=== PATIENT | female | born 1945 | race Caucasian/White ===

== ENCOUNTER 2016-07-08 09:57 | Outpatient (RCR) | payer MEDICARE, OTHER ==
--- OUTSIDE RECORDS SUMMARY | 2016-04-20 09:28 | XMS REPORT | Continuity of Care Document ---
Author Author [facility] Organization [facility] Address Unknown Phone Unavailable Care Team Providers Care Electronic Scanner Operator Name Role Phone Carlos Manuel Palumbo PCP [phone] Source Comments Some departments are not documenting in the electronic medical record. If you do not see the information that you expected, contact Release of Information in the Health Information Management department at [phone] for further assistance in locating additional records.[facility] Active Allergies and Adverse Reactions Allergen Noted Date Severity Reactions Comments Clindamycin 12/17/2014 Medium RASH Percolone 12/17/2014 Low NAUSEA ONLY Tetanus And Diphtheria 12/17/2014 Medium RASH Toxoids, Adsorbed, Adult Current Medications Prescription Sig. Disp. Refills Start End Date Status Date niacin (NIACIN) 100 mg Take 1,000 mg by mouth. Active tab hyoscyamine (ANASPAZ; Place 125 mcg under Active NULEV; SYMAX FASTABS; tongue every 4 hours as HYOMAX-FT; ED-SPAZ; needed for Cramps. OSCIMIN) 0.125 mg rapid dissolve tablet citalopram (CELEXA) 10 mg Take 10 mg by mouth Active tablet daily. pantoprazole DR Take 40 mg by mouth Active (PROTONIX) 40 mg tablet daily. levothyroxine (SYNTHROID) Take 175 mcg by mouth Active 175 mcg tablet daily. HYDROCODONE BIT/HOMATROP Take by mouth as Needed. Active ME-BR (HYDROCODONE Indications: 10-325 mg COMPOUND PO) aspirin 325 mg tablet Take 325 mg by mouth Active daily. zolpidem (AMBIEN) 10 mg Take 1 Tab by mouth at 30 Tab 1 12/18/19 Active tablet bedtime as needed for 15 Sleep. trametinib (MEKINIST) 2 Take 1 Tab by mouth 30 Tab 3 03/17/20 Active mg tab daily. Take at the same 15 time every day. dabrafenib 75 mg cap Take 2 Caps by mouth 120 Cap 3 03/17/20 Active twice daily. Take on an 15 empty stomach, at least 1 hour before or 2 hours after food. Active Problems Problem Noted Date Melanoma (HCC) 01/02/2015 Overview: Now recurrent, metastatic Coronary artery disease 01/02/2015 Overview: Asymptomatic at this time. Hypothyroidism 01/02/2015 Overview: Euthyroid by history on exam today. Social History Tobacco Use Types Packs/Day Years Used Date Never Smoker Last Filed Vital Signs Vital Sign Reading Time Taken Blood Pressure 163/76 12/17/2014 11:35 AM CDT Pulse 66 12/17/2014 11:35 AM CDT Temperature 36.6 C (97.9 F) 12/17/2014 11:35 AM CDT Respiratory Rate 20 12/17/2014 11:35 AM CDT Height 1.714 m (5' 7.48") 12/17/2014 11:35 AM CDT Weight 92.352 kg (203 lb 9.6 oz) 12/17/2014 11:35 AM CDT Body Mass Index 31.44 12/17/2014 11:35 AM CDT Oxygen Saturation 100% 12/17/2014 11:35 AM CDT Plan of Care Health Maintenance Due Date Last Done Comments Physical (Comprehensive) 01/18/1952 Exam Pertussis Vaccine 01/18/1956 Tetanus Vaccine 1962 Breast Cancer Screening 1985 Colorectal Cancer 1995 Screening Shingles Vaccine 2005 Osteoporosis Screening 2010 Prevnar/Pneumovax (#1) 2010 Influenza Vaccine 03/18/2016 Results from Last 3 Months Not on file
[2016-04-20 09:30] LABS: BASOPHILS # (AUTO) 0.1 10^3/uL (0.0-0.1); BASOPHILS % (AUTO) 1 % (0-10); EOSINOPHILS # (AUTO) 0.3 10^3/uL (0.0-0.3); EOSINOPHILS % (AUTO) 4 % (0-10); LYMPHOCYTES # (AUTO) 0.8 X 10^3 (1.0-4.0); LYMPHOCYTES % (AUTO) 13 % (12-44); MEAN CORPUSCULAR HEMOGLOBIN 28 PG (25-34); MEAN CORPUSCULAR HGB CONC 33 G/DL (32-36); MEAN CORPUSCULAR VOLUME 87 FL (80-99); MEAN PLATELET VOLUME 9.2 FL (7.4-10.4); MONOCYTES # (AUTO) 0.8 X 10^3 (0.0-1.0); MONOCYTES % (AUTO) 11 % (0-12); NEUTROPHILS # (AUTO) 4.7 X 10^3 (1.8-7.8); NEUTROPHILS % (AUTO) 71 % (42-75); PLATELET COUNT 346 10^3/uL (130-400); RED BLOOD COUNT 3.68 10^6/uL (4.35-5.85); WHITE BLOOD COUNT 6.6 10^3/uL (4.3-11.0)
[2016-04-20 10:14] LABS: ALBUMIN 4.2 G/DL (3.2-4.5); BILIRUBIN,TOTAL 2.3 MG/DL (0.1-1.0); CALCIUM 10.7 MG/DL (8.5-10.1); CREATININE SERUM 1.27 MG/DL (0.60-1.30); POTASSIUM 3.8 MMOL/L (3.6-5.0); TOTAL PROTEIN 6.9 G/DL (6.4-8.2)
[2016-04-23 10:41] LABS: BASOPHILS # (AUTO) 0.1 10^3/uL (0.0-0.1); BASOPHILS % (AUTO) 1 % (0-10); EOSINOPHILS # (AUTO) 0.2 10^3/uL (0.0-0.3); EOSINOPHILS % (AUTO) 4 % (0-10); LYMPHOCYTES # (AUTO) 0.8 X 10^3 (1.0-4.0); LYMPHOCYTES % (AUTO) 14 % (12-44); MEAN CORPUSCULAR HEMOGLOBIN 29 PG (25-34); MEAN CORPUSCULAR HGB CONC 32 G/DL (32-36); MEAN CORPUSCULAR VOLUME 88 FL (80-99); MONOCYTES # (AUTO) 0.5 X 10^3 (0.0-1.0); MONOCYTES % (AUTO) 8 % (0-12); NEUTROPHILS # (AUTO) 4.2 X 10^3 (1.8-7.8); NEUTROPHILS % (AUTO) 73 % (42-75); PLATELET COUNT 441 10^3/uL (130-400); RED BLOOD COUNT 4.04 10^6/uL (4.35-5.85); RED CELL DISTRIBUTION WIDTH 15.5 % (10.0-14.5); WHITE BLOOD COUNT 5.8 10^3/uL (4.3-11.0)
[2016-04-23 11:04] LABS: ALBUMIN 4.3 G/DL (3.2-4.5); BILIRUBIN,TOTAL 1.6 MG/DL (0.1-1.0); CALCIUM 10.1 MG/DL (8.5-10.1); CREATININE SERUM 1.15 MG/DL (0.60-1.30); POTASSIUM 3.5 MMOL/L (3.6-5.0); TOTAL PROTEIN 7.2 G/DL (6.4-8.2)
[2016-04-27 09:17] LABS: BASOPHILS # (AUTO) 0.1 10^3/uL (0.0-0.1); BASOPHILS % (AUTO) 2 % (0-10); EOSINOPHILS # (AUTO) 0.5 10^3/uL (0.0-0.3); EOSINOPHILS % (AUTO) 8 % (0-10); LYMPHOCYTES # (AUTO) 1.1 X 10^3 (1.0-4.0); LYMPHOCYTES % (AUTO) 21 % (12-44); MEAN CORPUSCULAR HEMOGLOBIN 29 PG (25-34); MEAN CORPUSCULAR HGB CONC 32 G/DL (32-36); MEAN CORPUSCULAR VOLUME 89 FL (80-99); MEAN PLATELET VOLUME 9.3 FL (7.4-10.4); MONOCYTES # (AUTO) 0.4 X 10^3 (0.0-1.0); MONOCYTES % (AUTO) 8 % (0-12); NEUTROPHILS # (AUTO) 3.3 X 10^3 (1.8-7.8); NEUTROPHILS % (AUTO) 61 % (42-75); PLATELET COUNT 454 10^3/uL (130-400); RED BLOOD COUNT 3.74 10^6/uL (4.35-5.85); RED CELL DISTRIBUTION WIDTH 15.8 % (10.0-14.5); WHITE BLOOD COUNT 5.3 10^3/uL (4.3-11.0)
[2016-04-27 09:59] LABS: BILIRUBIN,TOTAL 0.8 MG/DL (0.1-1.0); CALCIUM 9.7 MG/DL (8.5-10.1); CREATININE SERUM 0.97 MG/DL (0.60-1.30); POTASSIUM 4.2 MMOL/L (3.6-5.0); TOTAL PROTEIN 6.6 G/DL (6.4-8.2)
[2016-05-04 10:14] LABS: BASOPHILS # (AUTO) 0.1 10^3/uL (0.0-0.1); BASOPHILS % (AUTO) 2 % (0-10); EOSINOPHILS # (AUTO) 0.4 10^3/uL (0.0-0.3); EOSINOPHILS % (AUTO) 8 % (0-10); LYMPHOCYTES # (AUTO) 0.6 X 10^3 (1.0-4.0); LYMPHOCYTES % (AUTO) 13 % (12-44); MEAN CORPUSCULAR HEMOGLOBIN 28 PG (25-34); MEAN CORPUSCULAR HGB CONC 31 G/DL (32-36); MEAN CORPUSCULAR VOLUME 89 FL (80-99); MEAN PLATELET VOLUME 9.4 FL (7.4-10.4); MONOCYTES # (AUTO) 0.4 X 10^3 (0.0-1.0); MONOCYTES % (AUTO) 8 % (0-12); NEUTROPHILS # (AUTO) 3.1 X 10^3 (1.8-7.8); NEUTROPHILS % (AUTO) 69 % (42-75); PLATELET COUNT 345 10^3/uL (130-400); RED BLOOD COUNT 3.73 10^6/uL (4.35-5.85); RED CELL DISTRIBUTION WIDTH 15.6 % (10.0-14.5); WHITE BLOOD COUNT 4.5 10^3/uL (4.3-11.0)
[2016-05-04 11:20] LABS: ALBUMIN 4.1 G/DL (3.2-4.5); BILIRUBIN,TOTAL 0.7 MG/DL (0.1-1.0); CALCIUM 9.7 MG/DL (8.5-10.1); CREATININE SERUM 1.23 MG/DL (0.60-1.30); POTASSIUM 4.6 MMOL/L (3.6-5.0); TOTAL PROTEIN 6.8 G/DL (6.4-8.2)
[2016-05-11 09:16] LABS: BASOPHILS # (AUTO) 0.1 10^3/uL (0.0-0.1); BASOPHILS % (AUTO) 2 % (0-10); EOSINOPHILS # (AUTO) 0.5 10^3/uL (0.0-0.3); EOSINOPHILS % (AUTO) 10 % (0-10); LYMPHOCYTES # (AUTO) 0.6 X 10^3 (1.0-4.0); LYMPHOCYTES % (AUTO) 13 % (12-44); MEAN CORPUSCULAR HEMOGLOBIN 28 PG (25-34); MEAN CORPUSCULAR HGB CONC 32 G/DL (32-36); MEAN CORPUSCULAR VOLUME 88 FL (80-99); MEAN PLATELET VOLUME 9.3 FL (7.4-10.4); MONOCYTES # (AUTO) 0.4 X 10^3 (0.0-1.0); MONOCYTES % (AUTO) 8 % (0-12); NEUTROPHILS # (AUTO) 3.3 X 10^3 (1.8-7.8); NEUTROPHILS % (AUTO) 68 % (42-75); PLATELET COUNT 389 10^3/uL (130-400); RED BLOOD COUNT 3.78 10^6/uL (4.35-5.85); RED CELL DISTRIBUTION WIDTH 15.1 % (10.0-14.5); WHITE BLOOD COUNT 4.9 10^3/uL (4.3-11.0)
[2016-05-11 10:00] LABS: ALBUMIN 4.1 G/DL (3.2-4.5); BILIRUBIN,TOTAL 0.5 MG/DL (0.1-1.0); CALCIUM 9.5 MG/DL (8.5-10.1); CREATININE SERUM 1.26 MG/DL (0.60-1.30); POTASSIUM 4.8 MMOL/L (3.6-5.0); TOTAL PROTEIN 6.8 G/DL (6.4-8.2)
[2016-05-25 09:23] LABS: BASOPHILS % (AUTO) 1 % (0-10); EOSINOPHILS # (AUTO) 0.5 10^3/uL (0.0-0.3); EOSINOPHILS % (AUTO) 8 % (0-10); LYMPHOCYTES # (AUTO) 1.1 X 10^3 (1.0-4.0); LYMPHOCYTES % (AUTO) 15 % (12-44); MEAN CORPUSCULAR HEMOGLOBIN 28 PG (25-34); MEAN CORPUSCULAR HGB CONC 32 G/DL (32-36); MEAN CORPUSCULAR VOLUME 86 FL (80-99); MEAN PLATELET VOLUME 9.2 FL (7.4-10.4); MONOCYTES # (AUTO) 0.6 X 10^3 (0.0-1.0); MONOCYTES % (AUTO) 9 % (0-12); NEUTROPHILS # (AUTO) 4.7 X 10^3 (1.8-7.8); NEUTROPHILS % (AUTO) 68 % (42-75); PLATELET COUNT 339 10^3/uL (130-400); RED BLOOD COUNT 3.76 10^6/uL (4.35-5.85); RED CELL DISTRIBUTION WIDTH 14.9 % (10.0-14.5)
[2016-05-25 10:05] LABS: ALBUMIN 4.2 G/DL (3.2-4.5); BILIRUBIN,TOTAL 0.5 MG/DL (0.1-1.0); CALCIUM 9.9 MG/DL (8.5-10.1); CREATININE SERUM 1.15 MG/DL (0.60-1.30); POTASSIUM 4.6 MMOL/L (3.6-5.0); TOTAL PROTEIN 6.5 G/DL (6.4-8.2)
[2016-06-09 14:03] LABS: BASOPHILS # (AUTO) 0.1 10^3/uL (0.0-0.1); BASOPHILS % (AUTO) 1 % (0-10); EOSINOPHILS # (AUTO) 0.3 10^3/uL (0.0-0.3); EOSINOPHILS % (AUTO) 5 % (0-10); LYMPHOCYTES # (AUTO) 0.9 X 10^3 (1.0-4.0); LYMPHOCYTES % (AUTO) 16 % (12-44); MEAN CORPUSCULAR HEMOGLOBIN 27 PG (25-34); MEAN CORPUSCULAR HGB CONC 32 G/DL (32-36); MEAN CORPUSCULAR VOLUME 84 FL (80-99); MONOCYTES # (AUTO) 0.5 X 10^3 (0.0-1.0); MONOCYTES % (AUTO) 10 % (0-12); NEUTROPHILS # (AUTO) 3.7 X 10^3 (1.8-7.8); NEUTROPHILS % (AUTO) 68 % (42-75); PLATELET COUNT 320 10^3/uL (130-400); RED BLOOD COUNT 3.76 10^6/uL (4.35-5.85); RED CELL DISTRIBUTION WIDTH 15.1 % (10.0-14.5); WHITE BLOOD COUNT 5.5 10^3/uL (4.3-11.0)
[2016-06-09 14:35] LABS: ALBUMIN 4.2 G/DL (3.2-4.5); BILIRUBIN,TOTAL 0.4 MG/DL (0.1-1.0); CALCIUM 10.2 MG/DL (8.5-10.1); CREATININE SERUM 1.18 MG/DL (0.60-1.30); POTASSIUM 5.2 MMOL/L (3.6-5.0); TOTAL PROTEIN 6.6 G/DL (6.4-8.2)
[2016-06-23 10:03] LABS: BASOPHILS # (AUTO) 0.1 10^3/uL (0.0-0.1); BASOPHILS % (AUTO) 1 % (0-10); EOSINOPHILS # (AUTO) 0.3 10^3/uL (0.0-0.3); EOSINOPHILS % (AUTO) 5 % (0-10); LYMPHOCYTES # (AUTO) 0.9 X 10^3 (1.0-4.0); LYMPHOCYTES % (AUTO) 18 % (12-44); MEAN CORPUSCULAR HEMOGLOBIN 26 PG (25-34); MEAN CORPUSCULAR HGB CONC 31 G/DL (32-36); MEAN CORPUSCULAR VOLUME 83 FL (80-99); MONOCYTES # (AUTO) 0.5 X 10^3 (0.0-1.0); MONOCYTES % (AUTO) 10 % (0-12); NEUTROPHILS # (AUTO) 3.4 X 10^3 (1.8-7.8); NEUTROPHILS % (AUTO) 66 % (42-75); PLATELET COUNT 327 10^3/uL (130-400); RED BLOOD COUNT 4.26 10^6/uL (4.35-5.85); RED CELL DISTRIBUTION WIDTH 15.3 % (10.0-14.5); WHITE BLOOD COUNT 5.1 10^3/uL (4.3-11.0)
[2016-06-23 10:37] LABS: ALBUMIN 4.4 G/DL (3.2-4.5); BILIRUBIN,TOTAL 0.5 MG/DL (0.1-1.0); CALCIUM 9.9 MG/DL (8.5-10.1); CREATININE SERUM 1.28 MG/DL (0.60-1.30); POTASSIUM 4.9 MMOL/L (3.6-5.0)
[~2016-07-08 09:57] MED LIST: ACET-2267 PO; ACYC400T PO; AMT10T; ASP325T PO; ATOR80TA; BENZ200C25 PO; CALC-671 PO; CITA10TA PO; CITA10TA7 PO; CLD600T PO; CLN150C PO; DABR75CA PO; DICY10CA26 PO; ESCT10T PO; FENO135C PO; FLT05NA16 NSEACH; FLUT16SP22 NS; GABA-486 PO; HYDR-3454 PO; HYDR-3812 PO; HYDR-3820 PO; HYOS0.1216 PO; HYOS0.1217 PO; HYOS0.127 PO; LCT30U PO; LEVO75TA57 PO; LEVO75TA6 PO; LEVSIN; LUBI24CA PO; MAGNESIUM PO; METO50TA7 PO; NAPR220T76 PO; NFBIOT1000 PO; NIA500ERT PO; NIAC100045 PO; NTR.4SL SL; OMEG1CAP74 PO; ONDA4TAB10 PO; PANT40TA PO; PANT40TA3 PO; PNT40TEC PO; POLY119P PO; POLY17PO23 PO; PROVIGIL; RNT150T PO; SYNTHROID; TRAM2TAB PO; TRAM50TA2 PO; TRIA1CAP PO; TRM50T PO; VEMU240T PO; VITD PO; ZANTAC PO
[2016-07-08 10:11] LABS: BASOPHILS # (AUTO) 0.1 10^3/uL (0.0-0.1); BASOPHILS % (AUTO) 1 % (0-10); EOSINOPHILS # (AUTO) 0.3 10^3/uL (0.0-0.3); EOSINOPHILS % (AUTO) 4 % (0-10); LYMPHOCYTES # (AUTO) 0.8 X 10^3 (1.0-4.0); LYMPHOCYTES % (AUTO) 13 % (12-44); MEAN CORPUSCULAR HEMOGLOBIN 26 PG (25-34); MEAN CORPUSCULAR HGB CONC 31 G/DL (32-36); MEAN CORPUSCULAR VOLUME 84 FL (80-99); MEAN PLATELET VOLUME 10.1 FL (7.4-10.4); MONOCYTES # (AUTO) 0.5 X 10^3 (0.0-1.0); MONOCYTES % (AUTO) 9 % (0-12); NEUTROPHILS # (AUTO) 4.3 X 10^3 (1.8-7.8); NEUTROPHILS % (AUTO) 73 % (42-75); PLATELET COUNT 302 10^3/uL (130-400); RED BLOOD COUNT 4.29 10^6/uL (4.35-5.85); RED CELL DISTRIBUTION WIDTH 15.1 % (10.0-14.5); WHITE BLOOD COUNT 5.9 10^3/uL (4.3-11.0)
[2016-07-08 10:32] LABS: ALBUMIN 4.5 G/DL (3.2-4.5); BILIRUBIN,TOTAL 0.5 MG/DL (0.1-1.0); CALCIUM 10.1 MG/DL (8.5-10.1); CREATININE SERUM 1.24 MG/DL (0.60-1.30); TOTAL PROTEIN 7.2 G/DL (6.4-8.2)
== END 2016-07-19 | disposition home or self-care (01) ==
LOC: ONC 09:57
PROVIDERS: ATTEND Internal Medicine Hematology & Oncology
DX: C43.59 Malignant melanoma of other part of trunk (principal); Z85.3 Personal history of malignant neoplasm of breast; Z92.3 Personal history of irradiation; Z79.899 Other long term (current) drug therapy; Z45.2 Encounter for adjustment and management of vascular access device
CPT/HCPCS: 36415; 80053; 83615; 85025; 96523; 99213

== ENCOUNTER → 2016-08-10 | Outpatient (CLI) | payer MEDICARE, OTHER ==
--- OUTSIDE RECORDS SUMMARY | 2016-08-10 10:05 | XMS REPORT | Continuity of Care Document ---
Author Author [facility] Organization [facility] Address Unknown Phone Unavailable Care Team Providers Care Information Technology Project Manager Name Role Phone Carlos Manuel Palumbo PCP [phone] Source Comments Some departments are not documenting in the electronic medical record. If you do not see the information that you expected, contact Release of Information in the Health Information Management department at [phone] for further assistance in locating additional records.[facility] Active Allergies and Adverse Reactions Allergen [...]
--- NOTE | 2016-08-11 14:33 | Diagnostic Imaging Report ---
EXAMINATION: PET/CT subsequent. INDICATION: Melanoma. After intravenous administration of 14.95 mCi of F18-FDG, a series of overlapping emission and transmission PET images was obtained. In the coronal, transaxial and sagittal planes, the area imaged extended from the skull base through the upper thighs. The lower extremities were also included on this exam. FINDINGS: The previous PET/CT exam of 03/09/16 noted a hypermetabolic mass in the right adductor luis a muscle along the medial aspect of the right upper thigh. This lesion had a maximum SUV of 5.5. On the subsequent MRI right lower extremity exam of 03/11/16, there was a 6.6 x 3.6 x 3.8 cm enhancing mass in this area. On this study, the area of abnormal hypermetabolic activity in the adductor luis a muscle on the right has diminished considerably. The maximum SUV in this area is now only 1.04. The muscle itself also seems somewhat small and I do feel that the mass has decreased in size. In the interval since the previous study, a very small 2.7 x 3.8 cm oval area of increased activity has developed in the soft tissues along the medial aspect of the junction of the thigh and the pelvis (PET image 276 and 277 of 299). This area has a maximum SUV of 3.7. There is no discrete mass in this area on the PET/CT images, however, but there is an area of slightly altered density in the fat. This finding is questionable for malignancy. I would recommend that a repeat MRI pelvis and right upper extremity exam be performed for further evaluation. The previous exam also noted slightly increased FDG uptake anterior to the left Achilles tendon. This was felt to be a sequela of prior trauma and/or inflammation. That finding is again evident and does not seem to have changed significantly. The maximum SUV in this area is only 1.1. There is also a small focal area of slightly increased metabolic activity along the medial aspect of the proximal left tibia. This was not present on the prior exam. The maximum SUV of this lesion is only 1.1. Consequently, this is unlikely to be neoplastic in nature. Also, in the interval since the prior study, a small focus of increased activity has developed near the junction of the left maxillary sinus and left zygomatic arch. This area has a maximum SUV of 3.8. There is no sign of bony destruction in this area on the CT images. It would be unusual that this abnormal uptake is secondary to metastatic disease but that possibility cannot be entirely excluded. If further imaging is desired, then MRI would be recommended. There is also increased activity within the adenoids. The maximum SUV in this area is 4.0. This finding is unlikely to be related to metastatic disease. There is also generalized increased activity in both lobes of the thyroid. The maximum SUV is 4.2 and this too is unlikely to be secondary to neoplastic disease. There is no hypermetabolic activity within the chest or abdomen to indicate a neoplastic disease. Physiologic activity is again seen in the kidneys, bowel, bladder, brain and heart. There is also slight increased activity involving both hip and shoulder joints. This is probably degenerative in nature. IMPRESSION: 1. The hypermetabolic focus in the adductor luis a muscle on the right seen on the prior exam has diminished significantly. However, a new small focus of increased activity has developed along the medial aspect of the junction of the right thigh and the pelvis. This finding is suspicious for neoplastic disease. MRI would be recommended for additional study. 2. A new area of abnormal uptake has also developed at the zygomatic maxillary junction on the left. It would be unlikely that this is secondary to metastatic disease. Even so, that possibility should still be considered. MRI would also be recommended for further evaluation of this area. 3. There is no other hypermetabolic activity identified to indicate metastatic disease. 4. The uptake in the adenoids and thyroid gland is probably physiologic in nature although it is more pronounced than on the prior exam. 5. These results were discussed with Taisha BOYD. Dictated by: Dictated on workstation # [id number]
== END ==
LOC: RAD 10:02
PROVIDERS: ATTEND Internal Medicine Hematology & Oncology
DX: C43.59 Malignant melanoma of other part of trunk (principal)

== ENCOUNTER → 2016-10-13 | Outpatient (CLI) | payer MEDICARE, OTHER ==
[~2016-10-13] MED LIST changes: +CATHETER FLUSH 10 ML SYR IV PRN; +IOHEXOL 350 MG/ML 100 ML (OMNIPAQUE 350) VIAL IV ONE; +NS 100 ML (IVPB) BAG IV ONE
--- NOTE | 2016-10-13 12:32 | Diagnostic Imaging Report ---
PROCEDURE: CT head with and without contrast. TECHNIQUE: Multiple contiguous axial images were obtained through the brain before and after the administration of intravenous contrast. INDICATION: Fall with head injury Comparison is made to study of 02/09/2016. Ventricles and sulci are diffusely prominent. No hemorrhage is identified. There is no abnormal mass effect or shift of midline structures. There is no abnormal contrast enhancement. Calvarium is intact and the visualized paranasal sinuses are clear. Globes are also intact. IMPRESSION: No acute abnormality is detected. Dictated by: Dictated on workstation # [id number]
== END ==
LOC: RAD 11:31
PROVIDERS: ATTEND Nurse Practitioner Adult Health
DX: C43.59 Malignant melanoma of other part of trunk (principal); R26.9 Unspecified abnormalities of gait and mobility; R51 Headache; R42 Dizziness and giddiness
CPT/HCPCS: 70470

== ENCOUNTER → 2016-10-20 | Outpatient (CLI) | payer MEDICARE, OTHER ==
[~2016-10-20] MED LIST changes: -CATHETER FLUSH 10 ML SYR IV PRN; -IOHEXOL 350 MG/ML 100 ML (OMNIPAQUE 350) VIAL IV ONE; -NS 100 ML (IVPB) BAG IV ONE
--- NOTE | 2016-10-20 19:29 | Diagnostic Imaging Report ---
Digital mammogram bilateral diagnostic. INDICATION: History of right breast cancer, right breast lump. This study was compared to the prior exams of 03/19/15, 02/26/14 and 02/15/13. At this time, there is clinical concern regarding a palpable abnormality in the medial aspect of the right breast. The current study was also evaluated with a Computer Aided Detection (CAD) system. FINDINGS: On this study, there is no primary or secondary sign of malignancy involving the medial half of the right breast. Ultrasound has been scheduled for further study. The fibroglandular tissue in both breasts is heterogeneously dense. This does limit the sensitivity of this exam. As seen on the prior studies, the right breast is smaller. A few coarse calcifications have developed deep in the mid lateral aspect of the right breast. These have a generally benign appearance. There is no primary or secondary sign of malignancy involving either breast. IMPRESSION: There is no evidence of malignancy. In particular, there is no abnormality in the area of the patient's palpable area in the medial aspect of the right breast. Ultrasound has been scheduled for further study, however. ACR BI-RADS Category 0: Incomplete. (Needs additional imaging evaluation). Result letter will be mailed to the patient. Note: At least 10% of breast cancer is not imaged by mammography. Dictated by: Dictated on workstation # [id number]
--- NOTE | 2016-10-20 20:06 | Diagnostic Imaging Report ---
EXAMINATION: Ultrasound of the right breast. INDICATION: Right breast mass. FINDINGS: Reportedly, there is clinical concern regarding a palpable abnormality in the medial aspect of the right breast. The diagnostic mammogram performed earlier today failed to show any sign of malignancy in this area. On this exam, there is a well-circumscribed 0.7 x 0.7 x 0.8 cm avascular hypoechoic lesion in the 5-6 o'clock position of the breast, roughly 2 cm from the nipple. In reviewing the mammogram, there was a similar sized calcification in this area which has been present for a number of years. I do suspect that this is a benign process. There is no solid lesion to suggest malignancy. If clinical concern regarding a palpable abnormality persists, however, then biopsy should still be considered. IMPRESSION: 1. There is no evidence of malignancy. Recommendations as above. 2. These results were discussed with DEB Shine. ACR BI-RADS Category 2: Benign findings. Dictated by: Dictated on workstation # [id number]
== END ==
LOC: RAD 14:01
PROVIDERS: ATTEND Nurse Practitioner Adult Health
DX: N63 Unspecified lump in breast (principal); Z85.3 Personal history of malignant neoplasm of breast
CPT/HCPCS: 77066

== ENCOUNTER 2016-11-08 13:54 | Outpatient (RCR) | payer MEDICARE, OTHER ==
--- OUTSIDE RECORDS SUMMARY | 2016-08-16 10:22 | XMS REPORT | Continuity of Care Document ---
Author Author [facility] Organization [facility] Address Unknown Phone Unavailable Care Team Providers Care Wall Mirror Department Supervisor Name Role Phone Carlos Manuel Palumbo PCP [phone] Source Comments Some departments are not documenting in the electronic medical record. If you do not see the information that you expected, contact Release of Information in the Health Information Management department at [phone] for further assistance in locating additional records.[facility] Active Allergies and Adverse Reactions Allergen [...]
[2016-08-16 10:51] LABS: BASOPHILS % (AUTO) 1 % (0-10); EOSINOPHILS # (AUTO) 0.1 10^3/uL (0.0-0.3); EOSINOPHILS % (AUTO) 2 % (0-10); LYMPHOCYTES # (AUTO) 0.7 X 10^3 (1.0-4.0); LYMPHOCYTES % (AUTO) 12 % (12-44); MEAN CORPUSCULAR HEMOGLOBIN 26 PG (25-34); MEAN CORPUSCULAR HGB CONC 32 G/DL (32-36); MEAN CORPUSCULAR VOLUME 83 FL (80-99); MEAN PLATELET VOLUME 9.7 FL (7.4-10.4); MONOCYTES # (AUTO) 0.4 X 10^3 (0.0-1.0); MONOCYTES % (AUTO) 7 % (0-12); NEUTROPHILS # (AUTO) 4.6 X 10^3 (1.8-7.8); NEUTROPHILS % (AUTO) 78 % (42-75); PLATELET COUNT 299 10^3/uL (130-400); RED BLOOD COUNT 4.26 10^6/uL (4.35-5.85); RED CELL DISTRIBUTION WIDTH 15.7 % (10.0-14.5)
[2016-08-16 11:39] LABS: ALBUMIN 4.2 G/DL (3.2-4.5); BILIRUBIN,TOTAL 0.4 MG/DL (0.1-1.0); CALCIUM 9.9 MG/DL (8.5-10.1); CREATININE SERUM 1.31 MG/DL (0.60-1.30); POTASSIUM 4.4 MMOL/L (3.6-5.0); TOTAL PROTEIN 6.7 G/DL (6.4-8.2)
[2016-09-13 11:25] LABS: BASOPHILS % (AUTO) 1 % (0-10); EOSINOPHILS # (AUTO) 0.2 10^3/uL (0.0-0.3); EOSINOPHILS % (AUTO) 4 % (0-10); LYMPHOCYTES # (AUTO) 0.9 X 10^3 (1.0-4.0); LYMPHOCYTES % (AUTO) 15 % (12-44); MEAN CORPUSCULAR HEMOGLOBIN 26 PG (25-34); MEAN CORPUSCULAR HGB CONC 32 G/DL (32-36); MEAN CORPUSCULAR VOLUME 82 FL (80-99); MEAN PLATELET VOLUME 9.9 FL (7.4-10.4); MONOCYTES # (AUTO) 0.4 X 10^3 (0.0-1.0); MONOCYTES % (AUTO) 7 % (0-12); NEUTROPHILS # (AUTO) 4.3 X 10^3 (1.8-7.8); NEUTROPHILS % (AUTO) 74 % (42-75); PLATELET COUNT 299 10^3/uL (130-400); RED BLOOD COUNT 4.51 10^6/uL (4.35-5.85); RED CELL DISTRIBUTION WIDTH 15.3 % (10.0-14.5); WHITE BLOOD COUNT 5.8 10^3/uL (4.3-11.0)
[2016-09-13 11:57] LABS: ALBUMIN 4.1 G/DL (3.2-4.5); BILIRUBIN,TOTAL 0.5 MG/DL (0.1-1.0); CALCIUM 10.1 MG/DL (8.5-10.1); CREATININE SERUM 1.3 MG/DL (0.60-1.30); POTASSIUM 4.4 MMOL/L (3.6-5.0); TOTAL PROTEIN 6.8 G/DL (6.4-8.2)
[2016-10-11 11:45] LABS: BASOPHILS % (AUTO) 1 % (0-10); EOSINOPHILS # (AUTO) 0.1 10^3/uL (0.0-0.3); EOSINOPHILS % (AUTO) 3 % (0-10); LYMPHOCYTES # (AUTO) 0.9 X 10^3 (1.0-4.0); LYMPHOCYTES % (AUTO) 22 % (12-44); MEAN CORPUSCULAR HEMOGLOBIN 26 PG (25-34); MEAN CORPUSCULAR HGB CONC 32 G/DL (32-36); MEAN CORPUSCULAR VOLUME 82 FL (80-99); MEAN PLATELET VOLUME 9.6 FL (7.4-10.4); MONOCYTES # (AUTO) 0.5 X 10^3 (0.0-1.0); MONOCYTES % (AUTO) 12 % (0-12); NEUTROPHILS # (AUTO) 2.7 X 10^3 (1.8-7.8); NEUTROPHILS % (AUTO) 62 % (42-75); PLATELET COUNT 273 10^3/uL (130-400); RED BLOOD COUNT 4.57 10^6/uL (4.35-5.85); RED CELL DISTRIBUTION WIDTH 14.9 % (10.0-14.5); WHITE BLOOD COUNT 4.3 10^3/uL (4.3-11.0)
[2016-10-11 12:40] LABS: ALBUMIN 4.2 G/DL (3.2-4.5); BILIRUBIN,TOTAL 0.4 MG/DL (0.1-1.0); CALCIUM 10.4 MG/DL (8.5-10.1); CREATININE SERUM 1.28 MG/DL (0.60-1.30); POTASSIUM 4.7 MMOL/L (3.6-5.0)
[~2016-11-08 13:54] MED LIST changes: +NS IV 1000 ML (CANCER CTR) 1,000 ML ONE
[2016-11-08 14:24] LABS: BASOPHILS % (AUTO) 1 % (0-10); EOSINOPHILS # (AUTO) 0.1 10^3/uL (0.0-0.3); EOSINOPHILS % (AUTO) 3 % (0-10); LYMPHOCYTES # (AUTO) 0.6 X 10^3 (1.0-4.0); LYMPHOCYTES % (AUTO) 15 % (12-44); MEAN CORPUSCULAR HEMOGLOBIN 26 PG (25-34); MEAN CORPUSCULAR HGB CONC 32 G/DL (32-36); MEAN CORPUSCULAR VOLUME 82 FL (80-99); MEAN PLATELET VOLUME 9.3 FL (7.4-10.4); MONOCYTES # (AUTO) 0.3 X 10^3 (0.0-1.0); MONOCYTES % (AUTO) 8 % (0-12); NEUTROPHILS % (AUTO) 74 % (42-75); PLATELET COUNT 248 10^3/uL (130-400); RED CELL DISTRIBUTION WIDTH 14.8 % (10.0-14.5); WHITE BLOOD COUNT 4.1 10^3/uL (4.3-11.0)
[2016-11-08 14:55] LABS: ALBUMIN 4.3 G/DL (3.2-4.5); BILIRUBIN,TOTAL 0.5 MG/DL (0.1-1.0); CALCIUM 9.9 MG/DL (8.5-10.1); CREATININE SERUM 1.3 MG/DL (0.60-1.30); POTASSIUM 3.9 MMOL/L (3.6-5.0); TOTAL PROTEIN 7.3 G/DL (6.4-8.2)
== END 2016-11-14 | disposition home or self-care (01) ==
LOC: ONC 13:54
PROVIDERS: ATTEND Internal Medicine Hematology & Oncology
DX: C43.59 Malignant melanoma of other part of trunk (principal); Z85.3 Personal history of malignant neoplasm of breast; Z92.3 Personal history of irradiation; Z79.899 Other long term (current) drug therapy
CPT/HCPCS: 36591; 80053; 83615; 85025; 93005; 96360; 96361; 99213

== ENCOUNTER → 2016-11-19 | Outpatient (CLI) | payer MEDICARE, OTHER ==
[~2016-11-19] MED LIST changes: -NS IV 1000 ML (CANCER CTR) 1,000 ML ONE
--- NOTE | 2016-11-19 16:43 | Diagnostic Imaging Report ---
CLINICAL INDICATION: Patient is having dizziness, lightheadedness, off balance since 11/04/2016. Patient has history of breast cancer in 1999 and now has metastatic melanoma. Patient is currently taking chemo pills daily. EXAM: MRI of the brain performed without IV contrast. Sequences include axial DWI, ADC map, axial T2, axial FLAIR, axial T1, axial gradient echo, and sagittal T1. COMPARISON: MRI of the brain performed without IV contrast dated 05/19/2015. FINDINGS: There is no evidence of acute cerebral infarct, intracranial hemorrhage, or gross mass effect. The previously seen small area of acute cerebral infarct involving the right cerebellum has resolved, and there is not much residual high T2 signal. There is otherwise no significant change to the focal areas of high T2 signal white matter changes in both cerebral hemispheres suspected to represent chronic small vessel ischemic disease. There is normal orozco-white matter distinction. The brain parenchymal volume appears appropriate for patient's age. There is no significant midline shift or herniation. The visualized [place] vascular structures have normal flow void appearance. There is no evidence of hydrocephalus. The basal cisterns are unremarkable. The skull, extracranial soft tissue, and orbits are unremarkable. There is minimal mucosal thickening involving the ethmoid sinus. IMPRESSION: 1: There is no evidence of acute cerebral infarction, intracranial hemorrhage, hydrocephalus, or mass effect. There is no interval evidence of metastatic disease on this non-IV contrasted exam. 2: There is evolution of the previously seen acute lacunar infarct in the right cerebellum with not much residual high T2 signal in the region. 3: There is no significant change to the age-related brain parenchymal changes with chronic small vessel ischemic disease. Dictated by: Dictated on workstation # [id number]
== END ==
LOC: RAD 15:54
PROVIDERS: ATTEND Internal Medicine
DX: R42 Dizziness and giddiness (principal); Z85.3 Personal history of malignant neoplasm of breast; C43.59 Malignant melanoma of other part of trunk
CPT/HCPCS: 70551

== ENCOUNTER → 2016-12-07 | Outpatient (CLI) | payer MEDICARE, OTHER | LOC: LAB 11:03 | PROVIDERS: ATTEND Internal Medicine | DX: E03.9 Hypothyroidism, unspecified (principal) | CPT/HCPCS: 84443 ==

== ENCOUNTER 2016-12-16 05:32 | Outpatient (CLI) | payer MEDICARE, OTHER ==
[~2016-12-16] VITALS: Ht 175.3 cm; Wt 68.1 kg
[2016-12-16] MEDS ORDERED: MECL-106 PO (12:44)
[2016-12-16] MEDS ORDERED: VEMU240T PO (12:44)
== END 2016-12-16 14:17 ==
LOC: PREOP 05:32
PROVIDERS: ATTEND Surgery
DX: Z01.818 Encounter for other preprocedural examination (principal); L98.9 Disorder of the skin and subcutaneous tissue, unspecified; Z85.820 Personal history of malignant melanoma of skin

== ENCOUNTER 2016-12-22 10:59 | Day surgery (SDC) | payer MEDICARE, OTHER ==
[~2016-12-22] VITALS: Ht 175.3 cm; Wt 68.1 kg
[~2016-12-22 10:59] MED LIST changes: +MECL-106 PO
[2016-12-22 11:30] VITALS: BP 148/81
--- NOTE | 2016-12-22 11:31 | Progress Note-Pre Operative ---
Pre-Operative Progress Note H&P Reviewed The H&P was reviewed, patient examined and no changes noted. Date Seen by Provider: Dec 22, 2016 Time Seen by Provider: 11:31 Date H&P Reviewed: Dec 22, 2016 Time H&P Reviewed: 11:31 Pre-Operative Diagnosis: skin lesion RIKA WYNNE MD Dec 22, 2016 11:31 am
[2016-12-22] MEDS ORDERED: LACTATED RINGERS 1,000 ML IV PRN (11:34)
[2016-12-22] MEDS ORDERED: FAMOTIDINE 20MG/2ML IV (PEPCID) IV ONE (11:45)
[2016-12-22] MEDS ORDERED: ceFAZolin 1,000 MG (ANCEF) VIAL ONE (11:57)
[2016-12-22] MEDS ORDERED: NS (IVPB) 50 ML ONE (11:57)
[2016-12-22] MEDS ORDERED: ceFAZolin 1 GM/NS 50 ML IVPB IV ONE ×2 (12:15)
[2016-12-22] MEDS ORDERED: CATHETER FLUSH 10 ML SYR IV PRN (12:15)
[2016-12-22] MEDS ORDERED: proPOfol 200 MG/20 ML (DIPRIVAN) VIAL IV ONE (12:20)
[2016-12-22] MEDS ORDERED: ONDANSETRON 4 MG/2 ML (SDV) Z0FRAN ONE (12:20)
[2016-12-22] MEDS ORDERED: MIDAZOLAM 2 MG/2 ML (VERSED) VIAL ONE (12:20)
[2016-12-22] MEDS ORDERED: BUPIVACAINE 0.25% 30 ML (SENSORCAINE) VIAL ONE (13:04)
--- NOTE | 2016-12-22 13:47 | Progress Note-Post Operative ---
Post-Operative Progess Note Surgeon (s)/Berry Planter (s) Surgeon RIKA WYNNE MD Berry Planter: not applicable Pre-Operative Diagnosis skin lesions Post-Operative Diagnosis same Procedure & Operative Findings Date of Procedure 12/22/16 Procedure Performed/Findings excision 2 Anesthesia Type sedation with local Estimated Blood Loss Estimated blood loss (mL): minimal Specimens/Packing Specimens Removed skin lesions 2 RIKA WYNNE MD Dec 22, 2016 1:47 pm
[2016-12-22] MEDS ORDERED: TRAM50TA2 PO (13:51)
--- NOTE | 2016-12-22 13:52 | Discharge Inst-Simple/Standard ---
Discharge Inst-Standard Discharge Medications New, Converted or Re-Newed RX: RX on Chart Patient Instructions/Follow Up Plan of Care/Instructions/FU: dressings off in 48 hours. Follow-up with my nurse in 10 days for suture removal Activity as Tolerated: Yes Discharge Diet: No Restrictions RIKA WYNNE MD Dec 22, 2016 1:52 pm
[2016-12-22] MEDS ORDERED: fentaNYL INJECTION 100 MCG/2 ML AMP IVP PRN (14:00)
[2016-12-22] MEDS ORDERED: ONDANSETRON 4 MG/2 ML (SDV) Z0FRAN IVP PRN (14:00)
[2016-12-22 14:15] VITALS: BP 146/79
[2016-12-22 14:45] VITALS: BP 155/77
[2016-12-22 15:15] VITALS: BP 147/77
[2016-12-22 15:18] VITALS: BP 147/77
--- NOTE | 2016-12-22 22:47 | OPERATIVE REPORT ---
DATE OF SERVICE: 12/22/2016 PREOPERATIVE DIAGNOSES: 1. A 1 cm pigmented lesion, left supraclavicular region. 2. A 1 cm pigmented lesion, left leg. POSTOPERATIVE DIAGNOSES: 1. A 1 cm pigmented lesion, left supraclavicular region. 2. A 1 cm pigmented lesion, left leg. OPERATION: Excision of both. SURGEON: Rika Wynne MD ANESTHESIA: Sedation with local. BLOOD LOSS: Minimal. FLUIDS: 300 mL of crystalloid. TYPE OF WOUND: Type 1 (clean wound). INDICATION FOR PROCEDURE: This lady with a previous history of melanoma, presented with a 1 cm pigmented lesion over the left supraclavicular fossa and a similar lesion over the left distal leg. She was offered excision under monitored conditions. Informed consent was obtained after reviewing the procedures in detail. DESCRIPTION OF PROCEDURE: She was placed supine on the operating table, and our WORK ADJUSTMENT INSTRUCTOR administered sedation, monitoring her vital signs. A gram of Ancef was administered intravenously as prophylaxis against wound infection. Both areas were prepared and draped in the usual sterile manner. Local anesthesia was achieved using 0.25% Marcaine. By making an elliptical incision about 1.5 cm long, each of the lesions was excised. The defects were then closed using 4-0 nylon and 6-0 nylon, respectively. She tolerated the procedures well and was taken back to the nursing area in a stable condition. Job ID: [id number] DocumentID: [id number] Dictated Date: 12/22/2016 13:44:20 Manager Global Communications Date: 12/22/2016 22:47:06 Dictated By: RIKA WYNNE MD MTDD
== END 2016-12-22 15:18 | disposition home or self-care (01) ==
LOC: SDC 10:59
PROVIDERS: ATTEND Surgery
DX: L82.1 Other seborrheic keratosis (principal); D22.72 Melanocytic nevi of left lower limb, including hip; Z85.820 Personal history of malignant melanoma of skin; E03.9 Hypothyroidism, unspecified; Z95.1 Presence of aortocoronary bypass graft
CPT/HCPCS: 87081; 88305

== ENCOUNTER → 2017-02-01 | Outpatient (CLI) | payer MEDICARE, OTHER ==
[~2017-02-01] MED LIST changes: +CLOP75TA28 PO; +HYOS-20 PO; +LISI-556 PO; +METO-387 PO
--- NOTE | 2017-02-01 15:41 | Diagnostic Imaging Report ---
EXAMINATION: PET-CT TECHNIQUE: Serum glucose level at the time of the study is: 138 mg/dL. 12.8 mCi of FDG was administered intravenously followed by obtaining PET images with corresponding noncontrast CT scan images. The CT scan was performed for anatomic correlation and attenuation correction and was not performed according to the diagnostic protocol of the areas covered. The scan was performed from the whole body. INDICATION: Followup melanoma. COMPARISON: 08/10/2016 PET/CT. FINDINGS: Previous PET/CT of 08/10/2016 demonstrated a new area of increased FDG uptake in the medial aspect of the upper right thigh, and new area of activity also was in the left zygomaticomaxillary junction. There is symmetric FDG uptake in the brain. There is no definite mass seen in the left orbit on the associated localizer CT. On the superimposed PET/CT images, there is some activity that is probably from the brain projecting into the left orbit likely related to misregistration artifact. No significant FDG uptake is seen in the neck to suggest a neoplasm. The previously seen uptake in the adenoids has diminished to normal levels. In the thorax, physiologic uptake in the left ventricle is seen with mild degenerative-related activity along the shoulders seen. No suspicious hypermetabolic mass. In the abdomen and pelvis: There is expected excretion of the tracer in the urinary tract. There is focal intense area of uptake seen within the cecum. The localizer CT demonstrates no convincing associated mass. This could be physiologic or related to an inflammatory process rather than neoplasm related. In the lower extremities, there is no significant area of increased uptake seen at this time to suggest metastatic disease. Mild focus of increased activity noted along the left patellofemoral joint is likely arthritic related or posttraumatic. Previously seen areas of increased uptake along the junction of the right thigh and the perineum near the subcutaneous tissues and along the right adductor luis a muscle are not demonstrated on the current study. IMPRESSION: Focus of intense increased activity is seen in the cecum with no convincing associated mass seen on correlating CT images, likely physiologic or related to focal inflammation. No suspicious hypermetabolic mass is identified on this exam. Dictated by: Dictated on workstation # [id number]
== END ==
LOC: RAD 09:01
PROVIDERS: ATTEND Nurse Practitioner Adult Health
DX: C43.59 Malignant melanoma of other part of trunk (principal)
CPT/HCPCS: 78816

== ENCOUNTER 2017-02-03 10:28 | Outpatient (RCR) | payer MEDICARE, OTHER ==
[2016-12-07 10:59] LABS: BASOPHILS % (AUTO) 1 % (0-10); EOSINOPHILS # (AUTO) 0.1 10^3/uL (0.0-0.3); EOSINOPHILS % (AUTO) 3 % (0-10); LYMPHOCYTES # (AUTO) 0.6 X 10^3 (1.0-4.0); LYMPHOCYTES % (AUTO) 19 % (12-44); MEAN CORPUSCULAR HEMOGLOBIN 27 PG (25-34); MEAN CORPUSCULAR HGB CONC 32 G/DL (32-36); MEAN CORPUSCULAR VOLUME 84 FL (80-99); MEAN PLATELET VOLUME 9.7 FL (7.4-10.4); MONOCYTES # (AUTO) 0.4 X 10^3 (0.0-1.0); MONOCYTES % (AUTO) 12 % (0-12); NEUTROPHILS # (AUTO) 2.1 X 10^3 (1.8-7.8); NEUTROPHILS % (AUTO) 65 % (42-75); PLATELET COUNT 226 10^3/uL (130-400); RED BLOOD COUNT 4.47 10^6/uL (4.35-5.85); RED CELL DISTRIBUTION WIDTH 15.1 % (10.0-14.5); WHITE BLOOD COUNT 3.2 10^3/uL (4.3-11.0)
[2016-12-07 11:30] LABS: BILIRUBIN,TOTAL 0.4 MG/DL (0.1-1.0); CALCIUM 10.1 MG/DL (8.5-10.1); CREATININE SERUM 1.24 MG/DL (0.60-1.30); POTASSIUM 4.4 MMOL/L (3.6-5.0); TOTAL PROTEIN 7.2 G/DL (6.4-8.2)
[2017-01-05 10:23] LABS: BASOPHILS % (AUTO) 1 % (0-10); EOSINOPHILS # (AUTO) 0.2 10^3/uL (0.0-0.3); EOSINOPHILS % (AUTO) 4 % (0-10); LYMPHOCYTES % (AUTO) 18 % (12-44); MEAN CORPUSCULAR HEMOGLOBIN 27 PG (25-34); MEAN CORPUSCULAR HGB CONC 32 G/DL (32-36); MEAN CORPUSCULAR VOLUME 82 FL (80-99); MEAN PLATELET VOLUME 9.7 FL (7.4-10.4); MONOCYTES # (AUTO) 0.4 X 10^3 (0.0-1.0); MONOCYTES % (AUTO) 7 % (0-12); NEUTROPHILS # (AUTO) 3.8 X 10^3 (1.8-7.8); NEUTROPHILS % (AUTO) 70 % (42-75); PLATELET COUNT 291 10^3/uL (130-400); RED CELL DISTRIBUTION WIDTH 15.1 % (10.0-14.5); WHITE BLOOD COUNT 5.4 10^3/uL (4.3-11.0)
[2017-01-05 10:45] LABS: ALBUMIN 4.4 GM/DL (3.2-4.5); BILIRUBIN,TOTAL 0.5 MG/DL (0.1-1.0); CALCIUM 10.9 MG/DL (8.5-10.1); CREATININE SERUM 1.4 MG/DL (0.60-1.30); ICTERUS 0.5 (-100-1.9); POTASSIUM 4.6 MMOL/L (3.6-5.0); TOTAL PROTEIN 7.5 GM/DL (6.4-8.2)
[2017-01-05 11:23] LABS: MAGNESIUM 2.1 MG/DL (1.8-2.4)
[2017-01-12 11:59] LABS: CREATININE SERUM 1.46 MG/DL (0.60-1.30); ICTERUS 0.4 (-100-1.9); POTASSIUM 4.4 MMOL/L (3.6-5.0)
[2017-01-19 12:07] LABS: CALCIUM 10.6 MG/DL (8.5-10.1); CREATININE SERUM 1.31 MG/DL (0.60-1.30); POTASSIUM 5.1 MMOL/L (3.6-5.0)
[~2017-02-03 10:28] MED LIST changes: -CLOP75TA28 PO; -LISI-556 PO; -METO-387 PO
[2017-02-03 10:54] LABS: BASOPHILS % (AUTO) 1 % (0-10); EOSINOPHILS # (AUTO) 0.1 10^3/uL (0.0-0.3); EOSINOPHILS % (AUTO) 3 % (0-10); LYMPHOCYTES # (AUTO) 0.8 X 10^3 (1.0-4.0); LYMPHOCYTES % (AUTO) 17 % (12-44); MEAN CORPUSCULAR HEMOGLOBIN 27 PG (25-34); MEAN CORPUSCULAR HGB CONC 32 G/DL (32-36); MEAN CORPUSCULAR VOLUME 83 FL (80-99); MEAN PLATELET VOLUME 9.1 FL (7.4-10.4); MONOCYTES # (AUTO) 0.5 X 10^3 (0.0-1.0); MONOCYTES % (AUTO) 11 % (0-12); NEUTROPHILS # (AUTO) 3.1 X 10^3 (1.8-7.8); NEUTROPHILS % (AUTO) 69 % (42-75); PLATELET COUNT 301 10^3/uL (130-400); RED BLOOD COUNT 4.36 10^6/uL (4.35-5.85); RED CELL DISTRIBUTION WIDTH 15.3 % (10.0-14.5); WHITE BLOOD COUNT 4.5 10^3/uL (4.3-11.0)
[2017-02-03 11:22] LABS: BILIRUBIN,TOTAL 0.4 MG/DL (0.1-1.0); CALCIUM 10.1 MG/DL (8.5-10.1); CREATININE SERUM 1.26 MG/DL (0.60-1.30); POTASSIUM 4.7 MMOL/L (3.6-5.0); TOTAL PROTEIN 6.9 GM/DL (6.4-8.2)
== END 2017-03-07 | disposition home or self-care (01) ==
LOC: ONC 10:28
PROVIDERS: ATTEND Internal Medicine Hematology & Oncology
DX: C43.59 Malignant melanoma of other part of trunk (principal); C77.3 Secondary and unspecified malignant neoplasm of axilla and upper limb lymph nodes; C79.89 Secondary malignant neoplasm of other specified sites; Z85.3 Personal history of malignant neoplasm of breast; I25.10 Atherosclerotic heart disease of native coronary artery without angina pectoris; I12.9 Hypertensive chronic kidney disease with stage 1 through stage 4 chronic kidney disease, or unspecified chronic kidney disease; N18.3 Chronic kidney disease, stage 3 (moderate); E78.5 Hyperlipidemia, unspecified; R42 Dizziness and giddiness; E03.9 Hypothyroidism, unspecified; Z79.899 Other long term (current) drug therapy; Z92.21 Personal history of antineoplastic chemotherapy; Z92.3 Personal history of irradiation
CPT/HCPCS: 36415; 36591; 80048; 80053; 83615; 83735; 85025; 99213

== ENCOUNTER → 2017-03-10 | Outpatient (CLI) | payer MEDICARE, OTHER ==
[2017-03-10 11:11] LABS: THYROID STIMULATING HORMONE 1.2 UIU/ML (0.35-4.94)
== END ==
LOC: LAB 09:49
PROVIDERS: ATTEND Internal Medicine
DX: E78.5 Hyperlipidemia, unspecified (principal)
CPT/HCPCS: 80061; 84443

== ENCOUNTER 2017-04-07 09:11 | Outpatient (RCR) | payer MEDICARE, OTHER ==
[2017-03-10 10:20] LABS: BASOPHILS % (AUTO) 1 % (0-10); EOSINOPHILS # (AUTO) 0.1 10^3/uL (0.0-0.3); EOSINOPHILS % (AUTO) 4 % (0-10); LYMPHOCYTES # (AUTO) 0.7 X 10^3 (1.0-4.0); LYMPHOCYTES % (AUTO) 19 % (12-44); MEAN CORPUSCULAR HEMOGLOBIN 27 PG (25-34); MEAN CORPUSCULAR HGB CONC 32 G/DL (32-36); MEAN CORPUSCULAR VOLUME 84 FL (80-99); MONOCYTES # (AUTO) 0.4 X 10^3 (0.0-1.0); MONOCYTES % (AUTO) 12 % (0-12); NEUTROPHILS # (AUTO) 2.4 X 10^3 (1.8-7.8); NEUTROPHILS % (AUTO) 64 % (42-75); PLATELET COUNT 337 10^3/uL (130-400); RED BLOOD COUNT 4.21 10^6/uL (4.35-5.85); RED CELL DISTRIBUTION WIDTH 14.6 % (10.0-14.5); WHITE BLOOD COUNT 3.8 10^3/uL (4.3-11.0)
[2017-03-10 10:50] LABS: BILIRUBIN,TOTAL 0.5 MG/DL (0.1-1.0); CALCIUM 10.3 MG/DL (8.5-10.1); CREATININE SERUM 1.15 MG/DL (0.60-1.30); POTASSIUM 4.5 MMOL/L (3.6-5.0); TOTAL PROTEIN 6.8 GM/DL (6.4-8.2)
[2017-04-07 09:28] LABS: BASOPHILS % (AUTO) 1 % (0-10); EOSINOPHILS # (AUTO) 0.1 10^3/uL (0.0-0.3); EOSINOPHILS % (AUTO) 3 % (0-10); LYMPHOCYTES # (AUTO) 0.9 X 10^3 (1.0-4.0); LYMPHOCYTES % (AUTO) 20 % (12-44); MEAN CORPUSCULAR HEMOGLOBIN 27 PG (25-34); MEAN CORPUSCULAR HGB CONC 32 G/DL (32-36); MEAN CORPUSCULAR VOLUME 85 FL (80-99); MEAN PLATELET VOLUME 9.5 FL (7.4-10.4); MONOCYTES # (AUTO) 0.5 X 10^3 (0.0-1.0); MONOCYTES % (AUTO) 11 % (0-12); NEUTROPHILS # (AUTO) 2.7 X 10^3 (1.8-7.8); NEUTROPHILS % (AUTO) 64 % (42-75); PLATELET COUNT 312 10^3/uL (130-400); RED BLOOD COUNT 4.23 10^6/uL (4.35-5.85); RED CELL DISTRIBUTION WIDTH 14.1 % (10.0-14.5); WHITE BLOOD COUNT 4.2 10^3/uL (4.3-11.0)
[2017-04-07 10:10] LABS: ALBUMIN 4.2 GM/DL (3.2-4.5); BILIRUBIN,TOTAL 0.4 MG/DL (0.1-1.0); CALCIUM 10.1 MG/DL (8.5-10.1); CREATININE SERUM 1.21 MG/DL (0.60-1.30); MAGNESIUM 2.1 MG/DL (1.8-2.4); POTASSIUM 4.6 MMOL/L (3.6-5.0); TOTAL PROTEIN 7.3 GM/DL (6.4-8.2)
== END 2017-04-16 | disposition home or self-care (01) ==
LOC: ONC 09:11
PROVIDERS: ATTEND Internal Medicine Hematology & Oncology
DX: C77.3 Secondary and unspecified malignant neoplasm of axilla and upper limb lymph nodes; Z92.21 Personal history of antineoplastic chemotherapy; N18.3 Chronic kidney disease, stage 3 (moderate); I12.9 Hypertensive chronic kidney disease with stage 1 through stage 4 chronic kidney disease, or unspecified chronic kidney disease; C79.89 Secondary malignant neoplasm of other specified sites; Z85.3 Personal history of malignant neoplasm of breast; E78.5 Hyperlipidemia, unspecified; Z92.3 Personal history of irradiation; R42 Dizziness and giddiness; I25.10 Atherosclerotic heart disease of native coronary artery without angina pectoris; Z79.899 Other long term (current) drug therapy; C43.59 Malignant melanoma of other part of trunk; E03.9 Hypothyroidism, unspecified
CPT/HCPCS: 36591; 80053; 83615; 83735; 85025; 93005; 99213

== ENCOUNTER → 2017-06-07 | Outpatient (CLI) | payer MEDICARE, OTHER ==
[~2017-06-07] MED LIST changes: +CLOP75TA28 PO; +LISI-556 PO; +METO-387 PO
== END ==
LOC: CARD 11:51
PROVIDERS: ATTEND Internal Medicine Cardiovascular Disease
DX: I10 Essential (primary) hypertension (principal); I25.10 Atherosclerotic heart disease of native coronary artery without angina pectoris; I65.23 Occlusion and stenosis of bilateral carotid arteries; E78.4 Other hyperlipidemia; R53.1 Weakness; R06.09 Other forms of dyspnea
CPT/HCPCS: 93306

== ENCOUNTER 2017-06-08 11:21 | Outpatient (RCR) | payer MEDICARE, OTHER ==
[2017-05-12 11:11] LABS: BASOPHILS % (AUTO) 1 % (0-10); EOSINOPHILS # (AUTO) 0.2 10^3/uL (0.0-0.3); EOSINOPHILS % (AUTO) 4 % (0-10); LYMPHOCYTES # (AUTO) 0.8 X 10^3 (1.0-4.0); LYMPHOCYTES % (AUTO) 19 % (12-44); MEAN CORPUSCULAR HEMOGLOBIN 28 PG (25-34); MEAN CORPUSCULAR HGB CONC 33 G/DL (32-36); MEAN CORPUSCULAR VOLUME 85 FL (80-99); MEAN PLATELET VOLUME 9.2 FL (7.4-10.4); MONOCYTES # (AUTO) 0.5 X 10^3 (0.0-1.0); MONOCYTES % (AUTO) 11 % (0-12); NEUTROPHILS # (AUTO) 2.8 X 10^3 (1.8-7.8); NEUTROPHILS % (AUTO) 66 % (42-75); PLATELET COUNT 275 10^3/uL (130-400); RED CELL DISTRIBUTION WIDTH 13.4 % (10.0-14.5); WHITE BLOOD COUNT 4.2 10^3/uL (4.3-11.0)
[2017-05-12 11:27] LABS: ALBUMIN 4.1 GM/DL (3.2-4.5); BILIRUBIN,TOTAL 0.5 MG/DL (0.1-1.0); CALCIUM 10.4 MG/DL (8.5-10.1); CREATININE SERUM 1.34 MG/DL (0.60-1.30); POTASSIUM 4.3 MMOL/L (3.6-5.0); TOTAL PROTEIN 7.2 GM/DL (6.4-8.2)
[2017-06-08 11:46] LABS: BASOPHILS % (AUTO) 1 % (0-10); EOSINOPHILS # (AUTO) 0.3 10^3/uL (0.0-0.3); EOSINOPHILS % (AUTO) 6 % (0-10); LYMPHOCYTES # (AUTO) 0.8 X 10^3 (1.0-4.0); LYMPHOCYTES % (AUTO) 16 % (12-44); MEAN CORPUSCULAR HEMOGLOBIN 28 PG (25-34); MEAN CORPUSCULAR HGB CONC 32 G/DL (32-36); MEAN CORPUSCULAR VOLUME 86 FL (80-99); MEAN PLATELET VOLUME 9.5 FL (7.4-10.4); MONOCYTES # (AUTO) 0.6 X 10^3 (0.0-1.0); MONOCYTES % (AUTO) 11 % (0-12); NEUTROPHILS # (AUTO) 3.2 X 10^3 (1.8-7.8); NEUTROPHILS % (AUTO) 66 % (42-75); PLATELET COUNT 289 10^3/uL (130-400); RED BLOOD COUNT 4.16 10^6/uL (4.35-5.85); RED CELL DISTRIBUTION WIDTH 13.8 % (10.0-14.5); WHITE BLOOD COUNT 4.9 10^3/uL (4.3-11.0)
[2017-06-08 12:07] LABS: ALBUMIN 4.1 GM/DL (3.2-4.5); BILIRUBIN,TOTAL 0.6 MG/DL (0.1-1.0); CALCIUM 10.5 MG/DL (8.5-10.1); CREATININE SERUM 1.54 MG/DL (0.60-1.30); POTASSIUM 5.5 MMOL/L (3.6-5.0); TOTAL PROTEIN 7.1 GM/DL (6.4-8.2)
== END 2017-07-01 15:19 | disposition home or self-care (01) ==
LOC: ONC 11:21
PROVIDERS: ATTEND Internal Medicine Hematology & Oncology
DX: C43.59 Malignant melanoma of other part of trunk (principal); C77.3 Secondary and unspecified malignant neoplasm of axilla and upper limb lymph nodes; C79.89 Secondary malignant neoplasm of other specified sites; Z85.3 Personal history of malignant neoplasm of breast; I25.10 Atherosclerotic heart disease of native coronary artery without angina pectoris; I12.9 Hypertensive chronic kidney disease with stage 1 through stage 4 chronic kidney disease, or unspecified chronic kidney disease; N18.3 Chronic kidney disease, stage 3 (moderate); E78.5 Hyperlipidemia, unspecified; R42 Dizziness and giddiness; E03.9 Hypothyroidism, unspecified; Z79.899 Other long term (current) drug therapy; Z92.21 Personal history of antineoplastic chemotherapy; Z92.3 Personal history of irradiation
CPT/HCPCS: 36415; 36591; 80053; 83615; 85025; 99213

== ENCOUNTER → 2017-07-07 | Outpatient (CLI) | payer MEDICARE, OTHER ==
--- NOTE | 2017-07-07 17:55 | Diagnostic Imaging Report ---
PROCEDURE: MR imaging of the brain without contrast. TECHNIQUE: Multiplanar, multisequence MR imaging of the brain was performed without contrast. INDICATION: History of metastatic melanoma, now with decreased balance. COMPARISON: Exam compared to 11/19/2016. FINDINGS: There are no findings of acute or subacute hemorrhage, and no mass effect identified. No signal abnormalities to suggest a melanotic lesion. Old lacunar infarcts and chronic white matter small vessel sequelae are stable. Mild senescent atrophy is stable. There are no foci of abnormal diffusion restriction. There are no findings of an acute or subacute ischemic infarct. There is no evidence for focal nor generalized cerebral edema. There is no cerebellopontine angle mass or mass effect. The semicircular canals are unremarkable. Seventh and eighth cranial nerve complex appeared unremarkable. There are no abnormal extra-axial fluid collections. There is no hemorrhage. IMPRESSION: Old ischemic foci and chronic white matter disease stable. No cerebellopontine angle mass or mass effect. No acute ischemic insult and no mass, hemorrhage, or edema. Dictated by: Dictated on workstation # [id number]
== END ==
LOC: RAD 16:05
PROVIDERS: ATTEND Nurse Practitioner Adult Health
DX: G93.89 Other specified disorders of brain (principal); R42 Dizziness and giddiness; C43.59 Malignant melanoma of other part of trunk
CPT/HCPCS: 70551

== ENCOUNTER → 2017-07-12 | Outpatient (CLI) | payer MEDICARE, OTHER ==
--- NOTE | 2017-07-12 12:28 | Diagnostic Imaging Report ---
EXAMINATION: PET-CT TECHNIQUE: Serum glucose level at the time of the study is: 120 mg/dL. 13 mCi of FDG was administered intravenously followed by obtaining PET images with corresponding noncontrast CT scan images. The CT scan was performed for anatomic correlation and attenuation correction and was not performed according to the diagnostic protocol of the areas covered. The scan was performed from the head to mid thighs. INDICATION: Melanoma. COMPARISON: 02/01/17. FINDINGS: There is symmetric FDG uptake in the brain. There is no significant hypermetabolism seen in the neck. No significant hypermetabolism is seen in the chest. In the abdomen and pelvis, there is urinary tract excretion of the tracer with no suspicious hypermetabolic mass identified. The previously seen hypermetabolism in the cecum area is not present at this time. In the lower extremities, there is a mild focus of hypermetabolism with maximum SUV of 2.3, only minimally higher than baseline FDG uptake levels projecting at the level of the left knee in the patellofemoral joint region. This is perhaps related to mild inflammatory arthritis component with no definite underlying mass seen. No significant hypermetabolism is seen otherwise in the legs. IMPRESSION: No suspicious hypermetabolic mass is seen. Dictated by: Dictated on workstation # [id number]
== END ==
LOC: RAD 08:57
PROVIDERS: ATTEND Nurse Practitioner Adult Health
DX: C43.9 Malignant melanoma of skin, unspecified (principal)

== ENCOUNTER 2017-09-15 09:09 | Outpatient (RCR) | payer MEDICARE, OTHER ==
[2017-07-05 13:51] LABS: BASOPHILS # (AUTO) 0.1 10^3/uL (0.0-0.1); BASOPHILS % (AUTO) 2 % (0-10); EOSINOPHILS # (AUTO) 0.2 10^3/uL (0.0-0.3); EOSINOPHILS % (AUTO) 4 % (0-10); HEMATOCRIT 39 % (35-52); HEMOGLOBIN 12.7 G/DL (11.5-16.0); LYMPHOCYTES # (AUTO) 0.7 X 10^3 (1.0-4.0); LYMPHOCYTES % (AUTO) 14 % (12-44); MEAN CORPUSCULAR HEMOGLOBIN 27 PG (25-34); MEAN CORPUSCULAR HGB CONC 32 G/DL (32-36); MEAN CORPUSCULAR VOLUME 83 FL (80-99); MEAN PLATELET VOLUME 9.6 FL (7.4-10.4); MONOCYTES # (AUTO) 0.6 X 10^3 (0.0-1.0); MONOCYTES % (AUTO) 12 % (0-12); NEUTROPHILS # (AUTO) 3.3 X 10^3 (1.8-7.8); NEUTROPHILS % (AUTO) 69 % (42-75); PLATELET COUNT 412 10^3/uL (130-400); RED BLOOD COUNT 4.72 10^6/uL (4.35-5.85); WHITE BLOOD COUNT 4.8 10^3/uL (4.3-11.0)
[2017-07-05 14:10] LABS: ALBUMIN 4.5 GM/DL (3.2-4.5); BILIRUBIN,TOTAL 0.5 MG/DL (0.1-1.0); CALCIUM 11.9 MG/DL (8.5-10.1); CREATININE SERUM 1.73 MG/DL (0.60-1.30); MAGNESIUM 2.3 MG/DL (1.8-2.4); TOTAL PROTEIN 7.9 GM/DL (6.4-8.2)
[2017-07-07 11:50] LABS: CALCIUM 10.5 MG/DL (8.5-10.1); CREATININE SERUM 1.63 MG/DL (0.60-1.30); POTASSIUM 4.3 MMOL/L (3.6-5.0)
[2017-07-21 09:17] LABS: BASOPHILS # (AUTO) 0.1 10^3/uL (0.0-0.1); BASOPHILS % (AUTO) 2 % (0-10); EOSINOPHILS # (AUTO) 0.2 10^3/uL (0.0-0.3); EOSINOPHILS % (AUTO) 5 % (0-10); HEMATOCRIT 34 % (35-52); HEMOGLOBIN 12.1 G/DL (11.5-16.0); LYMPHOCYTES # (AUTO) 0.8 X 10^3 (1.0-4.0); LYMPHOCYTES % (AUTO) 18 % (12-44); MEAN CORPUSCULAR HEMOGLOBIN 27 PG (25-34); MEAN CORPUSCULAR HGB CONC 35 G/DL (32-36); MEAN CORPUSCULAR VOLUME 76 FL (80-99); MEAN PLATELET VOLUME 9.3 FL (7.4-10.4); MONOCYTES # (AUTO) 0.5 X 10^3 (0.0-1.0); MONOCYTES % (AUTO) 13 % (0-12); NEUTROPHILS # (AUTO) 2.7 X 10^3 (1.8-7.8); NEUTROPHILS % (AUTO) 63 % (42-75); PLATELET COUNT 321 10^3/uL (130-400); RED BLOOD COUNT 4.52 10^6/uL (4.35-5.85); RED CELL DISTRIBUTION WIDTH 14.3 % (10.0-14.5); WHITE BLOOD COUNT 4.2 10^3/uL (4.3-11.0)
[2017-07-21 09:42] LABS: ALBUMIN 4.3 GM/DL (3.2-4.5); BILIRUBIN,TOTAL 0.5 MG/DL (0.1-1.0); CALCIUM 10.9 MG/DL (8.5-10.1); CREATININE SERUM 1.58 MG/DL (0.60-1.30); POTASSIUM 4.8 MMOL/L (3.6-5.0); TOTAL PROTEIN 7.7 GM/DL (6.4-8.2)
[2017-08-04 12:00] LABS: ALBUMIN 3.9 GM/DL (3.2-4.5); BILIRUBIN,TOTAL 0.5 MG/DL (0.1-1.0); CALCIUM 10.3 MG/DL (8.5-10.1); CREATININE SERUM 1.36 MG/DL (0.60-1.30); POTASSIUM 4.2 MMOL/L (3.6-5.0); TOTAL PROTEIN 6.8 GM/DL (6.4-8.2)
[2017-08-17 09:41] LABS: BASOPHILS # (AUTO) 0.1 10^3/uL (0.0-0.1); BASOPHILS % (AUTO) 2 % (0-10); EOSINOPHILS # (AUTO) 0.2 10^3/uL (0.0-0.3); EOSINOPHILS % (AUTO) 4 % (0-10); HEMATOCRIT 37 % (35-52); HEMOGLOBIN 11.9 G/DL (11.5-16.0); LYMPHOCYTES # (AUTO) 0.6 X 10^3 (1.0-4.0); LYMPHOCYTES % (AUTO) 15 % (12-44); MEAN CORPUSCULAR HEMOGLOBIN 27 PG (25-34); MEAN CORPUSCULAR HGB CONC 33 G/DL (32-36); MEAN CORPUSCULAR VOLUME 82 FL (80-99); MEAN PLATELET VOLUME 9.4 FL (7.4-10.4); MONOCYTES # (AUTO) 0.5 X 10^3 (0.0-1.0); MONOCYTES % (AUTO) 12 % (0-12); NEUTROPHILS # (AUTO) 2.6 X 10^3 (1.8-7.8); NEUTROPHILS % (AUTO) 67 % (42-75); PLATELET COUNT 331 10^3/uL (130-400); RED BLOOD COUNT 4.45 10^6/uL (4.35-5.85); RED CELL DISTRIBUTION WIDTH 14.1 % (10.0-14.5); WHITE BLOOD COUNT 3.9 10^3/uL (4.3-11.0)
[2017-08-17 10:00] LABS: ALBUMIN 4.2 GM/DL (3.2-4.5); BILIRUBIN,TOTAL 0.7 MG/DL (0.1-1.0); CALCIUM 10.6 MG/DL (8.5-10.1); CREATININE SERUM 1.62 MG/DL (0.60-1.30); POTASSIUM 4.6 MMOL/L (3.6-5.0); TOTAL PROTEIN 7.7 GM/DL (6.4-8.2)
[~2017-09-15 09:09] MED LIST changes: +ACHD5005 PO; -HYDR-3812 PO; +NS IV 1000 ML (CANCER CTR) 1,000 ML ONE; -VEMU240T PO; +[UNRECOGNIZED DRUG - CODE] PO
[2017-09-15 09:27] LABS: BASOPHILS % (AUTO) 1 % (0-10); EOSINOPHILS # (AUTO) 0.1 10^3/uL (0.0-0.3); EOSINOPHILS % (AUTO) 4 % (0-10); HEMATOCRIT 35 % (35-52); HEMOGLOBIN 11.3 G/DL (11.5-16.0); LYMPHOCYTES # (AUTO) 0.6 X 10^3 (1.0-4.0); LYMPHOCYTES % (AUTO) 16 % (12-44); MEAN CORPUSCULAR HEMOGLOBIN 27 PG (25-34); MEAN CORPUSCULAR HGB CONC 33 G/DL (32-36); MEAN CORPUSCULAR VOLUME 82 FL (80-99); MEAN PLATELET VOLUME 9.3 FL (7.4-10.4); MONOCYTES # (AUTO) 0.4 X 10^3 (0.0-1.0); MONOCYTES % (AUTO) 11 % (0-12); NEUTROPHILS # (AUTO) 2.6 X 10^3 (1.8-7.8); NEUTROPHILS % (AUTO) 68 % (42-75); PLATELET COUNT 320 10^3/uL (130-400); RED BLOOD COUNT 4.26 10^6/uL (4.35-5.85); RED CELL DISTRIBUTION WIDTH 14.3 % (10.0-14.5); WHITE BLOOD COUNT 3.8 10^3/uL (4.3-11.0)
[2017-09-15 09:49] LABS: ALBUMIN 4.1 GM/DL (3.2-4.5); BILIRUBIN,TOTAL 0.5 MG/DL (0.1-1.0); CALCIUM 10.8 MG/DL (8.5-10.1); CREATININE SERUM 1.46 MG/DL (0.60-1.30); POTASSIUM 5.1 MMOL/L (3.6-5.0); TOTAL PROTEIN 7.2 GM/DL (6.4-8.2)
== END 2017-10-03 | disposition home or self-care (01) ==
LOC: ONC 09:09
PROVIDERS: ATTEND Internal Medicine Hematology & Oncology
DX: C43.59 Malignant melanoma of other part of trunk (principal); C77.3 Secondary and unspecified malignant neoplasm of axilla and upper limb lymph nodes; C79.89 Secondary malignant neoplasm of other specified sites; Z85.3 Personal history of malignant neoplasm of breast; I25.10 Atherosclerotic heart disease of native coronary artery without angina pectoris; I12.9 Hypertensive chronic kidney disease with stage 1 through stage 4 chronic kidney disease, or unspecified chronic kidney disease; N18.3 Chronic kidney disease, stage 3 (moderate); E78.5 Hyperlipidemia, unspecified; R42 Dizziness and giddiness; E03.9 Hypothyroidism, unspecified; Z79.899 Other long term (current) drug therapy; Z92.21 Personal history of antineoplastic chemotherapy; Z92.3 Personal history of irradiation
CPT/HCPCS: 36415; 36591; 80048; 80053; 83615; 83735; 85025; 93005; 96360; 96361; 99213

== ENCOUNTER → 2017-09-23 | Outpatient (CLI) | payer MEDICARE, OTHER ==
[~2017-09-23] MED LIST changes: -NS IV 1000 ML (CANCER CTR) 1,000 ML ONE
--- NOTE | 2017-09-23 14:12 | Diagnostic Imaging Report ---
PROCEDURE: CT chest, abdomen, and pelvis without contrast. TECHNIQUE: Multiple contiguous axial images were obtained through the chest, abdomen, and pelvis without the use of intravenous contrast. INDICATION: History of melanoma. Surveillance imaging. COMPARISON: CT abdomen of 04/16/[address] chest, abdomen, and pelvis of 06/27/2015. CT CHEST FINDINGS: No supraclavicular or axillary lymphadenopathy. Left axillary lymph node dissection is again seen. Since CT chest of 2014, the left axillary fluid collection has resolved. No mediastinal, hilar or juxtaphrenic lymphadenopathy. Heart is mildly enlarged and without pericardial effusion. Status post CABG. Normal caliber thoracic aorta with scattered atherosclerotic plaques. No pleural effusion or pneumothorax. No endoluminal nodule in the trachea. No pulmonary mass consolidation. There is a 5 mm left upper lobe pulmonary nodule that is new since prior CT of 2014. No additional pulmonary nodules. IMPRESSION: 1. A left upper lobe 5 mm pulmonary nodule is new since chest CT of 07/07/2015. This could be infectious/inflammatory etiology, though neoplasm could also have this appearance. Short-term followup imaging with CT chest in three months is advised. 2. No intrathoracic lymphadenopathy. CT ABDOMEN AND PELVIS FINDINGS: No free intraperitoneal air or fluid. Assessment of the solid abdominal viscera is limited without IV contrast. Allowing for this, the unenhanced liver and spleen are normal. Status post cholecystectomy. No biliary duct dilatation. Unenhanced pancreas is grossly normal. No adrenal mass. No renal or ureteral calculi. No obstructive uropathy. Urinary bladder is unremarkable. Uterus is normal in appearance for patient's age. No adnexal mass. There is no bowel obstruction. The stomach is normally seen with air and food debris. Normal appendix. No enlarged abdominal or pelvic lymph nodes by size criteria. There are a few subcentimeter celiac axis lymph nodes that are stable compared to CT abdomen and pelvis of 04/16/2016. No concerning focal osseous lesions. IMPRESSION: 1. No change to indicate intra-abdominal metastases when compared to CT abdomen and pelvis from 04/16/2016. 2. On today's examination, there is no splenomegaly. Dictated by: Dictated on workstation # [id number]
--- NOTE | 2017-09-23 16:19 | Diagnostic Imaging Report ---
INDICATION: Palpable lump in the left axilla. Patient has history of metastatic melanoma in 2015. TECHNIQUE: The patient was administered 26.1 mCi of technetium 99m MDP intravenously and whole-body imaging was performed after a three-hour delay. COMPARISON: Comparison is made with prior bone scan from 07/07/2015. FINDINGS: There is normal uptake of activity by the axial and appendicular skeleton. There is uptake of activity by the kidneys with excretion into the urinary bladder. There is a focus of mild uptake in the right foot, likely on a degenerative basis. No other abnormal foci of tracer accumulation is seen. IMPRESSION: Stable whole-body bone scan. There are no scintigraphic findings to suggest osseous metastatic disease. Dictated on workstation # [id number]
== END ==
LOC: RAD 11:40
PROVIDERS: ATTEND Nurse Practitioner Adult Health
DX: R91.1 Solitary pulmonary nodule (principal); Z85.820 Personal history of malignant melanoma of skin
CPT/HCPCS: 71250; 74176; 78306

== ENCOUNTER → 2017-11-17 | Outpatient (CLI) | payer MEDICARE, OTHER ==
[~2017-11-17] MED LIST changes: +ACET-2650 PO; +ASPI-808 PO; +CLON0.5T3 PO; +CLOP75TA69 PO; +POLY17PO6 PO; +PRED5DRO17 OU
== END ==
LOC: LAB 09:25
PROVIDERS: ATTEND Internal Medicine
DX: E03.9 Hypothyroidism, unspecified (principal); Z79.899 Other long term (current) drug therapy
CPT/HCPCS: 36415; 84443

== ENCOUNTER → 2017-12-21 | Outpatient (CLI) | payer MEDICARE, OTHER ==
--- NOTE | 2017-12-21 12:38 | Diagnostic Imaging Report ---
PROCEDURE: CT head without contrast. TECHNIQUE: Multiple contiguous axial images were obtained through the brain without the use of intravenous contrast. INDICATION: Dizziness, history of melanoma. FINDINGS: There is no mass, shift of the midline, or hemorrhage to suggest an acute intracranial abnormality. The ventricles are somewhat prominent but no different in size when compared to the prior exam of 02/09/2016. The senescent changes seen on the prior exam including cortical atrophy and periventricular encephalomalacia are again evident and no different. Both middle cerebral arteries do appear somewhat dense. The bone windows show no sign of a fracture or of a destructive lesion. The orbits are symmetrical and within normal limits. The sinuses are generally clear. IMPRESSION: 1. There is no evidence for an acute intracranial abnormality. 2. If clinical concern regarding an underlying abnormality persists, then MRI would be recommended for further study. Dictated by: Dictated on workstation # [id number]
== END ==
LOC: RAD 12:07
PROVIDERS: ATTEND Nurse Practitioner Adult Health
DX: C77.3 Secondary and unspecified malignant neoplasm of axilla and upper limb lymph nodes (principal); Z85.820 Personal history of malignant melanoma of skin
CPT/HCPCS: 70450

== ENCOUNTER 2018-01-11 14:50 | Outpatient (RCR) | payer MEDICARE, OTHER ==
[2017-10-20 13:47] LABS: BASOPHILS % (AUTO) 1 % (0-10); EOSINOPHILS # (AUTO) 0.2 10^3/uL (0.0-0.3); EOSINOPHILS % (AUTO) 5 % (0-10); HEMATOCRIT 35 % (35-52); HEMOGLOBIN 11.2 G/DL (11.5-16.0); LYMPHOCYTES # (AUTO) 0.8 X 10^3 (1.0-4.0); LYMPHOCYTES % (AUTO) 16 % (12-44); MEAN CORPUSCULAR HEMOGLOBIN 26 PG (25-34); MEAN CORPUSCULAR HGB CONC 32 G/DL (32-36); MEAN CORPUSCULAR VOLUME 81 FL (80-99); MEAN PLATELET VOLUME 9.6 FL (7.4-10.4); MONOCYTES # (AUTO) 0.6 X 10^3 (0.0-1.0); MONOCYTES % (AUTO) 12 % (0-12); NEUTROPHILS # (AUTO) 3.3 X 10^3 (1.8-7.8); NEUTROPHILS % (AUTO) 66 % (42-75); PLATELET COUNT 305 10^3/uL (130-400); RED BLOOD COUNT 4.32 10^6/uL (4.35-5.85); RED CELL DISTRIBUTION WIDTH 14.2 % (10.0-14.5)
[2017-10-20 14:06] LABS: ALBUMIN 4.2 GM/DL (3.2-4.5); BILIRUBIN,TOTAL 0.5 MG/DL (0.1-1.0); CALCIUM 10.1 MG/DL (8.5-10.1); CREATININE SERUM 1.58 MG/DL (0.60-1.30); POTASSIUM 4.5 MMOL/L (3.6-5.0); TOTAL PROTEIN 7.2 GM/DL (6.4-8.2)
[2017-11-17 09:44] LABS: BASOPHILS % (AUTO) 1 % (0-10); EOSINOPHILS # (AUTO) 0.3 10^3/uL (0.0-0.3); EOSINOPHILS % (AUTO) 6 % (0-10); HEMATOCRIT 37 % (35-52); HEMOGLOBIN 11.6 G/DL (11.5-16.0); LYMPHOCYTES # (AUTO) 0.7 X 10^3 (1.0-4.0); LYMPHOCYTES % (AUTO) 13 % (12-44); MEAN CORPUSCULAR HEMOGLOBIN 25 PG (25-34); MEAN CORPUSCULAR HGB CONC 32 G/DL (32-36); MEAN CORPUSCULAR VOLUME 79 FL (80-99); MEAN PLATELET VOLUME 9.6 FL (7.4-10.4); MONOCYTES # (AUTO) 0.4 X 10^3 (0.0-1.0); MONOCYTES % (AUTO) 9 % (0-12); NEUTROPHILS # (AUTO) 3.6 X 10^3 (1.8-7.8); NEUTROPHILS % (AUTO) 72 % (42-75); PLATELET COUNT 337 10^3/uL (130-400); RED BLOOD COUNT 4.64 10^6/uL (4.35-5.85); RED CELL DISTRIBUTION WIDTH 14.4 % (10.0-14.5)
[2017-11-17 10:02] LABS: ALBUMIN 4.4 GM/DL (3.2-4.5); BILIRUBIN,TOTAL 0.5 MG/DL (0.1-1.0); CALCIUM 10.5 MG/DL (8.5-10.1); CREATININE SERUM 1.4 MG/DL (0.60-1.30); POTASSIUM 4.2 MMOL/L (3.6-5.0); TOTAL PROTEIN 7.5 GM/DL (6.4-8.2)
[2017-12-15 11:07] LABS: BASOPHILS % (AUTO) 1 % (0-10); EOSINOPHILS # (AUTO) 0.2 10^3/uL (0.0-0.3); EOSINOPHILS % (AUTO) 4 % (0-10); HEMATOCRIT 35 % (35-52); HEMOGLOBIN 11.3 G/DL (11.5-16.0); LYMPHOCYTES # (AUTO) 0.6 X 10^3 (1.0-4.0); LYMPHOCYTES % (AUTO) 12 % (12-44); MEAN CORPUSCULAR HEMOGLOBIN 26 PG (25-34); MEAN CORPUSCULAR HGB CONC 33 G/DL (32-36); MEAN CORPUSCULAR VOLUME 78 FL (80-99); MEAN PLATELET VOLUME 9.4 FL (7.4-10.4); MONOCYTES # (AUTO) 0.3 X 10^3 (0.0-1.0); MONOCYTES % (AUTO) 5 % (0-12); NEUTROPHILS % (AUTO) 79 % (42-75); PLATELET COUNT 341 10^3/uL (130-400); RED BLOOD COUNT 4.43 10^6/uL (4.35-5.85); WHITE BLOOD COUNT 5.1 10^3/uL (4.3-11.0)
[2017-12-15 11:25] LABS: ALBUMIN 4.2 GM/DL (3.2-4.5); BILIRUBIN,TOTAL 0.3 MG/DL (0.1-1.0); CALCIUM 10.7 MG/DL (8.5-10.1); CREATININE SERUM 1.38 MG/DL (0.60-1.30); POTASSIUM 4.8 MMOL/L (3.6-5.0); TOTAL PROTEIN 7.3 GM/DL (6.4-8.2)
[~2018-01-11 14:50] MED LIST changes: +CLON0.5T13 PO; -CLON0.5T3 PO
[2018-01-11 15:06] LABS: BASOPHILS % (AUTO) 1 % (0-10); EOSINOPHILS # (AUTO) 0.1 10^3/uL (0.0-0.3); EOSINOPHILS % (AUTO) 2 % (0-10); HEMATOCRIT 35 % (35-52); HEMOGLOBIN 11.6 G/DL (11.5-16.0); LYMPHOCYTES # (AUTO) 0.9 X 10^3 (1.0-4.0); LYMPHOCYTES % (AUTO) 15 % (12-44); MEAN CORPUSCULAR HEMOGLOBIN 25 PG (25-34); MEAN CORPUSCULAR HGB CONC 33 G/DL (32-36); MEAN CORPUSCULAR VOLUME 77 FL (80-99); MEAN PLATELET VOLUME 9.2 FL (7.4-10.4); MONOCYTES # (AUTO) 0.6 X 10^3 (0.0-1.0); MONOCYTES % (AUTO) 10 % (0-12); NEUTROPHILS # (AUTO) 4.1 X 10^3 (1.8-7.8); NEUTROPHILS % (AUTO) 72 % (42-75); PLATELET COUNT 336 10^3/uL (130-400); RED BLOOD COUNT 4.59 10^6/uL (4.35-5.85); RED CELL DISTRIBUTION WIDTH 15.4 % (10.0-14.5); WHITE BLOOD COUNT 5.8 10^3/uL (4.3-11.0)
[2018-01-11 15:28] LABS: ALBUMIN 4.5 GM/DL (3.2-4.5); BILIRUBIN,TOTAL 0.4 MG/DL (0.1-1.0); CALCIUM 10.3 MG/DL (8.5-10.1); CREATININE SERUM 1.32 MG/DL (0.60-1.30); POTASSIUM 5.2 MMOL/L (3.6-5.0); TOTAL PROTEIN 7.4 GM/DL (6.4-8.2)
== END 2018-01-18 | disposition home or self-care (01) ==
LOC: ONC 14:50
PROVIDERS: ATTEND Internal Medicine Hematology & Oncology
DX: C43.59 Malignant melanoma of other part of trunk (principal); C77.3 Secondary and unspecified malignant neoplasm of axilla and upper limb lymph nodes; C79.89 Secondary malignant neoplasm of other specified sites; Z85.3 Personal history of malignant neoplasm of breast; I25.10 Atherosclerotic heart disease of native coronary artery without angina pectoris; I12.9 Hypertensive chronic kidney disease with stage 1 through stage 4 chronic kidney disease, or unspecified chronic kidney disease; N18.3 Chronic kidney disease, stage 3 (moderate); E78.5 Hyperlipidemia, unspecified; R42 Dizziness and giddiness; E03.9 Hypothyroidism, unspecified; Z79.899 Other long term (current) drug therapy; Z92.21 Personal history of antineoplastic chemotherapy; Z92.3 Personal history of irradiation
CPT/HCPCS: 36415; 36591; 80053; 83615; 84443; 85025; 99213

== ENCOUNTER → 2018-02-09 | Outpatient (CLI) | payer MEDICARE, OTHER ==
[2018-02-09 09:15] LABS: HEMOGLOBIN 12.4 G/DL (11.5-16.0); MEAN PLATELET VOLUME 9.5 FL (7.4-10.4); RED BLOOD COUNT 4.78 10^6/uL (4.35-5.85); RED CELL DISTRIBUTION WIDTH 16.2 % (10.0-14.5); WHITE BLOOD COUNT 5.3 10^3/uL (4.3-11.0)
[2018-02-09 09:27] LABS: ALBUMIN 4.6 GM/DL (3.2-4.5); BILIRUBIN,TOTAL 0.5 MG/DL (0.1-1.0); CALCIUM 10.7 MG/DL (8.5-10.1); CREATININE SERUM 1.44 MG/DL (0.60-1.30); POTASSIUM 4.6 MMOL/L (3.6-5.0); TOTAL PROTEIN 7.7 GM/DL (6.4-8.2)
== END ==
LOC: LAB 08:49
PROVIDERS: ATTEND Internal Medicine
DX: I10 Essential (primary) hypertension (principal); E78.4 Other hyperlipidemia; E05.90 Thyrotoxicosis, unspecified without thyrotoxic crisis or storm
CPT/HCPCS: 36415; 80053; 80061; 84443; 85027

== ENCOUNTER 2018-04-05 13:58 | Outpatient (RCR) | payer MEDICARE, OTHER ==
[2018-04-05 14:15] LABS: BASOPHILS % (AUTO) 1 % (0-10); EOSINOPHILS # (AUTO) 0.1 10^3/uL (0.0-0.3); EOSINOPHILS % (AUTO) 2 % (0-10); HEMATOCRIT 34 % (35-52); HEMOGLOBIN 11.1 G/DL (11.5-16.0); LYMPHOCYTES # (AUTO) 0.9 X 10^3 (1.0-4.0); LYMPHOCYTES % (AUTO) 19 % (12-44); MEAN CORPUSCULAR HEMOGLOBIN 26 PG (25-34); MEAN CORPUSCULAR HGB CONC 32 G/DL (32-36); MEAN CORPUSCULAR VOLUME 79 FL (80-99); MEAN PLATELET VOLUME 9.2 FL (7.4-10.4); MONOCYTES # (AUTO) 0.6 X 10^3 (0.0-1.0); MONOCYTES % (AUTO) 13 % (0-12); NEUTROPHILS % (AUTO) 65 % (42-75); PLATELET COUNT 329 10^3/uL (130-400); RED BLOOD COUNT 4.34 10^6/uL (4.35-5.85); RED CELL DISTRIBUTION WIDTH 15.4 % (10.0-14.5); WHITE BLOOD COUNT 4.6 10^3/uL (4.3-11.0)
[2018-04-05 14:33] LABS: ALBUMIN 4.2 GM/DL (3.2-4.5); BILIRUBIN,TOTAL 0.4 MG/DL (0.1-1.0); CALCIUM 10.4 MG/DL (8.5-10.1); CREATININE SERUM 1.38 MG/DL (0.60-1.30); POTASSIUM 4.2 MMOL/L (3.6-5.0); TOTAL PROTEIN 7.1 GM/DL (6.4-8.2)
== END 2018-04-16 | disposition home or self-care (01) ==
LOC: ONC 13:58
PROVIDERS: ATTEND Internal Medicine Hematology & Oncology
DX: C43.59 Malignant melanoma of other part of trunk (principal); C77.3 Secondary and unspecified malignant neoplasm of axilla and upper limb lymph nodes; C79.89 Secondary malignant neoplasm of other specified sites; Z85.3 Personal history of malignant neoplasm of breast; I25.10 Atherosclerotic heart disease of native coronary artery without angina pectoris; I12.9 Hypertensive chronic kidney disease with stage 1 through stage 4 chronic kidney disease, or unspecified chronic kidney disease; N18.3 Chronic kidney disease, stage 3 (moderate); E78.5 Hyperlipidemia, unspecified; R42 Dizziness and giddiness; E03.9 Hypothyroidism, unspecified; Z79.899 Other long term (current) drug therapy; Z92.21 Personal history of antineoplastic chemotherapy; Z92.3 Personal history of irradiation
CPT/HCPCS: 36591; 80053; 83615; 85025

== ENCOUNTER → 2018-04-21 | Outpatient (CLI) | payer MEDICARE, OTHER ==
[~2018-04-21] MED LIST changes: +GADOBUTROL 7.5 MMOL/7.5 ML (GADAVIST) VIAL IV ONE
[2018-04-21 10:35] LABS: CREATININE SERUM 1.41 MG/DL (0.60-1.30)
--- NOTE | 2018-04-21 14:03 | Diagnostic Imaging Report ---
EXAM: MRI BRAIN IAC W/WO CONTRAST INDICATION: Vestibular nerve disorder. History of breast cancer and metastatic melanoma. Dizziness. COMPARISON: MRI brain without contrast 07/07/2017. FINDINGS: Dedicated sequences to the level of the temporal bones demonstrates normal morphology with no abnormal signal, mass or enhancement. The mastoids are clear. No restricted water diffusion or hemosiderin deposition. 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 Mild scattered nonspecific T2 hyperintensities in the supratentorial white matter. No abnormal intracranial enhancement. No restricted water diffusion or hemosiderin deposition. Normal morphology including the major midline structures, sella, posterior fossa and cerebellar pontine angle. The orbits are unremarkable on this nondedicated exam. No hydrocephalus or extra-axial fluid collections. Normal intracranial flow voids. The mastoids are clear. Normal bone marrow signal. IMPRESSION: 1. Stable tiny chronic infarct in the periventricular right frontal lobe. No acute intracranial MRI findings. 2. MRI of the brain is otherwise age-appropriate with no suspicious mass or enhancement including dedicated sequences through the level of the temporal bones. Dictated by: Dictated on workstation # [id number]
== END ==
LOC: RAD 10:01
PROVIDERS: ATTEND Psychiatry & Neurology Neurology
DX: Z01.812 Encounter for preprocedural laboratory examination (principal); I63.89 Other cerebral infarction; H93.3X9 Disorders of unspecified acoustic nerve; Z85.3 Personal history of malignant neoplasm of breast; Z85.820 Personal history of malignant melanoma of skin
CPT/HCPCS: 36415; 70553; 82565; 84520

== ENCOUNTER → 2018-05-01 | Outpatient (CLI) | payer MEDICARE, OTHER ==
[~2018-05-01] MED LIST changes: -GADOBUTROL 7.5 MMOL/7.5 ML (GADAVIST) VIAL IV ONE
--- NOTE | 2018-05-01 13:27 | Diagnostic Imaging Report ---
PROCEDURE: CT chest, abdomen, and pelvis without contrast. TECHNIQUE: Multiple contiguous axial images were obtained through the chest, abdomen, and pelvis without the use of intravenous contrast. INDICATION: Breast carcinoma and metastatic melanoma. Patient complains of right lower quadrant and right-sided pelvic pain. Comparison is made with prior CT from 09/23/2017. CT chest: FINDINGS: A right chest wall port has tip at the SVC right atrial junction. No definite axillary lymphadenopathy is seen. There appeared to be multiple surgical clips in the left axilla. Mediastinal and hilar evaluation is limited without intravenous contrast but overall appearance appears similar to prior CT from September. There are coronary arterial calcifications present. No pericardial or pleural fluid is identified. Evaluation of the pulmonary parenchyma again demonstrates a small nodule in the left upper lobe approximately 4 mm in size, stable when compared with prior CT. No new pulmonary nodules are identified. IMPRESSION: Stable left upper lobe pulmonary nodule when compared with examination from 09/23/2017. CT abdomen and pelvis: FINDINGS: No discrete liver mass is identified. The gallbladder is surgically absent. Pancreas and spleen are unremarkable. No adrenal mass is identified. The kidneys are unremarkable. Aorta is nonaneurysmal. Small and large bowel loops appear nondilated and nonobstructed. There is moderate stool in the colon. There is no ascites. Small lymph nodes in the central retroperitoneum appear similar to prior CT. No mesenteric lymphadenopathy is identified. No iliac or inguinal lymphadenopathy is seen. The bladder is unremarkable. IMPRESSION: Stable noncontrast CT of the abdomen and pelvis when compared with prior study from 09/23/2017. No definite findings to suggest metastatic disease are identified. Dictated by: Dictated on workstation # [id number]
== END ==
LOC: RAD 11:46
PROVIDERS: ATTEND Internal Medicine Hematology & Oncology
DX: C50.919 Malignant neoplasm of unspecified site of unspecified female breast (principal); C43.59 Malignant melanoma of other part of trunk; R10.31 Right lower quadrant pain; R91.1 Solitary pulmonary nodule
CPT/HCPCS: 71250; 74176

== ENCOUNTER 2018-07-27 12:53 | Outpatient (RCR) | payer MEDICARE, OTHER ==
[2018-05-04 13:25] LABS: BASOPHILS % (AUTO) 1 % (0-10); EOSINOPHILS # (AUTO) 0.2 10^3/uL (0.0-0.3); EOSINOPHILS % (AUTO) 4 % (0-10); HEMATOCRIT 34 % (35-52); LYMPHOCYTES # (AUTO) 0.7 X 10^3 (1.0-4.0); LYMPHOCYTES % (AUTO) 16 % (12-44); MEAN CORPUSCULAR HEMOGLOBIN 26 PG (25-34); MEAN CORPUSCULAR HGB CONC 32 G/DL (32-36); MEAN CORPUSCULAR VOLUME 81 FL (80-99); MEAN PLATELET VOLUME 9.8 FL (7.4-10.4); MONOCYTES # (AUTO) 0.3 X 10^3 (0.0-1.0); MONOCYTES % (AUTO) 6 % (0-12); NEUTROPHILS # (AUTO) 3.1 X 10^3 (1.8-7.8); NEUTROPHILS % (AUTO) 73 % (42-75); PLATELET COUNT 251 10^3/uL (130-400); RED BLOOD COUNT 4.26 10^6/uL (4.35-5.85); RED CELL DISTRIBUTION WIDTH 15.4 % (10.0-14.5); WHITE BLOOD COUNT 4.2 10^3/uL (4.3-11.0)
[2018-05-04 13:54] LABS: ALBUMIN 4.3 GM/DL (3.2-4.5); BILIRUBIN,TOTAL 0.4 MG/DL (0.1-1.0); CALCIUM 10.2 MG/DL (8.5-10.1); CREATININE SERUM 1.53 MG/DL (0.60-1.30); POTASSIUM 4.3 MMOL/L (3.6-5.0); TOTAL PROTEIN 7.2 GM/DL (6.4-8.2)
[2018-05-31 13:19] LABS: BASOPHILS % (AUTO) 1 % (0-10); EOSINOPHILS # (AUTO) 0.2 10^3/uL (0.0-0.3); EOSINOPHILS % (AUTO) 4 % (0-10); HEMATOCRIT 37 % (35-52); HEMOGLOBIN 11.9 G/DL (11.5-16.0); LYMPHOCYTES # (AUTO) 0.9 X 10^3 (1.0-4.0); LYMPHOCYTES % (AUTO) 19 % (12-44); MEAN CORPUSCULAR HEMOGLOBIN 27 PG (25-34); MEAN CORPUSCULAR HGB CONC 32 G/DL (32-36); MEAN CORPUSCULAR VOLUME 83 FL (80-99); MEAN PLATELET VOLUME 9.5 FL (7.4-10.4); MONOCYTES # (AUTO) 0.3 X 10^3 (0.0-1.0); MONOCYTES % (AUTO) 7 % (0-12); NEUTROPHILS # (AUTO) 3.3 X 10^3 (1.8-7.8); NEUTROPHILS % (AUTO) 70 % (42-75); PLATELET COUNT 297 10^3/uL (130-400); RED BLOOD COUNT 4.49 10^6/uL (4.35-5.85); RED CELL DISTRIBUTION WIDTH 16.1 % (10.0-14.5); WHITE BLOOD COUNT 4.7 10^3/uL (4.3-11.0)
[2018-05-31 13:42] LABS: ALBUMIN 4.3 GM/DL (3.2-4.5); BILIRUBIN,TOTAL 0.5 MG/DL (0.1-1.0); CALCIUM 10.1 MG/DL (8.5-10.1); CREATININE SERUM 1.41 MG/DL (0.60-1.30); POTASSIUM 4.1 MMOL/L (3.6-5.0); TOTAL PROTEIN 7.3 GM/DL (6.4-8.2)
[2018-06-28 11:38] LABS: BASOPHILS % (AUTO) 1 % (0-10); EOSINOPHILS # (AUTO) 0.2 10^3/uL (0.0-0.3); EOSINOPHILS % (AUTO) 6 % (0-10); HEMATOCRIT 37 % (35-52); HEMOGLOBIN 11.7 G/DL (11.5-16.0); LYMPHOCYTES # (AUTO) 0.7 X 10^3 (1.0-4.0); LYMPHOCYTES % (AUTO) 18 % (12-44); MEAN CORPUSCULAR HEMOGLOBIN 27 PG (25-34); MEAN CORPUSCULAR HGB CONC 32 G/DL (32-36); MEAN CORPUSCULAR VOLUME 85 FL (80-99); MEAN PLATELET VOLUME 10.2 FL (7.4-10.4); MONOCYTES # (AUTO) 0.5 X 10^3 (0.0-1.0); MONOCYTES % (AUTO) 12 % (0-12); NEUTROPHILS # (AUTO) 2.5 X 10^3 (1.8-7.8); NEUTROPHILS % (AUTO) 64 % (42-75); PLATELET COUNT 260 10^3/uL (130-400); RED BLOOD COUNT 4.29 10^6/uL (4.35-5.85); RED CELL DISTRIBUTION WIDTH 16.5 % (10.0-14.5)
[2018-06-28 11:52] LABS: ALBUMIN 4.2 GM/DL (3.2-4.5); BILIRUBIN,TOTAL 0.4 MG/DL (0.1-1.0); CALCIUM 10.4 MG/DL (8.5-10.1); CREATININE SERUM 1.47 MG/DL (0.60-1.30)
[2018-07-27 13:16] LABS: BASOPHILS % (AUTO) 1 % (0-10); EOSINOPHILS # (AUTO) 0.1 10^3/uL (0.0-0.3); EOSINOPHILS % (AUTO) 4 % (0-10); HEMATOCRIT 39 % (35-52); LYMPHOCYTES # (AUTO) 0.6 X 10^3 (1.0-4.0); LYMPHOCYTES % (AUTO) 18 % (12-44); MEAN CORPUSCULAR HEMOGLOBIN 28 PG (25-34); MEAN CORPUSCULAR HGB CONC 33 G/DL (32-36); MEAN CORPUSCULAR VOLUME 85 FL (80-99); MEAN PLATELET VOLUME 9.9 FL (7.4-10.4); MONOCYTES # (AUTO) 0.4 X 10^3 (0.0-1.0); MONOCYTES % (AUTO) 12 % (0-12); NEUTROPHILS # (AUTO) 2.3 X 10^3 (1.8-7.8); NEUTROPHILS % (AUTO) 65 % (42-75); PLATELET COUNT 212 10^3/uL (130-400); RED BLOOD COUNT 4.59 10^6/uL (4.35-5.85); RED CELL DISTRIBUTION WIDTH 15.2 % (10.0-14.5); WHITE BLOOD COUNT 3.5 10^3/uL (4.3-11.0)
[2018-07-27 13:44] LABS: ALBUMIN 4.3 GM/DL (3.2-4.5); BILIRUBIN,TOTAL 0.5 MG/DL (0.1-1.0); CALCIUM 9.9 MG/DL (8.5-10.1); CREATININE SERUM 1.5 MG/DL (0.60-1.30); POTASSIUM 4.9 MMOL/L (3.6-5.0); TOTAL PROTEIN 7.1 GM/DL (6.4-8.2)
== END 2018-08-02 | disposition home or self-care (01) ==
LOC: ONC 12:53
PROVIDERS: ATTEND Internal Medicine Hematology & Oncology
DX: C43.59 Malignant melanoma of other part of trunk (principal); C77.3 Secondary and unspecified malignant neoplasm of axilla and upper limb lymph nodes; C79.89 Secondary malignant neoplasm of other specified sites; Z85.3 Personal history of malignant neoplasm of breast; I25.10 Atherosclerotic heart disease of native coronary artery without angina pectoris; I12.9 Hypertensive chronic kidney disease with stage 1 through stage 4 chronic kidney disease, or unspecified chronic kidney disease; N18.3 Chronic kidney disease, stage 3 (moderate); E78.5 Hyperlipidemia, unspecified; E03.9 Hypothyroidism, unspecified; Z79.899 Other long term (current) drug therapy; Z92.21 Personal history of antineoplastic chemotherapy; Z92.3 Personal history of irradiation
CPT/HCPCS: 36415; 36591; 80053; 82728; 83540; 83615; 85025

== ENCOUNTER → 2018-10-10 | Outpatient (CLI) | payer MEDICARE, OTHER ==
[~2018-10-10] MED LIST changes: -HYDR-3454 PO; +HYDR-3455 PO
--- NOTE | 2018-10-10 14:03 | Diagnostic Imaging Report ---
PROCEDURE: CT chest, abdomen, and pelvis without contrast. TECHNIQUE: Multiple contiguous axial images were obtained through the chest, abdomen, and pelvis without the use of intravenous contrast. Auto Exposure Controls were utilized during the CT exam to meet ALARA standards for radiation dose reduction. INDICATION: Melanoma. COMPARISON: Exam compared to 05/01/2018. FINDINGS: CHEST: A barely perceptible 3-4 mm ground-glass nodule in the left upper lobe is stable if not decreased from prior. No new dominant or suspicious lung mass. There is no evidence for adenopathy at this nonenhanced exam. No pneumonia or failure pattern. No effusion or pneumothorax. No acute soft tissue or osseous chest wall abnormality. ABDOMEN AND PELVIS: Colonic constipation redemonstrated without small bowel dilatation. No mesenteric or retroperitoneal adenopathy. Gallbladder is absent. No pathological biliary dilatation. Spleen, adrenals, and pancreas are unremarkable. The unobstructed kidneys appear normal. The osseous structures are nonacute. There is no ascites. IMPRESSION: CHEST: Subcentimeter ground-glass left upper lobe nodule, stable or smaller than on prior. No convincing evidence of metastatic disease and no acute finding. ABDOMEN AND PELVIS: Redemonstration of constipation without obstruction or perforation. No evidence for metastatic disease or acute abnormalities. Dictated by: Dictated on workstation # [id number]
--- NOTE | 2018-10-10 17:39 | Diagnostic Imaging Report ---
INDICATION: Malignant melanoma. TECHNIQUE: The patient was administered 26.6 mCi technetium 99m MDP intravenously and whole-body imaging was performed after 3 hours. COMPARISON: Correlation is made with prior bone scan from 09/23/2017. FINDINGS: Normal uptake of activity by the axial and appendicular skeleton is noted. There is uptake by the kidneys with excretion into the urinary bladder. Mild uptake in the right foot is again seen. There is some mild uptake at the left acromioclavicular joint. These are likely degenerative. No abnormal foci of tracer accumulation is seen to suggest osseous metastatic disease. IMPRESSION: Stable whole body bone scan. There are no scintigraphic findings of osseous metastatic disease. Dictated by: Dictated on workstation # [id number]
== END ==
LOC: CARD 11:02
PROVIDERS: ATTEND Nurse Practitioner Adult Health
DX: Z01.89 Encounter for other specified special examinations (principal); C43.59 Malignant melanoma of other part of trunk; C77.3 Secondary and unspecified malignant neoplasm of axilla and upper limb lymph nodes; L98.9 Disorder of the skin and subcutaneous tissue, unspecified; R91.8 Other nonspecific abnormal finding of lung field
CPT/HCPCS: 71250; 74176; 78306

== ENCOUNTER 2018-10-17 12:10 | Outpatient (CLI) | payer MEDICARE, OTHER ==
[~2018-10-17] VITALS: Ht 175.3 cm; Wt 72.2 kg
== END 2018-10-17 12:17 | disposition home or self-care (01) ==
LOC: PREOP 12:10
PROVIDERS: ATTEND Surgery
DX: Z01.818 Encounter for other preprocedural examination (principal)

== ENCOUNTER 2018-10-20 05:49 | Day surgery (SDC) | payer MEDICARE, OTHER ==
[~2018-10-20] VITALS: Ht 175.3 cm; Wt 72.2 kg
[2018-10-20] MEDS ORDERED: LACTATED RINGERS 1,000 ML IV PRN (06:09)
[2018-10-20 06:15] VITALS: BP 122/69
[2018-10-20] MEDS ORDERED: ceFAZolin INJECTION 1,000 MG in WATER (STERILE) FOR INJECTION 10 ML IV ONE (06:15)
[2018-10-20] MEDS ORDERED: PROPOFOL INJECTION 50 ML IV ONE (07:21)
[2018-10-20] MEDS ORDERED: BUPIVACAINE 0.5% 30 ML (SENSORCAINE) VIAL ONE (07:21)
[2018-10-20] MEDS ORDERED: LIDOCAINE/EPI 1%-1:100,000 (XYLOCAINE) 20ML ONE (07:21)
[2018-10-20] MEDS ORDERED: PROTAMINE 50 MG/5 ML VIAL ONE (07:21)
--- NOTE | 2018-10-20 07:45 | Progress Note-Pre Operative ---
Pre-Operative Progress Note H&P Reviewed The H&P was reviewed, patient examined and no changes noted. Date Seen by Provider: Oct 20, 2018 Time Seen by Provider: 07:30 Date H&P Reviewed: Oct 20, 2018 Time H&P Reviewed: 07:30 Pre-Operative Diagnosis: hx melanoma, scalp lesion ROB REYES DO Oct 20, 2018 07:45
[2018-10-20] MEDS ORDERED: MUPIROCIN 2% OINT 22 GM (BACTROBAN) TUBE ONE (08:25)
--- NOTE | 2018-10-20 08:42 | Progress Note-Post Operative ---
Post-Operative Progess Note Surgeon (s)/Formation Testing Operator (s) Surgeon ROB REYES DO Formation Testing Operator: na Pre-Operative Diagnosis hx melanoma, scalp lesion Post-Operative Diagnosis scalp lesion Procedure & Operative Findings Date of Procedure 10/20/18 Procedure Performed/Findings excision skin lesion 1.4x 2cm scalp Anesthesia Type mac c local Estimated Blood Loss Estimated blood loss (mL): min Specimens/Packing Specimens Removed scalp lesion ROB REYES DO Oct 20, 2018 08:42
--- NOTE | 2018-10-20 08:50 | Discharge Inst-Simple/Standard ---
Discharge Inst-Standard Patient Instructions/Follow Up Plan of Care/Instructions/FU: 1-2 weeks Bob Activity as Tolerated: Yes Discharge Diet: Regular Diet Other Inst to Patient Follow up Appt: Make appointment for 1-2 week. Instructions: May shower in 24 hours, no tub bath or soaking. Keep area clean and dry. Use incentive spirometer at home as directed. No Smoking Skin/Wound Care: You have antibiotic cream over incision. Repeat once in 24 hours and then just keep clean and dry. Symptoms to Report: Appetite Changes, Extremity Discoloration, Numbness/Tingling, Swelling Increased , Bleeding Excessive, Eyesight Changes, Pain Increased, Urine Color Change, Constipation(Persistent), Fever over 101 degree F, Pain/Pressure in chest, Urinating Difficulty, Cough Up/Vomit Blood, Heart Beat Irreg/Pounding, Pain/ Pressure in jaw, Vaginal Bleeding Increase, Cramps in feet or legs, Lightheadedness, Pain/Pressure in shoulder, Diarrhea(Persistent), Memory Changes Suddenly, Questions/Concerns, Weight gain consecutive days, Dizziness/ Fainting, Nausea/Vomiting, Shortness of Breath, Weight gain over 2 pounds If questions or concerns contact your physician Or seek help at emergency department. ROB REYES DO Oct 20, 2018 08:50
[2018-10-20 09:05] VITALS: BP 142/75
[2018-10-20 09:10] VITALS: BP 142/75
[2018-10-20 09:35] VITALS: BP 148/77
--- NOTE | 2018-10-20 13:40 | OPERATIVE REPORT ---
DATE OF SERVICE: 10/20/2018 PREOPERATIVE DIAGNOSIS: Skin lesion and history of melanoma POSTOPERATIVE DIAGNOSIS: Skin lesion and history of melanoma skin lesion, scalp. PROCEDURE: Excision of scalp lesion 1.4 x 2 cm. SURGEON: Rob Rojas DO ANESTHESIA: MAC with local. ESTIMATED BLOOD LOSS: Minimal. COMPLICATIONS: None. INDICATIONS: The patient is a 73-year-old female with skin lesion with history of melanoma. She understands risks and benefits of procedure and wished to proceed with procedure. Consent was signed in the chart. DESCRIPTION OF PROCEDURE: The patient was taken to the operating suite. She was prepped and draped in sterile fashion. Surgical pause was performed. Local anesthetic was used to infiltrate around the area. Once anesthetic effect took place, a 15 blade scalpel was used to make an incision in elliptical fashion around the lesion. Skin and subcutaneous tissue were removed. Overall, dimensions were 1.4 x 2 cm. The hemostasis was achieved. Wound was irrigated. Skin was then closed using 3-0 Prolene in a running simple fashion. The area was then washed and dried. A Band-Aid was then placed over the incision. The patient tolerated the procedure well without any complications. She was taken to recovery room in stable condition. Specimen was labeled with a short superior, long lateral. Job ID: [id number] DocumentID: [id number] Dictated Date: 10/20/2018 08:53:50 Union Organizer Date: 10/20/2018 13:39:47 Dictated By: ROB ROJAS DO
--- NOTE | 2018-10-20 14:24 | Anesthesia-General Post-Op ---
MAC Patient Condition Mental Status/LOC: Same as Preop Cardiovascular: Satisfactory Nausea/Vomiting: Absent Respiratory: Satisfactory Pain: Controlled Complications: Absent Post Op Complications Complications None Follow Up Care/Instructions Patient Instructions None needed. Anesthesiology Discharge Order Discharge Order Patient is doing well, no complaints, stable vital signs, no apparent adverse anesthesia problems. No complications reported per nursing. MANE HARLEY CRNA Oct 20, 2018 14:24
== END 2018-10-20 09:59 | disposition home or self-care (01) ==
LOC: SDC 05:49
PROVIDERS: ATTEND Surgery
DX: C44.41 Basal cell carcinoma of skin of scalp and neck (principal); Z85.820 Personal history of malignant melanoma of skin; I25.10 Atherosclerotic heart disease of native coronary artery without angina pectoris; I12.9 Hypertensive chronic kidney disease with stage 1 through stage 4 chronic kidney disease, or unspecified chronic kidney disease; N18.3 Chronic kidney disease, stage 3 (moderate); K21.9 Gastro-esophageal reflux disease without esophagitis; G62.9 Polyneuropathy, unspecified; E78.5 Hyperlipidemia, unspecified; E03.9 Hypothyroidism, unspecified; I73.9 Peripheral vascular disease, unspecified; Z85.3 Personal history of malignant neoplasm of breast; Z79.01 Long term (current) use of anticoagulants; Z79.82 Long term (current) use of aspirin; Z79.899 Other long term (current) drug therapy; Z95.1 Presence of aortocoronary bypass graft
CPT/HCPCS: 87081; 88305

== ENCOUNTER 2018-11-30 09:51 | Outpatient (RCR) | payer MEDICARE, OTHER ==
[2018-09-07 11:25] LABS: BASOPHILS % (AUTO) 1 % (0-10); EOSINOPHILS # (AUTO) 0.1 10^3/uL (0.0-0.3); EOSINOPHILS % (AUTO) 3 % (0-10); HEMATOCRIT 39 % (35-52); HEMOGLOBIN 13.4 G/DL (11.5-16.0); LYMPHOCYTES # (AUTO) 0.5 X 10^3 (1.0-4.0); LYMPHOCYTES % (AUTO) 16 % (12-44); MEAN CORPUSCULAR HEMOGLOBIN 30 PG (25-34); MEAN CORPUSCULAR HGB CONC 34 G/DL (32-36); MEAN CORPUSCULAR VOLUME 87 FL (80-99); MEAN PLATELET VOLUME 9.5 FL (7.4-10.4); MONOCYTES # (AUTO) 0.3 X 10^3 (0.0-1.0); MONOCYTES % (AUTO) 10 % (0-12); NEUTROPHILS # (AUTO) 2.3 X 10^3 (1.8-7.8); NEUTROPHILS % (AUTO) 70 % (42-75); PLATELET COUNT 239 10^3/uL (130-400); RED CELL DISTRIBUTION WIDTH 14.2 % (10.0-14.5); WHITE BLOOD COUNT 3.3 10^3/uL (4.3-11.0)
[2018-09-07 11:51] LABS: ALBUMIN 4.3 GM/DL (3.2-4.5); BILIRUBIN,TOTAL 0.5 MG/DL (0.1-1.0); CALCIUM 10.6 MG/DL (8.5-10.1); CREATININE SERUM 1.63 MG/DL (0.60-1.30); POTASSIUM 4.7 MMOL/L (3.6-5.0); TOTAL PROTEIN 7.1 GM/DL (6.4-8.2)
[2018-10-05 13:43] LABS: BASOPHILS # (AUTO) 0.1 10^3/uL (0.0-0.1); BASOPHILS % (AUTO) 1 % (0-10); EOSINOPHILS # (AUTO) 0.2 10^3/uL (0.0-0.3); EOSINOPHILS % (AUTO) 5 % (0-10); HEMATOCRIT 40 % (35-52); HEMOGLOBIN 12.9 G/DL (11.5-16.0); LYMPHOCYTES # (AUTO) 0.8 X 10^3 (1.0-4.0); LYMPHOCYTES % (AUTO) 17 % (12-44); MEAN CORPUSCULAR HEMOGLOBIN 30 PG (25-34); MEAN CORPUSCULAR HGB CONC 33 G/DL (32-36); MEAN CORPUSCULAR VOLUME 91 FL (80-99); MEAN PLATELET VOLUME 9.8 FL (7.4-10.4); MONOCYTES # (AUTO) 0.6 X 10^3 (0.0-1.0); MONOCYTES % (AUTO) 14 % (0-12); NEUTROPHILS # (AUTO) 2.8 X 10^3 (1.8-7.8); NEUTROPHILS % (AUTO) 63 % (42-75); PLATELET COUNT 235 10^3/uL (130-400); RED CELL DISTRIBUTION WIDTH 14.5 % (10.0-14.5); WHITE BLOOD COUNT 4.4 10^3/uL (4.3-11.0)
[2018-10-05 14:11] LABS: ALBUMIN 4.3 GM/DL (3.2-4.5); BILIRUBIN,TOTAL 0.4 MG/DL (0.1-1.0); CALCIUM 10.2 MG/DL (8.5-10.1); CREATININE SERUM 1.52 MG/DL (0.60-1.30); POTASSIUM 4.8 MMOL/L (3.6-5.0); TOTAL PROTEIN 7.2 GM/DL (6.4-8.2)
[2018-11-30 10:17] LABS: BASOPHILS % (AUTO) 1 % (0-10); EOSINOPHILS # (AUTO) 0.2 10^3/uL (0.0-0.3); EOSINOPHILS % (AUTO) 5 % (0-10); HEMATOCRIT 38 % (35-52); HEMOGLOBIN 12.6 G/DL (11.5-16.0); LYMPHOCYTES # (AUTO) 0.5 X 10^3 (1.0-4.0); LYMPHOCYTES % (AUTO) 15 % (12-44); MEAN CORPUSCULAR HEMOGLOBIN 31 PG (25-34); MEAN CORPUSCULAR HGB CONC 33 G/DL (32-36); MEAN CORPUSCULAR VOLUME 94 FL (80-99); MEAN PLATELET VOLUME 9.2 FL (7.4-10.4); MONOCYTES # (AUTO) 0.4 X 10^3 (0.0-1.0); MONOCYTES % (AUTO) 10 % (0-12); NEUTROPHILS # (AUTO) 2.5 X 10^3 (1.8-7.8); NEUTROPHILS % (AUTO) 69 % (42-75); PLATELET COUNT 210 10^3/uL (130-400); RED CELL DISTRIBUTION WIDTH 14.3 % (10.0-14.5); WHITE BLOOD COUNT 3.6 10^3/uL (4.3-11.0)
[2018-11-30 10:46] LABS: ALBUMIN 4.1 GM/DL (3.2-4.5); BILIRUBIN,TOTAL 0.6 MG/DL (0.1-1.0); CREATININE SERUM 1.53 MG/DL (0.60-1.30); POTASSIUM 4.4 MMOL/L (3.6-5.0); TOTAL PROTEIN 6.9 GM/DL (6.4-8.2)
== END 2018-12-06 | disposition home or self-care (01) ==
LOC: ONC 09:51
PROVIDERS: ATTEND Internal Medicine Hematology & Oncology
DX: C43.59 Malignant melanoma of other part of trunk (principal); C77.3 Secondary and unspecified malignant neoplasm of axilla and upper limb lymph nodes; C79.89 Secondary malignant neoplasm of other specified sites; Z85.3 Personal history of malignant neoplasm of breast; I25.10 Atherosclerotic heart disease of native coronary artery without angina pectoris; I12.9 Hypertensive chronic kidney disease with stage 1 through stage 4 chronic kidney disease, or unspecified chronic kidney disease; N18.3 Chronic kidney disease, stage 3 (moderate); E78.5 Hyperlipidemia, unspecified; E03.9 Hypothyroidism, unspecified; Z79.899 Other long term (current) drug therapy; Z92.21 Personal history of antineoplastic chemotherapy; Z92.3 Personal history of irradiation
CPT/HCPCS: 36591; 80053; 82728; 83615; 85025; 93005; 99213

== ENCOUNTER → 2019-02-21 | Outpatient (CLI) | payer MEDICARE, OTHER ==
[2019-02-21 11:30] LABS: ALANINE AMINOTRANSFERASE 15 U/L (0-55); ALBUMIN 4.6 GM/DL (3.2-4.5); ALKALINE PHOSPHATASE 108 U/L (40-136); BILIRUBIN,TOTAL 0.6 MG/DL (0.1-1.0); BUN/CREATININE RATIO 16; CALCIUM 10.5 MG/DL (8.5-10.1); CARBON DIOXIDE 26 MMOL/L (21-32); CHLORIDE 102 MMOL/L (98-107); CHOLESTEROL 340 MG/DL (< 200); CREATININE SERUM 1.39 MG/DL (0.60-1.30); GFR ESTIMATED 37; GLUCOSE 99 MG/DL (70-105); HDL CHOLESTEROL 56 MG/DL (40-60); POTASSIUM 4.8 MMOL/L (3.6-5.0); SODIUM 138 MMOL/L (135-145); TOTAL PROTEIN 7.4 GM/DL (6.4-8.2); TRIGLYCERIDES 183 MG/DL (<150); VLDL CHOLESTEROL 37 MG/DL (5-40)
== END ==
LOC: LAB 10:48
PROVIDERS: ATTEND Internal Medicine
DX: Z01.89 Encounter for other specified special examinations (principal)
CPT/HCPCS: 36415; 80053; 80061; 84443

== ENCOUNTER 2019-03-27 05:49 | Outpatient (CLI) | payer MEDICARE, OTHER ==
[~2019-03-27] VITALS: Ht 175.3 cm; Wt 76.7 kg
[2019-03-27] MEDS ORDERED: FERR325T5 PO (15:24)
[2019-03-27] MEDS ORDERED: VENL150C PO (15:24)
[2019-03-30] MEDS ORDERED: SUCR1TAB36 PO (15:09)
== END 2019-03-27 15:25 | disposition home or self-care (01) ==
LOC: PREOP 05:49
PROVIDERS: ATTEND Surgery
DX: Z01.818 Encounter for other preprocedural examination (principal)

== ENCOUNTER → 2019-03-30 | Day surgery (SDC) | payer MEDICARE, OTHER ==
[~2019-03-30] VITALS: Ht 175.3 cm; Wt 76.7 kg
[~2019-03-30] MED LIST changes: +FERR325T5 PO; +HURRICAINE EXT TUBE (BENZOCAINE) ONE; +HURRICAINE EXT TUBE (BENZOCAINE) XX PRN; +LACTATED RINGERS 1,000 ML IV ONE; +LACTATED RINGERS 1,000 ML IV STA; +SUCR1TAB36 PO; +VENL150C PO; +proPOfol 200 MG/20 ML (DIPRIVAN) VIAL IV ONE
--- NOTE | 2019-03-30 13:11 | Progress Note-Pre Operative ---
Pre-Operative Progress Note H&P Reviewed The H&P was reviewed, patient examined and no changes noted. Date Seen by Provider: Mar 30, 2019 Time Seen by Provider: 13:11 Date H&P Reviewed: Mar 30, 2019 Time H&P Reviewed: 13:11 Pre-Operative Diagnosis: gerd/dysphagia ROB REYES DO Mar 30, 2019 13:11
[2019-03-30 13:30] VITALS: BP 161/78
[2019-03-30 15:00] VITALS: BP 165/79
--- NOTE | 2019-03-30 15:08 | Progress Note-Post Operative ---
Post-Operative Progess Note Surgeon (s)/Freight Representative (s) Surgeon ROB REYES DO Freight Representative: na Pre-Operative Diagnosis gerd/dysphagia Post-Operative Diagnosis previous wrap Procedure & Operative Findings Date of Procedure 03/30/19 Procedure Performed/Findings egd Anesthesia Type per digital media producer Estimated Blood Loss Estimated blood loss (mL): none Specimens/Packing Specimens Removed na ROB REYES DO Mar 30, 2019 15:07
--- NOTE | 2019-03-30 15:12 | Discharge Inst-Simple/Standard ---
Discharge Inst-Standard Discharge Medications New, Converted or Re-Newed RX: Transmitted to Pharmacy Patient Instructions/Follow Up Plan of Care/Instructions/FU: 2 weeks Bob Activity as Tolerated: Yes Discharge Diet: Regular Diet ROB REYES DO Mar 30, 2019 15:12
--- NOTE | 2019-03-30 15:18 | Anesthesia-General Post-Op ---
MAC Patient Condition Mental Status/LOC: Same as Preop Cardiovascular: Satisfactory Nausea/Vomiting: Absent Respiratory: Satisfactory Pain: Controlled Complications: Absent Post Op Complications Complications None Follow Up Care/Instructions Patient Instructions None needed. Anesthesiology Discharge Order Discharge Order Patient is doing well, no complaints, stable vital signs, no apparent adverse anesthesia problems. No complications reported per nursing. DENNISE MUKHERJEE CRNA Mar 30, 2019 15:18
[2019-03-30 15:35] VITALS: BP 160/76
[2019-03-30 15:48] VITALS: BP 160/76
--- NOTE | 2019-03-31 02:11 | OPERATIVE REPORT ---
DATE OF SERVICE: 03/30/2019 PREOPERATIVE DIAGNOSES: Gastroesophageal reflux disease, dysphagia. POSTOPERATIVE DIAGNOSES: Gastroesophageal reflux disease, dysphagia, evidence of previous wrap. PROCEDURE: EGD. SURGEON: Rob Rojas DO ANESTHESIA: Per MANAGER FIELD INVESTIGATIONS. ESTIMATED BLOOD LOSS: None. COMPLICATIONS: None. INDICATIONS: The patient is a 74-year-old female who has been having reflux symptoms and some dysphagia. She understands risks and benefits of procedure and wished to proceed with procedure. Consent was signed in the chart. DESCRIPTION OF PROCEDURE: The patient was taken to the endoscopy suite, placed in left lateral recumbent position. Timeout was performed. Scope was inserted in the mouth, down the esophagus, stomach and into the duodenum without difficulty. There were no polyps, masses or ulcerations within the duodenum. Scope was slowly retracted back into the stomach where it was further insufflated. A couple of benign appearing small polyps present within the stomach. No masses or ulcerations, no erythematous changes. Scope was retroflexed noting evidence of previous wrap. No other pathology noted. Scope was returned to its normal position, slowly withdrawn to the distal esophagus. No polyps, masses or ulcerations. Very minimal erythematous changes. Scope was slowly retracted back until completely removed. The patient tolerated procedure well without any complications. She was taken to recovery room in stable condition. RECOMMENDATIONS: The patient will be started on Carafate 1 gram four times a day to see if any improvement of her symptoms. She will continue all other current medications. The patient will follow up in 2 weeks and any issues before that, will be seen at that time. We would also consider doing barium swallow if symptoms persist. Job ID: [id number] DocumentID: [id number] Dictated Date: 03/30/2019 15:21:11 Box Car Washer Date: 03/31/2019 02:10:41 Dictated By: ROB ROJAS DO
== END ==
LOC: ENDO 12:38
PROVIDERS: ATTEND Surgery
DX: K21.9 Gastro-esophageal reflux disease without esophagitis (principal); K31.7 Polyp of stomach and duodenum; K31.89 Other diseases of stomach and duodenum; R13.10 Dysphagia, unspecified; I10 Essential (primary) hypertension; I73.9 Peripheral vascular disease, unspecified; I77.9 Disorder of arteries and arterioles, unspecified; I25.10 Atherosclerotic heart disease of native coronary artery without angina pectoris; I87.2 Venous insufficiency (chronic) (peripheral); E78.5 Hyperlipidemia, unspecified; G62.9 Polyneuropathy, unspecified; R26.9 Unspecified abnormalities of gait and mobility; R22.43 Localized swelling, mass and lump, lower limb, bilateral; F32.9 Major depressive disorder, single episode, unspecified; Z88.1 Allergy status to other antibiotic agents; Z95.1 Presence of aortocoronary bypass graft; Z88.5 Allergy status to narcotic agent; Z88.7 Allergy status to serum and vaccine; Z88.8 Allergy status to other drugs, medicaments and biological substances; Z79.82 Long term (current) use of aspirin; Z79.899 Other long term (current) drug therapy; Z82.3 Family history of stroke; Z82.49 Family history of ischemic heart disease and other diseases of the circulatory system; Z80.9 Family history of malignant neoplasm, unspecified

== ENCOUNTER 2019-04-03 11:04 | Outpatient (RCR) | payer MEDICARE, OTHER ==
[2019-01-11 09:11] LABS: BASOPHILS % (AUTO) 1 % (0-10); EOSINOPHILS # (AUTO) 0.3 10^3/uL (0.0-0.3); EOSINOPHILS % (AUTO) 6 % (0-10); HEMATOCRIT 39 % (35-52); HEMOGLOBIN 13.2 G/DL (11.5-16.0); LYMPHOCYTES # (AUTO) 0.9 X 10^3 (1.0-4.0); LYMPHOCYTES % (AUTO) 20 % (12-44); MEAN CORPUSCULAR HEMOGLOBIN 32 PG (25-34); MEAN CORPUSCULAR HGB CONC 34 G/DL (32-36); MEAN CORPUSCULAR VOLUME 96 FL (80-99); MEAN PLATELET VOLUME 9.5 FL (7.4-10.4); MONOCYTES # (AUTO) 0.4 X 10^3 (0.0-1.0); MONOCYTES % (AUTO) 8 % (0-12); NEUTROPHILS % (AUTO) 65 % (42-75); PLATELET COUNT 190 10^3/uL (130-400); WHITE BLOOD COUNT 4.7 10^3/uL (4.3-11.0)
[2019-01-11 09:34] LABS: ALBUMIN 4.2 GM/DL (3.2-4.5); BILIRUBIN,TOTAL 0.4 MG/DL (0.1-1.0); CALCIUM 10.1 MG/DL (8.5-10.1); CREATININE SERUM 1.51 MG/DL (0.60-1.30); POTASSIUM 4.5 MMOL/L (3.6-5.0); TOTAL PROTEIN 6.9 GM/DL (6.4-8.2)
[2019-02-21 11:18] LABS: BASOPHILS # (AUTO) 0.1 10^3/uL (0.0-0.1); BASOPHILS % (AUTO) 1 % (0-10); EOSINOPHILS # (AUTO) 0.3 10^3/uL (0.0-0.3); EOSINOPHILS % (AUTO) 5 % (0-10); HEMATOCRIT 44 % (35-52); HEMOGLOBIN 14.6 G/DL (11.5-16.0); LYMPHOCYTES % (AUTO) 18 % (12-44); MEAN CORPUSCULAR HEMOGLOBIN 32 PG (25-34); MEAN CORPUSCULAR HGB CONC 33 G/DL (32-36); MEAN CORPUSCULAR VOLUME 96 FL (80-99); MEAN PLATELET VOLUME 9.6 FL (7.4-10.4); MONOCYTES # (AUTO) 0.5 X 10^3 (0.0-1.0); MONOCYTES % (AUTO) 9 % (0-12); NEUTROPHILS # (AUTO) 3.6 X 10^3 (1.8-7.8); NEUTROPHILS % (AUTO) 67 % (42-75); PLATELET COUNT 243 10^3/uL (130-400); WHITE BLOOD COUNT 5.3 10^3/uL (4.3-11.0)
[2019-02-21 11:32] LABS: ALANINE AMINOTRANSFERASE 15 U/L (0-55); ALBUMIN 4.6 GM/DL (3.2-4.5); ALKALINE PHOSPHATASE 109 U/L (40-136); BILIRUBIN,TOTAL 0.6 MG/DL (0.1-1.0); BUN/CREATININE RATIO 16; CALCIUM 10.4 MG/DL (8.5-10.1); CARBON DIOXIDE 25 MMOL/L (21-32); CHLORIDE 103 MMOL/L (98-107); GFR ESTIMATED 37; GLUCOSE 100 MG/DL (70-105); POTASSIUM 4.8 MMOL/L (3.6-5.0); SODIUM 138 MMOL/L (135-145); TOTAL PROTEIN 7.5 GM/DL (6.4-8.2)
[~2019-04-03 11:04] MED LIST changes: -HURRICAINE EXT TUBE (BENZOCAINE) ONE; -HURRICAINE EXT TUBE (BENZOCAINE) XX PRN; -LACTATED RINGERS 1,000 ML IV ONE; -LACTATED RINGERS 1,000 ML IV STA; -proPOfol 200 MG/20 ML (DIPRIVAN) VIAL IV ONE
[2019-04-03 11:29] LABS: BASOPHILS % (AUTO) 1 % (0-10); EOSINOPHILS # (AUTO) 0.2 10^3/uL (0.0-0.3); EOSINOPHILS % (AUTO) 4 % (0-10); HEMATOCRIT 38 % (35-52); HEMOGLOBIN 12.9 G/DL (11.5-16.0); LYMPHOCYTES % (AUTO) 21 % (12-44); MEAN CORPUSCULAR HEMOGLOBIN 33 PG (25-34); MEAN CORPUSCULAR HGB CONC 34 G/DL (32-36); MEAN CORPUSCULAR VOLUME 96 FL (80-99); MEAN PLATELET VOLUME 9.2 FL (7.4-10.4); MONOCYTES # (AUTO) 0.5 X 10^3 (0.0-1.0); MONOCYTES % (AUTO) 12 % (0-12); NEUTROPHILS # (AUTO) 2.9 X 10^3 (1.8-7.8); NEUTROPHILS % (AUTO) 63 % (42-75); PLATELET COUNT 213 10^3/uL (130-400); RED CELL DISTRIBUTION WIDTH 12.5 % (10.0-14.5); WHITE BLOOD COUNT 4.6 10^3/uL (4.3-11.0)
[2019-04-03 11:51] LABS: ALBUMIN 4.2 GM/DL (3.2-4.5); BILIRUBIN,TOTAL 0.5 MG/DL (0.1-1.0); CALCIUM 9.4 MG/DL (8.5-10.1); CREATININE SERUM 1.08 MG/DL (0.60-1.30); POTASSIUM 4.7 MMOL/L (3.6-5.0); TOTAL PROTEIN 6.8 GM/DL (6.4-8.2)
== END 2019-04-11 | disposition home or self-care (01) ==
LOC: ONC 11:04
PROVIDERS: ATTEND Internal Medicine Hematology & Oncology
DX: C43.59 Malignant melanoma of other part of trunk (principal); C77.3 Secondary and unspecified malignant neoplasm of axilla and upper limb lymph nodes; C79.89 Secondary malignant neoplasm of other specified sites; Z85.3 Personal history of malignant neoplasm of breast; I25.10 Atherosclerotic heart disease of native coronary artery without angina pectoris; I12.9 Hypertensive chronic kidney disease with stage 1 through stage 4 chronic kidney disease, or unspecified chronic kidney disease; N18.3 Chronic kidney disease, stage 3 (moderate); E78.5 Hyperlipidemia, unspecified; E03.9 Hypothyroidism, unspecified; Z79.899 Other long term (current) drug therapy; Z92.21 Personal history of antineoplastic chemotherapy; Z92.3 Personal history of irradiation
CPT/HCPCS: 36591; 80053; 82728; 83615; 85025; 93005

== ENCOUNTER 2019-04-07 00:14 | Observation (INO) | payer MEDICARE, OTHER ==
[~2019-04-07] VITALS: Ht 175.3 cm; Wt 79.9 kg
[2019-04-07] VITALS (11 sets, daily range): BP systolic 126–166; BP diastolic 72–81
[2019-04-07] MEDS ORDERED: ASPIRIN 81 MG CHEW (CHILDREN'S ASA) PO ONE (00:30)
[2019-04-07] MEDS ORDERED: NITROGLYCERIN 0.4 MG SL TABS BTL 25'S SL PRN ×2 (00:30→04:00)
--- NOTE | 2019-04-07 00:30 | NUR ---
FRIENDS BROUGHT BACK TO BE WITH PATIENT.
--- NOTE | 2019-04-07 00:35 | ED Chest Pain ---
General Stated Complaint: CP Source: patient History of Present Illness Date Seen by Provider: Apr 07, 2019 Time Seen by Provider: 00:10 Initial Comments PT ARRIVES VIA POV, WITH WHEELCHAIR ASSISTANCE OUT OF VEHICLE C/O CHEST PAIN SINCE 2300 TONIGHT--BEGAN WHEN SHE WAS TRYING TO GOT TO SLEEP STATES PAIN WAS 7/10 TOOK NTG X 1 AND PAIN DOWN TO 3/10, STATES SHE JUST FEELS A LITTLE HEAVINESS ON HER CHEST NOW NO SHORTNESS OF BREATH OR PAIN WITH BREATHING NO SWEATS NO NAUSEA/VOMITING NO DIZZINESS NO PALPITATIONS HAS HAD RIGHT LEG SWELLING FOR THE LAST 3 WEEKS, SINCE HAD BEEN IN HOSPITAL IN [place] FOR 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 HAS HAD SLIGHT COUGH SINCE EGD 03/30/19--HAS HISTORY OF CHRONIC COUGH NO FEVER PT HAS HISTORY OF AK IN 2002 OR 2003, WITH 2 VESSEL CABG IN 2002 OR 2003 AND LATER LATER ANGIOPLASTY PT IS ON PLAVIX PT CANNOT TOLERATE STATINS LAST CARDIAC CATH 10/13/17--DIFFUSE DISEASE, NO INTERVENTION AT THAT TIME PT HAD RIGHT BREAST CANCER IN 1997--S/P LUMPECTOMY, CHEMO AND RADIATION PT HAS METASTATIC MELANOMA--DX IN 2013--HAD REMOVAL OF LESION TO LEFT FLANK, WAS DX WITH METS TO SPINE AND ARM IN 2014--PT IS ON "MAINTENANCE CHEMO" PCP: DR. TRAVIS AFTER SCHOOL TEACHER: DR. JUNIOR ONCOLOGIST: DR. ROLON Allergies and Home Medications Allergies Coded Allergies: Tetanus Vaccines and Toxoid (Verified Allergy, Unknown, 04/07/19) choline fenofibrate (Verified Allergy, Unknown, 04/07/19) clindamycin (Verified Allergy, Unknown, RASH, 04/07/19) codeine (Verified Allergy, Unknown, 04/07/19) lisinopril (Verified Allergy, Unknown, RASH, 04/07/19) morphine (Verified Allergy, Unknown, 04/07/19) oxycodone (Verified Allergy, Unknown, 04/07/19) propoxyphene (Verified Allergy, Unknown, 04/07/19) Vamfqrl-Ctn-Kal Reductase Inhibitor (Unverified Adverse Reaction, Unknown, 04/07/19) SEVERE MUSCLE PAIN Home Medications Acetaminophen 650 Mg Tablet.er, 650 MG PO Q8H PRN for PAIN-MILD, (Reported) Acyclovir 400 Mg Tablet, 400 MG PO BID, (Reported) Aspirin 325 Mg Tablet, 325 MG PO DAILY, (Reported) Clonazepam 0.5 Mg Tablet, 0.5 MG PO DAILY PRN for ANXIETY, (Reported) Clopidogrel Bisulfate 75 Mg Tablet, 75 MG PO DAILY, (Reported) Ferrous Sulfate 325 Mg Tablet.dr, 325 MG PO DAILY, (Reported) Hyoscyamine Sulfate 0.125 Mg Tablet, 0.125 MG PO DAILY, (Reported) Levothyroxine Sodium 75 Mcg Tablet, 75 MCG PO DAILY, (Reported) Pantoprazole Sodium 40 Mg Tablet.dr, 40 MG PO DAILY, (Reported) Polyethylene Glycol 3350 17 Gm Powd.pack, 17 GM PO DAILY, (Reported) Prednisolone Acetate 5 Ml Drops.susp, 1 DROP OU Q48H, (Reported) Sucralfate 1 Gm Tablet, 1 GM PO QID Prescribed by: ROB REYES on 03/30/19 1509 Vemurafenib 240 Mg Tablet, 240 MG PO BID, (Reported) Venlafaxine HCl 150 Mg Cap.er.24h, 150 MG PO DAILY, (Reported) Patient Home Medication List Home Medication List Reviewed: Yes Review of Systems Review of Systems Constitutional: no symptoms reported; No diaphoresis, No dizziness Respiratory: See HPI, Cough; Denies Shortness of Air, Denies Wheezing Cardiovascular: See HPI, Chest Pain, Edema; Denies Irregular Heart Rate, Denies Lightheadedness, Denies Palpitations, Denies Syncope Gastrointestinal: No Symptoms Reported; Denies Nausea, Denies Vomiting Genitourinary: No Symptoms Reported Musculoskeletal: see HPI Skin: no symptoms reported Psychiatric/Neurological: No Symptoms Reported Endocrine: No Symptoms Reported Hematologic/Lymphatic: See HPI Past Cnwptjo-Xfjyje-Avcpul Hx Patient Social History Alcohol Use: Denies Use Recreational Drug Use: No Smoking Status: Never a Smoker 2nd Hand Smoke Exposure: No Recent Foreign Travel: No Contact w/Someone Who Travel: No Recent Hopitalizations: No Immunizations Up To Date Tetanus Booster (TDap): More than 5yrs PED Vaccines UTD: No Date of Pneumonia Vaccine: Jul 18, 2015 Date of Influenza Vaccine: Apr 24, 2018 Seasonal Allergies Seasonal Allergies: Yes Past Medical History Surgeries: Yes (CARDIAC CATHS--2 VESSEL CABG 2002 OR 2003, WITH ANGIOPLASTY 2016; RIGHT BREAST LUMPECTOMY WITH LYMPH NODE DISSECTION; LEFT PORT PLACED/REMOVED, NOW HAS RIGHT PORT IN PLACE; TOE SURGERY; REPAIR OF "PERFORATED ESOPHAGUS"/JOSELIN FUNDOPLICATION; REMOVAL OF BASAL CELL CANCER ON SCALP 10/2018) Abdominal, Angioplasty, Breast, Cardiac, CABG, Gallbladder, Orthopedic Respiratory: No Cardiac: Yes (2-VESSEL CABG 2002 OR 2003; CARDIAC ANGIOPLASTY 05/2017; MILD CAROTID DISEASE AND PERIPHERAL VASCULAR DISEASE) Chronic Edema/Swelling, Coronary Artery Disease, Heart Attack, High Cholesterol, Hypertension, Peripheral Vascular Neurological: Yes Vertigo Reproductive Disorders: No Female Reproductive Disorders: Denies Sexually Transmitted Disease: No HIV/AIDS: No Genitourinary: Yes Renal Failure Gastrointestinal: Yes (COLON PROBLEMS DUE TO ADHESIONS; PERFORATED ESOPHAGUS WITH REPAIR) Gastroesophageal Reflux, Chronic Constipation, Polyps Musculoskeletal: Yes (BALANCE ISSUES) Arthritis, Fibromyalgia, Chronic Back Pain Endocrine: Yes Hypothyroidsim HEENT: Yes (GLASSES) Loss of Vision: Bilateral Hearing Impairment: Denies Cancer: Yes (BREAST CA 1997--RIGHT LUMPECTOMY, CHEMO AND RADIATION; METASTATIC MELANOMA--DX 2013--S/P SURGICAL REMOVAL OF LESION FROM LEFT FLANK. DX WTIH METS TO BACK/SPINE AND ARM IN 2014, NO ON "MAINTENANCE CHEMO" (CURRENT); REMOVAL OF BASAL CELL CANCER OF SCALP 10/2018) Skin, Breast, Melanoma Did You Recieve Any Treatments: Yes What Type of Treatment Did You: Chemotherapy, Radiation, Surgical Intervention Psychosocial: Yes Anxiety, Depression Integumentary: Yes (MELANOMA REMOVED FROM LEFT FLANK 08/29/13) Blood Disorders: Yes (ANEMIA) Adverse Reaction/Blood Tranf: No (N/A) Family Medical History Cancer 09 BROTHER, Onset:Unknown (lung ca) Dementia maternal grandmother, Onset:Unknown Family history: Breast disease paternal grandmother, Onset:Unknown (ca) Family history: Diabetes mellitus 03 MOTHER, Onset:Unknown Heart disease 03 MOTHER, Onset:Unknown Myocardial infarction 03 FATHER, Onset:50's - 60 CAD Over 55 Years Old Physical Exam Vital Signs Vital Signs - First Documented 04/07/19 00:14 Temp 36.4 Pulse 72 Resp 21 B/P (MAP) 164/84 (110) Pulse Ox 100 O2 Delivery Room Air Capillary Refill : Height, Weight, BMI Height: 5'9.00" Weight: 169lbs. 0.0oz. [id number]; 25.0 BMI Method:Stated General Appearance: No Apparent Distress, WD/WN Neck: Full Range of Motion, Normal Inspection, Non Tender, Supple; No Carotid Bruit, No JVD Respiratory: Chest Non Tender, Normal Breath Sounds, No Accessory Muscle Use, No Respiratory Distress Cardiovascular: Regular Rate, Rhythm, No JVD, Normal Peripheral Pulses, Systolic Murmur (?FAINT?) Gastrointestinal: Non Tender, Soft Extremity: Normal Range of Motion, Non Tender, No Calf Tenderness, Pedal Edema (1+ EDEMA RIGHT LOWER LEG/ANKLE; LOWER LEG VENOUS STASIS CHANGES AND SUPERFICIAL VARICOSITIES) Neurologic/Psychiatric: Alert, Oriented x3, No Motor/Sensory Deficits, Normal Mood/Affect, mattress stripper II-XII Norm as Tested Skin: Normal Color, Warm/Dry Progress/Results/Core Measures Results/Orders Lab Results Laboratory Tests Test 04/07/19 00:25 Range/Units White Blood Count 7.3 4.3-11.0 10^3/uL Red Blood Count 3.65 L 4.35-5.85 10^6/uL Hemoglobin 11.8 11.5-16.0 G/DL Hematocrit 35 35-52 % Mean Corpuscular Volume 96 80-99 FL Mean Corpuscular Hemoglobin 32 25-34 PG Mean Corpuscular Hemoglobin Concent 34 32-36 G/DL Red Cell Distribution Width 12.7 10.0-14.5 % Platelet Count 199 130-400 10^3/uL Mean Platelet Volume 9.5 7.4-10.4 FL Neutrophils (%) (Auto) 68 42-75 % Lymphocytes (%) (Auto) 18 12-44 % Monocytes (%) (Auto) 10 0-12 % Eosinophils (%) (Auto) 3 0-10 % Basophils (%) (Auto) 1 0-10 % Neutrophils # (Auto) 4.9 1.8-7.8 X 10^3 Lymphocytes # (Auto) 1.3 1.0-4.0 X 10^3 Monocytes # (Auto) 0.7 0.0-1.0 X 10^3 Eosinophils # (Auto) 0.3 0.0-0.3 10^3/uL Basophils # (Auto) 0.0 0.0-0.1 10^3/uL Prothrombin Time 13.0 12.2-14.7 SEC INR Comment 1.0 0.8-1.4 Activated Partial Thromboplast Time 41 H 24-35 SEC Sodium Level 134 L 135-145 MMOL/L Potassium Level 3.8 3.6-5.0 MMOL/L Chloride Level 101 98-107 MMOL/L Carbon Dioxide Level 21 21-32 MMOL/L Anion Gap 12 5-14 MMOL/L Blood Urea Nitrogen 35 H 7-18 MG/DL Creatinine 1.39 H 0.60-1.30 MG/DL Estimat Glomerular Filtration Rate 37 BUN/Creatinine Ratio 25 Glucose Level 142 H 70-105 MG/DL Calcium Level 9.3 8.5-10.1 MG/DL Corrected Calcium 9.3 8.5-10.1 MG/DL Magnesium Level 2.2 1.6-2.4 MG/DL Total Bilirubin 0.3 0.1-1.0 MG/DL Aspartate Amino Transf (AST/SGOT) 20 5-34 U/L Alanine Aminotransferase (ALT/SGPT) 18 0-55 U/L Alkaline Phosphatase 110 40-136 U/L Total Creatine Kinase 45 29-168 U/L Creatine Kinase MB 3.7 <6.6 NG/ML Myoglobin 65.2 10.0-92.0 NG/ML Troponin I < 0.028 <0.028 NG/ML B-Type Natriuretic Peptide 469.3 H <100.0 PG/ML Total Protein 6.4 6.4-8.2 GM/DL Albumin 4.0 3.2-4.5 GM/DL Amylase Level 68 25-125 U/L Lipase 94 H 8-78 U/L My Orders Orders - EILEEN GUNTER DO Cbc With Automated Diff (04/07/19:) Magnesium (04/07/19) Chest 1 View, Ap/Pa Only (04/07/19) Ekg Tracing (04/07/19) Cardiac Profile 1 (04/07/19) Comprehensive Metabolic Panel (04/07/19) Myoglobin Serum (04/07/19) Protime With Inr (04/07/19) Partial Thromboplastin Time (04/07/19:) O2 (04/07/19:) Monitor-Rhythm Ecg Trace Only (04/07/19) Lipid Panel (04/08/19 06:00) Ed Iv/Invasive Line Start (04/07/19 00:26) Creatine Kinase (04/07/19 00:26) Creatine Kinase Mb (04/07/19 00:26) Lipase (04/07/19 00:26) Amylase (04/07/19 00:26) BNP (04/07/19 00:26) Nitroglycerin 0.4 Mg Btl 25's (Nitrostat (04/07/19 00:30) Aspirin Chewable Tablet (Baby Aspirin Ch (04/07/19 00:30) Pantoprazole Injection (Protonix Injecti (04/07/19 01:30) Lidocaine 2% Viscous 15 Ml (Xylocaine Vi (04/07/19 01:30) Antacid Suspension (Mylanta Suspension (04/07/19 01:30) Furosemide Injection (Lasix Injection) (04/07/19 01:30) Catheter(Urinary) Insert & Ass 03,15 (04/07/19 01:24) Enoxaparin Injection (Lovenox Injection) (04/07/19 01:30) Medications Given in ED Current Medications Medications Dose Ordered Sig/[place] Route Start Time Stop Time Status Last Admin Dose Admin Al Hydrox/Mg Hydrox/Simethicone 30 ml ONCE ONCE PO 04/07/19 01:30 04/07/19 01:31 DC 04/07/19 01:26 30 ML Aspirin 324 mg ONCE ONCE PO 04/07/19 00:30 04/07/19 00:31 DC 04/07/19 00:33 324 MG Furosemide 40 mg ONCE ONCE IVP 04/07/19 01:30 04/07/19 01:31 DC 04/07/19 01:31 40 MG Lidocaine HCl 15 ml ONCE ONCE PO 04/07/19 01:30 04/07/19 01:31 DC 04/07/19 01:26 15 ML Pantoprazole 40 mg ONCE ONCE IV 04/07/19 01:30 04/07/19 01:31 DC 04/07/19 01:26 40 MG Vital Signs/I&O 04/07/19 04/07/19 00:14 00:14 Temp 36.4 Pulse 72 Resp 21 B/P (MAP) 164/84 (110) Pulse Ox 100 O2 Delivery Room Air Room Air Progress Progress Note : Progress Note DECLINES ANY MORE NTG, STATES HER CHEST DOES NOT FEEL HEAVY ANYMORE, NOW JUST HAS EPIGASTRIC "INDIGESTION" Initial ECG Impression Date: Apr 07, 2019 Initial ECG Impression Time: 00:17 Initial ECG Rate: 76 Initial ECG Rhythm: Normal Sinus Diagnostic Imaging Comments CXR--MILD VASCULAR CONGESTION, PENDING RADIOLOGIST REVIEW Reviewed: Reviewed by Me Departure Communication (Admissions) [id number]--SPOKE WITH DR. RIVERA, HOSPITALIST, ACCEPTS PT FOR ADMIT. Impression Primary Impression: Chest pain Additional Impressions: CHF (congestive heart failure) Right leg swelling CAD WITH HX OF AK AND CABG AND ANGIOPLASTY GERD (gastroesophageal reflux disease) Chronic renal disease, stage 3, moderately decreased glomerular filtration rate (GFR) between 30-59 mL/min/1.73 square meter RECENT LOSS OF Metastatic melanoma Disposition: ADMITTED INPATIENT Condition: Improved Admissions Decision to Admit Reason: Admit from ER (General) Decision to Admit/Date: Apr 07, 2019 Time/Decision to Admit Time: 01:30 Departure-Patient Inst. Referrals: KARLA TRAVIS MD (PCP/Family) Primary Care Physician EILEEN GUNTER DO Apr 07, 2019 00:35
[2019-04-07 00:45] LABS: BASOPHILS % (AUTO) 1 % (0-10); EOSINOPHILS # (AUTO) 0.3 10^3/uL (0.0-0.3); EOSINOPHILS % (AUTO) 3 % (0-10); HEMATOCRIT 35 % (35-52); HEMOGLOBIN 11.8 G/DL (11.5-16.0); LYMPHOCYTES # (AUTO) 1.3 X 10^3 (1.0-4.0); LYMPHOCYTES % (AUTO) 18 % (12-44); MEAN CORPUSCULAR HEMOGLOBIN 32 PG (25-34); MEAN CORPUSCULAR HGB CONC 34 G/DL (32-36); MEAN CORPUSCULAR VOLUME 96 FL (80-99); MEAN PLATELET VOLUME 9.5 FL (7.4-10.4); MONOCYTES # (AUTO) 0.7 X 10^3 (0.0-1.0); MONOCYTES % (AUTO) 10 % (0-12); NEUTROPHILS # (AUTO) 4.9 X 10^3 (1.8-7.8); NEUTROPHILS % (AUTO) 68 % (42-75); PLATELET COUNT 199 10^3/uL (130-400); RED CELL DISTRIBUTION WIDTH 12.7 % (10.0-14.5); WHITE BLOOD COUNT 7.3 10^3/uL (4.3-11.0)
--- NOTE | 2019-04-07 00:50 | NUR ---
RADIOLOGY TO ROOM TO DO CXR
[2019-04-07 01:03] LABS: ALANINE AMINOTRANSFERASE 18 U/L (0-55); ALKALINE PHOSPHATASE 110 U/L (40-136); AMYLASE 68 U/L (25-125); BILIRUBIN,TOTAL 0.3 MG/DL (0.1-1.0); BUN/CREATININE RATIO 25; CALCIUM 9.3 MG/DL (8.5-10.1); CARBON DIOXIDE 21 MMOL/L (21-32); CHLORIDE 101 MMOL/L (98-107); CREATINE KINASE 45 U/L (29-168); CREATININE SERUM 1.39 MG/DL (0.60-1.30); GFR ESTIMATED 37; GLUCOSE 142 MG/DL (70-105); LIPASE 94 U/L (8-78); MAGNESIUM 2.2 MG/DL (1.6-2.4); POTASSIUM 3.8 MMOL/L (3.6-5.0); SODIUM 134 MMOL/L (135-145); TOTAL PROTEIN 6.4 GM/DL (6.4-8.2)
[2019-04-07 01:10] LABS: CREATINE KINASE MB 3.7 NG/ML (<6.6)
--- NOTE | 2019-04-07 01:18 | NUR ---
TO ROOM TO CHECK PATIENT, DENIES NEEDS AT THIS TIME, CALL LIGHT IN REACH WILL CONTINUE TO MONITOR.
[2019-04-07] MEDS ORDERED: ANTACID SUSP 30 ML UDC (MYLANTA) PO ONE (01:30)
[2019-04-07] MEDS ORDERED: FUROSEMIDE 40 MG/4 ML INJ (LASIX) IVP ONE (01:30)
[2019-04-07] MEDS ORDERED: ENOXAPARIN 80 MG/0.8 ML (LOVENOX) SYR SC ONE (01:30)
[2019-04-07] MEDS ORDERED: LIDOCAINE 2% VISCOUS 15 ML UDC PO ONE (01:30)
[2019-04-07] MEDS ORDERED: PANTOPRAZOLE 40 MG (PROTONIX) VIAL IV ONE (01:30)
[2019-04-07] MEDS ORDERED: morphine INJ 4 MG/ML 1 ML (VIAL/SYRINGE) IV PRN (04:00)
[2019-04-07] MEDS ORDERED: FUROSEMIDE 40 MG/4 ML INJ (LASIX) IV SCH (07:00)
--- NOTE | 2019-04-07 07:41 | Diagnostic Imaging Report ---
INDICATION: Chest pain. COMPARISON: 10/14/2017. TECHNIQUE: Single radiograph of the chest dated 04/07/2019. FINDINGS: Right-sided Port-A-Cath is again identified and stable. Postsurgical changes of a CABG. Surgical clips are again noted overlying the left axilla. The cardiac silhouette is within normal limits in size. No significant pulmonary vascular congestion. Low lung volumes, though the lungs appear clear. No significant pleural effusion. No pneumothorax. No acute osseous abnormality. IMPRESSION: Stable appearing examination demonstrating postsurgical changes. Low lung volumes. Dictated by: Dictated on workstation # [id number]
--- NOTE | 2019-04-07 07:50 | NUR ---
Dr Le notified of consult on pt,
[2019-04-07 08:19] LABS: BASOPHILS % (AUTO) 1 % (0-10); EOSINOPHILS # (AUTO) 0.2 10^3/uL (0.0-0.3); EOSINOPHILS % (AUTO) 4 % (0-10); HEMATOCRIT 38 % (35-52); HEMOGLOBIN 13.1 G/DL (11.5-16.0); LYMPHOCYTES # (AUTO) 1.3 X 10^3 (1.0-4.0); LYMPHOCYTES % (AUTO) 19 % (12-44); MEAN CORPUSCULAR HEMOGLOBIN 32 PG (25-34); MEAN CORPUSCULAR HGB CONC 34 G/DL (32-36); MEAN CORPUSCULAR VOLUME 95 FL (80-99); MEAN PLATELET VOLUME 9.2 FL (7.4-10.4); MONOCYTES # (AUTO) 0.7 X 10^3 (0.0-1.0); MONOCYTES % (AUTO) 10 % (0-12); NEUTROPHILS # (AUTO) 4.4 X 10^3 (1.8-7.8); NEUTROPHILS % (AUTO) 67 % (42-75); PLATELET COUNT 209 10^3/uL (130-400); RED CELL DISTRIBUTION WIDTH 12.5 % (10.0-14.5); WHITE BLOOD COUNT 6.7 10^3/uL (4.3-11.0)
--- NOTE | 2019-04-07 08:39 | Consultation-Cardiology ---
HPI-Cardiology Cardiology Consultation Date of Consultation 04/07/19 Date of Admission Time Seen by Provider: 08:36 Indication: Chest pain HPI 74-year-old lady with history of coronary artery disease, hypertension and hyperlipidemia. Reporting Chest pain, described as dull achiness all over her chest, took some nitroglycerin and reported some improvement, currently she is chest pain-free, EKG and cardiac enzymes did not show any acute abnormality. Reported history of occasional chest pain, has been under recent stress. No shortness of breath. No cough or sputum. No fever or chills. Had mild edema in the right lower extremity which is worse than usual, has history of chronic venous insufficiency Home Medications & Allergies Allergies: Coded Allergies: Tetanus Vaccines and Toxoid (Verified Allergy, Unknown, 04/07/19) choline fenofibrate (Verified Allergy, Unknown, 04/07/19) clindamycin (Verified Allergy, Unknown, RASH, 04/07/19) codeine (Verified Allergy, Unknown, 04/07/19) lisinopril (Verified Allergy, Unknown, RASH, 04/07/19) morphine (Verified Allergy, Unknown, 04/07/19) oxycodone (Verified Allergy, Unknown, 04/07/19) propoxyphene (Verified Allergy, Unknown, 04/07/19) Bnvjxwd-Rab-Lir Reductase Inhibitor (Unverified Adverse Reaction, Unknown, 04/07/19) SEVERE MUSCLE PAIN Home Medication List Reviewed: Yes AKH-Qmebye-Xbmkoo Hx Patient Social History Marital Status: Alcohol Use: Denies Use Recreational Drug Use: No Smoking Status: Never a Smoker 2nd Hand Smoke Exposure: No Recent Foreign Travel: No Recent Infectious Disease Expo: No Recent Hopitalizations: No Immunizations Up To Date Tetanus Booster (TDap): More than 5yrs Date of Pneumonia Vaccine: Jul 18, 2015 Date of Influenza Vaccine: Apr 24, 2018 Past Medical History Discussed below Family Medical History Significant Family History: CAD Over 55 Years Old Family History: Cancer 09 BROTHER, Onset:Unknown (lung ca) Dementia maternal grandmother, Onset:Unknown Family history: Breast disease paternal grandmother, Onset:Unknown (ca) Family history: Diabetes mellitus 03 MOTHER, Onset:Unknown Heart disease 03 MOTHER, Onset:Unknown Myocardial infarction 03 FATHER, Onset:50's - 60 Review of Systems-General Review of Systems Constitutional: no symptoms reported; No diaphoresis, No dizziness; malaise, weakness Respiratory: see HPI; No cough, No dyspnea on exertion, No hemoptysis, No orthopnea, No phlegm, No short of breath, No stridor, No wheezing, No other Cardiovascular: see HPI, chest pain, edema; No Hx of Intervention, No palpitations, No syncope, No vascular heart diseas, No other Gastrointestinal: see HPI Genitourinary: see HPI Musculoskeletal: see HPI Skin: no symptoms reported, see HPI Psychiatric/Neurological: No Symptoms Reported, See HPI Reviewed Test Results Reviewed Test Results Lab Laboratory Tests Test 04/07/19 00:25 04/07/19 08:02 Range/Units White Blood Count 7.3 6.7 4.3-11.0 10^3/uL Red Blood Count 3.65 L 4.04 L 4.35-5.85 10^6/uL Hemoglobin 11.8 13.1 11.5-16.0 G/DL Hematocrit 35 38 35-52 % Mean Corpuscular Volume 96 95 80-99 FL Mean Corpuscular Hemoglobin 32 32 25-34 PG Mean Corpuscular Hemoglobin Concent 34 34 32-36 G/DL Red Cell Distribution Width 12.7 12.5 10.0-14.5 % Platelet Count 199 209 130-400 10^3/uL Mean Platelet Volume 9.5 9.2 7.4-10.4 FL Neutrophils (%) (Auto) 68 67 42-75 % Lymphocytes (%) (Auto) 18 19 12-44 % Monocytes (%) (Auto) 10 10 0-12 % Eosinophils (%) (Auto) 3 4 0-10 % Basophils (%) (Auto) 1 1 0-10 % Neutrophils # (Auto) 4.9 4.4 1.8-7.8 X 10^3 Lymphocytes # (Auto) 1.3 1.3 1.0-4.0 X 10^3 Monocytes # (Auto) 0.7 0.7 0.0-1.0 X 10^3 Eosinophils # (Auto) 0.3 0.2 0.0-0.3 10^3/uL Basophils # (Auto) 0.0 0.0 0.0-0.1 10^3/uL Prothrombin Time 13.0 12.2-14.7 SEC INR Comment 1.0 0.8-1.4 Activated Partial Thromboplast Time 41 H 24-35 SEC Sodium Level 134 L 135-145 MMOL/L Potassium Level 3.8 3.6-5.0 MMOL/L Chloride Level 101 98-107 MMOL/L Carbon Dioxide Level 21 21-32 MMOL/L Anion Gap 12 5-14 MMOL/L Blood Urea Nitrogen 35 H 7-18 MG/DL Creatinine 1.39 H 0.60-1.30 MG/DL Estimat Glomerular Filtration Rate 37 BUN/Creatinine Ratio 25 Glucose Level 142 H 70-105 MG/DL Calcium Level 9.3 8.5-10.1 MG/DL Corrected Calcium 9.3 8.5-10.1 MG/DL Magnesium Level 2.2 1.6-2.4 MG/DL Total Bilirubin 0.3 0.1-1.0 MG/DL Aspartate Amino Transf (AST/SGOT) 20 5-34 U/L Alanine Aminotransferase (ALT/SGPT) 18 0-55 U/L Alkaline Phosphatase 110 40-136 U/L Total Creatine Kinase 45 29-168 U/L Creatine Kinase MB 3.7 <6.6 NG/ML Myoglobin 65.2 10.0-92.0 NG/ML Troponin I < 0.028 <0.028 NG/ML B-Type Natriuretic Peptide 469.3 H <100.0 PG/ML Total Protein 6.4 6.4-8.2 GM/DL Albumin 4.0 3.2-4.5 GM/DL Amylase Level 68 25-125 U/L Lipase 94 H 8-78 U/L Physical Exam Physical Exam Vital Signs Vital Signs - First Documented 04/07/19 00:14 Temp 36.4 Pulse 72 Resp 21 B/P (MAP) 164/84 (110) Pulse Ox 100 O2 Delivery Room Air Capillary Refill : Less Than 3 Seconds Height, Weight, BMI Height: 5'9.00" Weight: 176lbs. 3.5oz. 79.420263hc; 26.06 BMI Method:Stated General Appearance: No Apparent Distress, WD/WN Neck: Full Range of Motion, Normal Inspection, Non Tender, Supple; No Carotid B ruit, No JVD Respiratory: Chest Non Tender, Normal Breath Sounds, No Accessory Muscle Use, No Respiratory Distress Cardiovascular: Regular Rate, Rhythm, No JVD, Normal Peripheral Pulses, Systolic Murmur (?FAINT?) Gastrointestinal: Non Tender, Soft Extremity: Normal Range of Motion, Non Tender, No Calf Tenderness, Pedal Edema (1+ EDEMA RIGHT LOWER LEG/ANKLE; LOWER LEG VENOUS STASIS CHANGES AND SUPERFICIAL VARICOSITIES), Other (Posterior tibial artery is palpable bilaterally with diminished pulse, +1-2. 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 Had known history of coronary artery disease as described below. Conservative management is recommended no intervention is needed. Vertigo for which she is following with neurology and physical therapy - improving . 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 CAD with a h/o CABG in 2003 (FORDE not used (clipped) at the time of surgery. Last card cath of October 14, 2017 showed 99% to 100% mid-vessel stenosis of the left anterior descending artery to which successful balloon angioplasty was carried out in May 2017, the LAD is still patent with mod to mod severe vessel dz; 70% to 80% ostial and proximal stenosis of the second obtuse marginal branch of the left circumflex artery, total occlusion of the proximal right coronary artery. There was an occluded saphenous vein graft to left anterior descending artery and a patent saphenous vein graft to the distal right coronary artery. Left ventricular end-diastolic pressure was at the top limit of normal and LVEF was 50-55%. There was no significant mitral regurgitation and there was anterolateral hypokinesis History of chronic left ventricular diastolic dysfunction, chronic compensated, hypertensive heart disease. No change from baseline. No signs of decompensation at this time. Right lower extremity edema, mild, warm to touch, dorsalis pedis pulse is not palpable bilaterally, had diminished posterior tibial pulse but it is palpable bilaterally. Recommend FLORECITA with PVR as an outpatient History of chronic fatigue and vertigo. No change from baseline. CKD stage 3, monitor renal function Considerable wgt loss and mild to mod hyponatremia post treatment of melanoma Status-post fundoplication for hiatal hernia. Hypertension, continue home medication monitor Hyperlipidemia, intolerant to statin, we had a long discussion about other treatment, I recommended Claude as an outpatient, she will discuss it with Dr. Hill Intolerance to statin therapy. History of non-obstructive peripheral arterial disease. Mild carotid artery disease per ultrasonography of 09/26/18 Chronic bilateral leg swelling, likely related to venous insuff Relative intolerance to beta-blockers, but currently able to tolerate a low dose Echocardiogram from 06/07/17 showed LVEF 65-70%. Mild mitral annular calcification without evidenc of valvular stenosis. PASP 30 mmHg Clinical Quality Measures AMI/AHF: ASA po Prior to arrival: No DVT/VTE Risk/Contraindication: Risk Factor Score Per Nursin RFS Level Per Nursing on Admit: 4+=Very High CORBIN OLIVIER MD Apr 07, 2019 08:38
[2019-04-07 08:42] LABS: CHOLESTEROL 295 MG/DL (< 200); HDL CHOLESTEROL 74 MG/DL (40-60); TRIGLYCERIDES 105 MG/DL (<150); VLDL CHOLESTEROL 21 MG/DL (5-40)
[2019-04-07 08:44] LABS: ALBUMIN 4.4 GM/DL (3.2-4.5); BILIRUBIN,TOTAL 0.5 MG/DL (0.1-1.0); CALCIUM 10.1 MG/DL (8.5-10.1); CREATININE SERUM 1.31 MG/DL (0.60-1.30); POTASSIUM 3.3 MMOL/L (3.6-5.0)
[2019-04-07 08:49] LABS: BILIRUBIN,URINE NEGATIVE (NEGATIVE); CLARITY,URINE SLIGHTLY CLOUDY; GLUCOSE, URINE (UA) NEGATIVE (NEGATIVE); KETONES,URINE NEGATIVE (NEGATIVE); LEUKOCYTE ESTERASE ,URINE 2+ (NEGATIVE); NITRITE,URINE NEGATIVE (NEGATIVE); PH,URINE 7 (5-9); PROTEIN,URINE NEGATIVE (NEGATIVE); UROBILINOGEN,URINE NORMAL (NORMAL)
[2019-04-07 08:59] LABS: BACTERIA,URINE NEGATIVE /HPF; COLOR,URINE YELLOW; RBC,URINE TNTC /HPF
[2019-04-07] MEDS ORDERED: ASPIRIN E.C. 81 MG (ECOTRIN) TAB PO SCH (09:00)
[2019-04-07] MEDS ORDERED: CLOPIDOGREL 75 MG (PLAVIX) TABLET PO SCH (09:00)
[2019-04-07] MEDS ORDERED: ENOXAPARIN 40 MG/0.4 ML (LOVENOX) SYR SQ SCH (09:00)
[2019-04-07 09:05] LABS: PROTHROMBIN TIME PATIENT 13.9 SEC (12.2-14.7)
--- NOTE | 2019-04-07 10:18 | Discharge Instructions ---
Discharge Instructions Reconcile Patient Problems Problems Reviewed?: Yes Patient Instructions Patient Instructions Take medications as prescribed. Continue nitroglycerin for anginal symptoms. Follow up with Dr. Hill in about two weeks. Return to [facility] For: chest pain, dyspnea, or if you feel like you are getting worse. Activity & Diet Discharge Diet: Low Sodium Diet Activity as Tolerated: Yes PORSHA RIVERA MD Apr 07, 2019 10:18
--- NOTE | 2019-04-07 11:13 | Short Stay Summary-Hospitalist ---
History of Present Illness HPI/Chief Complaint Marlene Garcia is a 74-year-old female with past medical history of coronary artery disease and who presented with chest pain. She reported that she had substernal chest pressure which had no radiation and resolved with sublingual nitroglycerin. She did not have any associated nausea, vomiting, diaphoresis, or shortness of breath. Her EKG remained unchanged from her baseline and her troponin was negative. She was evaluated by cardiology and recommended to continue medical management. She will follow-up with Dr. Hill as an outpatient. It was recommended that she begin Repatha as an outpatient and Dr. Hill will begin this process. Source: patient Exam Limitations: no limitations Date Seen 04/07/19 Time Seen by a Provider: 09:00 Attending Physician Porsha Rivera MD PCP Ezra Palumbo MD Referring Physician Date of Admission Apr 07, 2019 at 01:30 Home Medications & Allergies Home Medications Reviewed patient Home Medication Reconciliation performed by pharmacy medication reconciliations commercial hvac service technician and/or nursing. Patients Allergies have been reviewed. Allergies Allergies Coded Allergies Tetanus Vaccines and Toxoid (Verified Allergy, Unknown, 04/07/19) choline fenofibrate (Verified Allergy, Unknown, 04/07/19) clindamycin (Verified Allergy, Unknown, RASH, 04/07/19) codeine (Verified Allergy, Unknown, 04/07/19) lisinopril (Verified Allergy, Unknown, RASH, 04/07/19) morphine (Verified Allergy, Unknown, 04/07/19) oxycodone (Verified Allergy, Unknown, 04/07/19) propoxyphene (Verified Allergy, Unknown, 04/07/19) Nrixftq-Ahx-Kca Reductase Inhibitor (Unverified Adverse Reaction, Unknown, 04/07/19) SEVERE MUSCLE PAIN Past Lixulhd-Zrmpqb-Fswsab Hx Past Med/Social Hx: Reviewed Nursing Past Med/Soc Hx Patient Social History Marrital Status: Alcohol Use: Denies Use Recreational Drug Use: No Smoking Status: Never a Smoker 2nd Hand Smoke Exposure: No Recent Foreign Travel: No Contact w/other who traveled: No Recent Hopitalizations: No Recent Infectious Disease Expo: No Immunizations Up To Date Tetanus Booster (TDap): More than 5yrs Pediatric: No Date of Pneumonia Vaccine: Jul 18, 2015 Date of Influenza Vaccine: Apr 24, 2018 Seasonal Allergies Seasonal Allergies: Yes Past Medical History Surgeries: Abdominal, Angioplasty, Breast, Cardiac, CABG, Gallbladder, Orthopedic Cardiac: Chronic Edema/Swelling, Coronary Artery Disease, Heart Attack, High Cholesterol, Hypertension, Peripheral Vascular Neurological: Vertigo : No Reproductive: No Sexually Transmitted Disease: No HIV/AIDS: No Female Reproductive Disorders: Denies Menopausal Genitourinary: Renal Failure Gastrointestinal: Gastroesophageal Reflux, Chronic Constipation, Polyps Musculoskeletal: Arthritis, Fibromyalgia, Chronic Back Pain Endocrine: Hypothyroidsim Loss of Vision: Bilateral Hearing Impairment: Denies Cancer: Skin, Breast, Melanoma Did You Recieve Any Treatments: Yes What Type of Treatment Did You: Chemotherapy, Radiation, Surgical Intervention Psychosocial: Anxiety, Depression History of Blood Disorders: Yes (ANEMIA) Adverse Reaction to Blood Bar: No (N/A) Family History Cancer 09 BROTHER, Onset:Unknown (lung ca) Dementia maternal grandmother, Onset:Unknown Family history: Breast disease paternal grandmother, Onset:Unknown (ca) Family history: Diabetes mellitus 03 MOTHER, Onset:Unknown Heart disease 03 MOTHER, Onset:Unknown Myocardial infarction 03 FATHER, Onset:50's - 60 CAD Over 55 Years Old Review of Systems Constitutional: no symptoms reported EENTM: no symptoms reported Respiratory: no symptoms reported Cardiovascular: chest pain Gastrointestinal: no symptoms reported Genitourinary: no symptoms reported Musculoskeletal: no symptoms reported Skin: no symptoms reported Psychiatric/Neurological: No Symptoms Reported Physical Exam Physical Exam Vital Signs Vital Signs - First Documented 04/07/19 00:14 Temp 36.4 Pulse 72 Resp 21 B/P (MAP) 164/84 (110) Pulse Ox 100 O2 Delivery Room Air Capillary Refill : Less Than 3 Seconds Height, Weight, BMI Height: 5'9.00" Weight: 176lbs. 3.5oz. 79.191891gn; 26.06 BMI Method:Stated General Appearance: No Apparent Distress, WD/WN HEENT: PERRL/EOMI, Pharynx Normal Neck: Normal Inspection, Supple Respiratory: Chest Non Tender, Normal Breath Sounds, No Accessory Muscle Use, No Respiratory Distress Cardiovascular: Regular Rate, Rhythm, No Edema, Systolic Murmur Gastrointestinal: Normal Bowel Sounds, Non Tender, Soft Extremity: Normal Inspection, Non Tender, Pedal Edema, Other (Posterior tibial artery is palpable bilaterally with diminished pulse, +1-2. Unable to palpate dorsalis pedis) Neurologic/Psychiatric: Alert, Oriented x3, No Motor/Sensory Deficits, Normal Mood/Affect Skin: Normal Color, Warm/Dry Results Results/Procedures Labs Laboratory Tests 04/07/19 00:25 04/07/19 08:02 Patient resulted labs reviewed. Short Stay Diagnosis Discharge Diagnosis-Short Stay Admission Diagnosis Chest pain Final Discharge Diagnosis Stable angina Conclusion Plan Coronary artery disease with stable angina Continue current medications including nitroglycerin for angina Follow-up with Dr. Hill as an outpatient Consider beginning Repatha for hypercholesterolemia Diagnosis/Problems Diagnosis/Problems (1) CAD (coronary artery disease) Status: Chronic Qualifiers: Qualified Codes: I25.118 - Atherosclerotic heart disease of [place] coronary artery with other forms of angina pectoris Clinical Quality Measures AMI/AHF: ASA po Prior to arrival: No DVT/VTE Risk/Contraindication: Risk Factor Score Per Nursin RFS Level Per Nursing on Admit: 4+=Very High PORSHA RIVERA MD Apr 07, 2019 11:13
--- NOTE | 2019-04-07 12:25 | NUR ---
KENNY KEYES demonstrates understanding of discharge instructions and accurately returns instructions upon questioning. Copy of Post-Discharge Instructions and Medication Discharge Instructions given to PT. KENNY KEYES is able to manage continuing needs after discharge. Patients belongings returned to PT. Skin dry and intact; no breakdown noted. Patient discharged from [facility] on 04/07/19 at 1225. KENNY KEYES left floor via , accompanied by STAFF.
[2019-04-07] MEDS ORDERED: ENOXAPARIN 80 MG/0.8 ML (LOVENOX) SYR SC SCH (13:00)
== END 2019-04-07 12:25 | disposition home or self-care (01) ==
LOC: EDUNIT# 00:14 → ER 00:16 → INTOOBSV 01:30 → 4TH 01:30
PROVIDERS: ADMIT Internal Medicine; ATTEND Internal Medicine
DX: I25.118 Atherosclerotic heart disease of native coronary artery with other forms of angina pectoris (principal); I25.2 Old myocardial infarction; E78.00 Pure hypercholesterolemia, unspecified; I73.9 Peripheral vascular disease, unspecified; I50.9 Heart failure, unspecified; I13.0 Hypertensive heart and chronic kidney disease with heart failure and stage 1 through stage 4 chronic kidney disease, or unspecified chronic kidney disease; N18.3 Chronic kidney disease, stage 3 (moderate); K21.9 Gastro-esophageal reflux disease without esophagitis; M19.90 Unspecified osteoarthritis, unspecified site; M79.7 Fibromyalgia; M54.9 Dorsalgia, unspecified; G89.29 Other chronic pain; E03.9 Hypothyroidism, unspecified; J30.9 Allergic rhinitis, unspecified; F41.8 Other specified anxiety disorders; Z88.5 Allergy status to narcotic agent; Z88.7 Allergy status to serum and vaccine; Z79.02 Long term (current) use of antithrombotics/antiplatelets; Z79.82 Long term (current) use of aspirin; Z95.1 Presence of aortocoronary bypass graft; Z92.3 Personal history of irradiation; Z22.1 Carrier of other intestinal infectious diseases; Z80.9 Family history of malignant neoplasm, unspecified; Z83.3 Family history of diabetes mellitus; Z82.49 Family history of ischemic heart disease and other diseases of the circulatory system
CPT/HCPCS: 36415; 51702; 71045; 80053; 80061; 81000; 82150; 82550; 82553; 83690; 83735; 83874; 83880; 84484; 85025; 85610; 85730; 93005; 93041; 96374

== ENCOUNTER 2019-07-17 10:48 | Outpatient (RCR) | payer MEDICARE, OTHER ==
[2019-05-29 10:32] LABS: BASOPHILS % (AUTO) 1 % (0-10); EOSINOPHILS # (AUTO) 0.4 10^3/uL (0.0-0.3); EOSINOPHILS % (AUTO) 7 % (0-10); HEMATOCRIT 39 % (35-52); HEMOGLOBIN 12.5 G/DL (11.5-16.0); LYMPHOCYTES # (AUTO) 0.9 X 10^3 (1.0-4.0); LYMPHOCYTES % (AUTO) 16 % (12-44); MEAN CORPUSCULAR HEMOGLOBIN 31 PG (25-34); MEAN CORPUSCULAR HGB CONC 32 G/DL (32-36); MEAN CORPUSCULAR VOLUME 97 FL (80-99); MEAN PLATELET VOLUME 9.3 FL (7.4-10.4); MONOCYTES # (AUTO) 0.6 X 10^3 (0.0-1.0); MONOCYTES % (AUTO) 11 % (0-12); NEUTROPHILS # (AUTO) 3.7 X 10^3 (1.8-7.8); NEUTROPHILS % (AUTO) 66 % (42-75); PLATELET COUNT 222 10^3/uL (130-400); RED CELL DISTRIBUTION WIDTH 12.6 % (10.0-14.5); WHITE BLOOD COUNT 5.7 10^3/uL (4.3-11.0)
[2019-05-29 10:55] LABS: ALBUMIN 4.2 GM/DL (3.2-4.5); BILIRUBIN,TOTAL 0.4 MG/DL (0.1-1.0); CALCIUM 9.5 MG/DL (8.5-10.1); CREATININE SERUM 1.17 MG/DL (0.60-1.30); POTASSIUM 4.3 MMOL/L (3.6-5.0); TOTAL PROTEIN 6.9 GM/DL (6.4-8.2)
[~2019-07-17 10:48] MED LIST changes: -CLON0.5T13 PO; +CLON0.5T4 PO; -METO-387 PO; +MTP25TSR PO; -TRAM50TA2 PO; +fentaNYL 15 MCG/3 ML NS SYRINGE (PACU) ONE
[2019-07-17 11:33] LABS: BASOPHILS % (AUTO) 0 % (0-10); EOSINOPHILS # (AUTO) 0.4 10^3/uL (0.0-0.3); EOSINOPHILS % (AUTO) 6 % (0-10); HEMATOCRIT 40 % (35-52); HEMOGLOBIN 13.1 G/DL (11.5-16.0); LYMPHOCYTES # (AUTO) 1.2 X 10^3 (1.0-4.0); LYMPHOCYTES % (AUTO) 18 % (12-44); MEAN CORPUSCULAR HEMOGLOBIN 32 PG (25-34); MEAN CORPUSCULAR HGB CONC 33 G/DL (32-36); MEAN CORPUSCULAR VOLUME 97 FL (80-99); MEAN PLATELET VOLUME 9.2 FL (7.4-10.4); MONOCYTES # (AUTO) 0.6 X 10^3 (0.0-1.0); MONOCYTES % (AUTO) 9 % (0-12); NEUTROPHILS # (AUTO) 4.6 X 10^3 (1.8-7.8); NEUTROPHILS % (AUTO) 67 % (42-75); PLATELET COUNT 240 10^3/uL (130-400); RED CELL DISTRIBUTION WIDTH 12.6 % (10.0-14.5); WHITE BLOOD COUNT 6.8 10^3/uL (4.3-11.0)
[2019-07-17 11:50] LABS: ALBUMIN 4.5 GM/DL (3.2-4.5); BILIRUBIN,TOTAL 0.3 MG/DL (0.1-1.0); CALCIUM 9.7 MG/DL (8.5-10.1); CREATININE SERUM 1.18 MG/DL (0.60-1.30); POTASSIUM 4.9 MMOL/L (3.6-5.0); TOTAL PROTEIN 6.8 GM/DL (6.4-8.2)
== END 2019-07-30 | disposition home or self-care (01) ==
LOC: ONC 10:48
PROVIDERS: ATTEND Internal Medicine Hematology & Oncology
DX: C43.59 Malignant melanoma of other part of trunk (principal); C77.3 Secondary and unspecified malignant neoplasm of axilla and upper limb lymph nodes; C79.89 Secondary malignant neoplasm of other specified sites; Z85.3 Personal history of malignant neoplasm of breast; I25.10 Atherosclerotic heart disease of native coronary artery without angina pectoris; I12.9 Hypertensive chronic kidney disease with stage 1 through stage 4 chronic kidney disease, or unspecified chronic kidney disease; N18.3 Chronic kidney disease, stage 3 (moderate); E78.5 Hyperlipidemia, unspecified; E03.9 Hypothyroidism, unspecified; Z79.899 Other long term (current) drug therapy; Z92.21 Personal history of antineoplastic chemotherapy; Z92.3 Personal history of irradiation; Z45.2 Encounter for adjustment and management of vascular access device
CPT/HCPCS: 36591; 80053; 83615; 85025; 96523

== ENCOUNTER 2019-07-19 09:30 | Outpatient (RCR) | payer MEDICARE, OTHER ==
[~2019-07-19 09:30] MED LIST changes: -fentaNYL 15 MCG/3 ML NS SYRINGE (PACU) ONE
== END 2019-08-10 13:33 | disposition home or self-care (01) ==
PROVIDERS: ATTEND Internal Medicine
DX: R39.15 Urgency of urination (principal); R32 Unspecified urinary incontinence; H40.9 Unspecified glaucoma; K21.9 Gastro-esophageal reflux disease without esophagitis; I51.9 Heart disease, unspecified; C43.9 Malignant melanoma of skin, unspecified; Z98.890 Other specified postprocedural states; Z85.3 Personal history of malignant neoplasm of breast

== ENCOUNTER 2019-11-19 13:02 | Outpatient (RCR) | payer MEDICARE, OTHER ==
[2019-08-28 11:05] LABS: BASOPHILS % (AUTO) 1 % (0-10); EOSINOPHILS # (AUTO) 0.5 10^3/uL (0.0-0.3); EOSINOPHILS % (AUTO) 9 % (0-10); HEMATOCRIT 41 % (35-52); HEMOGLOBIN 13.5 G/DL (11.5-16.0); LYMPHOCYTES # (AUTO) 1.1 X 10^3 (1.0-4.0); LYMPHOCYTES % (AUTO) 20 % (12-44); MEAN CORPUSCULAR HEMOGLOBIN 32 PG (25-34); MEAN CORPUSCULAR HGB CONC 33 G/DL (32-36); MEAN CORPUSCULAR VOLUME 97 FL (80-99); MEAN PLATELET VOLUME 9.2 FL (7.4-10.4); MONOCYTES # (AUTO) 0.5 X 10^3 (0.0-1.0); MONOCYTES % (AUTO) 9 % (0-12); NEUTROPHILS # (AUTO) 3.4 X 10^3 (1.8-7.8); NEUTROPHILS % (AUTO) 61 % (42-75); PLATELET COUNT 229 10^3/uL (130-400); RED CELL DISTRIBUTION WIDTH 13.1 % (10.0-14.5); WHITE BLOOD COUNT 5.5 10^3/uL (4.3-11.0)
[2019-08-28 11:30] LABS: ALBUMIN 4.4 GM/DL (3.2-4.5); BILIRUBIN,TOTAL 0.4 MG/DL (0.1-1.0); CALCIUM 9.7 MG/DL (8.5-10.1); CREATININE SERUM 1.07 MG/DL (0.60-1.30); TOTAL PROTEIN 7.1 GM/DL (6.4-8.2)
[2019-10-09 14:35] LABS: BASOPHILS # (AUTO) 0.1 10^3/uL (0.0-0.1); BASOPHILS % (AUTO) 1 % (0-10); EOSINOPHILS # (AUTO) 0.4 10^3/uL (0.0-0.3); EOSINOPHILS % (AUTO) 7 % (0-10); HEMATOCRIT 40 % (35-52); HEMOGLOBIN 13.2 G/DL (11.5-16.0); LYMPHOCYTES # (AUTO) 1.5 X 10^3 (1.0-4.0); LYMPHOCYTES % (AUTO) 26 % (12-44); MEAN CORPUSCULAR HEMOGLOBIN 32 PG (25-34); MEAN CORPUSCULAR HGB CONC 33 G/DL (32-36); MEAN CORPUSCULAR VOLUME 97 FL (80-99); MEAN PLATELET VOLUME 9.4 FL (7.4-10.4); MONOCYTES # (AUTO) 0.5 X 10^3 (0.0-1.0); MONOCYTES % (AUTO) 8 % (0-12); NEUTROPHILS # (AUTO) 3.3 X 10^3 (1.8-7.8); NEUTROPHILS % (AUTO) 58 % (42-75); PLATELET COUNT 228 10^3/uL (130-400); WHITE BLOOD COUNT 5.7 10^3/uL (4.3-11.0)
[2019-10-09 14:51] LABS: ALBUMIN 4.5 GM/DL (3.2-4.5); BILIRUBIN,TOTAL 0.3 MG/DL (0.1-1.0); CALCIUM 9.4 MG/DL (8.5-10.1); CREATININE SERUM 1.14 MG/DL (0.60-1.30); POTASSIUM 4.3 MMOL/L (3.6-5.0); TOTAL PROTEIN 7.2 GM/DL (6.4-8.2)
[2019-10-09 15:11] LABS: BILIRUBIN,URINE NEGATIVE (NEGATIVE); CLARITY,URINE CLEAR; COLOR,URINE YELLOW; GLUCOSE, URINE (UA) NEGATIVE (NEGATIVE); KETONES,URINE NEGATIVE (NEGATIVE); LEUKOCYTE ESTERASE ,URINE NEGATIVE (NEGATIVE); NITRITE,URINE NEGATIVE (NEGATIVE); PH,URINE 6.5 (5-9); PROTEIN,URINE NEGATIVE (NEGATIVE)
[2019-10-09 15:26] LABS: BACTERIA,URINE TRACE /HPF; RBC,URINE 0-2 /HPF; WBC,URINE 0-2 /HPF
[2019-10-09 15:27] LABS: AMORPHOUS SEDIMENT,UR MOD AMOR URATES /LPF; SQUAMOUS EPITHELIAL CELL,UR 0-2 /HPF
[~2019-11-19 13:02] MED LIST changes: +ACHYD1T PO; -HYDR-3820 PO; -MECL-106 PO; +MECL-149 PO; +ONDA-105 PO; -ONDA4TAB10 PO
[2019-11-19 13:25] LABS: BASOPHILS # (AUTO) 0.1 10^3/uL (0.0-0.1); BASOPHILS % (AUTO) 1 % (0-10); EOSINOPHILS # (AUTO) 0.6 10^3/uL (0.0-0.3); EOSINOPHILS % (AUTO) 9 % (0-10); HEMATOCRIT 39 % (35-52); HEMOGLOBIN 12.9 G/DL (11.5-16.0); LYMPHOCYTES # (AUTO) 1.3 X 10^3 (1.0-4.0); LYMPHOCYTES % (AUTO) 21 % (12-44); MEAN CORPUSCULAR HEMOGLOBIN 33 PG (25-34); MEAN CORPUSCULAR HGB CONC 33 G/DL (32-36); MEAN CORPUSCULAR VOLUME 98 FL (80-99); MEAN PLATELET VOLUME 9.3 FL (7.4-10.4); MONOCYTES # (AUTO) 0.5 X 10^3 (0.0-1.0); MONOCYTES % (AUTO) 8 % (0-12); NEUTROPHILS # (AUTO) 3.7 X 10^3 (1.8-7.8); NEUTROPHILS % (AUTO) 61 % (42-75); PLATELET COUNT 227 10^3/uL (130-400); WHITE BLOOD COUNT 6.2 10^3/uL (4.3-11.0)
[2019-11-19 13:41] LABS: ALBUMIN 4.3 GM/DL (3.2-4.5); BILIRUBIN,TOTAL 0.3 MG/DL (0.1-1.0); CREATININE SERUM 1.21 MG/DL (0.60-1.30); POTASSIUM 4.5 MMOL/L (3.6-5.0)
[2019-11-27] MEDS ORDERED: AMLO5TAB9 PO (15:42)
[2019-11-27] MEDS ORDERED: TR1C15 TP (15:42)
[2019-11-27] MEDS ORDERED: FAMO20TA3 PO (15:42)
[2019-11-27] MEDS ORDERED: FEXO-45 PO (15:42)
== END 2019-11-26 | disposition home or self-care (01) ==
LOC: ONC 13:02
PROVIDERS: ATTEND Internal Medicine Hematology & Oncology
DX: C43.59 Malignant melanoma of other part of trunk (principal); C77.3 Secondary and unspecified malignant neoplasm of axilla and upper limb lymph nodes; C79.89 Secondary malignant neoplasm of other specified sites; I25.10 Atherosclerotic heart disease of native coronary artery without angina pectoris; I12.9 Hypertensive chronic kidney disease with stage 1 through stage 4 chronic kidney disease, or unspecified chronic kidney disease; N18.3 Chronic kidney disease, stage 3 (moderate); E78.5 Hyperlipidemia, unspecified; E03.9 Hypothyroidism, unspecified; Z79.899 Other long term (current) drug therapy; Z92.21 Personal history of antineoplastic chemotherapy; Z92.3 Personal history of irradiation; Z85.3 Personal history of malignant neoplasm of breast
CPT/HCPCS: 36591; 80053; 81000; 83615; 85025

== ENCOUNTER 2019-11-27 13:05 | Day surgery (SDC) | payer MEDICARE, OTHER ==
[~2019-11-27] VITALS: Ht 175 cm; Wt 88.0 kg
[2019-11-27] VITALS (8 sets, daily range): BP systolic 138–172; BP diastolic 71–89
[2019-11-27] MEDS ORDERED: LIDOCAINE 1% INJ 20 ML 20 ML VIAL ONE (14:56)
[2019-11-27] MEDS ORDERED: HEParin (CATH LAB) 2,000 ML IV ONE (14:56)
[2019-11-27] MEDS ORDERED: NS IV 1000 ML 1,000 ML ONE (14:56)
[2019-11-27] MEDS ORDERED: NS IV 1000 ML 1,000 ML IV SCH ×2 (15:15→19:08)
[2019-11-27 15:41] LABS: HEMOGLOBIN 13.9 G/DL (11.5-16.0); MEAN PLATELET VOLUME 9.3 FL (7.4-10.4); RED CELL DISTRIBUTION WIDTH 13.2 % (10.0-14.5); WHITE BLOOD COUNT 7.1 10^3/uL (4.3-11.0)
[2019-11-27] MEDS ORDERED: FEXO-45 PO (15:42)
[2019-11-27] MEDS ORDERED: FAMO20TA3 PO (15:42)
[2019-11-27] MEDS ORDERED: TR1C15 TP (15:42)
[2019-11-27] MEDS ORDERED: AMLO5TAB9 PO (15:42)
[2019-11-27 15:55] LABS: PROTHROMBIN TIME PATIENT 13.1 SEC (12.2-14.7)
[2019-11-27 16:00] LABS: ALBUMIN 4.5 GM/DL (3.2-4.5); BILIRUBIN,TOTAL 0.3 MG/DL (0.1-1.0); CALCIUM 9.8 MG/DL (8.5-10.1); CREATININE SERUM 1.18 MG/DL (0.60-1.30); POTASSIUM 4.4 MMOL/L (3.6-5.0); TOTAL PROTEIN 7.4 GM/DL (6.4-8.2)
--- OUTSIDE RECORDS SUMMARY | 2019-11-27 16:03 | XMS REPORT | Encounter Summary ---
Author Author [facility] Organization [facility] Address Unknown Phone Unavailable Care Team Providers Care Ball Mill Operator Name Role Phone Ezra Palumbo MD PCP Carlene Gloria RN Unavailable Unavailable Toni Acosta MD Unavailable Reason for Visit * Reason Comments Follow Up 2 month 04/09/2019 follow up for epiretinal membrane right eye. Medication Update No eye medications in use. Vision Change She notes that while merissa ilene she sees better through the center of her trifocal the upper part is slightly ottoniel rred. She rarlely drives at night. Eye Pain She notes ocassional discom fort in the left eye sometimes in both eyes. No Complaint She reports no other concer ns or complaints about her eyes or her vision. FYI 03/17/2019. aramis rtly before her last appointment . Encounter Details Care Team Description Date Type Department Paul Iglesias MD [address] [facility] [address] [place] [address] Retinal edema (Primary Dx); Iridocyclitis, viral; Epiretinal membrane (ERM) of right eye 07/05/2019 Office Visit [facility] [address] [place] [address] Social History Date Tobacco Use Types Packs/Day Years Used Never Smoker Smokeless Tobacco: Never Used Drinks/Week oz/Week Comments Alcohol Use Rare Yes Sex Assigned at Date Recorded Not on file Industry Job Start Date Occupation Not on file Not on file Not on file Travel End Travel History Travel Start No recent travel history available. documented as of this encounter Last Filed Vital Signs Reading Time Taken Comments Vital Sign - - Blood Pressure - - Pulse - - Temperature - - Respiratory Rate - - Oxygen Saturation - - Inhaled Oxygen Concentration 78.9 kg (174 lb) 07/05/2019 10:22 AM [facility]ILD [facility] Weight 175.3 cm (5' 9") 07/05/2019 10:22 AM [facility] Height 25.7 07/05/2019 10:22 AM [facility] Body Mass Index documented in this encounter Progress Notes * Paul Iglesias MD - 07/05/2019 10:00 AM [facility] Marlene is a 74 y.o. female that had concerns including Follow Up (2 month follow up for epiretinal membrane right eye.); Medication Update (No eye medic ations in use.); Vision Change (She notes that while driving she sees better thr ough the center of her trifocal the upper part is slightly blurred. She rarlely drives at night.); Eye Pain (She notes ocassional discomfort in the left eye clare etimes in both eyes.); No Complaint (She reports no other concerns or complaints about her eyes or her vision.); and FYI ( 03/17/2019. shortly before her last appointment .). HPI, Assessment and Plan: There were no encounter diagnoses. Doing well, no disc omfort, floaters better, va stable fluid on lungs better. Has stopped prednisol one but continues acyclovir bid, ERM stable SD-OCT stable cont acyclovir reckm 4 mo D [facility] documented in this encounter Plan of Treatment Order Schedule Name Type Priority Associated Diag noses Ordered: 07/09/2019 SCAN COMP OPHTHAL DIAG Ophthalmology Routine Retinal edema IMG, POS SEG, RETINA Iridocyclitis, viral Epiretinal membrane (ERM) of right eye documented as of this encounter Visit Diagnoses Diagnosis Retinal edema Iridocyclitis, viral Unspecified iridocyclitis Epiretinal membrane (ERM) of right eye documented in this encounter
--- OUTSIDE RECORDS SUMMARY | 2019-11-27 16:03 | XMS REPORT | Clinical Summary ---
Author Author [facility] Organization [facility] Address Unknown Phone Unavailable Care Team Providers Care Sales Route Driver Helper Name Role Phone Ezra Palumbo MD PCP Carlene Gloria RN Unavailable Unavailable Toni Acosta MD Unavailable Source Comments Some departments are not documenting in the electronic medical record. If you d o not see the information that you expected, contact Release of Information in [facility] Information Management department at [phone] for further assistan ce in locating additional records.[facility] Allergies Comments Active Allergy Reactions Severity Noted Date Clindamycin RASH Medium 12/17/2014 Codeine NAUSEA ONLY Low Gabapentin DIZZINESS Low 03/14/2018 Lisinopril DIZZINESS Low Morphine NAUSEA ONLY Low Oxycodone NAUSEA ONLY Low 12/17/2014 Propoxyphene SEE COMMENTS Low Ayqzqoe-Tmk-Ikn Reductase MUSCLE PAIN Medium Inhibitors Tetanus And Diphtheria RASH Medium 015 Toxoids, Adsorbed, Adult Medications End Date Status Medication Sig Dispensed Refills Start Date Active hyoscyamine (ANASPAZ; Place 125 mcg 0 NULEV; SYMAX FASTABS; under tongue HYOMAX-FT; ED-SPAZ; every 4 hours OSCIMIN) 0.125 mg rapid as needed for dissolve tablet Cramps. Active pantoprazole DR Take 40 mg by 0 (PROTONIX) 40 mg tablet mouth daily. Active acyclovir (ZOVIRAX) 400 TK 1 T PO BID 1 mg tablet 8 Active clopiDOGrel (PLAVIX) 75 TK 1 T PO 3 mg tablet ONCE D 8 Active hyoscyamine sulfate TK 1 T PO 0 (LEVSIN) 0.125 mg tablet ONCE D 8 Active levothyroxine (SYNTHROID) TK 1 T PO D 3 09/15 75 mcg tablet 8 Active vemurafenib (ZELBORAF) Take 240 mg 0 240 mg tablet by mouth twice daily. Take with a large glass of water. Active prednisolone acetate Use one drop 5 mL 1 01/16 (PRED FORTE) 1 % in the right 8 ophthalmic suspension eye daily ora as directed Active ferrous sulfate (FEOSOL, Take 325 mg 0 FEROSUL) 325 mg (65 mg by mouth iron) tablet daily. Take on an empty stomach at least 1 hour before or 2 hours after food. Active venlafaxine XR (EFFEXOR 0 XR) 37.5 mg capsule 9 Active diazePAM (VALIUM) 2 mg 0 tablet 9 Active FLUAD 0924-1431 (65 YR ADM 0.5ML IM 0 01 UP)(PF) 45 mcg (15 mcg x UTD 9 3)/0.5 mL syrg Active gabapentin (NEURONTIN) Bedtime 0 100 mg capsule 6 Active HYDROcodone/acetaminophen Every 4HRS as 0 01/16 (NORCO) 5/325 mg tablet needed for 6 Pain Active meclizine (ANTIVERT) 25 Three Times A 0 mg tablet Day as needed for Dizziness Active metoprolol XL (TOPROL XL) Daily 0 09/17 25 mg extended release 8 tablet Active aspirin (THAO ASPIRIN) Daily 0 325 mg tablet Active clonazePAM (KLONOPIN) 0.5 Daily as 0 mg tablet needed for Anxiety Active atorvastatin (LIPITOR) 20 Take 20 mg by 0 mg tablet mouth every 48 hours. Active sucralfate (CARAFATE) 1 TK 1 T PO QID 0 gram tablet 9 Active Problems Problem Noted Date Epiretinal membrane (ERM) of right eye 02/08/2018 Vitritis of right eye 12/30/2017 Decreased visual acuity 12/30/2017 Retinal edema 10/11/2017 Iridocyclitis, viral 10/10/2017 Melanoma 01/02/2015 Overview: Now recurrent, metastatic Coronary artery disease 01/02/2015 Overview: Asymptomatic at this time. Hypothyroidism 01/02/2015 Overview: Euthyroid by history on exam today. Family History Medical History Relation Name Comments Cancer Brother Cancer-Lung Brother Cancer Brother Leukemia Hypertension Brother Diabetes Mother Hypertension Mother Stroke Mother Hypertension Sister Amblyopia Neg Hx Blindness Neg Hx Cataract Neg Hx Glaucoma Neg Hx Macular Degen Neg Hx Retinal Detachment Neg Hx Strabismus Neg Hx Thyroid Disease Neg Hx Relation Name Status Comments Brother Brother Mother Sister Social History Date Tobacco Use Types Packs/Day Years Used Never Smoker Smokeless Tobacco: Never Used Drinks/Week oz/Week Comments Alcohol Use Rare Yes Sex Assigned at Date Recorded Not on file Industry Job Start Date Occupation Not on file Not on file Not on file Travel End Travel History Travel Start No recent travel history available. Last Filed Vital Signs Reading Time Taken Comments Vital Sign 125/68 11/07/2018 2:18 PM CDT Blood Pressure 81 11/07/2018 2:18 PM CDT Pulse 36.6 C (97.9 F) 12/17/2014 11:35 AM CDT Temperature 20 12/17/2014 11:35 AM CDT Respiratory Rate 100% 12/17/2014 11:35 AM CDT Oxygen Saturation - - Inhaled Oxygen Concentration 78.9 kg (174 lb) 07/05/2019 10:22 AM DISH CARRIER Weight 175.3 cm (5' 9") 07/05/2019 10:22 AM DISH CARRIER Height 25.7 07/05/2019 10:22 AM DISH CARRIER Body Mass Index Plan of Treatment Health Maintenance Due Date Last Done Comments MEDICARE ANNUAL WELLNESS 1945 VISIT DTAP/TDAP VACCINES (1 - 1963 Tdap) HEPATITIS C SCREENING 1963 PHYSICAL (COMPREHENSIVE) 1963 EXAM BREAST CANCER SCREENING 1985 COLORECTAL CANCER 1995 SCREENING SHINGLES RECOMBINANT 1995 VACCINE (1 of 2) OSTEOPOROSIS 2010 SCREENING/MONITORING PNEUMONIA (PPSV23) 2010 VACCINE (1 of 1 - PPSV23) INFLUENZA VACCINE 04/17/2020 Results Not on filefrom Last 3 Months Insurance Type Payer Benefit Subscriber ID Effective Phone Address Plan / Dates Group Medicare MEDICARE MEDICARE xxxxxxxxxxx 2010-P PART A AND resent B Indemnity GENERIC COMMERCIAL GENERIC xxxxxxxx 2010-P COMMERCIAL resent -[phone] Advance Directives Patient Conduit Reamer Operator Explanation Type Date Recorded Advance Directive/DPOA
--- OUTSIDE RECORDS SUMMARY | 2019-11-27 16:09 | XMS REPORT | Continuity of Care Document ---
Author Organization Unknown Address Unknown Phone Unavailable Allergies Active Description Code Type Severity Reaction Onset Reported/Identified Relationship to Patient Clinical Status Yes Tetanus Vaccines Toxoid [id number] Drug Allergy Unknown N/A 02/09/2016 Yes choline fenofibrate [id number] Drug Allergy Unknown N/A 04/07/2019 Yes clindamycin [id number] Drug Aller gy Unknown RASH 04/07/2019 Yes codeine [id number] Drug Allergy Unknown N/A 04/07/2019 Yes lisinopril [id number] Drug Allerg y Unknown RASH 04/07/2019 Yes morphine [id number] Drug Allergy Unknown N/A 04/07/2019 Yes oxycodone [id number] Drug Allergy Unknown N/A 04/07/2019 Yes propoxyphene [id number] Drug Allergy Unknown N/A 04/07/2019 Yes Momwnff-Yur-Usg Reductase Inhibitor [id number] Drug Allergy Unknown N/A 04/07/2019 Yes Tetanus Vaccines and Toxoid [id number] Drug Allergy Unknown N/A 04/07/2019 Medications There is no data. Problems Date Dx Coded Attending Type Code Diagnosis Diagnosed By 06/16/1332 KARLA TRAVIS MD, Ot 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, UNSPECIFIED 06/16/1332 KARLA TRAVIS MD, Ot H40.9 UNSPECIFIED GLAUCOMA 06/16/1332 KARLA TRAVIS MD, Ot I51.9 HEART DISEASE, UNSPECIFIED 06/16/1332 KARLA TRAVIS MD, Ot K21.9 GASTRO-ESOPHAGEAL REFLUX DISEASE WITHOUT 06/16/1332 KARLA TRAVIS MD, Ot R32 UNSPECIFIED URINARY INCONTINENCE 06/16/1332 KARLA TRAVIS MD, Ot R39.1 5 URGENCY OF URINATION 06/16/1332 KARLA TRAVIS MD, Ot Z85.3 PERSONAL HISTORY OF MALIGNANT NEOPLASM O 06/16/1332 KARLA TRAVIS MD Ot Z98.8 90 OTHER SPECIFIED POSTPROCEDURAL STATES 06/16/1456 FRANCISCO ROLON Ot 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 06/16/1456 ОЛЬГАFRANCISCO Ot C77.3 SEC AND UNSP MALIG NEOPLASM OF [place] AN 06/16/1456 FRANCISCO ROLON Ot C79.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 06/16/1456 FRANCISCO ROLON Ot E03.9 HYPOTHYROIDISM, UNSPECIFIED 06/16/1456 FRANCISCO ROLON Ot E78.5 HYPERLIPIDEMIA, UNSPECIFIED 06/16/1456 FRANCISCO ROLON Ot I12.9 HYPERTENSIVE CHRONIC KIDNEY DISEASE W ST 06/16/1456 FRANCISCO ROLON Ot I25.10 ATHSCL HEART DISEASE OF [place] CORONARY 06/16/1456 FRANCISCO ROLON Ot N18.3 CHRONIC KIDNEY DISEASE, STAGE 3 (MODERAT 06/16/1456 FRANCISCO ROLON Ot R42 DIZZINESS AND GIDDINESS 06/16/1456 FRANCISCO ROLON Ot Z45.2 ENCOUNTER FOR ADJUSTMENT AND MANAGEMENT 06/16/1456 FRANCISCO ROLON Ot 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 06/16/1456 FRANCISCO ROLON Ot Z85.3 PERSONAL HISTORY OF MALIGNANT NEOPLASM O 06/16/1456 FRANCISCO ROLON Ot Z92.21 PERSONAL HISTORY OF ANTINEOPLASTIC CHEMO 06/16/1456 FRANCISCO ROLON Ot Z92.3 PERSONAL HISTORY OF IRRADIATION 06/16/1608 DARRYL POPE MD Ot 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, UNSPECIFIED 06/16/1608 DARRYL POPE MD Ot H81.90 UNSPECIFIED DISORDER OF VESTIBULAR FUNCT 06/16/1608 DARRYL POPE MD Ot Z85.3 PERSONAL HISTORY OF MALIGNANT NEOPLASM O 06/16/1608 DARRYL POPE MD Ot Z95.1 PRESENCE OF AORTOCORONARY BYPASS GRAFT 06/16/1638 FRANCISCO ROLON Ot 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 06/16/1638 FRANCISCO ROLON Ot Z79.899 OTHER [facility] (CURRENT) DRUG THERAPY 06/16/1638 FRANCISCO ROLON Ot Z85.3 PERSONAL HISTORY OF MALIGNANT NEOPLASM O 06/16/1638 FRANCISCO ROLON Ot Z92.3 PERSONAL HISTORY OF IRRADIATION 04/21/2010 Ot 272.4 04/21/2010 Ot 401.9 04/21/2010 Ot 414.01 04/21/2010 Ot 447.9 04/21/2010 Ot 729.81 04/21/2010 Ot V45.81 04/21/2010 Ot V45.89 04/21/2010 Ot V58.69 04/27/2010 Ot 386.11 04/27/2010 Ot 401.9 04/27/2010 Ot 723.1 04/27/2010 Ot V57.1 08/11/2010 Ot 401.9 08/11/2010 Ot 414.00 08/11/2010 Ot 530.81 08/11/2010 Ot 536.8 08/11/2010 Ot 564.01 08/11/2010 Ot V45.81 08/11/2010 Ot V58.66 08/11/2010 Ot V58.69 02/26/2012 Ot 873.42 OPE N WOUND OF FOREHEAD 02/26/2012 Ot E000.8 OTH ER EXTERNAL CAUSE STATUS 02/26/2012 Ot E849.0 ACC IDENT IN HOME 02/26/2012 Ot E888.9 FAL L NOS 08/29/2013 SHERRELL HOFFMAN, RIKA Bledsoe Ot 172.5 MALIG MELANOMA TRUNK 08/29/2013 SHERRELL HOFFMAN, RIKA Bledsoe Ot 196.3 MAL ELPIDIO LYMPH-AXILLA/ARM 08/29/2013 RIKA WYNNE MD Ot 216.5 BENIGN ELPIDIO SKIN TRUNK 08/29/2013 RIKA WYNNE MD Ot 702.19 OTHER SEBORRHEIC KERATOSIS 09/05/2013 RIAK WYNNE MD Ot 244.9 HYPOTHYROIDISM NOS 09/05/2013 RIKA WYNNE MD Ot 272.4 HYPERLIPIDEMIA NEC/NOS 09/05/2013 RIKA WYNNE MD Ot 401.9 HYPERTENSION NOS 09/05/2013 SHERRELL HOFFMAN, RIKA Bledsoe Ot 414.00 CORON ATHEROSCLER NOS TYPE VESSEL, NATIV 09/05/2013 RIKA WYNNE MD Ot 530.81 ESOPHAGEAL REFLUX 09/05/2013 RIKA WYNNE MD Ot 564.1 IRRITABLE BOWEL SYNDROME 09/05/2013 RIKA WYNNE MD Ot 715.90 OSTEOARTHROS NOS-UNSPEC 09/05/2013 RIKA WYNNE MD M Ot 724.5 BACKACHE NOS 09/05/2013 SHERRELL HOFFMAN, RIKA Bledsoe Ot 729.1 MYALGIA AND MYOSITIS NOS 09/05/2013 RIKA WYNNE MD Ot 780.60 FEVER, UNSPECIFIED 09/05/2013 RIKA WYNNE MD Ot 780.79 OTH MALAISE FATIGUE 09/05/2013 RIKA WYNNE MD Ot 787.01 NAUSEA WITH VOMITING 09/05/2013 RIKA WYNNE MD Ot 789.00 ABDOMINAL PAIN, UNSPECIFIED SITE 09/05/2013 RIKA WYNNE MD Ot 789.2 SPLENOMEGALY 09/05/2013 RIKA WYNNE MD Ot 998.13 SEROMA COMPLICAT A PROC 09/05/2013 RIKA WYNNE MD Ot V45.81 AORTOCORONARY BYPASS 09/05/2013 RIKA WYNNE MD Ot V45.82 PERCUTANEOUS TRANSLUM CORON ANGIOPLASTY 09/05/2013 RIKA WYNNE MD Ot V45.89 POSTSURGICAL STATES NEC 09/05/2013 RIKA WYNNE MD Ot V58.66 LONG-TERM (CURRENT) USE OF ASPIRIN 09/05/2013 RIKA WYNNE MD Ot V58.69 OTH MED,LT,CURRENT USE 12/23/2013 FRANCISCO ROLON Ot 172.5 MALIG MELANOMA TRUNK 12/23/2013 FRANCISCO ROLON Ot V10.3 HX OF BREAST MALIGNANCY 12/23/2013 FRANCISCO ROLON Ot V15.3 HX OF IRRADIATION 12/23/2013 FRANCISCO ROLON Ot V58.69 OTH MED,LT,CURRENT USE 12/23/2013 FRANCISCO ROLON Ot V87.41 PERSONAL HISTORY OF ANTINEOPLASTIC CHEMO 02/05/2014 LICHA CHAVARRIA WORK TICKET DISTRIBUTOR Ot 244 .9 HYPOTHYROIDISM NOS 02/05/2014 LICHA CHAVARRIA WORK TICKET DISTRIBUTOR Ot 412 OLD MYOCARDIAL INFARCT 02/05/2014 LICHA CHAVARRIA WORK TICKET DISTRIBUTOR Ot 729 .1 MYALGIA AND MYOSITIS NOS 02/05/2014 LICHA CHAVARRIA WORK TICKET DISTRIBUTOR Ot 787.02 NAUSEA ALONE 02/05/2014 LICHA CHAVARRIA APRN Ot 789.00 ABDOMINAL PAIN, UNSPECIFIED SITE 02/05/2014 CHAVARRIA, PETER J WORK TICKET DISTRIBUTOR Ot 789.01 ABDOMINAL PAIN, RIGHT UPPER QUADRANT 02/05/2014 LICHA CHAVARRIA WORK TICKET DISTRIBUTOR Ot 789.02 ABDOMINAL PAIN, LEFT UPPER QUADRANT 02/05/2014 LICHA CHAVARRIA WORK TICKET DISTRIBUTOR Ot 789.05 ABDOMINAL PAIN, PERIUMBILIC 02/05/2014 LICHA CHAVARRIA WORK TICKET DISTRIBUTOR Ot 789.06 ABDOMINAL PAIN, EPIGASTRIC 02/05/2014 LICHA CHAVARRIA WORK TICKET DISTRIBUTOR Ot V58.66 LONG-TERM (CURRENT) USE OF ASPIRIN 07/07/2014 ОЛЬГА, BOBAN N Ot 172.5 MALIG MELANOMA TRUNK 07/07/2014 ОЛЬГАDIANA MAEAN N Ot V10.3 HX OF BREAST MALIGNANCY 07/07/2014 ОЛЬГА, BOBAN N Ot V15.3 HX OF IRRADIATION 07/07/2014 ОЛЬГАDIANA MAEAN N Ot V58.69 OTH MED,LT,CURRENT USE 07/07/2014 ОЛЬГА BOBAN N Ot V87.41 PERSONAL HISTORY OF ANTINEOPLASTIC CHEMO 07/15/2014 ОЛЬГА BOBAN N Ot 172.5 07/15/2014 ОЛЬГА, BOBAN N Ot V10.3 07/15/2014 ОЛЬГА, BOBAN N Ot V15.3 07/15/2014 ОЛЬГА, BOBAN N Ot V58.69 07/15/2014 ОЛЬГА, BOBAN N Ot V87.41 07/22/2014 ОЛЬГА, BOBAN N Ot 172.5 07/22/2014 ОЛЬГА, BOBAN N Ot V10.3 07/22/2014 ОЛЬГА, BOBAN N Ot V15.3 07/22/2014 ОЛЬГА, BOBAN N Ot V58.69 07/22/2014 ОЛЬГА, BOBAN N Ot V87.41 07/23/2014 ОЛЬГА, BOBAN N Ot 172.5 07/23/2014 ОЛЬГА, BOBAN N Ot V10.3 07/23/2014 ОЛЬГА, BOBAN N Ot V15.3 07/23/2014 ОЛЬГА, BOBAN N Ot V58.69 07/23/2014 ОЛЬГА, BOBAN N Ot V87.41 08/17/2014 ОЛЬГА, BOBAN N Ot 172.9 08/17/2014 ОЛЬГА, BOBAN N Ot V10.3 09/11/2014 ОЛЬГА, BOBAN N Ot 172.5 09/11/2014 ОЛЬГА, BOBAN N Ot V10.3 09/11/2014 ОЛЬГА BOBAN N Ot V15.3 09/11/2014 ОЛЬГА, BOBAN N Ot V58.69 09/11/2014 ОЛЬГА, BOBAN N Ot V87.41 10/20/2014 ОЛЬГА, BOBAN N Ot 172.5 MALIG MELANOMA TRUNK 10/20/2014 FRANCISCO ROLON N Ot V10.3 HX OF BREAST MALIGNANCY 10/20/2014 FRANCISCO ROLON N Ot V15.3 HX OF IRRADIATION 10/20/2014 FRANCISCO ROLON N Ot V58.69 OT MED,LT,CURRENT USE 10/20/2014 FRANCISCO ROLON N Ot V87.41 PERSONAL HISTORY OF ANTINEOPLASTIC CHEMO 10/30/2014 EUGENIA YI S LATENT PRINT EXAMINER Ot 172.9 10/30/2014 KASSIDY HILAH S LATENT PRINT EXAMINER Ot 174.9 10/30/2014 EUGENIA YI S LATENT PRINT EXAMINER Ot 724.5 10/30/2014 YI, HILAH S LATENT PRINT EXAMINER Ot 172.9 10/30/2014 YI, HILAH S LATENT PRINT EXAMINER Ot 174.9 10/30/2014 KASSIDY HILAH S LATENT PRINT EXAMINER Ot 724.5 10/31/2014 ОЛЬГА, BOBAN N Ot 172.5 10/31/2014 ОЛЬГА, BOBAN N Ot V10.3 10/31/2014 ОЛЬГА, BOBAN N Ot V15.3 10/31/2014 ОЛЬГА, BOBAN N Ot V58.69 10/31/2014 ОЛЬГА, BOBAN N Ot V87.41 10/31/2014 ОЛЬГА, BOBAN N Ot 172.5 10/31/2014 ОЛЬГА, BOBAN N Ot V10.3 10/31/2014 ОЛЬГА, BOBAN N Ot V15.3 10/31/2014 ОЛЬГА, BOBAN N Ot V58.69 10/31/2014 ОЛЬГА, BOBAN N Ot V87.41 10/31/2014 YIEUGENIA S LATENT PRINT EXAMINER Ot 172.9 10/31/2014 YI HILAH S LATENT PRINT EXAMINER Ot 174.9 10/31/2014 YI HILAH S LATENT PRINT EXAMINER Ot 724.5 10/31/2014 ОЛЬГА, BOBAN N Ot 172.5 10/31/2014 ОЛЬГА, BOBAN N Ot V10.3 10/31/2014 ОЛЬГА, BOBAN N Ot V15.3 10/31/2014 ОЛЬГА, BOBAN N Ot V58.69 10/31/2014 ОЛЬГА, BOBAN N Ot V87.41 11/01/2014 ОЛЬГА, BOBAN N Ot 172.5 11/01/2014 ОЛЬГА, BOBAN N Ot V10.3 11/01/2014 ОЛЬГА, BOBAN N Ot V15.3 11/01/2014 ОЛЬГА, BOBAN N Ot V58.69 11/01/2014 ОЛЬГА, BOBAN N Ot V87.41 11/05/2014 ОЛЬГА, BOBAN N Ot 172.9 11/05/2014 ОЛЬГА, BOBAN N Ot 786.6 11/06/2014 ОЛЬГА, BOBAN N Ot 172.9 11/06/2014 ОЛЬГА, BOBAN N Ot 786.6 11/19/2014 YI, HILAH S LATENT PRINT EXAMINER Ot 172.5 11/19/2014 YI, HILAH S LATENT PRINT EXAMINER Ot V10.3 11/19/2014 YI, HILAH S LATENT PRINT EXAMINER Ot V15.3 11/19/2014 YI, HILAH S LATENT PRINT EXAMINER Ot V58.69 11/19/2014 YI, HILAH S LATENT PRINT EXAMINER Ot V87.41 11/19/2014 YI, HILAH S LATENT PRINT EXAMINER Ot 172.9 11/19/2014 YI, HILAH S LATENT PRINT EXAMINER Ot 174.9 11/19/2014 YI, HILAH S LATENT PRINT EXAMINER Ot 724.5 11/20/2014 ОЛЬГА, BOBAN N Ot 172.9 11/20/2014 ОЛЬГА, BOBAN N Ot 786.6 12/03/2014 ОЛЬГА, BOBAN N Ot 172.9 12/03/2014 ОЛЬГА, BOBAN N Ot 786.6 12/15/2014 ОЛЬГА, BOBAN N Ot 172.9 12/15/2014 ОЛЬГА, BOBAN N Ot 786.6 12/15/2014 YI, HILAH S LATENT PRINT EXAMINER Ot 172.9 12/15/2014 YI, HILAH S LATENT PRINT EXAMINER Ot 174.9 12/15/2014 YI, HILAH S LATENT PRINT EXAMINER Ot 724.5 12/18/2014 ОЛЬГА, BOBAN N Ot 172.9 12/18/2014 ОЛЬГА, BOBAN N Ot 786.6 12/18/2014 FRANCISCO ROLON N Ot 172.9 12/18/2014 FRANCISCO ROLON N Ot 786.6 01/08/2015 EUGENIA YI LATENT PRINT EXAMINER Ot 172.9 01/08/2015 EUGENIA YI LATENT PRINT EXAMINER Ot V58.69 01/08/2015 EUGENIA YI LATENT PRINT EXAMINER Ot V58.83 01/13/2015 KARLA TRAVIS MD Ot 172.5 MALIG MELANOMA TRUNK 01/13/2015 KARLA TRAVIS MD Ot 199.1 MALIGNANT NEOPLASM NOS 01/13/2015 KARLA TRAVIS MD Ot 244.9 HYPOTHYROIDISM NOS 01/13/2015 KARLA TRAVIS MD Ot 272.4 HYPERLIPIDEMIA NEC/NOS 01/13/2015 KARLA TRAVIS MD Ot 401.9 HYPERTENSION NOS 01/13/2015 KARLA TRAVIS MD Ot 414.0 0 CORON ATHEROSCLER NOS TYPE VESSEL, NATIV 01/13/2015 KARLA TRAVIS MD Ot 490 BRONCHITIS NOS 01/13/2015 KARLA TRAVIS MD Ot 530.8 1 ESOPHAGEAL REFLUX 01/13/2015 KARLA TRAVIS MD Ot 564.0 0 UNSPEC CONSTIPATION 01/13/2015 KARLA TRAVIS MD Ot 729.1 MYALGIA AND MYOSITIS NOS 01/13/2015 KARLA TRAVIS MD Ot 786.5 9 CHEST PAIN NEC 01/13/2015 KARLA TRAVIS MD Ot V45.8 1 AORTOCORONARY BYPASS 01/13/2015 KARLA TRAVIS MD Ot V58.6 6 LONG-TERM (CURRENT) USE OF ASPIRIN 01/13/2015 KARLA TRAVIS MD Ot V58.6 9 OTH MED,LT,CURRENT USE 01/13/2015 EUGENIA YI LATENT PRINT EXAMINER Ot 172.5 01/13/2015 EUGENIA YI LATENT PRINT EXAMINER Ot V10.3 01/13/2015 EUGENIA YI LATENT PRINT EXAMINER Ot V15.3 01/13/2015 EUGENIA YI LATENT PRINT EXAMINER Ot V58.69 01/13/2015 EUGENIA YI LATENT PRINT EXAMINER Ot V87.41 01/24/2015 EUGENIA YI LATENT PRINT EXAMINER Ot 172.5 01/24/2015 EUGENIA YI LATENT PRINT EXAMINER Ot 199.1 01/24/2015 EUGENIA YI LATENT PRINT EXAMINER Ot 786.2 01/24/2015 JUANITO YIAH S LATENT PRINT EXAMINER Ot V10.3 01/24/2015 YI EUGENIA S LATENT PRINT EXAMINER Ot V15.3 01/24/2015 YIEUGENIA Veras S LATENT PRINT EXAMINER Ot V58.69 01/24/2015 YIEUGENIA Veras S LATENT PRINT EXAMINER Ot V87.41 01/29/2015 FRANCISCO ROLON N Ot 172.5 MALIG MELANOMA TRUNK 01/29/2015 ОЛЬГА, FRANCISCO N Ot V10.3 HX OF BREAST MALIGNANCY 01/29/2015 ОЛЬГА, FRANCISCO N Ot V15.3 HX OF IRRADIATION 01/29/2015 FRANCISCO ROLON N Ot V58.69 OTH MED,LT,CURRENT USE 01/29/2015 DIANA ROLONAN N Ot V87.41 PERSONAL HISTORY OF ANTINEOPLASTIC CHEMO 01/30/2015 KASSIDY EUGENIA S LATENT PRINT EXAMINER Ot 172.9 01/30/2015 KASSIDY EUGENIA S LATENT PRINT EXAMINER Ot V58.69 01/30/2015 KASSIDY EUGENIA S LATENT PRINT EXAMINER Ot V58.83 02/05/2015 ОЛЬГА, BOBAN N Ot 172.5 02/05/2015 ОЛЬГА, BOBAN N Ot V10.3 02/05/2015 ОЛЬГА, BOBAN N Ot V15.3 02/05/2015 ОЛЬГА, BOBAN N Ot V58.69 02/05/2015 ОЛЬГАDIANA MAEAN N Ot V87.41 02/06/2015 YI EUGENIA S LATENT PRINT EXAMINER Ot 172.5 02/06/2015 KASSIDY EUGENIA S LATENT PRINT EXAMINER Ot V10.3 02/06/2015 KASSIDY EUGENIA S LATENT PRINT EXAMINER Ot V15.3 02/06/2015 YI EUGENIA S LATENT PRINT EXAMINER Ot V58.69 02/06/2015 KASSIDY EUGENIA S LATENT PRINT EXAMINER Ot V87.41 02/07/2015 ОЛЬГА BOBAN N Ot 172.5 02/07/2015 ОЛЬГА, BOBAN N Ot V10.3 02/07/2015 ОЛЬГА, BOBAN N Ot V15.3 02/07/2015 ОЛЬГА, BOBAN N Ot V58.69 02/07/2015 ОЛЬГА, BOBAN N Ot V87.41 02/07/2015 ANGY HOFFMAN, KARLA Horowitz Ot 272.4 02/07/2015 ANGY HOFFMAN, KARLA Horowitz Ot 401.9 02/07/2015 ANGY HOFFMAN, KARLA Horowitz Ot V58.6 9 02/10/2015 ОЛЬГА, BOBAN N Ot 172.5 02/10/2015 ОЛЬГА, BOBAN N Ot V10.3 02/10/2015 ОЛЬГА, BOBAN N Ot V15.3 02/10/2015 ОЛЬГА, BOBAN N Ot V58.69 02/10/2015 ОЛЬГА, BOBAN N Ot V87.41 02/10/2015 ANGY HOFFMAN, KARLA Horowitz Ot 272.4 02/10/2015 ANGY HOFFMAN, KARLA Horowitz Ot 401.9 02/10/2015 ANGY HOFFMAN, KARLA Horowitz Ot V58.6 9 02/13/2015 EUGENIA YI LATENT PRINT EXAMINER Ot 414.00 02/13/2015 EUGENIA YI S LATENT PRINT EXAMINER Ot V58.69 02/13/2015 EUGENIA YI S LATENT PRINT EXAMINER Ot V58.83 02/13/2015 ОЛЬГА, BOBAN N Ot 172.5 02/13/2015 ОЛЬГА, BOBAN N Ot V10.3 02/13/2015 ОЛЬГА, BOBAN N Ot V15.3 02/13/2015 ОЛЬГА, BOBAN N Ot V58.69 02/13/2015 ОЛЬГА, BOBAN N Ot V87.41 02/13/2015 ОЛЬГА, BOBAN N Ot 172.5 02/13/2015 ОЛЬГА, BOBAN N Ot V10.3 02/13/2015 ОЛЬГА, BOBAN N Ot V15.3 02/13/2015 ОЛЬГА, BOBAN N Ot V58.69 02/13/2015 ОЛЬГА, BOBAN N Ot V87.41 02/13/2015 ОЛЬГА, BOBAN N Ot 172.5 02/13/2015 ОЛЬГА, BOBAN N Ot V10.3 02/13/2015 ОЛЬГА, BOBAN N Ot V15.3 02/13/2015 ОЛЬГА, BOBAN N Ot V58.69 02/13/2015 ОЛЬГА, BOBAN N Ot V87.41 02/14/2015 EUGENIA YI S LATENT PRINT EXAMINER Ot 172.5 02/14/2015 EUGENIA YI LATENT PRINT EXAMINER Ot 199.1 02/14/2015 EUGENIA YI LATENT PRINT EXAMINER Ot 786.2 02/14/2015 EUGENIA YI S LATENT PRINT EXAMINER Ot V10.3 02/14/2015 YIEUGENIA Veras LATENT PRINT EXAMINER Ot V15.3 02/14/2015 YIEUGENIA Veras S LATENT PRINT EXAMINER Ot V58.69 02/14/2015 YIEUGENIA Veras S LATENT PRINT EXAMINER Ot V87.41 02/19/2015 YIEUGENIA Veras S LATENT PRINT EXAMINER Ot 172.5 02/19/2015 YIEUGENIA Veras S LATENT PRINT EXAMINER Ot 199.1 02/19/2015 YIEUGENIA Veras S LATENT PRINT EXAMINER Ot 511.9 02/19/2015 YIEUGENIA S LATENT PRINT EXAMINER Ot V10.3 02/19/2015 YIEUGENIA S LATENT PRINT EXAMINER Ot V15.3 02/19/2015 YIJUANITO S LATENT PRINT EXAMINER Ot V58.69 02/19/2015 YIEUGENIA Veras S LATENT PRINT EXAMINER Ot V87.41 02/24/2015 YIEUGENIA Veras S LATENT PRINT EXAMINER Ot 172.5 02/24/2015 YIEUGENIA Veras S LATENT PRINT EXAMINER Ot 199.1 02/24/2015 YIEUGENIA Veras S LATENT PRINT EXAMINER Ot V10.3 02/24/2015 YIEUGENIA Veras S LATENT PRINT EXAMINER Ot V15.3 02/24/2015 YIEUGENIA Veras S LATENT PRINT EXAMINER Ot V58.69 02/24/2015 YIEUGENIA Veras S LATENT PRINT EXAMINER Ot V87.41 03/03/2015 YIEUGENIA Veras S LATENT PRINT EXAMINER Ot 414.00 03/03/2015 YIEUGENIA Veras S LATENT PRINT EXAMINER Ot V58.69 03/03/2015 YI, HIL S LATENT PRINT EXAMINER Ot V58.83 03/05/2015 YIEUGENIA Veras S LATENT PRINT EXAMINER Ot 172.5 03/05/2015 YIEUGENIA Veras S LATENT PRINT EXAMINER Ot 199.1 03/05/2015 YIEUGENIA Veras S LATENT PRINT EXAMINER Ot 511.9 03/05/2015 YI, HIL S LATENT PRINT EXAMINER Ot V10.3 03/05/2015 YIEUGENIA S LATENT PRINT EXAMINER Ot V15.3 03/05/2015 YIEUGENIA S LATENT PRINT EXAMINER Ot V58.69 03/05/2015 YIEUGENIA S LATENT PRINT EXAMINER Ot V87.41 03/06/2015 YIEUGENIA S LATENT PRINT EXAMINER Ot 172.5 03/06/2015 YIJUANITO S LATENT PRINT EXAMINER Ot 199.1 03/06/2015 EUGENIA YI LATENT PRINT EXAMINER Ot 511.9 03/06/2015 EUGENIA YI LATENT PRINT EXAMINER Ot V10.3 03/06/2015 EUGENIA YI LATENT PRINT EXAMINER Ot V15.3 03/06/2015 EUGENIA YI LATENT PRINT EXAMINER Ot V58.69 03/06/2015 EUGENIA YI LATENT PRINT EXAMINER Ot V87.41 03/21/2015 EUGENIA YI LATENT PRINT EXAMINER Ot 172.5 03/21/2015 EUGENIA YI LATENT PRINT EXAMINER Ot 199.1 03/21/2015 EUGENIA YI LATENT PRINT EXAMINER Ot 511.9 03/21/2015 EUGENIA YI LATENT PRINT EXAMINER Ot V10.3 03/21/2015 EUGENIA YI LATENT PRINT EXAMINER Ot V15.3 03/21/2015 EUGENIA YI LATENT PRINT EXAMINER Ot V58.69 03/21/2015 EUGENIA YI LATENT PRINT EXAMINER Ot V87.41 03/24/2015 Ot 172.9 03/24/2015 Ot V76.12 04/08/2015 FRANCISCO ROLON N Ot 172.5 04/08/2015 ОЛЬГАFRANCISCO MAE N Ot V10.3 04/08/2015 ОЛЬГАFRANCISCO MAE N Ot V15.3 04/08/2015 ОЛЬГАFRANCISCO MAE N Ot V58.69 04/08/2015 FRANCISCO ROLON N Ot V87.41 04/08/2015 Ot 172.9 04/08/2015 Ot V76.12 04/16/2015 ОЛЬГА, BOBPAPA N Ot 172.5 MALIG MELANOMA TRUNK 04/16/2015 ОЛЬГАFRANCISCO N Ot V10.3 HX OF BREAST MALIGNANCY 04/16/2015 ОЛЬГА BOBAN N Ot V15.3 HX OF IRRADIATION 04/16/2015 ОЛЬГАFRANCISCO MAE N Ot V58.69 OTH MED,LT,CURRENT USE 04/16/2015 ОЛЬГАFRANCISCO MAE N Ot V87.41 PERSONAL HISTORY OF ANTINEOPLASTIC CHEMO 05/14/2015 KARLA TRAVIS MD Ot C77.3 05/14/2015 KARLA TRAVIS MD Ot E87.1 05/14/2015 KARLA TRAVIS MD Ot G44.4 0 05/14/2015 KARLA TRAVIS MD Ot I10 05/14/2015 KARLA TRAVIS MD Ot I25.1 0 05/14/2015 ANGY HOFFMAN, KARLA Horowitz Ot K52.1 05/14/2015 ANGY HOFFMAN, KARLA Horowitz Ot M79.1 05/14/2015 ANGY HOFFMAN, KARLA Horowitz Ot R11.2 05/14/2015 ANGY HOFFMAN, KARLA Horowitz Ot R42 05/14/2015 KARLA TRAVIS MD Ot R50.2 05/14/2015 KARLA TRAVIS MD Ot T45.1X5A 05/14/2015 KARLA TRAVIS MD Ot Z85.3 05/14/2015 KARLA TRAVIS MD Ot Z85.8 20 05/14/2015 KARLA TRAVIS MD Ot Z92.3 05/14/2015 KARLA TRAVIS MD Ot Z95.1 05/14/2015 KARLA TRAVIS MD Ot Z95.5 05/14/2015 KARLA TRAVIS MD Ot C77.3 05/14/2015 KARLA TRAVIS MD Ot E87.1 05/14/2015 KARLA TRAVIS MD Ot G44.4 0 05/14/2015 KARLA TRAVIS MD Ot I10 05/14/2015 KARLA TRAVIS MD Ot I25.1 0 05/14/2015 KARLA TRAVIS MD Ot K52.1 05/14/2015 KARLA TRAVIS MD Ot M79.1 05/14/2015 KARLA TRAVIS MD Ot R11.2 05/14/2015 KARLA TRAVIS MD Ot R42 05/14/2015 KARLA TRAVIS MD Ot R50.2 05/14/2015 KARLA TRAVIS MD Ot T45.1X5A 05/14/2015 KARLA TRAVIS MD Ot Z85.3 05/14/2015 KARLA TRAVIS MD Ot Z85.8 20 05/14/2015 KARLA TRAVIS MD Ot Z92.3 05/14/2015 KARLA TRAVIS MD Ot Z95.1 05/14/2015 KARLA TRAVIS MD Ot Z95.5 05/15/2015 KARLA TRAVIS MD Ot C77.3 05/15/2015 KARLA TRAVIS MD Ot E87.1 05/15/2015 KARLA TRAVIS MD Ot G44.4 0 05/15/2015 KARLA TRAVIS MD Ot I10 05/15/2015 KARLA TRAVIS MD Ot I25.1 0 05/15/2015 KARLA TRAVIS MD Ot K52.1 05/15/2015 KARLA TRAVIS MD, Ot M79.1 05/15/2015 KARLA TRAVIS MD, Ot R11.2 05/15/2015 KARLA TRAVIS MD, Ot R42 05/15/2015 KARLA TRAVIS MD, Ot R50.2 05/15/2015 KARLA TRAVIS MD, Ot T45.1X5A 05/15/2015 KARLA TRAVIS MD, Ot Z85.3 05/15/2015 KARLA TRAVIS MD, Ot Z85.8 20 05/15/2015 KARLA TRAVIS MD, Ot Z92.3 05/15/2015 KARLA TRAVIS MD, Ot Z95.1 05/15/2015 KARLA TRAVIS MD, Ot Z95.5 05/20/2015 EUGENIA YI LATENT PRINT EXAMINER Ot C43.9 05/22/2015 KARLA TRAVIS MD, Ot B00.4 HERPESVIRAL ENCEPHALITIS 05/22/2015 KARLA TRAVIS MD, Ot C77.3 SEC AND UNSP MALIG NEOPLASM OF [place] 05/22/2015 KARLA TRAVIS MD, Ot D64.9 ANEMIA, UNSPECIFIED 05/22/2015 KARLA TRAVIS MD, Ot E87.1 HYPO-OSMOLALITY AND HYPONATREMIA 05/22/2015 KARLA TRAVIS MD, Ot E88.0 9 OTH DISORDERS OF PLASMA-PROTEIN METABOLI 05/22/2015 KARLA TRAVIS MD, Ot G44.4 0 DRUG-INDUCED HEADACHE, NEC, NOT INTRACTA 05/22/2015 KARLA TRAVIS MD Ot I10 ESSENTIAL (PRIMARY) HYPERTENSION 05/22/2015 KARLA TRAVIS MD, Ot I25.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 05/22/2015 KARLA TRAVIS MD, Ot K52.1 TOXIC GASTROENTERITIS AND COLITIS 05/22/2015 KARLA TRAVIS MD, Ot K59.0 0 CONSTIPATION, UNSPECIFIED 05/22/2015 KARLA TRAVIS MD, Ot M79.1 MYALGIA 05/22/2015 KARLA TRAVIS MD, Ot N17.0 ACUTE KIDNEY FAILURE WITH TUBULAR NECROS 05/22/2015 KARLA TRAVIS MD, Ot R11.2 NAUSEA WITH VOMITING, UNSPECIFIED 05/22/2015 KARLA TRAVIS MD, Ot R42 DIZZINESS AND GIDDINESS 05/22/2015 KARLA TRAVIS MD, Ot R50.2 DRUG INDUCED FEVER 05/22/2015 KARLA TRAVIS MD, Ot T45.1X5A ADVERSE EFFECT OF ANTINEOPLASTIC AND IMM 05/22/2015 KARLA TRAVIS MD Ot Z85.3 PERSONAL HISTORY OF MALIGNANT NEOPLASM O 05/22/2015 KARLA TRAVIS MD Ot Z85.8 20 PERSONAL HISTORY OF MALIGNANT MELANOMA O 05/22/2015 KARLA TRAVIS MD Ot Z92.3 PERSONAL HISTORY OF IRRADIATION 05/22/2015 KARLA TRAVIS MD Ot Z95.1 PRESENCE OF AORTOCORONARY BYPASS GRAFT 05/22/2015 KARLA TRAVIS MD Ot Z95.5 PRESENCE OF CORONARY ANGIOPLASTY IMPLANT 05/23/2015 KARLA TRAVIS MD Ot B00.4 05/23/2015 KARLA TRAVIS MD Ot C77.3 05/23/2015 KARLA TRAVIS MD Ot D64.9 05/23/2015 KARLA TRAVIS MD Ot E46 05/23/2015 KARLA TRAVIS MD Ot E87.1 05/23/2015 KARLA TRAVIS MD Ot E88.0 9 05/23/2015 KARLA TRAVIS MD Ot G44.4 0 05/23/2015 KARLA TRAVIS MD Ot I10 05/23/2015 KARLA TRAVIS MD Ot I25.1 0 05/23/2015 KARLA TRAVIS MD Ot K52.1 05/23/2015 KARLA TRAVIS MD Ot K59.0 0 05/23/2015 KARLA TRAVIS MD Ot M79.1 05/23/2015 KARLA TRAVIS MD Ot N17.0 05/23/2015 KARLA TRAVIS MD Ot R09.8 9 05/23/2015 KARLA TRAVIS MD Ot R11.2 05/23/2015 KARLA TRAVIS MD Ot R42 05/23/2015 KARLA TRAVIS MD Ot R50.2 05/23/2015 KARLA TRAVIS MD Ot R53.8 1 05/23/2015 KARLA TRAVIS MD Ot T45.1X5A 05/23/2015 KARLA TRAVIS MD Ot Z85.3 05/23/2015 KARLA TRAVIS MD Ot Z85.8 20 05/23/2015 KARLA TRAVIS MD Ot Z92.3 05/23/2015 KARLA TRAVIS MD Ot Z95.1 05/23/2015 KARLA TRAVIS MD Ot Z95.5 05/26/2015 EUGENIA YI LATENT PRINT EXAMINER Ot 172.5 05/26/2015 EUGENIA YI LATENT PRINT EXAMINER Ot 199.1 05/26/2015 EUGENIA YI LATENT PRINT EXAMINER Ot V10.3 05/26/2015 YIEUGENIA Veras LATENT PRINT EXAMINER Ot V15.3 05/26/2015 YIEUGENIA Veras LATENT PRINT EXAMINER Ot V58.69 05/26/2015 EUGENIA YI LATENT PRINT EXAMINER Ot V87.41 05/28/2015 Ot C43.9 06/02/2015 KARLA TRAVIS MD, Ot B00.4 HERPESVIRAL ENCEPHALITIS 06/02/2015 KARLA TRAVIS MD Ot C77.3 SEC AND UNSP MALIG NEOPLASM OF [place] 06/02/2015 KARLA TRAVIS MD, Ot D64.9 ANEMIA, UNSPECIFIED 06/02/2015 KARLA TRAVIS MD, Ot E46 UNSPECIFIED PROTEIN-CALORIE MALNUTRITION 06/02/2015 KARLA TRAVIS MD, Ot E87.1 HYPO-OSMOLALITY AND HYPONATREMIA 06/02/2015 KARLA TRAVIS MD, Ot E87.7 0 FLUID OVERLOAD, UNSPECIFIED 06/02/2015 KARLA TRAVIS MD, Ot E88.0 9 06/02/2015 KARLA TRAVIS MD, Ot G44.4 0 06/02/2015 KARLA TRAVIS MD, Ot I10 ESSENTIAL (PRIMARY) HYPERTENSION 06/02/2015 KARLA TRAVIS MD, Ot I25.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 06/02/2015 KARLA TRAVIS MD Ot K52.1 06/02/2015 KARLA TRAVIS MD, Ot K59.0 0 CONSTIPATION, UNSPECIFIED 06/02/2015 KARLA TRAVIS MD Ot K92.2 GASTROINTESTINAL HEMORRHAGE, UNSPECIFIED 06/02/2015 KARLA TRAVIS MD Ot M79.1 06/02/2015 KARLA TRAVIS MD, Ot N17.0 06/02/2015 KARLA TRAVIS MD, Ot R09.8 9 06/02/2015 KARLA TRAVIS MD, Ot R11.2 06/02/2015 KARLA TRAVIS MD, Ot R42 06/02/2015 KARLA TRAVIS MD, Ot R50.2 06/02/2015 KARLA TRAVIS MD, Ot R53.8 1 OTHER MALAISE 06/02/2015 KARLA TRAVIS MD, Ot T45.1X5A 06/02/2015 KARLA TRAVIS MD Ot Z85.3 PERSONAL HISTORY OF MALIGNANT NEOPLASM O 06/02/2015 KARLA TRAVIS MD, Ot Z85.8 20 06/02/2015 KARLA TRAVIS MD Ot Z92.3 PERSONAL HISTORY OF IRRADIATION 06/02/2015 KARLA TRAVIS MD Ot Z95.1 PRESENCE OF AORTOCORONARY BYPASS GRAFT 06/02/2015 KARLA TRAVIS MD Ot Z95.5 PRESENCE OF CORONARY ANGIOPLASTY IMPLANT 06/05/2015 EUGENIA YI Ot C43.9 06/16/2015 Ot C43.9 06/16/2015 FRANCISCO ROLON Ot 172.5 06/16/2015 FRANCISCO ROLON Ot V10.3 06/16/2015 FRANCISCO ORLON Ot V15.3 06/16/2015 FRANCISCO ROLON Ot V58.69 06/16/2015 FRANCISCO ROLON Ot V87.41 07/07/2015 Ot 241.0 07/07/2015 Ot V10.3 07/07/2015 Ot V58.69 07/07/2015 Ot V67.1 07/07/2015 Ot V67.2 07/07/2015 Ot 174.9 07/07/2015 Ot V76.11 07/07/2015 Ot 564.00 07/07/2015 Ot 789.00 07/07/2015 Ot V10.3 07/07/2015 Ot V58.66 07/07/2015 Ot V58.69 07/07/2015 Ot V67.1 07/07/2015 Ot V67.2 07/07/2015 Ot 530.3 07/07/2015 Ot 786.2 07/07/2015 Ot V76.12 07/07/2015 Ot 702.0 07/07/2015 Ot 702.19 07/07/2015 Ot 789.00 07/07/2015 Ot V10.3 07/07/2015 Ot V58.66 07/07/2015 Ot V58.69 07/07/2015 Ot V67.1 07/07/2015 Ot V67.2 07/07/2015 Ot 174.9 07/07/2015 Ot V76.11 07/07/2015 Ot 375.15 07/07/2015 Ot 527.7 07/07/2015 Ot V10.3 07/07/2015 Ot V58.69 07/07/2015 Ot V67.1 07/07/2015 Ot V67.2 07/07/2015 Ot 719.46 07/07/2015 Ot 473.9 07/07/2015 Ot 780.4 07/07/2015 Ot V10.3 07/07/2015 LEEGILBERT APRN Ot V76.12 07/07/2015 SUNDEEPALEXSANDER ESCUDERO Cheng LATENT PRINT EXAMINER Ot 414.00 07/07/2015 SUNDEEPALEXSANDER ESCUDERO Cheng LATENT PRINT EXAMINER Ot 786.09 07/07/2015 CHERYL ALEXSANDER L LATENT PRINT EXAMINER Ot V45.81 07/07/2015 FRANCISCO ROLON N Ot 174.9 07/07/2015 SHERRELL HOFFMAN, RIKA M Ot 172.5 07/07/2015 SHERRELL HOFFMAN, RIKA M Ot 709.9 07/07/2015 SHERRELL HOFFMAN, RIKA M Ot V72.63 07/07/2015 SHERRELL HOFFMAN, RIKA M Ot V74.8 07/07/2015 FRANCISCO ROLON N Ot 172.5 07/07/2015 EUGENIA YI S LATENT PRINT EXAMINER Ot 172.5 07/07/2015 EUGENIA YI S LATENT PRINT EXAMINER Ot 724.2 07/07/2015 JUANITO YIAH S LATENT PRINT EXAMINER Ot 781.2 07/07/2015 KASSIDY JUANITOAH S LATENT PRINT EXAMINER Ot 784.0 07/07/2015 EUGENIA YI S LATENT PRINT EXAMINER Ot V10.3 07/07/2015 JUANITO YIAH S LATENT PRINT EXAMINER Ot V15.3 07/07/2015 YI, HILAH S LATENT PRINT EXAMINER Ot V58.69 07/07/2015 YI, JUANITOAH S LATENT PRINT EXAMINER Ot V87.41 07/07/2015 YI, HILAH S LATENT PRINT EXAMINER Ot 172.9 07/07/2015 JUANITO YIAH S LATENT PRINT EXAMINER Ot 781.2 07/07/2015 KASSIDY HILAH S LATENT PRINT EXAMINER Ot 784.0 07/07/2015 YI, HILAH S LATENT PRINT EXAMINER Ot 794.9 07/07/2015 YIEUGENIA Veras S LATENT PRINT EXAMINER Ot V76.12 07/07/2015 Ot 172.9 07/07/2015 Ot V76.12 07/07/2015 FRANCISCO ROLON N Ot 172.9 07/07/2015 FRANCISCO ROLON Ot V10.3 07/07/2015 ANGY HOFFMAN, KARLA Horowitz Ot 719.4 7 07/07/2015 EUGENIA YI S LATENT PRINT EXAMINER Ot 172.5 07/07/2015 YIEUGENIA Veras S LATENT PRINT EXAMINER Ot V10.3 07/07/2015 YIEUGENIA S LATENT PRINT EXAMINER Ot V15.3 07/07/2015 YIEUGENIA Veras S LATENT PRINT EXAMINER Ot V58.69 07/07/2015 YIEUGENIA Veras S LATENT PRINT EXAMINER Ot V87.41 07/07/2015 YIEUGENIA S LATENT PRINT EXAMINER Ot 172.9 07/07/2015 YIEUGENIA S LATENT PRINT EXAMINER Ot 174.9 07/07/2015 YIEUGENIA S LATENT PRINT EXAMINER Ot 724.5 07/07/2015 YIEUGENIA S LATENT PRINT EXAMINER Ot 172.9 07/07/2015 YIEUGENIA S LATENT PRINT EXAMINER Ot 174.9 07/07/2015 YIEUGENIA Veras S LATENT PRINT EXAMINER Ot 724.5 07/07/2015 FRANCISCO ROLON N Ot 172.9 07/07/2015 FRANCISCO ROLON N Ot 786.6 07/07/2015 YIEUGENIA Veras S LATENT PRINT EXAMINER Ot 172.9 07/07/2015 YIEUGENIA Veras S LATENT PRINT EXAMINER Ot V58.69 07/07/2015 YIEUGENIA S LATENT PRINT EXAMINER Ot V58.83 07/07/2015 YIEUGENIA Veras S LATENT PRINT EXAMINER Ot 172.5 07/07/2015 YIEUGENIA Veras S LATENT PRINT EXAMINER Ot V10.3 07/07/2015 KASSIDYEUGENIA S LATENT PRINT EXAMINER Ot V15.3 07/07/2015 YIEUGENIA S LATENT PRINT EXAMINER Ot V58.69 07/07/2015 KASSIDYEUGENIA S LATENT PRINT EXAMINER Ot V87.41 07/07/2015 YIEUGENIA S LATENT PRINT EXAMINER Ot 172.5 07/07/2015 YIEUGENIA S LATENT PRINT EXAMINER Ot 199.1 07/07/2015 YIEUGENIA S LATENT PRINT EXAMINER Ot 786.2 07/07/2015 KASSIDY EUGENIA S LATENT PRINT EXAMINER Ot V10.3 07/07/2015 YIEUGENIA S LATENT PRINT EXAMINER Ot V15.3 07/07/2015 KASSIDY EUGENIA S LATENT PRINT EXAMINER Ot V58.69 07/07/2015 KASSIDY EUGENIA S LATENT PRINT EXAMINER Ot V87.41 07/07/2015 KASSIDY EUGENIA S LATENT PRINT EXAMINER Ot 172.5 07/07/2015 EUGENIA YI S LATENT PRINT EXAMINER Ot 199.1 07/07/2015 YIEUGENIA Veras S LATENT PRINT EXAMINER Ot 511.9 07/07/2015 EUGENIA YI S LATENT PRINT EXAMINER Ot V10.3 07/07/2015 EUGENIA YI S LATENT PRINT EXAMINER Ot V15.3 07/07/2015 YIEUGENIA Veras S LATENT PRINT EXAMINER Ot V58.69 07/07/2015 YIEUGENIA Veras S LATENT PRINT EXAMINER Ot V87.41 07/07/2015 YIEUGENIA Veras S LATENT PRINT EXAMINER Ot 780.60 07/07/2015 EUGENIA YI S LATENT PRINT EXAMINER Ot 786.2 07/07/2015 YIEUGENIA Veras S LATENT PRINT EXAMINER Ot 172.5 07/07/2015 YIEUGENIA Veras S LATENT PRINT EXAMINER Ot 199.1 07/07/2015 YIEUGENIA Veras S LATENT PRINT EXAMINER Ot V10.3 07/07/2015 YIEUGENIA Veras S LATENT PRINT EXAMINER Ot V15.3 07/07/2015 YIEUGENIA S LATENT PRINT EXAMINER Ot V58.69 07/07/2015 YIEUGENIA Veras S LATENT PRINT EXAMINER Ot V87.41 07/07/2015 YIEUGENIA Veras S LATENT PRINT EXAMINER Ot 414.00 07/07/2015 YIEUGENIA Veras S LATENT PRINT EXAMINER Ot V58.69 07/07/2015 YIEUGENIA Veras S LATENT PRINT EXAMINER Ot V58.83 07/07/2015 ANGY HOFFMAN, KARLA Horowitz Ot 272.4 07/07/2015 ANGY HOFFMAN, KARLA Horowitz Ot 401.9 07/07/2015 ANGY HOFFMAN, KARLA Horowitz Ot V58.6 9 07/07/2015 YIEUGENIA Veras S LATENT PRINT EXAMINER Ot 172.5 07/07/2015 YIEUGENIA Veras S LATENT PRINT EXAMINER Ot 199.1 07/07/2015 YIEUGENIA Veras S LATENT PRINT EXAMINER Ot 511.9 07/07/2015 YIEUGENIA Veras S LATENT PRINT EXAMINER Ot V10.3 07/07/2015 YIEUGENIA S LATENT PRINT EXAMINER Ot V15.3 07/07/2015 YIEUGENIA Veras S LATENT PRINT EXAMINER Ot V58.69 07/07/2015 YIEUGENIA Veras S LATENT PRINT EXAMINER Ot V87.41 07/07/2015 FRANCISCO ROLON Ot C43.59 07/07/2015 FRANCISCO ROLON Ot Z79.899 07/07/2015 FRANCISCO ROLON N Ot Z85.3 07/07/2015 ОЛЬГАFRANCISCO MAE N Ot Z92.21 07/07/2015 FRANCISCO ROLON N Ot Z92.3 07/07/2015 EUGENIA YI LATENT PRINT EXAMINER Ot C43.9 07/07/2015 Ot C43.9 07/07/2015 EUGENIA YI S LATENT PRINT EXAMINER Ot C43.9 07/17/2015 EUGENIA YI S LATENT PRINT EXAMINER Ot C43.9 07/27/2015 FRANCISCO ROLON N Ot 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 07/27/2015 FRANCISCO ROLON N Ot 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 07/27/2015 FRANCISCO ROLON N Ot Z85.3 PERSONAL HISTORY OF MALIGNANT NEOPLASM O 07/27/2015 FRANCISCO ROLON N Ot Z92.21 PERSONAL HISTORY OF ANTINEOPLASTIC CHEMO 07/27/2015 FRANCISCO ROLON N Ot Z92.3 PERSONAL HISTORY OF IRRADIATION 07/28/2015 FRANCISCO ROLON N Ot C43.59 07/28/2015 ОЛЬГА BOBAN N Ot Z79.899 07/28/2015 ОЛЬГА, BOBAN N Ot Z85.3 07/28/2015 ОЛЬГА, BOBAN N Ot Z92.21 07/28/2015 ОЛЬГА, BOBAN N Ot Z92.3 07/29/2015 ОЛЬГА, BOBAN N Ot C43.59 07/29/2015 ОЛЬГА, BOBAN N Ot Z79.899 07/29/2015 ОЛЬГА, BOBAN N Ot Z85.3 07/29/2015 ОЛЬГА, BOBAN N Ot Z92.21 07/29/2015 ОЛЬГА, BOBAN N Ot Z92.3 07/29/2015 EUGENIA YI S LATENT PRINT EXAMINER Ot C43.59 08/05/2015 EUGENIA YI S LATENT PRINT EXAMINER Ot C43.9 08/07/2015 EUGENIA YI S LATENT PRINT EXAMINER Ot C43.59 08/07/2015 EUGENIA YI S LATENT PRINT EXAMINER Ot Z79.899 08/07/2015 EUGENIA YI S LATENT PRINT EXAMINER Ot Z85.3 08/07/2015 EUGENIA YI S LATENT PRINT EXAMINER Ot Z92.21 08/07/2015 EUGENIA YI S LATENT PRINT EXAMINER Ot Z92.3 08/18/2015 YI, HILAH S LATENT PRINT EXAMINER Ot C43.59 08/18/2015 YI, HILAH S LATENT PRINT EXAMINER Ot Z79.899 08/18/2015 YI, HILAH S LATENT PRINT EXAMINER Ot Z85.3 08/18/2015 YI, HILAH S LATENT PRINT EXAMINER Ot Z92.21 08/18/2015 YI, HILAH S LATENT PRINT EXAMINER Ot Z92.3 08/20/2015 YI, HILAH S LATENT PRINT EXAMINER Ot C43.59 08/20/2015 YI, HILAH S LATENT PRINT EXAMINER Ot Z79.899 08/20/2015 YI, HILAH S LATENT PRINT EXAMINER Ot Z85.3 08/20/2015 YI, HILAH S LATENT PRINT EXAMINER Ot Z92.21 08/20/2015 YI, HILAH S LATENT PRINT EXAMINER Ot Z92.3 08/25/2015 ANGY HOFFMAN, KARLA Horowitz Ot 719.4 7 08/25/2015 ОЛЬГА, BOBAN N Ot C43.59 08/25/2015 ОЛЬГА, BOBAN N Ot Z51.11 08/25/2015 ОЛЬГА, BOBAN N Ot Z79.899 08/25/2015 ОЛЬГА, BOBAN N Ot Z85.3 08/25/2015 ОЛЬГА, BOBAN N Ot Z92.3 08/26/2015 ОЛЬГА, BOBAN N Ot C43.59 08/26/2015 ОЛЬГА, BOBAN N Ot Z51.11 08/26/2015 ОЛЬГА, BOBAN N Ot Z79.899 08/26/2015 ОЛЬГА, BOBAN N Ot Z85.3 08/26/2015 ОЛЬГА, BOBAN N Ot Z92.3 08/29/2015 SHERRELL HOFFMAN, RIKA Bledsoe Ot L81.9 08/29/2015 SHERRELL HOFFMAN, RIKA Bledsoe Ot L82.1 OTHER SEBORRHEIC KERATOSIS 08/29/2015 SHERRELL HOFFMAN, RIKA Bledsoe Ot Z85.820 PERSONAL HISTORY OF MALIGNANT MELANOMA O 09/01/2015 YI, EUGENIA S LATENT PRINT EXAMINER Ot C43.59 09/01/2015 YI, HILAH S LATENT PRINT EXAMINER Ot Z79.899 09/01/2015 YI, HILAH S LATENT PRINT EXAMINER Ot Z85.3 09/01/2015 YI, JUANITOAH S LATENT PRINT EXAMINER Ot Z92.21 09/01/2015 YI, EUGENIA S LATENT PRINT EXAMINER Ot Z92.3 09/03/2015 KASSIDY EUGENIA S LATENT PRINT EXAMINER Ot C43.59 09/03/2015 KASSIDY EUGENIA S LATENT PRINT EXAMINER Ot Z79.899 09/03/2015 KASSIDY EUGENIA S LATENT PRINT EXAMINER Ot Z85.3 09/03/2015 KASSIDY EUGENIA S LATENT PRINT EXAMINER Ot Z92.3 09/05/2015 ОЛЬГА, BOBAN N Ot 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 09/05/2015 ОЛЬГА, BOBAN N Ot E86.0 DEHYDRATION 09/05/2015 ОЛЬГА, BOBAN N Ot K52.9 NONINFECTIVE GASTROENTERITIS AND COLITIS 09/22/2015 KASSIDY EUGENIA S LATENT PRINT EXAMINER Ot C43.59 09/22/2015 KASSIDY EUGENIA S LATENT PRINT EXAMINER Ot Z79.899 09/22/2015 KASSIDY EUGENIA S LATENT PRINT EXAMINER Ot Z85.3 09/22/2015 KASSIDY EUGENIA S LATENT PRINT EXAMINER Ot Z92.3 09/22/2015 ОЛЬГА, BOBAN N Ot C43.59 09/22/2015 ОЛЬГА, BOBAN N Ot Z51.11 09/22/2015 ОЛЬГА, BOBAN N Ot Z79.899 09/22/2015 ОЛЬГА, BOBAN N Ot Z85.3 09/22/2015 ОЛЬГА, BOBAN N Ot Z92.3 09/23/2015 SHERRELL HOFFMAN, RIKA M Ot 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 09/23/2015 SHERRELL HOFFMAN, RIKA M Ot Z01.818 ENCOUNTER FOR OTHER PREPROCEDURAL EXAMIN 09/26/2015 SHERRELL HOFFMAN, RIKA M Ot 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 10/02/2015 EUGENIA YI S LATENT PRINT EXAMINER Ot C43.59 10/07/2015 ОЛЬГА, BOBAN N Ot C43.59 10/07/2015 ОЛЬГА, BOBAN N Ot Z51.11 10/07/2015 ОЛЬГА, BOBAN N Ot Z79.899 10/07/2015 ОЛЬГА, BOBAN N Ot Z85.3 10/07/2015 ОЛЬГА, BOBAN N Ot Z92.3 10/08/2015 EUGENIA YI S LATENT PRINT EXAMINER Ot C43.59 10/08/2015 KASSIDY EUGENIA S LATENT PRINT EXAMINER Ot C77.3 10/08/2015 KASSIDY EUGENIA S LATENT PRINT EXAMINER Ot Z79.899 10/08/2015 YI, EUGENIA S LATENT PRINT EXAMINER Ot Z85.3 10/08/2015 JUANITO YITOD S LATENT PRINT EXAMINER Ot Z92.21 10/08/2015 JUANITO YITOD S LATENT PRINT EXAMINER Ot Z92.3 10/21/2015 FRANCISCO ROLON N Ot C43.59 10/21/2015 ОЛЬГАDIANAPAPA N Ot Z51.11 10/21/2015 ОЛЬГА DIANAPAPA N Ot Z79.899 10/21/2015 ОЛЬГАFRANCISCO N Ot Z85.3 10/21/2015 ОЛЬГА FRANCISCO N Ot Z92.3 10/21/2015 JUANITO YITOD S LATENT PRINT EXAMINER Ot C43.59 10/23/2015 JUANITO YITOD S LATENT PRINT EXAMINER Ot C43.59 10/23/2015 KASSIDY EUGENIA S LATENT PRINT EXAMINER Ot C77.3 10/23/2015 KASSIDY EUGENIA S LATENT PRINT EXAMINER Ot Z79.899 10/23/2015 KASSIDY EUGENIA S LATENT PRINT EXAMINER Ot Z85.3 10/23/2015 KASSIDY EUGENIA S LATENT PRINT EXAMINER Ot Z92.21 10/23/2015 KASSIDY EUGENIA S LATENT PRINT EXAMINER Ot Z92.3 10/26/2015 FRANCISCO ROLON N Ot 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 10/26/2015 FRANCISCO ROLON Ot Z51.11 ENCOUNTER FOR ANTINEOPLASTIC CHEMOTHERAP 10/26/2015 ОЛЬГАFRANCISCO N Ot 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 10/26/2015 ОЛЬГАFRANCISCO N Ot Z85.3 PERSONAL HISTORY OF MALIGNANT NEOPLASM O 10/26/2015 FRANCISCO ROLON N Ot Z92.3 PERSONAL HISTORY OF IRRADIATION 10/28/2015 EUGENIA YI S LATENT PRINT EXAMINER Ot C43.59 10/28/2015 EUGENIA YI S LATENT PRINT EXAMINER Ot C77.3 10/28/2015 EUGENIA YI S LATENT PRINT EXAMINER Ot Z79.899 10/28/2015 EUGENIA IY S LATENT PRINT EXAMINER Ot Z85.3 10/28/2015 EUGENIA YI LATENT PRINT EXAMINER Ot Z92.21 10/28/2015 EUGENIA YI LATENT PRINT EXAMINER Ot Z92.3 10/29/2015 EUGENIA YI LATENT PRINT EXAMINER Ot C43.59 10/30/2015 FRANCISCO ROLON N Ot C43.59 10/30/2015 FRANCISCO ROLON N Ot Z51.11 10/30/2015 FRANCISCO ROLON N Ot Z79.899 10/30/2015 FRANCISCO ROLON N Ot Z85.3 10/30/2015 FRANCISCO ROLON N Ot Z92.3 11/01/2015 FRANCISCO ROLON N Ot 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 11/01/2015 FRANCISCO ROLON N Ot Z51.11 ENCOUNTER FOR ANTINEOPLASTIC CHEMOTHERAP 11/01/2015 FRANCISCO ROLON N Ot Z79.899 OTHER FCI (CURRENT) DRUG THERAPY 11/01/2015 FRANCISCO ROLON N Ot Z85.3 PERSONAL HISTORY OF MALIGNANT NEOPLASM O 11/01/2015 FRANCISCO ROLON N Ot Z92.3 PERSONAL HISTORY OF IRRADIATION 11/04/2015 EUGENIA YI LATENT PRINT EXAMINER Ot 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 11/04/2015 EUGENIA YI LATENT PRINT EXAMINER Ot C77.3 SEC AND UNSP MALIG NEOPLASM OF [place] AN 11/04/2015 EUGENIA YI LATENT PRINT EXAMINER Ot 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 11/04/2015 EUGENIA YI LATENT PRINT EXAMINER Ot Z85.3 PERSONAL HISTORY OF MALIGNANT NEOPLASM O 11/04/2015 EUGENIA YI LATENT PRINT EXAMINER Ot Z92.21 PERSONAL HISTORY OF ANTINEOPLASTIC CHEMO 11/04/2015 EUGENIA YI LATENT PRINT EXAMINER Ot Z92.3 PERSONAL HISTORY OF IRRADIATION 11/11/2015 EUGENIA YI LATENT PRINT EXAMINER Ot 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 11/11/2015 EUGENIA YI LATENT PRINT EXAMINER Ot C77.3 SEC AND UNSP MALIG NEOPLASM OF [place] AN 11/11/2015 EUGENIA YI LATENT PRINT EXAMINER Ot Z79.899 OTHER [facility] (CURRENT) DRUG THERAPY 11/11/2015 EUGENIA YI S LATENT PRINT EXAMINER Ot Z85.3 PERSONAL HISTORY OF MALIGNANT NEOPLASM O 11/11/2015 YI EUGENIA S LATENT PRINT EXAMINER Ot Z92.21 PERSONAL HISTORY OF ANTINEOPLASTIC CHEMO 11/11/2015 YI EUGENIA S LATENT PRINT EXAMINER Ot Z92.3 PERSONAL HISTORY OF IRRADIATION 11/12/2015 KASSIDY EUGENIA Veras LATENT PRINT EXAMINER Ot 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 11/12/2015 JUANITO YITOD S LATENT PRINT EXAMINER Ot C77.3 SEC AND UNSP MALIG NEOPLASM OF [place] AN 11/12/2015 JUANITO YITOD S LATENT PRINT EXAMINER Ot Z79.899 OTHER [facility]CI (CURRENT) DRUG THERAPY 11/12/2015 KASSIDY EUGENIA S LATENT PRINT EXAMINER Ot Z85.3 PERSONAL HISTORY OF MALIGNANT NEOPLASM O 11/12/2015 JUANITO YITOD S LATENT PRINT EXAMINER Ot Z92.21 PERSONAL HISTORY OF ANTINEOPLASTIC CHEMO 11/12/2015 JUANITO YITOD S LATENT PRINT EXAMINER Ot Z92.3 PERSONAL HISTORY OF IRRADIATION 11/20/2015 EUGENIA YI S LATENT PRINT EXAMINER Ot 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 11/20/2015 JUANITO IYTOD S LATENT PRINT EXAMINER Ot 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 11/20/2015 JUANITO YITOD S LATENT PRINT EXAMINER Ot C77.3 SEC AND UNSP MALIG NEOPLASM OF [place] AN 11/20/2015 EUGENIA YI S LATENT PRINT EXAMINER Ot Z79.899 OTHER [facility]CI (CURRENT) DRUG THERAPY 11/20/2015 EUGENIA YI S LATENT PRINT EXAMINER Ot Z85.3 PERSONAL HISTORY OF MALIGNANT NEOPLASM O 11/20/2015 EUGENIA YI S LATENT PRINT EXAMINER Ot Z92.21 PERSONAL HISTORY OF ANTINEOPLASTIC CHEMO 11/20/2015 JUANITO YITOD S LATENT PRINT EXAMINER Ot Z92.3 PERSONAL HISTORY OF IRRADIATION 11/23/2015 JUANITO YITOD S LATENT PRINT EXAMINER Ot 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 11/23/2015 EUGENIA YI S LATENT PRINT EXAMINER Ot C77.3 SEC AND UNSP MALIG NEOPLASM OF [place] AN 11/23/2015 EUGENIA YI S LATENT PRINT EXAMINER Ot 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 11/23/2015 EUGENIA YI S LATENT PRINT EXAMINER Ot Z85.3 PERSONAL HISTORY OF MALIGNANT NEOPLASM O 11/23/2015 EUGENIA YI S LATENT PRINT EXAMINER Ot Z92.21 PERSONAL HISTORY OF ANTINEOPLASTIC CHEMO 11/23/2015 YIEUGENIA Veras LATENT PRINT EXAMINER Ot Z92.3 PERSONAL HISTORY OF IRRADIATION 11/25/2015 EUGENIA YI LATENT PRINT EXAMINER Ot 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 11/25/2015 EUGENIA YI LATENT PRINT EXAMINER Ot C77.3 SEC AND UNSP MALIG NEOPLASM OF [place] AN 11/25/2015 EUGENIA YI LATENT PRINT EXAMINER Ot 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 11/25/2015 EUGENIA YI LATENT PRINT EXAMINER Ot Z85.3 PERSONAL HISTORY OF MALIGNANT NEOPLASM O 11/25/2015 EUGENIA YI LATENT PRINT EXAMINER Ot Z92.21 PERSONAL HISTORY OF ANTINEOPLASTIC CHEMO 11/25/2015 YIEUGENIA Veras LATENT PRINT EXAMINER Ot Z92.3 PERSONAL HISTORY OF IRRADIATION 11/27/2015 FRANCISCO ROLON Ot B37.0 CANDIDAL STOMATITIS 11/27/2015 FRANCISCO ROLON Ot 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 11/27/2015 FRANCISCO ROLON N Ot E86.0 DEHYDRATION 11/27/2015 FRANCISCO ROLON N Ot E87.6 HYPOKALEMIA 11/27/2015 FRANCISCO ROLON Ot I25.10 ATHSCL HEART DISEASE OF [place] CORONARY 11/27/2015 FRANCISCO ROLON Ot J98.11 ATELECTASIS 11/27/2015 FRANCISCO ROLON N Ot K12.30 ORAL MUCOSITIS (ULCERATIVE), UNSPECIFIED 11/27/2015 FRANCISCO ROLON Ot K58.9 IRRITABLE BOWEL SYNDROME WITHOUT DIARRHE 11/27/2015 FRANCISCO ROLON N Ot N18.3 CHRONIC KIDNEY DISEASE, STAGE 3 (MODERAT 11/27/2015 FRANCISCO ROLON N Ot R21 RASH AND OTHER NONSPECIFIC SKIN ERUPTION 11/27/2015 FRANCISCO ROLON N Ot R50.9 FEVER, UNSPECIFIED 11/27/2015 FRANCISCO ROLON N Ot R53.1 WEAKNESS 11/27/2015 FRANCISCO ROLON N Ot R91.8 OTHER NONSPECIFIC ABNORMAL FINDING OF JEAN 11/27/2015 FRANCISCO ROLON N Ot Z92.21 PERSONAL HISTORY OF ANTINEOPLASTIC CHEMO 11/27/2015 FRANCISCO ROLON N Ot Z92.3 PERSONAL HISTORY OF IRRADIATION 11/27/2015 FRANCISCO ROLON N Ot Z95.1 PRESENCE OF AORTOCORONARY BYPASS GRAFT 12/01/2015 FRANCISCO ROLON N Ot B37.0 CANDIDAL STOMATITIS 12/01/2015 FRANCISCO ROLON N Ot 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 12/01/2015 FRANCISCO ROLON N Ot E86.0 DEHYDRATION 12/01/2015 FRANCISCO ROLON N Ot E87.6 HYPOKALEMIA 12/01/2015 FRANCISCO ROLON N Ot I25.10 ATHSCL HEART DISEASE OF [place] CORONARY 12/01/2015 FRANCISCO ROLON N Ot J98.11 ATELECTASIS 12/01/2015 FRANCISCO ROLON N Ot K12.30 ORAL MUCOSITIS (ULCERATIVE), UNSPECIFIED 12/01/2015 FRANCISCO ROLON N Ot K58.9 IRRITABLE BOWEL SYNDROME WITHOUT DIARRHE 12/01/2015 FRANCISCO ROLON N Ot N18.3 CHRONIC KIDNEY DISEASE, STAGE 3 (MODERAT 12/01/2015 FRANCISCO ROLON N Ot R21 RASH AND OTHER NONSPECIFIC SKIN ERUPTION 12/01/2015 FRANCISCO ROLON N Ot R50.9 FEVER, UNSPECIFIED 12/01/2015 FRANCISCO ROLON N Ot R91.8 OTHER NONSPECIFIC ABNORMAL FINDING OF JEAN 12/01/2015 FRANCISCO ROLON N Ot Z92.21 PERSONAL HISTORY OF ANTINEOPLASTIC CHEMO 12/01/2015 FRANCISCO ROLON N Ot Z92.3 PERSONAL HISTORY OF IRRADIATION 12/01/2015 FRANCISCO ROLON N Ot Z95.1 PRESENCE OF AORTOCORONARY BYPASS GRAFT 12/01/2015 FRANCISCO ROLON N Ot B37.0 CANDIDAL STOMATITIS 12/01/2015 FRANCISCO ROLON N Ot 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 12/01/2015 FRANCISCO ROLON N Ot E86.0 DEHYDRATION 12/01/2015 FRANCISCO ROLON N Ot E87.6 HYPOKALEMIA 12/01/2015 FRANCISCO ROLON N Ot I25.10 ATHSCL HEART DISEASE OF [place] CORONARY 12/01/2015 ОЛЬГА DIANAPAPA N Ot J98.11 ATELECTASIS 12/01/2015 ОЛЬГА FRANCISCO N Ot K12.30 ORAL MUCOSITIS (ULCERATIVE), UNSPECIFIED 12/01/2015 ОЛЬГА FRANCISCO N Ot K58.9 IRRITABLE BOWEL SYNDROME WITHOUT DIARRHE 12/01/2015 ОЛЬГА FRANCISCO N Ot N18.3 CHRONIC KIDNEY DISEASE, STAGE 3 (MODERAT 12/01/2015 ОЛЬГА DIANAAN N Ot R21 RASH AND OTHER NONSPECIFIC SKIN ERUPTION 12/01/2015 ОЛЬГА FRANCISCO N Ot R50.9 FEVER, UNSPECIFIED 12/01/2015 ОЛЬГА, FRANCISCO N Ot R91.8 OTHER NONSPECIFIC ABNORMAL FINDING OF JEAN 12/01/2015 ОЛЬГА FRANCISCO N Ot Z92.21 PERSONAL HISTORY OF ANTINEOPLASTIC CHEMO 12/01/2015 FRANCISCO ROLON N Ot Z92.3 PERSONAL HISTORY OF IRRADIATION 12/01/2015 FRANCISCO ROLON N Ot Z95.1 PRESENCE OF AORTOCORONARY BYPASS GRAFT 12/01/2015 FRANCISCO ROLON N Ot B37.0 CANDIDAL STOMATITIS 12/01/2015 FRANCISCO ROLON N Ot 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 12/01/2015 ОЛЬГАFRANCISCO N Ot E86.0 DEHYDRATION 12/01/2015 ОЛЬГАFRANCISCO N Ot E87.6 HYPOKALEMIA 12/01/2015 ОЛЬГАFRANCISCO N Ot I25.10 ATHSCL HEART DISEASE OF [place] CORONARY 12/01/2015 ОЛЬГАFRANCISCO N Ot J98.11 ATELECTASIS 12/01/2015 ОЛЬГАFRANCISCO N Ot K12.30 ORAL MUCOSITIS (ULCERATIVE), UNSPECIFIED 12/01/2015 FRANCISCO ROLON N Ot K58.9 IRRITABLE BOWEL SYNDROME WITHOUT DIARRHE 12/01/2015 FRANCISCO ROLON N Ot N18.3 CHRONIC KIDNEY DISEASE, STAGE 3 (MODERAT 12/01/2015 ОЛЬГАFRANCISCO N Ot R21 RASH AND OTHER NONSPECIFIC SKIN ERUPTION 12/01/2015 ОЛЬГАFRANCISCO N Ot R50.9 FEVER, UNSPECIFIED 12/01/2015 FRANCISCO ROLON N Ot R91.8 OTHER NONSPECIFIC ABNORMAL FINDING OF JEAN 12/01/2015 FRANCISCO ROLON N Ot Z92.21 PERSONAL HISTORY OF ANTINEOPLASTIC CHEMO 12/01/2015 FRANCISCO ROLON N Ot Z92.3 PERSONAL HISTORY OF IRRADIATION 12/01/2015 FRANCISCO ROLON N Ot Z95.1 PRESENCE OF AORTOCORONARY BYPASS GRAFT 12/03/2015 ОЛЬГА DIANAPAPA Tarah Ot 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 12/03/2015 ОЛЬГА, FRANCISCO Rascon Ot Z51.11 ENCOUNTER FOR ANTINEOPLASTIC CHEMOTHERAP 12/03/2015 ОЛЬГА FRANCISCO Rascon Ot Z79.899 OTHER [facility] (CURRENT) DRUG THERAPY 12/03/2015 ОЛЬГА FRANCISCO Rascon Ot Z85.3 PERSONAL HISTORY OF MALIGNANT NEOPLASM O 12/03/2015 ОЛЬГАFRANCISCO Ot Z92.3 PERSONAL HISTORY OF IRRADIATION 12/04/2015 ОЛЬГА FRANCISCO Rascon Ot B37.0 CANDIDAL STOMATITIS 12/04/2015 ОЛЬГА, FRANCISCO Rascon Ot 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 12/04/2015 ОЛЬГАFRANCISCO Ot E86.0 DEHYDRATION 12/04/2015 ОЛЬГАFRANCISCO Ot E87.6 HYPOKALEMIA 12/04/2015 FRANCISCO ROLON Ot G57.91 UNSPECIFIED MONONEUROPATHY OF RIGHT LOWE 12/04/2015 FRANCISCO ROLON Ot G57.92 UNSPECIFIED MONONEUROPATHY OF LEFT LOWER 12/04/2015 ОЛЬГАFRANCISCO Ot I25.10 ATHSCL HEART DISEASE OF [place] CORONARY 12/04/2015 ОЛЬГАFRANCISCO Ot J98.11 ATELECTASIS 12/04/2015 ОЛЬГАFRANCISCO Ot K12.30 ORAL MUCOSITIS (ULCERATIVE), UNSPECIFIED 12/04/2015 ОЛЬГАFRANCISCO Ot K58.9 IRRITABLE BOWEL SYNDROME WITHOUT DIARRHE 12/04/2015 FRANCISCO ROLON Ot N18.3 CHRONIC KIDNEY DISEASE, STAGE 3 (MODERAT 12/04/2015 ОЛЬГАFRANCISCO Ot R21 RASH AND OTHER NONSPECIFIC SKIN ERUPTION 12/04/2015 FRANCISCO ROLON Ot R50.9 FEVER, UNSPECIFIED 12/04/2015 FRANCISCO ROLON Ot R91.8 OTHER NONSPECIFIC ABNORMAL FINDING OF JEAN 12/04/2015 FRANCISCO ROLON Ot Z92.21 PERSONAL HISTORY OF ANTINEOPLASTIC CHEMO 12/04/2015 ОЛЬГАFRANCISCO Ot Z92.3 PERSONAL HISTORY OF IRRADIATION 12/04/2015 FRANCISCO ROLON Ot Z95.1 PRESENCE OF AORTOCORONARY BYPASS GRAFT 12/04/2015 EUGENIA YI LATENT PRINT EXAMINER Ot 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 12/04/2015 EUGENIA YIP Ot C77.3 SEC AND UNSP MALIG NEOPLASM OF AXILLA AN 12/04/2015 EUGENIA YI LATENT PRINT EXAMINER Ot Z79.899 OTHER [facility] (CURRENT) DRUG THERAPY 12/04/2015 EUGENIA YI LATENT PRINT EXAMINER Ot Z85.3 PERSONAL HISTORY OF MALIGNANT NEOPLASM O 12/04/2015 EUGENIA YI LATENT PRINT EXAMINER Ot Z92.21 PERSONAL HISTORY OF ANTINEOPLASTIC CHEMO 12/04/2015 EUGENIA YI LATENT PRINT EXAMINER Ot Z92.3 PERSONAL HISTORY OF IRRADIATION 12/04/2015 EUGENIA YI LATENT PRINT EXAMINER Ot 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 12/04/2015 EUGENIA YI LATENT PRINT EXAMINER Ot 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 12/04/2015 EUGENIA YIP Ot C77.3 SEC AND UNSP MALIG NEOPLASM OF [place] AN 12/04/2015 EUGENIA YI LATENT PRINT EXAMINER Ot Z79.899 OTHER [facility] (CURRENT) DRUG THERAPY 12/04/2015 EUGENIA YI LATENT PRINT EXAMINER Ot Z85.3 PERSONAL HISTORY OF MALIGNANT NEOPLASM O 12/04/2015 EUGENIA YI LATENT PRINT EXAMINER Ot Z92.21 PERSONAL HISTORY OF ANTINEOPLASTIC CHEMO 12/04/2015 EUGENIA YI LATENT PRINT EXAMINER Ot Z92.3 PERSONAL HISTORY OF IRRADIATION 12/05/2015 EUGENIA YI LATENT PRINT EXAMINER Ot 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 12/05/2015 EUGENIA YI LATENT PRINT EXAMINER Ot C77.3 SEC AND UNSP MALIG NEOPLASM OF [place] AN 12/05/2015 EUGENIA YI LATENT PRINT EXAMINER Ot Z79.899 OTHER [facility] (CURRENT) DRUG THERAPY 12/05/2015 EUGENIA YI LATENT PRINT EXAMINER Ot Z85.3 PERSONAL HISTORY OF MALIGNANT NEOPLASM O 12/05/2015 EUGENIA YI LATENT PRINT EXAMINER Ot Z92.21 PERSONAL HISTORY OF ANTINEOPLASTIC CHEMO 12/05/2015 EUGENIA YI LATENT PRINT EXAMINER Ot Z92.3 PERSONAL HISTORY OF IRRADIATION 12/11/2015 EUGENIA YI LATENT PRINT EXAMINER Ot 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 12/11/2015 EUGENIA YI Rito LATENT PRINT EXAMINER Ot C77.3 SEC AND UNSP MALIG NEOPLASM OF [place] AN 12/11/2015 EUGENIA YI LATENT PRINT EXAMINER Ot 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 12/11/2015 EUGENIA YI LATENT PRINT EXAMINER Ot Z85.3 PERSONAL HISTORY OF MALIGNANT NEOPLASM O 12/11/2015 EUGENIA YI S LATENT PRINT EXAMINER Ot Z92.21 PERSONAL HISTORY OF ANTINEOPLASTIC CHEMO 12/11/2015 EUGENIA YI S LATENT PRINT EXAMINER Ot Z92.3 PERSONAL HISTORY OF IRRADIATION 12/26/2015 EUGENIA YI S LATENT PRINT EXAMINER Ot 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 12/26/2015 EUGENIA YI LATENT PRINT EXAMINER Ot C77.3 SEC AND UNSP MALIG NEOPLASM OF [place] AN 12/26/2015 EUGENIA YI LATENT PRINT EXAMINER Ot Z79.899 OTHER [facility] (CURRENT) DRUG THERAPY 12/26/2015 EUGENIA YI LATENT PRINT EXAMINER Ot Z85.3 PERSONAL HISTORY OF MALIGNANT NEOPLASM O 12/26/2015 EUGENIA YI LATENT PRINT EXAMINER Ot Z92.21 PERSONAL HISTORY OF ANTINEOPLASTIC CHEMO 12/26/2015 EUGENIA YI S LATENT PRINT EXAMINER Ot Z92.3 PERSONAL HISTORY OF IRRADIATION 12/30/2015 EUGENIA YI LATENT PRINT EXAMINER Ot 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 12/30/2015 EUGENIA YI LATENT PRINT EXAMINER Ot C77.3 SEC AND UNSP MALIG NEOPLASM OF AXILLA AN 12/30/2015 EUGENIA YI LATENT PRINT EXAMINER Ot 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 12/30/2015 EUGENIA YI S LATENT PRINT EXAMINER Ot Z85.3 PERSONAL HISTORY OF MALIGNANT NEOPLASM O 12/30/2015 EUGENIA YI S LATENT PRINT EXAMINER Ot Z92.21 PERSONAL HISTORY OF ANTINEOPLASTIC CHEMO 12/30/2015 EUGENIA YI S LATENT PRINT EXAMINER Ot Z92.3 PERSONAL HISTORY OF IRRADIATION 01/07/2016 EUGENIA YI LATENT PRINT EXAMINER Ot 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 01/07/2016 EUGENIA YI LATENT PRINT EXAMINER Ot C77.3 SEC AND UNSP MALIG NEOPLASM OF AXILLA AN 01/07/2016 YIEUGENIA Veras LATENT PRINT EXAMINER Ot Z79.899 OTHER [facility] (CURRENT) DRUG THERAPY 01/07/2016 YI EUGENIA Veras LATENT PRINT EXAMINER Ot Z85.3 PERSONAL HISTORY OF MALIGNANT NEOPLASM O 01/07/2016 YI EUGENIA Veras LATENT PRINT EXAMINER Ot Z92.21 PERSONAL HISTORY OF ANTINEOPLASTIC CHEMO 01/07/2016 YI EUGENIA Veras LATENT PRINT EXAMINER Ot Z92.3 PERSONAL HISTORY OF IRRADIATION 02/03/2016 JUANITO YITOD S LATENT PRINT EXAMINER Ot 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 02/03/2016 YI EUGENIA Veras LATENT PRINT EXAMINER Ot C77.3 SEC AND UNSP MALIG NEOPLASM OF AXILLA AN 02/03/2016 JUANITO YITOD Veras LATENT PRINT EXAMINER Ot Z79.899 OTHER FCI (CURRENT) DRUG THERAPY 02/03/2016 KASSIDY EUGENIA S LATENT PRINT EXAMINER Ot Z85.3 PERSONAL HISTORY OF MALIGNANT NEOPLASM O 02/03/2016 YIJUANITOTOD Veras LATENT PRINT EXAMINER Ot Z92.21 PERSONAL HISTORY OF ANTINEOPLASTIC CHEMO 02/03/2016 JUANITO YITOD Veras LATENT PRINT EXAMINER Ot Z92.3 PERSONAL HISTORY OF IRRADIATION 02/03/2016 YIJUANITOTOD Veras LATENT PRINT EXAMINER Ot M79.89 OTHER SPECIFIED SOFT TISSUE DISORDERS 02/03/2016 JUANITO YITOD Veras LATENT PRINT EXAMINER Ot 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 02/03/2016 YIJUANITOTOD Veras LATENT PRINT EXAMINER Ot C77.3 SEC AND UNSP MALIG NEOPLASM OF AXILLA AN 02/03/2016 YI EUGENIA Veras LATENT PRINT EXAMINER Ot 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 02/03/2016 JUANITO YITOD S LATENT PRINT EXAMINER Ot Z85.3 PERSONAL HISTORY OF MALIGNANT NEOPLASM O 02/03/2016 KASSIDY EUGENIA Veras LATENT PRINT EXAMINER Ot Z92.21 PERSONAL HISTORY OF ANTINEOPLASTIC CHEMO 02/03/2016 JUANITO YITOD S LATENT PRINT EXAMINER Ot Z92.3 PERSONAL HISTORY OF IRRADIATION 02/04/2016 FRANCISCO ROLON Ot 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 02/04/2016 FRANCISCO ROLON Ot Z51.11 ENCOUNTER FOR ANTINEOPLASTIC CHEMOTHERAP 02/04/2016 FRANCISCO ROLON Ot Z79.899 OTHER [facility]CI (CURRENT) DRUG THERAPY 02/04/2016 FRANCISCO ROLON Tarah Ot Z85.3 PERSONAL HISTORY OF MALIGNANT NEOPLASM O 02/04/2016 FRANCISCO ROLON Tarah Ot Z92.3 PERSONAL HISTORY OF IRRADIATION 02/05/2016 FRANCISCO ROLON Ot 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 02/05/2016 FRANCISCO ROLON Tarah Ot 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 02/05/2016 FRANCISCO ROLON Tarah Ot Z85.3 PERSONAL HISTORY OF MALIGNANT NEOPLASM O 02/05/2016 FRANCISCO ROLON Tarah Ot Z92.3 PERSONAL HISTORY OF IRRADIATION 02/09/2016 FRANCISCO ROLON Tarah Ot 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 02/09/2016 FRANCISCO ROLON Tarah Ot Z51.11 ENCOUNTER FOR ANTINEOPLASTIC CHEMOTHERAP 02/09/2016 FRANCISCO ROLON Tarah Ot Z79.899 OTHER FCI (CURRENT) DRUG THERAPY 02/09/2016 FRANCISCO ROOLN Tarah Ot Z85.3 PERSONAL HISTORY OF MALIGNANT NEOPLASM O 02/09/2016 FRANCISCO ROLON Tarah Ot Z92.3 PERSONAL HISTORY OF IRRADIATION 02/09/2016 EILEEN GUNTER DO, Ot M47.812 SPONDYLOSIS W/O MYELOPATHY OR RADICULOPA 02/09/2016 EILEEN GUNTER DO, Ot S01.111 A LACERATION W/O FB OF RIGHT EYELID AND PE 02/09/2016 EILEEN GUNTER DO Ot S16.1XX A STRAIN OF MUSCLE, FASCIA AND TENDON AT N 02/09/2016 EILEEN GUNTER DO, Ot W01.0XX A FALL SAME LEV FROM SLIP/TRIP W/O STRIKE 02/09/2016 EILEEN GUNTER DO Ot Y92.[address] [facility] [address] IN [facility] NON-[facility] (PRIVATE 02/09/2016 EILEEN GUNTER DO Ot Y99.8 OTHER EXTERNAL CAUSE STATUS 02/09/2016 EILEEN GUNTER DO, Ot Z23 ENCOUNTER FOR IMMUNIZATION 02/10/2016 EILEEN GUNTER DO, Ot M47.812 SPONDYLOSIS W/O MYELOPATHY OR RADICULOPA 02/10/2016 EILEEN GUNTER DO, Ot S01.111 A LACERATION W/O FB OF RIGHT EYELID AND PE 02/10/2016 EILEEN GUNTER DO Ot S16.1XX A STRAIN OF MUSCLE, FASCIA AND TENDON AT N 02/10/2016 EILEEN GUNTER DO Ot W01.0XX A FALL SAME LEV FROM SLIP/TRIP W/O STRIKE 02/10/2016 EILEEN GUNTER DO Ot Y92.[address] [facility] [address] IN [facility] NON-[facility] (PRIVATE 02/10/2016 EILEEN GUNTER DO Ot Y99.8 OTHER EXTERNAL CAUSE STATUS 02/10/2016 EILEEN GUNTER DO Ot Z23 ENCOUNTER FOR IMMUNIZATION 02/10/2016 EUGENIA YIP Ot 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 02/10/2016 EUGENIA YIP Ot C77.3 SEC AND [facility] MALIG NEOPLASM OF AXILLA AN 02/10/2016 EUGENIA YIP Ot Z79.899 OTHER [facility]CI (CURRENT) DRUG THERAPY 02/10/2016 EUGENIA YI LATENT PRINT EXAMINER Ot Z85.3 PERSONAL HISTORY OF MALIGNANT NEOPLASM O 02/10/2016 EUGENIA YIP Ot Z92.21 PERSONAL HISTORY OF ANTINEOPLASTIC CHEMO 02/10/2016 EUGENIA YIP Ot Z92.3 PERSONAL HISTORY OF IRRADIATION 02/10/2016 EUGENIA YI LATENT PRINT EXAMINER Ot M79.89 OTHER SPECIFIED SOFT TISSUE DISORDERS 02/10/2016 KARLA TRAVIS MD Ot 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, UNSPECIFIED 02/10/2016 KARLA TRAVIS MD Ot E78.4 OTHER HYPERLIPIDEMIA 02/10/2016 KARLA TRAVIS MD Ot I10 ESSENTIAL (PRIMARY) HYPERTENSION 02/10/2016 KARLA TRAVIS MD Ot Z79.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 02/10/2016 KARLA TRAVIS MD, Ot 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, UNSPECIFIED 02/10/2016 KARLA TRAVIS MD Ot E78.4 OTHER HYPERLIPIDEMIA 02/10/2016 KARLA TRAVIS MD Ot I10 ESSENTIAL (PRIMARY) HYPERTENSION 02/10/2016 KARLA TRAVIS MD Ot Z79.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 02/10/2016 KARLA TRAVIS MD, Ot 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, UNSPECIFIED 02/10/2016 KARLA TRAVIS MD Ot E78.4 OTHER HYPERLIPIDEMIA 02/10/2016 KARLA TRAVIS MD Ot I10 ESSENTIAL (PRIMARY) HYPERTENSION 02/10/2016 KARLA TRAVIS MD Ot Z79.8 99 OTHER [facility] (CURRENT) DRUG THERAPY 02/18/2016 KARLA TRAVIS MD Ot 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, UNSPECIFIED 02/18/2016 KARLA TRAVIS MD Ot E78.4 OTHER HYPERLIPIDEMIA 02/18/2016 KARLA TRAVIS MD Ot I10 ESSENTIAL (PRIMARY) HYPERTENSION 02/18/2016 KARLA TRAVIS MD Ot Z79.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 02/27/2016 FRANCISCO ROLON Tarah Ot 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 02/27/2016 FRANCISCO ROLON Tarah Ot 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 02/27/2016 FRANCISCO ROLON N Ot Z85.3 PERSONAL HISTORY OF MALIGNANT NEOPLASM O 02/27/2016 ОЛЬГА, FRANCISCO N Ot Z92.3 PERSONAL HISTORY OF IRRADIATION 03/03/2016 EUGENIA YI LATENT PRINT EXAMINER Ot 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 03/03/2016 EUGENIA YI LATENT PRINT EXAMINER Ot C77.3 SEC AND UNSP MALIG NEOPLASM OF AXILLA AN 03/03/2016 EUGENIA YI LATENT PRINT EXAMINER Ot 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 03/03/2016 EUGENIA YI LATENT PRINT EXAMINER Ot Z85.3 PERSONAL HISTORY OF MALIGNANT NEOPLASM O 03/03/2016 EUGENIA YI LATENT PRINT EXAMINER Ot Z92.21 PERSONAL HISTORY OF ANTINEOPLASTIC CHEMO 03/03/2016 EUGENIA YI LATENT PRINT EXAMINER Ot Z92.3 PERSONAL HISTORY OF IRRADIATION 03/03/2016 EUGENIA YI LATENT PRINT EXAMINER Ot 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 03/03/2016 EUGENIA YI LATENT PRINT EXAMINER Ot C77.3 SEC AND UNSP MALIG NEOPLASM OF AXILLA AN 03/03/2016 EUGENIA YI LATENT PRINT EXAMINER Ot 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 03/03/2016 EUGENIA YI LATENT PRINT EXAMINER Ot Z85.3 PERSONAL HISTORY OF MALIGNANT NEOPLASM O 03/03/2016 EUGENIA YI LATENT PRINT EXAMINER Ot Z92.21 PERSONAL HISTORY OF ANTINEOPLASTIC CHEMO 03/03/2016 EUGENIA YI LATENT PRINT EXAMINER Ot Z92.3 PERSONAL HISTORY OF IRRADIATION 03/03/2016 VERNON HOFFMAN FACC, [facility] Ot 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 03/03/2016 VERNON HOFFMAN FACC, [facility] Ot E78.4 OTHER HYPERLIPIDEMIA 03/03/2016 VERNON HOFFMAN FACC, [facility] CCD[facility] Ot I25.10 ATHSCL HEART DISEASE OF [place] CORONARY 03/03/2016 VERNON FARNSWORTH, [facility] Ot I65.23 OCCLUSION AND STENOSIS OF [place]AL [place] 03/03/2016 VERNON HOFFMAN FACC, [facility] CCD[facility] Ot N18.3 CHRONIC KIDNEY DISEASE, STAGE 3 (MODERAT 03/08/2016 EUGENIA YI LATENT PRINT EXAMINER Ot 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 03/08/2016 EUGENIA YI LATENT PRINT EXAMINER Ot C77.3 SEC AND UNSP MALIG NEOPLASM OF AXILLA AN 03/08/2016 EUGENIA YI LATENT PRINT EXAMINER Ot Z79.899 OTHER [facility]CI (CURRENT) DRUG THERAPY 03/08/2016 EUGENIA YI LATENT PRINT EXAMINER Ot Z85.3 PERSONAL HISTORY OF MALIGNANT NEOPLASM O 03/08/2016 EUGENIA YI LATENT PRINT EXAMINER Ot Z92.21 PERSONAL HISTORY OF ANTINEOPLASTIC CHEMO 03/08/2016 EUGENIA YI LATENT PRINT EXAMINER Ot Z92.3 PERSONAL HISTORY OF IRRADIATION 03/08/2016 EUGENIA YI LATENT PRINT EXAMINER Ot 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 03/08/2016 EUGENIA YIP Ot C77.3 SEC AND UNSP MALIG NEOPLASM OF AXILLA AN 03/08/2016 EUGENIA YI LATENT PRINT EXAMINER Ot Z79.899 OTHER FCI (CURRENT) DRUG THERAPY 03/08/2016 EUGENIA YI LATENT PRINT EXAMINER Ot Z85.3 PERSONAL HISTORY OF MALIGNANT NEOPLASM O 03/08/2016 EUGENIA YI LATENT PRINT EXAMINER Ot Z92.21 PERSONAL HISTORY OF ANTINEOPLASTIC CHEMO 03/08/2016 EUGENIA YI LATENT PRINT EXAMINER Ot Z92.3 PERSONAL HISTORY OF IRRADIATION 03/09/2016 EUGENIA YI LATENT PRINT EXAMINER Ot 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1XX A STRAIN OF MUSCLE, FASCIA AND TENDON AT N 03/10/2016 EILEEN GUNTER DO Ot W01.0XX A FALL SAME LEV FROM SLIP/TRIP W/O STRIKE 03/10/2016 EILEEN GUNTER DO Ot Y92.[address] [facility] [address] IN [facility] NON-INST[facility] (PRIVATE 03/10/2016 EILEEN GUNTRE DO Ot Y99.8 OTHER EXTERNAL CAUSE STATUS 03/10/2016 EILEEN GUNTER DO Ot Z23 ENCOUNTER FOR IMMUNIZATION 03/10/2016 EUGENIA YI Ot 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 03/10/2016 EUGENIA YI Ot 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 03/10/2016 EUGENIA YI Ot C77.3 SEC AND UNSP MALIG NEOPLASM OF AXILLA AN 03/15/2016 FRANCISCO ROLON Ot C77.3 SEC AND UNSP MALIG NEOPLASM OF AXILLA AN 03/15/2016 FRANCISCO ROLON Ot M62.9 DISORDER OF MUSCLE, UNSPECIFIED 03/15/2016 FRANCISCO ROLON Ot R94.8 ABNORMAL RESULTS OF FUNCTION STUDIES OF 03/17/2016 Ot V76.12 OTH SCREEN MAMMO- MALIGN NEOPLASM OF JOSE 03/17/2016 Ot 702.0 ACTI MIRI KERATOSIS 03/17/2016 Ot 702.19 OTH ER SEBORRHEIC KERATOSIS 03/17/2016 Ot 789.00 ABD OMINAL PAIN, UNSPECIFIED SITE 03/17/2016 Ot V10.3 HX O F BREAST MALIGNANCY 03/17/2016 Ot V58.66 VINCE G-TERM (CURRENT) USE OF ASPIRIN 03/17/2016 Ot V58.69 OTH MED,LT,CURRENT USE 03/17/2016 Ot V67.1 RADI OTHERAPY FOLLOW-UP 03/17/2016 Ot V67.2 CHEM OTHERAPY FOLLOW-UP 03/17/2016 Ot 174.9 DAVID GN NEOPL BREAST NOS 03/17/2016 Ot V76.11 SCR N MAMMO-HIGH RISK PT, MALIGNANT NEOPL 03/17/2016 Ot 375.15 TEA R FILM INSUFFIC NOS 03/17/2016 Ot 527.7 SALI VARY SECRETION DIS 03/17/2016 Ot V10.3 HX O F BREAST MALIGNANCY 03/17/2016 Ot V58.69 OTH MED,LT,CURRENT USE 03/17/2016 Ot V67.1 RADI OTHERAPY FOLLOW-UP 03/17/2016 Ot V67.2 CHEM OTHERAPY FOLLOW-UP 03/17/2016 Ot 719.46 RACHEL NT PAIN-L/LEG 03/17/2016 Ot 473.9 ENGINEERING SURVEYOR MIRI SINUSITIS NOS 03/17/2016 Ot 780.4 DIZZ INESS AND GIDDINESS 03/17/2016 Ot V10.3 HX O F BREAST MALIGNANCY 03/17/2016 GILBERT HOWARD APRN Ot V76.12 OTH SCREEN MAMMO-MALIGN NEOPLASM OF JOSE 03/17/2016 ALEXSANDER LUNA LATENT PRINT EXAMINER Ot 414.00 CORON ATHEROSCLER NOS TYPE VESSEL, NATIV 03/17/2016 ALEXSANDER LUNA LATENT PRINT EXAMINER Ot 786.09 RESPIRATORY ABNORM NEC 03/17/2016 ALEXSANDER LUNA LATENT PRINT EXAMINER Ot V45.81 AORTOCORONARY BYPASS 03/17/2016 FRANCISCO ROLON Ot 174.9 MALIGN NEOPL BREAST NOS 03/17/2016 SHERRELL HOFFMAN, RIKA Bledsoe Ot 172.5 MALIG MELANOMA TRUNK 03/17/2016 SHERRELL HOFFMAN, RIKA Bledsoe Ot 709.9 SKIN DISORDER NOS 03/17/2016 SHERRELL HOFFMAN, RIKA Bledsoe Ot V72.63 PRE-PROCEDURAL LABORATORY EXAMINATION 03/17/2016 SHERRELL HOFFMAN, RIKA Bledsoe Ot V74.8 SCREEN-BACTERIAL DIS NEC 03/17/2016 FRANCISCO ROLON Ot 172.5 MALIG MELANOMA TRUNK 03/17/2016 EUGENIA YI LATENT PRINT EXAMINER Ot 172.5 MALIG MELANOMA TRUNK 03/17/2016 EUGENIA YI LATENT PRINT EXAMINER Ot 724.2 LUMBAGO 03/17/2016 EUGENIA YI LATENT PRINT EXAMINER Ot 781.2 ABNORMALITY OF GAIT 03/17/2016 EUGENIA YI LATENT PRINT EXAMINER Ot 784.0 HEADACHE 03/17/2016 EUGENIA YI LATENT PRINT EXAMINER Ot V10.3 HX OF BREAST MALIGNANCY 03/17/2016 EUGENIA YI LATENT PRINT EXAMINER Ot V15.3 HX OF IRRADIATION 03/17/2016 EUGENIA YI LATENT PRINT EXAMINER Ot V58.69 OTH MED,LT,CURRENT USE 03/17/2016 EUGENIA YI LATENT PRINT EXAMINER Ot V87.41 PERSONAL HISTORY OF ANTINEOPLASTIC CHEMO 03/17/2016 EUGENIA YI LATENT PRINT EXAMINER Ot 172.9 MALIG MELANOMA SKIN NOS 03/17/2016 EUGENIA YI LATENT PRINT EXAMINER Ot 781.2 ABNORMALITY OF GAIT 03/17/2016 EUGENIA YI LATENT PRINT EXAMINER Ot 784.0 HEADACHE 03/17/2016 EUGENIA YI LATENT PRINT EXAMINER Ot 794.9 ABN FUNCTION STUDY NEC 03/17/2016 EUGENIA YI LATENT PRINT EXAMINER Ot V76.12 OTH SCREEN MAMMO-MALIGN NEOPLASM OF JOSE 03/17/2016 Ot 172.9 DAVID G MELANOMA SKIN NOS 03/17/2016 Ot V76.12 OTH SCREEN MAMMO- MALIGN NEOPLASM OF JOSE 03/17/2016 FRANCISCO ROLON Ot 172.9 MALIG MELANOMA SKIN NOS 03/17/2016 FRANCISCO ROLON Ot V10.3 HX OF BREAST MALIGNANCY 03/17/2016 ANGY HOFFMAN, KARLA Horowitz Ot 719.4 7 JOINT PAIN-ANKLE 03/17/2016 EUGENIA YI LATENT PRINT EXAMINER Ot 172.5 MALIG MELANOMA TRUNK 03/17/2016 EUGENIA YI LATENT PRINT EXAMINER Ot V10.3 HX OF BREAST MALIGNANCY 03/17/2016 EUGENIA YI LATENT PRINT EXAMINER Ot V15.3 HX OF IRRADIATION 03/17/2016 EUGENIA YI LATENT PRINT EXAMINER Ot V58.69 OTH MED,LT,CURRENT USE 03/17/2016 EUGENIA YI LATENT PRINT EXAMINER Ot V87.41 PERSONAL HISTORY OF ANTINEOPLASTIC CHEMO 03/17/2016 EUGENIA YI LATENT PRINT EXAMINER Ot 172.9 MALIG MELANOMA SKIN NOS 03/17/2016 EUGENIA YI LATENT PRINT EXAMINER Ot 174.9 MALIGN NEOPL BREAST NOS 03/17/2016 EUGENIA YI LATENT PRINT EXAMINER Ot 724.5 BACKACHE NOS 03/17/2016 EUGENIA YI LATENT PRINT EXAMINER Ot 172.9 MALIG MELANOMA SKIN NOS 03/17/2016 EUGENIA YI LATENT PRINT EXAMINER Ot 174.9 MALIGN NEOPL BREAST NOS 03/17/2016 KASSIDY EUGENIA Veras LATENT PRINT EXAMINER Ot 724.5 BACKACHE NOS 03/17/2016 DIANA ROLONPAPA N Ot 172.9 MALIG MELANOMA SKIN NOS 03/17/2016 DIANA ROLONPAPA N Ot 786.6 CHEST SWELLING/MASS/LUMP 03/17/2016 EUGENIA YI LATENT PRINT EXAMINER Ot 172.9 MALIG MELANOMA SKIN NOS 03/17/2016 EUGENIA YI LATENT PRINT EXAMINER Ot V58.69 OTH MED,LT,CURRENT USE 03/17/2016 EUGENIA YI LATENT PRINT EXAMINER Ot V58.83 ENCOUNTER FOR THERAPEUTIC DRUG MONITORIN 03/17/2016 EUGENIA YI LATENT PRINT EXAMINER Ot 172.5 MALIG MELANOMA TRUNK 03/17/2016 EUGENIA YI LATENT PRINT EXAMINER Ot V10.3 HX OF BREAST MALIGNANCY 03/17/2016 EUGENIA YI LATENT PRINT EXAMINER Ot V15.3 HX OF IRRADIATION 03/17/2016 EUGENIA YI LATENT PRINT EXAMINER Ot V58.69 OTH MED,LT,CURRENT USE 03/17/2016 EUGENIA YI LATENT PRINT EXAMINER Ot V87.41 PERSONAL HISTORY OF ANTINEOPLASTIC CHEMO 03/17/2016 EUGENIA YI LATENT PRINT EXAMINER Ot 172.5 MALIG MELANOMA TRUNK 03/17/2016 EUGENIA YI LATENT PRINT EXAMINER Ot 199.1 MALIGNANT NEOPLASM NOS 03/17/2016 EUGENIA YI LATENT PRINT EXAMINER Ot 786.2 COUGH 03/17/2016 EUGENIA YI LATENT PRINT EXAMINER Ot V10.3 HX OF BREAST MALIGNANCY 03/17/2016 EUGENIA YI LATENT PRINT EXAMINER Ot V15.3 HX OF IRRADIATION 03/17/2016 EUGENIA YI LATENT PRINT EXAMINER Ot V58.69 OTH MED,LT,CURRENT USE 03/17/2016 EUGENIA YI LATENT PRINT EXAMINER Ot V87.41 PERSONAL HISTORY OF ANTINEOPLASTIC CHEMO 03/17/2016 EUGENIA YI LATENT PRINT EXAMINER Ot 172.5 MALIG MELANOMA TRUNK 03/17/2016 EUGENIA YI LATENT PRINT EXAMINER Ot 199.1 MALIGNANT NEOPLASM NOS 03/17/2016 EUGENIA YI LATENT PRINT EXAMINER Ot 511.9 PLEURAL EFFUSION NOS 03/17/2016 EUGENIA YI LATENT PRINT EXAMINER Ot V10.3 HX OF BREAST MALIGNANCY 03/17/2016 EUGENIA YI LATENT PRINT EXAMINER Ot V15.3 HX OF IRRADIATION 03/17/2016 EUGENIA YI LATENT PRINT EXAMINER Ot V58.69 OTH MED,LT,CURRENT USE 03/17/2016 EUGENIA YI LATENT PRINT EXAMINER Ot V87.41 PERSONAL HISTORY OF ANTINEOPLASTIC CHEMO 03/17/2016 EUGENIA YI LATENT PRINT EXAMINER Ot 780.60 FEVER, UNSPECIFIED 03/17/2016 EUGENIA YI LATENT PRINT EXAMINER Ot 786.2 COUGH 03/17/2016 EUGENIA YI LATENT PRINT EXAMINER Ot 172.5 MALIG MELANOMA TRUNK 03/17/2016 EUGENIA YI LATENT PRINT EXAMINER Ot 199.1 MALIGNANT NEOPLASM NOS 03/17/2016 EUGENIA YI LATENT PRINT EXAMINER Ot V10.3 HX OF BREAST MALIGNANCY 03/17/2016 EUGENIA YI LATENT PRINT EXAMINER Ot V15.3 HX OF IRRADIATION 03/17/2016 EUGENIA YI LATENT PRINT EXAMINER Ot V58.69 OTH MED,LT,CURRENT USE 03/17/2016 EUGENIA YI LATENT PRINT EXAMINER Ot V87.41 PERSONAL HISTORY OF ANTINEOPLASTIC CHEMO 03/17/2016 EUGENIA YI LATENT PRINT EXAMINER Ot 414.00 CORON ATHEROSCLER NOS TYPE VESSEL, NATIV 03/17/2016 UEGENIA YI LATENT PRINT EXAMINER Ot V58.69 OTH MED,LT,CURRENT USE 03/17/2016 EUGENIA YI LATENT PRINT EXAMINER Ot V58.83 ENCOUNTER FOR THERAPEUTIC DRUG MONITORIN 03/17/2016 KARLA TRAVIS MD Ot 272.4 HYPERLIPIDEMIA NEC/NOS 03/17/2016 KARLA TRAVIS MD Ot 401.9 HYPERTENSION NOS 03/17/2016 KARLA TRAVIS MD Ot V58.6 9 OTH MED,LT,CURRENT USE 03/17/2016 EUGENIA YI LATENT PRINT EXAMINER Ot 172.5 MALIG MELANOMA TRUNK 03/17/2016 JUANITO YITOD Rito LATENT PRINT EXAMINER Ot 199.1 MALIGNANT NEOPLASM NOS 03/17/2016 EUGENIA YI LATENT PRINT EXAMINER Ot 511.9 PLEURAL EFFUSION NOS 03/17/2016 EUGENIA YI LATENT PRINT EXAMINER Ot V10.3 HX OF BREAST MALIGNANCY 03/17/2016 EUGENIA YI LATENT PRINT EXAMINER Ot V15.3 HX OF IRRADIATION 03/17/2016 EUGENIA YI LATENT PRINT EXAMINER Ot V58.69 OTH MED,LT,CURRENT USE 03/17/2016 KASSIDY EUGENIA Veras LATENT PRINT EXAMINER Ot V87.41 PERSONAL HISTORY OF ANTINEOPLASTIC CHEMO 03/17/2016 EUGENIA YI LATENT PRINT EXAMINER Ot 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, UNSPECIFIED 03/17/2016 Ot C43.9 DAVID GNANT MELANOMA OF SKIN, UNSPECIFIED 03/17/2016 EUGENIA YI LATENT PRINT EXAMINER Ot 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, UNSPECIFIED 03/17/2016 EUGENIA YI LATENT PRINT EXAMINER Ot 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 03/17/2016 EUGENIA YI LATENT PRINT EXAMINER Ot 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 03/17/2016 EUGENIA YI LATENT PRINT EXAMINER Ot 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 03/17/2016 EUGENIA YI LATENT PRINT EXAMINER Ot Z85.3 PERSONAL HISTORY OF MALIGNANT NEOPLASM O 03/17/2016 EUGENIA YI LATENT PRINT EXAMINER Ot Z92.21 PERSONAL HISTORY OF ANTINEOPLASTIC CHEMO 03/17/2016 EUGENIA YI LATENT PRINT EXAMINER Ot Z92.3 PERSONAL HISTORY OF IRRADIATION 03/17/2016 EUGENIA YI LATENT PRINT EXAMINER Ot 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 03/17/2016 EUGENIA YI LATENT PRINT EXAMINER Ot 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 03/17/2016 EUGENIA YI LATENT PRINT EXAMINER Ot Z85.3 PERSONAL HISTORY OF MALIGNANT NEOPLASM O 03/17/2016 EUGENIA YI LATENT PRINT EXAMINER Ot Z92.21 PERSONAL HISTORY OF ANTINEOPLASTIC CHEMO 03/17/2016 EUGENIA YI LATENT PRINT EXAMINER Ot Z92.3 PERSONAL HISTORY OF IRRADIATION 03/17/2016 EUGENIA YI LATENT PRINT EXAMINER Ot 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 03/17/2016 EUGENIA YI LATENT PRINT EXAMINER Ot 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 03/17/2016 EUGENIA YI LATENT PRINT EXAMINER Ot Z85.3 PERSONAL HISTORY OF MALIGNANT NEOPLASM O 03/17/2016 EUGENIA YI LATENT PRINT EXAMINER Ot Z92.3 PERSONAL HISTORY OF IRRADIATION 03/17/2016 SHERRELL HOFFMAN, RIKA M Ot L98.9 DISORDER OF THE SKIN AND SUBCUTANEOUS TI 03/17/2016 SHERRELL HOFFMAN, RIKA Bledsoe Ot Z01.818 ENCOUNTER FOR OTHER PREPROCEDURAL EXAMIN 03/17/2016 EUGENIA YI LATENT PRINT EXAMINER Ot 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 03/17/2016 EUGENIA YI LATENT PRINT EXAMINER Ot 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 03/17/2016 EUGENIA YI LATENT PRINT EXAMINER Ot C77.3 SEC AND UNSP MALIG NEOPLASM OF AXILLA AN 03/17/2016 EUGENIA YI LATENT PRINT EXAMINER Ot Z79.899 OTHER [facility]CI (CURRENT) DRUG THERAPY 03/17/2016 EUGENIA YI LATENT PRINT EXAMINER Ot Z85.3 PERSONAL HISTORY OF MALIGNANT NEOPLASM O 03/17/2016 EUGENIA YI LATENT PRINT EXAMINER Ot Z92.21 PERSONAL HISTORY OF ANTINEOPLASTIC CHEMO 03/17/2016 EUGENIA YI S LATENT PRINT EXAMINER Ot Z92.3 PERSONAL HISTORY OF IRRADIATION 03/17/2016 EUGENIA YI LATENT PRINT EXAMINER Ot 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 03/17/2016 EUGENIA YI LATENT PRINT EXAMINER Ot C77.3 SEC AND UNSP MALIG NEOPLASM OF AXILLA AN 03/17/2016 EUGENIA YI LATENT PRINT EXAMINER Ot Z79.899 OTHER [facility] (CURRENT) DRUG THERAPY 03/17/2016 EUGENIA YI LATENT PRINT EXAMINER Ot Z85.3 PERSONAL HISTORY OF MALIGNANT NEOPLASM O 03/17/2016 EUGENIA YI S LATENT PRINT EXAMINER Ot Z92.21 PERSONAL HISTORY OF ANTINEOPLASTIC CHEMO 03/17/2016 EUGENIA YI S LATENT PRINT EXAMINER Ot Z92.3 PERSONAL HISTORY OF IRRADIATION 03/17/2016 EUGENIA YI LATENT PRINT EXAMINER Ot 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 03/17/2016 EUGENIA YI LATENT PRINT EXAMINER Ot 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 03/17/2016 JUANITO YITOD Veras LATENT PRINT EXAMINER Ot C77.3 SEC AND UNSP MALIG NEOPLASM OF AXILLA AN 03/17/2016 JUANITO YITOD Veras LATENT PRINT EXAMINER Ot 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 03/17/2016 EUGENIA YI S LATENT PRINT EXAMINER Ot Z85.3 PERSONAL HISTORY OF MALIGNANT NEOPLASM O 03/17/2016 JUANITO YITOD S LATENT PRINT EXAMINER Ot Z92.21 PERSONAL HISTORY OF ANTINEOPLASTIC CHEMO 03/17/2016 JUANITO YITOD S LATENT PRINT EXAMINER Ot Z92.3 PERSONAL HISTORY OF IRRADIATION 03/17/2016 EUGENIA YI LATENT PRINT EXAMINER Ot 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 03/17/2016 EUGENIA YI LATENT PRINT EXAMINER Ot C77.3 SEC AND UNSP MALIG NEOPLASM OF AXILLA AN 03/17/2016 EUGENIA YI LATENT PRINT EXAMINER Ot Z79.899 OTHER [facility] (CURRENT) DRUG THERAPY 03/17/2016 EUGENIA YI LATENT PRINT EXAMINER Ot Z85.3 PERSONAL HISTORY OF MALIGNANT NEOPLASM O 03/17/2016 EUGENIA YI LATENT PRINT EXAMINER Ot Z92.21 PERSONAL HISTORY OF ANTINEOPLASTIC CHEMO 03/17/2016 EUGENIA YI S LATENT PRINT EXAMINER Ot Z92.3 PERSONAL HISTORY OF IRRADIATION 03/17/2016 EUGENIA YI LATENT PRINT EXAMINER Ot 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 03/17/2016 EUGENIA YI LATENT PRINT EXAMINER Ot C77.3 SEC AND UNSP MALIG NEOPLASM OF AXILLA AN 03/17/2016 EUGENIA YI LATENT PRINT EXAMINER Ot 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 03/17/2016 EUGENIA YI S LATENT PRINT EXAMINER Ot Z85.3 PERSONAL HISTORY OF MALIGNANT NEOPLASM O 03/17/2016 EUGENIA YI S LATENT PRINT EXAMINER Ot Z92.21 PERSONAL HISTORY OF ANTINEOPLASTIC CHEMO 03/17/2016 EUGENIA YI S LATENT PRINT EXAMINER Ot Z92.3 PERSONAL HISTORY OF IRRADIATION 03/17/2016 EUGENIA YI LATENT PRINT EXAMINER Ot 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 03/17/2016 EUGENIA YI LATENT PRINT EXAMINER Ot C77.3 SEC AND UNSP MALIG NEOPLASM OF AXILLA AN 03/17/2016 EUGENIA YI LATENT PRINT EXAMINER Ot Z79.899 OTHER [facility] (CURRENT) DRUG THERAPY 03/17/2016 YIEUGENIA Veras LATENT PRINT EXAMINER Ot Z85.3 PERSONAL HISTORY OF MALIGNANT NEOPLASM O 03/17/2016 EUGENIA YI LATENT PRINT EXAMINER Ot Z92.21 PERSONAL HISTORY OF ANTINEOPLASTIC CHEMO 03/17/2016 YIEUGENIA Veras LATENT PRINT EXAMINER Ot Z92.3 PERSONAL HISTORY OF IRRADIATION 03/17/2016 YIEUGENIA Veras LATENT PRINT EXAMINER Ot M79.89 OTHER SPECIFIED SOFT TISSUE DISORDERS 03/17/2016 YI EUGENIA Veras LATENT PRINT EXAMINER Ot 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 03/17/2016 YIEUGENIA Veras LATENT PRINT EXAMINER Ot C77.3 SEC AND UNSP MALIG NEOPLASM OF [place] AN 03/17/2016 EUGENIA YI LATENT PRINT EXAMINER Ot Z79.899 OTHER [facility] (CURRENT) DRUG THERAPY 03/17/2016 YI EUGENIA Vears LATENT PRINT EXAMINER Ot Z85.3 PERSONAL HISTORY OF MALIGNANT NEOPLASM O 03/17/2016 YIEUGENIA Veras LATENT PRINT EXAMINER Ot Z92.21 PERSONAL HISTORY OF ANTINEOPLASTIC CHEMO 03/17/2016 YIEUGENIA Veras LATENT PRINT EXAMINER Ot Z92.3 PERSONAL HISTORY OF IRRADIATION 03/17/2016 KARLA TRAVIS MD Ot 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, UNSPECIFIED 03/17/2016 KARLA TRAVIS MD Ot E78.4 OTHER HYPERLIPIDEMIA 03/17/2016 KARLA TRAVIS MD Ot I10 ESSENTIAL (PRIMARY) HYPERTENSION 03/17/2016 KARLA TRAVIS MD Ot Z79.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 03/17/2016 FRANCISCO ROLON Ot 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 03/17/2016 FRANCISCO ROLON Ot Z79.899 OTHER [facility] (CURRENT) DRUG THERAPY 03/17/2016 FRANCISCO ROLON Ot Z85.3 PERSONAL HISTORY OF MALIGNANT NEOPLASM O 03/17/2016 FRANCISCO ROLON Ot Z92.3 PERSONAL HISTORY OF IRRADIATION 03/17/2016 VERNON HOFFMAN FAC, ALI FACP CCDS Ot 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 03/17/2016 VERNON HOFFMAN FAC, ALI FACP CCDS Ot E78.4 OTHER HYPERLIPIDEMIA 03/17/2016 VERNON HOFFMAN FACC, SHAQ FARNSWORTHP CCDS Ot I25.10 ATHSCL HEART DISEASE OF [place] CORONARY 03/17/2016 VERNON HOFFMAN FACC, SHAQ FACP CCDS Ot I65.23 OCCLUSION AND STENOSIS OF BILATERAL [place] 03/17/2016 VERNON HOFFMAN FACC, SHAQ FACP CCDS Ot N18.3 CHRONIC KIDNEY DISEASE, STAGE 3 (MODERAT 03/17/2016 EUGENIA YI LATENT PRINT EXAMINER Ot 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 03/17/2016 EUGENIA YI LATENT PRINT EXAMINER Ot C77.3 SEC AND UNSP MALIG NEOPLASM OF [place] AN 03/17/2016 EUGENIA YI LATENT PRINT EXAMINER Ot 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 03/17/2016 EUGENIA YI LATENT PRINT EXAMINER Ot Z85.3 PERSONAL HISTORY OF MALIGNANT NEOPLASM O 03/17/2016 EUGENIA YI LATENT PRINT EXAMINER Ot Z92.21 PERSONAL HISTORY OF ANTINEOPLASTIC CHEMO 03/17/2016 EUGENIA YI LATENT PRINT EXAMINER Ot Z92.3 PERSONAL HISTORY OF IRRADIATION 03/17/2016 EUGENIA YI LATENT PRINT EXAMINER Ot 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 03/17/2016 EUGENIA YIP Ot C77.3 SEC AND UNSP MALIG NEOPLASM OF [place] 03/17/2016 FRANCISCO ROLON Ot C77.3 SEC AND UNSP MALIG NEOPLASM OF [place] AN 03/17/2016 FRANCISCO ROLON Ot M62.9 DISORDER OF MUSCLE, UNSPECIFIED 03/17/2016 FRANCISCO ROLON Ot R94.8 ABNORMAL RESULTS OF FUNCTION STUDIES OF 03/18/2016 FRANCISCO ROLON Ot 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 03/18/2016 FRANCISCO ROLON Ot Z79.899 OTHER [facility] (CURRENT) DRUG THERAPY 03/18/2016 FRANCISCO ROLON Ot Z85.3 PERSONAL HISTORY OF MALIGNANT NEOPLASM O 03/18/2016 FRANCISCO ROLON Ot Z92.3 PERSONAL HISTORY OF IRRADIATION 03/26/2016 VERNON HOFFMAN FACC, SHAQ FARNSWORTHP CCDS Ot 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 03/26/2016 VERNON HOFFMAN FACC, ALI FACP CCDS Ot E78.4 OTHER HYPERLIPIDEMIA 03/26/2016 [facility]ERNON HOFFMAN [facility]ACC, [facility] Ot I25.10 ATHSCL HEART DISEASE OF [place] CORONARY 03/26/2016 VERNON HOFFMAN FACC, SHAQ [facility] CCDS Ot I65.23 OCCLUSION AND STENOSIS OF BILATERAL [place] 03/26/2016 VERNON HOFFMAN FACC, SHAQ [facility] CCDS Ot N18.3 CHRONIC KIDNEY DISEASE, STAGE 3 (MODERAT 03/26/2016 EUGENIA YI LATENT PRINT EXAMINER Ot 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 03/26/2016 EUGENIA YI LATENT PRINT EXAMINER Ot C77.3 SEC AND UNSP MALIG NEOPLASM OF [place] AN 03/26/2016 EUGENIA YI S LATENT PRINT EXAMINER Ot 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 03/26/2016 EUGENIA YI S LATENT PRINT EXAMINER Ot Z85.3 PERSONAL HISTORY OF MALIGNANT NEOPLASM O 03/26/2016 EUGENIA YI S LATENT PRINT EXAMINER Ot Z92.21 PERSONAL HISTORY OF ANTINEOPLASTIC CHEMO 03/26/2016 EUGENIA YI S LATENT PRINT EXAMINER Ot Z92.3 PERSONAL HISTORY OF IRRADIATION 04/06/2016 EUGENIA YI S LATENT PRINT EXAMINER Ot 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 04/06/2016 EUGENIA YI LATENT PRINT EXAMINER Ot C77.3 SEC AND UNSP MALIG NEOPLASM OF [place] AN 04/06/2016 EUGENIA YI S LATENT PRINT EXAMINER Ot 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 04/06/2016 EUGENIA IY S LATENT PRINT EXAMINER Ot Z85.3 PERSONAL HISTORY OF MALIGNANT NEOPLASM O 04/06/2016 EUGENIA YI S LATENT PRINT EXAMINER Ot Z92.21 PERSONAL HISTORY OF ANTINEOPLASTIC CHEMO 04/06/2016 EUGENIA YI S LATENT PRINT EXAMINER Ot Z92.3 PERSONAL HISTORY OF IRRADIATION 04/06/2016 FRANCISCO ROLON Ot C77.3 SEC AND UNSP MALIG NEOPLASM OF [place] 04/06/2016 FRANCISCO ROLON Ot M62.9 DISORDER OF MUSCLE, UNSPECIFIED 04/06/2016 FRANCISCO ROLON Ot R94.8 ABNORMAL RESULTS OF FUNCTION STUDIES OF 04/06/2016 VERNON HOFFMAN FACC, SHAQ FARNSWORTHP CCDS Ot 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 04/06/2016 VERNON HOFFMAN [facility] Ot E78.4 OTHER HYPERLIPIDEMIA 04/06/2016 VERNON FARNSWORTH, [facility] CCDS Ot I25.10 ATHSCL HEART DISEASE OF [place] CORONARY 04/06/2016 VERNON FARNSWORTH, ALI FACP CCDS Ot I65.23 OCCLUSION AND STENOSIS OF BILATERAL [place] 04/06/2016 VERNON FARNSWORTH, [facility] CCDS Ot N18.3 CHRONIC KIDNEY DISEASE, STAGE 3 (MODERAT 04/06/2016 EUGENIA YI LATENT PRINT EXAMINER Ot 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 04/06/2016 EUGENIA YIP Ot C77.3 SEC AND UNSP MALIG NEOPLASM OF [place] 04/06/2016 EUGENIA YI LATENT PRINT EXAMINER Ot 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 04/06/2016 EUGENIA YI LATENT PRINT EXAMINER Ot Z85.3 PERSONAL HISTORY OF MALIGNANT NEOPLASM O 04/06/2016 EUGENIA YI LATENT PRINT EXAMINER Ot Z92.21 PERSONAL HISTORY OF ANTINEOPLASTIC CHEMO 04/06/2016 EUGENIA YI LATENT PRINT EXAMINER Ot Z92.3 PERSONAL HISTORY OF IRRADIATION 04/07/2016 KARLA TRAVIS MD Ot R53.8 3 OTHER FATIGUE 04/14/2016 KARLA TRAVIS MD Ot R53.8 3 OTHER FATIGUE 04/14/2016 KARLA TRAVIS MD Ot R53.8 3 OTHER FATIGUE 04/14/2016 KARLA TRAVIS MD Ot R53.8 3 OTHER FATIGUE 04/14/2016 FRANCISCO ROLON Ot C77.3 SEC AND UNSP MALIG NEOPLASM OF [place] 04/14/2016 FRANCISCO ROLON Ot M62.9 DISORDER OF MUSCLE, UNSPECIFIED 04/14/2016 FRANCISCO ROLON Ot R94.8 ABNORMAL RESULTS OF FUNCTION STUDIES OF 04/15/2016 EUGENIA YI LATENT PRINT EXAMINER Ot 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 04/15/2016 EUGENIA YIP Ot C77.3 SEC AND UNSP MALIG NEOPLASM OF [place] 04/19/2016 EUGENIA YI LATENT PRINT EXAMINER Ot E80.6 OTHER DISORDERS OF BILIRUBIN METABOLISM 04/19/2016 EUGENIA YI LATENT PRINT EXAMINER Ot 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 04/19/2016 EUGENIA YI LATENT PRINT EXAMINER Ot E80.6 OTHER DISORDERS OF BILIRUBIN METABOLISM 04/19/2016 FRANCISCO ROLON Ot 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 04/19/2016 FRANCISCO ROLON Ot Z79.899 OTHER [facility] (CURRENT) DRUG THERAPY 04/19/2016 FRANCISCO ROLON Ot Z85.3 PERSONAL HISTORY OF MALIGNANT NEOPLASM O 04/19/2016 FRANCISCO ROLON Ot Z92.3 PERSONAL HISTORY OF IRRADIATION 04/21/2016 FRANCISCO ROLON Ot 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 04/21/2016 FRANCISCO ROLON Ot Z79.899 OTHER [facility] (CURRENT) DRUG THERAPY 04/21/2016 FRANCISCO ROLON Ot Z85.3 PERSONAL HISTORY OF MALIGNANT NEOPLASM O 04/21/2016 FRANCISCO ROLON Ot Z92.3 PERSONAL HISTORY OF IRRADIATION 04/28/2016 ANGY HOFFMAN, KARLA Horowitz Ot R53.8 3 OTHER FATIGUE 04/29/2016 EUGENIA YI S LATENT PRINT EXAMINER Ot E80.6 OTHER DISORDERS OF BILIRUBIN METABOLISM 04/29/2016 EUGENAI YI S LATENT PRINT EXAMINER Ot 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 04/29/2016 EUGENIA YI S LATENT PRINT EXAMINER Ot E80.6 OTHER DISORDERS OF BILIRUBIN METABOLISM 04/29/2016 EUGENIA YI S LATENT PRINT EXAMINER Ot E80.6 OTHER DISORDERS OF BILIRUBIN METABOLISM 04/29/2016 EUGENIA YI LATENT PRINT EXAMINER Ot 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 04/29/2016 EUGENIA YI S LATENT PRINT EXAMINER Ot E80.6 OTHER DISORDERS OF BILIRUBIN METABOLISM 04/30/2016 EUGENIA YI S LATENT PRINT EXAMINER Ot 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 04/30/2016 EUGENIA YI S LATENT PRINT EXAMINER Ot E80.6 OTHER DISORDERS OF BILIRUBIN METABOLISM 05/03/2016 EUGENIA YI S LATENT PRINT EXAMINER Ot 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 05/03/2016 EUGENIA YI S LATENT PRINT EXAMINER Ot C77.3 SEC AND UNSP MALIG NEOPLASM OF [place] 05/10/2016 EUGENIA YI S LATENT PRINT EXAMINER Ot E80.6 OTHER DISORDERS OF BILIRUBIN METABOLISM 05/10/2016 YIEUGENIA Veras LATENT PRINT EXAMINER Ot 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 05/10/2016 EUGENIA YI LATENT PRINT EXAMINER Ot E80.6 OTHER DISORDERS OF BILIRUBIN METABOLISM 05/11/2016 YIEUGENIA Veras LATENT PRINT EXAMINER Ot E80.6 OTHER DISORDERS OF BILIRUBIN METABOLISM 05/20/2016 YIEUGENIA Veras LATENT PRINT EXAMINER Ot E80.6 OTHER DISORDERS OF BILIRUBIN METABOLISM 05/20/2016 EUGENIA YI LATENT PRINT EXAMINER Ot 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 05/20/2016 EUGENIA YI LATENT PRINT EXAMINER Ot E80.6 OTHER DISORDERS OF BILIRUBIN METABOLISM 06/16/2016 FRANCISCO ROLON N Ot 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 06/16/2016 FRANCISCO ROLON N Ot Z79.899 OTHER [facility] (CURRENT) DRUG THERAPY 06/16/2016 FRANCISCO ROLON N Ot Z85.3 PERSONAL HISTORY OF MALIGNANT NEOPLASM O 06/16/2016 FRANCISCO ROLON N Ot Z92.3 PERSONAL HISTORY OF IRRADIATION 06/28/2016 FRANCISCO ROLON N Ot 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 06/28/2016 FRANCISCO ROLON N Ot 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 06/28/2016 FRANCISCO ROLON N Ot Z85.3 PERSONAL HISTORY OF MALIGNANT NEOPLASM O 06/28/2016 FRANCISCO ROLON N Ot Z92.3 PERSONAL HISTORY OF IRRADIATION 07/19/2016 FRANCISCO ROLON N Ot 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 07/19/2016 FRANCISCO ROLON N Ot Z45.2 ENCOUNTER FOR ADJUSTMENT AND MANAGEMENT 07/19/2016 FRANCISCO ROLON N Ot 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 08/13/2016 ОЛЬГА DIANAPAPA N Ot 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 08/13/2016 FRANCISCO ROLON N Ot Z79.899 OTHER [facility] (CURRENT) DRUG THERAPY 08/13/2016 FRANCISCO ROLON N Ot Z85.3 PERSONAL HISTORY OF MALIGNANT NEOPLASM O 08/13/2016 ОЛЬГА DIANAPAPA N Ot Z92.3 PERSONAL HISTORY OF IRRADIATION 08/17/2016 FRANCISCO ROLON N Ot 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 08/17/2016 ОЛЬГА DIANAPAPA N Ot Z79.899 OTHER [facility] (CURRENT) DRUG THERAPY 08/17/2016 FRANCISCO ROLON N Ot Z85.3 PERSONAL HISTORY OF MALIGNANT NEOPLASM O 08/17/2016 FRANCISCO ROLON N Ot Z92.3 PERSONAL HISTORY OF IRRADIATION 09/09/2016 FRNACISCO ROLON N Ot 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 09/13/2016 ОЛЬГА DIANAPAPA N Ot 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 09/13/2016 FRANCISCO ROLON N Ot 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 09/13/2016 ОЛЬГА DIANAPAPA N Ot Z85.3 PERSONAL HISTORY OF MALIGNANT NEOPLASM O 09/13/2016 FRANCISCO ROLON N Ot Z92.3 PERSONAL HISTORY OF IRRADIATION 09/27/2016 FRANCISCO ROLON N Ot 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 09/28/2016 ОЛЬГА FRANCISCO N Ot 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3 PERSONAL HISTORY OF MALIGNANT NEOPLASM O 10/20/2016 YIEUGENIA Veras LATENT PRINT EXAMINER Ot Z85.3 PERSONAL HISTORY OF MALIGNANT NEOPLASM O 10/20/2016 YIEUGENIA Veras LATENT PRINT EXAMINER Ot Z85.3 PERSONAL HISTORY OF MALIGNANT NEOPLASM O 10/21/2016 EUGENIA YI LATENT PRINT EXAMINER Ot N 63 UNSPECIFIED LUMP IN BREAST 10/21/2016 EUGENIA YI LATENT PRINT EXAMINER Ot Z85.3 PERSONAL HISTORY OF MALIGNANT NEOPLASM O 11/05/2016 YI EUGENIA Veras LATENT PRINT EXAMINER Ot 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 11/05/2016 EUGENIA YI LATENT PRINT EXAMINER Ot R26.9 UNSPECIFIED ABNORMALITIES OF GAIT AND MO 11/05/2016 EUGENIA YI LATENT PRINT EXAMINER Ot R 42 DIZZINESS AND GIDDINESS 11/05/2016 EUGENIA YI LATENT PRINT EXAMINER Ot R 51 HEADACHE 11/14/2016 FRANCISCO ROLON Tarah Ot 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 11/14/2016 FRANCISCO ROLON Ot Z79.899 OTHER [facility] (CURRENT) DRUG THERAPY 11/14/2016 FRANCISCO ROLON Ot Z85.3 PERSONAL HISTORY OF MALIGNANT NEOPLASM O 11/14/2016 FRANCISCO ROLON Ot Z92.3 PERSONAL HISTORY OF IRRADIATION 11/19/2016 Ot 174.9 DAVID GN NEOPL BREAST NOS 11/19/2016 Ot V76.11 SCR N MAMMO-HIGH RISK PT, MALIGNANT NEOPL 11/19/2016 Ot 375.15 TEA R FILM INSUFFIC NOS 11/19/2016 Ot 527.7 SALI VARY SECRETION DIS 11/19/2016 Ot V10.3 HX O F BREAST MALIGNANCY 11/19/2016 Ot V58.69 OTH MED,LT,CURRENT USE 11/19/2016 Ot V67.1 RADI OTHERAPY FOLLOW-UP 11/19/2016 Ot V67.2 CHEM OTHERAPY FOLLOW-UP 11/19/2016 Ot 719.46 RACHEL NT PAIN-L/LEG 11/19/2016 Ot 473.9 ENGINEERING SURVEYOR MIRI SINUSITIS NOS 11/19/2016 Ot 780.4 DIZZ INESS AND GIDDINESS 11/19/2016 Ot V10.3 HX O F BREAST MALIGNANCY 11/19/2016 GILBERT HOWARD APRN Ot V76.12 OTH SCREEN MAMMO-MALIGN NEOPLASM OF JOSE 11/19/2016 ALEXSANDER LUNA LATENT PRINT EXAMINER Ot 414.00 CORON ATHEROSCLER NOS TYPE VESSEL, NATIV 11/19/2016 ALEXSANDER LUNA LATENT PRINT EXAMINER Ot 786.09 RESPIRATORY ABNORM NEC 11/19/2016 ALEXSANDER LUNA LATENT PRINT EXAMINER Ot V45.81 AORTOCORONARY BYPASS 11/19/2016 FRANCISCO ROLON Ot 174.9 MALIGN NEOPL BREAST NOS 11/19/2016 SHERRELL HOFFMAN, RIKA Bledsoe Ot 172.5 MALIG MELANOMA TRUNK 11/19/2016 SHERRELL HOFFMAN, RIKA Bledsoe Ot 709.9 SKIN DISORDER NOS 11/19/2016 SHERRELL HOFFMAN, RIKA Bledsoe Ot V72.63 PRE-PROCEDURAL LABORATORY EXAMINATION 11/19/2016 SHERRELL HOFFMAN, RIKA Bledsoe Ot V74.8 SCREEN-BACTERIAL DIS NEC 11/19/2016 FRANCISCO ROLON Ot 172.5 MALIG MELANOMA TRUNK 11/19/2016 EUGENIA YI LATENT PRINT EXAMINER Ot 172.5 MALIG MELANOMA TRUNK 11/19/2016 EUGENIA YI LATENT PRINT EXAMINER Ot 724.2 LUMBAGO 11/19/2016 EUGENIA YI LATENT PRINT EXAMINER Ot 781.2 ABNORMALITY OF GAIT 11/19/2016 EUGENIA YI LATENT PRINT EXAMINER Ot 784.0 HEADACHE 11/19/2016 EUGENIA YI LATENT PRINT EXAMINER Ot V10.3 HX OF BREAST MALIGNANCY 11/19/2016 EUGENIA YI LATENT PRINT EXAMINER Ot V15.3 HX OF IRRADIATION 11/19/2016 EUGENIA YI LATENT PRINT EXAMINER Ot V58.69 OTH MED,LT,CURRENT USE 11/19/2016 EUGENIA YI S LATENT PRINT EXAMINER Ot V87.41 PERSONAL HISTORY OF ANTINEOPLASTIC CHEMO 11/19/2016 EUGENIA YI LATENT PRINT EXAMINER Ot 172.9 MALIG MELANOMA SKIN NOS 11/19/2016 EUGENIA YI LATENT PRINT EXAMINER Ot 781.2 ABNORMALITY OF GAIT 11/19/2016 EUGENIA YI LATENT PRINT EXAMINER Ot 784.0 HEADACHE 11/19/2016 EUGENIA YI S LATENT PRINT EXAMINER Ot 794.9 ABN FUNCTION STUDY NEC 11/19/2016 EUGENIA YI LATENT PRINT EXAMINER Ot V76.12 OTH SCREEN MAMMO-MALIGN NEOPLASM OF [place] 11/19/2016 Ot 172.9 DAVID G MELANOMA SKIN NOS 11/19/2016 Ot V76.12 OTH SCREEN MAMMO- MALIGN NEOPLASM OF JOSE 11/19/2016 FRANCISCO ROLON Ot 172.9 MALIG MELANOMA SKIN NOS 11/19/2016 FRANCISCO ROLON Ot V10.3 HX OF BREAST MALIGNANCY 11/19/2016 ANGY HOFFMAN, KARLA Horowitz Ot 719.4 7 JOINT PAIN-ANKLE 11/19/2016 EUGENIA YI S LATENT PRINT EXAMINER Ot 172.5 MALIG MELANOMA TRUNK 11/19/2016 EUGENIA YI S LATENT PRINT EXAMINER Ot V10.3 HX OF BREAST MALIGNANCY 11/19/2016 EUGENIA YI S LATENT PRINT EXAMINER Ot V15.3 HX OF IRRADIATION 11/19/2016 EUGENIA YI S LATENT PRINT EXAMINER Ot V58.69 OTH MED,LT,CURRENT USE 11/19/2016 EUGENIA YI S LATENT PRINT EXAMINER Ot V87.41 PERSONAL HISTORY OF ANTINEOPLASTIC CHEMO 11/19/2016 EUGENIA YI S LATENT PRINT EXAMINER Ot 172.9 MALIG MELANOMA SKIN NOS 11/19/2016 EUGENIA YI S LATENT PRINT EXAMINER Ot 174.9 MALIGN NEOPL BREAST NOS 11/19/2016 EUGENIA YI S LATENT PRINT EXAMINER Ot 724.5 BACKACHE NOS 11/19/2016 EUGENIA YI S LATENT PRINT EXAMINER Ot 172.9 MALIG MELANOMA SKIN NOS 11/19/2016 JUANITO YIAH S LATENT PRINT EXAMINER Ot 174.9 MALIGN NEOPL BREAST NOS 11/19/2016 EUGENIA YI S LATENT PRINT EXAMINER Ot 724.5 BACKACHE NOS 11/19/2016 FRANCISCO ROLON N Ot 172.9 MALIG MELANOMA SKIN NOS 11/19/2016 FRANCISCO ROLON Ot 786.6 CHEST SWELLING/MASS/LUMP 11/19/2016 EUGENIA YI S LATENT PRINT EXAMINER Ot 172.9 MALIG MELANOMA SKIN NOS 11/19/2016 EUGENIA YI S LATENT PRINT EXAMINER Ot V58.69 OTH MED,LT,CURRENT USE 11/19/2016 EUGENIA YI LATENT PRINT EXAMINER Ot V58.83 ENCOUNTER FOR THERAPEUTIC DRUG MONITORIN 11/19/2016 EUGENIA YI LATENT PRINT EXAMINER Ot 172.5 MALIG MELANOMA TRUNK 11/19/2016 EUGENIA YI LATENT PRINT EXAMINER Ot V10.3 HX OF BREAST MALIGNANCY 11/19/2016 EUGENIA YI LATENT PRINT EXAMINER Ot V15.3 HX OF IRRADIATION 11/19/2016 EUGENIA YI LATENT PRINT EXAMINER Ot V58.69 OTH MED,LT,CURRENT USE 11/19/2016 YIEUGENIA Veras LATENT PRINT EXAMINER Ot V87.41 PERSONAL HISTORY OF ANTINEOPLASTIC CHEMO 11/19/2016 YI EUGENIA Veras LATENT PRINT EXAMINER Ot 172.5 MALIG MELANOMA TRUNK 11/19/2016 YIEUGENIA Veras S LATENT PRINT EXAMINER Ot 199.1 MALIGNANT NEOPLASM NOS 11/19/2016 KASSIDY EUGENIA S LATENT PRINT EXAMINER Ot 786.2 COUGH 11/19/2016 YI EUGENIA S LATENT PRINT EXAMINER Ot V10.3 HX OF BREAST MALIGNANCY 11/19/2016 YIEUGENIA Veras LATENT PRINT EXAMINER Ot V15.3 HX OF IRRADIATION 11/19/2016 YIEUGENIA Veras LATENT PRINT EXAMINER Ot V58.69 OTH MED,LT,CURRENT USE 11/19/2016 YI EUGENIA Veras LATENT PRINT EXAMINER Ot V87.41 PERSONAL HISTORY OF ANTINEOPLASTIC CHEMO 11/19/2016 YI EUGENIA Veras LATENT PRINT EXAMINER Ot 172.5 MALIG MELANOMA TRUNK 11/19/2016 YI EUGENIA Veras LATENT PRINT EXAMINER Ot 199.1 MALIGNANT NEOPLASM NOS 11/19/2016 YI EUGENIA S LATENT PRINT EXAMINER Ot 511.9 PLEURAL EFFUSION NOS 11/19/2016 YIEUGENIA Veras S LATENT PRINT EXAMINER Ot V10.3 HX OF BREAST MALIGNANCY 11/19/2016 YIEUGENIA Veras S LATENT PRINT EXAMINER Ot V15.3 HX OF IRRADIATION 11/19/2016 KASSIDY EUGENIA Veras LATENT PRINT EXAMINER Ot V58.69 OTH MED,LT,CURRENT USE 11/19/2016 YIEUGENIA S LATENT PRINT EXAMINER Ot V87.41 PERSONAL HISTORY OF ANTINEOPLASTIC CHEMO 11/19/2016 KASSIDY EUGENIA S LATENT PRINT EXAMINER Ot 780.60 FEVER, UNSPECIFIED 11/19/2016 KASSIDY EUGENIA S LATENT PRINT EXAMINER Ot 786.2 COUGH 11/19/2016 KASSIDY EUGENIA Veras LATENT PRINT EXAMINER Ot 172.5 MALIG MELANOMA TRUNK 11/19/2016 KASSIDY EUGENIA Veras LATENT PRINT EXAMINER Ot 199.1 MALIGNANT NEOPLASM NOS 11/19/2016 KASSIDY EUGENIA Veras LATENT PRINT EXAMINER Ot V10.3 HX OF BREAST MALIGNANCY 11/19/2016 KASSIDY EUGENIA Veras LATENT PRINT EXAMINER Ot V15.3 HX OF IRRADIATION 11/19/2016 KASSIDY EUGENIA Veras LATENT PRINT EXAMINER Ot V58.69 OTH MED,LT,CURRENT USE 11/19/2016 KASSIDY EUGENIA Veras LATENT PRINT EXAMINER Ot V87.41 PERSONAL HISTORY OF ANTINEOPLASTIC CHEMO 11/19/2016 JUANITO YITOD Veras LATENT PRINT EXAMINER Ot 414.00 CORON ATHEROSCLER NOS TYPE VESSEL, NATIV 11/19/2016 KASSIDY EUGENIA Veras LATENT PRINT EXAMINER Ot V58.69 OTH MED,LT,CURRENT USE 11/19/2016 KASSIDY EUGENIA Veras LATENT PRINT EXAMINER Ot V58.83 ENCOUNTER FOR THERAPEUTIC DRUG MONITORIN 11/19/2016 KARLA TRAVIS MD Ot 272.4 HYPERLIPIDEMIA NEC/NOS 11/19/2016 KARLA TRAVIS MD Ot 401.9 HYPERTENSION NOS 11/19/2016 KARLA TRAVIS MD Ot V58.6 9 OTH MED,LT,CURRENT USE 11/19/2016 EUGENIA YI LATENT PRINT EXAMINER Ot 172.5 MALIG MELANOMA TRUNK 11/19/2016 KASSIDY EUGENIA Rito LATENT PRINT EXAMINER Ot 199.1 MALIGNANT NEOPLASM NOS 11/19/2016 KASSIDY EUGENIA Rito LATENT PRINT EXAMINER Ot 511.9 PLEURAL EFFUSION NOS 11/19/2016 EUGENIA YI LATENT PRINT EXAMINER Ot V10.3 HX OF BREAST MALIGNANCY 11/19/2016 JUANITO YITOD Rito LATENT PRINT EXAMINER Ot V15.3 HX OF IRRADIATION 11/19/2016 KASSIDY JUANITOTOD Rito LATENT PRINT EXAMINER Ot V58.69 OTH MED,LT,CURRENT USE 11/19/2016 KASSIDY EUGENIA Veras LATENT PRINT EXAMINER Ot V87.41 PERSONAL HISTORY OF ANTINEOPLASTIC CHEMO 11/19/2016 EUGENIA YI LATENT PRINT EXAMINER Ot 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, UNSPECIFIED 11/19/2016 Ot C43.9 DAVID GNANT MELANOMA OF SKIN, UNSPECIFIED 11/19/2016 EUGENIA YI LATENT PRINT EXAMINER Ot 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, UNSPECIFIED 11/19/2016 KASSIDY EUGENIA Veras LATENT PRINT EXAMINER Ot 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 11/19/2016 KASSIDY EUGENIA Veras LATENT PRINT EXAMINER Ot 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 11/19/2016 KASSIDY EUGENIA Veras LATENT PRINT EXAMINER Ot Z79.899 OTHER [facility] (CURRENT) DRUG THERAPY 11/19/2016 EUGENIA YI LATENT PRINT EXAMINER Ot Z85.3 PERSONAL HISTORY OF MALIGNANT NEOPLASM O 11/19/2016 YI EUGENIA Veras LATENT PRINT EXAMINER Ot Z92.21 PERSONAL HISTORY OF ANTINEOPLASTIC CHEMO 11/19/2016 YI EUGENIA Veras LATENT PRINT EXAMINER Ot Z92.3 PERSONAL HISTORY OF IRRADIATION 11/19/2016 KASSIDY EUGENIA Veras LATENT PRINT EXAMINER Ot 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 11/19/2016 YIJUANITOTOD Veras LATENT PRINT EXAMINER Ot Z79.899 OTHER [facility] (CURRENT) DRUG THERAPY 11/19/2016 KASSIDY EUGENIA Veras LATENT PRINT EXAMINER Ot Z85.3 PERSONAL HISTORY OF MALIGNANT NEOPLASM O 11/19/2016 KASSIDY EUGENIA Veras LATENT PRINT EXAMINER Ot Z92.21 PERSONAL HISTORY OF ANTINEOPLASTIC CHEMO 11/19/2016 YI EUGENIA Veras LATENT PRINT EXAMINER Ot Z92.3 PERSONAL HISTORY OF IRRADIATION 11/19/2016 EUGENIA YI LATENT PRINT EXAMINER Ot 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 11/19/2016 EUGENIA YI LATENT PRINT EXAMINER Ot 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 11/19/2016 KASSIDY EUGENIA Veras LATENT PRINT EXAMINER Ot Z85.3 PERSONAL HISTORY OF MALIGNANT NEOPLASM O 11/19/2016 JUANITO YITOD Veras LATENT PRINT EXAMINER Ot Z92.3 PERSONAL HISTORY OF IRRADIATION 11/19/2016 RIKA WYNNE MD Ot L98.9 DISORDER OF THE SKIN AND SUBCUTANEOUS TI 11/19/2016 RIKA WYNNE MD Ot Z01.818 ENCOUNTER FOR OTHER PREPROCEDURAL EXAMIN 11/19/2016 EUGENIA YI LATENT PRINT EXAMINER Ot 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 11/19/2016 EUGENIA YI LATENT PRINT EXAMINER Ot 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 11/19/2016 EUGENIA YIP Ot C77.3 SEC AND UNSP MALIG NEOPLASM OF AXILLA AN 11/19/2016 JUANITO YIAH S LATENT PRINT EXAMINER Ot Z79.899 OTHER [facility] (CURRENT) DRUG THERAPY 11/19/2016 YIEUGENIA Veras LATENT PRINT EXAMINER Ot Z85.3 PERSONAL HISTORY OF MALIGNANT NEOPLASM O 11/19/2016 EUGENIA YI LATENT PRINT EXAMINER Ot Z92.21 PERSONAL HISTORY OF ANTINEOPLASTIC CHEMO 11/19/2016 YIEUGENIA Veras LATENT PRINT EXAMINER Ot Z92.3 PERSONAL HISTORY OF IRRADIATION 11/19/2016 YIEUGENIA Veras LATENT PRINT EXAMINER Ot 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 11/19/2016 EUGENIA YI LATENT PRINT EXAMINER Ot C77.3 SEC AND UNSP MALIG NEOPLASM OF AXILLA AN 11/19/2016 YIEUGENIA Veras LATENT PRINT EXAMINER Ot Z79.899 OTHER [facility] (CURRENT) DRUG THERAPY 11/19/2016 YIEUGENIA Veras S LATENT PRINT EXAMINER Ot Z85.3 PERSONAL HISTORY OF MALIGNANT NEOPLASM O 11/19/2016 YI EUGENIA S LATENT PRINT EXAMINER Ot Z92.21 PERSONAL HISTORY OF ANTINEOPLASTIC CHEMO 11/19/2016 YIEUGENIA Veras S LATENT PRINT EXAMINER Ot Z92.3 PERSONAL HISTORY OF IRRADIATION 11/19/2016 YIEUGENIA Veras LATENT PRINT EXAMINER Ot 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 11/19/2016 YIEUGENIA Veras LATENT PRINT EXAMINER Ot 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 11/19/2016 EUGENIA YI LATENT PRINT EXAMINER Ot C77.3 SEC AND UNSP MALIG NEOPLASM OF [place] 11/19/2016 YIEUGENIA Veras LATENT PRINT EXAMINER Ot 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 11/19/2016 YIEUGENIA Veras S LATENT PRINT EXAMINER Ot Z85.3 PERSONAL HISTORY OF MALIGNANT NEOPLASM O 11/19/2016 YIEUGENIA Veras LATENT PRINT EXAMINER Ot Z92.21 PERSONAL HISTORY OF ANTINEOPLASTIC CHEMO 11/19/2016 YIEUGENIA Veras S LATENT PRINT EXAMINER Ot Z92.3 PERSONAL HISTORY OF IRRADIATION 11/19/2016 YIEUGENIA Veras LATENT PRINT EXAMINER Ot 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 11/19/2016 YIEUGENIA Veras LATENT PRINT EXAMINER Ot C77.3 SEC AND UNSP MALIG NEOPLASM OF [place] 11/19/2016 KASSIDY EUGENIA S LATENT PRINT EXAMINER Ot Z79.899 OTHER [facility] (CURRENT) DRUG THERAPY 11/19/2016 EUGENIA YI LATENT PRINT EXAMINER Ot Z85.3 PERSONAL HISTORY OF MALIGNANT NEOPLASM O 11/19/2016 EUGENIA YI LATENT PRINT EXAMINER Ot Z92.21 PERSONAL HISTORY OF ANTINEOPLASTIC CHEMO 11/19/2016 EUGENIA YI LATENT PRINT EXAMINER Ot Z92.3 PERSONAL HISTORY OF IRRADIATION 11/19/2016 EUGENIA IY LATENT PRINT EXAMINER Ot 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 11/19/2016 EUGENIA YI LATENT PRINT EXAMINER Ot C77.3 SEC AND UNSP MALIG NEOPLASM OF [place] 11/19/2016 EUGENIA YI LATENT PRINT EXAMINER Ot 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 11/19/2016 YIEUGENIA Veras LATENT PRINT EXAMINER Ot Z85.3 PERSONAL HISTORY OF MALIGNANT NEOPLASM O 11/19/2016 YIEUGENIA Veras LATENT PRINT EXAMINER Ot Z92.21 PERSONAL HISTORY OF ANTINEOPLASTIC CHEMO 11/19/2016 YIEUGENIA Veras S LATENT PRINT EXAMINER Ot Z92.3 PERSONAL HISTORY OF IRRADIATION 11/19/2016 YIEUGENIA Veras LATENT PRINT EXAMINER Ot 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 11/19/2016 EUGENIA YI LATENT PRINT EXAMINER Ot C77.3 SEC AND UNSP MALIG NEOPLASM OF [place] 11/19/2016 YIEUGENIA Veras LATENT PRINT EXAMINER Ot Z79.899 OTHER [facility] (CURRENT) DRUG THERAPY 11/19/2016 YIEUGENIA Veras LATENT PRINT EXAMINER Ot Z85.3 PERSONAL HISTORY OF MALIGNANT NEOPLASM O 11/19/2016 YIEUGENIA Veras LATENT PRINT EXAMINER Ot Z92.21 PERSONAL HISTORY OF ANTINEOPLASTIC CHEMO 11/19/2016 YIEUGENIA Veras S LATENT PRINT EXAMINER Ot Z92.3 PERSONAL HISTORY OF IRRADIATION 11/19/2016 YIEUGENIA Veras S LATENT PRINT EXAMINER Ot M79.89 OTHER SPECIFIED SOFT TISSUE DISORDERS 11/19/2016 YIEUGENIA Veras S LATENT PRINT EXAMINER Ot 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 11/19/2016 YIEUGENIA Veras S LATENT PRINT EXAMINER Ot C77.3 SEC AND UNSP MALIG NEOPLASM OF [place] 11/19/2016 KASSIDY EUGENIA S LATENT PRINT EXAMINER Ot Z79.899 OTHER [facility] (CURRENT) DRUG THERAPY 11/19/2016 EUGENIA YI LATENT PRINT EXAMINER Ot Z85.3 PERSONAL HISTORY OF MALIGNANT NEOPLASM O 11/19/2016 EUGENIA YI LATENT PRINT EXAMINER Ot Z92.21 PERSONAL HISTORY OF ANTINEOPLASTIC CHEMO 11/19/2016 EUGENIA YI LATENT PRINT EXAMINER Ot Z92.3 PERSONAL HISTORY OF IRRADIATION 11/19/2016 KARLA TRAVIS MD Ot 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, UNSPECIFIED 11/19/2016 KARLA TRAVIS MD Ot E78.4 OTHER HYPERLIPIDEMIA 11/19/2016 KARLA TRAVIS MD Ot I10 ESSENTIAL (PRIMARY) HYPERTENSION 11/19/2016 KARLA TRAVIS MD Ot Z79.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 11/19/2016 VERNON FARNSWORTH, ALI FACP CCDS Ot 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 11/19/2016 VERNON FARNSWORTH, ALI FACP CCDS Ot E78.4 OTHER HYPERLIPIDEMIA 11/19/2016 VERNON FARNSWORTH, ALI FACP CCDS Ot I25.10 ATHSCL HEART DISEASE OF [place] CORONARY 11/19/2016 VERNON FARNSWORTH, ALI FACP CCDS Ot I65.23 OCCLUSION AND STENOSIS OF BILATERAL [place] 11/19/2016 VERNON FARNSWORTH, ALI FACP CCDS Ot N18.3 CHRONIC KIDNEY DISEASE, STAGE 3 (MODERAT 11/19/2016 EUGENIA YI LATENT PRINT EXAMINER Ot 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 11/19/2016 EUGENIA YI LATENT PRINT EXAMINER Ot C77.3 SEC AND UNSP MALIG NEOPLASM OF [place] 11/19/2016 EUGENIA YI LATENT PRINT EXAMINER Ot Z79.899 OTHER [facility] (CURRENT) DRUG THERAPY 11/19/2016 EUGENIA YI LATENT PRINT EXAMINER Ot Z85.3 PERSONAL HISTORY OF MALIGNANT NEOPLASM O 11/19/2016 EUGENIA YI LATENT PRINT EXAMINER Ot Z92.21 PERSONAL HISTORY OF ANTINEOPLASTIC CHEMO 11/19/2016 EUGENIA YI LATENT PRINT EXAMINER Ot Z92.3 PERSONAL HISTORY OF IRRADIATION 11/19/2016 EUGENIA YI LATENT PRINT EXAMINER Ot 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 11/19/2016 EUGENIA YI LATENT PRINT EXAMINER Ot C77.3 SEC AND UNSP MALIG NEOPLASM OF [place] 11/19/2016 FRANCISCO ROLON Ot C77.3 SEC AND UNSP MALIG NEOPLASM OF [place] 11/19/2016 ОЛЬГАFRANCISCO Ot M62.9 DISORDER OF MUSCLE, UNSPECIFIED 11/19/2016 FRANCISCO ROLON Ot R94.8 ABNORMAL RESULTS OF FUNCTION STUDIES OF 11/19/2016 KARLA TRAVIS MD Ot R53.8 3 OTHER FATIGUE 11/19/2016 EUGENIA YI S LATENT PRINT EXAMINER Ot E80.6 OTHER DISORDERS OF BILIRUBIN METABOLISM 11/19/2016 EUGENIA YI S LATENT PRINT EXAMINER Ot 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 11/19/2016 EUGENIA YI S LATENT PRINT EXAMINER Ot E80.6 OTHER DISORDERS OF BILIRUBIN METABOLISM 11/19/2016 FRANCISCO ROLON Ot 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 11/19/2016 EUGENIA YI S LATENT PRINT EXAMINER Ot N 63 UNSPECIFIED LUMP IN BREAST 11/19/2016 EUGENIA YI S LATENT PRINT EXAMINER Ot Z85.3 PERSONAL HISTORY OF MALIGNANT NEOPLASM O 11/19/2016 EUGENIA YI S LATENT PRINT EXAMINER Ot 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 11/19/2016 EUGENIA YI S LATENT PRINT EXAMINER Ot R26.9 UNSPECIFIED ABNORMALITIES OF GAIT AND MO 11/19/2016 EUGENIA YI S LATENT PRINT EXAMINER Ot R 42 DIZZINESS AND GIDDINESS 11/19/2016 EUGENIA YI S LATENT PRINT EXAMINER Ot R 51 HEADACHE 11/22/2016 KARLA TRAVIS MD Ot C43.5 9 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 11/22/2016 KARLA TRAVIS MD Ot R42 DIZZINESS AND GIDDINESS 11/22/2016 KARLA TRAVIS MD Ot Z85.3 PERSONAL HISTORY OF MALIGNANT NEOPLASM O 11/25/2016 KARLA TRAVIS MD Ot C43.5 9 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 11/25/2016 KARLA TRAVIS MD Ot R42 DIZZINESS AND GIDDINESS 11/25/2016 KARLA TRAVIS MD Ot Z85.3 PERSONAL HISTORY OF MALIGNANT NEOPLASM O 11/29/2016 EUGENIA YI S LATENT PRINT EXAMINER Ot N 63 UNSPECIFIED LUMP IN BREAST 11/29/2016 YIEUGENIA Veras S LATENT PRINT EXAMINER Ot Z85.3 PERSONAL HISTORY OF MALIGNANT NEOPLASM O 12/02/2016 EUGENIA YI S LATENT PRINT EXAMINER Ot 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 12/02/2016 YIEUGENIA Veras LATENT PRINT EXAMINER Ot R26.9 UNSPECIFIED ABNORMALITIES OF GAIT AND MO 12/02/2016 EUGENIA YI LATENT PRINT EXAMINER Ot R 42 DIZZINESS AND GIDDINESS 12/02/2016 YIEUGENIA Veras LATENT PRINT EXAMINER Ot R 51 HEADACHE 12/07/2016 ANGY HOFFMAN, KARLA Horowitz Ot E03.9 HYPOTHYROIDISM, UNSPECIFIED 12/08/2016 ANGY HOFFMAN, KARLA Horowitz Ot E03.9 HYPOTHYROIDISM, UNSPECIFIED 12/08/2016 ANGY HOFFMAN, KARLA Horowitz Ot E03.9 HYPOTHYROIDISM, UNSPECIFIED 12/08/2016 KARLA TRAVIS MD Ot E03.9 HYPOTHYROIDISM, UNSPECIFIED 12/08/2016 KARLA TRAVIS MD Ot E03.9 HYPOTHYROIDISM, UNSPECIFIED 12/08/2016 KARLA TRAVIS MD Ot E03.9 HYPOTHYROIDISM, UNSPECIFIED 12/08/2016 FRANCISCO ROLON Ot 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 12/08/2016 FRANCISCO ROLON Ot C77.3 SEC AND UNSP MALIG NEOPLASM OF [place] 12/08/2016 FRANCISCO ROLON N Ot C79.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 12/08/2016 FRANCISCO ROLON Ot E03.9 HYPOTHYROIDISM, UNSPECIFIED 12/08/2016 FRANCISCO ROLON Ot E78.5 HYPERLIPIDEMIA, UNSPECIFIED 12/08/2016 FRANCISCO ROLON N Ot I12.9 HYPERTENSIVE CHRONIC KIDNEY DISEASE W ST 12/08/2016 FRANCISCO ROLON Ot I25.10 ATHSCL HEART DISEASE OF [place] CORONARY 12/08/2016 FRANCISCO ROLON Ot N18.3 CHRONIC KIDNEY DISEASE, STAGE 3 (MODERAT 12/08/2016 FRANCISCO ROLON N Ot R42 DIZZINESS AND GIDDINESS 12/08/2016 FRANCISCO ROLON N Ot 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 12/08/2016 FRANCISCO ROLON Ot Z85.3 PERSONAL HISTORY OF MALIGNANT NEOPLASM O 12/08/2016 FRANCISCO ROLON Ot Z92.21 PERSONAL HISTORY OF ANTINEOPLASTIC CHEMO 12/08/2016 FRANCISCO ROLON Ot Z92.3 PERSONAL HISTORY OF IRRADIATION 12/09/2016 FRANCISCO ROLON Ot 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 12/09/2016 FRANCISCO ROLON Ot C77.3 SEC AND UNSP MALIG NEOPLASM OF [place] 12/09/2016 FRANCISCO ROLON Ot C79.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 12/09/2016 FRANCISCO ROLON Ot E03.9 HYPOTHYROIDISM, UNSPECIFIED 12/09/2016 FRANCISCO ROLON Ot E78.5 HYPERLIPIDEMIA, UNSPECIFIED 12/09/2016 FRANCISCO ROLON Ot I12.9 HYPERTENSIVE CHRONIC KIDNEY DISEASE W ST 12/09/2016 FRANCISCO ROLON Ot I25.10 ATHSCL HEART DISEASE OF [place] CORONARY 12/09/2016 FRANCISCO ROOLN Ot N18.3 CHRONIC KIDNEY DISEASE, STAGE 3 (MODERAT 12/09/2016 FRANCISCO ROLON Tarah Ot R42 DIZZINESS AND GIDDINESS 12/09/2016 FRANCISCO ROLON Ot Z79.899 OTHER [facility] (CURRENT) DRUG THERAPY 12/09/2016 FRANCISCO ROLON Ot Z85.3 PERSONAL HISTORY OF MALIGNANT NEOPLASM O 12/09/2016 FRANCISCO ROLON Ot Z92.21 PERSONAL HISTORY OF ANTINEOPLASTIC CHEMO 12/09/2016 FRANCISCO ROLON Tarah Ot Z92.3 PERSONAL HISTORY OF IRRADIATION 12/10/2016 ANGY HOFFMAN, KARLA Horowitz Ot C43.5 9 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 12/10/2016 ANGY HOFFMAN, KARLA Horowitz Ot R42 DIZZINESS AND GIDDINESS 12/10/2016 KARLA TRAVIS MD Ot Z85.3 PERSONAL HISTORY OF MALIGNANT NEOPLASM O 12/16/2016 RIKA WYNNE MD, Ot L98.9 DISORDER OF THE SKIN AND SUBCUTANEOUS TI 12/16/2016 RIKA WYNNE MD Ot Z01.818 ENCOUNTER FOR OTHER PREPROCEDURAL EXAMIN 12/16/2016 RIKA WYNNE MD, Ot Z85.820 PERSONAL HISTORY OF MALIGNANT MELANOMA O 12/22/2016 RIKA WYNNE MD, Ot D22.72 MELANOCYTIC NEVI OF LEFT LOWER LIMB, INC 12/22/2016 RIKA WYNNE MD, Ot D23.72 OTH BENIGN NEOPLASM SKIN/ LEFT LOWER AGUIRRE 12/22/2016 RIKA WYNNE MD Ot E03.9 HYPOTHYROIDISM, UNSPECIFIED 12/22/2016 RIKA WYNNE MD Ot I1 0 ESSENTIAL (PRIMARY) HYPERTENSION 12/22/2016 RIKA WYNNE MD Ot I25.10 ATHSCL HEART DISEASE OF [place] CORONARY 12/22/2016 RIKA WYNNE MD Ot K21.9 GASTRO-ESOPHAGEAL REFLUX DISEASE WITHOUT 12/22/2016 RIKA WYNNE MD Ot L82.1 OTHER SEBORRHEIC KERATOSIS 12/22/2016 RIKA WYNNE MD Ot M79.7 FIBROMYALGIA 12/22/2016 RIKA WYNNE MD Ot Z85.820 PERSONAL HISTORY OF MALIGNANT MELANOMA O 12/22/2016 RIKA WYNNE MD Ot Z95.1 PRESENCE OF AORTOCORONARY BYPASS GRAFT 12/30/2016 RIKA WYNNE MD Ot D22.72 MELANOCYTIC NEVI OF LEFT LOWER LIMB, INC 12/30/2016 RIKA WYNNE MD Ot E03.9 HYPOTHYROIDISM, UNSPECIFIED 12/30/2016 RIKA WYNNE MD Ot L82.1 OTHER SEBORRHEIC KERATOSIS 12/30/2016 RIKA WYNNE MD Ot Z85.820 PERSONAL HISTORY OF MALIGNANT MELANOMA O 12/30/2016 RIKA WYNNE MD Ot Z95.1 PRESENCE OF AORTOCORONARY BYPASS GRAFT 12/30/2016 KARLA TRAVIS MD Ot E03.9 HYPOTHYROIDISM, UNSPECIFIED 01/03/2017 KARLA TRAVIS MD Ot C43.5 9 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 01/03/2017 KARLA TRAVIS MD Ot R42 DIZZINESS AND GIDDINESS 01/03/2017 KARLA TRAVIS MD Ot Z85.3 PERSONAL HISTORY OF MALIGNANT NEOPLASM O 01/21/2017 RIKA WYNNE MD Ot D22.72 MELANOCYTIC NEVI OF LEFT LOWER LIMB, INC 01/21/2017 RIKA WYNNE MD Ot E03.9 HYPOTHYROIDISM, UNSPECIFIED 01/21/2017 RIKA WYNNE MD Ot L82.1 OTHER SEBORRHEIC KERATOSIS 01/21/2017 RIKA WYNNE MD Ot Z85.820 PERSONAL HISTORY OF MALIGNANT MELANOMA O 01/21/2017 RIKA WYNNE MD Ot Z95.1 PRESENCE OF AORTOCORONARY BYPASS GRAFT 02/02/2017 EUGENIA YI Ot 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 02/07/2017 ОЛЬГА, BOBAN N Ot 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 02/07/2017 FRANCISCO ROLON Ot C77.3 SEC AND UNSP MALIG NEOPLASM OF [place] 02/07/2017 FRANCISCO ROLON Ot C79.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 02/07/2017 FRANCISCO ROLON Ot E03.9 HYPOTHYROIDISM, UNSPECIFIED 02/07/2017 FRANCISCO ROLON Ot E78.5 HYPERLIPIDEMIA, UNSPECIFIED 02/07/2017 FRANCISCO ROLON N Ot I12.9 HYPERTENSIVE CHRONIC KIDNEY DISEASE W ST 02/07/2017 FRANCISCO ROLON Ot I25.10 ATHSCL HEART DISEASE OF [place] CORONARY 02/07/2017 FRANCISCO ROLON Ot N18.3 CHRONIC KIDNEY DISEASE, STAGE 3 (MODERAT 02/07/2017 FRANCISCO ROLON Ot R42 DIZZINESS AND GIDDINESS 02/07/2017 FRANCISCO ROLON N Ot Z79.899 OTHER [facility] (CURRENT) DRUG THERAPY 02/07/2017 FRANCISCO ROLON Ot Z85.3 PERSONAL HISTORY OF MALIGNANT NEOPLASM O 02/07/2017 FRANCISCO ROLON Ot Z92.21 PERSONAL HISTORY OF ANTINEOPLASTIC CHEMO 02/07/2017 FRANCISCO ROLON N Ot Z92.3 PERSONAL HISTORY OF IRRADIATION 02/07/2017 EUGENIA YI LATENT PRINT EXAMINER Ot 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 02/07/2017 EUGENIA YI LATENT PRINT EXAMINER Ot 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 02/09/2017 EUGENIA YI LATENT PRINT EXAMINER Ot 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 02/15/2017 SHERRELL HOFFMAN, RIKA Bledsoe Ot D23.72 OTH BENIGN NEOPLASM SKIN/ LEFT LOWER AGUIRRE 02/15/2017 SHERRELL HOFFMAN, RIKA Bledsoe Ot E03.9 HYPOTHYROIDISM, UNSPECIFIED 02/15/2017 SHERRELL HOFFMAN, RIKA Bledsoe Ot I1 0 ESSENTIAL (PRIMARY) HYPERTENSION 02/15/2017 SHERRELL HOFFMAN, RIKA Bledsoe Ot I25.10 ATHSCL HEART DISEASE OF [place] CORONARY 02/15/2017 SHERRELL HOFFMAN, RIKA Bledsoe Ot K21.9 GASTRO-ESOPHAGEAL REFLUX DISEASE WITHOUT 02/15/2017 SHERRELL HOFFMAN, RIKA Bledsoe Ot L82.1 OTHER SEBORRHEIC KERATOSIS 02/15/2017 SHERRELL HOFFMAN, RIKA Bledsoe Ot M19.90 UNSPECIFIED OSTEOARTHRITIS, UNSPECIFIED 02/15/2017 SHERRELL HOFFMAN, RIKA Bledsoe Ot M79.7 FIBROMYALGIA 02/15/2017 RIKA WYNNE MD Ot Z85.820 PERSONAL HISTORY OF MALIGNANT MELANOMA O 02/15/2017 SHERRELL HOFFMAN, RIKA Bledsoe Ot Z95.1 PRESENCE OF AORTOCORONARY BYPASS GRAFT 02/15/2017 SHERRELL HOFFMAN, RIKA Bledsoe Ot D23.72 OTH BENIGN NEOPLASM SKIN/ LEFT LOWER AGUIRRE 02/15/2017 RIKA WYNNE MD Ot E03.9 HYPOTHYROIDISM, UNSPECIFIED 02/15/2017 RIKA WYNNE MD Ot I1 0 ESSENTIAL (PRIMARY) HYPERTENSION 02/15/2017 RIKA WYNNE MD Ot I25.10 ATHSCL HEART DISEASE OF [place] CORONARY 02/15/2017 RIKA WYNNE MD Ot K21.9 GASTRO-ESOPHAGEAL REFLUX DISEASE WITHOUT 02/15/2017 RIKA WYNNE MD Ot L82.1 OTHER SEBORRHEIC KERATOSIS 02/15/2017 SHERRELL HOFFMAN, RIKA Bledsoe Ot M19.90 UNSPECIFIED OSTEOARTHRITIS, UNSPECIFIED 02/15/2017 RIKA WYNNE MD Ot M79.7 FIBROMYALGIA 02/15/2017 RIKA WYNNE MD Ot Z85.820 PERSONAL HISTORY OF MALIGNANT MELANOMA O 02/15/2017 RIKA WYNNE MD Ot Z95.1 PRESENCE OF AORTOCORONARY BYPASS GRAFT 02/23/2017 FRANCISCO ROLON Ot 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 02/23/2017 FRANCISCO ROLON Ot C77.3 SEC AND UNSP MALIG NEOPLASM OF [place] 02/23/2017 FRANCISCO ROLON Ot C79.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 02/23/2017 FRANCISCO ROLON Ot E03.9 HYPOTHYROIDISM, UNSPECIFIED 02/23/2017 FRANCISCO ROLON Ot E78.5 HYPERLIPIDEMIA, UNSPECIFIED 02/23/2017 FRANCISCO ROLON Ot I12.9 HYPERTENSIVE CHRONIC KIDNEY DISEASE W ST 02/23/2017 FRANCISCO ROLON Ot I25.10 ATHSCL HEART DISEASE OF [place] CORONARY 02/23/2017 FRANCISCO ROLON Ot N18.3 CHRONIC KIDNEY DISEASE, STAGE 3 (MODERAT 02/23/2017 ОЛЬГАFRANCISCO N Ot R42 DIZZINESS AND GIDDINESS 02/23/2017 ОЛЬГАDIANAAN N Ot 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 02/23/2017 ОЛЬГА, DIANAPAPA N Ot Z85.3 PERSONAL HISTORY OF MALIGNANT NEOPLASM O 02/23/2017 ОЛЬГАFRANCISCO MAE N Ot Z92.21 PERSONAL HISTORY OF ANTINEOPLASTIC CHEMO 02/23/2017 ОЛЬГА, FRANCISCO N Ot Z92.3 PERSONAL HISTORY OF IRRADIATION 03/07/2017 ОЛЬГА FRANCISCO N Ot 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 03/07/2017 ОЛЬГА BOBAN N Ot C77.3 SEC AND UNSP MALIG NEOPLASM OF [place] 03/07/2017 ОЛЬГА BOBPAPA N Ot C79.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 03/07/2017 ОЛЬГА DIANAPAPA N Ot E03.9 HYPOTHYROIDISM, UNSPECIFIED 03/07/2017 ОЛЬГА, FRANCISCO N Ot E78.5 HYPERLIPIDEMIA, UNSPECIFIED 03/07/2017 ОЛЬГА FRANCISCO N Ot I12.9 HYPERTENSIVE CHRONIC KIDNEY DISEASE W ST 03/07/2017 ОЛЬГА, DIANAAN N Ot I25.10 ATHSCL HEART DISEASE OF [place] CORONARY 03/07/2017 ОЛЬГА, FRANCISCO N Ot N18.3 CHRONIC KIDNEY DISEASE, STAGE 3 (MODERAT 03/07/2017 ОЛЬГА DIANAPAPA N Ot R42 DIZZINESS AND GIDDINESS 03/07/2017 ОЛЬГА, DIANAPAPA N Ot Z79.899 OTHER [facility] (CURRENT) DRUG THERAPY 03/07/2017 ОЛЬГА FRANCISCO N Ot Z85.3 PERSONAL HISTORY OF MALIGNANT NEOPLASM O 03/07/2017 ОЛЬГАFRANCISCO N Ot Z92.21 PERSONAL HISTORY OF ANTINEOPLASTIC CHEMO 03/07/2017 ОЛЬГА FRANCISCO N Ot Z92.3 PERSONAL HISTORY OF IRRADIATION 03/11/2017 ОЛЬГА FRANCISCO N Ot 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 03/11/2017 ОЛЬГА FRANCISCO N Ot C77.3 SEC AND UNSP MALIG NEOPLASM OF [place] 03/11/2017 ОЛЬГА DIANAAN N Ot C79.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 03/11/2017 ОЛЬГА DIANAAN N Ot E03.9 HYPOTHYROIDISM, UNSPECIFIED 03/11/2017 ОЛЬГАFRANCISCO MAE N Ot E78.5 HYPERLIPIDEMIA, UNSPECIFIED 03/11/2017 ОЛЬГА DIANAPAPA N Ot I12.9 HYPERTENSIVE CHRONIC KIDNEY DISEASE W ST 03/11/2017 ОЛЬГА, DIANAAN N Ot I25.10 ATHSCL HEART DISEASE OF [place] CORONARY 03/11/2017 ОЛЬГА, DIANAPAPA N Ot N18.3 CHRONIC KIDNEY DISEASE, STAGE 3 (MODERAT 03/11/2017 ОЛЬГА, FRANCISCO N Ot R42 DIZZINESS AND GIDDINESS 03/11/2017 ОЛЬГА BOBAN N Ot Z79.899 OTHER [facility] (CURRENT) DRUG THERAPY 03/11/2017 ОЛЬГА BOBAN N Ot Z85.3 PERSONAL HISTORY OF MALIGNANT NEOPLASM O 03/11/2017 ОЛЬГАFRANCISCO N Ot Z92.21 PERSONAL HISTORY OF ANTINEOPLASTIC CHEMO 03/11/2017 ОЛЬГАFRANCISCO N Ot Z92.3 PERSONAL HISTORY OF IRRADIATION 03/24/2017 EUGENIA YI LATENT PRINT EXAMINER Ot 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 03/25/2017 ОЛЬГА FRANCISCO N Ot 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 03/25/2017 ОЛЬГА, FRANCISCO N Ot C77.3 SEC AND UNSP MALIG NEOPLASM OF [place] 03/25/2017 ОЛЬГА BOBPAPA N Ot C79.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 03/25/2017 FRANCISCO ROLON N Ot E03.9 HYPOTHYROIDISM, UNSPECIFIED 03/25/2017 ОЛЬГАFRANCISCO MAE N Ot E78.5 HYPERLIPIDEMIA, UNSPECIFIED 03/25/2017 ОЛЬГА FRANCISCO N Ot I12.9 HYPERTENSIVE CHRONIC KIDNEY DISEASE W ST 03/25/2017 ОЛЬГА DIANAPAPA N Ot I25.10 ATHSCL HEART DISEASE OF [place] CORONARY 03/25/2017 ОЛЬГА, DIANAPAPA N Ot N18.3 CHRONIC KIDNEY DISEASE, STAGE 3 (MODERAT 03/25/2017 ОЛЬГАFRANCISCO N Ot R42 DIZZINESS AND GIDDINESS 03/25/2017 ОЛЬГА, BOBAN N Ot Z79.899 OTHER [facility] (CURRENT) DRUG THERAPY 03/25/2017 ОЛЬГАDIANAAN N Ot Z85.3 PERSONAL HISTORY OF MALIGNANT NEOPLASM O 03/25/2017 ОЛЬГАFRANCISCO N Ot Z92.21 PERSONAL HISTORY OF ANTINEOPLASTIC CHEMO 03/25/2017 ОЛЬГА DIANAPAPA N Ot Z92.3 PERSONAL HISTORY OF IRRADIATION 04/01/2017 KARLA TRAVIS MD Ot E78.5 HYPERLIPIDEMIA, UNSPECIFIED 04/08/2017 ОЛЬГА, FRANCISCO N Ot 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 04/08/2017 ОЛЬГА FRANCISCO N Ot C77.3 SEC AND UNSP MALIG NEOPLASM OF [place] 04/08/2017 ОЛЬГА FRANCISCO Rascon Ot C79.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 04/08/2017 ОЛЬГА FRANCISCO N Ot E03.9 HYPOTHYROIDISM, UNSPECIFIED 04/08/2017 ОЛЬГА, FRANCISCO N Ot E78.5 HYPERLIPIDEMIA, UNSPECIFIED 04/08/2017 ОЛЬГАFRANCISCO N Ot I12.9 HYPERTENSIVE CHRONIC KIDNEY DISEASE W ST 04/08/2017 ОЛЬГАFRANCISCO N Ot I25.10 ATHSCL HEART DISEASE OF [place] CORONARY 04/08/2017 ОЛЬГАFRANCISCO N Ot N18.3 CHRONIC KIDNEY DISEASE, STAGE 3 (MODERAT 04/08/2017 ОЛЬГАFRANCISCO Ot R42 DIZZINESS AND GIDDINESS 04/08/2017 ОЛЬГАFRANCISCO N Ot 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 04/08/2017 ОЛЬГАFRANCISCO N Ot Z85.3 PERSONAL HISTORY OF MALIGNANT NEOPLASM O 04/08/2017 ОЛЬГАFRANCISCO Ot Z92.21 PERSONAL HISTORY OF ANTINEOPLASTIC CHEMO 04/08/2017 ОЛЬГА FRANCISCO N Ot Z92.3 PERSONAL HISTORY OF IRRADIATION 04/11/2017 EUGENIA YI Ot 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 04/16/2017 ОЛЬГАFRANCISCO Ot 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 04/16/2017 ОЛЬГАFRANCISCO N Ot C77.3 SEC AND UNSP MALIG NEOPLASM OF [place] 04/16/2017 ОЛЬГАFRANCISCO N Ot C79.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 04/16/2017 ОЛЬГА FRANCISCO N Ot E03.9 HYPOTHYROIDISM, UNSPECIFIED 04/16/2017 ОЛЬГА, FRANCISCO N Ot E78.5 HYPERLIPIDEMIA, UNSPECIFIED 04/16/2017 ОЛЬГАFRANCISCO N Ot I12.9 HYPERTENSIVE CHRONIC KIDNEY DISEASE W ST 04/16/2017 ОЛЬГА, BOBAN N Ot I25.10 ATHSCL HEART DISEASE OF [place] CORONARY 04/16/2017 ОЛЬГА, BOBAN N Ot N18.3 CHRONIC KIDNEY DISEASE, STAGE 3 (MODERAT 04/16/2017 ОЛЬГА BOBAN N Ot R42 DIZZINESS AND GIDDINESS 04/16/2017 ОЛЬГА, BOBAN N Ot Z79.899 OTHER [facility] (CURRENT) DRUG THERAPY 04/16/2017 ОЛЬГА BOBAN N Ot Z85.3 PERSONAL HISTORY OF MALIGNANT NEOPLASM O 04/16/2017 ОЛЬГА, BOBAN N Ot Z92.21 PERSONAL HISTORY OF ANTINEOPLASTIC CHEMO 04/16/2017 ОЛЬГА, BOBAN N Ot Z92.3 PERSONAL HISTORY OF IRRADIATION 04/21/2017 ОЛЬГА, BOBAN N Ot 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 04/21/2017 ОЛЬГА, BOBAN N Ot C77.3 SEC AND UNSP MALIG NEOPLASM OF [place] 04/21/2017 ОЛЬГА DIANAAN N Ot C79.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 04/21/2017 ОЛЬГАFRANCISCO MAE N Ot E03.9 HYPOTHYROIDISM, UNSPECIFIED 04/21/2017 ОЛЬГА BOBAN N Ot E78.5 HYPERLIPIDEMIA, UNSPECIFIED 04/21/2017 ОЛЬГА, BOBAN N Ot I12.9 HYPERTENSIVE CHRONIC KIDNEY DISEASE W ST 04/21/2017 ОЛЬГА BOBAN N Ot I25.10 ATHSCL HEART DISEASE OF [place] CORONARY 04/21/2017 ОЛЬГАFRANCISCO N Ot N18.3 CHRONIC KIDNEY DISEASE, STAGE 3 (MODERAT 04/21/2017 ОЛЬГА BOBAN N Ot R42 DIZZINESS AND GIDDINESS 04/21/2017 ОЛЬГА BOBAN N Ot Z79.899 OTHER [facility] (CURRENT) DRUG THERAPY 04/21/2017 ОЛЬГА BOBAN N Ot Z85.3 PERSONAL HISTORY OF MALIGNANT NEOPLASM O 04/21/2017 ОЛЬГА BOBAN N Ot Z92.21 PERSONAL HISTORY OF ANTINEOPLASTIC CHEMO 04/21/2017 ОЛЬГА, BOBAN N Ot Z92.3 PERSONAL HISTORY OF IRRADIATION 04/22/2017 ОЛЬГА BOBAN N Ot 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 04/22/2017 ОЛЬГА, DIANAAN N Ot C77.3 SEC AND UNSP MALIG NEOPLASM OF [place] 04/22/2017 ОЛЬГА, BOBAN N Ot C79.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 04/22/2017 FRANCISCO ROLON N Ot E03.9 HYPOTHYROIDISM, UNSPECIFIED 04/22/2017 FRANCISCO ROLON N Ot E78.5 HYPERLIPIDEMIA, UNSPECIFIED 04/22/2017 FRANCISCO ROLON N Ot I12.9 HYPERTENSIVE CHRONIC KIDNEY DISEASE W ST 04/22/2017 FRANCISCO ROLON N Ot I25.10 ATHSCL HEART DISEASE OF [place] CORONARY 04/22/2017 FRANCISCO ROLON N Ot N18.3 CHRONIC KIDNEY DISEASE, STAGE 3 (MODERAT 04/22/2017 FRANCISCO ROLON N Ot R42 DIZZINESS AND GIDDINESS 04/22/2017 FRANCISCO ROLON N Ot 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 04/22/2017 FRANCISCO ROLON N Ot Z85.3 PERSONAL HISTORY OF MALIGNANT NEOPLASM O 04/22/2017 FRANCISCO ROLON N Ot Z92.21 PERSONAL HISTORY OF ANTINEOPLASTIC CHEMO 04/22/2017 ОЛЬГАDIANA MAEPAPA N Ot Z92.3 PERSONAL HISTORY OF IRRADIATION 05/13/2017 GORDON WEATHERS MD Ot 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 05/13/2017 GORDON WEATHERS MD, Ot C77.3 SEC AND UNSP MALIG NEOPLASM OF [place] 05/13/2017 GORDON WEATHERS MD, Ot C79.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 05/13/2017 GORDON WEATHERS MD Ot E03.9 HYPOTHYROIDISM, UNSPECIFIED 05/13/2017 GORDON WEATHERS MD Ot E78.5 HYPERLIPIDEMIA, UNSPECIFIED 05/13/2017 GORDON WEATHERS MD Ot I12.9 HYPERTENSIVE CHRONIC KIDNEY DISEASE W ST 05/13/2017 GORDON WEATHERS MD Ot I25.10 ATHSCL HEART DISEASE OF [place] CORONARY 05/13/2017 GORDON WEATHERS MD Ot N18.3 CHRONIC KIDNEY DISEASE, STAGE 3 (MODERAT 05/13/2017 GORDON WEATHERS MD Ot R42 DIZZINESS AND GIDDINESS 05/13/2017 GORDON WEATHERS MD Ot Z79.899 OTHER [facility] (CURRENT) DRUG THERAPY 05/13/2017 GORDON WEATHERS MD Ot Z85.3 PERSONAL HISTORY OF MALIGNANT NEOPLASM O 05/13/2017 GORDON WEATHERS MD Ot Z92.21 PERSONAL HISTORY OF ANTINEOPLASTIC CHEMO 05/13/2017 GORDON WEATHERS MD Ot Z92.3 PERSONAL HISTORY OF IRRADIATION 05/17/2017 EUGENIA YI LATENT PRINT EXAMINER Ot 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 05/18/2017 VERNON HOFFMAN FACC, SHAQ FACP CCDS Ot E78.4 OTHER HYPERLIPIDEMIA 05/18/2017 VERNON HOFFMAN FACC, ALI FACP CCDS Ot I10 ESSENTIAL (PRIMARY) HYPERTENSION 05/18/2017 VERNON HOFFMAN FACC, ALI FACP CCDS Ot I25.10 ATHSCL HEART DISEASE OF [place] CORONARY 05/18/2017 VERNON HOFFMAN FACC, ALI FACP CCDS Ot I65.23 OCCLUSION AND STENOSIS OF BILATERAL [place] 05/18/2017 VERNON HOFFMAN FACC, ALI FACP CCDS Ot R06.09 OTHER FORMS OF DYSPNEA 05/18/2017 VERNON HOFFMAN FACC, ALI FACP CCDS Ot R53.1 WEAKNESS 06/01/2017 VERNON HOFFMAN FACC, ALI FACP CCDS Ot E03.9 HYPOTHYROIDISM, UNSPECIFIED 06/01/2017 VERNON HOFFMAN FACC, ALI FACP CCDS Ot E78.5 HYPERLIPIDEMIA, UNSPECIFIED 06/01/2017 VERNON HOFFMAN FACC, ALI FACP CCDS Ot E87.1 HYPO-OSMOLALITY AND HYPONATREMIA 06/01/2017 VERNON HOFFMAN FACC, ALI FACP CCDS Ot I12.9 HYPERTENSIVE CHRONIC KIDNEY DISEASE W ST 06/01/2017 VERNON HOFFMAN FACC, ALI FACP CCDS Ot I25.10 ATHSCL HEART DISEASE OF [place] CORONARY 06/01/2017 VERNON HOFFMAN FACC, ALI FACP CCDS Ot I73.9 PERIPHERAL VASCULAR DISEASE, UNSPECIFIED 06/01/2017 VERNON HOFFMAN FACC, ALI FACP CCDS Ot M79.89 OTHER SPECIFIED SOFT TISSUE DISORDERS 06/01/2017 VERNON HOFFMAN FACC, ALI FACP CCDS Ot N18.3 CHRONIC KIDNEY DISEASE, STAGE 3 (MODERAT 06/01/2017 VERNON HOFFMAN FACC, ALI FACP CCDS Ot R63.4 ABNORMAL WEIGHT LOSS 06/01/2017 VERNON HOFFMAN FACC, ALI FACP CCDS Ot 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 06/01/2017 VERNON HOFFMAN FACC, ALI FACP CCDS Ot Z85.3 PERSONAL HISTORY OF MALIGNANT NEOPLASM O 06/01/2017 VERNON HOFFMAN FACC, ALI FACP CCDS Ot Z85.820 PERSONAL HISTORY OF MALIGNANT MELANOMA O 06/01/2017 VERNON FARNSWORTH, [facility] CCDS Ot Z88.1 ALLERGY STATUS TO OTHER ANTIBIOTIC AGENT 06/01/2017 VERNON HOFFMAN FACC, [facility] CCDS Ot Z88.5 ALLERGY STATUS TO NARCOTIC AGENT STATUS 06/01/2017 [facility]WORTH, [facility] CCD[facility] Ot Z88.7 ALLERGY STATUS TO SERUM AND VACCINE STAT 06/01/2017 VERNON FARNSWORTH, [facility] CCDS Ot Z92.21 PERSONAL HISTORY OF ANTINEOPLASTIC CHEMO 06/01/2017 VERNON FARNSWORTH, [facility] CCDS Ot Z95.1 PRESENCE OF AORTOCORONARY BYPASS GRAFT 06/03/2017 Ot 174.9 DAVID GN NEOPL BREAST NOS 06/03/2017 Ot V76.11 SCR N MAMMO-HIGH RISK PT, MALIGNANT NEOPL 06/03/2017 Ot 375.15 TEA R FILM INSUFFIC NOS 06/03/2017 Ot 527.7 SALI VARY SECRETION DIS 06/03/2017 Ot V10.3 HX O F BREAST MALIGNANCY 06/03/2017 Ot V58.69 OT MED,LT,CURRENT USE 06/03/2017 Ot V67.1 RADI OTHERAPY FOLLOW-UP 06/03/2017 Ot V67.2 CHEM OTHERAPY FOLLOW-UP 06/03/2017 Ot 719.46 RACHEL NT PAIN-L/LEG 06/03/2017 Ot 473.9 ENGINEERING SURVEYOR MIRI SINUSITIS NOS 06/03/2017 Ot 780.4 DIZZ INESS AND GIDDINESS 06/03/2017 Ot V10.3 HX O F BREAST MALIGNANCY 06/03/2017 GILBERT HOWARD APRN Ot V76.12 OTH SCREEN MAMMO-MALIGN NEOPLASM OF JOSE 06/03/2017 ALEXSANDER LUNA LATENT PRINT EXAMINER Ot 414.00 CORON ATHEROSCLER NOS TYPE VESSEL, NATIV 06/03/2017 ALEXSANDER LUNA LATENT PRINT EXAMINER Ot 786.09 RESPIRATORY ABNORM NEC 06/03/2017 ALEXSANDER LUNA LATENT PRINT EXAMINER Ot V45.81 AORTOCORONARY BYPASS 06/03/2017 FRANCISCO ROLON Ot 174.9 MALIGN NEOPL BREAST NOS 06/03/2017 SHERRELL HOFFMAN, RIKA Bledsoe Ot 172.5 MALIG MELANOMA TRUNK 06/03/2017 SHERRELL HOFFMAN, RIKA Bledsoe Ot 709.9 SKIN DISORDER NOS 06/03/2017 SHERRELL HOFFMAN, RIKA Bledsoe Ot V72.63 PRE-PROCEDURAL LABORATORY EXAMINATION 06/03/2017 SHERRELL HOFFMAN, RIKA Bledsoe Ot V74.8 SCREEN-BACTERIAL DIS NEC 06/03/2017 FRANCISCO ROLON Ot 172.5 MALIG MELANOMA TRUNK 06/03/2017 EUGENIA YI LATENT PRINT EXAMINER Ot 172.5 MALIG MELANOMA TRUNK 06/03/2017 EUGENIA YI S LATENT PRINT EXAMINER Ot 724.2 LUMBAGO 06/03/2017 EUGENIA YI S LATENT PRINT EXAMINER Ot 781.2 ABNORMALITY OF GAIT 06/03/2017 EUGENIA YI S LATENT PRINT EXAMINER Ot 784.0 HEADACHE 06/03/2017 EUGENIA YI S LATENT PRINT EXAMINER Ot V10.3 HX OF BREAST MALIGNANCY 06/03/2017 EUGENIA YI S LATENT PRINT EXAMINER Ot V15.3 HX OF IRRADIATION 06/03/2017 EUGENIA YI LATENT PRINT EXAMINER Ot V58.69 OTH MED,LT,CURRENT USE 06/03/2017 EUGENIA YI S LATENT PRINT EXAMINER Ot V87.41 PERSONAL HISTORY OF ANTINEOPLASTIC CHEMO 06/03/2017 EUGENIA YI S LATENT PRINT EXAMINER Ot 172.9 MALIG MELANOMA SKIN NOS 06/03/2017 EUGENIA YI S LATENT PRINT EXAMINER Ot 781.2 ABNORMALITY OF GAIT 06/03/2017 EUGENIA YI S LATENT PRINT EXAMINER Ot 784.0 HEADACHE 06/03/2017 EUGENIA YI S LATENT PRINT EXAMINER Ot 794.9 ABN FUNCTION STUDY NEC 06/03/2017 EUGENIA YI LATENT PRINT EXAMINER Ot V76.12 OTH SCREEN MAMMO-MALIGN NEOPLASM OF JOSE 06/03/2017 Ot 172.9 DAVID G MELANOMA SKIN NOS 06/03/2017 Ot V76.12 OTH SCREEN MAMMO- MALIGN NEOPLASM OF JOSE 06/03/2017 FRANCISCO ORLON Ot 172.9 MALIG MELANOMA SKIN NOS 06/03/2017 FRANCISCO ROLON Ot V10.3 HX OF BREAST MALIGNANCY 06/03/2017 ANGY HOFFMAN, KARLA Horowitz Ot 719.4 7 JOINT PAIN-ANKLE 06/03/2017 EUGENIA YI S LATENT PRINT EXAMINER Ot 172.5 MALIG MELANOMA TRUNK 06/03/2017 EUGENIA YI S LATENT PRINT EXAMINER Ot V10.3 HX OF BREAST MALIGNANCY 06/03/2017 EUGENIA YI LATENT PRINT EXAMINER Ot V15.3 HX OF IRRADIATION 06/03/2017 EUGENIA YI LATENT PRINT EXAMINER Ot V58.69 OTH MED,LT,CURRENT USE 06/03/2017 EUGENIA YI LATENT PRINT EXAMINER Ot V87.41 PERSONAL HISTORY OF ANTINEOPLASTIC CHEMO 06/03/2017 EUGENIA YI LATENT PRINT EXAMINER Ot 172.9 MALIG MELANOMA SKIN NOS 06/03/2017 EUGENIA YI LATENT PRINT EXAMINER Ot 174.9 MALIGN NEOPL BREAST NOS 06/03/2017 EUGENIA YI LATENT PRINT EXAMINER Ot 724.5 BACKACHE NOS 06/03/2017 EUGENIA YI LATENT PRINT EXAMINER Ot 172.9 MALIG MELANOMA SKIN NOS 06/03/2017 EUGENIA YI LATENT PRINT EXAMINER Ot 174.9 MALIGN NEOPL BREAST NOS 06/03/2017 EUGENIA YI LATENT PRINT EXAMINER Ot 724.5 BACKACHE NOS 06/03/2017 FRANCISCO ROLON N Ot 172.9 MALIG MELANOMA SKIN NOS 06/03/2017 FRANCISCO ROLON N Ot 786.6 CHEST SWELLING/MASS/LUMP 06/03/2017 EUGENIA YI LATENT PRINT EXAMINER Ot 172.9 MALIG MELANOMA SKIN NOS 06/03/2017 EUGENIA YI LATENT PRINT EXAMINER Ot V58.69 OTH MED,LT,CURRENT USE 06/03/2017 EUGENIA YI LATENT PRINT EXAMINER Ot V58.83 ENCOUNTER FOR THERAPEUTIC DRUG MONITORIN 06/03/2017 EUGENIA YI LATENT PRINT EXAMINER Ot 172.5 MALIG MELANOMA TRUNK 06/03/2017 EUGENIA YI LATENT PRINT EXAMINER Ot V10.3 HX OF BREAST MALIGNANCY 06/03/2017 EUGENIA YI LATENT PRINT EXAMINER Ot V15.3 HX OF IRRADIATION 06/03/2017 EUGENIA YI LATENT PRINT EXAMINER Ot V58.69 OTH MED,LT,CURRENT USE 06/03/2017 EUGENIA YI LATENT PRINT EXAMINER Ot V87.41 PERSONAL HISTORY OF ANTINEOPLASTIC CHEMO 06/03/2017 EUGENIA YI LATENT PRINT EXAMINER Ot 172.5 MALIG MELANOMA TRUNK 06/03/2017 EUGENIA YI LATENT PRINT EXAMINER Ot 199.1 MALIGNANT NEOPLASM NOS 06/03/2017 EUGENIA YI LATENT PRINT EXAMINER Ot 786.2 COUGH 06/03/2017 YI, HILAH S LATENT PRINT EXAMINER Ot V10.3 HX OF BREAST MALIGNANCY 06/03/2017 YIEUGENIA Veras LATENT PRINT EXAMINER Ot V15.3 HX OF IRRADIATION 06/03/2017 YIEUGENIA Veras LATENT PRINT EXAMINER Ot V58.69 OTH MED,LT,CURRENT USE 06/03/2017 YIEUGENIA Veras LATENT PRINT EXAMINER Ot V87.41 PERSONAL HISTORY OF ANTINEOPLASTIC CHEMO 06/03/2017 KASSIDY EUGENIA Rito LATENT PRINT EXAMINER Ot 172.5 MALIG MELANOMA TRUNK 06/03/2017 KASSIDY EUGENIA S LATENT PRINT EXAMINER Ot 199.1 MALIGNANT NEOPLASM NOS 06/03/2017 KASSIDY EUGENIA Veras LATENT PRINT EXAMINER Ot 511.9 PLEURAL EFFUSION NOS 06/03/2017 KASSIDY EUGENIA Veras LATENT PRINT EXAMINER Ot V10.3 HX OF BREAST MALIGNANCY 06/03/2017 KASSIDY EUGENIA Rito LATENT PRINT EXAMINER Ot V15.3 HX OF IRRADIATION 06/03/2017 KASSIDY EUGENIA Veras LATENT PRINT EXAMINER Ot V58.69 OTH MED,LT,CURRENT USE 06/03/2017 JUANITO YITOD Rito LATENT PRINT EXAMINER Ot V87.41 PERSONAL HISTORY OF ANTINEOPLASTIC CHEMO 06/03/2017 JUANITO YITOD Rito LATENT PRINT EXAMINER Ot 780.60 FEVER, UNSPECIFIED 06/03/2017 KASSIDY EUGENIA Veras LATENT PRINT EXAMINER Ot 786.2 COUGH 06/03/2017 KASSIDY EUGENIA Rito LATENT PRINT EXAMINER Ot 172.5 MALIG MELANOMA TRUNK 06/03/2017 YI EUGENAI Veras LATENT PRINT EXAMINER Ot 199.1 MALIGNANT NEOPLASM NOS 06/03/2017 EUGENIA YI LATENT PRINT EXAMINER Ot V10.3 HX OF BREAST MALIGNANCY 06/03/2017 JUANITO YITOD Rito LATENT PRINT EXAMINER Ot V15.3 HX OF IRRADIATION 06/03/2017 EUGENIA YI LATENT PRINT EXAMINER Ot V58.69 OTH MED,LT,CURRENT USE 06/03/2017 KASSIDY EUGENIA Veras LATENT PRINT EXAMINER Ot V87.41 PERSONAL HISTORY OF ANTINEOPLASTIC CHEMO 06/03/2017 EUGENIA YI LATENT PRINT EXAMINER Ot 414.00 CORON ATHEROSCLER NOS TYPE VESSEL, NATIV 06/03/2017 EUGENIA YI LATENT PRINT EXAMINER Ot V58.69 OTH MED,LT,CURRENT USE 06/03/2017 EUGENIA YI LATENT PRINT EXAMINER Ot V58.83 ENCOUNTER FOR THERAPEUTIC DRUG MONITORIN 06/03/2017 KARLA TRAVIS MD Ot 272.4 HYPERLIPIDEMIA NEC/NOS 06/03/2017 KARLA TRAVIS MD Ot 401.9 HYPERTENSION NOS 06/03/2017 KARLA TRAVIS MD Ot V58.6 9 OTH MED,LT,CURRENT USE 06/03/2017 EUGENIA YI LATENT PRINT EXAMINER Ot 172.5 MALIG MELANOMA TRUNK 06/03/2017 EUGENIA YI LATENT PRINT EXAMINER Ot 199.1 MALIGNANT NEOPLASM NOS 06/03/2017 EUGENIA YI LATENT PRINT EXAMINER Ot 511.9 PLEURAL EFFUSION NOS 06/03/2017 EUGENIA YI LATENT PRINT EXAMINER Ot V10.3 HX OF BREAST MALIGNANCY 06/03/2017 EUGENIA YI LATENT PRINT EXAMINER Ot V15.3 HX OF IRRADIATION 06/03/2017 EUGENIA YI LATENT PRINT EXAMINER Ot V58.69 OTH MED,LT,CURRENT USE 06/03/2017 EUGENIA YI LATENT PRINT EXAMINER Ot V87.41 PERSONAL HISTORY OF ANTINEOPLASTIC CHEMO 06/03/2017 EUGENIA YI LATENT PRINT EXAMINER Ot 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, UNSPECIFIED 06/03/2017 Ot C43.9 DAVID GNANT MELANOMA OF SKIN, UNSPECIFIED 06/03/2017 EUGENIA YI LATENT PRINT EXAMINER Ot 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, UNSPECIFIED 06/03/2017 EUGENIA YI LATENT PRINT EXAMINER Ot 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 06/03/2017 EUGENIA YI LATENT PRINT EXAMINER Ot 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 06/03/2017 EUGENIA YI LATENT PRINT EXAMINER Ot 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 06/03/2017 EUGENIA YI LATENT PRINT EXAMINER Ot Z85.3 PERSONAL HISTORY OF MALIGNANT NEOPLASM O 06/03/2017 EUGENIA YI LATENT PRINT EXAMINER Ot Z92.21 PERSONAL HISTORY OF ANTINEOPLASTIC CHEMO 06/03/2017 EUGENIA YI LATENT PRINT EXAMINER Ot Z92.3 PERSONAL HISTORY OF IRRADIATION 06/03/2017 EUGENIA YI LATENT PRINT EXAMINER Ot 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 06/03/2017 EUGENIA YI LATENT PRINT EXAMINER Ot Z79.899 OTHER FCI (CURRENT) DRUG THERAPY 06/03/2017 EUGENIA YI LATENT PRINT EXAMINER Ot Z85.3 PERSONAL HISTORY OF MALIGNANT NEOPLASM O 06/03/2017 EUGENIA YI LATENT PRINT EXAMINER Ot Z92.21 PERSONAL HISTORY OF ANTINEOPLASTIC CHEMO 06/03/2017 EUGENIA YI LATENT PRINT EXAMINER Ot Z92.3 PERSONAL HISTORY OF IRRADIATION 06/03/2017 EUGENIA YI LATENT PRINT EXAMINER Ot 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 06/03/2017 EUGENIA YI LATENT PRINT EXAMINER Ot Z79.899 OTHER FCI (CURRENT) DRUG THERAPY 06/03/2017 EUGENIA YI LATENT PRINT EXAMINER Ot Z85.3 PERSONAL HISTORY OF MALIGNANT NEOPLASM O 06/03/2017 EUGENIA YI LATENT PRINT EXAMINER Ot Z92.3 PERSONAL HISTORY OF IRRADIATION 06/03/2017 SHERRELL HOFFMAN, RIKA M Ot L98.9 DISORDER OF THE SKIN AND SUBCUTANEOUS TI 06/03/2017 SHERRELL HOFFMAN, RIKA M Ot Z01.818 ENCOUNTER FOR OTHER PREPROCEDURAL EXAMIN 06/03/2017 EUGENIA YI LATENT PRINT EXAMINER Ot 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 06/03/2017 EUGENIA YI LATENT PRINT EXAMINER Ot 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 06/03/2017 EUGENIA YI LATENT PRINT EXAMINER Ot C77.3 SEC AND UNSP MALIG NEOPLASM OF [place]ILL[place] AN 06/03/2017 EUGENIA YI LATENT PRINT EXAMINER Ot Z79.899 OTHER [facility]CI (CURRENT) DRUG THERAPY 06/03/2017 EUGENIA YI LATENT PRINT EXAMINER Ot Z85.3 PERSONAL HISTORY OF MALIGNANT NEOPLASM O 06/03/2017 EUGENIA YI LATENT PRINT EXAMINER Ot Z92.21 PERSONAL HISTORY OF ANTINEOPLASTIC CHEMO 06/03/2017 EUGENIA YI LATENT PRINT EXAMINER Ot Z92.3 PERSONAL HISTORY OF IRRADIATION 06/03/2017 EUGENIA YI LATENT PRINT EXAMINER Ot 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 06/03/2017 EUGENIA YI LATENT PRINT EXAMINER Ot C77.3 SEC AND UNSP MALIG NEOPLASM OF [place] AN 06/03/2017 EUGENIA YI LATENT PRINT EXAMINER Ot 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 06/03/2017 EUGENIA YI LATENT PRINT EXAMINER Ot Z85.3 PERSONAL HISTORY OF MALIGNANT NEOPLASM O 06/03/2017 EUGENIA YI LATENT PRINT EXAMINER Ot Z92.21 PERSONAL HISTORY OF ANTINEOPLASTIC CHEMO 06/03/2017 EUGENIA YI LATENT PRINT EXAMINER Ot Z92.3 PERSONAL HISTORY OF IRRADIATION 06/03/2017 JUANITO YITOD Veras LATENT PRINT EXAMINER Ot 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 06/03/2017 JUANITO YITOD Rito LATENT PRINT EXAMINER Ot 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 06/03/2017 JUANITO YITOD Veras LATENT PRINT EXAMINER Ot C77.3 SEC AND UNSP MALIG NEOPLASM OF [place] AN 06/03/2017 EUGENIA YI LATENT PRINT EXAMINER Ot Z79.899 OTHER [facility]CI (CURRENT) DRUG THERAPY 06/03/2017 JUANITO YITOD Rito LATENT PRINT EXAMINER Ot Z85.3 PERSONAL HISTORY OF MALIGNANT NEOPLASM O 06/03/2017 EUGENIA YI LATENT PRINT EXAMINER Ot Z92.21 PERSONAL HISTORY OF ANTINEOPLASTIC CHEMO 06/03/2017 EUGENIA YI LATENT PRINT EXAMINER Ot Z92.3 PERSONAL HISTORY OF IRRADIATION 06/03/2017 EUGENIA YI LATENT PRINT EXAMINER Ot 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 06/03/2017 EUGENIA YI LATENT PRINT EXAMINER Ot C77.3 SEC AND UNSP MALIG NEOPLASM OF [place]ILL[place] AN 06/03/2017 EUGENIA YI LATENT PRINT EXAMINER Ot 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 06/03/2017 EUGENIA YI LATENT PRINT EXAMINER Ot Z85.3 PERSONAL HISTORY OF MALIGNANT NEOPLASM O 06/03/2017 EUGENIA YI LATENT PRINT EXAMINER Ot Z92.21 PERSONAL HISTORY OF ANTINEOPLASTIC CHEMO 06/03/2017 EUGENIA YI LATENT PRINT EXAMINER Ot Z92.3 PERSONAL HISTORY OF IRRADIATION 06/03/2017 EUGENIA YI LATENT PRINT EXAMINER Ot 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 06/03/2017 EUGENIA YI LATENT PRINT EXAMINER Ot C77.3 SEC AND UNSP MALIG NEOPLASM OF [place] AN 06/03/2017 EUGENIA YI LATENT PRINT EXAMINER Ot Z79.899 OTHER [facility] (CURRENT) DRUG THERAPY 06/03/2017 EUGENIA YI S LATENT PRINT EXAMINER Ot Z85.3 PERSONAL HISTORY OF MALIGNANT NEOPLASM O 06/03/2017 EUGENIA YI LATENT PRINT EXAMINER Ot Z92.21 PERSONAL HISTORY OF ANTINEOPLASTIC CHEMO 06/03/2017 EUGENIA YI LATENT PRINT EXAMINER Ot Z92.3 PERSONAL HISTORY OF IRRADIATION 06/03/2017 EUGENIA YI LATENT PRINT EXAMINER Ot 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 06/03/2017 EUGENIA YI LATENT PRINT EXAMINER Ot C77.3 SEC AND UNSP MALIG NEOPLASM OF [place] AN 06/03/2017 EUGENIA YI LATENT PRINT EXAMINER Ot Z79.899 OTHER [facility] (CURRENT) DRUG THERAPY 06/03/2017 EUGENIA YI LATENT PRINT EXAMINER Ot Z85.3 PERSONAL HISTORY OF MALIGNANT NEOPLASM O 06/03/2017 EUGENIA YI LATENT PRINT EXAMINER Ot Z92.21 PERSONAL HISTORY OF ANTINEOPLASTIC CHEMO 06/03/2017 YIEUGENIA Veras LATENT PRINT EXAMINER Ot Z92.3 PERSONAL HISTORY OF IRRADIATION 06/03/2017 EUGENIA YI LATENT PRINT EXAMINER Ot M79.89 OTHER SPECIFIED SOFT TISSUE DISORDERS 06/03/2017 EUGENIA YI LATENT PRINT EXAMINER Ot 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 06/03/2017 EUGENIA YI LATENT PRINT EXAMINER Ot C77.3 SEC AND UNSP MALIG NEOPLASM OF [place]ILL[place] AN 06/03/2017 EUGENIA YI LATENT PRINT EXAMINER Ot Z79.899 OTHER [facility] (CURRENT) DRUG THERAPY 06/03/2017 EUGENIA YI LATENT PRINT EXAMINER Ot Z85.3 PERSONAL HISTORY OF MALIGNANT NEOPLASM O 06/03/2017 EUGENIA YI LATENT PRINT EXAMINER Ot Z92.21 PERSONAL HISTORY OF ANTINEOPLASTIC CHEMO 06/03/2017 YI EUGENIA Veras LATENT PRINT EXAMINER Ot Z92.3 PERSONAL HISTORY OF IRRADIATION 06/03/2017 KARLA TRAVIS MD Ot 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, UNSPECIFIED 06/03/2017 KARLA TRAVIS MD Ot E78.4 OTHER HYPERLIPIDEMIA 06/03/2017 KARLA TRAVIS MD Ot I10 ESSENTIAL (PRIMARY) HYPERTENSION 06/03/2017 KARLA TRAVIS MD Ot Z79.8 99 OTHER [facility] (CURRENT) DRUG THERAPY 06/03/2017 VERNON HOFFMAN FACKam, ALI FACP CCDS Ot 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 06/03/2017 VERNON HOFFMAN FACC, ALI FACP CCDS Ot E78.4 OTHER HYPERLIPIDEMIA 06/03/2017 VERNON HOFFMAN FACC, ALI FACP CCDS Ot I25.10 ATHSCL HEART DISEASE OF [place] CORONARY 06/03/2017 VERNON HOFFMAN [facility], ALI FACP CCDS Ot I65.23 OCCLUSION AND STENOSIS OF BILATERAL [place] 06/03/2017 VERNON HOFFMAN [facility] Ot N18.3 CHRONIC KIDNEY DISEASE, STAGE 3 (MODERAT 06/03/2017 EUGENIA YI LATENT PRINT EXAMINER Ot 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 06/03/2017 EUGENIA YI LATENT PRINT EXAMINER Ot C77.3 SEC AND UNSP MALIG NEOPLASM OF [place] AN 06/03/2017 EUGENIA YI LATENT PRINT EXAMINER Ot 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9 DISORDER OF MUSCLE, UNSPECIFIED 06/03/2017 FRANCISCO ROLON Ot R94.8 ABNORMAL RESULTS OF FUNCTION STUDIES OF 06/03/2017 ANGY HOFFMAN, KARLA Horowitz Ot R53.8 3 OTHER FATIGUE 06/03/2017 EUGENIA YI LATENT PRINT EXAMINER Ot E80.6 OTHER DISORDERS OF BILIRUBIN METABOLISM 06/03/2017 EUGENIA YI LATENT PRINT EXAMINER Ot 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 06/03/2017 EUGENIA YI LATENT PRINT EXAMINER Ot E80.6 OTHER DISORDERS OF BILIRUBIN METABOLISM 06/03/2017 FRANCISCO ROLON Ot 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 06/03/2017 EUGENIA YI LATENT PRINT EXAMINER Ot N 63 UNSPECIFIED LUMP IN BREAST 06/03/2017 EUGENIA YI LATENT PRINT EXAMINER Ot Z85.3 PERSONAL HISTORY OF MALIGNANT NEOPLASM O 06/03/2017 EUGENIA YI LATENT PRINT EXAMINER Ot 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 06/03/2017 EUGENIA YI LATENT PRINT EXAMINER Ot R26.9 UNSPECIFIED ABNORMALITIES OF GAIT AND MO 06/03/2017 EUGENIA YI LATENT PRINT EXAMINER Ot R 42 DIZZINESS AND GIDDINESS 06/03/2017 EUGENIA YI LATENT PRINT EXAMINER Ot R 51 HEADACHE 06/03/2017 KARLA TRAVIS MD Ot C43.5 9 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 06/03/2017 KARLA TRAVIS MD Ot R42 DIZZINESS AND GIDDINESS 06/03/2017 KARLA TRAVIS MD Ot Z85.3 PERSONAL HISTORY OF MALIGNANT NEOPLASM O 06/03/2017 KARLA TRAVIS MD Ot E03.9 HYPOTHYROIDISM, UNSPECIFIED 06/03/2017 EUGENIA YI LATENT PRINT EXAMINER Ot 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 06/03/2017 KARLA TRAVIS MD Ot E78.5 HYPERLIPIDEMIA, UNSPECIFIED 06/03/2017 GORDON WEATHERS MD Ot 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 06/03/2017 GORDON WEATHERS MD Ot C77.3 SEC AND UNSP MALIG NEOPLASM OF [place] 06/03/2017 GORDON WEATHERS MD Ot C79.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 06/03/2017 GORDON WEATHERS MD Ot E03.9 HYPOTHYROIDISM, UNSPECIFIED 06/03/2017 GORDON WEATHERS MD Ot E78.5 HYPERLIPIDEMIA, UNSPECIFIED 06/03/2017 GORDON WEATHERS MD Ot I12.9 HYPERTENSIVE CHRONIC KIDNEY DISEASE W ST 06/03/2017 GORDON WEATHERS MD Ot I25.10 ATHSCL HEART DISEASE OF [place] CORONARY 06/03/2017 GORDON WEATHERS MD Ot N18.3 CHRONIC KIDNEY DISEASE, STAGE 3 (MODERAT 06/03/2017 GORDON WEATHERS MD Ot R42 DIZZINESS AND GIDDINESS 06/03/2017 GORDON WEATHERS MD Ot Z79.899 OTHER [facility] (CURRENT) DRUG THERAPY 06/03/2017 GORDON WEATHERS MD Ot Z85.3 PERSONAL HISTORY OF MALIGNANT NEOPLASM O 06/03/2017 GORDON WEATHERS MD Ot Z92.21 PERSONAL HISTORY OF ANTINEOPLASTIC CHEMO 06/03/2017 GORDON WEATHERS MD Ot Z92.3 PERSONAL HISTORY OF IRRADIATION 06/03/2017 VERNON HOFFMAN FACC, ALI FACP CCDS Ot E78.4 OTHER HYPERLIPIDEMIA 06/03/2017 VERNON HOFFMAN FACC, ALI FACP CCDS Ot I10 ESSENTIAL (PRIMARY) HYPERTENSION 06/03/2017 VERNON HOFFMAN FACC, ALI FACP CCDS Ot I25.10 ATHSCL HEART DISEASE OF [place] CORONARY 06/03/2017 VERNON HOFFMAN FACC, ALI FACP CCDS Ot I65.23 OCCLUSION AND STENOSIS OF BILATERAL [place] 06/03/2017 VERNON HOFFMAN FACC, ALI FACP CCDS Ot R06.09 OTHER FORMS OF DYSPNEA 06/03/2017 VERNON HOFFMAN FACC, ALI FACP CCDS Ot R53.1 WEAKNESS 06/08/2017 VERNON HOFFMAN FACC, ALI FACP CCDS Ot E78.4 OTHER HYPERLIPIDEMIA 06/08/2017 VERNON HOFFMAN FACC, ALI FACP CCDS Ot I10 ESSENTIAL (PRIMARY) HYPERTENSION 06/08/2017 VERNON HOFFMAN FACC, ALI FACP CCDS Ot I25.10 ATHSCL HEART DISEASE OF [place] CORONARY 06/08/2017 VERNON HOFFMAN FAC, ALI FACP CCDS Ot I65.23 OCCLUSION AND STENOSIS OF BILATERAL [place] 06/08/2017 VERNON HOFFMAN FACC, ALI FACP CCDS Ot R06.09 OTHER FORMS OF DYSPNEA 06/08/2017 VERNON HOFFMAN FAC, ALI FACP CCDS Ot R53.1 WEAKNESS 06/10/2017 GORDON WEATHERS MD, Ot 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 06/10/2017 GORDON WEATHERS MD, Ot C77.3 SEC AND UNSP MALIG NEOPLASM OF [place] 06/10/2017 GORDON WEATHERS MD, Ot C79.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 06/10/2017 GORDON WEATHERS MD, Ot E03.9 HYPOTHYROIDISM, UNSPECIFIED 06/10/2017 GORDON WEATHERS MD, Ot E78.5 HYPERLIPIDEMIA, UNSPECIFIED 06/10/2017 GORDON WEATHERS MD Ot I12.9 HYPERTENSIVE CHRONIC KIDNEY DISEASE W ST 06/10/2017 GORDON WEATHERS MD, Ot I25.10 ATHSCL HEART DISEASE OF [place] CORONARY 06/10/2017 GORDON WEATHERS MD, Ot N18.3 CHRONIC KIDNEY DISEASE, STAGE 3 (MODERAT 06/10/2017 GORDON WEATHERS MD Ot R42 DIZZINESS AND GIDDINESS 06/10/2017 GORDON WEATHERS MD, Ot 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 06/10/2017 GORDON WEATHERS MD, Ot Z85.3 PERSONAL HISTORY OF MALIGNANT NEOPLASM O 06/10/2017 GORDON WEATHERS MD, Ot Z92.21 PERSONAL HISTORY OF ANTINEOPLASTIC CHEMO 06/10/2017 GORDON WEATHERS MD, Ot Z92.3 PERSONAL HISTORY OF IRRADIATION 06/10/2017 VERNON HOFFMAN FACC, ALI FACP CCDS Ot E78.4 OTHER HYPERLIPIDEMIA 06/10/2017 VERNON HOFFMAN FACC, ALI FACP CCDS Ot I10 ESSENTIAL (PRIMARY) HYPERTENSION 06/10/2017 VERNON HOFFMAN FACC, ALI FACP CCDS Ot I25.10 ATHSCL HEART DISEASE OF [place] CORONARY 06/10/2017 VERNON HOFFMAN FACC, ALI FACP CCDS Ot I65.23 OCCLUSION AND STENOSIS OF [place]AL [place] 06/10/2017 VERNON HOFFMAN FACC, ALI FACP CCDS Ot R06.09 OTHER FORMS OF DYSPNEA 06/10/2017 VERNON HOFFMAN FACC, ALI FACP CCDS Ot R53.1 WEAKNESS 06/30/2017 VERNON FARNSWORTHC, ALI FACP CCDS Ot E78.4 OTHER HYPERLIPIDEMIA 06/30/2017 VERNON HOFFMAN FACC, ALI FACP CCDS Ot I10 ESSENTIAL (PRIMARY) HYPERTENSION 06/30/2017 VERNON OHFFMAN FACC, ALI FACP CCDS Ot I25.10 ATHSCL HEART DISEASE OF [place] CORONARY 06/30/2017 VERNON HOFFMAN FACC, ALI FACP CCDS Ot I65.23 OCCLUSION AND STENOSIS OF [place]AL [place] 06/30/2017 VERNON HOFFMAN FACC, ALI FACP CCDS Ot R06.09 OTHER FORMS OF DYSPNEA 06/30/2017 VERNON HOFFMAN FACC, ALI FACP CCDS Ot R53.1 WEAKNESS 06/30/2017 GORDON WEATHERS MD, Ot 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 06/30/2017 GORDON WEATHERS MD, Ot C77.3 SEC AND UNSP MALIG NEOPLASM OF [place] 06/30/2017 GORDON WEATHERS MD, Ot C79.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 06/30/2017 GORDON WEATHERS MD, Ot E03.9 HYPOTHYROIDISM, UNSPECIFIED 06/30/2017 GORDON WEATHERS MD, Ot E78.5 HYPERLIPIDEMIA, UNSPECIFIED 06/30/2017 GORDON WEATHERS MD Ot I12.9 HYPERTENSIVE CHRONIC KIDNEY DISEASE W ST 06/30/2017 GORDON WEATHERS MD Ot I25.10 ATHSCL HEART DISEASE OF [place] CORONARY 06/30/2017 GORDON WEATHERS MD Ot N18.3 CHRONIC KIDNEY DISEASE, STAGE 3 (MODERAT 06/30/2017 GORDON WEATHERS MD Ot R42 DIZZINESS AND GIDDINESS 06/30/2017 GORDON WEATHERS MD Ot 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 06/30/2017 GORDON WEATHERS MD Ot Z85.3 PERSONAL HISTORY OF MALIGNANT NEOPLASM O 06/30/2017 GORDON WEATHERS MD Ot Z92.21 PERSONAL HISTORY OF ANTINEOPLASTIC CHEMO 06/30/2017 GORDON WEATHERS MD, Ot Z92.3 PERSONAL HISTORY OF IRRADIATION 06/30/2017 VERNON HOFFMAN FACC, ALI FACP CCDS Ot E78.4 OTHER HYPERLIPIDEMIA 06/30/2017 VERNON HOFFMAN FACC, ALI FACP CCDS Ot I10 ESSENTIAL (PRIMARY) HYPERTENSION 06/30/2017 VERNON HOFFMAN FACC, ALI FACP CCDS Ot I25.10 ATHSCL HEART DISEASE OF [place] CORONARY 06/30/2017 VERNON HOFFMAN FACC, ALI FACP CCDS Ot I65.23 OCCLUSION AND STENOSIS OF [place]AL [place] 06/30/2017 VERNON HOFFMAN FACC, ALI FACP CCDS Ot R06.09 OTHER FORMS OF DYSPNEA 06/30/2017 VERNON HOFFMAN FACC, ALI FACP CCDS Ot R53.1 WEAKNESS 07/01/2017 GORDON WEATHERS MD Ot 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 07/01/2017 GORDON WEATHERS MD Ot C77.3 SEC AND UNSP MALIG NEOPLASM OF [place] 07/01/2017 GORDON WEATHERS MD Ot C79.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 07/01/2017 GORDON WEATHERS MD Ot E03.9 HYPOTHYROIDISM, UNSPECIFIED 07/01/2017 GORDON WEATHERS MD Ot E78.5 HYPERLIPIDEMIA, UNSPECIFIED 07/01/2017 GORDON WEATHERS MD Ot I12.9 HYPERTENSIVE CHRONIC KIDNEY DISEASE W ST 07/01/2017 GORDON WEATHERS MD Ot I25.10 ATHSCL HEART DISEASE OF [place] CORONARY 07/01/2017 GORDON WEATHERS MD Ot N18.3 CHRONIC KIDNEY DISEASE, STAGE 3 (MODERAT 07/01/2017 GORDON WEATHERS MD Ot R42 DIZZINESS AND GIDDINESS 07/01/2017 GORDON WEATHERS MD, Ot Z79.899 OTHER [facility] (CURRENT) DRUG THERAPY 07/01/2017 GORDON WEATHERS MD Ot Z85.3 PERSONAL HISTORY OF MALIGNANT NEOPLASM O 07/01/2017 GORDON WEATHERS MD Ot Z92.21 PERSONAL HISTORY OF ANTINEOPLASTIC CHEMO 07/01/2017 GORDON WEATHERS MD, Ot Z92.3 PERSONAL HISTORY OF IRRADIATION 07/07/2017 ОЛЬГА FRANCISCO Rascon Ot 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 07/07/2017 ОЛЬГАFRANCISCO Ot C77.3 SEC AND UNSP MALIG NEOPLASM OF [place] AN 07/07/2017 ОЛЬГАFRANCISCO N Ot C79.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 07/07/2017 ОЛЬГА FRANCISCO Rascon Ot E03.9 HYPOTHYROIDISM, UNSPECIFIED 07/07/2017 ОЛЬГАFRANCISCO Ot E78.5 HYPERLIPIDEMIA, UNSPECIFIED 07/07/2017 ОЛЬГАFRANCISCO N Ot I12.9 HYPERTENSIVE CHRONIC KIDNEY DISEASE W ST 07/07/2017 ОЛЬГАFRANCISCO N Ot I25.10 ATHSCL HEART DISEASE OF [place] CORONARY 07/07/2017 ОЛЬГА FRANCISCO N Ot N18.3 CHRONIC KIDNEY DISEASE, STAGE 3 (MODERAT 07/07/2017 ОЛЬГАFRANCISCO N Ot R42 DIZZINESS AND GIDDINESS 07/07/2017 ОЛЬГАFRANCISCO N Ot Z79.899 OTHER [facility] (CURRENT) DRUG THERAPY 07/07/2017 ОЛЬГАFRANCISCO N Ot Z85.3 PERSONAL HISTORY OF MALIGNANT NEOPLASM O 07/07/2017 ОЛЬГА FRANCISCO N Ot Z92.21 PERSONAL HISTORY OF ANTINEOPLASTIC CHEMO 07/07/2017 ОЛЬГАFRANCISCO N Ot Z92.3 PERSONAL HISTORY OF IRRADIATION 07/12/2017 EUGENIA YI Ot 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, UNSPECIFIED 07/22/2017 VERNON HOFFMAN FACC, SHAQ FACP CCDS Ot E78.4 OTHER HYPERLIPIDEMIA 07/22/2017 VERNON HOFFMAN FACC, ALI FACP CCDS Ot I10 ESSENTIAL (PRIMARY) HYPERTENSION 07/22/2017 VERNON HOFFMAN FACC, ALI FACP CCDS Ot I25.10 ATHSCL HEART DISEASE OF [place] CORONARY 07/22/2017 VERNON HOFFMAN FACC, ALI FACP CCDS Ot I65.23 OCCLUSION AND STENOSIS OF BILATERAL [place] 07/22/2017 VERNON HOFFMAN [facility], [facility] CCDS Ot R06.09 OTHER FORMS OF DYSPNEA 07/22/2017 VERNON HOFFMAN [facility], [facility] CCDS Ot R53.1 WEAKNESS 07/28/2017 EUGENIA YI LATENT PRINT EXAMINER Ot 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 07/28/2017 EUGENIA YI LATENT PRINT EXAMINER Ot G93.89 OTHER SPECIFIED DISORDERS OF BRAIN 07/28/2017 EUGENIA YI LATENT PRINT EXAMINER Ot R 42 DIZZINESS AND GIDDINESS 08/04/2017 EUGENIA YI LATENT PRINT EXAMINER Ot 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, UNSPECIFIED 08/16/2017 FRANCISCO ROLON N Ot 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 08/16/2017 FRANCISCO ROLON Ot C77.3 SEC AND UNSP MALIG NEOPLASM OF [place] 08/16/2017 FRNACISCO ROLON N Ot C79.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 08/16/2017 FRANCISCO ROLON Ot E03.9 HYPOTHYROIDISM, UNSPECIFIED 08/16/2017 FRANCISCO ROLON N Ot E78.5 HYPERLIPIDEMIA, UNSPECIFIED 08/16/2017 ОЛЬГАFRANCISCO N Ot I12.9 HYPERTENSIVE CHRONIC KIDNEY DISEASE W ST 08/16/2017 FRANCISCO ROLON N Ot I25.10 ATHSCL HEART DISEASE OF [place] CORONARY 08/16/2017 FRANCISCO ROLON N Ot N18.3 CHRONIC KIDNEY DISEASE, STAGE 3 (MODERAT 08/16/2017 FRANCISCO ROLON N Ot R42 DIZZINESS AND GIDDINESS 08/16/2017 FRANCISCO ROLON N Ot Z79.899 OTHER [facility] (CURRENT) DRUG THERAPY 08/16/2017 FRANCISCO ROLON N Ot Z85.3 PERSONAL HISTORY OF MALIGNANT NEOPLASM O 08/16/2017 FRANCISCO ROLON N Ot Z92.21 PERSONAL HISTORY OF ANTINEOPLASTIC CHEMO 08/16/2017 FRANCISCO ROLON N Ot Z92.3 PERSONAL HISTORY OF IRRADIATION 08/17/2017 EUGENIA YI LATENT PRINT EXAMINER Ot 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 08/17/2017 EUGENIA YI LATENT PRINT EXAMINER Ot G93.89 OTHER SPECIFIED DISORDERS OF BRAIN 08/17/2017 EUGENIA YI LATENT PRINT EXAMINER Ot R 42 DIZZINESS AND GIDDINESS 08/31/2017 FRANCISCO ROLON N Ot 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 08/31/2017 FRANCISCO ROLON N Ot C77.3 SEC AND UNSP MALIG NEOPLASM OF [place] 08/31/2017 FRANCISCO ROLON N Ot C79.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 08/31/2017 FRANCISCO ROLON N Ot E03.9 HYPOTHYROIDISM, UNSPECIFIED 08/31/2017 ОЛЬГА, DIANAPAPA N Ot E78.5 HYPERLIPIDEMIA, UNSPECIFIED 08/31/2017 ОЛЬГА BOBPAPA N Ot I12.9 HYPERTENSIVE CHRONIC KIDNEY DISEASE W ST 08/31/2017 DIANA ROLONAN N Ot I25.10 ATHSCL HEART DISEASE OF [place] CORONARY 08/31/2017 ОЛЬГА DIANAPAPA N Ot N18.3 CHRONIC KIDNEY DISEASE, STAGE 3 (MODERAT 08/31/2017 ОЛЬГА DIANAPAPA N Ot R42 DIZZINESS AND GIDDINESS 08/31/2017 ОЛЬГА DIANAPAPA N Ot 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 08/31/2017 FRANCISCO ORLON N Ot Z85.3 PERSONAL HISTORY OF MALIGNANT NEOPLASM O 08/31/2017 FRANCISCO ROLON N Ot Z92.21 PERSONAL HISTORY OF ANTINEOPLASTIC CHEMO 08/31/2017 FRANCISCO ROLON N Ot Z92.3 PERSONAL HISTORY OF IRRADIATION 09/26/2017 EUGENIA YI LATENT PRINT EXAMINER Ot R91.1 SOLITARY PULMONARY NODULE 09/26/2017 EUGENIA YI LATENT PRINT EXAMINER Ot Z85.820 PERSONAL HISTORY OF MALIGNANT MELANOMA O 10/03/2017 FRANCISCO ROLON N Ot 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 10/03/2017 FRANCISCO ROLON N Ot C77.3 SEC AND UNSP MALIG NEOPLASM OF [place] 10/03/2017 FRANCISCO ROLON N Ot C79.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 10/03/2017 FRANCISCO ROLON N Ot E03.9 HYPOTHYROIDISM, UNSPECIFIED 10/03/2017 ОЛЬГА DIANAPAPA N Ot E78.5 HYPERLIPIDEMIA, UNSPECIFIED 10/03/2017 ОЛЬГАFRANCISCO MAE N Ot I12.9 HYPERTENSIVE CHRONIC KIDNEY DISEASE W ST 10/03/2017 ОЛЬГА DIANAPAPA N Ot I25.10 ATHSCL HEART DISEASE OF [place] CORONARY 10/03/2017 ОЛЬГАFRANCISCO N Ot N18.3 CHRONIC KIDNEY DISEASE, STAGE 3 (MODERAT 10/03/2017 ОЛЬГАDIANAAN N Ot R42 DIZZINESS AND GIDDINESS 10/03/2017 ОЛЬГА DIANAAN N Ot Z79.899 OTHER [facility] (CURRENT) DRUG THERAPY 10/03/2017 ОЛЬГА, DIANAAN N Ot Z85.3 PERSONAL HISTORY OF MALIGNANT NEOPLASM O 10/03/2017 ОЛЬГА DIANAPAPA N Ot Z92.21 PERSONAL HISTORY OF ANTINEOPLASTIC CHEMO 10/03/2017 ОЛЬГА DIANAAN N Ot Z92.3 PERSONAL HISTORY OF IRRADIATION 10/04/2017 ОЛЬГА DIANAAN N Ot 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 10/04/2017 ОЛЬГА, BOBAN N Ot C77.3 SEC AND UNSP MALIG NEOPLASM OF [place] 10/04/2017 ОЛЬГА DIANAAN N Ot C79.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 10/04/2017 ОЛЬАГ DIANAPAPA N Ot E03.9 HYPOTHYROIDISM, UNSPECIFIED 10/04/2017 ОЛЬГА DIANAPAPA N Ot E78.5 HYPERLIPIDEMIA, UNSPECIFIED 10/04/2017 ОЛЬГА DIANAAN N Ot I12.9 HYPERTENSIVE CHRONIC KIDNEY DISEASE W ST 10/04/2017 ОЛЬГА DIANAAN N Ot I25.10 ATHSCL HEART DISEASE OF [place] CORONARY 10/04/2017 ОЛЬГАFRANCISCO MAE N Ot N18.3 CHRONIC KIDNEY DISEASE, STAGE 3 (MODERAT 10/04/2017 ОЛЬГА DIANAPAPA N Ot R42 DIZZINESS AND GIDDINESS 10/04/2017 ОЛЬГА, DIANAPAPA N Ot 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 10/04/2017 ОЛЬГА DIANAAN N Ot Z85.3 PERSONAL HISTORY OF MALIGNANT NEOPLASM O 10/04/2017 ОЛЬГАDIANAAN N Ot Z92.21 PERSONAL HISTORY OF ANTINEOPLASTIC CHEMO 10/04/2017 ОЛЬГА DIANAAN N Ot Z92.3 PERSONAL HISTORY OF IRRADIATION 10/13/2017 ОЛЬГА DIANAAN N Ot 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 10/13/2017 ОЛЬГА DIANAAN N Ot C77.3 SEC AND UNSP MALIG NEOPLASM OF [place] 10/13/2017 ОЛЬГА, BOBAN N Ot C79.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 10/13/2017 FRANCISCO ROLON Ot E03.9 HYPOTHYROIDISM, UNSPECIFIED 10/13/2017 FRANCISCO ROLON Tarah Ot E78.5 HYPERLIPIDEMIA, UNSPECIFIED 10/13/2017 FRANCISCO ROLON Ot I12.9 HYPERTENSIVE CHRONIC KIDNEY DISEASE W ST 10/13/2017 FRANCISCO ROLON Ot I25.10 ATHSCL HEART DISEASE OF [place] CORONARY 10/13/2017 FRANCISCO ROLON Ot N18.3 CHRONIC KIDNEY DISEASE, STAGE 3 (MODERAT 10/13/2017 FRANCISCO ROLON Ot R42 DIZZINESS AND GIDDINESS 10/13/2017 FRANCISCO ROLON Ot 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 10/13/2017 FRANCISCO ROLON Tarah Ot Z85.3 PERSONAL HISTORY OF MALIGNANT NEOPLASM O 10/13/2017 FRANCISCO ROLON Tarah Ot Z92.21 PERSONAL HISTORY OF ANTINEOPLASTIC CHEMO 10/13/2017 FRANCISCO ROLON Tarah Ot Z92.3 PERSONAL HISTORY OF IRRADIATION 10/14/2017 EUGENIA YI LATENT PRINT EXAMINER Ot R91.1 SOLITARY PULMONARY NODULE 10/14/2017 EUGENIA YI LATENT PRINT EXAMINER Ot Z85.820 PERSONAL HISTORY OF MALIGNANT MELANOMA O 10/14/2017 GAYLE DO WILMAR Ot 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, UNSPECIFIED 10/14/2017 GAYLE MATOS WILMAR Ot C79.9 SECONDARY MALIGNANT NEOPLASM OF UNSPECIF 10/14/2017 GAYLE MATOS WILMAR Ot D64.9 ANEMIA, UNSPECIFIED 10/14/2017 GAYLE MATOS WILMAR Ot E03.9 HYPOTHYROIDISM, UNSPECIFIED 10/14/2017 GAYLE MATOS WILMAR Ot E78.5 HYPERLIPIDEMIA, UNSPECIFIED 10/14/2017 GAYLE MATOS WILMAR Ot E87.1 HYPO-OSMOLALITY AND HYPONATREMIA 10/14/2017 GAYLE MATOS WILMAR Ot H57.9 UNSPECIFIED DISORDER OF EYE AND ADNEXA 10/14/2017 GAYLE MATOS WILMAR Ot I10 ESSENTIAL (PRIMARY) HYPERTENSION 10/14/2017 GAYLE MATOS WILMAR Ot I25.10 ATHSCL HEART DISEASE OF [place] CORONARY 10/14/2017 GAYLE MATOS WILMAR Ot I65.23 OCCLUSION AND STENOSIS OF BILATERAL [place] 10/14/2017 GAYLE MATOS WILMAR Ot K21.9 GASTRO-ESOPHAGEAL REFLUX DISEASE WITHOUT 10/14/2017 WILMAR ARAUJO DO Ot K59.09 OTHER CONSTIPATION 10/14/2017 WILMAR ARAUJO DO Ot M79.7 FIBROMYALGIA 10/14/2017 WILMAR ARAUJO DO Ot R07.89 OTHER CHEST PAIN 10/14/2017 ERLIN ARAUJO DOI Ot R42 DIZZINESS AND GIDDINESS 10/14/2017 WILMAR ARAUJO DO Ot R60.0 LOCALIZED EDEMA 10/14/2017 WILMAR ARAUJO DO Ot R63.4 ABNORMAL WEIGHT LOSS 10/14/2017 WILMAR ARAUJO DO Ot Z79.89 9 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 10/14/2017 WILMAR ARAUJO DO Ot Z88.5 ALLERGY STATUS TO NARCOTIC AGENT STATUS 10/14/2017 WILMAR ARAUJO DO Ot Z88.7 ALLERGY STATUS TO SERUM AND VACCINE STAT 10/14/2017 WILMAR ARAUJO DO Ot Z88.8 ALLERGY STATUS TO OTH DRUG/MEDS/BIOL SUB 10/14/2017 WILMAR ARAUJO DO Ot Z95.1 PRESENCE OF AORTOCORONARY BYPASS GRAFT 10/18/2017 ERLIN ARAUJO DOI Ot 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, UNSPECIFIED 10/18/2017 ERLIN ARAUJO DOI Ot C79.9 SECONDARY MALIGNANT NEOPLASM OF UNSPECIF 10/18/2017 WILMAR ARAUJO DO Ot D64.9 ANEMIA, UNSPECIFIED 10/18/2017 ERLIN ARAUJO DOI Ot E03.9 HYPOTHYROIDISM, UNSPECIFIED 10/18/2017 ERLIN ARAUJO DOI Ot E78.5 HYPERLIPIDEMIA, UNSPECIFIED 10/18/2017 ERLIN ARAUJO DOI Ot E87.1 HYPO-OSMOLALITY AND HYPONATREMIA 10/18/2017 ERLIN ARAUJO DOI Ot H57.9 UNSPECIFIED DISORDER OF EYE AND ADNEXA 10/18/2017 ERLIN ARAUJO DOI Ot I10 ESSENTIAL (PRIMARY) HYPERTENSION 10/18/2017 WILMAR ARAUJO DO Ot I25.10 ATHSCL HEART DISEASE OF [place] CORONARY 10/18/2017 ERLIN ARAUJO DOI Ot I65.23 OCCLUSION AND STENOSIS OF BILATERAL [place] 10/18/2017 ERLIN RAAUJO DOI Ot K21.9 GASTRO-ESOPHAGEAL REFLUX DISEASE WITHOUT 10/18/2017 ERLIN ARAUJO DOI Ot K59.09 OTHER CONSTIPATION 10/18/2017 WILMAR ARAUJO DO Ot M79.7 FIBROMYALGIA 10/18/2017 ERLIN ARAUJO DOI Ot R07.89 OTHER CHEST PAIN 10/18/2017 WILMAR ARAUJO DO Ot R42 DIZZINESS AND GIDDINESS 10/18/2017 WILMAR ARAUJO DO Ot R60.0 LOCALIZED EDEMA 10/18/2017 ERLIN ARAUJO DOI Ot R63.4 ABNORMAL WEIGHT LOSS 10/18/2017 WILMAR ARAUJO DO Ot Z79.89 9 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 10/18/2017 WILMAR ARAUJO DO Ot Z88.5 ALLERGY STATUS TO NARCOTIC AGENT STATUS 10/18/2017 WILMAR ARAUJO DO Ot Z88.7 ALLERGY STATUS TO SERUM AND VACCINE STAT 10/18/2017 WILMAR ARAUJO DO Ot Z88.8 ALLERGY STATUS TO OTH DRUG/MEDS/BIOL SUB 10/18/2017 WILMAR ARAUJO DO Ot Z95.1 PRESENCE OF AORTOCORONARY BYPASS GRAFT 10/19/2017 WILMAR ARAUJO DO Ot 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, UNSPECIFIED 10/19/2017 ERLIN ARAUJO DOI Ot C79.9 SECONDARY MALIGNANT NEOPLASM OF UNSPECIF 10/19/2017 ERLIN ARAUJO DOI Ot D64.9 ANEMIA, UNSPECIFIED 10/19/2017 WILAMR ARAUJO DO Ot E03.9 HYPOTHYROIDISM, UNSPECIFIED 10/19/2017 ERLIN ARAUJO DOI Ot E78.5 HYPERLIPIDEMIA, UNSPECIFIED 10/19/2017 ERLIN ARAUJO DOI Ot E87.1 HYPO-OSMOLALITY AND HYPONATREMIA 10/19/2017 WILMAR ARAUJO DO Ot H57.9 UNSPECIFIED DISORDER OF EYE AND ADNEXA 10/19/2017 ERLIN ARAUJO DOI Ot I10 ESSENTIAL (PRIMARY) HYPERTENSION 10/19/2017 ERLIN ARAUJO DOI Ot I25.10 ATHSCL HEART DISEASE OF [place] CORONARY 10/19/2017 WILMAR ARAUJO DO Ot I65.23 OCCLUSION AND STENOSIS OF BILATERAL [place] 10/19/2017 ERLIN ARAUJO DOI Ot K21.9 GASTRO-ESOPHAGEAL REFLUX DISEASE WITHOUT 10/19/2017 ERLIN ARAUJO DOI Ot K59.09 OTHER CONSTIPATION 10/19/2017 WILMAR ARAUJO DO Ot M79.7 FIBROMYALGIA 10/19/2017 ERLIN ARAUJO DOI Ot R07.89 OTHER CHEST PAIN 10/19/2017 ERLIN ARAUJO DOI Ot R42 DIZZINESS AND GIDDINESS 10/19/2017 WILMAR ARAUJO DO Ot R60.0 LOCALIZED EDEMA 10/19/2017 ERLIN ARAUJO DOI Ot R63.4 ABNORMAL WEIGHT LOSS 10/19/2017 ERLIN ARAUJO DOI Ot Z79.89 9 OTHER [facility] (CURRENT) DRUG THERAPY 10/19/2017 WILMAR ARAUJO DO Ot Z88.5 ALLERGY STATUS TO NARCOTIC AGENT STATUS 10/19/2017 ERLIN ARAUJO DOI Ot Z88.7 ALLERGY STATUS TO SERUM AND VACCINE STAT 10/19/2017 ERLIN ARAUJO DOI Ot Z88.8 ALLERGY STATUS TO OTH DRUG/MEDS/BIOL SUB 10/19/2017 WILMAR ARAUJO DO Ot Z95.1 PRESENCE OF AORTOCORONARY BYPASS GRAFT 10/20/2017 GAYLE MATOS WILMAR Ot 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, UNSPECIFIED 10/20/2017 ERLIN ARAUJO DOI Ot C79.9 SECONDARY MALIGNANT NEOPLASM OF UNSPECIF 10/20/2017 ERLIN ARAUJO DOI Ot D64.9 ANEMIA, UNSPECIFIED 10/20/2017 GAYLE MATOS WILMAR Ot E03.9 HYPOTHYROIDISM, UNSPECIFIED 10/20/2017 ERLIN ARAUJO DOI Ot E78.5 HYPERLIPIDEMIA, UNSPECIFIED 10/20/2017 GAYLE MATOS WILMAR Ot E87.1 HYPO-OSMOLALITY AND HYPONATREMIA 10/20/2017 GAYLE MATOS WILMAR Ot H57.9 UNSPECIFIED DISORDER OF EYE AND ADNEXA 10/20/2017 GAYLE MATOS WILMAR Ot I10 ESSENTIAL (PRIMARY) HYPERTENSION 10/20/2017 ERLIN ARAUJO DOI Ot I25.10 ATHSCL HEART DISEASE OF [place] CORONARY 10/20/2017 GAYLE MATOS WILMAR Ot I65.23 OCCLUSION AND STENOSIS OF BILATERAL [place] 10/20/2017 ERLIN ARAUJO DOI Ot K21.9 GASTRO-ESOPHAGEAL REFLUX DISEASE WITHOUT 10/20/2017 ERLIN ARAUJO DOI Ot K59.09 OTHER CONSTIPATION 10/20/2017 GAYLE MATOS WILMAR Ot M79.7 FIBROMYALGIA 10/20/2017 GAYLE MATOS WILMAR Ot R07.89 OTHER CHEST PAIN 10/20/2017 ERLIN ARAUJO DOI Ot R42 DIZZINESS AND GIDDINESS 10/20/2017 WILMAR ARAUJO DO Ot R60.0 LOCALIZED EDEMA 10/20/2017 WILMAR ARAUJO DO Ot R63.4 ABNORMAL WEIGHT LOSS 10/20/2017 WILMAR ARAUJO DO Ot Z79.89 9 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 10/20/2017 WILMAR ARAUJO DO Ot Z88.5 ALLERGY STATUS TO NARCOTIC AGENT STATUS 10/20/2017 WILMAR ARAUJO DO Ot Z88.7 ALLERGY STATUS TO SERUM AND VACCINE STAT 10/20/2017 WILMAR ARAUJO DO Ot Z88.8 ALLERGY STATUS TO OTH DRUG/MEDS/BIOL SUB 10/20/2017 WILMAR ARAUJO DO Ot Z95.1 PRESENCE OF AORTOCORONARY BYPASS GRAFT 12/06/2017 FRANCISCO ROLON Ot 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 12/06/2017 FRANCISCO ROLON Ot C77.3 SEC AND UNSP MALIG NEOPLASM OF [place] 12/06/2017 FRANCISCO ROLON Ot C79.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 12/06/2017 FRANCISCO ROLON Ot E03.9 HYPOTHYROIDISM, UNSPECIFIED 12/06/2017 FRANCISCO ROLON Ot E78.5 HYPERLIPIDEMIA, UNSPECIFIED 12/06/2017 FRANCISCO ROLON Ot I12.9 HYPERTENSIVE CHRONIC KIDNEY DISEASE W ST 12/06/2017 FRANCISCO ROLON Ot I25.10 ATHSCL HEART DISEASE OF [place] CORONARY 12/06/2017 FRANCISCO ROLON Ot N18.3 CHRONIC KIDNEY DISEASE, STAGE 3 (MODERAT 12/06/2017 FRANCISCO ROLON Ot R42 DIZZINESS AND GIDDINESS 12/06/2017 FRANCISCO ROLON Ot 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 12/06/2017 FRANCISCO ROLON Ot Z85.3 PERSONAL HISTORY OF MALIGNANT NEOPLASM O 12/06/2017 FRANCISCO ROLON Ot Z92.21 PERSONAL HISTORY OF ANTINEOPLASTIC CHEMO 12/06/2017 FRANCISCO ROLON Ot Z92.3 PERSONAL HISTORY OF IRRADIATION 12/07/2017 KARLA TRAVIS MD Ot E03.9 HYPOTHYROIDISM, UNSPECIFIED 12/07/2017 KARLA TRAVIS MD Ot Z79.8 99 OTHER [facility] (CURRENT) DRUG THERAPY 12/22/2017 EUGENIA YI LATENT PRINT EXAMINER Ot C77.3 SEC AND UNSP MALIG NEOPLASM OF [place] AN 12/22/2017 EUGENIA YI LATENT PRINT EXAMINER Ot Z85.820 PERSONAL HISTORY OF MALIGNANT MELANOMA O 12/30/2017 ОЛЬГАFRANCISCO MAE N Ot 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 12/30/2017 ОЛЬГАFRANCISCO MAE N Ot C77.3 SEC AND UNSP MALIG NEOPLASM OF [place] AN 12/30/2017 ОЛЬГА, BOBAN N Ot C79.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 12/30/2017 ОЛЬГА BOBAN N Ot E03.9 HYPOTHYROIDISM, UNSPECIFIED 12/30/2017 ОЛЬГА BOBAN N Ot E78.5 HYPERLIPIDEMIA, UNSPECIFIED 12/30/2017 ОЛЬГА, BOBAN N Ot I12.9 HYPERTENSIVE CHRONIC KIDNEY DISEASE W ST 12/30/2017 ОЛЬГА BOBAN N Ot I25.10 ATHSCL HEART DISEASE OF [place] CORONARY 12/30/2017 ОЛЬГА, DIANAPAPA N Ot N18.3 CHRONIC KIDNEY DISEASE, STAGE 3 (MODERAT 12/30/2017 ОЛЬГАDIANA MAEAN N Ot R42 DIZZINESS AND GIDDINESS 12/30/2017 ОЛЬГА, BOBAN N Ot 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 12/30/2017 ОЛЬГА BOBAN N Ot Z85.3 PERSONAL HISTORY OF MALIGNANT NEOPLASM O 12/30/2017 FRANCISCO ROLON N Ot Z92.21 PERSONAL HISTORY OF ANTINEOPLASTIC CHEMO 12/30/2017 DIANA ROLONAN N Ot Z92.3 PERSONAL HISTORY OF IRRADIATION 01/11/2018 EUGENIA YI LATENT PRINT EXAMINER Ot C77.3 SEC AND UNSP MALIG NEOPLASM OF [place] AN 01/11/2018 EUGENIA YI LATENT PRINT EXAMINER Ot Z85.820 PERSONAL HISTORY OF MALIGNANT MELANOMA O 01/18/2018 FRANCISCO ROLON N Ot 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 01/18/2018 ОЛЬГАFRANCISCO N Ot C77.3 SEC AND UNSP MALIG NEOPLASM OF [place] AN 01/18/2018 ОЛЬГАDIANA MAEAN N Ot C79.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 01/18/2018 ОЛЬГАFRANCISCO N Ot E03.9 HYPOTHYROIDISM, UNSPECIFIED 01/18/2018 ОЛЬГА BOBAN N Ot E78.5 HYPERLIPIDEMIA, UNSPECIFIED 01/18/2018 ОЛЬГА, BOBAN N Ot I12.9 HYPERTENSIVE CHRONIC KIDNEY DISEASE W ST 01/18/2018 ОЛЬГАDIANAAN N Ot I25.10 ATHSCL HEART DISEASE OF [place] CORONARY 01/18/2018 ОЛЬГА, BOBAN N Ot N18.3 CHRONIC KIDNEY DISEASE, STAGE 3 (MODERAT 01/18/2018 ОЛЬГА, BOBAN N Ot R42 DIZZINESS AND GIDDINESS 01/18/2018 ОЛЬГА, BOBAN N Ot 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 01/18/2018 ОЛЬГА, BOBAN N Ot Z85.3 PERSONAL HISTORY OF MALIGNANT NEOPLASM O 01/18/2018 ОЛЬГА, BOBAN N Ot Z92.21 PERSONAL HISTORY OF ANTINEOPLASTIC CHEMO 01/18/2018 ОЛЬГА, BOBAN N Ot Z92.3 PERSONAL HISTORY OF IRRADIATION 01/19/2018 ОЛЬГА, BOBAN N Ot 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 01/19/2018 ОЛЬГАDIANAAN N Ot C77.3 SEC AND UNSP MALIG NEOPLASM OF [place]ILL[place] AN 01/19/2018 ОЛЬГА, BOBAN N Ot C79.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 01/19/2018 FRANCISCO ROLON N Ot E03.9 HYPOTHYROIDISM, UNSPECIFIED 01/19/2018 ОЛЬГА, BOBPAPA N Ot E78.5 HYPERLIPIDEMIA, UNSPECIFIED 01/19/2018 ОЛЬГА, BOBAN N Ot I12.9 HYPERTENSIVE CHRONIC KIDNEY DISEASE W ST 01/19/2018 ОЛЬГАFRANCISCO MAE N Ot I25.10 ATHSCL HEART DISEASE OF [place] CORONARY 01/19/2018 ОЛЬГА, BOBPAPA N Ot N18.3 CHRONIC KIDNEY DISEASE, STAGE 3 (MODERAT 01/19/2018 ОЛЬГА, BOBAN N Ot R42 DIZZINESS AND GIDDINESS 01/19/2018 ОЛЬГА, BOBAN N Ot 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 01/19/2018 ОЛЬГА, BOBAN N Ot Z85.3 PERSONAL HISTORY OF MALIGNANT NEOPLASM O 01/19/2018 ОЛЬГА, BOBAN N Ot Z92.21 PERSONAL HISTORY OF ANTINEOPLASTIC CHEMO 01/19/2018 ОЛЬГА, BOBAN N Ot Z92.3 PERSONAL HISTORY OF IRRADIATION 01/21/2018 ОЛЬГА, BOBAN N Ot 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 01/21/2018 ОЛЬГА BOBAN N Ot Z85.3 PERSONAL HISTORY OF MALIGNANT NEOPLASM O 01/21/2018 ОЛЬГА BOBAN N Ot Z92.21 PERSONAL HISTORY OF ANTINEOPLASTIC CHEMO 01/21/2018 DIANA ROLONAN N Ot Z92.3 PERSONAL HISTORY OF IRRADIATION 01/24/2018 DIANA ROLONAN N Ot 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 01/24/2018 ОЛЬГА, BOBPAPA N Ot C77.3 SEC AND UNSP MALIG NEOPLASM OF [place] AN 01/24/2018 ОЛЬГА, BOBAN N Ot C79.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 01/24/2018 ОЛЬГА, BOBAN N Ot E03.9 HYPOTHYROIDISM, UNSPECIFIED 01/24/2018 ОЛЬГА, BOBAN N Ot E78.5 HYPERLIPIDEMIA, UNSPECIFIED 01/24/2018 ОЛЬГА, BOBAN N Ot I12.9 HYPERTENSIVE CHRONIC KIDNEY DISEASE W ST 01/24/2018 ОЛЬГА, BOBAN N Ot I25.10 ATHSCL HEART DISEASE OF [place] CORONARY 01/24/2018 ОЛЬГА, BOBAN N Ot N18.3 CHRONIC KIDNEY DISEASE, STAGE 3 (MODERAT 01/24/2018 ОЛЬГА, BOBAN N Ot R42 DIZZINESS AND GIDDINESS 01/24/2018 ОЛЬГА, BOBAN N Ot 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 01/24/2018 FRANCISCO ROLON Tarah Ot Z85.3 PERSONAL HISTORY OF MALIGNANT NEOPLASM O 01/24/2018 FRANCISCO ROLON Tarah Ot Z92.21 PERSONAL HISTORY OF ANTINEOPLASTIC CHEMO 01/24/2018 FRANCISCO ROLON Tarah Ot Z92.3 PERSONAL HISTORY OF IRRADIATION 02/07/2018 EUGENIA YI LATENT PRINT EXAMINER Ot C77.3 SEC AND UNSP MALIG NEOPLASM OF [place] 02/07/2018 EUGENIA YI LATENT PRINT EXAMINER Ot Z85.820 PERSONAL HISTORY OF MALIGNANT MELANOMA O 02/09/2018 Ot 473.9 ENGINEERING SURVEYOR MIRI SINUSITIS NOS 02/09/2018 Ot 780.4 DIZZ INESS AND GIDDINESS 02/09/2018 Ot V10.3 HX O F BREAST MALIGNANCY 02/09/2018 GILBERT HOWARD APRN Ot V76.12 OTH SCREEN MAMMO-MALIGN NEOPLASM OF [place] 02/09/2018 ALEXSANDER LUNA LATENT PRINT EXAMINER Ot 414.00 CORON ATHEROSCLER NOS TYPE VESSEL, NATIV 02/09/2018 ALEXSANDER LUNA LATENT PRINT EXAMINER Ot 786.09 RESPIRATORY ABNORM NEC 02/09/2018 ALEXSANDER LUNA LATENT PRINT EXAMINER Ot V45.81 AORTOCORONARY BYPASS 02/09/2018 FRANCISCO ROLON Tarah Ot 174.9 MALIGN NEOPL BREAST NOS 02/09/2018 SHERRELL HOFFMAN, RIKA Bledsoe Ot 172.5 MALIG MELANOMA TRUNK 02/09/2018 SHERRELL HOFFMAN, RIKA Bledsoe Ot 709.9 SKIN DISORDER NOS 02/09/2018 SHERRELL HOFFMAN, RIKA Bledsoe Ot V72.63 PRE-PROCEDURAL LABORATORY EXAMINATION 02/09/2018 SHERRELL HOFFMAN, RIKA Bledsoe Ot V74.8 SCREEN-BACTERIAL DIS NEC 02/09/2018 ОЛЬГАFRANCISCO Ot 172.5 MALIG MELANOMA TRUNK 02/09/2018 EUGENIA YI LATENT PRINT EXAMINER Ot 172.5 MALIG MELANOMA TRUNK 02/09/2018 EUGENIA YI LATENT PRINT EXAMINER Ot 724.2 LUMBAGO 02/09/2018 EUGENIA YI LATENT PRINT EXAMINER Ot 781.2 ABNORMALITY OF GAIT 02/09/2018 EUGENIA YI LATENT PRINT EXAMINER Ot 784.0 HEADACHE 02/09/2018 EUGENIA YI LATENT PRINT EXAMINER Ot V10.3 HX OF BREAST MALIGNANCY 02/09/2018 EUGENIA YI LATENT PRINT EXAMINER Ot V15.3 HX OF IRRADIATION 02/09/2018 EUGENIA YI LATENT PRINT EXAMINER Ot V58.69 OTH MED,LT,CURRENT USE 02/09/2018 EUGENIA YI LATENT PRINT EXAMINER Ot V87.41 PERSONAL HISTORY OF ANTINEOPLASTIC CHEMO 02/09/2018 EUGENIA YI LATENT PRINT EXAMINER Ot 172.9 MALIG MELANOMA SKIN NOS 02/09/2018 EUGENIA YI LATENT PRINT EXAMINER Ot 781.2 ABNORMALITY OF GAIT 02/09/2018 EUGENIA YI LATENT PRINT EXAMINER Ot 784.0 HEADACHE 02/09/2018 EUGENIA YI LATENT PRINT EXAMINER Ot 794.9 ABN FUNCTION STUDY NEC 02/09/2018 EUGENIA YIP Ot V76.12 OTH SCREEN MAMMO-MALIGN NEOPLASM OF [place] 02/09/2018 Ot 172.9 DAVID G MELANOMA SKIN NOS 02/09/2018 Ot V76.12 OTH SCREEN MAMMO- MALIGN NEOPLASM OF [place] 02/09/2018 FRANCISCO ROLON Ot 172.9 MALIG MELANOMA SKIN NOS 02/09/2018 FRANCISCO ROLON Ot V10.3 HX OF BREAST MALIGNANCY 02/09/2018 ANGY HOFFMAN, KARLA Horowitz Ot 719.4 7 JOINT PAIN-ANKLE 02/09/2018 EUGENIA YI LATENT PRINT EXAMINER Ot 172.5 MALIG MELANOMA TRUNK 02/09/2018 EUGENIA YI LATENT PRINT EXAMINER Ot V10.3 HX OF BREAST MALIGNANCY 02/09/2018 EUGENIA YI LATENT PRINT EXAMINER Ot V15.3 HX OF IRRADIATION 02/09/2018 EUGENIA YI LATENT PRINT EXAMINER Ot V58.69 OTH MED,LT,CURRENT USE 02/09/2018 EUGENIA YI LATENT PRINT EXAMINER Ot V87.41 PERSONAL HISTORY OF ANTINEOPLASTIC CHEMO 02/09/2018 EUGENIA YI LATENT PRINT EXAMINER Ot 172.9 MALIG MELANOMA SKIN NOS 02/09/2018 EUGENIA YI LATENT PRINT EXAMINER Ot 174.9 MALIGN NEOPL BREAST NOS 02/09/2018 EUGENIA YI LATENT PRINT EXAMINER Ot 724.5 BACKACHE NOS 02/09/2018 EUGENIA YI LATENT PRINT EXAMINER Ot 172.9 MALIG MELANOMA SKIN NOS 02/09/2018 EUGENIA YI LATENT PRINT EXAMINER Ot 174.9 MALIGN NEOPL BREAST NOS 02/09/2018 EUGENIA YI LATENT PRINT EXAMINER Ot 724.5 BACKACHE NOS 02/09/2018 FRANCISCO ROLON N Ot 172.9 MALIG MELANOMA SKIN NOS 02/09/2018 FRANCISCO ROLON N Ot 786.6 CHEST SWELLING/MASS/LUMP 02/09/2018 YIEUGENIA Veras LATENT PRINT EXAMINER Ot 172.9 MALIG MELANOMA SKIN NOS 02/09/2018 KASSIDY EUGENIA Veras LATENT PRINT EXAMINER Ot V58.69 OTH MED,LT,CURRENT USE 02/09/2018 KASSIDY EUGENIA Veras LATENT PRINT EXAMINER Ot V58.83 ENCOUNTER FOR THERAPEUTIC DRUG MONITORIN 02/09/2018 KASSIDY EUGENIA Veras LATENT PRINT EXAMINER Ot 172.5 MALIG MELANOMA TRUNK 02/09/2018 EUGENIA YI S LATENT PRINT EXAMINER Ot V10.3 HX OF BREAST MALIGNANCY 02/09/2018 EUGENIA YI S LATENT PRINT EXAMINER Ot V15.3 HX OF IRRADIATION 02/09/2018 EUGENIA YI LATENT PRINT EXAMINER Ot V58.69 OTH MED,LT,CURRENT USE 02/09/2018 KASSIDY EUGENIA S LATENT PRINT EXAMINER Ot V87.41 PERSONAL HISTORY OF ANTINEOPLASTIC CHEMO 02/09/2018 JUANITO YITOD S LATENT PRINT EXAMINER Ot 172.5 MALIG MELANOMA TRUNK 02/09/2018 EUGENIA YI S LATENT PRINT EXAMINER Ot 199.1 MALIGNANT NEOPLASM NOS 02/09/2018 EUGENIA YI S LATENT PRINT EXAMINER Ot 786.2 COUGH 02/09/2018 EUGENIA YI S LATENT PRINT EXAMINER Ot V10.3 HX OF BREAST MALIGNANCY 02/09/2018 EUGENIA YI S LATENT PRINT EXAMINER Ot V15.3 HX OF IRRADIATION 02/09/2018 EUGENIA YI S LATENT PRINT EXAMINER Ot V58.69 OTH MED,LT,CURRENT USE 02/09/2018 KASSIDY EUGENIA S LATENT PRINT EXAMINER Ot V87.41 PERSONAL HISTORY OF ANTINEOPLASTIC CHEMO 02/09/2018 EUGENIA YI S LATENT PRINT EXAMINER Ot 172.5 MALIG MELANOMA TRUNK 02/09/2018 EUGENIA YI S LATENT PRINT EXAMINER Ot 199.1 MALIGNANT NEOPLASM NOS 02/09/2018 JUANITO YITOD S LATENT PRINT EXAMINER Ot 511.9 PLEURAL EFFUSION NOS 02/09/2018 EUGENIA YI S LATENT PRINT EXAMINER Ot V10.3 HX OF BREAST MALIGNANCY 02/09/2018 EUGENIA YI S LATENT PRINT EXAMINER Ot V15.3 HX OF IRRADIATION 02/09/2018 EUGENIA YI LATENT PRINT EXAMINER Ot V58.69 OTH MED,LT,CURRENT USE 02/09/2018 EUGENIA YI LATENT PRINT EXAMINER Ot V87.41 PERSONAL HISTORY OF ANTINEOPLASTIC CHEMO 02/09/2018 EUGENIA YI LATENT PRINT EXAMINER Ot 780.60 FEVER, UNSPECIFIED 02/09/2018 EUGENIA YI LATENT PRINT EXAMINER Ot 786.2 COUGH 02/09/2018 EUGENIA YI LATENT PRINT EXAMINER Ot 172.5 MALIG MELANOMA TRUNK 02/09/2018 EUGENIA YI LATENT PRINT EXAMINER Ot 199.1 MALIGNANT NEOPLASM NOS 02/09/2018 EUGENIA YI LATENT PRINT EXAMINER Ot V10.3 HX OF BREAST MALIGNANCY 02/09/2018 EUGENIA YI LATENT PRINT EXAMINER Ot V15.3 HX OF IRRADIATION 02/09/2018 EUGENIA YI LATENT PRINT EXAMINER Ot V58.69 OTH MED,LT,CURRENT USE 02/09/2018 EUGENIA YI LATENT PRINT EXAMINER Ot V87.41 PERSONAL HISTORY OF ANTINEOPLASTIC CHEMO 02/09/2018 EUGENIA YI LATENT PRINT EXAMINER Ot 414.00 CORON ATHEROSCLER NOS TYPE VESSEL, NATIV 02/09/2018 EUGENIA YI LATENT PRINT EXAMINER Ot V58.69 OTH MED,LT,CURRENT USE 02/09/2018 EUGENIA YI LATENT PRINT EXAMINER Ot V58.83 ENCOUNTER FOR THERAPEUTIC DRUG MONITORIN 02/09/2018 KARLA TRAVIS MD Ot 272.4 HYPERLIPIDEMIA NEC/NOS 02/09/2018 KARLA TRAVIS MD Ot 401.9 HYPERTENSION NOS 02/09/2018 KARLA TRAVIS MD Ot V58.6 9 OTH MED,LT,CURRENT USE 02/09/2018 EGUENIA YI LATENT PRINT EXAMINER Ot 172.5 MALIG MELANOMA TRUNK 02/09/2018 EUGENIA YI LATENT PRINT EXAMINER Ot 199.1 MALIGNANT NEOPLASM NOS 02/09/2018 UEGENIA YI LATENT PRINT EXAMINER Ot 511.9 PLEURAL EFFUSION NOS 02/09/2018 EUGENIA YI LATENT PRINT EXAMINER Ot V10.3 HX OF BREAST MALIGNANCY 02/09/2018 EUGENIA YI S LATENT PRINT EXAMINER Ot V15.3 HX OF IRRADIATION 02/09/2018 EUGENIA YI LATENT PRINT EXAMINER Ot V58.69 OTH MED,LT,CURRENT USE 02/09/2018 EUGENIA YI LATENT PRINT EXAMINER Ot V87.41 PERSONAL HISTORY OF ANTINEOPLASTIC CHEMO 02/09/2018 YIEUGENIA Veras LATENT PRINT EXAMINER Ot 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, UNSPECIFIED 02/09/2018 Ot C43.9 DAVID GNANT MELANOMA OF SKIN, UNSPECIFIED 02/09/2018 EUGENIA YI LATENT PRINT EXAMINER Ot 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, UNSPECIFIED 02/09/2018 YI EUGENIA Veras LATENT PRINT EXAMINER Ot 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 02/09/2018 YI EUGENIA Veras LATENT PRINT EXAMINER Ot 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 02/09/2018 EUGENIA YI LATENT PRINT EXAMINER Ot 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 02/09/2018 KASSIDY EUGENIA Veras LATENT PRINT EXAMINER Ot Z85.3 PERSONAL HISTORY OF MALIGNANT NEOPLASM O 02/09/2018 KASSIDY EUGENIA Veras LATENT PRINT EXAMINER Ot Z92.21 PERSONAL HISTORY OF ANTINEOPLASTIC CHEMO 02/09/2018 JUANITO YITOD Veras LATENT PRINT EXAMINER Ot Z92.3 PERSONAL HISTORY OF IRRADIATION 02/09/2018 YI EUGENIA Veras LATENT PRINT EXAMINER Ot 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 02/09/2018 YI EUGENIA Veras LATENT PRINT EXAMINER Ot Z79.899 OTHER [facility] (CURRENT) DRUG THERAPY 02/09/2018 KASSIDY EUGENIA Veras LATENT PRINT EXAMINER Ot Z85.3 PERSONAL HISTORY OF MALIGNANT NEOPLASM O 02/09/2018 KASSIDY EUGENIA Veras LATENT PRINT EXAMINER Ot Z92.21 PERSONAL HISTORY OF ANTINEOPLASTIC CHEMO 02/09/2018 KASSIDY EUGENIA Veras LATENT PRINT EXAMINER Ot Z92.3 PERSONAL HISTORY OF IRRADIATION 02/09/2018 JUANITO YITOD Veras LATENT PRINT EXAMINER Ot 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 02/09/2018 YI EUGENIA Veras LATENT PRINT EXAMINER Ot 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 02/09/2018 KASSIDY EUGENIA Veras LATENT PRINT EXAMINER Ot Z85.3 PERSONAL HISTORY OF MALIGNANT NEOPLASM O 02/09/2018 JUANITO YITOD S LATENT PRINT EXAMINER Ot Z92.3 PERSONAL HISTORY OF IRRADIATION 02/09/2018 SHERRELL HOFFMAN, RIKA Bledsoe Ot L98.9 DISORDER OF THE SKIN AND SUBCUTANEOUS TI 02/09/2018 SHERRELL HOFFMAN, RIKA Bledsoe Ot Z01.818 ENCOUNTER FOR OTHER PREPROCEDURAL EXAMIN 02/09/2018 JUANITO YITOD Veras LATENT PRINT EXAMINER Ot 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 02/09/2018 EUGENIA YI LATENT PRINT EXAMINER Ot 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 02/09/2018 EUGENIA YI LATENT PRINT EXAMINER Ot C77.3 SEC AND UNSP MALIG NEOPLASM OF [place] 02/09/2018 EUGENIA YI LATENT PRINT EXAMINER Ot Z79.899 OTHER [facility] (CURRENT) DRUG THERAPY 02/09/2018 EUGENIA YI S LATENT PRINT EXAMINER Ot Z85.3 PERSONAL HISTORY OF MALIGNANT NEOPLASM O 02/09/2018 EUGENIA YI S LATENT PRINT EXAMINER Ot Z92.21 PERSONAL HISTORY OF ANTINEOPLASTIC CHEMO 02/09/2018 EUGENIA YI LATENT PRINT EXAMINER Ot Z92.3 PERSONAL HISTORY OF IRRADIATION 02/09/2018 EUGENIA YI LATENT PRINT EXAMINER Ot 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 02/09/2018 EUGENIA YI LATENT PRINT EXAMINER Ot C77.3 SEC AND UNSP MALIG NEOPLASM OF [place] 02/09/2018 EUGENIA YI LATENT PRINT EXAMINER Ot Z79.899 OTHER [facility] (CURRENT) DRUG THERAPY 02/09/2018 EUGENIA YI LATENT PRINT EXAMINER Ot Z85.3 PERSONAL HISTORY OF MALIGNANT NEOPLASM O 02/09/2018 EUGENIA YI LATENT PRINT EXAMINER Ot Z92.21 PERSONAL HISTORY OF ANTINEOPLASTIC CHEMO 02/09/2018 EUGENIA YI LATENT PRINT EXAMINER Ot Z92.3 PERSONAL HISTORY OF IRRADIATION 02/09/2018 EUGENIA YI LATENT PRINT EXAMINER Ot 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 02/09/2018 EUGENIA YI S LATENT PRINT EXAMINER Ot 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 02/09/2018 EUGENIA YI LATENT PRINT EXAMINER Ot C77.3 SEC AND UNSP MALIG NEOPLASM OF [place] 02/09/2018 EUGENIA YI S LATENT PRINT EXAMINER Ot Z79.899 OTHER [facility] (CURRENT) DRUG THERAPY 02/09/2018 EUGENIA YI S LATENT PRINT EXAMINER Ot Z85.3 PERSONAL HISTORY OF MALIGNANT NEOPLASM O 02/09/2018 EUGENIA YI S LATENT PRINT EXAMINER Ot Z92.21 PERSONAL HISTORY OF ANTINEOPLASTIC CHEMO 02/09/2018 EUGENIA YI S LATENT PRINT EXAMINER Ot Z92.3 PERSONAL HISTORY OF IRRADIATION 02/09/2018 EUGENIA YI S LATENT PRINT EXAMINER Ot 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 02/09/2018 EUGENIA YI LATENT PRINT EXAMINER Ot C77.3 SEC AND UNSP MALIG NEOPLASM OF [place] 02/09/2018 EUGENIA YI LATENT PRINT EXAMINER Ot 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 02/09/2018 EUGENIA YI LATENT PRINT EXAMINER Ot Z85.3 PERSONAL HISTORY OF MALIGNANT NEOPLASM O 02/09/2018 EUGENIA YI S LATENT PRINT EXAMINER Ot Z92.21 PERSONAL HISTORY OF ANTINEOPLASTIC CHEMO 02/09/2018 EUGENIA YI S LATENT PRINT EXAMINER Ot Z92.3 PERSONAL HISTORY OF IRRADIATION 02/09/2018 EUGENIA YI LATENT PRINT EXAMINER Ot 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 02/09/2018 EUGENIA YI LATENT PRINT EXAMINER Ot C77.3 SEC AND UNSP MALIG NEOPLASM OF [place] 02/09/2018 EUGENIA YI LATENT PRINT EXAMINER Ot Z79.899 OTHER [facility] (CURRENT) DRUG THERAPY 02/09/2018 EUGENIA YI LATENT PRINT EXAMINER Ot Z85.3 PERSONAL HISTORY OF MALIGNANT NEOPLASM O 02/09/2018 EUGENIA YI S LATENT PRINT EXAMINER Ot Z92.21 PERSONAL HISTORY OF ANTINEOPLASTIC CHEMO 02/09/2018 EUGENIA YI S LATENT PRINT EXAMINER Ot Z92.3 PERSONAL HISTORY OF IRRADIATION 02/09/2018 EUGENIA YI LATENT PRINT EXAMINER Ot 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 02/09/2018 EUGENIA YI LATENT PRINT EXAMINER Ot C77.3 SEC AND UNSP MALIG NEOPLASM OF [place] 02/09/2018 EUGENIA YI LATENT PRINT EXAMINER Ot Z79.899 OTHER [facility] (CURRENT) DRUG THERAPY 02/09/2018 EUGENIA YI S LATENT PRINT EXAMINER Ot Z85.3 PERSONAL HISTORY OF MALIGNANT NEOPLASM O 02/09/2018 EUGENIA YI S LATENT PRINT EXAMINER Ot Z92.21 PERSONAL HISTORY OF ANTINEOPLASTIC CHEMO 02/09/2018 EUGENIA YI S LATENT PRINT EXAMINER Ot Z92.3 PERSONAL HISTORY OF IRRADIATION 02/09/2018 EUGENIA YI LATENT PRINT EXAMINER Ot M79.89 OTHER SPECIFIED SOFT TISSUE DISORDERS 02/09/2018 EUGENIA YI LATENT PRINT EXAMINER Ot 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 02/09/2018 EUGENIA YIP Ot C77.3 SEC AND UNSP MALIG NEOPLASM OF [place] 02/09/2018 EUGENIA YI LATENT PRINT EXAMINER Ot 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 02/09/2018 EUGENIA YI LATENT PRINT EXAMINER Ot Z85.3 PERSONAL HISTORY OF MALIGNANT NEOPLASM O 02/09/2018 EUGENIA YI LATENT PRINT EXAMINER Ot Z92.21 PERSONAL HISTORY OF ANTINEOPLASTIC CHEMO 02/09/2018 EUGENIA YI LATENT PRINT EXAMINER Ot Z92.3 PERSONAL HISTORY OF IRRADIATION 02/09/2018 KARLA TRAVIS MD Ot 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, UNSPECIFIED 02/09/2018 KARLA TRAVIS MD Ot E78.4 OTHER HYPERLIPIDEMIA 02/09/2018 KARLA TRAVIS MD Ot I10 ESSENTIAL (PRIMARY) HYPERTENSION 02/09/2018 KARLA TRAVIS MD Ot Z79.8 99 OTHER [facility] (CURRENT) DRUG THERAPY 02/09/2018 VERNON HOFFMAN FACC, ALI FACP CCDS Ot 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 02/09/2018 VERONN FARNSWORTHC, ALI FACP CCDS Ot E78.4 OTHER HYPERLIPIDEMIA 02/09/2018 VERNON HOFFMAN FACC, ALI FACP CCDS Ot I25.10 ATHSCL HEART DISEASE OF [place] CORONARY 02/09/2018 VERNON HOFFMAN FACC, ALI FACP CCDS Ot I65.23 OCCLUSION AND STENOSIS OF BILATERAL [place] 02/09/2018 VERNON HOFFMAN FACC, ALI FACP CCDS Ot N18.3 CHRONIC KIDNEY DISEASE, STAGE 3 (MODERAT 02/09/2018 EUGENIA YI LATENT PRINT EXAMINER Ot 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 02/09/2018 EUGENIA YI LATENT PRINT EXAMINER Ot C77.3 SEC AND UNSP MALIG NEOPLASM OF [place] 02/09/2018 EUGENIA YI LATENT PRINT EXAMINER Ot 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 02/09/2018 EUGENIA YI LATENT PRINT EXAMINER Ot Z85.3 PERSONAL HISTORY OF MALIGNANT NEOPLASM O 02/09/2018 EUGENIA YI LATENT PRINT EXAMINER Ot Z92.21 PERSONAL HISTORY OF ANTINEOPLASTIC CHEMO 02/09/2018 EUGENIA YI LATENT PRINT EXAMINER Ot Z92.3 PERSONAL HISTORY OF IRRADIATION 02/09/2018 EUGENIA YI Rito LATENT PRINT EXAMINER Ot 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 02/09/2018 EUGENIA YI Rito LATENT PRINT EXAMINER Ot C77.3 SEC AND UNSP MALIG NEOPLASM OF [place] 02/09/2018 FRANCISCO ROLON N Ot C77.3 SEC AND UNSP MALIG NEOPLASM OF [place] 02/09/2018 FRANCISCO ROLON N Ot M62.9 DISORDER OF MUSCLE, UNSPECIFIED 02/09/2018 ОЛЬГАFRANCISCO MAE N Ot R94.8 ABNORMAL RESULTS OF FUNCTION STUDIES OF 02/09/2018 KARLA TRAVIS MD Ot R53.8 3 OTHER FATIGUE 02/09/2018 EUGENIA YI S LATENT PRINT EXAMINER Ot E80.6 OTHER DISORDERS OF BILIRUBIN METABOLISM 02/09/2018 EUGENIA YI S LATENT PRINT EXAMINER Ot 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 02/09/2018 EUGENIA YI LATENT PRINT EXAMINER Ot E80.6 OTHER DISORDERS OF BILIRUBIN METABOLISM 02/09/2018 ОЛЬГАFRANCISCO MAE N Ot 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 02/09/2018 EUGENIA YI LATENT PRINT EXAMINER Ot N 63 UNSPECIFIED LUMP IN BREAST 02/09/2018 EUGENIA YI S LATENT PRINT EXAMINER Ot Z85.3 PERSONAL HISTORY OF MALIGNANT NEOPLASM O 02/09/2018 EUGENIA YI S LATENT PRINT EXAMINER Ot 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 02/09/2018 EUGENIA YI LATENT PRINT EXAMINER Ot R26.9 UNSPECIFIED ABNORMALITIES OF GAIT AND MO 02/09/2018 EUGENIA YI S LATENT PRINT EXAMINER Ot R 42 DIZZINESS AND GIDDINESS 02/09/2018 EUGENIA YI S LATENT PRINT EXAMINER Ot R 51 HEADACHE 02/09/2018 KARLA TRAVIS MD Ot C43.5 9 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 02/09/2018 KARLA TRAVIS MD Ot R42 DIZZINESS AND GIDDINESS 02/09/2018 KARLA TRAVIS MD Ot Z85.3 PERSONAL HISTORY OF MALIGNANT NEOPLASM O 02/09/2018 KARLA TRAVIS MD Ot E03.9 HYPOTHYROIDISM, UNSPECIFIED 02/09/2018 EUGENIA YI S LATENT PRINT EXAMINER Ot 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 02/09/2018 KARLA TRAVIS MD Ot E78.5 HYPERLIPIDEMIA, UNSPECIFIED 02/09/2018 VERNON HOFFMAN FAC, ALI FACP CCDS Ot E78.4 OTHER HYPERLIPIDEMIA 02/09/2018 VERNON HOFFMAN FAC, ALI FACP CCDS Ot I10 ESSENTIAL (PRIMARY) HYPERTENSION 02/09/2018 VERNON HOFFMAN FACC, ALI FACP CCDS Ot I25.10 ATHSCL HEART DISEASE OF [place] CORONARY 02/09/2018 VERNON HOFFMAN FACC, ALI FACP CCDS Ot I65.23 OCCLUSION AND STENOSIS OF [place]ILATERAL [place] 02/09/2018 VERNON HOFFMAN [facility], ALI FACP CCDS Ot R06.09 OTHER FORMS OF DYSPNEA 02/09/2018 VERNON HOFFMAN [facility], ALI FACP CCDS Ot R53.1 WEAKNESS 02/09/2018 VERNON HOFFMAN FAC, ALI FACP CCDS Ot E78.4 OTHER HYPERLIPIDEMIA 02/09/2018 VERNON HOFFMAN FAC, ALI FACP CCDS Ot I10 ESSENTIAL (PRIMARY) HYPERTENSION 02/09/2018 VERNON HOFFMAN [facility], ALI FACP CCDS Ot I25.10 ATHSCL HEART DISEASE OF [place] CORONARY 02/09/2018 VERNON HOFFMAN [facility], ALI FACP CCDS Ot I65.23 OCCLUSION AND STENOSIS OF [place]AL [place] 02/09/2018 VERNON HOFFMAN [facility], ALI FACP CCDS Ot R06.09 OTHER FORMS OF DYSPNEA 02/09/2018 VERNON HOFFMAN [facility], ALI FACP CCDS Ot R53.1 WEAKNESS 02/09/2018 EUGENIA YI LATENT PRINT EXAMINER Ot 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 02/09/2018 EUGENIA YI LATENT PRINT EXAMINER Ot G93.89 OTHER SPECIFIED DISORDERS OF BRAIN 02/09/2018 EUGENIA YI LATENT PRINT EXAMINER Ot R 42 DIZZINESS AND GIDDINESS 02/09/2018 EUGENIA YI LATENT PRINT EXAMINER Ot 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, UNSPECIFIED 02/09/2018 EUGENIA YI LATENT PRINT EXAMINER Ot R91.1 SOLITARY PULMONARY NODULE 02/09/2018 EUGENIA YI LATENT PRINT EXAMINER Ot Z85.820 PERSONAL HISTORY OF MALIGNANT MELANOMA O 02/09/2018 KARLA TRAVIS MD Ot E03.9 HYPOTHYROIDISM, UNSPECIFIED 02/09/2018 KARLA TRAVIS MD Ot Z79.8 99 OTHER [facility] (CURRENT) DRUG THERAPY 02/09/2018 YIEUGENIA Veras LATENT PRINT EXAMINER Ot C77.3 SEC AND UNSP MALIG NEOPLASM OF [place] 02/09/2018 YIJUANITOTOD Veras LATENT PRINT EXAMINER Ot Z85.820 PERSONAL HISTORY OF MALIGNANT MELANOMA O 02/09/2018 ОЛЬГА, DIANAAN N Ot 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 02/09/2018 ОЛЬГА DIANAAN N Ot C77.3 SEC AND UNSP MALIG NEOPLASM OF [place] 02/09/2018 ОЛЬГА, BOBAN N Ot C79.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 02/09/2018 ОЛЬГА BOBAN N Ot E03.9 HYPOTHYROIDISM, UNSPECIFIED 02/09/2018 ОЛЬГА, BOBAN N Ot E78.5 HYPERLIPIDEMIA, UNSPECIFIED 02/09/2018 ОЛЬГА, BOBAN N Ot I12.9 HYPERTENSIVE CHRONIC KIDNEY DISEASE W ST 02/09/2018 ОЛЬГА, BOBAN N Ot I25.10 ATHSCL HEART DISEASE OF [place] CORONARY 02/09/2018 ОЛЬГА BOBAN N Ot N18.3 CHRONIC KIDNEY DISEASE, STAGE 3 (MODERAT 02/09/2018 ОЛЬГА BOBAN N Ot R42 DIZZINESS AND GIDDINESS 02/09/2018 ОЛЬГА BOBAN N Ot Z79.899 OTHER [facility] (CURRENT) DRUG THERAPY 02/09/2018 ОЛЬГА DIANAAN N Ot Z85.3 PERSONAL HISTORY OF MALIGNANT NEOPLASM O 02/09/2018 ОЛЬГА, BOBAN N Ot Z92.21 PERSONAL HISTORY OF ANTINEOPLASTIC CHEMO 02/09/2018 ОЛЬГА, DIANAAN N Ot Z92.3 PERSONAL HISTORY OF IRRADIATION 02/10/2018 ОЛЬГА DIANAAN N Ot 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 02/10/2018 ОЛЬГА BOBAN N Ot C77.3 SEC AND UNSP MALIG NEOPLASM OF [place] 02/10/2018 ОЛЬГА, BOBAN N Ot C79.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 02/10/2018 ОЛЬГА BOBAN N Ot E03.9 HYPOTHYROIDISM, UNSPECIFIED 02/10/2018 ОЛЬГА, BOBAN N Ot E78.5 HYPERLIPIDEMIA, UNSPECIFIED 02/10/2018 ОЛЬГА, BOBAN N Ot I12.9 HYPERTENSIVE CHRONIC KIDNEY DISEASE W ST 02/10/2018 ОЛЬГА, BOBAN N Ot I25.10 ATHSCL HEART DISEASE OF [place] CORONARY 02/10/2018 ОЛЬГА FRANCISCO N Ot N18.3 CHRONIC KIDNEY DISEASE, STAGE 3 (MODERAT 02/10/2018 ОЛЬГАFRANCISCO N Ot R42 DIZZINESS AND GIDDINESS 02/10/2018 ОЛЬГАFRANCISCO N Ot 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 02/10/2018 ОЛЬГА FRANCISCO N Ot Z85.3 PERSONAL HISTORY OF MALIGNANT NEOPLASM O 02/10/2018 ОЛЬГАFRANCISCO N Ot Z92.21 PERSONAL HISTORY OF ANTINEOPLASTIC CHEMO 02/10/2018 ОЛЬГА FRANCISCO N Ot Z92.3 PERSONAL HISTORY OF IRRADIATION 02/13/2018 KARLA TRAVIS MD Ot 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, UNSP WITHOUT THYROTOXIC 02/13/2018 KARLA TRAVIS MD Ot E78.4 OTHER HYPERLIPIDEMIA 02/13/2018 KARLA TRAVIS MD Ot I10 ESSENTIAL (PRIMARY) HYPERTENSION 03/03/2018 KARLA TRAVIS MD Ot 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, UNSP WITHOUT THYROTOXIC 03/03/2018 KARLA TRAVIS MD Ot E78.4 OTHER HYPERLIPIDEMIA 03/03/2018 KARLA TRAVIS MD Ot I10 ESSENTIAL (PRIMARY) HYPERTENSION 03/07/2018 FRANCISCO ROLON N Ot 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 03/07/2018 FRANCISCO ROLON Ot C77.3 SEC AND UNSP MALIG NEOPLASM OF [place] 03/07/2018 FRANCISCO ROLON N Ot C79.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 03/07/2018 FRANCISCO ROLON N Ot E03.9 HYPOTHYROIDISM, UNSPECIFIED 03/07/2018 FRANCISCO ROLON N Ot E78.5 HYPERLIPIDEMIA, UNSPECIFIED 03/07/2018 ОЛЬГАFRANCISCO N Ot I12.9 HYPERTENSIVE CHRONIC KIDNEY DISEASE W ST 03/07/2018 FRANCISCO ROLON N Ot I25.10 ATHSCL HEART DISEASE OF [place] CORONARY 03/07/2018 ОЛЬГА, FRANCISCO N Ot N18.3 CHRONIC KIDNEY DISEASE, STAGE 3 (MODERAT 03/07/2018 ОЛЬГАFRANCISCO N Ot R42 DIZZINESS AND GIDDINESS 03/07/2018 ОЛЬГАFRANCISCO N Ot Z79.899 OTHER [facility] (CURRENT) DRUG THERAPY 03/07/2018 FRANCISCO ROLON N Ot Z85.3 PERSONAL HISTORY OF MALIGNANT NEOPLASM O 03/07/2018 FRANCISCO ROLON N Ot Z92.21 PERSONAL HISTORY OF ANTINEOPLASTIC CHEMO 03/07/2018 FRANCISCO ROLON N Ot Z92.3 PERSONAL HISTORY OF IRRADIATION 03/15/2018 FRANCISCO ROLON N Ot 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 03/15/2018 FRANCISCO ROLON N Ot C77.3 SEC AND UNSP MALIG NEOPLASM OF [place] 03/15/2018 FRANCISCO ROLON N Ot C79.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 03/15/2018 FRANCISCO ROLON N Ot E03.9 HYPOTHYROIDISM, UNSPECIFIED 03/15/2018 FRANCISCO ROLON N Ot E78.5 HYPERLIPIDEMIA, UNSPECIFIED 03/15/2018 FRANCISCO ROLON N Ot I12.9 HYPERTENSIVE CHRONIC KIDNEY DISEASE W ST 03/15/2018 FRANCISCO ROLON N Ot I25.10 ATHSCL HEART DISEASE OF [place] CORONARY 03/15/2018 FRANCISCO ROLON N Ot N18.3 CHRONIC KIDNEY DISEASE, STAGE 3 (MODERAT 03/15/2018 FRANCISCO ROLON N Ot R42 DIZZINESS AND GIDDINESS 03/15/2018 FRANCISCO ROLON N Ot Z45.2 ENCOUNTER FOR ADJUSTMENT AND MANAGEMENT 03/15/2018 FRANCISCO ROLON N Ot 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 03/15/2018 FRANCISCO ROLON N Ot Z85.3 PERSONAL HISTORY OF MALIGNANT NEOPLASM O 03/15/2018 FRANCISCO ROLON N Ot Z92.21 PERSONAL HISTORY OF ANTINEOPLASTIC CHEMO 03/15/2018 FRANCISCO ROLON N Ot Z92.3 PERSONAL HISTORY OF IRRADIATION 03/15/2018 GORDON WEATHERS MD Ot 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 03/15/2018 GORDON WEATHERS MD, Ot C77.3 SEC AND UNSP MALIG NEOPLASM OF [place] 03/15/2018 GORDON WEATHERS MD Ot C79.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 03/15/2018 GORDON WEATHERS MD Ot E03.9 HYPOTHYROIDISM, UNSPECIFIED 03/15/2018 GORDON WEATHERS MD Ot E78.5 HYPERLIPIDEMIA, UNSPECIFIED 03/15/2018 GORDON WEATHERS MD Ot I12.9 HYPERTENSIVE CHRONIC KIDNEY DISEASE W ST 03/15/2018 GORDON WEATHERS MD Ot I25.10 ATHSCL HEART DISEASE OF [place] CORONARY 03/15/2018 GORDON WEATHERS MD Ot N18.3 CHRONIC KIDNEY DISEASE, STAGE 3 (MODERAT 03/15/2018 GORDON WEATHERS MD Ot R42 DIZZINESS AND GIDDINESS 03/15/2018 GORDON WEATHERS MD Ot 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 03/15/2018 GORDON WEATHERS MD Ot Z85.3 PERSONAL HISTORY OF MALIGNANT NEOPLASM O 03/15/2018 GORDON WEATHERS MD Ot Z92.21 PERSONAL HISTORY OF ANTINEOPLASTIC CHEMO 03/15/2018 GORDON WEATHERS MD Ot Z92.3 PERSONAL HISTORY OF IRRADIATION 04/07/2018 GORDON WEATHERS MD Ot 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 04/07/2018 GORDON WEATHERS MD Ot C77.3 SEC AND UNSP MALIG NEOPLASM OF [place] 04/07/2018 GORDON WEATHERS MD Ot C79.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 04/07/2018 GORDON WEATHERS MD Ot E03.9 HYPOTHYROIDISM, UNSPECIFIED 04/07/2018 GORDON WEATHERS MD Ot E78.5 HYPERLIPIDEMIA, UNSPECIFIED 04/07/2018 GORDON WEATHERS MD Ot I12.9 HYPERTENSIVE CHRONIC KIDNEY DISEASE W ST 04/07/2018 GORDON WEATHERS MD Ot I25.10 ATHSCL HEART DISEASE OF [place] CORONARY 04/07/2018 GORDON WEATHERS MD Ot N18.3 CHRONIC KIDNEY DISEASE, STAGE 3 (MODERAT 04/07/2018 GORDON WEATHERS MD Ot R42 DIZZINESS AND GIDDINESS 04/07/2018 GORDON WEATHERS MD Ot 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 04/07/2018 GORDON WEATHERS MD Ot Z85.3 PERSONAL HISTORY OF MALIGNANT NEOPLASM O 04/07/2018 GORDON WEATHERS MD Ot Z92.21 PERSONAL HISTORY OF ANTINEOPLASTIC CHEMO 04/07/2018 GORDON WEATHERS MD Ot Z92.3 PERSONAL HISTORY OF IRRADIATION 04/16/2018 GORDON WEATHERS MD Ot 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 04/16/2018 GORDON WEATHERS MD Ot C77.3 SEC AND UNSP MALIG NEOPLASM OF [place] 04/16/2018 MILVIA WEATHERS MDNER Ot C79.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 04/16/2018 GORDON WEATHERS MD Ot E03.9 HYPOTHYROIDISM, UNSPECIFIED 04/16/2018 GORDON WEATHERS MD Ot E78.5 HYPERLIPIDEMIA, UNSPECIFIED 04/16/2018 GORDON WEATHERS MD Ot I12.9 HYPERTENSIVE CHRONIC KIDNEY DISEASE W ST 04/16/2018 GORDON WEATHERS MD Ot I25.10 ATHSCL HEART DISEASE OF [place] CORONARY 04/16/2018 GORDON WEATHERS MD Ot N18.3 CHRONIC KIDNEY DISEASE, STAGE 3 (MODERAT 04/16/2018 GORDON WEATHERS MD Ot R42 DIZZINESS AND GIDDINESS 04/16/2018 GORDON WEATHERS MD Ot Z79.899 OTHER [facility] (CURRENT) DRUG THERAPY 04/16/2018 GORDON WEATHERS MD Ot Z85.3 PERSONAL HISTORY OF MALIGNANT NEOPLASM O 04/16/2018 GORDON WEATHERS MD Ot Z92.21 PERSONAL HISTORY OF ANTINEOPLASTIC CHEMO 04/16/2018 GORDON WEATHERS MD Ot Z92.3 PERSONAL HISTORY OF IRRADIATION 04/19/2018 GORDON WEATHERS MD Ot 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 04/19/2018 GORDON WEATHERS MD Ot C77.3 SEC AND UNSP MALIG NEOPLASM OF [place] 04/19/2018 GORDON WEATHERS MD Ot C79.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 04/19/2018 GORDON WEATHERS MD Ot E03.9 HYPOTHYROIDISM, UNSPECIFIED 04/19/2018 GORDON WEATHERS MD Ot E78.5 HYPERLIPIDEMIA, UNSPECIFIED 04/19/2018 GORDON WEATHERS MD Ot I12.9 HYPERTENSIVE CHRONIC KIDNEY DISEASE W ST 04/19/2018 GORDON WEATHERS MD Ot I25.10 ATHSCL HEART DISEASE OF [place] CORONARY 04/19/2018 GORDON WEATHERS MD Ot N18.3 CHRONIC KIDNEY DISEASE, STAGE 3 (MODERAT 04/19/2018 GORDON WEATHERS MD Ot R42 DIZZINESS AND GIDDINESS 04/19/2018 GORDON WEATHERS MD Ot 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 04/19/2018 GORDON WEATHERS MD Ot Z85.3 PERSONAL HISTORY OF MALIGNANT NEOPLASM O 04/19/2018 GORDON WEATHERS MD Ot Z92.21 PERSONAL HISTORY OF ANTINEOPLASTIC CHEMO 04/19/2018 GORDON WEATHERS MD Ot Z92.3 PERSONAL HISTORY OF IRRADIATION 04/24/2018 DARRYL POPE MD M Ot H93.3X9 DISORDERS OF UNSPECIFIED ACOUSTIC NERVE 04/24/2018 DARRYL POPE MD M Ot I63.89 OTHER CEREBRAL INFARCTION 04/24/2018 DARRYL POPE MD M Ot Z01.812 ENCOUNTER FOR PREPROCEDURAL LABORATORY E 04/24/2018 DARRYL POPE MD M Ot Z85.3 PERSONAL HISTORY OF MALIGNANT NEOPLASM O 04/24/2018 DARRYL POPE MD M Ot Z85.820 PERSONAL HISTORY OF MALIGNANT MELANOMA O 05/02/2018 GORDON WEATHERS MD Ot 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 05/02/2018 GORDON WEATHERS MD Ot C50.919 MALIGNANT NEOPLASM OF UNSP SITE OF UNSPE 05/02/2018 GORDON WEATHERS MD Ot R10.31 RIGHT LOWER QUADRANT PAIN 05/02/2018 GORDON WEATHERS MD Ot R91.1 SOLITARY PULMONARY NODULE 05/16/2018 DARRYL POPE MD Ot H93.3X9 DISORDERS OF UNSPECIFIED ACOUSTIC NERVE 05/16/2018 DARRYL POPE MD M Ot I63.89 OTHER CEREBRAL INFARCTION 05/16/2018 DARRYL POPE MD M Ot Z01.812 ENCOUNTER FOR PREPROCEDURAL LABORATORY E 05/16/2018 DARRYL POPE MD Ot Z85.3 PERSONAL HISTORY OF MALIGNANT NEOPLASM O 05/16/2018 DARRYL POPE MD M Ot Z85.820 PERSONAL HISTORY OF MALIGNANT MELANOMA O 05/26/2018 GORDON WEATHERS MD Ot 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 05/26/2018 GORDON WEATHERS MD Ot C50.919 MALIGNANT NEOPLASM OF UNSP SITE OF UNSPE 05/26/2018 GORDON WEATHERS MD Ot R10.31 RIGHT LOWER QUADRANT PAIN 05/26/2018 GORDON WEATHERS MD Ot R91.1 SOLITARY PULMONARY NODULE 06/06/2018 DARRYL POPE MD M Ot H93.3X9 DISORDERS OF UNSPECIFIED ACOUSTIC NERVE 06/06/2018 DARRYL POPE MD M Ot I63.89 OTHER CEREBRAL INFARCTION 06/06/2018 DARRYL POPE MD M Ot Z01.812 ENCOUNTER FOR PREPROCEDURAL LABORATORY E 06/06/2018 DARRYL POPE MD M Ot Z85.3 PERSONAL HISTORY OF MALIGNANT NEOPLASM O 06/06/2018 NIKO HOFFMAN, DARRYL Bledsoe Ot Z85.820 PERSONAL HISTORY OF MALIGNANT MELANOMA O 06/12/2018 ОЛЬГАFRANCISCO MAE N Ot 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 06/12/2018 ОЛЬГА, BOBAN N Ot C77.3 SEC AND UNSP MALIG NEOPLASM OF [place] 06/12/2018 ОЛЬГА, BOBAN N Ot C79.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 06/12/2018 ОЛЬГА, BOBAN N Ot E03.9 HYPOTHYROIDISM, UNSPECIFIED 06/12/2018 ОЛЬГА, BOBAN N Ot E78.5 HYPERLIPIDEMIA, UNSPECIFIED 06/12/2018 ОЛЬГА, BOBAN N Ot I12.9 HYPERTENSIVE CHRONIC KIDNEY DISEASE W ST 06/12/2018 ОЛЬГА, BOBAN N Ot I25.10 ATHSCL HEART DISEASE OF [place] CORONARY 06/12/2018 ОЛЬГА, BOBAN N Ot N18.3 CHRONIC KIDNEY DISEASE, STAGE 3 (MODERAT 06/12/2018 ОЛЬГА, BOBAN N Ot 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 06/12/2018 ОЛЬГА BOBAN N Ot Z85.3 PERSONAL HISTORY OF MALIGNANT NEOPLASM O 06/12/2018 ОЛЬГА BOBAN N Ot Z92.21 PERSONAL HISTORY OF ANTINEOPLASTIC CHEMO 06/12/2018 ОЛЬГА, BOBAN N Ot Z92.3 PERSONAL HISTORY OF IRRADIATION 08/02/2018 ОЛЬГА BOBPAPA N Ot 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 08/02/2018 ОЛЬГА, BOBPAPA N Ot C77.3 SEC AND UNSP MALIG NEOPLASM OF [place] 08/02/2018 ОЛЬГА, BOBAN N Ot C79.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 08/02/2018 ОЛЬГА, BOBAN N Ot E03.9 HYPOTHYROIDISM, UNSPECIFIED 08/02/2018 ОЛЬГА, BOBAN N Ot E78.5 HYPERLIPIDEMIA, UNSPECIFIED 08/02/2018 ОЛЬГА, BOBAN N Ot I12.9 HYPERTENSIVE CHRONIC KIDNEY DISEASE W ST 08/02/2018 ОЛЬГА, BOBAN N Ot I25.10 ATHSCL HEART DISEASE OF [place] CORONARY 08/02/2018 ОЛЬГА, BOBAN N Ot N18.3 CHRONIC KIDNEY DISEASE, STAGE 3 (MODERAT 08/02/2018 ОЛЬГА, BOBAN N Ot Z79.899 OTHER [facility] (CURRENT) DRUG THERAPY 08/02/2018 ОЛЬГАDIANA MAEAN N Ot Z85.3 PERSONAL HISTORY OF MALIGNANT NEOPLASM O 08/02/2018 ОЛЬГАFRANCISCO MAE N Ot Z92.21 PERSONAL HISTORY OF ANTINEOPLASTIC CHEMO 08/02/2018 FRANCISCO ROLON N Ot Z92.3 PERSONAL HISTORY OF IRRADIATION 08/03/2018 ОЛЬГА DIANAAN N Ot 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 08/03/2018 ОЛЬГА DIANAAN N Ot C77.3 SEC AND UNSP MALIG NEOPLASM OF [place] 08/03/2018 ОЛЬГА BOBAN N Ot C79.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 08/03/2018 ОЛЬГА DIANAAN N Ot E03.9 HYPOTHYROIDISM, UNSPECIFIED 08/03/2018 ОЛЬГА, BOBAN N Ot E78.5 HYPERLIPIDEMIA, UNSPECIFIED 08/03/2018 ОЛЬГА, BOBAN N Ot I12.9 HYPERTENSIVE CHRONIC KIDNEY DISEASE W ST 08/03/2018 ОЛЬГАDIANAAN N Ot I25.10 ATHSCL HEART DISEASE OF [place] CORONARY 08/03/2018 ОЛЬГА FRANCISCO N Ot N18.3 CHRONIC KIDNEY DISEASE, STAGE 3 (MODERAT 08/03/2018 ОЛЬГАDIANA MAEAN N Ot 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 08/03/2018 FRANCISCO ROLON N Ot Z85.3 PERSONAL HISTORY OF MALIGNANT NEOPLASM O 08/03/2018 FRANCISCO ROLON N Ot Z92.21 PERSONAL HISTORY OF ANTINEOPLASTIC CHEMO 08/03/2018 ОЛЬГА DIANAPAPA N Ot Z92.3 PERSONAL HISTORY OF IRRADIATION 08/03/2018 ОЛЬГА FRANCISCO N Ot 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 08/03/2018 ОЛЬГА FRANCISCO N Ot C77.3 SEC AND UNSP MALIG NEOPLASM OF [place] 08/03/2018 ОЛЬГА DIANAAN N Ot C79.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 08/03/2018 ОЛЬГА DIANAAN N Ot E03.9 HYPOTHYROIDISM, UNSPECIFIED 08/03/2018 ОЛЬГА BOBAN N Ot E78.5 HYPERLIPIDEMIA, UNSPECIFIED 08/03/2018 ОЛЬГАDIANAAN N Ot I12.9 HYPERTENSIVE CHRONIC KIDNEY DISEASE W ST 08/03/2018 ОЛЬГА, BOBAN N Ot I25.10 ATHSCL HEART DISEASE OF [place] CORONARY 08/03/2018 ОЛЬГАFRANCISCO N Ot N18.3 CHRONIC KIDNEY DISEASE, STAGE 3 (MODERAT 08/03/2018 ОЛЬГА, DIANAPAPA N Ot 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 08/03/2018 ОЛЬГА DIANAPAPA N Ot Z85.3 PERSONAL HISTORY OF MALIGNANT NEOPLASM O 08/03/2018 ОЛЬГА, DIANAPAPA N Ot Z92.21 PERSONAL HISTORY OF ANTINEOPLASTIC CHEMO 08/03/2018 ОЛЬГА, FRANCISCO N Ot Z92.3 PERSONAL HISTORY OF IRRADIATION 09/20/2018 ОЛЬГА, DIANAAN N Ot 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 09/20/2018 ОЛЬГА FRANCISCO N Ot C77.3 SEC AND UNSP MALIG NEOPLASM OF [place] 09/20/2018 ОЛЬГА FRANCISCO N Ot C79.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 09/20/2018 ОЛЬГА FRANCISCO N Ot E03.9 HYPOTHYROIDISM, UNSPECIFIED 09/20/2018 ОЛЬГА DIANAPAPA N Ot E78.5 HYPERLIPIDEMIA, UNSPECIFIED 09/20/2018 ОЛЬГА DIANAPAPA N Ot I12.9 HYPERTENSIVE CHRONIC KIDNEY DISEASE W ST 09/20/2018 ОЛЬГА DIANAPAPA N Ot I25.10 ATHSCL HEART DISEASE OF [place] CORONARY 09/20/2018 FRANCISCO ROLON N Ot N18.3 CHRONIC KIDNEY DISEASE, STAGE 3 (MODERAT 09/20/2018 FRANCISCO ROLON N Ot Z79.899 OTHER [facility] (CURRENT) DRUG THERAPY 09/20/2018 ОЛЬГА DIANAPAPA N Ot Z85.3 PERSONAL HISTORY OF MALIGNANT NEOPLASM O 09/20/2018 ОЛЬГА DIANAPAPA N Ot Z92.21 PERSONAL HISTORY OF ANTINEOPLASTIC CHEMO 09/20/2018 ОЛЬГА, DIANAPAPA N Ot Z92.3 PERSONAL HISTORY OF IRRADIATION 10/06/2018 ОЛЬГА FRANCISCO N Ot 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 10/06/2018 ОЛЬГА FRANCISCO N Ot C77.3 SEC AND UNSP MALIG NEOPLASM OF [place] 10/06/2018 ОЛЬГА FRANCISCO N Ot C79.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 10/06/2018 ОЛЬГА FRANCISCO N Ot E03.9 HYPOTHYROIDISM, UNSPECIFIED 10/06/2018 FRANCISCO ROLON Tarah Ot E78.5 HYPERLIPIDEMIA, UNSPECIFIED 10/06/2018 ОЛЬГА FRANCISCO Rascon Ot I12.9 HYPERTENSIVE CHRONIC KIDNEY DISEASE W ST 10/06/2018 DIANA ROLONPAPA Rascon Ot I25.10 ATHSCL HEART DISEASE OF [place] CORONARY 10/06/2018 ОЛЬГА DIANAPAPA Tarah Ot N18.3 CHRONIC KIDNEY DISEASE, STAGE 3 (MODERAT 10/06/2018 ОЛЬГА FRANCISCO Rascon Ot Z79.899 OTHER [facility] (CURRENT) DRUG THERAPY 10/06/2018 ОЛЬГА FRANCISCO Rascon Ot Z85.3 PERSONAL HISTORY OF MALIGNANT NEOPLASM O 10/06/2018 ОЛЬГА FRANCISCO Rascon Ot Z92.21 PERSONAL HISTORY OF ANTINEOPLASTIC CHEMO 10/06/2018 DIANA ROLONPAPA Rascon Ot Z92.3 PERSONAL HISTORY OF IRRADIATION 10/11/2018 ROB REYES DO Ot Z01.818 ENCOUNTER FOR OTHER PREPROCEDURAL EXAMIN 10/17/2018 ROB REYES DO Ot Z01.818 ENCOUNTER FOR OTHER PREPROCEDURAL EXAMIN 10/17/2018 ROB REYES DO Ot Z01.818 ENCOUNTER FOR OTHER PREPROCEDURAL EXAMIN 10/20/2018 ROB REYES DO Ot C44. 41 BASAL CELL CARCINOMA OF SKIN OF [place] 10/20/2018 ROB REYSE DO Ot E03. 9 HYPOTHYROIDISM, UNSPECIFIED 10/20/2018 ROB REYES DO Ot E78. 5 HYPERLIPIDEMIA, UNSPECIFIED 10/20/2018 ROB REYES DO Ot G62. 9 POLYNEUROPATHY, UNSPECIFIED 10/20/2018 ROB REYES DO Ot I12. 9 HYPERTENSIVE CHRONIC KIDNEY DISEASE W ST 10/20/2018 ROB REYES DO Ot I25. 10 ATHSCL HEART DISEASE OF [place] CORONARY 10/20/2018 ROB REYES DO Ot I73. 9 PERIPHERAL VASCULAR DISEASE, UNSPECIFIED 10/20/2018 ROB REYES DO Ot K21. 9 GASTRO-ESOPHAGEAL REFLUX DISEASE WITHOUT 10/20/2018 ROB REYES DO Ot L98. 9 DISORDER OF THE SKIN AND SUBCUTANEOUS TI 10/20/2018 ROB REYES DO Ot N18. 3 CHRONIC KIDNEY DISEASE, STAGE 3 (MODERAT 10/20/2018 ROB REYES DO Ot Z79. 01 [facility] (CURRENT) USE OF ANTICOAGULANT 10/20/2018 ROB REYES DO Ot Z79. 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 3 PERSONAL HISTORY OF MALIGNANT NEOPLASM O 10/20/2018 ROB REYES DO Ot Z85.820 PERSONAL HISTORY OF MALIGNANT MELANOMA O 10/20/2018 ROB REYES DO Ot Z95. 1 PRESENCE OF AORTOCORONARY BYPASS GRAFT 10/25/2018 ROB REYES DO Ot C44. 41 BASAL CELL CARCINOMA OF SKIN OF [place] 10/25/2018 ROB REYES DO Ot E03. 9 HYPOTHYROIDISM, UNSPECIFIED 10/25/2018 ROB REYES DO Ot E78. 5 HYPERLIPIDEMIA, UNSPECIFIED 10/25/2018 ROB REYES DO Ot G62. 9 POLYNEUROPATHY, UNSPECIFIED 10/25/2018 ROB REYSE DO Ot I12. 9 HYPERTENSIVE CHRONIC KIDNEY DISEASE W ST 10/25/2018 ROB REYES DO Ot I25. 10 ATHSCL HEART DISEASE OF [place] CORONARY 10/25/2018 ROB REYES DO Ot I73. 9 PERIPHERAL VASCULAR DISEASE, UNSPECIFIED 10/25/2018 ROB REYES DO Ot K21. 9 GASTRO-ESOPHAGEAL REFLUX DISEASE WITHOUT 10/25/2018 ROB REYES DO Ot N18. 3 CHRONIC KIDNEY DISEASE, STAGE 3 (MODERAT 10/25/2018 ROB REYES DO Ot Z79. 01 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) USE OF ANTICOAGULANT 10/25/2018 ROB REYES DO Ot Z79. 82 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) USE OF ASPIRIN 10/25/2018 ROB REYES DO Ot Z79.899 OTHER [facility] (CURRENT) DRUG THERAPY 10/25/2018 ROB REYES DO Ot Z85. 3 PERSONAL HISTORY OF MALIGNANT NEOPLASM O 10/25/2018 ROB REYES DO Ot Z85.820 PERSONAL HISTORY OF MALIGNANT MELANOMA O 10/25/2018 ROB REYES DO Ot Z95. 1 PRESENCE OF AORTOCORONARY BYPASS GRAFT 10/27/2018 ROB REYES DO D Ot C44. 41 BASAL CELL CARCINOMA OF SKIN OF [place] 10/27/2018 ROB REYES DO Ot E03. 9 HYPOTHYROIDISM, UNSPECIFIED 10/27/2018 ROB REYES DO D Ot E78. 5 HYPERLIPIDEMIA, UNSPECIFIED 10/27/2018 REYESROB BERNABE DO D Ot G62. 9 POLYNEUROPATHY, UNSPECIFIED 10/27/2018 ROB REYES DO D Ot I12. 9 HYPERTENSIVE CHRONIC KIDNEY DISEASE W ST 10/27/2018 ROB REYES DO D Ot I25. 10 ATHSCL HEART DISEASE OF [place] CORONARY 10/27/2018 ROB REYES DO D Ot I73. 9 PERIPHERAL VASCULAR DISEASE, UNSPECIFIED 10/27/2018 ROB REYES DO D Ot K21. 9 GASTRO-ESOPHAGEAL REFLUX DISEASE WITHOUT 10/27/2018 ROB REYES DO D Ot N18. 3 CHRONIC KIDNEY DISEASE, STAGE 3 (MODERAT 10/27/2018 ROB REYES DO Ot Z79. 01 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) USE OF ANTICOAGULANT 10/27/2018 ROB REYES DO Ot Z79. 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 3 PERSONAL HISTORY OF MALIGNANT NEOPLASM O 10/27/2018 ROB REYES DO Ot Z85.820 PERSONAL HISTORY OF MALIGNANT MELANOMA O 10/27/2018 ROB REYES DO Ot Z95. 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 12/06/2018 ОЛЬГАFRANCISCO N Ot C77.3 SEC AND UNSP MALIG NEOPLASM OF [place] 12/06/2018 ОЛЬГА BOBAN N Ot C79.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 12/06/2018 ОЛЬГАDIANAAN N Ot E03.9 HYPOTHYROIDISM, UNSPECIFIED 12/06/2018 ОЛЬГА BOBAN N Ot E78.5 HYPERLIPIDEMIA, UNSPECIFIED 12/06/2018 ОЛЬГА, BOBAN N Ot I12.9 HYPERTENSIVE CHRONIC KIDNEY DISEASE W ST 12/06/2018 ОЛЬГА, BOBAN N Ot I25.10 ATHSCL HEART DISEASE OF [place] CORONARY 12/06/2018 ОЛЬГА, BOBAN N Ot N18.3 CHRONIC KIDNEY DISEASE, STAGE 3 (MODERAT 12/06/2018 ОЛЬГА, BOBAN N Ot 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 12/06/2018 ОЛЬГА, BOBAN N Ot Z85.3 PERSONAL HISTORY OF MALIGNANT NEOPLASM O 12/06/2018 ОЛЬГА BOBAN N Ot Z92.21 PERSONAL HISTORY OF ANTINEOPLASTIC CHEMO 12/06/2018 ОЛЬГА, BOBAN N Ot Z92.3 PERSONAL HISTORY OF IRRADIATION 12/07/2018 FRANCISCO ROLON N Ot 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 12/07/2018 FRANCISCO ROLON N Ot C77.3 SEC AND UNSP MALIG NEOPLASM OF [place] 12/07/2018 ОЛЬГАDIANA MAEAN N Ot C79.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 12/07/2018 FRANCISCO ROLON N Ot E03.9 HYPOTHYROIDISM, UNSPECIFIED 12/07/2018 ОЛЬГА BOBAN N Ot E78.5 HYPERLIPIDEMIA, UNSPECIFIED 12/07/2018 ОЛЬГА, BOBAN N Ot I12.9 HYPERTENSIVE CHRONIC KIDNEY DISEASE W ST 12/07/2018 ОЛЬГА BOBAN N Ot I25.10 ATHSCL HEART DISEASE OF [place] CORONARY 12/07/2018 ОЛЬГА BOBAN N Ot N18.3 CHRONIC KIDNEY DISEASE, STAGE 3 (MODERAT 12/07/2018 ОЛЬГА, BOBAN N Ot 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 12/07/2018 ОЛЬГА, BOBAN N Ot Z85.3 PERSONAL HISTORY OF MALIGNANT NEOPLASM O 12/07/2018 ОЛЬГА BOBAN N Ot Z92.21 PERSONAL HISTORY OF ANTINEOPLASTIC CHEMO 12/07/2018 DIANA ROLONAN N Ot Z92.3 PERSONAL HISTORY OF IRRADIATION 12/12/2018 FRANCISCO ROLON N Ot 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 12/12/2018 FRANCISCO ROLON N Ot C77.3 SEC AND UNSP MALIG NEOPLASM OF [place] 12/12/2018 ОЛЬГА DIANAAN N Ot C79.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 12/12/2018 ОЛЬГАFRANCISCO N Ot E03.9 HYPOTHYROIDISM, UNSPECIFIED 12/12/2018 ОЛЬГА, BOBAN N Ot E78.5 HYPERLIPIDEMIA, UNSPECIFIED 12/12/2018 ОЛЬГА, BOBAN N Ot I12.9 HYPERTENSIVE CHRONIC KIDNEY DISEASE W ST 12/12/2018 ОЛЬГА BOBAN N Ot I25.10 ATHSCL HEART DISEASE OF [place] CORONARY 12/12/2018 ОЛЬГА BOBAN N Ot N18.3 CHRONIC KIDNEY DISEASE, STAGE 3 (MODERAT 12/12/2018 ОЛЬГА BOBAN N Ot Z79.899 OTHER [facility] (CURRENT) DRUG THERAPY 12/12/2018 DIANA ROLONAN N Ot Z85.3 PERSONAL HISTORY OF MALIGNANT NEOPLASM O 12/12/2018 ОЛЬГАFRANCISCO MAE N Ot Z92.21 PERSONAL HISTORY OF ANTINEOPLASTIC CHEMO 12/12/2018 FRANCISCO ROLON N Ot Z92.3 PERSONAL HISTORY OF IRRADIATION 01/25/2019 FRANCISCO ROLON N Ot 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 01/25/2019 FRANCISCO ROLON N Ot C77.3 SEC AND UNSP MALIG NEOPLASM OF [place] 01/25/2019 ОЛЬГАFRANCISCO N Ot C79.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 01/25/2019 ОЛЬГА BOBAN N Ot E03.9 HYPOTHYROIDISM, UNSPECIFIED 01/25/2019 ОЛЬГА, BOBAN N Ot E78.5 HYPERLIPIDEMIA, UNSPECIFIED 01/25/2019 ОЛЬГА, BOBAN N Ot I12.9 HYPERTENSIVE CHRONIC KIDNEY DISEASE W ST 01/25/2019 ОЛЬГА BOBAN N Ot I25.10 ATHSCL HEART DISEASE OF [place] CORONARY 01/25/2019 ОЛЬГА BOBAN N Ot N18.3 CHRONIC KIDNEY DISEASE, STAGE 3 (MODERAT 01/25/2019 ОЛЬГА, BOBAN N Ot Z79.899 OTHER [facility] (CURRENT) DRUG THERAPY 01/25/2019 FRANCISCO ROLON N Ot Z85.3 PERSONAL HISTORY OF MALIGNANT NEOPLASM O 01/25/2019 FRANCISCO ROLON N Ot Z92.21 PERSONAL HISTORY OF ANTINEOPLASTIC CHEMO 01/25/2019 FRANCISCO ROLON N Ot Z92.3 PERSONAL HISTORY OF IRRADIATION 02/13/2019 FRANCISCO ROLON Tarah Ot 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 02/13/2019 ОЛЬГА DIANAPAPA Tarah Ot C77.3 SEC AND UNSP MALIG NEOPLASM OF [place] 02/13/2019 FRANCISCO ROLON Tarah Ot C79.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 02/13/2019 FRANCISCO ROLON Tarah Ot E03.9 HYPOTHYROIDISM, UNSPECIFIED 02/13/2019 FRANCISCO ROLON Tarah Ot E78.5 HYPERLIPIDEMIA, UNSPECIFIED 02/13/2019 FRANCISCO ROLON Tarah Ot I12.9 HYPERTENSIVE CHRONIC KIDNEY DISEASE W ST 02/13/2019 FRANCISCO ROLON Tarah Ot I25.10 ATHSCL HEART DISEASE OF [place] CORONARY 02/13/2019 FRANCISCO ROLON Tarah Ot N18.3 CHRONIC KIDNEY DISEASE, STAGE 3 (MODERAT 02/13/2019 FRANCISCO ROLON Tarah Ot Z79.899 OTHER [facility] (CURRENT) DRUG THERAPY 02/13/2019 FRANCISCO ROLON Tarah Ot Z85.3 PERSONAL HISTORY OF MALIGNANT NEOPLASM O 02/13/2019 FRANCISCO ROLON Tarah Ot Z92.21 PERSONAL HISTORY OF ANTINEOPLASTIC CHEMO 02/13/2019 FRANCISCO ROLON Tarah Ot Z92.3 PERSONAL HISTORY OF IRRADIATION 02/21/2019 ОЛЬГА FRANCISCO Rascon Ot 172.5 MALIG MELANOMA TRUNK 02/21/2019 EUGENIA YI LATENT PRINT EXAMINER Ot 172.5 MALIG MELANOMA TRUNK 02/21/2019 EUGENIA YI LATENT PRINT EXAMINER Ot 724.2 LUMBAGO 02/21/2019 EUGENIA YI LATENT PRINT EXAMINER Ot 781.2 ABNORMALITY OF GAIT 02/21/2019 EUGENIA YI LATENT PRINT EXAMINER Ot 784.0 HEADACHE 02/21/2019 EUGENIA YI LATENT PRINT EXAMINER Ot V10.3 HX OF BREAST MALIGNANCY 02/21/2019 EUGENIA YI LATENT PRINT EXAMINER Ot V15.3 HX OF IRRADIATION 02/21/2019 EUGENIA YI LATENT PRINT EXAMINER Ot V58.69 OTH MED,LT,CURRENT USE 02/21/2019 EUGENIA YI LATENT PRINT EXAMINER Ot V87.41 PERSONAL HISTORY OF ANTINEOPLASTIC CHEMO 02/21/2019 EUGENIA YI LATENT PRINT EXAMINER Ot 172.9 MALIG MELANOMA SKIN NOS 02/21/2019 EUGENIA YI LATENT PRINT EXAMINER Ot 781.2 ABNORMALITY OF GAIT 02/21/2019 EUGENIA YI LATENT PRINT EXAMINER Ot 784.0 HEADACHE 02/21/2019 EUGENIA YI LATENT PRINT EXAMINER Ot 794.9 ABN FUNCTION STUDY NEC 02/21/2019 EUGENIA YI LATENT PRINT EXAMINER Ot V76.12 OTH SCREEN MAMMO-MALIGN NEOPLASM OF JOSE 02/21/2019 Ot 172.9 DAVID G MELANOMA SKIN NOS 02/21/2019 Ot V76.12 OTH SCREEN MAMMO- MALIGN NEOPLASM OF JOSE 02/21/2019 FRANCISCO ROLON Ot 172.9 MALIG MELANOMA SKIN NOS 02/21/2019 FRANCISCO ROLON Ot V10.3 HX OF BREAST MALIGNANCY 02/21/2019 ANGY HOFFMAN, KARLA Horowitz Ot 719.4 7 JOINT PAIN-ANKLE 02/21/2019 EUGENIA YI LATENT PRINT EXAMINER Ot 172.5 MALIG MELANOMA TRUNK 02/21/2019 EUGENIA YI LATENT PRINT EXAMINER Ot V10.3 HX OF BREAST MALIGNANCY 02/21/2019 EUGENIA YI LATENT PRINT EXAMINER Ot V15.3 HX OF IRRADIATION 02/21/2019 EUGENIA YI LATENT PRINT EXAMINER Ot V58.69 OTH MED,LT,CURRENT USE 02/21/2019 EUGENIA YI LATENT PRINT EXAMINER Ot V87.41 PERSONAL HISTORY OF ANTINEOPLASTIC CHEMO 02/21/2019 EUGENIA YI LATENT PRINT EXAMINER Ot 172.9 MALIG MELANOMA SKIN NOS 02/21/2019 EUGENIA YI LATENT PRINT EXAMINER Ot 174.9 MALIGN NEOPL BREAST NOS 02/21/2019 EUGENIA YI LATENT PRINT EXAMINER Ot 724.5 BACKACHE NOS 02/21/2019 EUGENIA YI S LATENT PRINT EXAMINER Ot 172.9 MALIG MELANOMA SKIN NOS 02/21/2019 EUGENIA YI S LATENT PRINT EXAMINER Ot 174.9 MALIGN NEOPL BREAST NOS 02/21/2019 EUGENIA YI LATENT PRINT EXAMINER Ot 724.5 BACKACHE NOS 02/21/2019 FRANCISCO ROLON N Ot 172.9 MALIG MELANOMA SKIN NOS 02/21/2019 FRANCISCO ROLON N Ot 786.6 CHEST SWELLING/MASS/LUMP 02/21/2019 KASSIDY EUGENIA Rito LATENT PRINT EXAMINER Ot 172.9 MALIG MELANOMA SKIN NOS 02/21/2019 JUANITO YITOD Veras LATENT PRINT EXAMINER Ot V58.69 OTH MED,LT,CURRENT USE 02/21/2019 EUGENIA YI LATENT PRINT EXAMINER Ot V58.83 ENCOUNTER FOR THERAPEUTIC DRUG MONITORIN 02/21/2019 JUANITO YITOD Rito LATENT PRINT EXAMINER Ot 172.5 MALIG MELANOMA TRUNK 02/21/2019 JUANITO YITOD Rito LATENT PRINT EXAMINER Ot V10.3 HX OF BREAST MALIGNANCY 02/21/2019 EUGENIA YI LATENT PRINT EXAMINER Ot V15.3 HX OF IRRADIATION 02/21/2019 EUGENIA YI LATENT PRINT EXAMINER Ot V58.69 OTH MED,LT,CURRENT USE 02/21/2019 EUGENIA YI LATENT PRINT EXAMINER Ot V87.41 PERSONAL HISTORY OF ANTINEOPLASTIC CHEMO 02/21/2019 EUGENIA YI LATENT PRINT EXAMINER Ot 172.5 MALIG MELANOMA TRUNK 02/21/2019 EUGENIA YI LATENT PRINT EXAMINER Ot 199.1 MALIGNANT NEOPLASM NOS 02/21/2019 EUGENIA YI LATENT PRINT EXAMINER Ot 786.2 COUGH 02/21/2019 EUGENIA YI LATENT PRINT EXAMINER Ot V10.3 HX OF BREAST MALIGNANCY 02/21/2019 EUGENIA YI LATENT PRINT EXAMINER Ot V15.3 HX OF IRRADIATION 02/21/2019 EUEGNIA YI LATENT PRINT EXAMINER Ot V58.69 OTH MED,LT,CURRENT USE 02/21/2019 EUGENIA YI LATENT PRINT EXAMINER Ot V87.41 PERSONAL HISTORY OF ANTINEOPLASTIC CHEMO 02/21/2019 EUGENIA YI LATENT PRINT EXAMINER Ot 172.5 MALIG MELANOMA TRUNK 02/21/2019 EUGENIA YI LATENT PRINT EXAMINER Ot 199.1 MALIGNANT NEOPLASM NOS 02/21/2019 EUGENIA YI LATENT PRINT EXAMINER Ot 511.9 PLEURAL EFFUSION NOS 02/21/2019 EUGENIA YI S LATENT PRINT EXAMINER Ot V10.3 HX OF BREAST MALIGNANCY 02/21/2019 EUGENIA YI S LATENT PRINT EXAMINER Ot V15.3 HX OF IRRADIATION 02/21/2019 EUGENIA YI S LATENT PRINT EXAMINER Ot V58.69 OTH MED,LT,CURRENT USE 02/21/2019 JUANITO YITOD Rito LATENT PRINT EXAMINER Ot V87.41 PERSONAL HISTORY OF ANTINEOPLASTIC CHEMO 02/21/2019 EUGENIA YI LATENT PRINT EXAMINER Ot 780.60 FEVER, UNSPECIFIED 02/21/2019 EUGENIA YI S LATENT PRINT EXAMINER Ot 786.2 COUGH 02/21/2019 EUGENIA YI LATENT PRINT EXAMINER Ot 172.5 MALIG MELANOMA TRUNK 02/21/2019 JUANTIO YITOD Rito LATENT PRINT EXAMINER Ot 199.1 MALIGNANT NEOPLASM NOS 02/21/2019 JUANITO YITOD S LATENT PRINT EXAMINER Ot V10.3 HX OF BREAST MALIGNANCY 02/21/2019 JUANITO YITOD Rito LATENT PRINT EXAMINER Ot V15.3 HX OF IRRADIATION 02/21/2019 EUGENIA YI LATENT PRINT EXAMINER Ot V58.69 OTH MED,LT,CURRENT USE 02/21/2019 EUGENIA YI LATENT PRINT EXAMINER Ot V87.41 PERSONAL HISTORY OF ANTINEOPLASTIC CHEMO 02/21/2019 EUGENIA YI LATENT PRINT EXAMINER Ot 414.00 CORON ATHEROSCLER NOS TYPE VESSEL, NATIV 02/21/2019 EUGENIA YI LATENT PRINT EXAMINER Ot V58.69 OTH MED,LT,CURRENT USE 02/21/2019 EUGENIA YI LATENT PRINT EXAMINER Ot V58.83 ENCOUNTER FOR THERAPEUTIC DRUG MONITORIN 02/21/2019 KARLA TRAVIS MD Ot 272.4 HYPERLIPIDEMIA NEC/NOS 02/21/2019 KARLA TRAVIS MD Ot 401.9 HYPERTENSION NOS 02/21/2019 KARLA TRAVIS MD Ot V58.6 9 OTH MED,LT,CURRENT USE 02/21/2019 EUGENIA YI LATENT PRINT EXAMINER Ot 172.5 MALIG MELANOMA TRUNK 02/21/2019 EUGENIA YI LATENT PRINT EXAMINER Ot 199.1 MALIGNANT NEOPLASM NOS 02/21/2019 EUGENIA YI LATENT PRINT EXAMINER Ot 511.9 PLEURAL EFFUSION NOS 02/21/2019 EUGENIA YI LATENT PRINT EXAMINER Ot V10.3 HX OF BREAST MALIGNANCY 02/21/2019 EUGENIA YI LATENT PRINT EXAMINER Ot V15.3 HX OF IRRADIATION 02/21/2019 EUGENIA YI LATENT PRINT EXAMINER Ot V58.69 OTH MED,LT,CURRENT USE 02/21/2019 EUGENIA YI LATENT PRINT EXAMINER Ot V87.41 PERSONAL HISTORY OF ANTINEOPLASTIC CHEMO 02/21/2019 EUGENIA YI S LATENT PRINT EXAMINER Ot 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, UNSPECIFIED 02/21/2019 Ot C43.9 DAVID GNANT MELANOMA OF SKIN, UNSPECIFIED 02/21/2019 JUANITO YITOD Veras LATENT PRINT EXAMINER Ot 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, UNSPECIFIED 02/21/2019 JUANITO YITOD Veras LATENT PRINT EXAMINER Ot 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 02/21/2019 EUGENIA YI LATENT PRINT EXAMINER Ot C43.59 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 02/21/2019 YI EUGENIA Veras LATENT PRINT EXAMINER Ot Z79.899 OTHER [facility] (CURRENT) DRUG THERAPY 02/21/2019 KASSIDY EUGENIA Veras LATENT PRINT EXAMINER Ot Z85.3 PERSONAL HISTORY OF MALIGNANT NEOPLASM O 02/21/2019 EUGENIA YI LATENT PRINT EXAMINER Ot Z92.21 PERSONAL HISTORY OF ANTINEOPLASTIC CHEMO 02/21/2019 JUANITO YITOD Rito LATENT PRINT EXAMINER Ot Z92.3 PERSONAL HISTORY OF IRRADIATION 02/21/2019 EUGENIA YI LATENT PRINT EXAMINER Ot C43.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 02/21/2019 KASSIDY EUGENIA Veras LATENT PRINT EXAMINER Ot Z79.899 OTHER [facility] (CURRENT) DRUG THERAPY 02/21/2019 JUANITO YITOD Veras LATENT PRINT EXAMINER Ot Z85.3 PERSONAL HISTORY OF MALIGNANT NEOPLASM O 02/21/2019 EUGENIA YI LATENT PRINT EXAMINER Ot Z92.21 PERSONAL HISTORY OF ANTINEOPLASTIC CHEMO 02/21/2019 JUANITO YITOD Rito LATENT PRINT EXAMINER Ot Z92.3 PERSONAL HISTORY OF IRRADIATION 02/21/2019 EUGENIA YI LATENT PRINT EXAMINER Ot 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 02/21/2019 EUGENIA YI Rito LATENT PRINT EXAMINER Ot Z79.899 OTHER [facility] (CURRENT) DRUG THERAPY 02/21/2019 JUANITO YITOD Veras LATENT PRINT EXAMINER Ot Z85.3 PERSONAL HISTORY OF MALIGNANT NEOPLASM O 02/21/2019 JUANITO YITOD S LATENT PRINT EXAMINER Ot Z92.3 PERSONAL HISTORY OF IRRADIATION 02/21/2019 RIKA WYNNE MD Ot L98.9 DISORDER OF THE SKIN AND SUBCUTANEOUS TI 02/21/2019 RIKA WYNNE MD Ot Z01.818 ENCOUNTER FOR OTHER PREPROCEDURAL EXAMIN 02/21/2019 EUGENIA YI LATENT PRINT EXAMINER Ot C43.59 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 02/21/2019 YI EUGENIA Veras LATENT PRINT EXAMINER Ot C43.59 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 02/21/2019 EUGENIA YI LATENT PRINT EXAMINER Ot C77.3 SEC AND UNSP MALIG NEOPLASM OF AXILLA AN 02/21/2019 EUGENIA YI LATENT PRINT EXAMINER Ot 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 02/21/2019 EUGENIA YI LATENT PRINT EXAMINER Ot Z85.3 PERSONAL HISTORY OF MALIGNANT NEOPLASM O 02/21/2019 JUANITO YITOD S LATENT PRINT EXAMINER Ot Z92.21 PERSONAL HISTORY OF ANTINEOPLASTIC CHEMO 02/21/2019 EUGENIA YI S LATENT PRINT EXAMINER Ot Z92.3 PERSONAL HISTORY OF IRRADIATION 02/21/2019 EUGENIA YI LATENT PRINT EXAMINER Ot C43.59 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 02/21/2019 EUGENIA YI LATENT PRINT EXAMINER Ot C77.3 SEC AND UNSP MALIG NEOPLASM OF AXILLA AN 02/21/2019 EUGENIA YI LATENT PRINT EXAMINER Ot Z79.899 OTHER [facility] (CURRENT) DRUG THERAPY 02/21/2019 EUGENIA YI LATENT PRINT EXAMINER Ot Z85.3 PERSONAL HISTORY OF MALIGNANT NEOPLASM O 02/21/2019 EUGENIA YI S LATENT PRINT EXAMINER Ot Z92.21 PERSONAL HISTORY OF ANTINEOPLASTIC CHEMO 02/21/2019 EUGENIA YI S LATENT PRINT EXAMINER Ot Z92.3 PERSONAL HISTORY OF IRRADIATION 02/21/2019 EUGENIA YI LATENT PRINT EXAMINER Ot C43.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 02/21/2019 EUGENIA YI LATENT PRINT EXAMINER Ot C43.59 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 02/21/2019 EUGENIA YI LATENT PRINT EXAMINER Ot C77.3 SEC AND UNSP MALIG NEOPLASM OF AXILLA AN 02/21/2019 EUGENIA YI S LATENT PRINT EXAMINER Ot 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 02/21/2019 EUGENIA YI S LATENT PRINT EXAMINER Ot Z85.3 PERSONAL HISTORY OF MALIGNANT NEOPLASM O 02/21/2019 EUGENIA YI S LATENT PRINT EXAMINER Ot Z92.21 PERSONAL HISTORY OF ANTINEOPLASTIC CHEMO 02/21/2019 EUGENIA YI S LATENT PRINT EXAMINER Ot Z92.3 PERSONAL HISTORY OF IRRADIATION 02/21/2019 EUGENIA YI S LATENT PRINT EXAMINER Ot C43.59 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 02/21/2019 JUANITO YITOD Veras LATENT PRINT EXAMINER Ot C77.3 SEC AND UNSP MALIG NEOPLASM OF AXILLA AN 02/21/2019 YIJUANITOTOD Veras LATENT PRINT EXAMINER Ot Z79.899 OTHER [facility] (CURRENT) DRUG THERAPY 02/21/2019 JUANITO YITOD Rito LATENT PRINT EXAMINER Ot Z85.3 PERSONAL HISTORY OF MALIGNANT NEOPLASM O 02/21/2019 JUANITO YITOD Rito LATENT PRINT EXAMINER Ot Z92.21 PERSONAL HISTORY OF ANTINEOPLASTIC CHEMO 02/21/2019 JUANITO YITOD Rito LATENT PRINT EXAMINER Ot Z92.3 PERSONAL HISTORY OF IRRADIATION 02/21/2019 EUGENIA YI LATENT PRINT EXAMINER Ot 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 02/21/2019 EUGENIA YI LATENT PRINT EXAMINER Ot C77.3 SEC AND UNSP MALIG NEOPLASM OF AXILLA AN 02/21/2019 EUGENIA YI LATENT PRINT EXAMINER Ot 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 02/21/2019 EUGENIA YI LATENT PRINT EXAMINER Ot Z85.3 PERSONAL HISTORY OF MALIGNANT NEOPLASM O 02/21/2019 JUANITO YITOD S LATENT PRINT EXAMINER Ot Z92.21 PERSONAL HISTORY OF ANTINEOPLASTIC CHEMO 02/21/2019 EUGENIA YI S LATENT PRINT EXAMINER Ot Z92.3 PERSONAL HISTORY OF IRRADIATION 02/21/2019 EUGENIA YI LATENT PRINT EXAMINER Ot 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 02/21/2019 EUGENIA YIP Ot C77.3 SEC AND UNSP MALIG NEOPLASM OF AXILL[place] AN 02/21/2019 EUGENIA YI LATENT PRINT EXAMINER Ot Z79.899 OTHER [facility] (CURRENT) DRUG THERAPY 02/21/2019 JUANITO YITOD S LATENT PRINT EXAMINER Ot Z85.3 PERSONAL HISTORY OF MALIGNANT NEOPLASM O 02/21/2019 EUGENIA YI S LATENT PRINT EXAMINER Ot Z92.21 PERSONAL HISTORY OF ANTINEOPLASTIC CHEMO 02/21/2019 EUGENIA YI S LATENT PRINT EXAMINER Ot Z92.3 PERSONAL HISTORY OF IRRADIATION 02/21/2019 EUGENIA YI LATENT PRINT EXAMINER Ot M79.89 OTHER SPECIFIED SOFT TISSUE DISORDERS 02/21/2019 EUGENIA YI LATENT PRINT EXAMINER Ot 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 02/21/2019 EUGENIA YI LATENT PRINT EXAMINER Ot C77.3 SEC AND UNSP MALIG NEOPLASM OF AXILLA AN 02/21/2019 EUGENIA YI LATENT PRINT EXAMINER Ot 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 02/21/2019 EUGENIA YI LATENT PRINT EXAMINER Ot Z85.3 PERSONAL HISTORY OF MALIGNANT NEOPLASM O 02/21/2019 EUGENIA YI LATENT PRINT EXAMINER Ot Z92.21 PERSONAL HISTORY OF ANTINEOPLASTIC CHEMO 02/21/2019 EUGENIA YI LATENT PRINT EXAMINER Ot Z92.3 PERSONAL HISTORY OF IRRADIATION 02/21/2019 KARLA TRAVIS MD Ot 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, UNSPECIFIED 02/21/2019 KARLA TRAVIS MD Ot E78.4 OTHER HYPERLIPIDEMIA 02/21/2019 KARLA TRAVIS MD Ot I10 ESSENTIAL (PRIMARY) HYPERTENSION 02/21/2019 KARLA TRAVIS MD Ot Z79.8 99 OTHER [facility] (CURRENT) DRUG THERAPY 02/21/2019 VERNON HOFFMAN [facility], ALI FACP CCDS Ot 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 02/21/2019 VERNON HOFFMAN [facility], ALI FACP CCDS Ot E78.4 OTHER HYPERLIPIDEMIA 02/21/2019 VERNON HOFFMAN [facility], ALI FACP CCDS Ot I25.10 ATHSCL HEART DISEASE OF [place] CORONARY 02/21/2019 VERNON HOFFMAN [facility], ALI FACP CCDS Ot I65.23 OCCLUSION AND STENOSIS OF BILATERAL [place] 02/21/2019 VERNON HOFFMAN [facility], ALI FACP CCDS Ot N18.3 CHRONIC KIDNEY DISEASE, STAGE 3 (MODERAT 02/21/2019 EUGENIA YI LATENT PRINT EXAMINER Ot 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 02/21/2019 EUGENIA YIP Ot C77.3 SEC AND UNSP MALIG NEOPLASM OF AXILL[place] AN 02/21/2019 EUGENIA YI LATENT PRINT EXAMINER Ot Z79.899 OTHER [facility] (CURRENT) DRUG THERAPY 02/21/2019 EUGENIA YI LATENT PRINT EXAMINER Ot Z85.3 PERSONAL HISTORY OF MALIGNANT NEOPLASM O 02/21/2019 EUGENIA YI LATENT PRINT EXAMINER Ot Z92.21 PERSONAL HISTORY OF ANTINEOPLASTIC CHEMO 02/21/2019 EUGENIA YI LATENT PRINT EXAMINER Ot Z92.3 PERSONAL HISTORY OF IRRADIATION 02/21/2019 EUGENIA YI LATENT PRINT EXAMINER Ot 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 02/21/2019 YIEUGENIA Rito LATENT PRINT EXAMINER Ot C77.3 SEC AND UNSP MALIG NEOPLASM OF AXILLA AN 02/21/2019 FRANCISCO ROLON N Ot C77.3 SEC AND UNSP MALIG NEOPLASM OF AXILLA AN 02/21/2019 ОЛЬГАFRANCISCO Ot M62.9 DISORDER OF MUSCLE, UNSPECIFIED 02/21/2019 ОЛЬГАFRANCISCO Ot R94.8 ABNORMAL RESULTS OF FUNCTION STUDIES OF 02/21/2019 KARLA TRAVIS MD Ot R53.8 3 OTHER FATIGUE 02/21/2019 EUGENIA YI S LATENT PRINT EXAMINER Ot E80.6 OTHER DISORDERS OF BILIRUBIN METABOLISM 02/21/2019 EUGENIA YI S LATENT PRINT EXAMINER Ot 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 02/21/2019 EUGENIA YI S LATENT PRINT EXAMINER Ot E80.6 OTHER DISORDERS OF BILIRUBIN METABOLISM 02/21/2019 ОЛЬГАFRANCISCO N Ot 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 02/21/2019 EUGENIA YI LATENT PRINT EXAMINER Ot N 63 UNSPECIFIED LUMP IN BREAST 02/21/2019 EUGENIA YI S LATENT PRINT EXAMINER Ot Z85.3 PERSONAL HISTORY OF MALIGNANT NEOPLASM O 02/21/2019 EUGENIA YI S LATENT PRINT EXAMINER Ot 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 02/21/2019 EUGENIA YI S LATENT PRINT EXAMINER Ot R26.9 UNSPECIFIED ABNORMALITIES OF GAIT AND MO 02/21/2019 EUGENIA YI S LATENT PRINT EXAMINER Ot R 42 DIZZINESS AND GIDDINESS 02/21/2019 EUGENIA YI S LATENT PRINT EXAMINER Ot R 51 HEADACHE 02/21/2019 KARLA TRAVIS MD Ot C43.5 9 MALIGNANT MELANOMA OF OTHER PART OF TRUN 02/21/2019 KARLA TRAVIS MD Ot R42 DIZZINESS AND GIDDINESS 02/21/2019 KARLA TRAVIS MD Ot Z85.3 PERSONAL HISTORY OF MALIGNANT NEOPLASM O 02/21/2019 KARLA TRAVIS MD Ot E03.9 HYPOTHYROIDISM, UNSPECIFIED 02/21/2019 EUGENIA YI S LATENT PRINT EXAMINER Ot 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 02/21/2019 KARLA TRAVIS MD Ot E78.5 HYPERLIPIDEMIA, UNSPECIFIED 02/21/2019 VERNON HOFFMAN [facility], ALI FACP CCDS Ot E78.4 OTHER HYPERLIPIDEMIA 02/21/2019 VERNON HOFFMAN [facility], ALI FACP CCDS Ot I10 ESSENTIAL (PRIMARY) HYPERTENSION 02/21/2019 VERNON [facility], ALI FACP CCDS Ot I25.10 ATHSCL HEART DISEASE OF [place] CORONARY 02/21/2019 VERNON [facility], ALI FACP CCDS Ot I65.23 OCCLUSION AND STENOSIS OF BILATERAL [place] 02/21/2019 VERNON [facility], ALI FACP CCDS Ot R06.09 OTHER FORMS OF DYSPNEA 02/21/2019 [facility], ALI FACP CCDS Ot R53.1 WEAKNESS 02/21/2019 VERNON MD [facility], ALI FACP CCDS Ot E78.4 OTHER HYPERLIPIDEMIA 02/21/2019 VERNON [facility], ALI FACP CCDS Ot I10 ESSENTIAL (PRIMARY) HYPERTENSION 02/21/2019 [facility], ALI FACP CCDS Ot I25.10 ATHSCL HEART DISEASE OF [place] CORONARY 02/21/2019 VERNON MD [facility], ALI FACP CCDS Ot I65.23 OCCLUSION AND STENOSIS OF BIL[place]AL [place] 02/21/2019 VERNON [facility], ALI FACP CCDS Ot R06.09 OTHER FORMS OF DYSPNEA 02/21/2019 VERNON HOFFMAN [facility], ALI FACP CCDS Ot R53.1 WEAKNESS 02/21/2019 EUGENIA YI LATENT PRINT EXAMINER Ot 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3 SEC AND UNSP MALIG NEOPLASM OF AX[place] AN 02/21/2019 EUGENIA YI Ot Z85.820 PERSONAL HISTORY OF MALIGNANT MELANOMA O 02/21/2019 ANGY HOFFMAN, KARLA Horowitz Ot 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, UNSP WITHOUT THYROTOXIC 02/21/2019 KARLA TRAVIS MD Ot E78.4 OTHER HYPERLIPIDEMIA 02/21/2019 KARLA TRAVIS MD Ot I10 ESSENTIAL (PRIMARY) HYPERTENSION 02/21/2019 GORDON WEATHERS MD Ot 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 02/21/2019 GORDON WEATHERS MD Ot C50.919 MALIGNANT NEOPLASM OF UNSP SITE OF UNSPE 02/21/2019 GORDON WEATHERS MD Ot R10.31 RIGHT LOWER QUADRANT PAIN 02/21/2019 GORDON WEATHERS MD Ot R91.1 SOLITARY PULMONARY NODULE 02/21/2019 DARRYL POPE MD Ot H93.3X9 DISORDERS OF UNSPECIFIED ACOUSTIC NERVE 02/21/2019 DARRYL POPE MD Ot I63.89 OTHER CEREBRAL INFARCTION 02/21/2019 DARRYL POPE MD Ot Z01.812 ENCOUNTER FOR PREPROCEDURAL LABORATORY E 02/21/2019 DARRYL POPE MD Ot Z85.3 PERSONAL HISTORY OF MALIGNANT NEOPLASM O 02/21/2019 DARRYL POPE MD Ot Z85.820 PERSONAL HISTORY OF MALIGNANT MELANOMA O 02/21/2019 EUGENIA YI Ot 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 02/21/2019 EUGENIA YI Ot C77.3 SEC AND UNSP MALIG NEOPLASM OF [place] AN 02/21/2019 EUGENAI YI Ot L98.9 DISORDER OF THE SKIN AND SUBCUTANEOUS TI 02/21/2019 EUGENIA YI Ot R91.8 OTHER NONSPECIFIC ABNORMAL FINDING OF JEAN 02/21/2019 EUGENIA YI Ot Z01.89 ENCOUNTER FOR OTHER SPECIFIED SPECIAL EX 02/21/2019 FRANCISCO ROLON Ot 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 02/21/2019 FRANCISCO ROLON Ot C77.3 SEC AND UNSP MALIG NEOPLASM OF [place] 02/21/2019 FRANCISCO ROLON Ot C79.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 02/21/2019 FRANCISCO ROLON Ot E03.9 HYPOTHYROIDISM, UNSPECIFIED 02/21/2019 FRANCISCO ROLON Ot E78.5 HYPERLIPIDEMIA, UNSPECIFIED 02/21/2019 FRANCISCO ROLON Ot I12.9 HYPERTENSIVE CHRONIC KIDNEY DISEASE W ST 02/21/2019 FRANCISCO ROLON Ot I25.10 ATHSCL HEART DISEASE OF [place] CORONARY 02/21/2019 FRANCISCO ROLON Ot N18.3 CHRONIC KIDNEY DISEASE, STAGE 3 (MODERAT 02/21/2019 FRANCISCO ROLON Ot 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 02/21/2019 FRANCISCO ROLON Ot Z85.3 PERSONAL HISTORY OF MALIGNANT NEOPLASM O 02/21/2019 FRANCISCO ROLON Ot Z92.21 PERSONAL HISTORY OF ANTINEOPLASTIC CHEMO 02/21/2019 FRANCISCO ROLON Ot Z92.3 PERSONAL HISTORY OF IRRADIATION 02/23/2019 ANGY HOFFMAN, KARLA Horowitz Ot Z01.8 9 ENCOUNTER FOR OTHER SPECIFIED SPECIAL EX 03/27/2019 ROB REYES DO Ot Z01.818 ENCOUNTER FOR OTHER PREPROCEDURAL EXAMIN 03/29/2019 ROB REYES DO Ot Z01.818 ENCOUNTER FOR OTHER PREPROCEDURAL EXAMIN 03/29/2019 EUGENIA YIP Ot 172.5 MALIG MELANOMA TRUNK 03/29/2019 EUGENIA YIP Ot 724.2 LUMBAGO 03/29/2019 EUGENIA YIP Ot 781.2 ABNORMALITY OF GAIT 03/29/2019 EUGENIA YI LATENT PRINT EXAMINER Ot 784.0 HEADACHE 03/29/2019 EUGENIA YI LATENT PRINT EXAMINER Ot V10.3 HX OF BREAST MALIGNANCY 03/29/2019 EUGENIA YI LATENT PRINT EXAMINER Ot V15.3 HX OF IRRADIATION 03/29/2019 EUGENIA YIP Ot V58.69 OT MED,LT,CURRENT USE 03/29/2019 EUGENIA YI LATENT PRINT EXAMINER Ot V87.41 PERSONAL HISTORY OF ANTINEOPLASTIC CHEMO 03/29/2019 EUGENIA YI LATENT PRINT EXAMINER Ot 172.9 MALIG MELANOMA SKIN NOS 03/29/2019 EUGENIA YI LATENT PRINT EXAMINER Ot 781.2 ABNORMALITY OF GAIT 03/29/2019 EUGENIA YI LATENT PRINT EXAMINER Ot 784.0 HEADACHE 03/29/2019 EUGENIA YI LATENT PRINT EXAMINER Ot 794.9 ABN FUNCTION STUDY NEC 03/29/2019 EUGENIA YI LATENT PRINT EXAMINER Ot V76.12 OTH SCREEN MAMMO-MALIGN NEOPLASM OF JOSE 03/29/2019 Ot 172.9 DAVID G MELANOMA SKIN NOS 03/29/2019 Ot V76.12 OTH SCREEN MAMMO- MALIGN NEOPLASM OF JOSE 03/29/2019 FRANCISCO ROLON N Ot 172.9 MALIG MELANOMA SKIN NOS 03/29/2019 FRANCISCO ROLON N Ot V10.3 HX OF BREAST MALIGNANCY 03/29/2019 ANGY HOFFMAN, KARLA Horowitz Ot 719.4 7 JOINT PAIN-ANKLE 03/29/2019 EUGENIA YI LATENT PRINT EXAMINER Ot 172.5 MALIG MELANOMA TRUNK 03/29/2019 EUGENIA YI LATENT PRINT EXAMINER Ot V10.3 HX OF BREAST MALIGNANCY 03/29/2019 EUGENIA YI LATENT PRINT EXAMINER Ot V15.3 HX OF IRRADIATION 03/29/2019 EUGENIA YI LATENT PRINT EXAMINER Ot V58.69 OTH MED,LT,CURRENT USE 03/29/2019 EUGENIA YI LATENT PRINT EXAMINER Ot V87.41 PERSONAL HISTORY OF ANTINEOPLASTIC CHEMO 03/29/2019 EUGENIA YI LATENT PRINT EXAMINER Ot 172.9 MALIG MELANOMA SKIN NOS 03/29/2019 EUGENIA YI LATENT PRINT EXAMINER Ot 174.9 MALIGN NEOPL BREAST NOS 03/29/2019 EUGENIA YI LATENT PRINT EXAMINER Ot 724.5 BACKACHE NOS 03/29/2019 EUGENIA YI LATENT PRINT EXAMINER Ot 172.9 MALIG MELANOMA SKIN NOS 03/29/2019 EUGENIA YI S LATENT PRINT EXAMINER Ot 174.9 MALIGN NEOPL BREAST NOS 03/29/2019 EUGENIA YI LATENT PRINT EXAMINER Ot 724.5 BACKACHE NOS 03/29/2019 FRANCISCO ROLON N Ot 172.9 MALIG MELANOMA SKIN NOS 03/29/2019 FRANCISCO ROLON N Ot 786.6 CHEST SWELLING/MASS/LUMP 03/29/2019 EUGENIA YI LATENT PRINT EXAMINER Ot 172.9 MALIG MELANOMA SKIN NOS 03/29/2019 EUGENIA YI LATENT PRINT EXAMINER Ot V58.69 OTH MED,LT,CURRENT USE 03/29/2019 YIEUGENIA Veras LATENT PRINT EXAMINER Ot V58.83 ENCOUNTER FOR THERAPEUTIC DRUG MONITORIN 03/29/2019 JUANITO YITOD Rito LATENT PRINT EXAMINER Ot 172.5 MALIG MELANOMA TRUNK 03/29/2019 YIEUGENIA Veras LATENT PRINT EXAMINER Ot V10.3 HX OF BREAST MALIGNANCY 03/29/2019 JUANITO YITOD Rito LATENT PRINT EXAMINER Ot V15.3 HX OF IRRADIATION 03/29/2019 JUANITO YITOD Rito LATENT PRINT EXAMINER Ot V58.69 OTH MED,LT,CURRENT USE 03/29/2019 KASSIDY JUANITOTOD Veras LATENT PRINT EXAMINER Ot V87.41 PERSONAL HISTORY OF ANTINEOPLASTIC CHEMO 03/29/2019 EUGENIA YI LATENT PRINT EXAMINER Ot 172.5 MALIG MELANOMA TRUNK 03/29/2019 EUGENIA YI LATENT PRINT EXAMINER Ot 199.1 MALIGNANT NEOPLASM NOS 03/29/2019 EUGENIA YI LATENT PRINT EXAMINER Ot 786.2 COUGH 03/29/2019 EUGENIA YI LATENT PRINT EXAMINER Ot V10.3 HX OF BREAST MALIGNANCY 03/29/2019 EUGENIA YI LATENT PRINT EXAMINER Ot V15.3 HX OF IRRADIATION 03/29/2019 EUGENIA IY LATENT PRINT EXAMINER Ot V58.69 OTH MED,LT,CURRENT USE 03/29/2019 EUGENIA YI LATENT PRINT EXAMINER Ot V87.41 PERSONAL HISTORY OF ANTINEOPLASTIC CHEMO 03/29/2019 EUGENIA YI LATENT PRINT EXAMINER Ot 172.5 MALIG MELANOMA TRUNK 03/29/2019 EUGENIA YI LATENT PRINT EXAMINER Ot 199.1 MALIGNANT NEOPLASM NOS 03/29/2019 EUGENIA YI LATENT PRINT EXAMINER Ot 511.9 PLEURAL EFFUSION NOS 03/29/2019 EUGENIA YI LATENT PRINT EXAMINER Ot V10.3 HX OF BREAST MALIGNANCY 03/29/2019 EUGENIA YI LATENT PRINT EXAMINER Ot V15.3 HX OF IRRADIATION 03/29/2019 EUGENIA YI LATENT PRINT EXAMINER Ot V58.69 OTH MED,LT,CURRENT USE 03/29/2019 EUGENIA YI LATENT PRINT EXAMINER Ot V87.41 PERSONAL HISTORY OF ANTINEOPLASTIC CHEMO 03/29/2019 EUGENIA YI LATENT PRINT EXAMINER Ot 780.60 FEVER, UNSPECIFIED 03/29/2019 EUGENIA YI LATENT PRINT EXAMINER Ot 786.2 COUGH 03/29/2019 EUGENIA YI LATENT PRINT EXAMINER Ot 172.5 MALIG MELANOMA TRUNK 03/29/2019 KASSIDY EUGENIA S LATENT PRINT EXAMINER Ot 199.1 MALIGNANT NEOPLASM NOS 03/29/2019 EUGENIA YI LATENT PRINT EXAMINER Ot V10.3 HX OF BREAST MALIGNANCY 03/29/2019 KASSIDY EUGENIA Veras LATENT PRINT EXAMINER Ot V15.3 HX OF IRRADIATION 03/29/2019 EUGENIA YI Rito LATENT PRINT EXAMINER Ot V58.69 OTH MED,LT,CURRENT USE 03/29/2019 EUGENIA YI LATENT PRINT EXAMINER Ot V87.41 PERSONAL HISTORY OF ANTINEOPLASTIC CHEMO 03/29/2019 EUGENIA YI LATENT PRINT EXAMINER Ot 414.00 CORON ATHEROSCLER NOS TYPE VESSEL, NATIV 03/29/2019 EUGENIA YI LATENT PRINT EXAMINER Ot V58.69 OTH MED,LT,CURRENT USE 03/29/2019 EUGENIA YI LATENT PRINT EXAMINER Ot V58.83 ENCOUNTER FOR THERAPEUTIC DRUG MONITORIN 03/29/2019 KARLA TRAVIS MD Ot 272.4 HYPERLIPIDEMIA NEC/NOS 03/29/2019 KARLA TRAVIS MD Ot 401.9 HYPERTENSION NOS 03/29/2019 KARLA TRAVIS MD Ot V58.6 9 OTH MED,LT,CURRENT USE 03/29/2019 EUGENIA YI LATENT PRINT EXAMINER Ot 172.5 MALIG MELANOMA TRUNK 03/29/2019 EUGENIA YI LATENT PRINT EXAMINER Ot 199.1 MALIGNANT NEOPLASM NOS 03/29/2019 EUGENIA YI LATENT PRINT EXAMINER Ot 511.9 PLEURAL EFFUSION NOS 03/29/2019 EUGENIA YI LATENT PRINT EXAMINER Ot V10.3 HX OF BREAST MALIGNANCY 03/29/2019 EUGENIA YI LATENT PRINT EXAMINER Ot V15.3 HX OF IRRADIATION 03/29/2019 EUGENIA YI LATENT PRINT EXAMINER Ot V58.69 OTH MED,LT,CURRENT USE 03/29/2019 KASSIDY JUANITOTOD Veras LATENT PRINT EXAMINER Ot V87.41 PERSONAL HISTORY OF ANTINEOPLASTIC CHEMO 03/29/2019 EUGENIA YI LATENT PRINT EXAMINER Ot 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, UNSPECIFIED 03/29/2019 Ot C43.9 DAVID GNANT MELANOMA OF SKIN, UNSPECIFIED 03/29/2019 EUGENIA YI LATENT PRINT EXAMINER Ot 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, UNSPECIFIED 03/29/2019 EUGENIA YI LATENT PRINT EXAMINER Ot C43.59 MALIGNANT MELANOMA OF OTHER PART OF TRUN 03/29/2019 KASSIDY EUGENIA Veras LATENT PRINT EXAMINER Ot C43.59 MALIGNANT MELANOMA OF OTHER PART OF TRUN 03/29/2019 EUGENIA YI LATENT PRINT EXAMINER Ot 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 03/29/2019 EUGENIA YI LATENT PRINT EXAMINER Ot Z85.3 PERSONAL HISTORY OF MALIGNANT NEOPLASM O 03/29/2019 EUGENIA YI LATENT PRINT EXAMINER Ot Z92.21 PERSONAL HISTORY OF ANTINEOPLASTIC CHEMO 03/29/2019 EUGENIA YI LATENT PRINT EXAMINER Ot Z92.3 PERSONAL HISTORY OF IRRADIATION 03/29/2019 EUGENIA YI LATENT PRINT EXAMINER Ot C43.59 MALIGNANT MELANOMA OF OTHER PART OF TRUN 03/29/2019 EUGENIA YI LATENT PRINT EXAMINER Ot 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 03/29/2019 EUGENIA YI LATENT PRINT EXAMINER Ot Z85.3 PERSONAL HISTORY OF MALIGNANT NEOPLASM O 03/29/2019 EUGENIA YI LATENT PRINT EXAMINER Ot Z92.21 PERSONAL HISTORY OF ANTINEOPLASTIC CHEMO 03/29/2019 EUGENIA YI LATENT PRINT EXAMINER Ot Z92.3 PERSONAL HISTORY OF IRRADIATION 03/29/2019 EUGENIA YI LATENT PRINT EXAMINER Ot C43.59 MALIGNANT MELANOMA OF OTHER PART OF TRUN 03/29/2019 EUGENIA YIP Ot Z79.899 OTHER [facility] (CURRENT) DRUG THERAPY 03/29/2019 EUGENIA YI LATENT PRINT EXAMINER Ot Z85.3 PERSONAL HISTORY OF MALIGNANT NEOPLASM O 03/29/2019 EUGENIA YI LATENT PRINT EXAMINER Ot Z92.3 PERSONAL HISTORY OF IRRADIATION 03/29/2019 RIKA WYNNE MD Ot L98.9 DISORDER OF THE SKIN AND SUBCUTANEOUS TI 03/29/2019 SHERRELL HOFFMAN, RIKA Bledsoe Ot Z01.818 ENCOUNTER FOR OTHER PREPROCEDURAL EXAMIN 03/29/2019 EUGENIA YI LATENT PRINT EXAMINER Ot C43.59 MALIGNANT MELANOMA OF OTHER PART OF TRUN 03/29/2019 EUGENIA YI LATENT PRINT EXAMINER Ot C43.59 MALIGNANT MELANOMA OF OTHER PART OF TRUN 03/29/2019 EUGENIA YIP Ot C77.3 SEC AND UNSP MALIG NEOPLASM OF AXILLA AN 03/29/2019 EUGENIA YI LATENT PRINT EXAMINER Ot Z79.899 OTHER [facility] (CURRENT) DRUG THERAPY 03/29/2019 EUGENIA YI LATENT PRINT EXAMINER Ot Z85.3 PERSONAL HISTORY OF MALIGNANT NEOPLASM O 03/29/2019 EUGENIA YI LATENT PRINT EXAMINER Ot Z92.21 PERSONAL HISTORY OF ANTINEOPLASTIC CHEMO 03/29/2019 EUGENIA YI LATENT PRINT EXAMINER Ot Z92.3 PERSONAL HISTORY OF IRRADIATION 03/29/2019 EUGENIA YI LATENT PRINT EXAMINER Ot C43.59 MALIGNANT MELANOMA OF OTHER PART OF TRUN 03/29/2019 EUGENIA YI LATENT PRINT EXAMINER Ot C77.3 SEC AND UNSP MALIG NEOPLASM OF [place] AN 03/29/2019 EUGENIA YI LATENT PRINT EXAMINER Ot Z79.899 OTHER [facility] (CURRENT) DRUG THERAPY 03/29/2019 EUGENIA YI LATENT PRINT EXAMINER Ot Z85.3 PERSONAL HISTORY OF MALIGNANT NEOPLASM O 03/29/2019 EUGENIA YI LATENT PRINT EXAMINER Ot Z92.21 PERSONAL HISTORY OF ANTINEOPLASTIC CHEMO 03/29/2019 EUGENIA YI LATENT PRINT EXAMINER Ot Z92.3 PERSONAL HISTORY OF IRRADIATION 03/29/2019 EUGENIA YI LATENT PRINT EXAMINER Ot C43.59 MALIGNANT MELANOMA OF OTHER PART OF TRUN 03/29/2019 EUGENIA YI LATENT PRINT EXAMINER Ot C43.59 MALIGNANT MELANOMA OF OTHER PART OF TRUN 03/29/2019 EUGENIA YI LATENT PRINT EXAMINER Ot C77.3 SEC AND UNSP MALIG NEOPLASM OF AXILL[place] AN 03/29/2019 EUGENIA YI LATENT PRINT EXAMINER Ot 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 03/29/2019 EUGENIA YI LATENT PRINT EXAMINER Ot Z85.3 PERSONAL HISTORY OF MALIGNANT NEOPLASM O 03/29/2019 EUGENIA YI LATENT PRINT EXAMINER Ot Z92.21 PERSONAL HISTORY OF ANTINEOPLASTIC CHEMO 03/29/2019 EUGENIA YI S LATENT PRINT EXAMINER Ot Z92.3 PERSONAL HISTORY OF IRRADIATION 03/29/2019 EUGENIA YI LATENT PRINT EXAMINER Ot C43.59 MALIGNANT MELANOMA OF OTHER PART OF TRUN 03/29/2019 EUGENIA YI LATENT PRINT EXAMINER Ot C77.3 SEC AND UNSP MALIG NEOPLASM OF AXILLA AN 03/29/2019 EUGENIA YI LATENT PRINT EXAMINER Ot Z79.899 OTHER [facility] (CURRENT) DRUG THERAPY 03/29/2019 YIJUANITOTOD Veras LATENT PRINT EXAMINER Ot Z85.3 PERSONAL HISTORY OF MALIGNANT NEOPLASM O 03/29/2019 JUANITO YITOD Rito LATENT PRINT EXAMINER Ot Z92.21 PERSONAL HISTORY OF ANTINEOPLASTIC CHEMO 03/29/2019 JUANITO YITOD Veras LATENT PRINT EXAMINER Ot Z92.3 PERSONAL HISTORY OF IRRADIATION 03/29/2019 JUANITO YITOD Veras LATENT PRINT EXAMINER Ot C43.59 MALIGNANT MELANOMA OF OTHER PART OF TRUN 03/29/2019 JUANITO YITOD Rito LATENT PRINT EXAMINER Ot C77.3 SEC AND UNSP MALIG NEOPLASM OF AXILLA AN 03/29/2019 JUANITO YITOD Rito LATENT PRINT EXAMINER Ot Z79.899 OTHER [facility] (CURRENT) DRUG THERAPY 03/29/2019 EUGENIA YI LATENT PRINT EXAMINER Ot Z85.3 PERSONAL HISTORY OF MALIGNANT NEOPLASM O 03/29/2019 JUANITO YITOD Rito LATENT PRINT EXAMINER Ot Z92.21 PERSONAL HISTORY OF ANTINEOPLASTIC CHEMO 03/29/2019 EUGENIA YI LATENT PRINT EXAMINER Ot Z92.3 PERSONAL HISTORY OF IRRADIATION 03/29/2019 EUGENIA YI LATENT PRINT EXAMINER Ot 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 03/29/2019 EUGENIA YI LATENT PRINT EXAMINER Ot C77.3 SEC AND UNSP MALIG NEOPLASM OF AXILLA AN 03/29/2019 EUGENIA YI LATENT PRINT EXAMINER Ot 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 03/29/2019 EUGENIA YI LATENT PRINT EXAMINER Ot Z85.3 PERSONAL HISTORY OF MALIGNANT NEOPLASM O 03/29/2019 EUGENIA YI LATENT PRINT EXAMINER Ot Z92.21 PERSONAL HISTORY OF ANTINEOPLASTIC CHEMO 03/29/2019 EUGENIA YI LATENT PRINT EXAMINER Ot Z92.3 PERSONAL HISTORY OF IRRADIATION 03/29/2019 EUGENIA YI LATENT PRINT EXAMINER Ot M79.89 OTHER SPECIFIED SOFT TISSUE DISORDERS 03/29/2019 EUGENIA YI LATENT PRINT EXAMINER Ot 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 03/29/2019 EUGENIA YI LATENT PRINT EXAMINER Ot C77.3 SEC AND UNSP MALIG NEOPLASM OF AXILLA AN 03/29/2019 EUGENIA YI LATENT PRINT EXAMINER Ot Z79.899 OTHER [facility] (CURRENT) DRUG THERAPY 03/29/2019 EUGENIA YI LATENT PRINT EXAMINER Ot Z85.3 PERSONAL HISTORY OF MALIGNANT NEOPLASM O 03/29/2019 EUGENIA YI LATENT PRINT EXAMINER Ot Z92.21 PERSONAL HISTORY OF ANTINEOPLASTIC CHEMO 03/29/2019 EUGENIA YI LATENT PRINT EXAMINER Ot Z92.3 PERSONAL HISTORY OF IRRADIATION 03/29/2019 KARLA TRAVIS MD Ot 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, UNSPECIFIED 03/29/2019 KARLA TRAVIS MD Ot E78.4 OTHER HYPERLIPIDEMIA 03/29/2019 KARLA TRAVIS MD Ot I10 ESSENTIAL (PRIMARY) HYPERTENSION 03/29/2019 KARLA TRAVIS MD Ot Z79.8 99 OTHER [facility] (CURRENT) DRUG THERAPY 03/29/2019 VERNON HOFFMAN FAC, ALI FACP CCDS Ot 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 03/29/2019 VERNON HOFFMAN FAC, ALI FACP CCDS Ot E78.4 OTHER HYPERLIPIDEMIA 03/29/2019 VERNON HOFFMAN FAC, ALI FACP CCDS Ot I25.10 ATHSCL HEART DISEASE OF [place] CORONARY 03/29/2019 VERNON HOFFMAN FAC, ALI FACP CCDS Ot I65.23 OCCLUSION AND STENOSIS OF BILATERAL [place] 03/29/2019 VERNON HOFFMAN FAC, ALI FACP CCDS Ot N18.3 CHRONIC KIDNEY DISEASE, STAGE 3 (MODERAT 03/29/2019 EUGENIA YI LATENT PRINT EXAMINER Ot 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 03/29/2019 EUGENIA YI LATENT PRINT EXAMINER Ot C77.3 SEC AND UNSP MALIG NEOPLASM OF AXILLA AN 03/29/2019 EUGENIA YI LATENT PRINT EXAMINER Ot Z79.899 OTHER [facility] (CURRENT) DRUG THERAPY 03/29/2019 EUGENIA YI LATENT PRINT EXAMINER Ot Z85.3 PERSONAL HISTORY OF MALIGNANT NEOPLASM O 03/29/2019 EUGENIA YI LATENT PRINT EXAMINER Ot Z92.21 PERSONAL HISTORY OF ANTINEOPLASTIC CHEMO 03/29/2019 EUGENIA YI LATENT PRINT EXAMINER Ot Z92.3 PERSONAL HISTORY OF IRRADIATION 03/29/2019 EUGENIA YI LATENT PRINT EXAMINER Ot 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 03/29/2019 EUGENIA YIP Ot C77.3 SEC AND UNSP MALIG NEOPLASM OF AXILLA AN 03/29/2019 FRANCISCO ROLON Ot C77.3 SEC AND UNSP MALIG NEOPLASM OF AXILLA AN 03/29/2019 FRANCISCO ROLON Ot M62.9 DISORDER OF MUSCLE, UNSPECIFIED 03/29/2019 FRANCISCO ROLON Ot R94.8 ABNORMAL RESULTS OF FUNCTION STUDIES OF 03/29/2019 KARLA TRAVIS MD Ot R53.8 3 OTHER FATIGUE 03/29/2019 EUGENIA YI S LATENT PRINT EXAMINER Ot E80.6 OTHER DISORDERS OF BILIRUBIN METABOLISM 03/29/2019 EUGENIA YI S LATENT PRINT EXAMINER Ot 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 03/29/2019 EUGENIA YI S LATENT PRINT EXAMINER Ot E80.6 OTHER DISORDERS OF BILIRUBIN METABOLISM 03/29/2019 FRANCISCO ROLON Ot 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 03/29/2019 EUGENIA YI LATENT PRINT EXAMINER Ot N 63 UNSPECIFIED LUMP IN BREAST 03/29/2019 EUGENIA YI S LATENT PRINT EXAMINER Ot Z85.3 PERSONAL HISTORY OF MALIGNANT NEOPLASM O 03/29/2019 EUGENIA YI S LATENT PRINT EXAMINER Ot 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 03/29/2019 EUGENIA YI S LATENT PRINT EXAMINER Ot R26.9 UNSPECIFIED ABNORMALITIES OF GAIT AND MO 03/29/2019 EUGENIA YI S LATENT PRINT EXAMINER Ot R 42 DIZZINESS AND GIDDINESS 03/29/2019 EUGENIA YI S LATENT PRINT EXAMINER Ot R 51 HEADACHE 03/29/2019 KARLA TRAVIS MD Ot C43.5 9 MALIGNANT MELANOMA OF OTHER PART OF TRUN 03/29/2019 KARLA TRAVIS MD Ot R42 DIZZINESS AND GIDDINESS 03/29/2019 KARLA TRAVIS MD Ot Z85.3 PERSONAL HISTORY OF MALIGNANT NEOPLASM O 03/29/2019 KARLA TRAVIS MD Ot E03.9 HYPOTHYROIDISM, UNSPECIFIED 03/29/2019 EUGENIA YI S LATENT PRINT EXAMINER Ot C43.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 03/29/2019 KARLA TRAVIS MD Ot E78.5 HYPERLIPIDEMIA, UNSPECIFIED 03/29/2019 VERNON HOFFMAN FAC, ALI FACP CCDS Ot E78.4 OTHER HYPERLIPIDEMIA 03/29/2019 VERNON HOFFMAN FAC, ALI FACP CCDS Ot I10 ESSENTIAL (PRIMARY) HYPERTENSION 03/29/2019 VERNON HOFFMAN FAC, ALI FACP CCDS Ot I25.10 ATHSCL HEART DISEASE OF [place] CORONARY 03/29/2019 VERNON HOFFMAN [facility], ALI FACP CCDS Ot I65.23 OCCLUSION AND STENOSIS OF BILATERAL [place] 03/29/2019 VERNON HOFFMAN [facility], ALI FACP CCDS Ot R06.09 OTHER FORMS OF DYSPNEA 03/29/2019 VERNON HOFFMAN [facility], ALI FACP CCDS Ot R53.1 WEAKNESS 03/29/2019 VERNON HOFFMAN [facility], ALI FACP CCDS Ot E78.4 OTHER HYPERLIPIDEMIA 03/29/2019 VERNON HOFFMAN [facility], ALI FACP CCDS Ot I10 ESSENTIAL (PRIMARY) HYPERTENSION 03/29/2019 VERNON HOFFMAN [facility], ALI FACP CCDS Ot I25.10 ATHSCL HEART DISEASE OF [place] CORONARY 03/29/2019 VERNON HOFFMAN [facility], ALI FACP CCDS Ot I65.23 OCCLUSION AND STENOSIS OF BILATERAL [place] 03/29/2019 VERNON HOFFMAN [facility], ALI FACP CCDS Ot R06.09 OTHER FORMS OF DYSPNEA 03/29/2019 VERNON HOFFMAN [facility], ALI FACP CCDS Ot R53.1 WEAKNESS 03/29/2019 EUGENIA YI LATENT PRINT EXAMINER Ot C43.59 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3 SEC AND UNSP MALIG NEOPLASM OF [place] 03/29/2019 EUGENIA YI LATENT PRINT EXAMINER Ot Z85.820 PERSONAL HISTORY OF MALIGNANT MELANOMA O 03/29/2019 KARLA TARVIS MD Ot 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, UNSP WITHOUT THYROTOXIC 03/29/2019 KARLA TRAVIS MD Ot E78.4 OTHER HYPERLIPIDEMIA 03/29/2019 KARLA TRAVIS MD Ot I10 ESSENTIAL (PRIMARY) HYPERTENSION 03/29/2019 GORDON WEATHERS MD Ot C43.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 03/29/2019 GORDON WEATHERS MD Ot C50.919 MALIGNANT NEOPLASM OF UNSP SITE OF UNSPE 03/29/2019 GORDON WEATHERS MD Ot R10.31 RIGHT LOWER QUADRANT PAIN 03/29/2019 GORDON WEATHERS MD Ot R91.1 SOLITARY PULMONARY NODULE 03/29/2019 DARRYL POPE MD Ot H93.3X9 DISORDERS OF UNSPECIFIED ACOUSTIC NERVE 03/29/2019 DARRYL POPE MD Ot I63.89 OTHER CEREBRAL INFARCTION 03/29/2019 DARRYL POPE MD Ot Z01.812 ENCOUNTER FOR PREPROCEDURAL LABORATORY E 03/29/2019 DARRYL POPE MD Ot Z85.3 PERSONAL HISTORY OF MALIGNANT NEOPLASM O 03/29/2019 DARRYL POPE MD Ot Z85.820 PERSONAL HISTORY OF MALIGNANT MELANOMA O 03/29/2019 EUGENIA YI Ot C43.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 03/29/2019 EUGENIA YI Ot C77.3 SEC AND UNSP MALIG NEOPLASM OF [place] 03/29/2019 EUGENIA YI Ot L98.9 DISORDER OF THE SKIN AND SUBCUTANEOUS TI 03/29/2019 EUGENIA YI Ot R91.8 OTHER NONSPECIFIC ABNORMAL FINDING OF JEAN 03/29/2019 EUGENIA YIP Ot Z01.89 ENCOUNTER FOR OTHER SPECIFIED SPECIAL EX 03/29/2019 FRANCISCO ROLON Ot C43.59 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 03/29/2019 FRANCISCO ROLON Ot C77.3 SEC AND UNSP MALIG NEOPLASM OF [place] 03/29/2019 FRANCISCO ROLON Ot C79.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 03/29/2019 FRANCISCO ROLON Ot E03.9 HYPOTHYROIDISM, UNSPECIFIED 03/29/2019 FRANCISCO ROLON Ot E78.5 HYPERLIPIDEMIA, UNSPECIFIED 03/29/2019 FRANCISCO ROLON Ot I12.9 HYPERTENSIVE CHRONIC KIDNEY DISEASE W ST 03/29/2019 FRANCISCO ROLON Ot I25.10 ATHSCL HEART DISEASE OF [place] CORONARY 03/29/2019 FRANCISCO ROLON Ot N18.3 CHRONIC KIDNEY DISEASE, STAGE 3 (MODERAT 03/29/2019 FRANCISCO ROLON Ot 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 03/29/2019 FRANCISCO ROLON Ot Z85.3 PERSONAL HISTORY OF MALIGNANT NEOPLASM O 03/29/2019 FRANCISCO ROLON Ot Z92.21 PERSONAL HISTORY OF ANTINEOPLASTIC CHEMO 03/29/2019 FRANCISCO ROLON Tarah Ot Z92.3 PERSONAL HISTORY OF IRRADIATION 03/29/2019 NIKO HOFFMAN, DARRYL Bledsoe Ot 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, UNSPECIFIED 03/29/2019 DARRYL POPE MD Ot H81.90 UNSPECIFIED DISORDER OF VESTIBULAR FUNCT 03/29/2019 DARRYL POPE MD Ot Z85.3 PERSONAL HISTORY OF MALIGNANT NEOPLASM O 03/29/2019 DARRYL POPE MD Ot Z95.1 PRESENCE OF AORTOCORONARY BYPASS GRAFT 03/29/2019 ANGY HOFFMAN, KARLA Horowitz Ot Z01.8 9 ENCOUNTER FOR OTHER SPECIFIED SPECIAL EX 03/30/2019 EUGENIA YI LATENT PRINT EXAMINER Ot 172.5 MALIG MELANOMA TRUNK 03/30/2019 EUGENIA YI LATENT PRINT EXAMINER Ot 724.2 LUMBAGO 03/30/2019 EUGENIA YI LATENT PRINT EXAMINER Ot 781.2 ABNORMALITY OF GAIT 03/30/2019 EUGENIA YI LATENT PRINT EXAMINER Ot 784.0 HEADACHE 03/30/2019 EUGENIA YI LATENT PRINT EXAMINER Ot V10.3 HX OF BREAST MALIGNANCY 03/30/2019 EUGENIA YI LATENT PRINT EXAMINER Ot V15.3 HX OF IRRADIATION 03/30/2019 EUGENIA YI LATENT PRINT EXAMINER Ot V58.69 OT MED,LT,CURRENT USE 03/30/2019 EUGENIA YI LATENT PRINT EXAMINER Ot V87.41 PERSONAL HISTORY OF ANTINEOPLASTIC CHEMO 03/30/2019 EUGENIA YI LATENT PRINT EXAMINER Ot 172.9 MALIG MELANOMA SKIN NOS 03/30/2019 EUGENIA YI LATENT PRINT EXAMINER Ot 781.2 ABNORMALITY OF GAIT 03/30/2019 EUGENIA YI LATENT PRINT EXAMINER Ot 784.0 HEADACHE 03/30/2019 EUGENIA YI LATENT PRINT EXAMINER Ot 794.9 ABN FUNCTION STUDY NEC 03/30/2019 EUGENIA YIP Ot V76.12 OTH SCREEN MAMMO-MALIGN NEOPLASM OF [place] 03/30/2019 Ot 172.9 DAVID G MELANOMA SKIN NOS 03/30/2019 Ot V76.12 OTH SCREEN MAMMO- MALIGN NEOPLASM OF [place] 03/30/2019 FRANCISCO ROLON Ot 172.9 MALIG MELANOMA SKIN NOS 03/30/2019 FRANCISCO ROLON Ot V10.3 HX OF BREAST MALIGNANCY 03/30/2019 KARLA TRAVIS MD Ot 719.4 7 JOINT PAIN-ANKLE 03/30/2019 EUGENIA YI LATENT PRINT EXAMINER Ot 172.5 MALIG MELANOMA TRUNK 03/30/2019 EUGENIA YI LATENT PRINT EXAMINER Ot V10.3 HX OF BREAST MALIGNANCY 03/30/2019 EUGENIA YI LATENT PRINT EXAMINER Ot V15.3 HX OF IRRADIATION 03/30/2019 EUGENIA YI LATENT PRINT EXAMINER Ot V58.69 OTH MED,LT,CURRENT USE 03/30/2019 EUGENIA YI LATENT PRINT EXAMINER Ot V87.41 PERSONAL HISTORY OF ANTINEOPLASTIC CHEMO 03/30/2019 EUGENIA YI LATENT PRINT EXAMINER Ot 172.9 MALIG MELANOMA SKIN NOS 03/30/2019 EUGENIA YI LATENT PRINT EXAMINER Ot 174.9 MALIGN NEOPL BREAST NOS 03/30/2019 EUGENIA YI S LATENT PRINT EXAMINER Ot 724.5 BACKACHE NOS 03/30/2019 EUGENIA YI LATENT PRINT EXAMINER Ot 172.9 MALIG MELANOMA SKIN NOS 03/30/2019 EUGENIA YI LATENT PRINT EXAMINER Ot 174.9 MALIGN NEOPL BREAST NOS 03/30/2019 EUGENIA YI S LATENT PRINT EXAMINER Ot 724.5 BACKACHE NOS 03/30/2019 FRANCISCO ROLON Ot 172.9 MALIG MELANOMA SKIN NOS 03/30/2019 FRANCISCO ROLON Ot 786.6 CHEST SWELLING/MASS/LUMP 03/30/2019 EUGENIA YI S LATENT PRINT EXAMINER Ot 172.9 MALIG MELANOMA SKIN NOS 03/30/2019 EUGENIA YI LATENT PRINT EXAMINER Ot V58.69 OTH MED,LT,CURRENT USE 03/30/2019 EUGENIA YI S LATENT PRINT EXAMINER Ot V58.83 ENCOUNTER FOR THERAPEUTIC DRUG MONITORIN 03/30/2019 EUGENIA YI LATENT PRINT EXAMINER Ot 172.5 MALIG MELANOMA TRUNK 03/30/2019 EUGENIA YI LATENT PRINT EXAMINER Ot V10.3 HX OF BREAST MALIGNANCY 03/30/2019 YIEUGENIA Veras LATENT PRINT EXAMINER Ot V15.3 HX OF IRRADIATION 03/30/2019 EUGENIA YIP Ot V58.69 OTH MED,LT,CURRENT USE 03/30/2019 EUGENIA YI LATENT PRINT EXAMINER Ot V87.41 PERSONAL HISTORY OF ANTINEOPLASTIC CHEMO 03/30/2019 EUGENIA YI LATENT PRINT EXAMINER Ot 172.5 MALIG MELANOMA TRUNK 03/30/2019 EUGENIA YI LATENT PRINT EXAMINER Ot 199.1 MALIGNANT NEOPLASM NOS 03/30/2019 EUGENIA YI LATENT PRINT EXAMINER Ot 786.2 COUGH 03/30/2019 EUGENIA YI LATENT PRINT EXAMINER Ot V10.3 HX OF BREAST MALIGNANCY 03/30/2019 EUGENIA YI LATENT PRINT EXAMINER Ot V15.3 HX OF IRRADIATION 03/30/2019 EUGENIA YI LATENT PRINT EXAMINER Ot V58.69 OTH MED,LT,CURRENT USE 03/30/2019 EUGENIA YI LATENT PRINT EXAMINER Ot V87.41 PERSONAL HISTORY OF ANTINEOPLASTIC CHEMO 03/30/2019 EUGENIA YI LATENT PRINT EXAMINER Ot 172.5 MALIG MELANOMA TRUNK 03/30/2019 EUGENIA YI LATENT PRINT EXAMINER Ot 199.1 MALIGNANT NEOPLASM NOS 03/30/2019 EUGENIA YI LATENT PRINT EXAMINER Ot 511.9 PLEURAL EFFUSION NOS 03/30/2019 EUGENIA YI LATENT PRINT EXAMINER Ot V10.3 HX OF BREAST MALIGNANCY 03/30/2019 EUGENIA YI LATENT PRINT EXAMINER Ot V15.3 HX OF IRRADIATION 03/30/2019 EUGENIA YI LATENT PRINT EXAMINER Ot V58.69 OTH MED,LT,CURRENT USE 03/30/2019 EUGENIA YI LATENT PRINT EXAMINER Ot V87.41 PERSONAL HISTORY OF ANTINEOPLASTIC CHEMO 03/30/2019 EUGENIA YI LATENT PRINT EXAMINER Ot 780.60 FEVER, UNSPECIFIED 03/30/2019 EUGENIA YI LATENT PRINT EXAMINER Ot 786.2 COUGH 03/30/2019 EUGENIA YI LATENT PRINT EXAMINER Ot 172.5 MALIG MELANOMA TRUNK 03/30/2019 EUGENIA YI LATENT PRINT EXAMINER Ot 199.1 MALIGNANT NEOPLASM NOS 03/30/2019 EUGENIA YI LATENT PRINT EXAMINER Ot V10.3 HX OF BREAST MALIGNANCY 03/30/2019 EUGENIA YI LATENT PRINT EXAMINER Ot V15.3 HX OF IRRADIATION 03/30/2019 EUGENIA YI Ot V58.69 OTH MED,LT,CURRENT USE 03/30/2019 EUGENIA YI LATENT PRINT EXAMINER Ot V87.41 PERSONAL HISTORY OF ANTINEOPLASTIC CHEMO 03/30/2019 EUGENIA YI LATENT PRINT EXAMINER Ot 414.00 CORON ATHEROSCLER NOS TYPE VESSEL, NATIV 03/30/2019 EUGENIA YI LATENT PRINT EXAMINER Ot V58.69 OTH MED,LT,CURRENT USE 03/30/2019 EUGENIA YIP Ot V58.83 ENCOUNTER FOR THERAPEUTIC DRUG MONITORIN 03/30/2019 KARLA TRAVIS MD Ot 272.4 HYPERLIPIDEMIA NEC/NOS 03/30/2019 KARLA TRAVIS MD Ot 401.9 HYPERTENSION NOS 03/30/2019 KARLA TRAVIS MD Ot V58.6 9 OTH MED,LT,CURRENT USE 03/30/2019 EUGENIA YI LATENT PRINT EXAMINER Ot 172.5 MALIG MELANOMA TRUNK 03/30/2019 EUGENIA YI LATENT PRINT EXAMINER Ot 199.1 MALIGNANT NEOPLASM NOS 03/30/2019 EUGENIA YI LATENT PRINT EXAMINER Ot 511.9 PLEURAL EFFUSION NOS 03/30/2019 EUGENIA YI LATENT PRINT EXAMINER Ot V10.3 HX OF BREAST MALIGNANCY 03/30/2019 EUGENIA YI LATENT PRINT EXAMINER Ot V15.3 HX OF IRRADIATION 03/30/2019 EUGENIA YIP Ot V58.69 OTH MED,LT,CURRENT USE 03/30/2019 EUGENIA YI LATENT PRINT EXAMINER Ot V87.41 PERSONAL HISTORY OF ANTINEOPLASTIC CHEMO 03/30/2019 EUGENIA YI LATENT PRINT EXAMINER Ot 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, UNSPECIFIED 03/30/2019 Ot C43.9 DAVID GNANT MELANOMA OF SKIN, UNSPECIFIED 03/30/2019 EUGENIA YI LATENT PRINT EXAMINER Ot 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, UNSPECIFIED 03/30/2019 EUGENIA YI LATENT PRINT EXAMINER Ot 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 03/30/2019 EUGENIA IY LATENT PRINT EXAMINER Ot C43.59 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 03/30/2019 JUANITO YITOD Veras LATENT PRINT EXAMINER Ot 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 03/30/2019 JUANITO YITOD Veras LATENT PRINT EXAMINER Ot Z85.3 PERSONAL HISTORY OF MALIGNANT NEOPLASM O 03/30/2019 YIJUANITOTOD Veras LATENT PRINT EXAMINER Ot Z92.21 PERSONAL HISTORY OF ANTINEOPLASTIC CHEMO 03/30/2019 JUANITO YITOD Veras LATENT PRINT EXAMINER Ot Z92.3 PERSONAL HISTORY OF IRRADIATION 03/30/2019 EUGENIA YI LATENT PRINT EXAMINER Ot C43.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 03/30/2019 JUANITO YITOD Rito LATENT PRINT EXAMINER Ot 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 03/30/2019 JUANITO YITOD Rito LATENT PRINT EXAMINER Ot Z85.3 PERSONAL HISTORY OF MALIGNANT NEOPLASM O 03/30/2019 JUANITO YITOD Rito LATENT PRINT EXAMINER Ot Z92.21 PERSONAL HISTORY OF ANTINEOPLASTIC CHEMO 03/30/2019 EUGENIA YI LATENT PRINT EXAMINER Ot Z92.3 PERSONAL HISTORY OF IRRADIATION 03/30/2019 EUGENIA YI LATENT PRINT EXAMINER Ot C43.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 03/30/2019 EUGENIA YI LATENT PRINT EXAMINER Ot Z79.899 OTHER [facility] (CURRENT) DRUG THERAPY 03/30/2019 EUGENIA YI LATENT PRINT EXAMINER Ot Z85.3 PERSONAL HISTORY OF MALIGNANT NEOPLASM O 03/30/2019 EUGENIA YI Rito LATENT PRINT EXAMINER Ot Z92.3 PERSONAL HISTORY OF IRRADIATION 03/30/2019 RIKA WYNNE MD Ot L98.9 DISORDER OF THE SKIN AND SUBCUTANEOUS TI 03/30/2019 RIKA WYNNE MD Ot Z01.818 ENCOUNTER FOR OTHER PREPROCEDURAL EXAMIN 03/30/2019 EUGENIA YI LATENT PRINT EXAMINER Ot C43.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 03/30/2019 EUGENIA YI LATENT PRINT EXAMINER Ot 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 03/30/2019 EUGENIA YIP Ot C77.3 SEC AND UNSP MALIG NEOPLASM OF [place] 03/30/2019 EUGENIA YI LATENT PRINT EXAMINER Ot 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 03/30/2019 EUGENIA YI LATENT PRINT EXAMINER Ot Z85.3 PERSONAL HISTORY OF MALIGNANT NEOPLASM O 03/30/2019 YI EUGENIA Veras LATENT PRINT EXAMINER Ot Z92.21 PERSONAL HISTORY OF ANTINEOPLASTIC CHEMO 03/30/2019 YIJUANITOTOD Rito LATENT PRINT EXAMINER Ot Z92.3 PERSONAL HISTORY OF IRRADIATION 03/30/2019 KASSIDY EUGENIA Veras LATENT PRINT EXAMINER Ot C43.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 03/30/2019 JUANITO YITOD Rito LATENT PRINT EXAMINER Ot C77.3 SEC AND UNSP MALIG NEOPLASM OF [place] 03/30/2019 JUANITO YITOD Rito LATENT PRINT EXAMINER Ot Z79.899 OTHER [facility] (CURRENT) DRUG THERAPY 03/30/2019 JUANITO YITOD S LATENT PRINT EXAMINER Ot Z85.3 PERSONAL HISTORY OF MALIGNANT NEOPLASM O 03/30/2019 JUANITO YITOD Rito LATENT PRINT EXAMINER Ot Z92.21 PERSONAL HISTORY OF ANTINEOPLASTIC CHEMO 03/30/2019 JUANITO YITOD Rito LATENT PRINT EXAMINER Ot Z92.3 PERSONAL HISTORY OF IRRADIATION 03/30/2019 EUGENIA YI LATENT PRINT EXAMINER Ot C43.59 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 03/30/2019 JUANITO YITOD S LATENT PRINT EXAMINER Ot C43.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 03/30/2019 JUANITO YITOD Rito LATENT PRINT EXAMINER Ot C77.3 SEC AND UNSP MALIG NEOPLASM OF [place] 03/30/2019 EUGENIA YI LATENT PRINT EXAMINER Ot 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 03/30/2019 EUGENIA YI LATENT PRINT EXAMINER Ot Z85.3 PERSONAL HISTORY OF MALIGNANT NEOPLASM O 03/30/2019 EUGENIA YI LATENT PRINT EXAMINER Ot Z92.21 PERSONAL HISTORY OF ANTINEOPLASTIC CHEMO 03/30/2019 JUANITO YITOD S LATENT PRINT EXAMINER Ot Z92.3 PERSONAL HISTORY OF IRRADIATION 03/30/2019 JUANITO YITOD S LATENT PRINT EXAMINER Ot C43.59 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 03/30/2019 EUGENIA YI LATENT PRINT EXAMINER Ot C77.3 SEC AND UNSP MALIG NEOPLASM OF [place] 03/30/2019 EUGENIA YI LATENT PRINT EXAMINER Ot 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 03/30/2019 EUGENIA YI S LATENT PRINT EXAMINER Ot Z85.3 PERSONAL HISTORY OF MALIGNANT NEOPLASM O 03/30/2019 EUGENIA YI S LATENT PRINT EXAMINER Ot Z92.21 PERSONAL HISTORY OF ANTINEOPLASTIC CHEMO 03/30/2019 JUANITO YITOD Veras LATENT PRINT EXAMINER Ot Z92.3 PERSONAL HISTORY OF IRRADIATION 03/30/2019 JUANITO YITOD Rito LATENT PRINT EXAMINER Ot C43.59 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 03/30/2019 JUANITO YITOD Veras LATENT PRINT EXAMINER Ot C77.3 SEC AND UNSP MALIG NEOPLASM OF [place] 03/30/2019 EUGENIA YI LATENT PRINT EXAMINER Ot Z79.899 OTHER [facility] (CURRENT) DRUG THERAPY 03/30/2019 JUANITO YITOD Rito LATENT PRINT EXAMINER Ot Z85.3 PERSONAL HISTORY OF MALIGNANT NEOPLASM O 03/30/2019 JUANITO YITOD Rito LATENT PRINT EXAMINER Ot Z92.21 PERSONAL HISTORY OF ANTINEOPLASTIC CHEMO 03/30/2019 EUGENIA YI LATENT PRINT EXAMINER Ot Z92.3 PERSONAL HISTORY OF IRRADIATION 03/30/2019 EUGENIA YI LATENT PRINT EXAMINER Ot C43.59 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 03/30/2019 EUGENIA YI LATENT PRINT EXAMINER Ot C77.3 SEC AND UNSP MALIG NEOPLASM OF [place] AN 03/30/2019 EUGENIA YI LATENT PRINT EXAMINER Ot 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 03/30/2019 EUGENIA YI LATENT PRINT EXAMINER Ot Z85.3 PERSONAL HISTORY OF MALIGNANT NEOPLASM O 03/30/2019 EUGENIA YI LATENT PRINT EXAMINER Ot Z92.21 PERSONAL HISTORY OF ANTINEOPLASTIC CHEMO 03/30/2019 EUGENIA YI LATENT PRINT EXAMINER Ot Z92.3 PERSONAL HISTORY OF IRRADIATION 03/30/2019 EUGENIA YI LATENT PRINT EXAMINER Ot M79.89 OTHER SPECIFIED SOFT TISSUE DISORDERS 03/30/2019 EUGENIA YI LATENT PRINT EXAMINER Ot C43.59 MALIGNANT MELANOMA OF OTHER PART OF TRUN 03/30/2019 EUGENIA YI LATENT PRINT EXAMINER Ot C77.3 SEC AND UNSP MALIG NEOPLASM OF [place] AN 03/30/2019 EUGENIA YI LATENT PRINT EXAMINER Ot Z79.899 OTHER [facility] (CURRENT) DRUG THERAPY 03/30/2019 EUGENIA YI LATENT PRINT EXAMINER Ot Z85.3 PERSONAL HISTORY OF MALIGNANT NEOPLASM O 03/30/2019 EUGENIA YI LATENT PRINT EXAMINER Ot Z92.21 PERSONAL HISTORY OF ANTINEOPLASTIC CHEMO 03/30/2019 EUGENIA YI LATENT PRINT EXAMINER Ot Z92.3 PERSONAL HISTORY OF IRRADIATION 03/30/2019 KARLA TRAVIS MD Ot 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, UNSPECIFIED 03/30/2019 KARLA TRAVIS MD Ot E78.4 OTHER HYPERLIPIDEMIA 03/30/2019 KARLA TRAVIS MD Ot I10 ESSENTIAL (PRIMARY) HYPERTENSION 03/30/2019 KARLA TRAVIS MD Ot Z79.8 99 OTHER [facility] (CURRENT) DRUG THERAPY 03/30/2019 VERNON HOFFMAN [facility], ALI FACP CCDS Ot C43.59 MALIGNANT MELANOMA OF OTHER PART OF TRUN 03/30/2019 VERNON HOFFMAN [facility], ALI FACP CCDS Ot E78.4 OTHER HYPERLIPIDEMIA 03/30/2019 VRENON HOFFMAN [facility], ALI FACP CCDS Ot I25.10 ATHSCL HEART DISEASE OF [place] CORONARY 03/30/2019 VERNON HOFFMAN [facility], ALI FACP CCDS Ot I65.23 OCCLUSION AND STENOSIS OF BILATERAL [place] 03/30/2019 VERNON HOFFMAN [facility], ALI FACP CCDS Ot N18.3 CHRONIC KIDNEY DISEASE, STAGE 3 (MODERAT 03/30/2019 EUGENIA YI LATENT PRINT EXAMINER Ot C43.59 MALIGNANT MELANOMA OF OTHER PART OF TRUN 03/30/2019 EUGENIA YIP Ot C77.3 SEC AND UNSP MALIG NEOPLASM OF [place] AN 03/30/2019 EUGENIA YI LATENT PRINT EXAMINER Ot Z79.899 OTHER [facility] (CURRENT) DRUG THERAPY 03/30/2019 EUGENIA YI LATENT PRINT EXAMINER Ot Z85.3 PERSONAL HISTORY OF MALIGNANT NEOPLASM O 03/30/2019 EUGENIA YI LATENT PRINT EXAMINER Ot Z92.21 PERSONAL HISTORY OF ANTINEOPLASTIC CHEMO 03/30/2019 EUGENIA YI LATENT PRINT EXAMINER Ot Z92.3 PERSONAL HISTORY OF IRRADIATION 03/30/2019 EUGENIA YI LATENT PRINT EXAMINER Ot C43.59 MALIGNANT MELANOMA OF OTHER PART OF TRUN 03/30/2019 EUGENIA YIP Ot C77.3 SEC AND UNSP MALIG NEOPLASM OF [place] 03/30/2019 FRANCISCO ROLON Ot C77.3 SEC AND UNSP MALIG NEOPLASM OF [place] AN 03/30/2019 FRANCISCO ROLON Ot M62.9 DISORDER OF MUSCLE, UNSPECIFIED 03/30/2019 FRANCISCO ROLON Ot R94.8 ABNORMAL RESULTS OF FUNCTION STUDIES OF 03/30/2019 KARLA TRAVIS MD Ot R53.8 3 OTHER FATIGUE 03/30/2019 EUGENIA YI S LATENT PRINT EXAMINER Ot E80.6 OTHER DISORDERS OF BILIRUBIN METABOLISM 03/30/2019 YIEUGENIA Veras S LATENT PRINT EXAMINER Ot C43.59 MALIGNANT MELANOMA OF OTHER PART OF TRUN 03/30/2019 EUGENIA YI S LATENT PRINT EXAMINER Ot E80.6 OTHER DISORDERS OF BILIRUBIN METABOLISM 03/30/2019 FRANCISCO ROLON Ot C43.59 MALIGNANT MELANOMA OF OTHER PART OF TRUN 03/30/2019 EUGENIA YI S LATENT PRINT EXAMINER Ot N 63 UNSPECIFIED LUMP IN BREAST 03/30/2019 EUGENIA YI S LATENT PRINT EXAMINER Ot Z85.3 PERSONAL HISTORY OF MALIGNANT NEOPLASM O 03/30/2019 EUGENIA YI S LATENT PRINT EXAMINER Ot C43.59 MALIGNANT MELANOMA OF OTHER PART OF TRUN 03/30/2019 EUGENIA YI LATENT PRINT EXAMINER Ot R26.9 UNSPECIFIED ABNORMALITIES OF GAIT AND MO 03/30/2019 EUGENIA YI S LATENT PRINT EXAMINER Ot R 42 DIZZINESS AND GIDDINESS 03/30/2019 EUGENIA YI S LATENT PRINT EXAMINER Ot R 51 HEADACHE 03/30/2019 KARLA TRAVIS MD Ot C43.5 9 MALIGNANT MELANOMA OF OTHER PART OF TRUN 03/30/2019 KARLA TRAVIS MD Ot R42 DIZZINESS AND GIDDINESS 03/30/2019 KARLA TRAVIS MD Ot Z85.3 PERSONAL HISTORY OF MALIGNANT NEOPLASM O 03/30/2019 KARLA TRAVIS MD Ot E03.9 HYPOTHYROIDISM, UNSPECIFIED 03/30/2019 EUGENIA YI S LATENT PRINT EXAMINER Ot C43.59 MALIGNANT MELANOMA OF OTHER PART OF TRUN 03/30/2019 KARLA TRAVIS MD Ot E78.5 HYPERLIPIDEMIA, UNSPECIFIED 03/30/2019 VERNON HOFFMAN FACKam, ALI FACP CCDS Ot E78.4 OTHER HYPERLIPIDEMIA 03/30/2019 VERNON HOFFMAN FACKam, ALI FACP CCDS Ot I10 ESSENTIAL (PRIMARY) HYPERTENSION 03/30/2019 VERNON HOFFMAN FACC, ALI FACP CCDS Ot I25.10 ATHSCL HEART DISEASE OF [place] CORONARY 03/30/2019 VERNON HOFFMAN FACKam, ALI FACP CCDS Ot I65.23 OCCLUSION AND STENOSIS OF BILATERAL [place] 03/30/2019 VERNON HOFFMAN [facility] CCD[facility] Ot R06.09 OTHER FORMS OF DYSPNEA 03/30/2019 VERNON HOFFMAN [facility], [facility] FACP CCDS Ot R53.1 WEAKNESS 03/30/2019 VERNON HOFFMAN [facility] CCD[facility] Ot E78.4 OTHER HYPERLIPIDEMIA 03/30/2019 VERNON HOFFMAN [facility], ALI FACP CCDS Ot I10 ESSENTIAL (PRIMARY) HYPERTENSION 03/30/2019 VERNON HOFFMAN [facility], [facility] CCD[facility] Ot I25.10 ATHSCL HEART DISEASE OF [place] CORONARY 03/30/2019 VERNON HOFFMAN [facility], ALI FACP CCDS Ot I65.23 OCCLUSION AND STENOSIS OF BILATERAL [place] 03/30/2019 VERNON HOFFMAN [facility] CCDS Ot R06.09 OTHER FORMS OF DYSPNEA 03/30/2019 VERNON HOFFMAN [facility] CCD[facility] Ot R53.1 WEAKNESS 03/30/2019 EUGENIA YI LATENT PRINT EXAMINER Ot C43.59 MALIGNANT MELANOMA OF OTHER PART OF TRUN 03/30/2019 EUGENIA YI LATENT PRINT EXAMINER Ot G93.89 OTHER SPECIFIED DISORDERS OF BRAIN 03/30/2019 EUGENIA YI LATENT PRINT EXAMINER Ot R 42 DIZZINESS AND GIDDINESS 03/30/2019 EUGENIA YI LATENT PRINT EXAMINER Ot 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, UNSPECIFIED 03/30/2019 EUGENIA YI LATENT PRINT EXAMINER Ot R91.1 SOLITARY PULMONARY NODULE 03/30/2019 EUGENIA YI LATENT PRINT EXAMINER Ot Z85.820 PERSONAL HISTORY OF MALIGNANT MELANOMA O 03/30/2019 KARLA TRAVIS MD Ot E03.9 HYPOTHYROIDISM, UNSPECIFIED 03/30/2019 KARLA TRAVIS MD Ot Z79.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 03/30/2019 EUGENIA YI LATENT PRINT EXAMINER Ot C77.3 SEC AND UNSP MALIG NEOPLASM OF [place]ILL[place] AN 03/30/2019 EUGENIA YI LATENT PRINT EXAMINER Ot Z85.820 PERSONAL HISTORY OF MALIGNANT MELANOMA O 03/30/2019 KARLA TRAVIS MD Ot 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, UNSP WITHOUT THYROTOXIC 03/30/2019 KARLA TRAVIS MD Ot E78.4 OTHER HYPERLIPIDEMIA 03/30/2019 KARLA TRAVIS MD Ot I10 ESSENTIAL (PRIMARY) HYPERTENSION 03/30/2019 GORDON WEATHERS MD, Ot C43.59 MALIGNANT MELANOMA OF OTHER PART OF TRUN 03/30/2019 GORDON WEATHERS MD Ot C50.919 MALIGNANT NEOPLASM OF UNSP SITE OF UNSPE 03/30/2019 GORDON WEATHERS MD Ot R10.31 RIGHT LOWER QUADRANT PAIN 03/30/2019 GORDON WEATHERS MD Ot R91.1 SOLITARY PULMONARY NODULE 03/30/2019 DARRYL POPE MD Ot H93.3X9 DISORDERS OF UNSPECIFIED ACOUSTIC NERVE 03/30/2019 DARRYL POPE MD Ot I63.89 OTHER CEREBRAL INFARCTION 03/30/2019 DARRYL POPE MD, Ot Z01.812 ENCOUNTER FOR PREPROCEDURAL LABORATORY E 03/30/2019 DARRYL POPE MD Ot Z85.3 PERSONAL HISTORY OF MALIGNANT NEOPLASM O 03/30/2019 DARRYL POPE MD Ot Z85.820 PERSONAL HISTORY OF MALIGNANT MELANOMA O 03/30/2019 EUGENIA YI Ot C43.59 MALIGNANT MELANOMA OF OTHER PART OF TRUN 03/30/2019 EUGENIA YI Ot C77.3 SEC AND UNSP MALIG NEOPLASM OF [place] 03/30/2019 EUGENIA YIP Ot L98.9 DISORDER OF THE SKIN AND SUBCUTANEOUS TI 03/30/2019 EUGENIA YIP Ot R91.8 OTHER NONSPECIFIC ABNORMAL FINDING OF JEAN 03/30/2019 EUGENIA YIP Ot Z01.89 ENCOUNTER FOR OTHER SPECIFIED SPECIAL EX 03/30/2019 FRANCISCO ROLON Ot C43.59 MALIGNANT MELANOMA OF OTHER PART OF TRUN 03/30/2019 FRANCISCO ROLON Ot C77.3 SEC AND UNSP MALIG NEOPLASM OF [place] 03/30/2019 FRANCISCO ROLON Ot C79.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 03/30/2019 FRANCISCO ROLON Ot E03.9 HYPOTHYROIDISM, UNSPECIFIED 03/30/2019 FRANCISCO ROLON Ot E78.5 HYPERLIPIDEMIA, UNSPECIFIED 03/30/2019 FRANCISCO ROLON Ot I12.9 HYPERTENSIVE CHRONIC KIDNEY DISEASE W ST 03/30/2019 FRANCISCO ROLON Ot I25.10 ATHSCL HEART DISEASE OF [place] CORONARY 03/30/2019 FRANCISCO ROLON Ot N18.3 CHRONIC KIDNEY DISEASE, STAGE 3 (MODERAT 03/30/2019 FRANCISCO ROLON Ot 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 03/30/2019 FRANCISCO ROLON Tarah Ot Z85.3 PERSONAL HISTORY OF MALIGNANT NEOPLASM O 03/30/2019 FRANCISCO ROLON Tarah Ot Z92.21 PERSONAL HISTORY OF ANTINEOPLASTIC CHEMO 03/30/2019 FRANCISCO ROLON Tarah Ot Z92.3 PERSONAL HISTORY OF IRRADIATION 03/30/2019 DARRYL POPE MD Ot 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, UNSPECIFIED 03/30/2019 DARRYL POPE MD Ot H81.90 UNSPECIFIED DISORDER OF VESTIBULAR FUNCT 03/30/2019 DARRYL POPE MD, Ot Z85.3 PERSONAL HISTORY OF MALIGNANT NEOPLASM O 03/30/2019 DARRYL POPE MD Ot Z95.1 PRESENCE OF AORTOCORONARY BYPASS GRAFT 03/30/2019 KARLA TRAVIS MD Ot Z01.8 9 ENCOUNTER FOR OTHER SPECIFIED SPECIAL EX 04/04/2019 ROB REYES DO Ot E78. 5 HYPERLIPIDEMIA, UNSPECIFIED 04/04/2019 ROB REYES DO Ot F32. 9 MAJOR DEPRESSIVE DISORDER, SINGLE EPISOD 04/04/2019 ROB REYES DO Ot G62. 9 POLYNEUROPATHY, UNSPECIFIED 04/04/2019 ROB REYES DO Ot I10 ESSENTIAL (PRIMARY) HYPERTENSION 04/04/2019 ROB REYES DO Ot I25. 10 ATHSCL HEART DISEASE OF [place] CORONARY 04/04/2019 ROB REYES DO Ot I73. 9 PERIPHERAL VASCULAR DISEASE, UNSPECIFIED 04/04/2019 ROB REYES DO Ot I77. 9 DISORDER OF ARTERIES AND ARTERIOLES, UNS 04/04/2019 ROB REYES DO Ot I87. 2 VENOUS INSUFFICIENCY (CHRONIC) (PERIPHER 04/04/2019 ROB REYES DO Ot K21. 9 GASTRO-ESOPHAGEAL REFLUX DISEASE WITHOUT 04/04/2019 ROB REYES DO Ot K31. 7 POLYP OF STOMACH AND DUODENUM 04/04/2019 ROB REYES DO Ot K31. 89 OTHER DISEASES OF STOMACH AND DUODENUM 04/04/2019 ROB REYES DO Ot R13. 10 DYSPHAGIA, UNSPECIFIED 04/04/2019 ROB REYES DO Ot R22. 43 LOCALIZED SWELLING, MASS AND LUMP, LOWER 04/04/2019 ROB REYES DO Ot R26. 9 UNSPECIFIED ABNORMALITIES OF GAIT AND MO 04/04/2019 ROB REYES DO Ot Z79. 82 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) USE OF ASPIRIN 04/04/2019 ROB REYES DO Ot Z79.899 OTHER [facility] (CURRENT) DRUG THERAPY 04/04/2019 ROB REYES DO Ot Z80. 9 FAMILY HISTORY OF MALIGNANT NEOPLASM, UN 04/04/2019 ROB REYES DO Ot Z82. 3 FAMILY HISTORY OF STROKE 04/04/2019 ROB REYES DO Ot Z82. 49 FAMILY HX OF ISCHEM HEART DIS AND OTH DI 04/04/2019 ROB REYES DO Ot Z88. 1 ALLERGY STATUS TO OTHER ANTIBIOTIC AGENT 04/04/2019 ROB REYES DO Ot Z88. 5 ALLERGY STATUS TO NARCOTIC AGENT STATUS 04/04/2019 ROB REYES DO Ot Z88. 7 ALLERGY STATUS TO SERUM AND VACCINE STAT 04/04/2019 ROB REYES DO Ot Z88. 8 ALLERGY STATUS TO OTH DRUG/MEDS/BIOL SUB 04/04/2019 ROB REYES DO Ot Z95. 1 PRESENCE OF AORTOCORONARY BYPASS GRAFT 04/04/2019 ROB REYES DO Ot E78. 5 HYPERLIPIDEMIA, UNSPECIFIED 04/04/2019 ROB REYES DO Ot F32. 9 MAJOR DEPRESSIVE DISORDER, SINGLE EPISOD 04/04/2019 ROB REYES DO Ot G62. 9 POLYNEUROPATHY, UNSPECIFIED 04/04/2019 ROB REYES DO Ot I10 ESSENTIAL (PRIMARY) HYPERTENSION 04/04/2019 ROB REYES DO Ot I25. 10 ATHSCL HEART DISEASE OF [place] CORONARY 04/04/2019 ROB REYES DO Ot I73. 9 PERIPHERAL VASCULAR DISEASE, UNSPECIFIED 04/04/2019 ROB REYES DO Ot I77. 9 DISORDER OF ARTERIES AND ARTERIOLES, UNS 04/04/2019 ROB REYES DO Ot I87. 2 VENOUS INSUFFICIENCY (CHRONIC) (PERIPHER 04/04/2019 ROB REYES DO Ot K21. 9 GASTRO-ESOPHAGEAL REFLUX DISEASE WITHOUT 04/04/2019 ROB REYES DO Ot K31. 7 POLYP OF STOMACH AND DUODENUM 04/04/2019 ROB REYES DO Ot K31. 89 OTHER DISEASES OF STOMACH AND DUODENUM 04/04/2019 ROB REYES DO Ot R13. 10 DYSPHAGIA, UNSPECIFIED 04/04/2019 ROB REYES DO Ot R22. 43 LOCALIZED SWELLING, MASS AND LUMP, LOWER 04/04/2019 ROB REYES DO Ot R26. 9 UNSPECIFIED ABNORMALITIES OF GAIT AND MO 04/04/2019 ROB REYES DO Ot Z79. 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 9 FAMILY HISTORY OF MALIGNANT NEOPLASM, UN 04/04/2019 ROB REYES DO Ot Z82. 3 FAMILY HISTORY OF STROKE 04/04/2019 ROB REYES DO Ot Z82. 49 FAMILY HX OF ISCHEM HEART DIS AND OTH DI 04/04/2019 ROB REYES DO Ot Z88. 1 ALLERGY STATUS TO OTHER ANTIBIOTIC AGENT 04/04/2019 ROB REYES DO Ot Z88. 5 ALLERGY STATUS TO NARCOTIC AGENT STATUS 04/04/2019 ROB REYES DO Ot Z88. 7 ALLERGY STATUS TO SERUM AND VACCINE STAT 04/04/2019 ROB REYES DO Ot Z88. 8 ALLERGY STATUS TO OT DRUG/MEDS/BIOL SUB 04/04/2019 ROB REYES DO Ot Z95. 1 PRESENCE OF AORTOCORONARY BYPASS GRAFT 04/06/2019 ROB REYES DO Ot E78. 5 HYPERLIPIDEMIA, UNSPECIFIED 04/06/2019 ROB REYES DO Ot F32. 9 MAJOR DEPRESSIVE DISORDER, SINGLE EPISOD 04/06/2019 ROB REYES DO Ot G62. 9 POLYNEUROPATHY, UNSPECIFIED 04/06/2019 ROB REYES DO Ot I10 ESSENTIAL (PRIMARY) HYPERTENSION 04/06/2019 ROB REYES DO Ot I25. 10 ATHSCL HEART DISEASE OF [place] CORONARY 04/06/2019 ROB REYES DO Ot I73. 9 PERIPHERAL VASCULAR DISEASE, UNSPECIFIED 04/06/2019 ROB REYES DO Ot I77. 9 DISORDER OF ARTERIES AND ARTERIOLES, UNS 04/06/2019 ROB REYES DO Ot I87. 2 VENOUS INSUFFICIENCY (CHRONIC) (PERIPHER 04/06/2019 ROB REYES DO Ot K21. 9 GASTRO-ESOPHAGEAL REFLUX DISEASE WITHOUT 04/06/2019 ROB ERYES DO Ot K31. 7 POLYP OF STOMACH AND DUODENUM 04/06/2019 ROB REYES DO Ot K31. 89 OTHER DISEASES OF STOMACH AND DUODENUM 04/06/2019 ROB REYES DO Ot R13. 10 DYSPHAGIA, UNSPECIFIED 04/06/2019 ROB REYES DO Ot R22. 43 LOCALIZED SWELLING, MASS AND LUMP, LOWER 04/06/2019 ROB REYES DO Ot R26. 9 UNSPECIFIED ABNORMALITIES OF GAIT AND MO 04/06/2019 ROB REYES DO Ot Z79. 82 [facility] (CURRENT) USE OF ASPIRIN 04/06/2019 ROB REYES DO Ot Z79.899 OTHER [facility] (CURRENT) DRUG THERAPY 04/06/2019 ROB REYES DO Ot Z80. 9 FAMILY HISTORY OF MALIGNANT NEOPLASM, UN 04/06/2019 ROB REYES DO Ot Z82. 3 FAMILY HISTORY OF STROKE 04/06/2019 ROB REYES DO Ot Z82. 49 FAMILY HX OF ISCHEM HEART DIS AND OTH DI 04/06/2019 ROB REYES DO Ot Z88. 1 ALLERGY STATUS TO OTHER ANTIBIOTIC AGENT 04/06/2019 ROB REYES DO Ot Z88. 5 ALLERGY STATUS TO NARCOTIC AGENT STATUS 04/06/2019 ROB REYES DO Ot Z88. 7 ALLERGY STATUS TO SERUM AND VACCINE STAT 04/06/2019 ROB REYES DO Ot Z88. 8 ALLERGY STATUS TO OTH DRUG/MEDS/BIOL SUB 04/06/2019 ROB REYES DO Ot Z95. 1 PRESENCE OF AORTOCORONARY BYPASS GRAFT 04/06/2019 DARRYL POPE MD, Ot 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, UNSPECIFIED 04/06/2019 DARRYL POPE MD Ot H81.90 UNSPECIFIED DISORDER OF VESTIBULAR FUNCT 04/06/2019 NIKO MD, DARRYL M Ot Z85.3 PERSONAL HISTORY OF MALIGNANT NEOPLASM O 04/06/2019 NIKO HOFFMAN, DARRYL Bledsoe Ot Z95.1 PRESENCE OF AORTOCORONARY BYPASS GRAFT 04/07/2019 EUGENIA YI LATENT PRINT EXAMINER Ot 172.5 MALIG MELANOMA TRUNK 04/07/2019 EUGENIA YI LATENT PRINT EXAMINER Ot 724.2 LUMBAGO 04/07/2019 EUGENIA YI LATENT PRINT EXAMINER Ot 781.2 ABNORMALITY OF GAIT 04/07/2019 EUGENIA YI LATENT PRINT EXAMINER Ot 784.0 HEADACHE 04/07/2019 EUGENIA YI LATENT PRINT EXAMINER Ot V10.3 HX OF BREAST MALIGNANCY 04/07/2019 EUGENIA YI LATENT PRINT EXAMINER Ot V15.3 HX OF IRRADIATION 04/07/2019 EUGENIA YI LATENT PRINT EXAMINER Ot V58.69 OT MED,LT,CURRENT USE 04/07/2019 EUGENIA YI LATENT PRINT EXAMINER Ot V87.41 PERSONAL HISTORY OF ANTINEOPLASTIC CHEMO 04/07/2019 EUGENIA YI LATENT PRINT EXAMINER Ot 172.9 MALIG MELANOMA SKIN NOS 04/07/2019 EUGENIA YI LATENT PRINT EXAMINER Ot 781.2 ABNORMALITY OF GAIT 04/07/2019 EUGENIA YI LATENT PRINT EXAMINER Ot 784.0 HEADACHE 04/07/2019 EUGENIA YI LATENT PRINT EXAMINER Ot 794.9 ABN FUNCTION STUDY NEC 04/07/2019 EUGENIA YI S LATENT PRINT EXAMINER Ot V76.12 OTH SCREEN MAMMO-MALIGN NEOPLASM OF [place] 04/07/2019 Ot 172.9 DAVID G MELANOMA SKIN NOS 04/07/2019 Ot V76.12 OTH SCREEN MAMMO- MALIGN NEOPLASM OF [place] 04/07/2019 FRANCISCO ROLON N Ot 172.9 MALIG MELANOMA SKIN NOS 04/07/2019 FRANCISCO ROLON N Ot V10.3 HX OF BREAST MALIGNANCY 04/07/2019 ANGY HOFFMAN, KARLA Horowitz Ot 719.4 7 JOINT PAIN-ANKLE 04/07/2019 EUGENIA YI LATENT PRINT EXAMINER Ot 172.5 MALIG MELANOMA TRUNK 04/07/2019 EUGENIA YI LATENT PRINT EXAMINER Ot V10.3 HX OF BREAST MALIGNANCY 04/07/2019 EUGENIA YI LATENT PRINT EXAMINER Ot V15.3 HX OF IRRADIATION 04/07/2019 EUGENIA YI LATENT PRINT EXAMINER Ot V58.69 OTH MED,LT,CURRENT USE 04/07/2019 EUGENIA YI LATENT PRINT EXAMINER Ot V87.41 PERSONAL HISTORY OF ANTINEOPLASTIC CHEMO 04/07/2019 EUGENIA YI LATENT PRINT EXAMINER Ot 172.9 MALIG MELANOMA SKIN NOS 04/07/2019 EUGENIA YI LATENT PRINT EXAMINER Ot 174.9 MALIGN NEOPL BREAST NOS 04/07/2019 EUGENIA YI LATENT PRINT EXAMINER Ot 724.5 BACKACHE NOS 04/07/2019 EUGENIA YI LATENT PRINT EXAMINER Ot 172.9 MALIG MELANOMA SKIN NOS 04/07/2019 EUGENIA YI LATENT PRINT EXAMINER Ot 174.9 MALIGN NEOPL BREAST NOS 04/07/2019 EUGENIA YI LATENT PRINT EXAMINER Ot 724.5 BACKACHE NOS 04/07/2019 FRANCISCO ROLON N Ot 172.9 MALIG MELANOMA SKIN NOS 04/07/2019 FRANCISCO ROLON N Ot 786.6 CHEST SWELLING/MASS/LUMP 04/07/2019 EUGENIA YI LATENT PRINT EXAMINER Ot 172.9 MALIG MELANOMA SKIN NOS 04/07/2019 EUGENIA YI LATENT PRINT EXAMINER Ot V58.69 OTH MED,LT,CURRENT USE 04/07/2019 EUGENIA YI LATENT PRINT EXAMINER Ot V58.83 ENCOUNTER FOR THERAPEUTIC DRUG MONITORIN 04/07/2019 EUGENIA YI LATENT PRINT EXAMINER Ot 172.5 MALIG MELANOMA TRUNK 04/07/2019 EUGENIA YI LATENT PRINT EXAMINER Ot V10.3 HX OF BREAST MALIGNANCY 04/07/2019 EUGENIA YI LATENT PRINT EXAMINER Ot V15.3 HX OF IRRADIATION 04/07/2019 EUGENIA YI LATENT PRINT EXAMINER Ot V58.69 OTH MED,LT,CURRENT USE 04/07/2019 EUGENIA YI LATENT PRINT EXAMINER Ot V87.41 PERSONAL HISTORY OF ANTINEOPLASTIC CHEMO 04/07/2019 EUGENIA YI LATENT PRINT EXAMINER Ot 172.5 MALIG MELANOMA TRUNK 04/07/2019 EUGENIA YI LATENT PRINT EXAMINER Ot 199.1 MALIGNANT NEOPLASM NOS 04/07/2019 EUGENIA YI LATENT PRINT EXAMINER Ot 786.2 COUGH 04/07/2019 EUGENIA YI LATENT PRINT EXAMINER Ot V10.3 HX OF BREAST MALIGNANCY 04/07/2019 EUGENIA YI LATENT PRINT EXAMINER Ot V15.3 HX OF IRRADIATION 04/07/2019 EUGENIA YI LATENT PRINT EXAMINER Ot V58.69 OTH MED,LT,CURRENT USE 04/07/2019 EUGENIA YI LATENT PRINT EXAMINER Ot V87.41 PERSONAL HISTORY OF ANTINEOPLASTIC CHEMO 04/07/2019 EUGENIA YI S LATENT PRINT EXAMINER Ot 172.5 MALIG MELANOMA TRUNK 04/07/2019 EUGENIA YI S LATENT PRINT EXAMINER Ot 199.1 MALIGNANT NEOPLASM NOS 04/07/2019 EUGENIA YI LATENT PRINT EXAMINER Ot 511.9 PLEURAL EFFUSION NOS 04/07/2019 EUGENIA YI LATENT PRINT EXAMINER Ot V10.3 HX OF BREAST MALIGNANCY 04/07/2019 EUGENIA YI S LATENT PRINT EXAMINER Ot V15.3 HX OF IRRADIATION 04/07/2019 EUGENIA YI LATENT PRINT EXAMINER Ot V58.69 OTH MED,LT,CURRENT USE 04/07/2019 EUGENIA YI LATENT PRINT EXAMINER Ot V87.41 PERSONAL HISTORY OF ANTINEOPLASTIC CHEMO 04/07/2019 EUGENIA YI LATENT PRINT EXAMINER Ot 780.60 FEVER, UNSPECIFIED 04/07/2019 EUGENIA YI LATENT PRINT EXAMINER Ot 786.2 COUGH 04/07/2019 EUGENIA YI LATENT PRINT EXAMINER Ot 172.5 MALIG MELANOMA TRUNK 04/07/2019 EUGENIA YI LATENT PRINT EXAMINER Ot 199.1 MALIGNANT NEOPLASM NOS 04/07/2019 EUGENIA YI LATENT PRINT EXAMINER Ot V10.3 HX OF BREAST MALIGNANCY 04/07/2019 EUGENIA YI LATENT PRINT EXAMINER Ot V15.3 HX OF IRRADIATION 04/07/2019 EUGENIA YI LATENT PRINT EXAMINER Ot V58.69 OTH MED,LT,CURRENT USE 04/07/2019 EUGENIA YI LATENT PRINT EXAMINER Ot V87.41 PERSONAL HISTORY OF ANTINEOPLASTIC CHEMO 04/07/2019 EUGENIA YI LATENT PRINT EXAMINER Ot 414.00 CORON ATHEROSCLER NOS TYPE VESSEL, NATIV 04/07/2019 EUGENIA YI LATENT PRINT EXAMINER Ot V58.69 OTH MED,LT,CURRENT USE 04/07/2019 EUGENIA YI LATENT PRINT EXAMINER Ot V58.83 ENCOUNTER FOR THERAPEUTIC DRUG MONITORIN 04/07/2019 KARLA TRAVIS MD Ot 272.4 HYPERLIPIDEMIA NEC/NOS 04/07/2019 KARLA TRAVIS MD Ot 401.9 HYPERTENSION NOS 04/07/2019 KARLA TRAVIS MD Ot V58.6 9 OTH MED,LT,CURRENT USE 04/07/2019 JUANITO YITOD Rito LATENT PRINT EXAMINER Ot 172.5 MALIG MELANOMA TRUNK 04/07/2019 EUGENIA YI LATENT PRINT EXAMINER Ot 199.1 MALIGNANT NEOPLASM NOS 04/07/2019 JUANITO YITOD Rito LATENT PRINT EXAMINER Ot 511.9 PLEURAL EFFUSION NOS 04/07/2019 EUGENIA YI LATENT PRINT EXAMINER Ot V10.3 HX OF BREAST MALIGNANCY 04/07/2019 EUGENIA YIP Ot V15.3 HX OF IRRADIATION 04/07/2019 JUANITO YITOD Rito LATENT PRINT EXAMINER Ot V58.69 OTH MED,LT,CURRENT USE 04/07/2019 JUANITO YITOD Rito LATENT PRINT EXAMINER Ot V87.41 PERSONAL HISTORY OF ANTINEOPLASTIC CHEMO 04/07/2019 EUGENIA YIP Ot 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, UNSPECIFIED 04/07/2019 Ot C43.9 DAVID GNANT MELANOMA OF SKIN, UNSPECIFIED 04/07/2019 EUGENIA YI LATENT PRINT EXAMINER Ot 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, UNSPECIFIED 04/07/2019 EUGENIA YI LATENT PRINT EXAMINER Ot C43.59 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 04/07/2019 EUGENIA IY LATENT PRINT EXAMINER Ot C43.59 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 04/07/2019 EUGENIA YI LATENT PRINT EXAMINER Ot Z79.899 OTHER [facility] (CURRENT) DRUG THERAPY 04/07/2019 EUGENIA YI LATENT PRINT EXAMINER Ot Z85.3 PERSONAL HISTORY OF MALIGNANT NEOPLASM O 04/07/2019 EUGENIA YI LATENT PRINT EXAMINER Ot Z92.21 PERSONAL HISTORY OF ANTINEOPLASTIC CHEMO 04/07/2019 EUGENIA YI LATENT PRINT EXAMINER Ot Z92.3 PERSONAL HISTORY OF IRRADIATION 04/07/2019 EUGENIA YI LATENT PRINT EXAMINER Ot C43.59 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 04/07/2019 EUGENIA YI LATENT PRINT EXAMINER Ot Z79.899 OTHER [facility] (CURRENT) DRUG THERAPY 04/07/2019 EUGENIA YI LATENT PRINT EXAMINER Ot Z85.3 PERSONAL HISTORY OF MALIGNANT NEOPLASM O 04/07/2019 EUGENIA YI LATENT PRINT EXAMINER Ot Z92.21 PERSONAL HISTORY OF ANTINEOPLASTIC CHEMO 04/07/2019 EUGENIA YI LATENT PRINT EXAMINER Ot Z92.3 PERSONAL HISTORY OF IRRADIATION 04/07/2019 EUGENIA YI LATENT PRINT EXAMINER Ot C43.59 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59 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 04/07/2019 EUGENIA YIP Ot C77.3 SEC AND UNSP MALIG NEOPLASM OF [place] 04/07/2019 EUGENIA YI LATENT PRINT EXAMINER Ot 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 04/07/2019 EUGENIA YI LATENT PRINT EXAMINER Ot Z85.3 PERSONAL HISTORY OF MALIGNANT NEOPLASM O 04/07/2019 EUGENIA YI LATENT PRINT EXAMINER Ot Z92.21 PERSONAL HISTORY OF ANTINEOPLASTIC CHEMO 04/07/2019 EUGENIA YI LATENT PRINT EXAMINER Ot Z92.3 PERSONAL HISTORY OF IRRADIATION 04/07/2019 EUGENIA YI LATENT PRINT EXAMINER Ot C43.59 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 04/07/2019 EUGENIA YI LATENT PRINT EXAMINER Ot C77.3 SEC AND UNSP MALIG NEOPLASM OF [place] 04/07/2019 EUGENIA YI LATENT PRINT EXAMINER Ot 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 04/07/2019 EUGENIA YI LATENT PRINT EXAMINER Ot Z85.3 PERSONAL HISTORY OF MALIGNANT NEOPLASM O 04/07/2019 EUGENIA YI LATENT PRINT EXAMINER Ot Z92.21 PERSONAL HISTORY OF ANTINEOPLASTIC CHEMO 04/07/2019 EUGENIA YI LATENT PRINT EXAMINER Ot Z92.3 PERSONAL HISTORY OF IRRADIATION 04/07/2019 EUGENIA YI LATENT PRINT EXAMINER Ot C43.59 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 04/07/2019 JUANITO YITOD Veras LATENT PRINT EXAMINER Ot C43.59 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 04/07/2019 EUGENIA YIP Ot C77.3 SEC AND UNSP MALIG NEOPLASM OF [place] 04/07/2019 EGUENIA YI LATENT PRINT EXAMINER Ot 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 04/07/2019 EUGENIA YI LATENT PRINT EXAMINER Ot Z85.3 PERSONAL HISTORY OF MALIGNANT NEOPLASM O 04/07/2019 EUGENIA YI LATENT PRINT EXAMINER Ot Z92.21 PERSONAL HISTORY OF ANTINEOPLASTIC CHEMO 04/07/2019 EUGENIA YI LATENT PRINT EXAMINER Ot Z92.3 PERSONAL HISTORY OF IRRADIATION 04/07/2019 EUGENIA YI LATENT PRINT EXAMINER Ot C43.59 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 04/07/2019 EUGENIA YI LATENT PRINT EXAMINER Ot C77.3 SEC AND UNSP MALIG NEOPLASM OF [place] 04/07/2019 EUGENIA YI LATENT PRINT EXAMINER Ot Z79.899 OTHER [facility] (CURRENT) DRUG THERAPY 04/07/2019 EUGENIA YI LATENT PRINT EXAMINER Ot Z85.3 PERSONAL HISTORY OF MALIGNANT NEOPLASM O 04/07/2019 EUGENIA YI LATENT PRINT EXAMINER Ot Z92.21 PERSONAL HISTORY OF ANTINEOPLASTIC CHEMO 04/07/2019 EUGENIA YI S LATENT PRINT EXAMINER Ot Z92.3 PERSONAL HISTORY OF IRRADIATION 04/07/2019 EUGENIA YI LATENT PRINT EXAMINER Ot C43.59 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 04/07/2019 EUGENIA YI LATENT PRINT EXAMINER Ot C77.3 SEC AND UNSP MALIG NEOPLASM OF [place] 04/07/2019 EUGENIA YI LATENT PRINT EXAMINER Ot 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 04/07/2019 EUGENIA YI LATENT PRINT EXAMINER Ot Z85.3 PERSONAL HISTORY OF MALIGNANT NEOPLASM O 04/07/2019 EUGENIA YI S LATENT PRINT EXAMINER Ot Z92.21 PERSONAL HISTORY OF ANTINEOPLASTIC CHEMO 04/07/2019 EUGENIA YI LATENT PRINT EXAMINER Ot Z92.3 PERSONAL HISTORY OF IRRADIATION 04/07/2019 EUGENIA YI LATENT PRINT EXAMINER Ot C43.59 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 04/07/2019 EUGENIA YI LATENT PRINT EXAMINER Ot C77.3 SEC AND UNSP MALIG NEOPLASM OF [place] 04/07/2019 EUGENIA YI LATENT PRINT EXAMINER Ot Z79.899 OTHER [facility] (CURRENT) DRUG THERAPY 04/07/2019 EUGENIA YI LATENT PRINT EXAMINER Ot Z85.3 PERSONAL HISTORY OF MALIGNANT NEOPLASM O 04/07/2019 EUGENIA YI LATENT PRINT EXAMINER Ot Z92.21 PERSONAL HISTORY OF ANTINEOPLASTIC CHEMO 04/07/2019 YIEUGENIA Veras LATENT PRINT EXAMINER Ot Z92.3 PERSONAL HISTORY OF IRRADIATION 04/07/2019 EUGENIA YI LATENT PRINT EXAMINER Ot M79.89 OTHER SPECIFIED SOFT TISSUE DISORDERS 04/07/2019 YI EUGENIA Veras LATENT PRINT EXAMINER Ot C43.59 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 04/07/2019 EUGENIA YI LATENT PRINT EXAMINER Ot C77.3 SEC AND UNSP MALIG NEOPLASM OF [place] AN 04/07/2019 EUGENIA YI LATENT PRINT EXAMINER Ot 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 04/07/2019 YI EUGENIA Veras LATENT PRINT EXAMINER Ot Z85.3 PERSONAL HISTORY OF MALIGNANT NEOPLASM O 04/07/2019 EUGENIA YI LATENT PRINT EXAMINER Ot Z92.21 PERSONAL HISTORY OF ANTINEOPLASTIC CHEMO 04/07/2019 KASSIDY EUGENIA Veras LATENT PRINT EXAMINER Ot Z92.3 PERSONAL HISTORY OF IRRADIATION 04/07/2019 KARLA TRAVIS MD Ot 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, UNSPECIFIED 04/07/2019 KARLA TRAVIS MD Ot E78.4 OTHER HYPERLIPIDEMIA 04/07/2019 KARLA TRAVIS MD Ot I10 ESSENTIAL (PRIMARY) HYPERTENSION 04/07/2019 KARLA TRAVIS MD Ot Z79.8 99 OTHER [facility] (CURRENT) DRUG THERAPY 04/07/2019 VERNON HOFFMAN FACC, ALI FACP CCDS Ot C43.59 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 04/07/2019 VERNON HOFFMAN FACC, ALI FACP CCDS Ot E78.4 OTHER HYPERLIPIDEMIA 04/07/2019 VERNON HOFFMAN FACC, ALI FACP CCDS Ot I25.10 ATHSCL HEART DISEASE OF [place] CORONARY 04/07/2019 VERNON HOFFMAN FACC, ALI FACP CCDS Ot I65.23 OCCLUSION AND STENOSIS OF BILATERAL [place] 04/07/2019 VERNON HOFFMAN FACC, ALI FACP CCDS Ot N18.3 CHRONIC KIDNEY DISEASE, STAGE 3 (MODERAT 04/07/2019 EUGENIA YI LATENT PRINT EXAMINER Ot C43.59 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 04/07/2019 EUGENIA YI LATENT PRINT EXAMINER Ot C77.3 SEC AND UNSP MALIG NEOPLASM OF [place] AN 04/07/2019 EUGENIA YI LATENT PRINT EXAMINER Ot Z79.899 OTHER [facility] (CURRENT) DRUG THERAPY 04/07/2019 EUGENIA YI LATENT PRINT EXAMINER Ot Z85.3 PERSONAL HISTORY OF MALIGNANT NEOPLASM O 04/07/2019 EUGENIA YI LATENT PRINT EXAMINER Ot Z92.21 PERSONAL HISTORY OF ANTINEOPLASTIC CHEMO 04/07/2019 EUGENIA YI LATENT PRINT EXAMINER Ot Z92.3 PERSONAL HISTORY OF IRRADIATION 04/07/2019 EUGENIA YI LATENT PRINT EXAMINER Ot C43.59 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 04/07/2019 EUGENIA YI LATENT PRINT EXAMINER Ot C77.3 SEC AND UNSP MALIG NEOPLASM OF [place] 04/07/2019 FRANCISCO ROLON N Ot C77.3 SEC AND UNSP MALIG NEOPLASM OF [place] AN 04/07/2019 FRANCISCO ROLON Ot M62.9 DISORDER OF MUSCLE, UNSPECIFIED 04/07/2019 FRANCISCO ROLON Ot R94.8 ABNORMAL RESULTS OF FUNCTION STUDIES OF 04/07/2019 ANGY HOFFMAN, KARLA Horowitz Ot R53.8 3 OTHER FATIGUE 04/07/2019 EUGENIA YI LATENT PRINT EXAMINER Ot E80.6 OTHER DISORDERS OF BILIRUBIN METABOLISM 04/07/2019 EUGENIA YI LATENT PRINT EXAMINER Ot C43.59 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 04/07/2019 EUGENIA YI LATENT PRINT EXAMINER Ot E80.6 OTHER DISORDERS OF BILIRUBIN METABOLISM 04/07/2019 FRANCISCO ROLON N Ot C43.59 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 04/07/2019 EUGENIA YI LATENT PRINT EXAMINER Ot N 63 UNSPECIFIED LUMP IN BREAST 04/07/2019 EUGENIA YI LATENT PRINT EXAMINER Ot Z85.3 PERSONAL HISTORY OF MALIGNANT NEOPLASM O 04/07/2019 EUGENIA YI LATENT PRINT EXAMINER Ot C43.59 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 04/07/2019 EUGENIA YI LATENT PRINT EXAMINER Ot R26.9 UNSPECIFIED ABNORMALITIES OF GAIT AND MO 04/07/2019 EUGENIA YI LATENT PRINT EXAMINER Ot R 42 DIZZINESS AND GIDDINESS 04/07/2019 EUGENIA YI LATENT PRINT EXAMINER Ot R 51 HEADACHE 04/07/2019 KARLA TRAVIS MD Ot C43.5 9 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 04/07/2019 KARLA TRAVIS MD Ot R42 DIZZINESS AND GIDDINESS 04/07/2019 KARLA TRAVIS MD Ot Z85.3 PERSONAL HISTORY OF MALIGNANT NEOPLASM O 04/07/2019 KARLA TRAVIS MD Ot E03.9 HYPOTHYROIDISM, UNSPECIFIED 04/07/2019 EUGENIA YI LATENT PRINT EXAMINER Ot C43.59 MALIGNANT MELANOMA OF OTHER PART OF TRUN 04/07/2019 KARLA TRAVIS MD Ot E78.5 HYPERLIPIDEMIA, UNSPECIFIED 04/07/2019 VERNON HOFFMAN FAC, ALI FACP CCDS Ot E78.4 OTHER HYPERLIPIDEMIA 04/07/2019 VERNON FARNSWORTHC, ALI FACP CCDS Ot I10 ESSENTIAL (PRIMARY) HYPERTENSION 04/07/2019 VERNON FARNSWORTH, ALI FACP CCDS Ot I25.10 ATHSCL HEART DISEASE OF [place] CORONARY 04/07/2019 VERNON HOFFMAN FAC, ALI FACP CCDS Ot I65.23 OCCLUSION AND STENOSIS OF BILATERAL [place] 04/07/2019 VERNON HOFFMAN [facility], ALI FACP CCDS Ot R06.09 OTHER FORMS OF DYSPNEA 04/07/2019 VERNON FARNSWORTH, ALI FACP CCDS Ot R53.1 WEAKNESS 04/07/2019 VERNON FARNSWORTH, ALI FACP CCDS Ot E78.4 OTHER HYPERLIPIDEMIA 04/07/2019 VERNON HOFFMAN [facility], ALI FACP CCDS Ot I10 ESSENTIAL (PRIMARY) HYPERTENSION 04/07/2019 VERNON HOFFMAN FAC, ALI FACP CCDS Ot I25.10 ATHSCL HEART DISEASE OF [place] CORONARY 04/07/2019 VERNON FARNSWORTH, ALI FACP CCDS Ot I65.23 OCCLUSION AND STENOSIS OF BILATERAL [place] 04/07/2019 VERNON HOFFMAN FAC, ALI FACP CCDS Ot R06.09 OTHER FORMS OF DYSPNEA 04/07/2019 VERNON HOFFMAN FACC, ALI FACP CCDS Ot R53.1 WEAKNESS 04/07/2019 EUGENIA YI LATENT PRINT EXAMINER Ot C43.59 MALIGNANT MELANOMA OF OTHER PART OF TRUN 04/07/2019 EUGENIA YI LATENT PRINT EXAMINER Ot G93.89 OTHER SPECIFIED DISORDERS OF BRAIN 04/07/2019 EUGENIA YIP Ot R 42 DIZZINESS AND GIDDINESS 04/07/2019 EUGENIA YI LATENT PRINT EXAMINER Ot 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, UNSPECIFIED 04/07/2019 EUGENIA YI LATENT PRINT EXAMINER Ot R91.1 SOLITARY PULMONARY NODULE 04/07/2019 EUGENIA YI LATENT PRINT EXAMINER Ot Z85.820 PERSONAL HISTORY OF MALIGNANT MELANOMA O 04/07/2019 KARLA TRAVIS MD Ot E03.9 HYPOTHYROIDISM, UNSPECIFIED 04/07/2019 KARLA TRAVIS MD Ot 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.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 04/07/2019 EUGENIA YI Ot C77.3 SEC AND UNSP MALIG NEOPLASM OF [place] AN 04/07/2019 EUGENIA YIP Ot Z85.820 PERSONAL HISTORY OF MALIGNANT MELANOMA O 04/07/2019 KARLA TRAVIS MD Ot 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, UNSP WITHOUT THYROTOXIC 04/07/2019 KARLA TRAVIS MD Ot E78.4 OTHER HYPERLIPIDEMIA 04/07/2019 KARLA TRAVIS MD Ot I10 ESSENTIAL (PRIMARY) HYPERTENSION 04/07/2019 GORDON WEATHERS MD Ot C43.59 MALIGNANT MELANOMA OF OTHER PART OF TRUN 04/07/2019 GORDON WEATHERS MD Ot C50.919 MALIGNANT NEOPLASM OF UNSP SITE OF UNSPE 04/07/2019 GORDON WEATHERS MD Ot R10.31 RIGHT LOWER QUADRANT PAIN 04/07/2019 GORDON WEATHERS MD Ot R91.1 SOLITARY PULMONARY NODULE 04/07/2019 DARRYL POPE MD Ot H93.3X9 DISORDERS OF UNSPECIFIED ACOUSTIC NERVE 04/07/2019 DARRYL POPE MD Ot I63.89 OTHER CEREBRAL INFARCTION 04/07/2019 DARRYL POPE MD Ot Z01.812 ENCOUNTER FOR PREPROCEDURAL LABORATORY E 04/07/2019 DARRYL POPE MD Ot Z85.3 PERSONAL HISTORY OF MALIGNANT NEOPLASM O 04/07/2019 DARRYL POPE MD Ot Z85.820 PERSONAL HISTORY OF MALIGNANT MELANOMA O 04/07/2019 EUGENIA YI LATENT PRINT EXAMINER Ot C43.59 MALIGNANT MELANOMA OF OTHER PART OF TRUN 04/07/2019 YIEUGENIA Veras LATENT PRINT EXAMINER Ot C77.3 SEC AND UNSP MALIG NEOPLASM OF [place] AN 04/07/2019 YIEUGENIA Veras Rito LATENT PRINT EXAMINER Ot L98.9 DISORDER OF THE SKIN AND SUBCUTANEOUS TI 04/07/2019 JUANITO YITOD Rito LATENT PRINT EXAMINER Ot R91.8 OTHER NONSPECIFIC ABNORMAL FINDING OF JEAN 04/07/2019 EUGENIA YI LATENT PRINT EXAMINER Ot Z01.89 ENCOUNTER FOR OTHER SPECIFIED SPECIAL EX 04/07/2019 FRANCISCO ROLON N Ot C43.59 MALIGNANT MELANOMA OF OTHER PART OF TRUN 04/07/2019 ОЛЬГА FRANCISCO N Ot C77.3 SEC AND UNSP MALIG NEOPLASM OF [place] AN 04/07/2019 ОЛЬГАFRANCISCO N Ot C79.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 04/07/2019 ОЛЬГАFRANCISCO Ot E03.9 HYPOTHYROIDISM, UNSPECIFIED 04/07/2019 ОЛЬГАFRANCISCO Ot E78.5 HYPERLIPIDEMIA, UNSPECIFIED 04/07/2019 ОЛЬГАFRANCISCO N Ot I12.9 HYPERTENSIVE CHRONIC KIDNEY DISEASE W ST 04/07/2019 ОЛЬГАFRANCISCO N Ot I25.10 ATHSCL HEART DISEASE OF [place] CORONARY 04/07/2019 ОЛЬГАFRANCISCO N Ot N18.3 CHRONIC KIDNEY DISEASE, STAGE 3 (MODERAT 04/07/2019 ОЛЬГАFRANCISCO N Ot Z79.899 OTHER [facility] (CURRENT) DRUG THERAPY 04/07/2019 ОЛЬГАFRANCISCO N Ot Z85.3 PERSONAL HISTORY OF MALIGNANT NEOPLASM O 04/07/2019 FRANCISCO ROLON N Ot Z92.21 PERSONAL HISTORY OF ANTINEOPLASTIC CHEMO 04/07/2019 FRANCISCO ROLON N Ot Z92.3 PERSONAL HISTORY OF IRRADIATION 04/07/2019 DARRYL POPE MD Ot 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, UNSPECIFIED 04/07/2019 DARRYL POPE MD Ot H81.90 UNSPECIFIED DISORDER OF VESTIBULAR FUNCT 04/07/2019 DARRYL POPE MD Ot Z85.3 PERSONAL HISTORY OF MALIGNANT NEOPLASM O 04/07/2019 DARRYL POPE MD Ot Z95.1 PRESENCE OF AORTOCORONARY BYPASS GRAFT 04/07/2019 ANGY HOFFMAN, KARLA Horowitz Ot Z01.8 9 ENCOUNTER FOR OTHER SPECIFIED SPECIAL EX 04/07/2019 ROB REYES DO Ot E78. 5 HYPERLIPIDEMIA, UNSPECIFIED 04/07/2019 ROB REYES DO Ot F32. 9 MAJOR DEPRESSIVE DISORDER, SINGLE EPISOD 04/07/2019 ROB REYES DO Ot G62. 9 POLYNEUROPATHY, UNSPECIFIED 04/07/2019 ROB REYES DO Ot I10 ESSENTIAL (PRIMARY) HYPERTENSION 04/07/2019 ROB REYES DO Ot I25. 10 ATHSCL HEART DISEASE OF [place] CORONARY 04/07/2019 ROB REYES DO Ot I73. 9 PERIPHERAL VASCULAR DISEASE, UNSPECIFIED 04/07/2019 ROB REYES DO Ot I77. 9 DISORDER OF ARTERIES AND ARTERIOLES, UNS 04/07/2019 ROB REYES DO Ot I87. 2 VENOUS INSUFFICIENCY (CHRONIC) (PERIPHER 04/07/2019 ROB REYES DO Ot K21. 9 GASTRO-ESOPHAGEAL REFLUX DISEASE WITHOUT 04/07/2019 ROB REYES DO Ot K31. 7 POLYP OF STOMACH AND DUODENUM 04/07/2019 ROB REYES DO Ot K31. 89 OTHER DISEASES OF STOMACH AND DUODENUM 04/07/2019 ROB REYES DO Ot R13. 10 DYSPHAGIA, UNSPECIFIED 04/07/2019 ROB REYES DO Ot R22. 43 LOCALIZED SWELLING, MASS AND LUMP, LOWER 04/07/2019 ROB REYES DO Ot R26. 9 UNSPECIFIED ABNORMALITIES OF GAIT AND MO 04/07/2019 ROB REYES DO Ot Z79. 82 [facility] (CURRENT) USE OF ASPIRIN 04/07/2019 ROB REYES DO Ot Z79.899 OTHER [facility] (CURRENT) DRUG THERAPY 04/07/2019 ROB REYES DO Ot Z80. 9 FAMILY HISTORY OF MALIGNANT NEOPLASM, UN 04/07/2019 ROB REYES DO Ot Z82. 3 FAMILY HISTORY OF STROKE 04/07/2019 RBO REYES DO Ot Z82. 49 FAMILY HX OF ISCHEM HEART DIS AND OTH DI 04/07/2019 ROB REYES DO Ot Z88. 1 ALLERGY STATUS TO OTHER ANTIBIOTIC AGENT 04/07/2019 ROB REYES DO Ot Z88. 5 ALLERGY STATUS TO NARCOTIC AGENT STATUS 04/07/2019 ROB REYES DO Ot Z88. 7 ALLERGY STATUS TO SERUM AND VACCINE STAT 04/07/2019 ROB REYES DO Ot Z88. 8 ALLERGY STATUS TO OTH DRUG/MEDS/BIOL SUB 04/07/2019 ROB REYES DO Ot Z95. 1 PRESENCE OF AORTOCORONARY BYPASS GRAFT 04/07/2019 DARRYL POPE MD Ot 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, UNSPECIFIED 04/07/2019 DARRYL POPE MD Ot H81.90 UNSPECIFIED DISORDER OF VESTIBULAR FUNCT 04/07/2019 DARRYL POPE MD Ot Z85.3 PERSONAL HISTORY OF MALIGNANT NEOPLASM O 04/07/2019 DARRYL POPE MD Ot Z95.1 PRESENCE OF AORTOCORONARY BYPASS GRAFT 04/07/2019 EUGENIA YI LATENT PRINT EXAMINER Ot 172.5 MALIG MELANOMA TRUNK 04/07/2019 EUGENIA YIP Ot 724.2 LUMBAGO 04/07/2019 EUGENIA YI LATENT PRINT EXAMINER Ot 781.2 ABNORMALITY OF GAIT 04/07/2019 EUGENIA YI LATENT PRINT EXAMINER Ot 784.0 HEADACHE 04/07/2019 EUGENIA YIP Ot V10.3 HX OF BREAST MALIGNANCY 04/07/2019 EUGENIA YI LATENT PRINT EXAMINER Ot V15.3 HX OF IRRADIATION 04/07/2019 EUGENIA YIP Ot V58.69 OTH MED,LT,CURRENT USE 04/07/2019 EUGENIA YI LATENT PRINT EXAMINER Ot V87.41 PERSONAL HISTORY OF ANTINEOPLASTIC CHEMO 04/07/2019 EUGENIA YI LATENT PRINT EXAMINER Ot 172.9 MALIG MELANOMA SKIN NOS 04/07/2019 EUGENIA YI LATENT PRINT EXAMINER Ot 781.2 ABNORMALITY OF GAIT 04/07/2019 EUGENIA YI LATENT PRINT EXAMINER Ot 784.0 HEADACHE 04/07/2019 EUGENIA YIP Ot 794.9 ABN FUNCTION STUDY NEC 04/07/2019 EUGENIA YI LATENT PRINT EXAMINER Ot V76.12 OTH SCREEN MAMMO-MALIGN NEOPLASM OF JOSE 04/07/2019 Ot 172.9 DAVID G MELANOMA SKIN NOS 04/07/2019 Ot V76.12 OTH SCREEN MAMMO- MALIGN NEOPLASM OF [place] 04/07/2019 ОЛЬГА FRANCISCO N Ot 172.9 MALIG MELANOMA SKIN NOS 04/07/2019 ОЛЬГА FRANCISCO N Ot V10.3 HX OF BREAST MALIGNANCY 04/07/2019 ANGY HOFFMAN, KARLA Horowitz Ot 719.4 7 JOINT PAIN-ANKLE 04/07/2019 EUGENIA YI LATENT PRINT EXAMINER Ot 172.5 MALIG MELANOMA TRUNK 04/07/2019 EUGENIA YI LATENT PRINT EXAMINER Ot V10.3 HX OF BREAST MALIGNANCY 04/07/2019 EUGENIA YI S LATENT PRINT EXAMINER Ot V15.3 HX OF IRRADIATION 04/07/2019 EUGENIA YI LATENT PRINT EXAMINER Ot V58.69 OTH MED,LT,CURRENT USE 04/07/2019 EUGENIA YI LATENT PRINT EXAMINER Ot V87.41 PERSONAL HISTORY OF ANTINEOPLASTIC CHEMO 04/07/2019 EUGENIA YI S LATENT PRINT EXAMINER Ot 172.9 MALIG MELANOMA SKIN NOS 04/07/2019 EUGENIA YI S LATENT PRINT EXAMINER Ot 174.9 MALIGN NEOPL BREAST NOS 04/07/2019 EUGENIA YI LATENT PRINT EXAMINER Ot 724.5 BACKACHE NOS 04/07/2019 EUGENIA YI LATENT PRINT EXAMINER Ot 172.9 MALIG MELANOMA SKIN NOS 04/07/2019 EUGENIA YI LATENT PRINT EXAMINER Ot 174.9 MALIGN NEOPL BREAST NOS 04/07/2019 EUGENIA YI S LATENT PRINT EXAMINER Ot 724.5 BACKACHE NOS 04/07/2019 ОЛЬГА DIANAPAPA N Ot 172.9 MALIG MELANOMA SKIN NOS 04/07/2019 ОЛЬГА DIANAPAPA N Ot 786.6 CHEST SWELLING/MASS/LUMP 04/07/2019 EUGENIA YI LATENT PRINT EXAMINER Ot 172.9 MALIG MELANOMA SKIN NOS 04/07/2019 EUGENIA YI LATENT PRINT EXAMINER Ot V58.69 OTH MED,LT,CURRENT USE 04/07/2019 EUGENIA YI LATENT PRINT EXAMINER Ot V58.83 ENCOUNTER FOR THERAPEUTIC DRUG MONITORIN 04/07/2019 EUGENIA YI LATENT PRINT EXAMINER Ot 172.5 MALIG MELANOMA TRUNK 04/07/2019 EUGENIA YI LATENT PRINT EXAMINER Ot V10.3 HX OF BREAST MALIGNANCY 04/07/2019 EUGENIA YI LATENT PRINT EXAMINER Ot V15.3 HX OF IRRADIATION 04/07/2019 EUGENIA YI LATENT PRINT EXAMINER Ot V58.69 OTH MED,LT,CURRENT USE 04/07/2019 YIEUGENIA Veras LATENT PRINT EXAMINER Ot V87.41 PERSONAL HISTORY OF ANTINEOPLASTIC CHEMO 04/07/2019 YI EUGENIA Rito LATENT PRINT EXAMINER Ot 172.5 MALIG MELANOMA TRUNK 04/07/2019 YIEUGENIA Veras LATENT PRINT EXAMINER Ot 199.1 MALIGNANT NEOPLASM NOS 04/07/2019 KASSIDY EUGENIA Veras LATENT PRINT EXAMINER Ot 786.2 COUGH 04/07/2019 KASSIDY EUGENIA Veras LATENT PRINT EXAMINER Ot V10.3 HX OF BREAST MALIGNANCY 04/07/2019 YI EUGENIA S LATENT PRINT EXAMINER Ot V15.3 HX OF IRRADIATION 04/07/2019 KASSIDY EUGENIA Veras LATENT PRINT EXAMINER Ot V58.69 OTH MED,LT,CURRENT USE 04/07/2019 KASSIDY EUGENIA Rito LATENT PRINT EXAMINER Ot V87.41 PERSONAL HISTORY OF ANTINEOPLASTIC CHEMO 04/07/2019 JUANITO YITOD Rito LATENT PRINT EXAMINER Ot 172.5 MALIG MELANOMA TRUNK 04/07/2019 JUANITO YITOD Rito LATENT PRINT EXAMINER Ot 199.1 MALIGNANT NEOPLASM NOS 04/07/2019 JUANITO YITOD Rito LATENT PRINT EXAMINER Ot 511.9 PLEURAL EFFUSION NOS 04/07/2019 KASSIDY EUGENIA Veras LATENT PRINT EXAMINER Ot V10.3 HX OF BREAST MALIGNANCY 04/07/2019 JUANITO YITOD Rito LATENT PRINT EXAMINER Ot V15.3 HX OF IRRADIATION 04/07/2019 KASSIDY EUGENIA Veras LATENT PRINT EXAMINER Ot V58.69 OTH MED,LT,CURRENT USE 04/07/2019 KASSIDY EUGENIA Veras LATENT PRINT EXAMINER Ot V87.41 PERSONAL HISTORY OF ANTINEOPLASTIC CHEMO 04/07/2019 JUANITO YITOD Rito LATENT PRINT EXAMINER Ot 780.60 FEVER, UNSPECIFIED 04/07/2019 YI EUGENIA S LATENT PRINT EXAMINER Ot 786.2 COUGH 04/07/2019 KASSIDY EUGENIA Veras LATENT PRINT EXAMINER Ot 172.5 MALIG MELANOMA TRUNK 04/07/2019 JUANITO YITOD S LATENT PRINT EXAMINER Ot 199.1 MALIGNANT NEOPLASM NOS 04/07/2019 EUGENIA YI LATENT PRINT EXAMINER Ot V10.3 HX OF BREAST MALIGNANCY 04/07/2019 KASSIDY EUGENIA S LATENT PRINT EXAMINER Ot V15.3 HX OF IRRADIATION 04/07/2019 EUGENIA YI LATENT PRINT EXAMINER Ot V58.69 OTH MED,LT,CURRENT USE 04/07/2019 EUGENIA YI LATENT PRINT EXAMINER Ot V87.41 PERSONAL HISTORY OF ANTINEOPLASTIC CHEMO 04/07/2019 EUGENIA YI LATENT PRINT EXAMINER Ot 414.00 CORON ATHEROSCLER NOS TYPE VESSEL, NATIV 04/07/2019 EUGENIA YI Ot V58.69 OTH MED,LT,CURRENT USE 04/07/2019 EUGENIA YI LATENT PRINT EXAMINER Ot V58.83 ENCOUNTER FOR THERAPEUTIC DRUG MONITORIN 04/07/2019 KARLA TRAVIS MD Ot 272.4 HYPERLIPIDEMIA NEC/NOS 04/07/2019 KARLA TRAVIS MD Ot 401.9 HYPERTENSION NOS 04/07/2019 KARLA TRAVIS MD Ot V58.6 9 OTH MED,LT,CURRENT USE 04/07/2019 EUGENIA YI Ot 172.5 MALIG MELANOMA TRUNK 04/07/2019 EUGENIA YI LATENT PRINT EXAMINER Ot 199.1 MALIGNANT NEOPLASM NOS 04/07/2019 EUGENIA YIP Ot 511.9 PLEURAL EFFUSION NOS 04/07/2019 EUGENIA YIP Ot V10.3 HX OF BREAST MALIGNANCY 04/07/2019 EUGENIA YI LATENT PRINT EXAMINER Ot V15.3 HX OF IRRADIATION 04/07/2019 EUGENIA YI LATENT PRINT EXAMINER Ot V58.69 OTH MED,LT,CURRENT USE 04/07/2019 EUGENIA YI LATENT PRINT EXAMINER Ot V87.41 PERSONAL HISTORY OF ANTINEOPLASTIC CHEMO 04/07/2019 EUGENIA YI LATENT PRINT EXAMINER Ot 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, UNSPECIFIED 04/07/2019 Ot C43.9 DAVID GNANT MELANOMA OF SKIN, UNSPECIFIED 04/07/2019 EUGENIA YI LATENT PRINT EXAMINER Ot 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, UNSPECIFIED 04/07/2019 EUGENIA YI LATENT PRINT EXAMINER Ot C43.59 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 04/07/2019 EUGENIA YI LATENT PRINT EXAMINER Ot C43.59 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 04/07/2019 EUGENIA YI LATENT PRINT EXAMINER Ot Z79.899 OTHER [facility] (CURRENT) DRUG THERAPY 04/07/2019 EUGENIA YI LATENT PRINT EXAMINER Ot Z85.3 PERSONAL HISTORY OF MALIGNANT NEOPLASM O 04/07/2019 EUGENIA YI LATENT PRINT EXAMINER Ot Z92.21 PERSONAL HISTORY OF ANTINEOPLASTIC CHEMO 04/07/2019 EUGENIA YI LATENT PRINT EXAMINER Ot Z92.3 PERSONAL HISTORY OF IRRADIATION 04/07/2019 EUGENIA YI LATENT PRINT EXAMINER Ot C43.59 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 04/07/2019 EUGENIA YI LATENT PRINT EXAMINER Ot 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 04/07/2019 EUGENIA YI LATENT PRINT EXAMINER Ot Z85.3 PERSONAL HISTORY OF MALIGNANT NEOPLASM O 04/07/2019 EUGENIA YI LATENT PRINT EXAMINER Ot Z92.21 PERSONAL HISTORY OF ANTINEOPLASTIC CHEMO 04/07/2019 EUGENIA YI LATENT PRINT EXAMINER Ot Z92.3 PERSONAL HISTORY OF IRRADIATION 04/07/2019 EUGENIA YIP Ot C43.59 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 04/07/2019 EUGENIA YI LATENT PRINT EXAMINER Ot 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 04/07/2019 EUGENIA YI LATENT PRINT EXAMINER Ot Z85.3 PERSONAL HISTORY OF MALIGNANT NEOPLASM O 04/07/2019 EUGENIA YI LATENT PRINT EXAMINER Ot Z92.3 PERSONAL HISTORY OF IRRADIATION 04/07/2019 SHERRELL HOFFMAN, RIKA Bledsoe Ot L98.9 DISORDER OF THE SKIN AND SUBCUTANEOUS TI 04/07/2019 SHERRELL HOFFMAN, RIKA Bledsoe Ot Z01.818 ENCOUNTER FOR OTHER PREPROCEDURAL EXAMIN 04/07/2019 EUGENIA YIP Ot C43.59 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 04/07/2019 EUGENIA YI LATENT PRINT EXAMINER Ot C43.59 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 04/07/2019 EUGENIA YIP Ot C77.3 SEC AND UNSP MALIG NEOPLASM OF [place] AN 04/07/2019 EUGENIA YI LATENT PRINT EXAMINER Ot Z79.899 OTHER [facility] (CURRENT) DRUG THERAPY 04/07/2019 EUGENIA YI LATENT PRINT EXAMINER Ot Z85.3 PERSONAL HISTORY OF MALIGNANT NEOPLASM O 04/07/2019 EUGENIA YI LATENT PRINT EXAMINER Ot Z92.21 PERSONAL HISTORY OF ANTINEOPLASTIC CHEMO 04/07/2019 EUGENIA YI LATENT PRINT EXAMINER Ot Z92.3 PERSONAL HISTORY OF IRRADIATION 04/07/2019 EUGENIA YI LATENT PRINT EXAMINER Ot C43.59 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 04/07/2019 YIEUGENIA Veras LATENT PRINT EXAMINER Ot C77.3 SEC AND UNSP MALIG NEOPLASM OF [place] 04/07/2019 JUANITO YITOD Rito LATENT PRINT EXAMINER Ot 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 04/07/2019 JUANITO YITOD Rito LATENT PRINT EXAMINER Ot Z85.3 PERSONAL HISTORY OF MALIGNANT NEOPLASM O 04/07/2019 JUANITO YITOD Rito LATENT PRINT EXAMINER Ot Z92.21 PERSONAL HISTORY OF ANTINEOPLASTIC CHEMO 04/07/2019 JUANITO YITOD Rito LATENT PRINT EXAMINER Ot Z92.3 PERSONAL HISTORY OF IRRADIATION 04/07/2019 JUANITO YITOD Rito LATENT PRINT EXAMINER Ot C43.59 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 04/07/2019 EUGENIA YI LATENT PRINT EXAMINER Ot C43.59 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 04/07/2019 EUGENIA YI LATENT PRINT EXAMINER Ot C77.3 SEC AND UNSP MALIG NEOPLASM OF [place] 04/07/2019 EUGENIA YI LATENT PRINT EXAMINER Ot Z79.899 OTHER [facility] (CURRENT) DRUG THERAPY 04/07/2019 JUANITO YITOD Rito LATENT PRINT EXAMINER Ot Z85.3 PERSONAL HISTORY OF MALIGNANT NEOPLASM O 04/07/2019 JUANITO YITOD Rito LATENT PRINT EXAMINER Ot Z92.21 PERSONAL HISTORY OF ANTINEOPLASTIC CHEMO 04/07/2019 EUGENIA YI S LATENT PRINT EXAMINER Ot Z92.3 PERSONAL HISTORY OF IRRADIATION 04/07/2019 EUGENIA YI LATENT PRINT EXAMINER Ot C43.59 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 04/07/2019 EUGENIA YI LATENT PRINT EXAMINER Ot C77.3 SEC AND UNSP MALIG NEOPLASM OF [place] AN 04/07/2019 JUANITO YITOD Rito LATENT PRINT EXAMINER Ot Z79.899 OTHER [facility] (CURRENT) DRUG THERAPY 04/07/2019 JUANITO YITOD Rito LATENT PRINT EXAMINER Ot Z85.3 PERSONAL HISTORY OF MALIGNANT NEOPLASM O 04/07/2019 EUGENIA YI S LATENT PRINT EXAMINER Ot Z92.21 PERSONAL HISTORY OF ANTINEOPLASTIC CHEMO 04/07/2019 UEGENIA YI S LATENT PRINT EXAMINER Ot Z92.3 PERSONAL HISTORY OF IRRADIATION 04/07/2019 EUGENIA YI S LATENT PRINT EXAMINER Ot C43.59 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 04/07/2019 EUGENIA YI LATENT PRINT EXAMINER Ot C77.3 SEC AND UNSP MALIG NEOPLASM OF [place] AN 04/07/2019 YIEUGENIA Veras LATENT PRINT EXAMINER Ot Z79.899 OTHER [facility] (CURRENT) DRUG THERAPY 04/07/2019 YI EUGENIA Veras LATENT PRINT EXAMINER Ot Z85.3 PERSONAL HISTORY OF MALIGNANT NEOPLASM O 04/07/2019 YI EUGENIA Veras LATENT PRINT EXAMINER Ot Z92.21 PERSONAL HISTORY OF ANTINEOPLASTIC CHEMO 04/07/2019 JUANITO YITOD S LATENT PRINT EXAMINER Ot Z92.3 PERSONAL HISTORY OF IRRADIATION 04/07/2019 JUANITO YITOD Veras LATENT PRINT EXAMINER Ot C43.59 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 04/07/2019 YI EUGENIA Veras LATENT PRINT EXAMINER Ot C77.3 SEC AND UNSP MALIG NEOPLASM OF [place] AN 04/07/2019 YI EUGENIA Veras LATENT PRINT EXAMINER Ot Z79.899 OTHER [facility] (CURRENT) DRUG THERAPY 04/07/2019 KASSIDY EUGENIA Veras LATENT PRINT EXAMINER Ot Z85.3 PERSONAL HISTORY OF MALIGNANT NEOPLASM O 04/07/2019 JUANITO YITOD Veras LATENT PRINT EXAMINER Ot Z92.21 PERSONAL HISTORY OF ANTINEOPLASTIC CHEMO 04/07/2019 KASSIDY EUGENIA Veras LATENT PRINT EXAMINER Ot Z92.3 PERSONAL HISTORY OF IRRADIATION 04/07/2019 YIJUANITOTOD Veras LATENT PRINT EXAMINER Ot M79.89 OTHER SPECIFIED SOFT TISSUE DISORDERS 04/07/2019 JUANITO YITOD Veras LATENT PRINT EXAMINER Ot C43.59 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 04/07/2019 JUANITO YITOD Veras LATENT PRINT EXAMINER Ot C77.3 SEC AND UNSP MALIG NEOPLASM OF [place] AN 04/07/2019 JUANITO YITOD Veras LATENT PRINT EXAMINER Ot 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 04/07/2019 JUANITO YITOD Veras LATENT PRINT EXAMINER Ot Z85.3 PERSONAL HISTORY OF MALIGNANT NEOPLASM O 04/07/2019 JUANITO YITOD S LATENT PRINT EXAMINER Ot Z92.21 PERSONAL HISTORY OF ANTINEOPLASTIC CHEMO 04/07/2019 EUGENIA YI S LATENT PRINT EXAMINER Ot Z92.3 PERSONAL HISTORY OF IRRADIATION 04/07/2019 KARLA TRAVIS MD Ot 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, UNSPECIFIED 04/07/2019 KARLA TRAVIS MD Ot E78.4 OTHER HYPERLIPIDEMIA 04/07/2019 KARLA TRAVIS MD Ot I10 ESSENTIAL (PRIMARY) HYPERTENSION 04/07/2019 KARLA TRAVIS MD Ot Z79.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 04/07/2019 VERNON HOFFMAN [facility] CCD[facility] Ot C43.59 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 04/07/2019 VERNON FARNSWORTH, ALI FACP CCDS Ot E78.4 OTHER HYPERLIPIDEMIA 04/07/2019 VERNON FARNSWORTH, ALI FACP CCDS Ot I25.10 ATHSCL HEART DISEASE OF [place] CORONARY 04/07/2019 VERNON HOFFMAN [facility], ALI FACP CCDS Ot I65.23 OCCLUSION AND STENOSIS OF BILATERAL [place] 04/07/2019 VERNON FARNSWORTH, ALI FACP CCDS Ot N18.3 CHRONIC KIDNEY DISEASE, STAGE 3 (MODERAT 04/07/2019 EUGENIA YI LATENT PRINT EXAMINER Ot C43.59 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 04/07/2019 EUGENIA YIP Ot C77.3 SEC AND UNSP MALIG NEOPLASM OF [place] AN 04/07/2019 EUGENIA YI LATENT PRINT EXAMINER Ot 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 04/07/2019 EUGENIA YI LATENT PRINT EXAMINER Ot Z85.3 PERSONAL HISTORY OF MALIGNANT NEOPLASM O 04/07/2019 EUGENIA YI LATENT PRINT EXAMINER Ot Z92.21 PERSONAL HISTORY OF ANTINEOPLASTIC CHEMO 04/07/2019 EUGENIA YI LATENT PRINT EXAMINER Ot Z92.3 PERSONAL HISTORY OF IRRADIATION 04/07/2019 EUGENIA YI LATENT PRINT EXAMINER Ot C43.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 04/07/2019 EUGENIA YIP Ot C77.3 SEC AND UNSP MALIG NEOPLASM OF [place] AN 04/07/2019 FRANCISCO ROLON Ot C77.3 SEC AND UNSP MALIG NEOPLASM OF [place] AN 04/07/2019 FRANCISCO ROLON Ot M62.9 DISORDER OF MUSCLE, UNSPECIFIED 04/07/2019 FRANCISCO ROLON Ot R94.8 ABNORMAL RESULTS OF FUNCTION STUDIES OF 04/07/2019 KARLA TRAVIS MD Ot R53.8 3 OTHER FATIGUE 04/07/2019 EUGENIA YI LATENT PRINT EXAMINER Ot E80.6 OTHER DISORDERS OF BILIRUBIN METABOLISM 04/07/2019 EUGENIA YI LATENT PRINT EXAMINER Ot C43.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 04/07/2019 YIEUGENIA Veras LATENT PRINT EXAMINER Ot E80.6 OTHER DISORDERS OF BILIRUBIN METABOLISM 04/07/2019 FRANCISCO ROLON N Ot C43.59 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 04/07/2019 YIEUGENIA Veras LATENT PRINT EXAMINER Ot N 63 UNSPECIFIED LUMP IN BREAST 04/07/2019 YIJUANITOTOD Veras LATENT PRINT EXAMINER Ot Z85.3 PERSONAL HISTORY OF MALIGNANT NEOPLASM O 04/07/2019 YIJUANITOTOD Veras LATENT PRINT EXAMINER Ot C43.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 04/07/2019 YIJUANITOTOD Veras LATENT PRINT EXAMINER Ot R26.9 UNSPECIFIED ABNORMALITIES OF GAIT AND MO 04/07/2019 EUGENIA YI LATENT PRINT EXAMINER Ot R 42 DIZZINESS AND GIDDINESS 04/07/2019 EUGENIA YI LATENT PRINT EXAMINER Ot R 51 HEADACHE 04/07/2019 KARLA TRAVIS MD, Ot C43.5 9 MALIGNANT MELANOMA OF OTHER PART OF TRUN 04/07/2019 KARLA TRAVIS MD Ot R42 DIZZINESS AND GIDDINESS 04/07/2019 KARLA TRAVIS MD Ot Z85.3 PERSONAL HISTORY OF MALIGNANT NEOPLASM O 04/07/2019 KARLA TRAVIS MD Ot E03.9 HYPOTHYROIDISM, UNSPECIFIED 04/07/2019 EUGENIA YI Rito LATENT PRINT EXAMINER Ot C43.59 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 04/07/2019 KARLA TRAVIS MD Ot E78.5 HYPERLIPIDEMIA, UNSPECIFIED 04/07/2019 VERNON HOFFMAN FACC, SHAQ FACP CCDS Ot E78.4 OTHER HYPERLIPIDEMIA 04/07/2019 VERNON HOFFMAN FACC, ALI FACP CCDS Ot I10 ESSENTIAL (PRIMARY) HYPERTENSION 04/07/2019 VERNON HOFFMAN FACC, ALI FACP CCDS Ot I25.10 ATHSCL HEART DISEASE OF [place] CORONARY 04/07/2019 VERNON HOFFMAN FACC, ALI FACP CCDS Ot I65.23 OCCLUSION AND STENOSIS OF BILATERAL [place] 04/07/2019 VERNON HOFFMAN FACC, ALI FACP CCDS Ot R06.09 OTHER FORMS OF DYSPNEA 04/07/2019 VERNON HOFFMAN FACC, SHAQ FACP CCDS Ot R53.1 WEAKNESS 04/07/2019 VERNON HOFFMAN FACC, ALI FACP CCDS Ot E78.4 OTHER HYPERLIPIDEMIA 04/07/2019 VERNON HOFFMAN FACC, ALI FACP CCDS Ot I10 ESSENTIAL (PRIMARY) HYPERTENSION 04/07/2019 VERNON HOFFMAN [facility] CCDS Ot I25.10 ATHSCL HEART DISEASE OF [place] CORONARY 04/07/2019 VERNON HOFFMAN [facility], [facility] CCDS Ot I65.23 OCCLUSION AND STENOSIS OF BILATERAL [place] 04/07/2019 VRENON HOFFMAN [facility] CCD[facility] Ot R06.09 OTHER FORMS OF DYSPNEA 04/07/2019 VERNON HOFFMAN [facility] CCDS Ot R53.1 WEAKNESS 04/07/2019 EUGENIA YI LATENT PRINT EXAMINER Ot C43.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 04/07/2019 EUGENIA YI LATENT PRINT EXAMINER Ot G93.89 OTHER SPECIFIED DISORDERS OF BRAIN 04/07/2019 EUGENIA YI LATENT PRINT EXAMINER Ot R 42 DIZZINESS AND GIDDINESS 04/07/2019 EUGENIA YI LATENT PRINT EXAMINER Ot 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, UNSPECIFIED 04/07/2019 EUGENIA YI LATENT PRINT EXAMINER Ot R91.1 SOLITARY PULMONARY NODULE 04/07/2019 EUGENIA YI LATENT PRINT EXAMINER Ot Z85.820 PERSONAL HISTORY OF MALIGNANT MELANOMA O 04/07/2019 KARLA TRAVIS MD Ot E03.9 HYPOTHYROIDISM, UNSPECIFIED 04/07/2019 KARLA TRAVIS MD Ot Z79.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 04/07/2019 EUGENIA YI LATENT PRINT EXAMINER Ot C77.3 SEC AND UNSP MALIG NEOPLASM OF [place]ILLA AN 04/07/2019 EUGENIA YI LATENT PRINT EXAMINER Ot Z85.820 PERSONAL HISTORY OF MALIGNANT MELANOMA O 04/07/2019 KARLA TRAVIS MD Ot 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, UNSP WITHOUT THYROTOXIC 04/07/2019 KARLA TRAVIS MD Ot E78.4 OTHER HYPERLIPIDEMIA 04/07/2019 KARLA TRAVIS MD Ot I10 ESSENTIAL (PRIMARY) HYPERTENSION 04/07/2019 GORDON WEATHERS MD Ot C43.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 04/07/2019 GORDON WEATHERS MD Ot C50.919 MALIGNANT NEOPLASM OF UNSP SITE OF UNSPE 04/07/2019 GORDON WEATHERS MD Ot R10.31 RIGHT LOWER QUADRANT PAIN 04/07/2019 GORDON WEATHERS MD Ot R91.1 SOLITARY PULMONARY NODULE 04/07/2019 DARRYL POPE MD, Ot H93.3X9 DISORDERS OF UNSPECIFIED ACOUSTIC NERVE 04/07/2019 DARRYL POPE MD Ot I63.89 OTHER CEREBRAL INFARCTION 04/07/2019 DARRYL POPE MD, Ot Z01.812 ENCOUNTER FOR PREPROCEDURAL LABORATORY E 04/07/2019 DARRYL POPE MD, Ot Z85.3 PERSONAL HISTORY OF MALIGNANT NEOPLASM O 04/07/2019 DARRYL POPE MD, Ot Z85.820 PERSONAL HISTORY OF MALIGNANT MELANOMA O 04/07/2019 EUGENIA YI LATENT PRINT EXAMINER Ot C43.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 04/07/2019 EUGENIA YIP Ot C77.3 SEC AND UNSP MALIG NEOPLASM OF AXILLA AN 04/07/2019 EUGENIA YI LATENT PRINT EXAMINER Ot L98.9 DISORDER OF THE SKIN AND SUBCUTANEOUS TI 04/07/2019 EUGENIA YI LATENT PRINT EXAMINER Ot R91.8 OTHER NONSPECIFIC ABNORMAL FINDING OF JEAN 04/07/2019 EUGENIA YI LATENT PRINT EXAMINER Ot Z01.89 ENCOUNTER FOR OTHER SPECIFIED SPECIAL EX 04/07/2019 FRANCISCO ROLON Ot C43.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 04/07/2019 FRANCISCO ROLON Ot C77.3 SEC AND UNSP MALIG NEOPLASM OF AXILL[place] AN 04/07/2019 FRANCISCO ROLON N Ot C79.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 04/07/2019 FRANCISCO ROLON Ot E03.9 HYPOTHYROIDISM, UNSPECIFIED 04/07/2019 FRANCISCO ROLON Ot E78.5 HYPERLIPIDEMIA, UNSPECIFIED 04/07/2019 FRANCISCO ROLON Ot I12.9 HYPERTENSIVE CHRONIC KIDNEY DISEASE W ST 04/07/2019 FRANCISCO ROLON Ot I25.10 ATHSCL HEART DISEASE OF [place] CORONARY 04/07/2019 FRANCISCO ROLON Ot N18.3 CHRONIC KIDNEY DISEASE, STAGE 3 (MODERAT 04/07/2019 FRANCISCO ROLON Ot 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 04/07/2019 FRANCISCO ROLON Ot Z85.3 PERSONAL HISTORY OF MALIGNANT NEOPLASM O 04/07/2019 FRANCISCO ROLON Ot Z92.21 PERSONAL HISTORY OF ANTINEOPLASTIC CHEMO 04/07/2019 FRANCISCO ROLON Ot Z92.3 PERSONAL HISTORY OF IRRADIATION 04/07/2019 NIKO HOFFMAN, DARRYL Bledsoe Ot 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, UNSPECIFIED 04/07/2019 DARRYL POPE MD Ot H81.90 UNSPECIFIED DISORDER OF VESTIBULAR FUNCT 04/07/2019 DARRYL POPE MD Ot Z85.3 PERSONAL HISTORY OF MALIGNANT NEOPLASM O 04/07/2019 DARRYL POPE MD Ot Z95.1 PRESENCE OF AORTOCORONARY BYPASS GRAFT 04/07/2019 ANGY HOFFMAN, KARLA Horowitz Ot Z01.8 9 ENCOUNTER FOR OTHER SPECIFIED SPECIAL EX 04/07/2019 ROB REYES DO Ot E78. 5 HYPERLIPIDEMIA, UNSPECIFIED 04/07/2019 ROB REYES DO Ot F32. 9 MAJOR DEPRESSIVE DISORDER, SINGLE EPISOD 04/07/2019 ROB REYES DO Ot G62. 9 POLYNEUROPATHY, UNSPECIFIED 04/07/2019 ROB REYES DO Ot I10 ESSENTIAL (PRIMARY) HYPERTENSION 04/07/2019 ROB REYES DO Ot I25. 10 ATHSCL HEART DISEASE OF [place] CORONARY 04/07/2019 ROB REYES DO Ot I73. 9 PERIPHERAL VASCULAR DISEASE, UNSPECIFIED 04/07/2019 ROB REYES DO Ot I77. 9 DISORDER OF ARTERIES AND ARTERIOLES, UNS 04/07/2019 ROB REYES DO Ot I87. 2 VENOUS INSUFFICIENCY (CHRONIC) (PERIPHER 04/07/2019 ROB REYES DO Ot K21. 9 GASTRO-ESOPHAGEAL REFLUX DISEASE WITHOUT 04/07/2019 ROB REYES DO Ot K31. 7 POLYP OF STOMACH AND DUODENUM 04/07/2019 ROB REYES DO Ot K31. 89 OTHER DISEASES OF STOMACH AND DUODENUM 04/07/2019 ROB REYES DO Ot R13. 10 DYSPHAGIA, UNSPECIFIED 04/07/2019 ROB REYES DO Ot R22. 43 LOCALIZED SWELLING, MASS AND LUMP, LOWER 04/07/2019 ROB REYES DO Ot R26. 9 UNSPECIFIED ABNORMALITIES OF GAIT AND MO 04/07/2019 ROB REYES DO Ot Z79. 82 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) USE OF ASPIRIN 04/07/2019 ROB REYES DO Ot Z79.899 OTHER [facility] (CURRENT) DRUG THERAPY 04/07/2019 ROB REYES DO Ot Z80. 9 FAMILY HISTORY OF MALIGNANT NEOPLASM, UN 04/07/2019 ROB REYES DO Ot Z82. 3 FAMILY HISTORY OF STROKE 04/07/2019 ROB REYES DO Ot Z82. 49 FAMILY HX OF ISCHEM HEART DIS AND OTH DI 04/07/2019 ROB REYES DO Ot Z88. 1 ALLERGY STATUS TO OTHER ANTIBIOTIC AGENT 04/07/2019 ROB REYES DO Ot Z88. 5 ALLERGY STATUS TO NARCOTIC AGENT STATUS 04/07/2019 ROB REYES DO Ot Z88. 7 ALLERGY STATUS TO SERUM AND VACCINE STAT 04/07/2019 ROB REYES DO Ot Z88. 8 ALLERGY STATUS TO OTH DRUG/MEDS/BIOL SUB 04/07/2019 ROB REYES DO Ot Z95. 1 PRESENCE OF AORTOCORONARY BYPASS GRAFT 04/07/2019 NICOLE HOFFMAN, PORSHA Bledsoe Ot E03. 9 HYPOTHYROIDISM, UNSPECIFIED 04/07/2019 PORSHA RIVERA MD Ot E78. 00 PURE HYPERCHOLESTEROLEMIA, UNSPECIFIED 04/07/2019 PORSHA RIVERA MD Ot F41. 8 OTHER SPECIFIED ANXIETY DISORDERS 04/07/2019 PORSHA RIVERA MD Ot G89. 29 OTHER CHRONIC PAIN 04/07/2019 PORSHA RIVERA MD Ot I13. 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 2 OLD MYOCARDIAL INFARCTION 04/07/2019 PORSHA RIVERA MD Ot I50. 9 HEART FAILURE, UNSPECIFIED 04/07/2019 PORSHA RIVERA MD Ot I73. 9 PERIPHERAL VASCULAR DISEASE, UNSPECIFIED 04/07/2019 PORSHA RIVERA MD Ot J30. 9 ALLERGIC RHINITIS, UNSPECIFIED 04/07/2019 PORSHA RIVERA MD Ot K21. 9 GASTRO-ESOPHAGEAL REFLUX DISEASE WITHOUT 04/07/2019 PORSHA RIVERA MD Ot M19. 90 UNSPECIFIED OSTEOARTHRITIS, UNSPECIFIED 04/07/2019 PORSHA RIVERA MD, Ot M54. 9 DORSALGIA, UNSPECIFIED 04/07/2019 PORSHA RIVERA MD, Ot M79. 7 FIBROMYALGIA 04/07/2019 PORSHA RIVERA MD, Ot N18. 3 CHRONIC KIDNEY DISEASE, STAGE 3 (MODERAT 04/07/2019 PORSHA RIVERA MD, Ot Z22. 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 82 [facility] (CURRENT) USE OF ASPIRIN 04/07/2019 PORSHA RIVERA MD, Ot Z80. 9 FAMILY HISTORY OF MALIGNANT NEOPLASM, UN 04/07/2019 PORSAH RIVERA MD, Ot Z82. 49 FAMILY HX OF ISCHEM HEART DIS AND OTH DI 04/07/2019 PORSHA RIVERA MD, Ot Z83. 3 FAMILY HISTORY OF DIABETES MELLITUS 04/07/2019 PORSHA RIVERA MD, Ot Z88. 5 ALLERGY STATUS TO NARCOTIC AGENT STATUS 04/07/2019 PORSHA RIVERA MD, Ot Z88. 7 ALLERGY STATUS TO SERUM AND VACCINE STAT 04/07/2019 PORSHA RIVERA MD, Ot Z92. 3 PERSONAL HISTORY OF IRRADIATION 04/07/2019 PORSHA RIVERA MD, Ot Z95. 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 04/11/2019 FRANCISCO ROLON Ot C77.3 SEC AND UNSP MALIG NEOPLASM OF [place] 04/11/2019 FRANCISCO ROLON Ot C79.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 04/11/2019 FRANCISCO ROLON Ot E03.9 HYPOTHYROIDISM, UNSPECIFIED 04/11/2019 FRANCISCO ROLON Ot E78.5 HYPERLIPIDEMIA, UNSPECIFIED 04/11/2019 FRANCISCO ROLON Ot I12.9 HYPERTENSIVE CHRONIC KIDNEY DISEASE W ST 04/11/2019 FRANCISCO ROLON Ot I25.10 ATHSCL HEART DISEASE OF [place] CORONARY 04/11/2019 FRANCISCO ROLON Ot N18.3 CHRONIC KIDNEY DISEASE, STAGE 3 (MODERAT 04/11/2019 FRANCISCO ROLON Ot Z79.899 OTHER [facility] (CURRENT) DRUG THERAPY 04/11/2019 FRANCISCO ROLON Tarah Ot Z85.3 PERSONAL HISTORY OF MALIGNANT NEOPLASM O 04/11/2019 FRANCISCO ROLON Tarah Ot Z92.21 PERSONAL HISTORY OF ANTINEOPLASTIC CHEMO 04/11/2019 FRANCISCO ROLON Tarah Ot Z92.3 PERSONAL HISTORY OF IRRADIATION 04/12/2019 ОЛЬГА FRANCISCO Rascon Ot 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 04/12/2019 ОЛЬГА FRANCISCO Rascon Ot C77.3 SEC AND UNSP MALIG NEOPLASM OF [place] 04/12/2019 ОЛЬГА FRANCISCO Rascon Ot C79.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 04/12/2019 ОЛЬГА FRANCISCO Rascon Ot E03.9 HYPOTHYROIDISM, UNSPECIFIED 04/12/2019 ОЛЬГА FRANCISCO Rascon Ot E78.5 HYPERLIPIDEMIA, UNSPECIFIED 04/12/2019 ОЛЬГА FRANCISCO Rascon Ot I12.9 HYPERTENSIVE CHRONIC KIDNEY DISEASE W ST 04/12/2019 ОЛЬГА FRANCISCO Rascon Ot I25.10 ATHSCL HEART DISEASE OF [place] CORONARY 04/12/2019 ОЛЬГА FRANCISCO Rascon Ot N18.3 CHRONIC KIDNEY DISEASE, STAGE 3 (MODERAT 04/12/2019 FRANCISCO ROLON Tarah Ot Z79.899 OTHER [facility] (CURRENT) DRUG THERAPY 04/12/2019 FRANCISCO ROLON Tarah Ot Z85.3 PERSONAL HISTORY OF MALIGNANT NEOPLASM O 04/12/2019 FRANCISCO ROLON Tarah Ot Z92.21 PERSONAL HISTORY OF ANTINEOPLASTIC CHEMO 04/12/2019 ОЛЬГА DIANAPAPA Tarah Ot Z92.3 PERSONAL HISTORY OF IRRADIATION 04/25/2019 ROB REYES DO Ot E78. 5 HYPERLIPIDEMIA, UNSPECIFIED 04/25/2019 ROB REYES DO Ot F32. 9 MAJOR DEPRESSIVE DISORDER, SINGLE EPISOD 04/25/2019 ROB REYES DO Ot G62. 9 POLYNEUROPATHY, UNSPECIFIED 04/25/2019 ROB REYES DO Ot I10 ESSENTIAL (PRIMARY) HYPERTENSION 04/25/2019 ROB REYES DO Ot I25. 10 ATHSCL HEART DISEASE OF [place] CORONARY 04/25/2019 ROB REYES DO Ot I73. 9 PERIPHERAL VASCULAR DISEASE, UNSPECIFIED 04/25/2019 ROB REYES DO Ot I77. 9 DISORDER OF ARTERIES AND ARTERIOLES, UNS 04/25/2019 ROB REYES DO Ot I87. 2 VENOUS INSUFFICIENCY (CHRONIC) (PERIPHER 04/25/2019 ROB REYES DO Ot K21. 9 GASTRO-ESOPHAGEAL REFLUX DISEASE WITHOUT 04/25/2019 ROB REYES DO Ot K31. 7 POLYP OF STOMACH AND DUODENUM 04/25/2019 ROB REYES DO, Ot K31. 89 OTHER DISEASES OF STOMACH AND DUODENUM 04/25/2019 ROB REYES DO Ot R13. 10 DYSPHAGIA, UNSPECIFIED 04/25/2019 ROB REYES DO Ot R22. 43 LOCALIZED SWELLING, MASS AND LUMP, LOWER 04/25/2019 ROB REYES DO, Ot R26. 9 UNSPECIFIED ABNORMALITIES OF GAIT AND MO 04/25/2019 ROB REYES DO, Ot Z79. 82 [facility] (CURRENT) USE OF ASPIRIN 04/25/2019 ROB REYES DO, Ot 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 04/25/2019 ROB REYES DO, Ot Z80. 9 FAMILY HISTORY OF MALIGNANT NEOPLASM, UN 04/25/2019 ROB REYES DO Ot Z82. 3 FAMILY HISTORY OF STROKE 04/25/2019 ROB REYES DO, Ot Z82. 49 FAMILY HX OF ISCHEM HEART DIS AND OTH DI 04/25/2019 ROB REYES DO, Ot Z88. 1 ALLERGY STATUS TO OTHER ANTIBIOTIC AGENT 04/25/2019 ROB REYES DO, Ot Z88. 5 ALLERGY STATUS TO NARCOTIC AGENT STATUS 04/25/2019 ROB REYES DO, Ot Z88. 7 ALLERGY STATUS TO SERUM AND VACCINE STAT 04/25/2019 ROB REYES DO, Ot Z88. 8 ALLERGY STATUS TO OT DRUG/MEDS/BIOL SUB 04/25/2019 ROB REYES DO, Ot Z95. 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 05/22/2019 FRANCISCO ROLON Ot C77.3 SEC AND UNSP MALIG NEOPLASM OF [place] 05/22/2019 FRANCISCO ROLON Ot C79.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 05/22/2019 FRANCISCO ROLON N Ot E03.9 HYPOTHYROIDISM, UNSPECIFIED 05/22/2019 ОЛЬГАDIANAAN N Ot E78.5 HYPERLIPIDEMIA, UNSPECIFIED 05/22/2019 ОЛЬГА, BOBAN N Ot I12.9 HYPERTENSIVE CHRONIC KIDNEY DISEASE W ST 05/22/2019 ОЛЬГА BOBAN N Ot I25.10 ATHSCL HEART DISEASE OF [place] CORONARY 05/22/2019 ОЬЛГАFRANCISCO MAE N Ot N18.3 CHRONIC KIDNEY DISEASE, STAGE 3 (MODERAT 05/22/2019 ОЛЬГА BOBAN N Ot Z79.899 OTHER [facility] (CURRENT) DRUG THERAPY 05/22/2019 ОЛЬГА BOBAN N Ot Z85.3 PERSONAL HISTORY OF MALIGNANT NEOPLASM O 05/22/2019 ОЛЬГА BOBAN N Ot Z92.21 PERSONAL HISTORY OF ANTINEOPLASTIC CHEMO 05/22/2019 ОЛЬГА BOBAN N Ot Z92.3 PERSONAL HISTORY OF IRRADIATION 06/09/2019 KARLA TRAVIS MD Ot Z01.8 9 ENCOUNTER FOR OTHER SPECIFIED SPECIAL EX 06/12/2019 FRANCISCO ROLON N Ot C43.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 06/12/2019 ОЛЬГА BOBAN N Ot C77.3 SEC AND UNSP MALIG NEOPLASM OF [place] 06/12/2019 ОЛЬГА BOBAN N Ot C79.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 06/12/2019 FRANCISCO ROLON N Ot E03.9 HYPOTHYROIDISM, UNSPECIFIED 06/12/2019 ОЛЬГАFRANCISCO MAE N Ot E78.5 HYPERLIPIDEMIA, UNSPECIFIED 06/12/2019 FRANCISCO ROLON N Ot I12.9 HYPERTENSIVE CHRONIC KIDNEY DISEASE W ST 06/12/2019 FRANCISCO ROLON N Ot I25.10 ATHSCL HEART DISEASE OF [place] CORONARY 06/12/2019 ОЛЬГА BOBAN N Ot N18.3 CHRONIC KIDNEY DISEASE, STAGE 3 (MODERAT 06/12/2019 ОЛЬГА BOBAN N Ot 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 06/12/2019 ОЛЬГА BOBAN N Ot Z85.3 PERSONAL HISTORY OF MALIGNANT NEOPLASM O 06/12/2019 ОЛЬГАDIANAAN N Ot Z92.21 PERSONAL HISTORY OF ANTINEOPLASTIC CHEMO 06/12/2019 ОЛЬГАDIANAAN N Ot Z92.3 PERSONAL HISTORY OF IRRADIATION 06/22/2019 KARLA TRAVIS MD Ot Z01.8 9 ENCOUNTER FOR OTHER SPECIFIED SPECIAL EX 07/13/2019 KARLA TRAVIS MD Ot 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, UNSPECIFIED 07/13/2019 KARLA TRAVIS MD Ot H40.9 UNSPECIFIED GLAUCOMA 07/13/2019 KARLA TRAVIS MD Ot I51.9 HEART DISEASE, UNSPECIFIED 07/13/2019 KARLA TRAVIS MD Ot K21.9 GASTRO-ESOPHAGEAL REFLUX DISEASE WITHOUT 07/13/2019 KARLA TRAVIS MD Ot R32 UNSPECIFIED URINARY INCONTINENCE 07/13/2019 KARLA TRAVIS MD Ot R39.1 5 URGENCY OF URINATION 07/13/2019 KARLA TRAVIS MD Ot Z85.3 PERSONAL HISTORY OF MALIGNANT NEOPLASM O 07/13/2019 KARLA TRAVIS MD Ot Z98.8 90 OTHER SPECIFIED POSTPROCEDURAL STATES 07/30/2019 FRANCISCO ROLON Ot 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 07/30/2019 FRANCISCO ROLON Ot C77.3 SEC AND UNSP MALIG NEOPLASM OF [place] 07/30/2019 FRANCISCO ROLON Ot C79.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 07/30/2019 FRANCISCO ROLON Ot E03.9 HYPOTHYROIDISM, UNSPECIFIED 07/30/2019 FRANCISCO ROLON N Ot E78.5 HYPERLIPIDEMIA, UNSPECIFIED 07/30/2019 FRANCISCO ROLON N Ot I12.9 HYPERTENSIVE CHRONIC KIDNEY DISEASE W ST 07/30/2019 FRANCISCO ROLON N Ot I25.10 ATHSCL HEART DISEASE OF [place] CORONARY 07/30/2019 FRANCISCO ROLON N Ot N18.3 CHRONIC KIDNEY DISEASE, STAGE 3 (MODERAT 07/30/2019 FRNACISCO ROLON N Ot 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 07/30/2019 FRANCISCO ROLON N Ot Z85.3 PERSONAL HISTORY OF MALIGNANT NEOPLASM O 07/30/2019 FRANCISCO ROLON N Ot Z92.21 PERSONAL HISTORY OF ANTINEOPLASTIC CHEMO 07/30/2019 FRANCISCO ROLON Ot Z92.3 PERSONAL HISTORY OF IRRADIATION 07/31/2019 FRANCISCO ROLON Ot 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 07/31/2019 FRANCISCO ROLON Ot C77.3 SEC AND UNSP MALIG NEOPLASM OF [place] 07/31/2019 ОЛЬГА FRANCISCO Rascon Ot C79.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 07/31/2019 ОЛЬГА DIANAPAPA Tarah Ot E03.9 HYPOTHYROIDISM, UNSPECIFIED 07/31/2019 ОЛЬГА FRANCISCO Rascon Ot E78.5 HYPERLIPIDEMIA, UNSPECIFIED 07/31/2019 ОЛЬГАDIANAPAPA Tarah Ot I12.9 HYPERTENSIVE CHRONIC KIDNEY DISEASE W ST 07/31/2019 ОЛЬГАFRANCISCO Ot I25.10 ATHSCL HEART DISEASE OF [place] CORONARY 07/31/2019 ОЛЬГА FRANCISCO Rascon Ot N18.3 CHRONIC KIDNEY DISEASE, STAGE 3 (MODERAT 07/31/2019 ОЛЬГАFRANCISCO Ot Z45.2 ENCOUNTER FOR ADJUSTMENT AND MANAGEMENT 07/31/2019 ОЛЬГАFRANCISCO Ot 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 07/31/2019 ОЛЬГАFRANCISCO Ot Z85.3 PERSONAL HISTORY OF MALIGNANT NEOPLASM O 07/31/2019 ОЛЬГАFRANCISCO Ot Z92.21 PERSONAL HISTORY OF ANTINEOPLASTIC CHEMO 07/31/2019 ОЛЬГАFRANCISCO Ot Z92.3 PERSONAL HISTORY OF IRRADIATION 08/08/2019 KARLA TRAVIS MD Ot 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, UNSPECIFIED 08/08/2019 KARLA TRAVIS MD Ot H40.9 UNSPECIFIED GLAUCOMA 08/08/2019 KARLA TRAVIS MD Ot I51.9 HEART DISEASE, UNSPECIFIED 08/08/2019 KARLA TRAVIS MD Ot K21.9 GASTRO-ESOPHAGEAL REFLUX DISEASE WITHOUT 08/08/2019 KARLA TRAVIS MD Ot R32 UNSPECIFIED URINARY INCONTINENCE 08/08/2019 KARLA TRAVIS MD Ot R39.1 5 URGENCY OF URINATION 08/08/2019 KARLA TRAVIS MD Ot Z85.3 PERSONAL HISTORY OF MALIGNANT NEOPLASM O 08/08/2019 KARLA TRAVIS MD Ot Z98.8 90 OTHER SPECIFIED POSTPROCEDURAL STATES 09/07/2019 FRANCISCO ROLON Ot 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 09/07/2019 ОЛЬГАFRANCISCO Ot C77.3 SEC AND UNSP MALIG NEOPLASM OF [place] 09/07/2019 ОЛЬГАFRANCISCO Ot C79.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 09/07/2019 ОЛЬГАFRANCISCO Ot E03.9 HYPOTHYROIDISM, UNSPECIFIED 09/07/2019 ОЛЬГАFRANCISCO N Ot E78.5 HYPERLIPIDEMIA, UNSPECIFIED 09/07/2019 ОЛЬГА, BOBAN N Ot I12.9 HYPERTENSIVE CHRONIC KIDNEY DISEASE W ST 09/07/2019 ОЛЬГА BOBPAPA N Ot I25.10 ATHSCL HEART DISEASE OF [place] CORONARY 09/07/2019 FRANCISCO ROLON N Ot N18.3 CHRONIC KIDNEY DISEASE, STAGE 3 (MODERAT 09/07/2019 ОЛЬГА, DIANAAN N Ot Z79.899 OTHER [facility] (CURRENT) DRUG THERAPY 09/07/2019 ОЛЬГА, BOBAN N Ot Z85.3 PERSONAL HISTORY OF MALIGNANT NEOPLASM O 09/07/2019 ОЛЬГА, BOBAN N Ot Z92.21 PERSONAL HISTORY OF ANTINEOPLASTIC CHEMO 09/07/2019 ОЛЬГАDIANAAN N Ot Z92.3 PERSONAL HISTORY OF IRRADIATION 11/08/2019 ОЛЬГАDIANAPAPA N Ot 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 11/08/2019 ОЛЬГАFRANCISCO N Ot C77.3 SEC AND UNSP MALIG NEOPLASM OF [place] 11/08/2019 ОЛЬГАFRANCISCO N Ot C79.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 11/08/2019 FRANCISCO ROLON N Ot E03.9 HYPOTHYROIDISM, UNSPECIFIED 11/08/2019 FRANCISCO ROLON N Ot E78.5 HYPERLIPIDEMIA, UNSPECIFIED 11/08/2019 ОЛЬГА, BOBAN N Ot I12.9 HYPERTENSIVE CHRONIC KIDNEY DISEASE W ST 11/08/2019 FRANCISCO ROLON N Ot I25.10 ATHSCL HEART DISEASE OF [place] CORONARY 11/08/2019 ОЛЬГА, DIANAPAPA N Ot N18.3 CHRONIC KIDNEY DISEASE, STAGE 3 (MODERAT 11/08/2019 ОЛЬГА, DIANAAN N Ot 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 11/08/2019 ОЛЬГА, DIANAAN N Ot Z85.3 PERSONAL HISTORY OF MALIGNANT NEOPLASM O 11/08/2019 ОЛЬГА, BOBAN N Ot Z92.21 PERSONAL HISTORY OF ANTINEOPLASTIC CHEMO 11/08/2019 ОЛЬГА, BOBAN N Ot Z92.3 PERSONAL HISTORY OF IRRADIATION Procedures Code Description Performed By Per formed On [id number] DR CASTILLO OF SPINAL CANAL, PERCUTANEOUS A 05/14/2015 Results Test Result Range THYROID STIMULATING HORMONE - 04/06/16 0 9:42 THYROID STIMULATING HORMONE 3.73 u[iU]/mL 0.35-4.94 THYROID STIMULATING HORMONE - 12/07/16 1 0:46 THYROID STIMULATING HORMONE 1.84 u[iU]/mL 0.35-4.94 Methicillin resistant Staphylococcus aur eus (MRSA) screening culture - 12/22/16 12:15 Methicillin resistant Staphylococcus aureus (MRSA) scr eening culture NEG NRG Lipid 1996 panel - 03/10/17 10:18 Serum or plasma triglyceride measurement (mass/volume) 116 mg/dL <150 Serum or plasma cholesterol measurement (mass/volume) 257 mg/dL < 200 Serum or plasma cholesterol in HDL measurement (mass/v olume) 52 mg/dL 40-60 Cholesterol in LDL [mass/volume] in serum or plasma by direct assay 189 mg/dL 1-129 Serum or plasma cholesterol in VLDL measurement (mass/ volume) 23 mg/dL 5-40 THYROID STIMULATING HORMONE - 03/10/17 1 0:18 THYROID STIMULATING HORMONE 1.20 u[iU]/mL 0.35-4.94 Automated blood complete blood count (he mogram) panel - 05/31/17 07:30 Blood leukocytes automated count (number/volume) 4.2 10*3/uL 4.3-11.0 Blood erythrocytes automated count (number/volume) 3.94 10*6/uL 4.35-5.85 Venous blood hemoglobin measurement (mass/volume) 10.7 g/dL 11.5-16.0 Blood hematocrit (volume fraction) 34 % 35-52 Automated erythrocyte mean corpuscular volume 85 [ foz_us] 80-99 Automated erythrocyte mean corpuscular h emoglobin (mass per erythrocyte) 27 pg 25-34 Automated erythrocyte mean corpuscular h emoglobin concentration measurement (mass/volume) 32 g/dL 32-36 Automated erythrocyte distribution width ratio 13. 6 % 10.0- 14.5 Automated blood platelet count (count/volume) 255 10*3/uL 130-400 Automated blood platelet mean volume measurement 9.6 [foz_us] 7.4-10.4 PT panel in platelet poor plasma by coag ulation assay - 05/31/17 07:30 Prothrombin time (PT) in platelet poor plasma by coagu lation assay 13.2 s 12.2-14.7 INR in platelet poor plasma or blood by coagulation as say 1.0 0.8-1.4 Activated partial thromboplastin time (a PTT) in platelet poor plasma bycoagulation assay - 05/31/17 07:30 Activated partial thromboplastin time (a PTT) in platelet poor plasma bycoagulation assay 48 s 24-35 Comprehensive metabolic panel - 05/31/17 07:30 Serum or plasma sodium measurement (moles/volume) 139 mmol/L 135-145 Serum or plasma potassium measurement (moles/volume) 4.5 mmol/L 3.6-5.0 Serum or plasma chloride measurement (moles/volume) 103 mmol/L 98-107 Carbon dioxide 26 mmol/L 21-32 Serum or plasma anion gap determination (moles/volume) 10 mmol/L 5-14 Serum or plasma urea nitrogen measurement (mass/volume ) 27 mg/dL 7-18 Serum or plasma creatinine measurement (mass/volume) 1.31 mg/dL 0.60-1.30 Serum or plasma urea nitrogen/creatinine mass ratio 21 NRG Serum or plasma creatinine measurement w ith calculation of estimated glomerular filtration rate 40 NRG Serum or plasma glucose measurement (mass/volume) 107 mg/dL 70-105 Serum or plasma calcium measurement (mass/volume) 10.3 mg/dL 8.5-10.1 Serum or plasma total bilirubin measurement (mass/volu me) 0.3 mg/dL 0.1-1.0 Serum or plasma alkaline phosphatase solis surement (enzymatic activity/volume) 107 U/L 40-136 Serum or plasma aspartate aminotransfera se measurement (enzymatic activity/volume) 21 U/L 5-34 Serum or plasma alanine aminotransferase measurement (enzymatic activity/volume) 18 U/L 0-55 Serum or plasma protein measurement (mass/volume) 6.5 g/dL 6.4-8.2 Serum or plasma albumin measurement (mass/volume) 3.9 g/dL 3.2-4.5 Lipid 1996 panel - 05/31/17 07:30 Serum or plasma triglyceride measurement (mass/volume) 124 mg/dL <150 Serum or plasma cholesterol measurement (mass/volume) 247 mg/dL < 200 Serum or plasma cholesterol in HDL measurement (mass/v olume) 55 mg/dL 40-60 Cholesterol in LDL [mass/volume] in serum or plasma by direct assay 168 mg/dL 1-129 Serum or plasma cholesterol in VLDL measurement (mass/ volume) 25 mg/dL 5-40 Methicillin resistant Staphylococcus aur eus (MRSA) screening culture - 05/31/17 07:30 Methicillin resistant Staphylococcus aureus (MRSA) scr eening culture NEG NRG Automated blood complete blood count (he mogram) panel - 06/01/17 04:51 Blood leukocytes automated count (number/volume) 4.9 10*3/uL 4.3-11.0 Blood erythrocytes automated count (number/volume) 3.76 10*6/uL 4.35-5.85 Venous blood hemoglobin measurement (mass/volume) 10.3 g/dL 11.5-16.0 Blood hematocrit (volume fraction) 32 % 35-52 Automated erythrocyte mean corpuscular volume 86 [ foz_us] 80-99 Automated erythrocyte mean corpuscular h emoglobin (mass per erythrocyte) 27 pg 25-34 Automated erythrocyte mean corpuscular h emoglobin concentration measurement (mass/volume) 32 g/dL 32-36 Automated erythrocyte distribution width ratio 13. 8 % 10.0- 14.5 Automated blood platelet count (count/volume) 240 10*3/uL 130-400 Automated blood platelet mean volume measurement 9.6 [foz_us] 7.4-10.4 Whole blood basic metabolic panel - 05/18 12/01 04:51 Serum or plasma sodium measurement (moles/volume) 138 mmol/L 135-145 Serum or plasma potassium measurement (moles/volume) 4.2 mmol/L 3.6-5.0 Serum or plasma chloride measurement (moles/volume) 103 mmol/L 98-107 Carbon dioxide 25 mmol/L 21-32 Serum or plasma anion gap determination (moles/volume) 10 mmol/L 5-14 Serum or plasma urea nitrogen measurement (mass/volume ) 22 mg/dL 7-18 Serum or plasma creatinine measurement (mass/volume) 1.19 mg/dL 0.60-1.30 Serum or plasma urea nitrogen/creatinine mass ratio 18 NRG Serum or plasma creatinine measurement w ith calculation of estimated glomerular filtration rate 45 NRG Serum or plasma glucose measurement (mass/volume) 102 mg/dL 70-105 Serum or plasma calcium measurement (mass/volume) 9.5 mg/dL 8.5-10.1 Complete blood count (CBC) with automate d white blood cell (WBC) differential - 10/13/17 12:56 Blood leukocytes automated count (number/volume) 4.4 10*3/uL 4.3-11.0 Blood erythrocytes automated count (number/volume) 4.35 10*6/uL 4.35-5.85 Venous blood hemoglobin measurement (mass/volume) 11.3 g/dL 11.5-16.0 Blood hematocrit (volume fraction) 35 % 35-52 Automated erythrocyte mean corpuscular volume 81 [ foz_us] 80-99 Automated erythrocyte mean corpuscular h emoglobin (mass per erythrocyte) 26 pg 25-34 Automated erythrocyte mean corpuscular h emoglobin concentration measurement (mass/volume) 32 g/dL 32-36 Automated erythrocyte distribution width ratio 14. 2 % 10.0- 14.5 Automated blood platelet count (count/volume) 292 10*3/uL 130-400 Automated blood platelet mean volume measurement 9.4 [foz_us] 7.4-10.4 Automated blood neutrophils/100 leukocytes 73 % 42-75 Automated blood lymphocytes/100 leukocytes 14 % 12-44 Blood monocytes/100 leukocytes 10 % 0-12 Automated blood eosinophils/100 leukocytes 3 % 0-10 Automated blood basophils/100 leukocytes 1 % 0-10 Blood neutrophils automated count (number/volume) 3.2 10*3 1.8-7.8 Blood lymphocytes automated count (number/volume) 0.6 10*3 1.0-4.0 Blood monocytes automated count (number/volume) 0. 4 10*3 0.0-1.0 Automated eosinophil count 0.1 10*3/uL 0 .0-0.3 Automated blood basophil count (count/volume) 0.1 10*3/uL 0.0-0.1 PT panel in platelet poor plasma by coag ulation assay - 10/13/17 12:56 Prothrombin time (PT) in platelet poor plasma by coagu lation assay 13.7 s 12.2-14.7 INR in platelet poor plasma or blood by coagulation as say 1.0 0.8-1.4 Activated partial thromboplastin time (a PTT) in platelet poor plasma bycoagulation assay - 10/13/17 12:56 Activated partial thromboplastin time (a PTT) in platelet poor plasma bycoagulation assay 30 s 24-35 Comprehensive metabolic panel - 10/13/17 12:56 Serum or plasma sodium measurement (moles/volume) 134 mmol/L 135-145 Serum or plasma potassium measurement (moles/volume) 4.1 mmol/L 3.6-5.0 Serum or plasma chloride measurement (moles/volume) 103 mmol/L 98-107 Carbon dioxide 25 mmol/L 21-32 Serum or plasma anion gap determination (moles/volume) 6 mmol/L 5-14 Serum or plasma urea nitrogen measurement (mass/volume ) 24 mg/dL 7-18 Serum or plasma creatinine measurement (mass/volume) 1.41 mg/dL 0.60-1.30 Serum or plasma urea nitrogen/creatinine mass ratio 17 NRG Serum or plasma creatinine measurement w ith calculation of estimated glomerular filtration rate 37 NRG Serum or plasma glucose measurement (mass/volume) 133 mg/dL 70-105 Serum or plasma calcium measurement (mass/volume) 9.6 mg/dL 8.5-10.1 Serum or plasma total bilirubin measurement (mass/volu me) 0.5 mg/dL 0.1-1.0 Serum or plasma alkaline phosphatase solis surement (enzymatic activity/volume) 229 U/L 40-136 Serum or plasma aspartate aminotransfera se measurement (enzymatic activity/volume) 25 U/L 5-34 Serum or plasma alanine aminotransferase measurement (enzymatic activity/volume) 19 U/L 0-55 Serum or plasma protein measurement (mass/volume) 6.8 g/dL 6.4-8.2 Serum or plasma albumin measurement (mass/volume) 3.9 g/dL 3.2-4.5 Magnesium - 10/13/17 12:56 Magnesium 2.1 mg/dL 1.8-2.4 Serum or plasma troponin i.cardiac measu rement (mass/volume) - 10/13/17 12:56 Serum or plasma troponin i.cardiac measurement (mass/v olume) < ng/mL <0.30 Myoglobin, serum - 10/13/17 12:56 Myoglobin, serum 52.8 ng/mL 10.0-92.0 Serum or plasma troponin i.cardiac measu rement (mass/volume) - 10/13/17 21:55 Serum or plasma troponin i.cardiac measurement (mass/v olume) < ng/mL <0.30 Complete blood count (CBC) with automate d white blood cell (WBC) differential - 10/14/17 03:15 Blood leukocytes automated count (number/volume) 4.4 10*3/uL 4.3-11.0 Blood erythrocytes automated count (number/volume) 3.94 10*6/uL 4.35-5.85 Venous blood hemoglobin measurement (mass/volume) 10.3 g/dL 11.5-16.0 Blood hematocrit (volume fraction) 32 % 35-52 Automated erythrocyte mean corpuscular volume 81 [ foz_us] 80-99 Automated erythrocyte mean corpuscular h emoglobin (mass per erythrocyte) 26 pg 25-34 Automated erythrocyte mean corpuscular h emoglobin concentration measurement (mass/volume) 32 g/dL 32-36 Automated erythrocyte distribution width ratio 14. 1 % 10.0- 14.5 Automated blood platelet count (count/volume) 261 10*3/uL 130-400 Automated blood platelet mean volume measurement 9.9 [foz_us] 7.4-10.4 Automated blood neutrophils/100 leukocytes 64 % 42-75 Automated blood lymphocytes/100 leukocytes 20 % 12-44 Blood monocytes/100 leukocytes 12 % 0-12 Automated blood eosinophils/100 leukocytes 4 % 0-10 Automated blood basophils/100 leukocytes 1 % 0-10 Blood neutrophils automated count (number/volume) 2.8 10*3 1.8-7.8 Blood lymphocytes automated count (number/volume) 0.9 10*3 1.0-4.0 Blood monocytes automated count (number/volume) 0. 5 10*3 0.0-1.0 Automated eosinophil count 0.2 10*3/uL 0 .0-0.3 Automated blood basophil count (count/volume) 0.0 10*3/uL 0.0-0.1 Whole blood basic metabolic panel - 09/17 03:15 Serum or plasma sodium measurement (moles/volume) 139 mmol/L 135-145 Serum or plasma potassium measurement (moles/volume) 4.4 mmol/L 3.6-5.0 Serum or plasma chloride measurement (moles/volume) 107 mmol/L 98-107 Carbon dioxide 24 mmol/L 21-32 Serum or plasma anion gap determination (moles/volume) 8 mmol/L 5-14 Serum or plasma urea nitrogen measurement (mass/volume ) 19 mg/dL 7-18 Serum or plasma creatinine measurement (mass/volume) 1.24 mg/dL 0.60-1.30 Serum or plasma urea nitrogen/creatinine mass ratio 15 NRG Serum or plasma creatinine measurement w ith calculation of estimated glomerular filtration rate 43 NRG Serum or plasma glucose measurement (mass/volume) 104 mg/dL 70-105 Serum or plasma calcium measurement (mass/volume) 9.4 mg/dL 8.5-10.1 Serum or plasma phosphate measurement (m ass/volume) - 10/14/17 03:15 Serum or plasma phosphate measurement (mass/volume) 2.9 mg/dL 2.3-4.7 Magnesium - 10/14/17 03:15 Magnesium 2.1 mg/dL 1.8-2.4 Lipid 1996 panel - 10/14/17 03:15 Serum or plasma triglyceride measurement (mass/volume) 136 mg/dL <150 Serum or plasma cholesterol measurement (mass/volume) 235 mg/dL < 200 Serum or plasma cholesterol in HDL measurement (mass/v olume) 40 mg/dL 40-60 Cholesterol in LDL [mass/volume] in serum or plasma by direct assay 170 mg/dL 1-129 Serum or plasma cholesterol in VLDL measurement (mass/ volume) 27 mg/dL 5-40 THYROID STIMULATING HORMONE - 11/17/17 0 9:31 THYROID STIMULATING HORMONE 1.58 u[iU]/mL 0.35-4.94 Automated blood complete blood count (he mogram) panel - 02/09/18 08:53 Blood leukocytes automated count (number/volume) 5.3 10*3/uL 4.3-11.0 Blood erythrocytes automated count (number/volume) 4.78 10*6/uL 4.35-5.85 Venous blood hemoglobin measurement (mass/volume) 12.4 g/dL 11.5-16.0 Blood hematocrit (volume fraction) 37 % 35-52 Automated erythrocyte mean corpuscular volume 78 [ foz_us] 80-99 Automated erythrocyte mean corpuscular h emoglobin (mass per erythrocyte) 26 pg 25-34 Automated erythrocyte mean corpuscular h emoglobin concentration measurement (mass/volume) 33 g/dL 32-36 Automated erythrocyte distribution width ratio 16. 2 % 10.0- 14.5 Automated blood platelet count (count/volume) 353 10*3/uL 130-400 Automated blood platelet mean volume measurement 9.5 [foz_us] 7.4-10.4 Comprehensive metabolic panel - 02/09/18 08:53 Serum or plasma sodium measurement (moles/volume) 135 mmol/L 135-145 Serum or plasma potassium measurement (moles/volume) 4.6 mmol/L 3.6-5.0 Serum or plasma chloride measurement (moles/volume) 100 mmol/L 98-107 Carbon dioxide 26 mmol/L 21-32 Serum or plasma anion gap determination (moles/volume) 9 mmol/L 5-14 Serum or plasma urea nitrogen measurement (mass/volume ) 31 mg/dL 7-18 Serum or plasma creatinine measurement (mass/volume) 1.44 mg/dL 0.60-1.30 Serum or plasma urea nitrogen/creatinine mass ratio 22 NRG Serum or plasma creatinine measurement w ith calculation of estimated glomerular filtration rate 36 NRG Serum or plasma glucose measurement (mass/volume) 112 mg/dL 70-105 Serum or plasma calcium measurement (mass/volume) 10.7 mg/dL 8.5-10.1 Serum or plasma total bilirubin measurement (mass/volu me) 0.5 mg/dL 0.1-1.0 Serum or plasma alkaline phosphatase solis surement (enzymatic activity/volume) 120 U/L 40-136 Serum or plasma aspartate aminotransfera se measurement (enzymatic activity/volume) 24 U/L 5-34 Serum or plasma alanine aminotransferase measurement (enzymatic activity/volume) 18 U/L 0-55 Serum or plasma protein measurement (mass/volume) 7.7 g/dL 6.4-8.2 Serum or plasma albumin measurement (mass/volume) 4.6 g/dL 3.2-4.5 Lipid 1996 panel - 02/09/18 08:53 Serum or plasma triglyceride measurement (mass/volume) 160 mg/dL <150 Serum or plasma cholesterol measurement (mass/volume) 306 mg/dL < 200 Serum or plasma cholesterol in HDL measurement (mass/v olume) 53 mg/dL 40-60 Cholesterol in LDL [mass/volume] in serum or plasma by direct assay 236 mg/dL 1-129 Serum or plasma cholesterol in VLDL measurement (mass/ volume) 32 mg/dL 5-40 THYROID STIMULATING HORMONE - 02/09/18 0 8:53 THYROID STIMULATING HORMONE 1.61 u[iU]/mL 0.35-4.94 [id number] - 04/21/18 10:10 Serum or plasma urea nitrogen measurement (mass/volume ) 26 mg/dL 7-18 Serum or plasma creatinine measurement (mass/volume) 1.41 mg/dL 0.60-1.30 Serum or plasma urea nitrogen/creatinine mass ratio 18 NRG Serum or plasma creatinine measurement w ith calculation of estimated glomerular filtration rate 37 NRG Methicillin resistant Staphylococcus aur eus (MRSA) screening culture - 10/20/18 06:24 Methicillin resistant Staphylococcus aureus (MRSA) scr eening culture NEG NRG Complete blood count (CBC) with automate d white blood cell (WBC) differential - 04/07/19 00:25 Blood leukocytes automated count (number/volume) 7.3 10*3/uL 4.3-11.0 Blood erythrocytes automated count (number/volume) 3.65 10*6/uL 4.35-5.85 Venous blood hemoglobin measurement (mass/volume) 11.8 g/dL 11.5-16.0 Blood hematocrit (volume fraction) 35 % 35-52 Automated erythrocyte mean corpuscular volume 96 [ foz_us] 80-99 Automated erythrocyte mean corpuscular h emoglobin (mass per erythrocyte) 32 pg 25-34 Automated erythrocyte mean corpuscular h emoglobin concentration measurement (mass/volume) 34 g/dL 32-36 Automated erythrocyte distribution width ratio 12. 7 % 10.0- 14.5 Automated blood platelet count (count/volume) 199 10*3/uL 130-400 Automated blood platelet mean volume measurement 9.5 [foz_us] 7.4-10.4 Automated blood neutrophils/100 leukocytes 68 % 42-75 Automated blood lymphocytes/100 leukocytes 18 % 12-44 Blood monocytes/100 leukocytes 10 % 0-12 Automated blood eosinophils/100 leukocytes 3 % 0-10 Automated blood basophils/100 leukocytes 1 % 0-10 Blood neutrophils automated count (number/volume) 4.9 10*3 1.8-7.8 Blood lymphocytes automated count (number/volume) 1.3 10*3 1.0-4.0 Blood monocytes automated count (number/volume) 0. 7 10*3 0.0-1.0 Automated eosinophil count 0.3 10*3/uL 0 .0-0.3 Automated blood basophil count (count/volume) 0.0 10*3/uL 0.0-0.1 PT panel in platelet poor plasma by coag ulation assay - 04/07/19 00:25 Prothrombin time (PT) in platelet poor plasma by coagu lation assay 13.0 s 12.2-14.7 INR in platelet poor plasma or blood by coagulation as say 1.0 0.8-1.4 Activated partial thromboplastin time (a PTT) in platelet poor plasma bycoagulation assay - 04/07/19 00:25 Activated partial thromboplastin time (a PTT) in platelet poor plasma bycoagulation assay 41 s 24-35 Comprehensive metabolic panel - 04/07/19 00:25 Serum or plasma sodium measurement (moles/volume) 134 mmol/L 135-145 Serum or plasma potassium measurement (moles/volume) 3.8 mmol/L 3.6-5.0 Serum or plasma chloride measurement (moles/volume) 101 mmol/L 98-107 Carbon dioxide 21 mmol/L 21-32 Serum or plasma anion gap determination (moles/volume) 12 mmol/L 5-14 Serum or plasma urea nitrogen measurement (mass/volume ) 35 mg/dL 7-18 Serum or plasma creatinine measurement (mass/volume) 1.39 mg/dL 0.60-1.30 Serum or plasma urea nitrogen/creatinine mass ratio 25 NRG Serum or plasma creatinine measurement w ith calculation of estimated glomerular filtration rate 37 NRG Serum or plasma glucose measurement (mass/volume) 142 mg/dL 70-105 Serum or plasma calcium measurement (mass/volume) 9.3 mg/dL 8.5-10.1 Serum or plasma total bilirubin measurement (mass/volu me) 0.3 mg/dL 0.1-1.0 Serum or plasma alkaline phosphatase solis surement (enzymatic activity/volume) 110 U/L 40-136 Serum or plasma aspartate aminotransfera se measurement (enzymatic activity/volume) 20 U/L 5-34 Serum or plasma alanine aminotransferase measurement (enzymatic activity/volume) 18 U/L 0-55 Serum or plasma protein measurement (mass/volume) 6.4 g/dL 6.4-8.2 Serum or plasma albumin measurement (mass/volume) 4.0 g/dL 3.2-4.5 CALCIUM CORRECTED 9.3 mg/dL 8.5-10.1 Magnesium - 04/07/19 00:25 Magnesium 2.2 mg/dL 1.6-2.4 Serum or plasma creatine kinase measurem ent (enzymatic activity/volume) - 04/07/19 00:25 Serum or plasma creatine kinase measurem ent (enzymatic activity/volume) 45 U/L 29-168 Serum or plasma creatine kinase MB measu rement (enzymatic activity/volume) - 04/07/19 00:25 Serum or plasma creatine kinase MB measu rement (enzymatic activity/volume) 3.7 ng/mL <6.6 Serum or plasma troponin i.cardiac measu rement (mass/volume) - 04/07/19 00:25 Serum or plasma troponin i.cardiac measurement (mass/v olume) < ng/mL <0.028 Myoglobin, serum - 04/07/19 00:25 Myoglobin, serum 65.2 ng/mL 10.0-92.0 Serum or plasma amylase measurement (enz ymatic activity/volume) - 04/07/19 00:25 Serum or plasma amylase measurement (enzymatic activit y/volume) 68 U/L 25-125 Lipase - 04/07/19 00:25 Lipase 94 U/L 8-78 Serum or plasma lithium measurement (mol es/volume) - 04/07/19 00:25 BNP PT 469.3 pg/mL <100.0 Complete urinalysis with reflex to cultu re - 04/07/19 07:55 Urine color determination YELLOW NRG Urine clarity determination SLIGHTLY CLOUDY NRG Urine pH measurement by test strip 7 5-9 Specific gravity of urine by test strip 1.010 1.016-1.022 Urine protein assay by test strip, semi-quantitative NEGATIVE NEGATIVE Urine glucose detection by automated test strip NE GATIVE NEGATIVE Erythrocytes detection in urine sediment by light micr oscopy 5+ NEGATIVE Urine ketones detection by automated test strip NE GATIVE NEGATIVE Urine nitrite detection by test strip NEGATIVE NEGATIVE Urine total bilirubin detection by test strip NEGA TIVE NEGATIVE Urine urobilinogen measurement by automated test strip (mass/volume) NORMAL NORMAL Urine leukocyte esterase detection by dipstick 2+ NEGATIVE Automated urine sediment erythrocyte cou nt by microscopy (number/high power field) TNTC NRG Automated urine sediment leukocyte count by microscopy (number/high power field) [HPF] NRG Bacteria detection in urine sediment by light microsco py NEGATIVE NRG Squamous epithelial cells detection in u rine sediment by light microscopy NONE NRG Crystals detection in urine sediment by light microsco py NONE NRG Casts detection in urine sediment by light microscopy NONE NRG Mucus detection in urine sediment by light microscopy NEGATIVE NRG Complete urinalysis with reflex to culture NO NRG Complete blood count (CBC) with automate d white blood cell (WBC) differential - 04/07/19 08:02 Blood leukocytes automated count (number/volume) 6.7 10*3/uL 4.3-11.0 Blood erythrocytes automated count (number/volume) 4.04 10*6/uL 4.35-5.85 Venous blood hemoglobin measurement (mass/volume) 13.1 g/dL 11.5-16.0 Blood hematocrit (volume fraction) 38 % 35-52 Automated erythrocyte mean corpuscular volume 95 [ foz_us] 80-99 Automated erythrocyte mean corpuscular h emoglobin (mass per erythrocyte) 32 pg 25-34 Automated erythrocyte mean corpuscular h emoglobin concentration measurement (mass/volume) 34 g/dL 32-36 Automated erythrocyte distribution width ratio 12. 5 % 10.0- 14.5 Automated blood platelet count (count/volume) 209 10*3/uL 130-400 Automated blood platelet mean volume measurement 9.2 [foz_us] 7.4-10.4 Automated blood neutrophils/100 leukocytes 67 % 42-75 Automated blood lymphocytes/100 leukocytes 19 % 12-44 Blood monocytes/100 leukocytes 10 % 0-12 Automated blood eosinophils/100 leukocytes 4 % 0-10 Automated blood basophils/100 leukocytes 1 % 0-10 Blood neutrophils automated count (number/volume) 4.4 10*3 1.8-7.8 Blood lymphocytes automated count (number/volume) 1.3 10*3 1.0-4.0 Blood monocytes automated count (number/volume) 0. 7 10*3 0.0-1.0 Automated eosinophil count 0.2 10*3/uL 0 .0-0.3 Automated blood basophil count (count/volume) 0.0 10*3/uL 0.0-0.1 Serum or plasma troponin i.cardiac measu rement (mass/volume) - 04/07/19 08:02 Serum or plasma troponin i.cardiac measurement (mass/v olume) < ng/mL <0.028 Comprehensive metabolic panel - 04/07/19 08:02 Serum or plasma sodium measurement (moles/volume) 139 mmol/L 135-145 Serum or plasma potassium measurement (moles/volume) 3.3 mmol/L 3.6-5.0 Serum or plasma chloride measurement (moles/volume) 97 mmol/L 98-107 Carbon dioxide 28 mmol/L 21-32 Serum or plasma anion gap determination (moles/volume) 14 mmol/L 5-14 Serum or plasma urea nitrogen measurement (mass/volume ) 32 mg/dL 7-18 Serum or plasma creatinine measurement (mass/volume) 1.31 mg/dL 0.60-1.30 Serum or plasma urea nitrogen/creatinine mass ratio 24 NRG Serum or plasma creatinine measurement w ith calculation of estimated glomerular filtration rate 40 NRG Serum or plasma glucose measurement (mass/volume) 100 mg/dL 70-105 Serum or plasma calcium measurement (mass/volume) 10.1 mg/dL 8.5-10.1 Serum or plasma total bilirubin measurement (mass/volu me) 0.5 mg/dL 0.1-1.0 Serum or plasma alkaline phosphatase solis surement (enzymatic activity/volume) 102 U/L 40-136 Serum or plasma aspartate aminotransfera se measurement (enzymatic activity/volume) 22 U/L 5-34 Serum or plasma alanine aminotransferase measurement (enzymatic activity/volume) 20 U/L 0-55 Serum or plasma protein measurement (mass/volume) 7.0 g/dL 6.4-8.2 Serum or plasma albumin measurement (mass/volume) 4.4 g/dL 3.2-4.5 CALCIUM CORRECTED 9.8 mg/dL 8.5-10.1 Myoglobin, serum - 04/07/19 08:02 Myoglobin, serum 65.9 ng/mL 10.0-92.0 Lipid 1996 panel - 04/07/19 08:02 Serum or plasma triglyceride measurement (mass/volume) 105 mg/dL <150 Serum or plasma cholesterol measurement (mass/volume) 295 mg/dL < 200 Serum or plasma cholesterol in HDL measurement (mass/v olume) 74 mg/dL 40-60 Cholesterol in LDL [mass/volume] in serum or plasma by direct assay 222 mg/dL 1-129 Serum or plasma cholesterol in VLDL measurement (mass/ volume) 21 mg/dL 5-40 PT panel in platelet poor plasma by coag ulation assay - 04/07/19 08:02 Prothrombin time (PT) in platelet poor plasma by coagu lation assay 13.9 s 12.2-14.7 INR in platelet poor plasma or blood by coagulation as say 1.0 0.8-1.4 Activated partial thromboplastin time (a PTT) in platelet poor plasma bycoagulation assay - 04/07/19 08:02 Activated partial thromboplastin time (a PTT) in platelet poor plasma bycoagulation assay 38 s 24-35 Complete blood count (CBC) with automate d white blood cell (WBC) differential - 10/09/19 14:20 Blood leukocytes automated count (number/volume) 5.7 10*3/uL 4.3-11.0 Blood erythrocytes automated count (number/volume) 4.10 10*6/uL 4.35-5.85 Venous blood hemoglobin measurement (mass/volume) 13.2 g/dL 11.5-16.0 Blood hematocrit (volume fraction) 40 % 35-52 Automated erythrocyte mean corpuscular volume 97 [ foz_us] 80-99 Automated erythrocyte mean corpuscular h emoglobin (mass per erythrocyte) 32 pg 25-34 Automated erythrocyte mean corpuscular h emoglobin concentration measurement (mass/volume) 33 g/dL 32-36 Automated erythrocyte distribution width ratio 13. 0 % 10.0- 14.5 Automated blood platelet count (count/volume) 228 10*3/uL 130-400 Automated blood platelet mean volume measurement 9.4 [foz_us] 7.4-10.4 Automated blood neutrophils/100 leukocytes 58 % 42-75 Automated blood lymphocytes/100 leukocytes 26 % 12-44 Blood monocytes/100 leukocytes 8 % 0-12 Automated blood eosinophils/100 leukocytes 7 % 0-10 Automated blood basophils/100 leukocytes 1 % 0-10 Blood neutrophils automated count (number/volume) 3.3 10*3 1.8-7.8 Blood lymphocytes automated count (number/volume) 1.5 10*3 1.0-4.0 Blood monocytes automated count (number/volume) 0. 5 10*3 0.0-1.0 Automated eosinophil count 0.4 10*3/uL 0 .0-0.3 Automated blood basophil count (count/volume) 0.1 10*3/uL 0.0-0.1 Comprehensive metabolic panel - 10/09/19 14:20 Serum or plasma sodium measurement (moles/volume) 134 mmol/L 135-145 Serum or plasma potassium measurement (moles/volume) 4.3 mmol/L 3.6-5.0 Serum or plasma chloride measurement (moles/volume) 100 mmol/L 98-107 Carbon dioxide 25 mmol/L 21-32 Serum or plasma anion gap determination (moles/volume) 9 mmol/L 5-14 Serum or plasma urea nitrogen measurement (mass/volume ) 29 mg/dL 7-18 Serum or plasma creatinine measurement (mass/volume) 1.14 mg/dL 0.60-1.30 Serum or plasma urea nitrogen/creatinine mass ratio 25 NRG Serum or plasma creatinine measurement w ith calculation of estimated glomerular filtration rate 47 NRG Serum or plasma glucose measurement (mass/volume) 82 mg/dL 70-105 Serum or plasma calcium measurement (mass/volume) 9.4 mg/dL 8.5-10.1 Serum or plasma total bilirubin measurement (mass/volu me) 0.3 mg/dL 0.1-1.0 Serum or plasma alkaline phosphatase solis surement (enzymatic activity/volume) 128 U/L 40-136 Serum or plasma aspartate aminotransfera se measurement (enzymatic activity/volume) 24 U/L 5-34 Serum or plasma alanine aminotransferase measurement (enzymatic activity/volume) 25 U/L 0-55 Serum or plasma protein measurement (mass/volume) 7.2 g/dL 6.4-8.2 Serum or plasma albumin measurement (mass/volume) 4.5 g/dL 3.2-4.5 CALCIUM CORRECTED 9.0 mg/dL 8.5-10.1 Serum ragweed IgE antibody assay - 10/08 14:20 Serum ragweed IgE antibody assay 236 U/L 125-220 Automated blood complete blood count (he mogram) panel - 11/27/19 15:34 Blood leukocytes automated count (number/volume) 7.1 10*3/uL 4.3-11.0 Blood erythrocytes automated count (number/volume) 4.30 10*6/uL 4.35-5.85 Venous blood hemoglobin measurement (mass/volume) 13.9 g/dL 11.5-16.0 Blood hematocrit (volume fraction) 42 % 35-52 Automated erythrocyte mean corpuscular volume 97 [ foz_us] 80-99 Automated erythrocyte mean corpuscular h emoglobin (mass per erythrocyte) 32 pg 25-34 Automated erythrocyte mean corpuscular h emoglobin concentration measurement (mass/volume) 33 g/dL 32-36 Automated erythrocyte distribution width ratio 13. 2 % 10.0- 14.5 Automated blood platelet count (count/volume) 242 10*3/uL 130-400 Automated blood platelet mean volume measurement 9.3 [foz_us] 7.4-10.4 PT panel in platelet poor plasma by coag ulation assay - 11/27/19 15:34 Prothrombin time (PT) in platelet poor plasma by coagu lation assay 13.1 s 12.2-14.7 INR in platelet poor plasma or blood by coagulation as say 1.0 0.8-1.4 Activated partial thromboplastin time (a PTT) in platelet poor plasma bycoagulation assay - 11/27/19 15:34 Activated partial thromboplastin time (a PTT) in platelet poor plasma bycoagulation assay 48 s 24-35 Comprehensive metabolic panel - 11/27/19 15:34 Serum or plasma sodium measurement (moles/volume) 136 mmol/L 135-145 Serum or plasma potassium measurement (moles/volume) 4.4 mmol/L 3.6-5.0 Serum or plasma chloride measurement (moles/volume) 102 mmol/L 98-107 Carbon dioxide 23 mmol/L 21-32 Serum or plasma anion gap determination (moles/volume) 11 mmol/L 5-14 Serum or plasma urea nitrogen measurement (mass/volume ) 30 mg/dL 7-18 Serum or plasma creatinine measurement (mass/volume) 1.18 mg/dL 0.60-1.30 Serum or plasma urea nitrogen/creatinine mass ratio 25 NRG Serum or plasma creatinine measurement w ith calculation of estimated glomerular filtration rate 45 NRG Serum or plasma glucose measurement (mass/volume) 97 mg/dL 70-105 Serum or plasma calcium measurement (mass/volume) 9.8 mg/dL 8.5-10.1 Serum or plasma total bilirubin measurement (mass/volu me) 0.3 mg/dL 0.1-1.0 Serum or plasma alkaline phosphatase solis surement (enzymatic activity/volume) 123 U/L 40-136 Serum or plasma aspartate aminotransfera se measurement (enzymatic activity/volume) 26 U/L 5-34 Serum or plasma alanine aminotransferase measurement (enzymatic activity/volume) 21 U/L 0-55 Serum or plasma protein measurement (mass/volume) 7.4 g/dL 6.4-8.2 Serum or plasma albumin measurement (mass/volume) 4.5 g/dL 3.2-4.5 CALCIUM CORRECTED 9.4 mg/dL 8.5-10.1 Lipid 1996 panel - 11/27/19 15:34 Serum or plasma triglyceride measurement (mass/volume) 177 mg/dL <150 Serum or plasma cholesterol measurement (mass/volume) 308 mg/dL < 200 Serum or plasma cholesterol in HDL measurement (mass/v olume) 63 mg/dL 40-60 Cholesterol in LDL [mass/volume] in serum or plasma by direct assay 225 mg/dL 1-129 Serum or plasma cholesterol in VLDL measurement (mass/ volume) 35 mg/dL 5-40 Encounters ACCT No. Visit Date/Time Discharge Status Pt. Type Provider Facility Loc./Unit Complaint [id number] 11/19/2019 13:02:00 23:59:59 CLS Outpatient FRANCISCO ROLON V [facility] ONC [id number] 07/19/2019 09:30:00 13:33:00 DIS Outpatient KARLA TRAVIS MD [facility] REHAB URGENCY URINATION [id number] 07/17/2019 10:48:00 020 00:01:00 DIS Outpatient FRANCISCO ROLON [facility] ONC [id number] 04/03/2019 11:04:00 00:01:00 DIS Outpatient FRANCISCO ROLON [facility] ONC [id number] 04/07/2019 02:05:00 12:25:00 DIS Inpatient NICOLE HOFFMAN, PORSHA Bledsoe [facility] 4TH CHEST PAIN;CHF;R LEG SW SONIA [id number] 04/06/2019 13:43:00 16:09:00 DIS Outpatient NIKO HOFFMAN, DARRYL Bledsoe [facility] REHAB IMBALANCE [id number] 03/30/2019 12:38:00 23:59:59 CLS Outpatient ROB REYES DO [facility] ENDO GERD/DYSPHAGIA [id number] 03/27/2019 05:49:00 15:25:00 DIS Outpatient ROB REYES DO [facility] PREOP EGD [id number] 02/21/2019 10:48:00 23:59:59 CLS Outpatient KARLA TRAVIS MD [facility] LAB [id number] 11/30/2018 09:51:00 00:01:00 DIS Outpatient FRANCISCO ROLON [facility] ONC [id number] 10/20/2018 05:49:00 09:59:00 DIS Outpatient ROB REYES DO [facility] SDC LESION SCALP, HX OF DARIUS ANOMA [id number] 10/17/2018 12:10:00 12:17:00 DIS Outpatient ROB REYES DO [facility] PREOP EXCISION SCALP LESION [id number] 10/10/2018 11:02:00 23:59:59 CLS Outpatient EUGENIA YI [facility] CARD MALIGNANT MELAN HALIMA [id number] 10/05/2018 15:18:00 23:59:59 CLS Preadmit EUGENIA YI [facility] RAD MALIGNANT MELANOMA [id number] 07/27/2018 12:53:00 00:01:00 DIS Outpatient FRANCISCO ROLON [facility] ONC [id number] 05/01/2018 11:46:00 23:59:59 CLS Outpatient JASIEL HOFFMAN, GORDON Bernal [facility] RAD C50.919 BREAST CA [id number] 04/21/2018 10:01:00 23:59:59 CLS Outpatient NIKO HOFFMAN, DARRYL Bledsoe [facility] RAD VESTIBULAR NERVE DISOR KEESHA [id number] 04/05/2018 13:58:00 018 00:01:00 DIS Outpatient GORDON WEATHERS MD, [facility] ONC [id number] 03/07/2018 13:30:00 018 14:57:00 DIS Outpatient FRANCISCO ROLON [facility] ONC [id number] 02/09/2018 08:49:00 018 23:59:59 CLS Outpatient KARLA TRAVIS MD [facility] LAB [id number] 01/11/2018 14:50:00 018 00:01:00 DIS Outpatient FRANCISCO ROLON [facility] ONC [id number] 12/21/2017 12:07:00 018 23:59:59 CLS Outpatient EUGENIA YI [employer]ENT [employer]AM[employer]ER [facility] RAD DIZZINESS [id number] 11/17/2017 09:25:00 018 23:59:59 CLS Outpatient KARLA TRAVIS MD [facility] LAB [id number] 10/13/2017 15:30:00 018 17:05:00 DIS Outpatient WILMAR ARAUJO DO [facility] CATH CHEST PAIN;CAD [id number] 09/15/2017 09:09:00 018 00:01:00 DIS Outpatient FRANCISCO ROLON [facility] ONC [id number] 09/23/2017 11:40:00 018 23:59:59 CLS Outpatient EUGENIA YI S [employer] [facility] RAD MALIGNANT MELAN HALIMA [id number] 07/12/2017 08:57:00 017 23:59:59 CLS Outpatient EUGENIA YI S [employer] [facility] RAD C43.59 CA MALIG NANT MELANOMA [id number] 07/07/2017 16:05:00 017 23:59:59 CLS Outpatient EUGENIA YI S [employer] [facility] RAD DIZZINESS R42 [id number] 07/05/2017 14:44:00 017 23:59:59 CLS Preadmit EUGENIA YIP [facility] RT C43.59 CA [id number] 06/08/2017 11:21:00 017 15:19:00 DIS Outpatient JASIEL HOFFMAN, GORDON Bernal [facility] ONC [id number] 06/07/2017 11:51:00 017 23:59:59 CLS Outpatient VERNON HOFFMAN FACKam, SHAQ FACP CC DS [facility] CARD CAD I25.10 [id number] 05/31/2017 07:07:00 017 11:00:00 DIS Outpatient VERNON HOFFMAN FACC, SHAQ FACP CC DS [facility] CATH CAD,HTN,HYP ERLIPIDEMIA [id number] 05/17/2017 07:55:00 017 23:59:59 CLS Outpatient VERNON HOFFMAN FACC, SHAQ SCHULTE CC DS [facility] CARD CAD I25.10 [id number] 04/07/2017 09:11:00 017 00:01:00 DIS Outpatient FRANCISCO ROLON V [facility] ONC [id number] 03/10/2017 09:49:00 017 23:59:59 CLS Outpatient KARLA TRAVIS MD [facility] LAB [id number] 02/03/2017 10:28:00 017 00:01:00 DIS Outpatient FRANCISCO ROLON V [facility] ONC [id number] 02/01/2017 09:01:00 017 23:59:59 CLS Outpatient EUGENIA YIP [facility] RAD CA MALIGNANT ME [place] [id number] 12/22/2016 10:59:00 017 15:18:00 DIS Outpatient SHERRELL HOFFMAN, RIKA Bledsoe [facility] SKIN LESIONS/ HX MELAN HALIMA [id number] 12/16/2016 05:32:00 017 14:17:00 DIS Outpatient SHERRELL HOFFMAN, RIKA Bledsoe [facility] PREOP ECXISIONS LESIONS [id number] 12/07/2016 11:03:00 017 23:59:59 CLS Outpatient KARLA TRAVIS MD Via [facility] LAB LAB [id number] 11/19/2016 15:54:00 017 23:59:59 CLS Outpatient KARLA TRAVIS MD Via [facility] RAD DIZZINESS [id number] 11/08/2016 13:54:00 017 00:01:00 DIS Outpatient FRANCISCO ROLON V ia [facility] ONC [id number] 10/20/2016 14:01:00 017 23:59:59 CLS Outpatient EUGENIA YI LATENT PRINT EXAMINER [facility] RAD BREAST CA [id number] 10/13/2016 11:31:00 017 23:59:59 CLS Outpatient EUGENIA YI LATENT PRINT EXAMINER Via [facility] RAD DIZZY,HEADACHE, GAIT DISTURBANCE [id number] 08/10/2016 10:02:00 017 23:59:59 CLS Outpatient FRANCISCO ROLON V [facility] RAD MALIGNANT MELANOMA [id number] 07/08/2016 09:57:00 017 00:01:00 DIS Outpatient FRANCISCO ROLON V [facility] ONC [id number] 04/16/2016 10:30:00 016 16:39:00 DIS Outpatient FRANCISCO ROLON V [facility] ONC [id number] 04/16/2016 14:27:00 016 23:59:59 CLS Outpatient EUGENIA YI S LATENT PRINT EXAMINER Via [facility] RAD CA,HYPERBILIRUB INEMIA [id number] 04/16/2016 12:53:00 016 23:59:59 CLS Outpatient EUGENIA YI S LATENT PRINT EXAMINER Via [facility] RAD [id number] 04/06/2016 09:42:00 23:59:59 CLS Outpatient KARLA TRAVIS MD [facility] LAB [id number] 03/11/2016 14:11:00 23:59:59 CLS Outpatient FRANCISCO ROLON [facility] RAD ABNORMAL PET SCAN [id number] 03/09/2016 09:03:00 23:59:59 CLS Outpatient EUGENIA YI LATENT PRINT EXAMINER [facility] RAD MALIGNANT MELAN HALIMA [id number] 03/02/2016 10:34:00 23:59:59 CLS Outpatient VERNON HOFFMAN FACC, SHAQ SCHULTE CC DS [facility] CARD CAD,CA,RODRÍGUEZ TID ARTERY DISEASE,CKD,HLP [id number] 03/02/2016 10:11:00 23:59:59 CLS Outpatient EUGENIA YIP [facility] ONC [id number] 02/09/2016 15:02:00 016 16:31:00 DIS Emergency LYRIC DO, EILEEN K Vi [facility] ER FALL/RIGHT EYEBROW LAC [id number] 02/02/2016 13:04:00 016 00:01:00 DIS Outpatient FRANCISCO ROLON [facility] ONC [id number] 02/02/2016 13:18:00 016 23:59:59 CLS Outpatient KARLA TRAVIS MD [facility] LAB [id number] 02/02/2016 13:09:00 016 23:59:59 CLS Outpatient EUGENIA YI LATENT PRINT EXAMINER [facility] ONC [id number] 01/06/2016 16:49:00 016 23:59:59 CLS Outpatient EUGENIA YI LATENT PRINT EXAMINER [facility] RAD LEG SWELLING [id number] 01/06/2016 13:17:00 016 23:59:59 CLS Outpatient EUGENIA YI LATENT PRINT EXAMINER [facility] ONC [id number] 11/27/2015 17:23:00 17:25:00 DIS Inpatient FRANCISCO ROLON [facility] 4TH SWB FEVER,RASH [id number] 11/24/2015 11:58:00 16:53:00 DIS Inpatient FRANCISCO ROLON [facility] 4TH FEVER,RASH,RULE OUT INF ECTION VS MEDICATION [id number] 11/21/2015 10:00:00 23:59:59 CLS Outpatient EUGENIA YI S LATENT PRINT EXAMINER Via [facility] ONC [id number] 11/14/2015 15:31:00 23:59:59 CLS Outpatient YI, HILAH S LATENT PRINT EXAMINER [facility] ONC [id number] 10/31/2015 10:57:00 23:59:59 CLS Outpatient YI, HILAH S LATENT PRINT EXAMINER Via [facility] ONC [id number] 10/28/2015 11:13:00 23:59:59 CLS Outpatient YI, HILAH S LATENT PRINT EXAMINER Via [facility] RAD MALIGNANT MELAN HALIMA [id number] 10/22/2015 14:54:00 00:01:00 DIS Outpatient ОЛЬГАFRANCISCO MAE Tarah Dolores ia [facility] ONC [id number] 10/22/2015 15:00:00 23:59:59 CLS Outpatient EUGENIA YI S LATENT PRINT EXAMINER [facility] ONC [id number] 10/07/2015 14:00:00 23:59:59 CLS Outpatient EUGENIA YI S LATENT PRINT EXAMINER Via [facility] ONC [id number] 09/26/2015 09:29:00 14:15:00 DIS Outpatient RIKA WYNNE MD Via [facility] SDC CANCER [id number] 09/23/2015 07:17:00 14:07:00 DIS Outpatient RIKA WYNNE MD [facility] PREOP CANCER [id number] 09/08/2015 13:10:00 016 23:59:59 CLS Outpatient EUGENIA YI S LATENT PRINT EXAMINER Via [facility] ONC [id number] 09/04/2015 19:28:00 016 14:25:00 DIS Inpatient ОЛЬГА FRANCISCO Uriostegui a [facility] 4TH INTRACTABLE VOMITING [id number] 08/29/2015 06:23:00 016 10:30:00 DIS Outpatient SHERRELL HOFFMAN, RIKA Bledsoe [facility] SDC LESION RIGHT LOWER VANESSA K [id number] 08/26/2015 12:40:00 016 23:59:59 CLS Outpatient RIKA WYNNE MD Via [facility] PREOP LESION RIGHT LOWER VANESSA K [id number] 08/11/2015 13:00:00 016 23:59:59 CLS Outpatient EUGENIA YI S LATENT PRINT EXAMINER Via [facility] ONC [id number] 07/28/2015 12:57:00 016 23:59:59 CLS Outpatient EUGENIA YI S LATENT PRINT EXAMINER Via [facility] ONC [id number] 07/22/2015 09:06:00 016 00:01:00 DIS Outpatient FRANCISCO ROLON V [facility] ONC [id number] 07/15/2015 14:47:00 23:59:59 CLS Outpatient YI, HILAH S LATENT PRINT EXAMINER Via [facility] ONC [id number] 07/07/2015 11:44:00 015 23:59:59 CLS Outpatient YI, HILAH S LATENT PRINT EXAMINER [facility] CARD MALIGNANT MELAN HALIMA [id number] 06/25/2015 13:16:00 015 23:59:59 CLS Outpatient EUGENIA YI S LATENT PRINT EXAMINER [facility] ONC [id number] 05/22/2015 15:42:00 015 16:16:00 DIS Inpatient KARLA TRAVIS MD [facility] 4TH SWB ENCEPHALITIS [id number] 05/07/2015 21:04:00 15:31:00 DIS Inpatient KARLA TRAVIS MD [facility] 4TH HYPONATREMIA, FEVER OF UNKNOWN ORIGIN [id number] 04/28/2015 14:38:00 23:59:59 CLS Outpatient EUGENIA YI LATENT PRINT EXAMINER [facility] ONC [id number] 03/31/2015 09:29:00 015 00:01:00 DIS Outpatient FRANCISCO ROLON V [facility] ONC [id number] 02/07/2015 11:04:00 23:59:59 CLS Outpatient EUGENIA YI LATENT PRINT EXAMINER [facility] ONC [id number] 01/28/2015 08:19:00 015 00:01:00 DIS Outpatient FRANCISCO ROLON V [facility] ONC [id number] 01/28/2015 08:37:00 23:59:59 CLS Outpatient KARLA TRAVIS MD [facility] LAB [id number] 01/23/2015 12:49:00 23:59:59 CLS Outpatient EUGENIA YIP [facility] CARD CAD,CARDIOTOXIC MEDS [id number] 01/13/2015 14:55:00 015 23:59:59 CLS Outpatient EUGENIA YI LATENT PRINT EXAMINER [facility] ONC [id number] 01/12/2015 05:00:00 015 11:40:00 DIS Inpatient KARLA TRAVIS MD [facility] ICU CHEST PAIN [id number] 01/07/2015 14:32:00 015 23:59:59 CLS Outpatient EUGENIA YI LATENT PRINT EXAMINER [facility] RAD [id number] 01/07/2015 13:38:00 23:59:59 CLS Outpatient EUGENIA YI LATENT PRINT EXAMINER [facility] ONC [id number] 01/03/2015 10:09:00 015 23:59:59 CLS Outpatient EUGENIA YI LATENT PRINT EXAMINER [facility] ONC [id number] 12/23/2014 14:23:00 23:59:59 CLS Outpatient EUGENIA YI LATENT PRINT EXAMINER [facility] ONC [id number] 12/19/2014 13:41:00 23:59:59 CLS Outpatient EUGENIA YI LATENT PRINT EXAMINER [facility] CARD CARDIOTOXIC TAMMY G [id number] 10/31/2014 12:58:00 23:59:59 CLS Outpatient FRANCISCO ROLON [facility] RAD C MALIGNANT MELANOMA [id number] 10/29/2014 13:13:00 23:59:59 CLS Outpatient EUGENIA YI LATENT PRINT EXAMINER Via [facility] RAD ABNORMAL MRI,HX OF MELANOMA AND BREAST CA [id number] 10/25/2014 08:55:00 23:59:59 CLS Outpatient EUGENIA YI LATENT PRINT EXAMINER [facility] RAD BREAST CA, BACK PAIN [id number] 10/23/2014 14:04:00 23:59:59 CLS Outpatient EUGENIA YI LATENT PRINT EXAMINER [facility] ONC [id number] 07/22/2014 09:27:00 015 00:01:00 DIS Outpatient FRANCISCO ROLON [facility] ONC [id number] 08/21/2014 16:20:00 23:59:59 CLS Outpatient KARLA TRAVIS MD [facility] RAD RT ANKLE PAIN [id number] 07/15/2014 10:43:00 014 23:59:59 CLS Outpatient FRANCISCO ROLON [facility] CARD MELANOMA,HX BREAST CA [id number] 04/22/2014 14:48:00 014 00:01:00 DIS Outpatient FRANCISCO ROLON V [facility] ONC [id number] 02/26/2014 09:59:00 23:59:59 CLS Outpatient EUGENIA YI LATENT PRINT EXAMINER [facility] RAD SCREENING [id number] 02/05/2014 18:38:00 21:31:00 DIS Emergency LICHA CHAVARRIA [employer]RI[employer] [facility] ER ABD PAIN [id number] 2014 09:33:00 23:59:59 CLS Outpatient EUGENIA YI LATENT PRINT EXAMINER [facility] RAD ABNORMAL PET [id number] 01/09/2014 08:46:00 23:59:59 CLS Outpatient EUGENIA YI LATENT PRINT EXAMINER [facility] RAD HEADACHE,GAIT D ISTURBANCE [id number] 01/01/2014 10:47:00 23:59:59 CLS Outpatient EUGENIA YI LATENT PRINT EXAMINER [facility] RAD MALIGNANT MELAN HALIMA [id number] 12/24/2013 13:56:00 23:59:59 CLS Outpatient EUGENIA YI LATENT PRINT EXAMINER [facility] ONC [id number] 09/24/2013 14:13:00 014 00:01:00 DIS Outpatient FRANCISCO ROLON V [facility] ONC [id number] 09/18/2013 12:05:00 23:59:59 CLS Outpatient FRANCISCO ROLON V [facility] RAD MALIGNANT MELANOMA [id number] 09/03/2013 21:10:00 014 15:11:00 DIS Inpatient RIKA WYNNE MD [facility] SURGICAL ABDOMINAL PAIN/ POST OP MELANOMA RESECTION [id number] 08/29/2013 07:32:00 18:45:00 DIS Outpatient RIKA WYNNE MD [facility] RAD MELANOMA ON LFT LAT FL ANK [id number] 08/24/2013 09:30:00 014 23:59:59 CLS Outpatient SHERRELL HOFFMAN, RIKA Bledsoe [facility] PREOP MELANOMA/LESIONS [id number] 04/02/2013 13:58:00 013 23:59:59 CLS Outpatient FRANCISCO ROLON Tarah Bernal ia [facility] ONC [id number] 03/05/2013 11:31:00 013 23:59:59 CLS Outpatient ALEXSANDER LUNAP [facility] RAD CAD,DYSPNEA [id number] 02/15/2013 07:09:00 013 23:59:59 CLS Outpatient GILBERT HOWARD APRN [facility] RAD SCREENING [id number] 12/27/2019 11:00:00 P EN Preadmit EUGENIA YI LATENT PRINT EXAMINER [facility] CARD MALIGNANT MELANOMA [id number] 11/27/2019 15:00:00 P EN Preadmit VERNON HOFFMAN FACC, SHAQ SCHULTE CCDS [facility] CATH ANGINA,CAD,HTN,FATIGUE,SOB [id number] 07/07/2015 11:43:00 Document Registration [id number] 05/05/2015 13:12:00 Document Registration [id number] 03/19/2015 08:33:00 Document Registration [id number] 11/06/2012 15:26:00 Document Registration [id number] 10/25/2012 09:54:00 Document Registration [id number] 07/24/2012 11:18:00 Document Registration [id number] 03/30/2012 12:56:00 Document Registration [id number] 02/26/2012 10:28:00 Document Registration [id number] 02/15/2012 07:21:00 Document Registration [id number] 01/25/2012 16:01:00 Document Registration [id number] 03/25/2011 13:26:00 Document Registration [id number] 02/08/2011 07:58:00 Document Registration [id number] 09/14/2010 13:21:00 Document Registration [id number] 08/08/2010 23:15:00 Document Registration [id number] 08/07/2010 12:53:00 Document Registration [id number] 04/21/2010 12:32:00 Document Registration [id number] 04/15/2010 16:03:00 Document Registration [id number] 03/26/2010 13:13:00 Document Registration [id number] 02/05/2010 07:03:00 Document Registration [id number] 06/26/2009 00:00:00 Document Registration
[2019-11-27] MEDS ORDERED: fentaNYL INJECTION 100 MCG/2 ML AMP ONE (17:58)
[2019-11-27] MEDS ORDERED: MIDAZOLAM 5 MG/5 ML (VERSED) VIAL ONE (17:59)
--- NOTE | 2019-11-27 19:08 | Cardiac Procedure Note-CS/ASA ---
Pre-Procedure Note Pre-Op Procedure Note H&P Reviewed The H&P was reviewed, patient examined and no changes noted. Date H&P Reviewed: November 27, 2019 Time H&P Reviewed: 18:30 Conscious Sedation Pre-Proced Time 18:30 ASA Score 3 For ASA 3 and 4: Consider anesthesia and medical clearance. Also, for patients with a history of failed moderate sedation consider anesthesia. Airway Lungs Heart ASA score ASA 1: a normal healthy patient ASA 2: a patient with a mild systemic disease (mid diabetes, controlled hypertension, obesity ASA 3: a patient with a severe systemic disease that limits activity (angina, COPD, prior Myocardial infarction) ASA 4: a patient with an incapacitating disease that is a constant threat to life (CHF, renal failure) ASA 5: a moribund patient not expected to survive 24 hrs. (ruptured aneurysm) ASA 6: a declared brain- patient whose organs are being harvested. For emergent operations, add the letter E after the classification Mallampati Classification Grade 2 Sedation Plan Analgesia, Amnesia, Plan communicated to team members, Discussed options with patient/fam, Discussed risks with patient/fam The patient is an appropriate candidate to undergo the planned procedure, sedation, and anesthesia. The patient immediately re-assessed prior to indication. SHAQ JUNIOR MD FACP FAC CCDS November 27, 2019 19:08
--- NOTE | 2019-11-27 19:12 | Discharge Inst-Cardiology ---
Discharge Inst-Cardiac Discharge Medications Continued Medications: Acetaminophen (Tylenol Arthritis) 650 Mg Tablet.er 650 MG PO Q8H PRN for PAIN-MILD, TAB Acyclovir (Acyclovir) 400 Mg Tablet 400 MG PO BID, TAB Amlodipine Besylate (Amlodipine Besylate) 5 Mg Tablet 5 MG PO DAILY, TAB Aspirin (Aspirin) 325 Mg Tablet 325 MG PO DAILY, TAB Clopidogrel Bisulfate (Plavix) 75 Mg Tablet 75 MG PO DAILY, TAB Famotidine (Acid Dock Boss (FAMOTIDINE)) 20 Mg Tablet 20 MG PO BID, TAB Ferrous Sulfate (Ferrous Sulfate) 325 Mg Tablet.dr 325 MG PO DAILY, TAB Fexofenadine HCl (Fexofenadine HCl) 60 Mg Tablet 60 MG PO BID, TAB Hyoscyamine Sulfate (Hyoscyamine Sulfate) 0.125 Mg Tablet 0.125 MG PO DAILY, TAB Levothyroxine Sodium (Levothyroxine Sodium) 75 Mcg Tablet 75 MCG PO DAILY, TAB Pantoprazole Sodium (Pantoprazole Sodium) 40 Mg Tablet.dr 40 MG PO DAILY, TAB Polyethylene Glycol 3350 (Miralax) 17 Gm Powd.pack 17 GM PO DAILY, EACH Sucralfate (Carafate) 1 Gm Tablet 1 GM PO QID, #60 TAB Triamcinolone Acet (Triamcinolone Acetonide 0.1% Cream) 15 Gm Cr 15 GM TP TID, TUBE Vemurafenib (Zelboraf) 240 Mg Tablet 240 MG PO BID, TAB Venlafaxine HCl (Effexor Xr) 150 Mg Cap.er.24h 150 MG PO DAILY, SHAQ MORENO MD FACP FAC CCDS November 27, 2019 19:12
--- NOTE | 2019-11-27 19:12 | Discharge Inst-Post CATH ---
Discharge Inst-CATH/EP Post Cardiac Cath/EP D/C Inst Follow Up/Plan F/u with Dr Hill in 2 weeks ACTIVITY * Go Home directly and rest. * Limit activity of the leg (or wrist if it was used) for 7 days including aerobics, swimming, jogging, bicycling, etc. * Restrict stair-climbing for 7 days if possible, if not, climb up with your n on-cath leg, then bring together on the same step. * Avoid lifting, pushing, pulling or excessive movement of the affected ex tremity for 7 days. * Customary sexual activity may be resumed after 2 days-use caution not to use a position that strains or causes pain to the affected extremity. * No driving for 24 hours. * NO SMOKING. * Avoid straining for bowel movements for 7 days. * Gentle walking on level ground is allowed. * Returning to work will depend on the type of procedure and the results. Your doctor will discuss this with you. CALL YOUR DOCTOR FOR ANY OF THE FOLLOWING: *If bleeding from the puncture site occurs- Apply gentle pressure to site with clean cloth and call your doctor or EMS. * If a knot or lump forms under the skin, increases in size, or causes pain. * If bruising appears to be worsening or moving further down your leg instead of disappearing. * Temperature above 101 F. CARE OF YOUR GROIN INCISION; * Bruising or purple discoloration of the skin near the puncture site is common. * You may shower only, no bathtub bathing for 5 days. Be careful to avoid slipping as your leg may feel stiff. * If a closure device was used on your femoral artery, please see the attached guide regarding care of the device and your leg. * Leave dressing on FOR 24 hours. CARE OF YOUR WRIST INCISION; * Bruising or purple discoloration of the skin near the puncture site is common. * You may shower. * DO NOT submerge wrist. * Leave dressing on FOR 24 hours. SHAQ HILL MD FACP FAC CCDS November 27, 2019 19:12
[2019-11-27] MEDS ORDERED: PATIENT MAY USE OWN MEDS, ALL PO SCH (19:15)
--- NOTE | 2019-11-27 19:22 | CARDIAC CATHETERIZATION ---
DATE OF SERVICE: 11/27/2019 CARDIAC CATHETERIZATION REPORT INDICATION: The patient is a 74-year-old lady who has a history of coronary artery disease and has had coronary artery bypass surgery and percutaneous coronary interventions. She has been noticing recurrent symptoms that are reminiscent of previous angina. Cardiac catheterization was carried out today after having obtained an informed consent. DESCRIPTION OF PROCEDURE: She was brought to the cardiac catheterization laboratory in a fasting state. Right groin was prepared and draped in the usual sterile fashion. Lidocaine 1% was used for local anesthesia. Modified Seldinger technique was used to advance a 5-Malian sheath into the right femoral artery. A 5-Malian JL3.5 catheter was used for left coronary angiography. A 5-Malian JR4 catheter was used for right coronary angiography. A 5-Malian pigtail catheter was used for left heart catheterization and left ventricular angiography. We used a 5-Malian JR4 catheter for angiography of the saphenous vein graft to the coronaries. At the end of the procedure, following removal of the diagnostic catheters, angiography of the right femoral artery was carried out and Mynx was used to achieve hemostasis. HEMODYNAMICS: Left ventricular end-diastolic pressure following coronary angiography was 23 mmHg. There was no significant pressure gradient on pullback across the aortic valve. Ascending aortic pressure was 155/65 with a mean 101 mmHg. CORONARY ANGIOGRAPHY: There is diffuse coronary calcification. Left main coronary artery has approximately 30% proximal stenosis. Left anterior descending artery has diffuse moderate to moderately severe disease. There is approximately 60% long stenosis in the left anterior descending. This is the site of previous balloon angioplasty in 2017. This does not appear significantly changed compared to the study of 2018. The right coronary artery is known to be chronically occluded and was not selectively engaged at this time. The left circumflex artery has diffuse moderate disease and is of a small caliber. The left anterior descending artery is also a small caliber. SAPHENOUS VEIN GRAFT ANGIOGRAPHY: The more cephalic saphenous vein graft is to the left anterior descending artery and is occluded at its ostium. The more caudal graft is to the distal right coronary artery and is ectatic, but widely patent and does not exhibit significant obstructive disease. There is good distal flow in the right coronary and the right coronary artery also supplies right to left collaterals. The left internal mammary artery has not been used at the time of the surgery. It was reported to have been clipped. LEFT VENTRICULAR ANGIOGRAPHY: Left ventricular angiography was carried out in the right anterior oblique projection. There is apical hypokinesis. Left ventricular ejection fraction approximately 45% to 50%. CONCLUSIONS: 1. Coronary artery disease consisting of diffuse moderate to moderately severe disease of the left coronary system and 60% mid vessel stenosis of the left anterior descending artery, which is the site of previous balloon angioplasty in 2017 and has not significantly changed compared to the study in 2018. Right coronary artery is chronically occluded. 2. Occluded saphenous vein graft to the left anterior descending. 3. Patent saphenous vein graft to distal right coronary. 4. Left ventricular ejection fraction is 45% to 50%. 5. Apical hypokinesis. DISCUSSION AND RECOMMENDATIONS: Based on results of the study, it appears appropriate to continue a conservative approach. Risk factor modification has been reviewed. Current regimen is being continued and outpatient followup is advised for further titration of medications, if needed. Job ID: [id number] DocumentID: [id number] Dictated Date: 11/27/2019 18:59:18 Vertical Borer Date: 11/27/2019 19:21:59 Dictated By: SHAQ JUNIOR MD, MA, FACP, FACC,
--- NOTE | 2019-11-27 19:30 | NUR ---
KENNY KEYES admitted to room , with an admitting diagnosis of POST CARDIAC CATH, on 11/27/19 from CARDIAC CATHERIZATION via BED, accompanied by STAFF.KENNY KEYES introduced to surroundings, call light, bed controls, phone, TV, temperature control, lights, meal times, smoking policy, visitor policy, side rail policy, bathrooms and showers. Patient Rights given to patient in the handbook.KENNY KEYES verbalizes understanding that [facility] is not responsible for the loss or damage to any personal effects or valuables that are kept in the patients posession during their hospitalization. The following Patient Care Plans were discussed with the PATIENT: Discharge Planning, and CARDIAC CATHERIZATION. KENNY KEYES verbalizes understanding of Interdisciplinary Patient Education. Patient and/or family were informed about the Rapid Response Team and its purpose.
--- NOTE | 2019-11-27 23:55 | NUR ---
KENNY KEYES demonstrates understanding of discharge instructions and accurately returns instructions upon questioning. Copy of Post-Discharge Instructions given to . KENNY KEYES is able to manage continuing needs after discharge. Patients belongings returned to KENNY KEYES . Patient discharged from [facility]- on 11-27-2019 at 2352. KENNY KEYES left floor via WC, accompanied by STAFF.
== END 2019-11-27 23:52 | disposition home or self-care (01) ==
LOC: CATH 13:05 → CSD 19:30 → CATH 23:52
PROVIDERS: ATTEND Internal Medicine Cardiovascular Disease
DX: I25.10 Atherosclerotic heart disease of native coronary artery without angina pectoris (principal); I25.810 Atherosclerosis of coronary artery bypass graft(s) without angina pectoris; I12.9 Hypertensive chronic kidney disease with stage 1 through stage 4 chronic kidney disease, or unspecified chronic kidney disease; N18.3 Chronic kidney disease, stage 3 (moderate); E80.6 Other disorders of bilirubin metabolism; I95.9 Hypotension, unspecified; E78.5 Hyperlipidemia, unspecified; G62.9 Polyneuropathy, unspecified; E03.9 Hypothyroidism, unspecified; I73.9 Peripheral vascular disease, unspecified; I77.9 Disorder of arteries and arterioles, unspecified; R26.9 Unspecified abnormalities of gait and mobility; T50.905A Adverse effect of unspecified drugs, medicaments and biological substances, initial encounter; Z88.1 Allergy status to other antibiotic agents; Z79.899 Other long term (current) drug therapy; Z88.7 Allergy status to serum and vaccine; Z88.8 Allergy status to other drugs, medicaments and biological substances; Z88.6 Allergy status to analgesic agent; Z79.82 Long term (current) use of aspirin; Z90.49 Acquired absence of other specified parts of digestive tract; Z90.10 Acquired absence of unspecified breast and nipple; Z79.02 Long term (current) use of antithrombotics/antiplatelets; Z85.820 Personal history of malignant melanoma of skin; Z85.3 Personal history of malignant neoplasm of breast; Z88.5 Allergy status to narcotic agent
CPT/HCPCS: 36415; 80053; 80061; 85027; 85610; 85730; 87081; 93459

== ENCOUNTER → 2019-12-27 | Outpatient (CLI) | payer MEDICARE, OTHER ==
[~2019-12-27] MED LIST changes: +AMLO5TAB9 PO; +BARIUM SUSPENSION 2.1% (VANILLA SILQ) 450 ML PO ONE; +CATHETER FLUSH 10 ML SYR IV PRN; +FAMO20TA3 PO; +FEXO-45 PO; +HOLD METFORMIN - RECEIVED CONTRAST 20 ML VIAL IV SCH; +IOHEXOL 350 MG/ML 100 ML (OMNIPAQUE 350) VIAL IV ONE; +NS 100 ML (IVPB) BAG IV ONE; +TR1C15 TP
--- NOTE | 2019-12-27 13:30 | Diagnostic Imaging Report ---
INDICATION: Melanoma. TECHNIQUE: Multiple contiguous axial images were obtained through the chest and abdomen after the administration of intravenous contrast. Auto Exposure Controls were utilized during the CT exam to meet ALARA standards for radiation dose reduction. COMPARISON: CT of the chest and abdomen obtained and compared to 10/10/2018. FINDINGS: CT chest: There are no pleural or pericardial effusions. There are no enlarged mediastinal or hilar nodes. Patient has had previous sternotomy and coronary bypass. There are coronary artery calcifications. There are multiple surgical clips over the left axilla but no discrete adenopathy at this time. This appearance has not changed compared to the prior study. Lung parenchymal windows demonstrate some linear scarring in the right medial base and right lateral base. There is a small nodule in the left upper lobe on image 14 of series 2, measuring about 4 mm. There is a small nodule in a subpleural location in the right lower lobe laterally, measuring about 5 mm in long axis diameter, seen best on image 35 of series 2. The left upper lobe lesion appears similar to the previous study. The right lower lobe lesion was not seen previously. CT abdomen: The liver shows no focal lesion. Patient has had cholecystectomy. The spleen shows an enhancing lesion inferiorly measuring about 1.5 cm. This may represent hemangioma. This was not seen on the previous study since contrast was not given, but was seen on previous contrast study of 07/07/2015 and therefore likely a benign finding. The adrenals and pancreas and kidneys appear normal. There is no retroperitoneal mass or adenopathy. There is prominent stool throughout the colon. There is presumed postoperative change at the GE junction, correlate clinically. IMPRESSION: CT chest demonstrates a new small nodule in the right lower lobe in a subpleural location, measuring about 5 mm. There is a stable small left upper lobe nodule measuring about 4 mm. Extensive previous coronary bypass. There is no mediastinal or hilar adenopathy or pleural fluid. There are surgical clips in the left axilla which are unchanged with no new chest wall abnormality. 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 There is no adenopathy. There is prominent stool throughout the colon. Dictated by: Dictated on workstation # [id number]
--- NOTE | 2019-12-27 17:59 | Diagnostic Imaging Report ---
INDICATION: Malignant melanoma. TECHNIQUE: The patient was administered 27.0 mCi technetium 99m MDP. Anterior and posterior whole-body planar images are obtained. CORRELATION STUDY: 10/10/2018 FINDINGS: Appears to be generally normal uptake and distribution of radiotracer throughout the visualized osseous structures. Likely mild degenerative uptake about the spine as well as over the right sacroiliac joint. Mild degenerative uptake about the knees as well as feet and ankles. There is physiologic uptake by the kidneys, excretion into the urinary bladder. The superior bony calvarium is not included in the area imaged. IMPRESSION: 1. Stable, negative appearing whole body bone scan. Dictated by: Dictated on workstation # [id number]
== END ==
LOC: CARD 10:09
PROVIDERS: ATTEND Nurse Practitioner Adult Health
DX: C43.59 Malignant melanoma of other part of trunk (principal); R92.8 Other abnormal and inconclusive findings on diagnostic imaging of breast
CPT/HCPCS: 71260; 74160; 78306; A9503

== ENCOUNTER 2020-02-19 08:53 | Outpatient (RCR) | payer MEDICARE, OTHER ==
[2020-01-01 09:26] LABS: BASOPHILS % (AUTO) 1 % (0-10); EOSINOPHILS # (AUTO) 0.4 10^3/uL (0.0-0.3); EOSINOPHILS % (AUTO) 8 % (0-10); HEMATOCRIT 41 % (35-52); HEMOGLOBIN 13.7 G/DL (11.5-16.0); LYMPHOCYTES # (AUTO) 0.9 X 10^3 (1.0-4.0); LYMPHOCYTES % (AUTO) 16 % (12-44); MEAN CORPUSCULAR HEMOGLOBIN 32 PG (25-34); MEAN CORPUSCULAR HGB CONC 34 G/DL (32-36); MEAN CORPUSCULAR VOLUME 97 FL (80-99); MEAN PLATELET VOLUME 9.4 FL (7.4-10.4); MONOCYTES # (AUTO) 0.4 X 10^3 (0.0-1.0); MONOCYTES % (AUTO) 8 % (0-12); NEUTROPHILS # (AUTO) 3.6 X 10^3 (1.8-7.8); NEUTROPHILS % (AUTO) 68 % (42-75); PLATELET COUNT 231 10^3/uL (130-400); WHITE BLOOD COUNT 5.3 10^3/uL (4.3-11.0)
[2020-01-01 09:55] LABS: ALBUMIN 4.4 GM/DL (3.2-4.5); BILIRUBIN,TOTAL 0.4 MG/DL (0.1-1.0); CREATININE SERUM 1.25 MG/DL (0.60-1.30); POTASSIUM 4.5 MMOL/L (3.6-5.0); TOTAL PROTEIN 7.2 GM/DL (6.4-8.2)
[~2020-02-19 08:53] MED LIST changes: -BARIUM SUSPENSION 2.1% (VANILLA SILQ) 450 ML PO ONE; -CATHETER FLUSH 10 ML SYR IV PRN; -HOLD METFORMIN - RECEIVED CONTRAST 20 ML VIAL IV SCH; -IOHEXOL 350 MG/ML 100 ML (OMNIPAQUE 350) VIAL IV ONE; -NS 100 ML (IVPB) BAG IV ONE
[2020-02-19 09:16] LABS: BASOPHILS % (AUTO) 1 % (0-10); EOSINOPHILS # (AUTO) 0.4 10^3/uL (0.0-0.3); EOSINOPHILS % (AUTO) 6 % (0-10); HEMATOCRIT 41 % (35-52); HEMOGLOBIN 13.5 G/DL (11.5-16.0); LYMPHOCYTES % (AUTO) 16 % (12-44); MEAN CORPUSCULAR HEMOGLOBIN 32 PG (25-34); MEAN CORPUSCULAR HGB CONC 33 G/DL (32-36); MEAN CORPUSCULAR VOLUME 97 FL (80-99); MEAN PLATELET VOLUME 9.6 FL (7.4-10.4); MONOCYTES # (AUTO) 0.3 X 10^3 (0.0-1.0); MONOCYTES % (AUTO) 5 % (0-12); NEUTROPHILS # (AUTO) 4.2 X 10^3 (1.8-7.8); NEUTROPHILS % (AUTO) 72 % (42-75); PLATELET COUNT 238 10^3/uL (130-400); WHITE BLOOD COUNT 5.8 10^3/uL (4.3-11.0)
[2020-02-19 09:39] LABS: ALBUMIN 4.2 GM/DL (3.2-4.5); BILIRUBIN,TOTAL 0.4 MG/DL (0.1-1.0); CREATININE SERUM 1.31 MG/DL (0.60-1.30); POTASSIUM 4.6 MMOL/L (3.6-5.0); TOTAL PROTEIN 6.9 GM/DL (6.4-8.2)
[2020-04-01 13:45] LABS: BASOPHILS % (AUTO) 1 % (0-10); EOSINOPHILS # (AUTO) 0.3 10^3/uL (0.0-0.3); EOSINOPHILS % (AUTO) 5 % (0-10); HEMATOCRIT 40 % (35-52); HEMOGLOBIN 13.7 G/DL (11.5-16.0); LYMPHOCYTES # (AUTO) 1.4 X 10^3 (1.0-4.0); LYMPHOCYTES % (AUTO) 21 % (12-44); MEAN CORPUSCULAR HEMOGLOBIN 33 PG (25-34); MEAN CORPUSCULAR HGB CONC 34 G/DL (32-36); MEAN CORPUSCULAR VOLUME 95 FL (80-99); MEAN PLATELET VOLUME 9.8 FL (7.4-10.4); MONOCYTES # (AUTO) 0.5 X 10^3 (0.0-1.0); MONOCYTES % (AUTO) 7 % (0-12); NEUTROPHILS # (AUTO) 4.4 X 10^3 (1.8-7.8); NEUTROPHILS % (AUTO) 66 % (42-75); PLATELET COUNT 233 10^3/uL (130-400); WHITE BLOOD COUNT 6.7 10^3/uL (4.3-11.0)
[2020-04-01 14:01] LABS: ALBUMIN 4.4 GM/DL (3.2-4.5); BILIRUBIN,TOTAL 0.4 MG/DL (0.1-1.0); CALCIUM 9.4 MG/DL (8.5-10.1); CREATININE SERUM 1.28 MG/DL (0.60-1.30); POTASSIUM 4.6 MMOL/L (3.6-5.0); TOTAL PROTEIN 7.3 GM/DL (6.4-8.2)
== END 2020-03-31 | disposition home or self-care (01) ==
LOC: ONC 08:53
PROVIDERS: ATTEND Internal Medicine Hematology & Oncology
DX: C43.59 Malignant melanoma of other part of trunk (principal); C77.3 Secondary and unspecified malignant neoplasm of axilla and upper limb lymph nodes; C79.89 Secondary malignant neoplasm of other specified sites; I25.10 Atherosclerotic heart disease of native coronary artery without angina pectoris; I12.9 Hypertensive chronic kidney disease with stage 1 through stage 4 chronic kidney disease, or unspecified chronic kidney disease; N18.3 Chronic kidney disease, stage 3 (moderate); E78.5 Hyperlipidemia, unspecified; E03.9 Hypothyroidism, unspecified; Z79.899 Other long term (current) drug therapy; Z92.21 Personal history of antineoplastic chemotherapy; Z92.3 Personal history of irradiation; Z85.3 Personal history of malignant neoplasm of breast; Z98.890 Other specified postprocedural states
CPT/HCPCS: 80053; 83615; 85025; 93005; G0463; 36591

== ENCOUNTER → 2020-04-22 | Outpatient (CLI) | payer MEDICARE, OTHER ==
[~2020-04-22] MED LIST changes: -PANT40TA3 PO; +PANT40TA52 PO
--- NOTE | 2020-04-22 12:57 | Diagnostic Imaging Report ---
INDICATION: Routine screening. Comparison is made to prior mammogram 10/20/2016 and 03/19/2015. 2-D and 3-D bilateral screening mammography was performed with CAD. Parenchymal pattern is stable. There are benign calcifications in both breasts. No mass or malignant-appearing microcalcifications are seen. Surgical clips left axilla are noted. IMPRESSION: BI-RADS Category 2 No mammographic features suspicious for malignancy are identified. ACR BI-RADS Category 2: Benign findings. Result letter will be mailed to the patient. Note: At least 10% of breast cancer is not imaged by mammography. Dictated by: Dictated on workstation # [id number]
== END ==
LOC: RAD 08:30
PROVIDERS: ATTEND Nurse Practitioner Adult Health
DX: Z12.31 Encounter for screening mammogram for malignant neoplasm of breast (principal); Z85.3 Personal history of malignant neoplasm of breast
CPT/HCPCS: 77063; 77067

== ENCOUNTER 2020-06-25 09:27 | Outpatient (RCR) | payer MEDICARE, OTHER ==
[2020-04-01 13:45] LABS: BASOPHILS % (AUTO) 1 % (0-10); EOSINOPHILS # (AUTO) 0.3 10^3/uL (0.0-0.3); EOSINOPHILS % (AUTO) 5 % (0-10); HEMATOCRIT 40 % (35-52); HEMOGLOBIN 13.7 G/DL (11.5-16.0); LYMPHOCYTES # (AUTO) 1.4 X 10^3 (1.0-4.0); LYMPHOCYTES % (AUTO) 21 % (12-44); MEAN CORPUSCULAR HEMOGLOBIN 33 PG (25-34); MEAN CORPUSCULAR HGB CONC 34 G/DL (32-36); MEAN CORPUSCULAR VOLUME 95 FL (80-99); MEAN PLATELET VOLUME 9.8 FL (7.4-10.4); MONOCYTES # (AUTO) 0.5 X 10^3 (0.0-1.0); MONOCYTES % (AUTO) 7 % (0-12); NEUTROPHILS # (AUTO) 4.4 X 10^3 (1.8-7.8); NEUTROPHILS % (AUTO) 66 % (42-75); PLATELET COUNT 233 10^3/uL (130-400); WHITE BLOOD COUNT 6.7 10^3/uL (4.3-11.0)
[2020-04-01 14:01] LABS: ALBUMIN 4.4 GM/DL (3.2-4.5); BILIRUBIN,TOTAL 0.4 MG/DL (0.1-1.0); CALCIUM 9.4 MG/DL (8.5-10.1); CREATININE SERUM 1.28 MG/DL (0.60-1.30); POTASSIUM 4.6 MMOL/L (3.6-5.0); TOTAL PROTEIN 7.3 GM/DL (6.4-8.2)
[2020-05-13 14:14] LABS: BASOPHILS # (AUTO) 0.1 10^3/uL (0.0-0.1); BASOPHILS % (AUTO) 1 % (0-10); EOSINOPHILS # (AUTO) 0.3 10^3/uL (0.0-0.3); EOSINOPHILS % (AUTO) 5 % (0-10); HEMATOCRIT 41 % (35-52); HEMOGLOBIN 13.8 g/dL (11.5-16.0); LYMPHOCYTES # (AUTO) 1.1 10^3/uL (1.0-4.0); LYMPHOCYTES % (AUTO) 19 % (12-44); MEAN CORPUSCULAR HEMOGLOBIN 33 pg (25-34); MEAN CORPUSCULAR HGB CONC 34 g/dL (32-36); MEAN CORPUSCULAR VOLUME 96 fL (80-99); MEAN PLATELET VOLUME 9.8 fL (9.0-12.2); MONOCYTES # (AUTO) 0.5 10^3/uL (0.0-1.0); MONOCYTES % (AUTO) 8 % (0-12); NEUTROPHILS # (AUTO) 3.8 10^3/uL (1.8-7.8); NEUTROPHILS % (AUTO) 67 % (42-75); PLATELET COUNT 226 10^3/uL (130-400); WHITE BLOOD COUNT 5.7 10^3/uL (4.3-11.0)
[2020-05-13 14:31] LABS: ALBUMIN 4.4 GM/DL (3.2-4.5); BILIRUBIN,TOTAL 0.4 MG/DL (0.1-1.0); CALCIUM 9.7 MG/DL (8.5-10.1); CREATININE SERUM 1.29 MG/DL (0.60-1.30); POTASSIUM 4.5 MMOL/L (3.6-5.0); TOTAL PROTEIN 7.3 GM/DL (6.4-8.2)
[~2020-06-25 09:27] MED LIST changes: +AMLO-250 PO; -AMLO5TAB9 PO
[2020-06-25 09:51] LABS: BASOPHILS # (AUTO) 0.1 10^3/uL (0.0-0.1); BASOPHILS % (AUTO) 1 % (0-10); EOSINOPHILS # (AUTO) 0.3 10^3/uL (0.0-0.3); EOSINOPHILS % (AUTO) 5 % (0-10); HEMATOCRIT 43 % (35-52); HEMOGLOBIN 13.6 g/dL (11.5-16.0); LYMPHOCYTES # (AUTO) 1.2 10^3/uL (1.0-4.0); LYMPHOCYTES % (AUTO) 20 % (12-44); MEAN CORPUSCULAR HEMOGLOBIN 32 pg (25-34); MEAN CORPUSCULAR HGB CONC 32 g/dL (32-36); MEAN CORPUSCULAR VOLUME 101 fL (80-99); MEAN PLATELET VOLUME 9.8 fL (9.0-12.2); MONOCYTES # (AUTO) 0.5 10^3/uL (0.0-1.0); MONOCYTES % (AUTO) 8 % (0-12); NEUTROPHILS % (AUTO) 66 % (42-75); PLATELET COUNT 219 10^3/uL (130-400)
[2020-06-25 10:19] LABS: ALBUMIN 4.3 GM/DL (3.2-4.5); BILIRUBIN,TOTAL 0.4 MG/DL (0.1-1.0); CALCIUM 9.8 MG/DL (8.5-10.1); CREATININE SERUM 1.09 MG/DL (0.60-1.30); POTASSIUM 4.9 MMOL/L (3.6-5.0); TOTAL PROTEIN 7.2 GM/DL (6.4-8.2)
== END 2020-06-30 | disposition home or self-care (01) ==
LOC: ONC 09:27
PROVIDERS: ATTEND Internal Medicine Hematology & Oncology
DX: C43.59 Malignant melanoma of other part of trunk (principal); C77.3 Secondary and unspecified malignant neoplasm of axilla and upper limb lymph nodes; C79.89 Secondary malignant neoplasm of other specified sites; I25.10 Atherosclerotic heart disease of native coronary artery without angina pectoris; I12.9 Hypertensive chronic kidney disease with stage 1 through stage 4 chronic kidney disease, or unspecified chronic kidney disease; N18.30 Chronic kidney disease, stage 3 unspecified; E78.5 Hyperlipidemia, unspecified; E03.9 Hypothyroidism, unspecified; Z79.899 Other long term (current) drug therapy; Z92.21 Personal history of antineoplastic chemotherapy; Z92.3 Personal history of irradiation; Z85.3 Personal history of malignant neoplasm of breast; Z98.890 Other specified postprocedural states
CPT/HCPCS: 80053; 83615; 85025; G0463; 36591

== ENCOUNTER → 2020-09-25 | Outpatient (CLI) | payer MEDICARE ==
[~2020-09-25] MED LIST changes: +BARIUM SUSPENSION 2.1% (VANILLA SILQ) 450 ML PO ONE; +CATHETER FLUSH 10 ML SYR IV PRN; +GADOBUTROL 10 MMOL/10 ML (GADAVIST) VIAL IV ONE; +HOLD METFORMIN - RECEIVED CONTRAST 20 ML VIAL IV SCH; +IOHEXOL 350 MG/ML 100 ML (OMNIPAQUE 350) VIAL IV ONE; -LISI-556 PO; +LISI-729 PO; +NS 100 ML (IVPB) BAG IV ONE
--- NOTE | 2020-09-25 11:56 | Diagnostic Imaging Report ---
CLINICAL INDICATION: Patient has metastatic melanoma. Patient has pain in the left side of head. EXAM: MRI of the brain performed without and with 8 cc of Gadavist IV contrast. Sequences include axial DWI, ADC map, axial gradient echo, axial T2, axial FLAIR, axial T1, axial T1 post IV contrast, coronal T1 fat-sat post IV contrast, and sagittal T1 post IV contrast. COMPARISON: Head CT without contrast dated 12/21/2017. MRI of the brain performed without and with IV contrast dated 07/07/2017. FINDINGS: There is motion artifact limiting evaluation and portions of this exam. There is no evidence of acute cerebral infarct, intracranial hemorrhage, or gross mass effect. There is no abnormal IV contrast enhancement. There is no evidence of metastatic disease. The brain parenchymal volume appears appropriate for patient's age. There is slight progression of multiple focal patchy areas of high T2 signal white matter changes seen throughout both cerebral hemispheres and periventricular regions. 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 There is normal orozco-white matter distinction. There is no significant midline shift or herniation. The [place] vascular structures show no gross abnormality as visualized. The pituitary gland, sella, and suprasellar regions are unremarkable as visualized. There is no evidence of hydrocephalus. The basal cisterns are unremarkable. The skull, extracranial soft tissue, and orbits are unremarkable. The paranasal sinuses are unremarkable. Temporal bones show no significant abnormality. IMPRESSION: 1: There is no evidence of acute intracranial process. There is no abnormal IV contrast enhancement or metastatic disease. 2: Age-related brain parenchymal changes. 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 Dictated by: Dictated on workstation # [id number]
--- NOTE | 2020-09-25 13:05 | Diagnostic Imaging Report ---
PROCEDURE: CT chest and abdomen with contrast. TECHNIQUE: Multiple contiguous axial images were obtained through the chest and abdomen after the administration of intravenous contrast. Auto Exposure Controls were utilized during the CT exam to meet ALARA standards for radiation dose reduction. INDICATION: Metastatic melanoma. Correlation is made with prior CT from 12/27/2019. CT CHEST: Multiple surgical clips are identified in the left axilla. There are several lymph nodes in the left axilla which appear to be more prominent on today's exam. The lymph node measures short axis 10 mm compared with 6 mm on prior. The right axilla is unremarkable. No definite axillary or hilar lymphadenopathy is seen. There is no pericardial or pleural fluid. Previously noted left upper lobe nodule is stable at 4 mm. A 5 mm subpleural nodule in the lateral right lower lobe appears stable. No new nodules are seen. IMPRESSION: 1. Stable pulmonary nodules. 2. There are some prominent lymph nodes in the left axilla which have increased in size since prior exam from 12/27/2019. No definite mediastinal or hilar lymphadenopathy is detected. CT ABDOMEN: No discrete liver mass is detected. Gallbladder is surgically absent. There is no biliary ductal dilatation. Pancreas is unremarkable. Hyperdense lesion in the spleen appears stable and perhaps a hemangioma. No adrenal mass is detected. Kidneys are unremarkable. Aorta is nonaneurysmal. There is no central retroperitoneal or mesenteric lymphadenopathy. There is large volume of stool throughout the colon. There is no ascites. No fluid collection is seen. Bony structures are unremarkable. IMPRESSION: Stable CT abdomen since exam from 12/27/2019. There is moderate stool consistent with constipation. Dictated by: Dictated on workstation # [id number]
== END ==
LOC: RAD 10:10
PROVIDERS: ATTEND Internal Medicine Hematology & Oncology
DX: C44.90 Unspecified malignant neoplasm of skin, unspecified (principal); G31.1 Senile degeneration of brain, not elsewhere classified; R42 Dizziness and giddiness
CPT/HCPCS: 70553; 71260; 74160

== ENCOUNTER 2020-10-30 09:14 | Outpatient (RCR) | payer MEDICARE ==
[2020-08-07 09:28] LABS: BASOPHILS # (AUTO) 0.1 10^3/uL (0.0-0.1); BASOPHILS % (AUTO) 2 % (0-10); EOSINOPHILS # (AUTO) 0.3 10^3/uL (0.0-0.3); EOSINOPHILS % (AUTO) 5 % (0-10); HEMATOCRIT 40 % (35-52); HEMOGLOBIN 13.1 g/dL (11.5-16.0); LYMPHOCYTES % (AUTO) 19 % (12-44); MEAN CORPUSCULAR HEMOGLOBIN 32 pg (25-34); MEAN CORPUSCULAR HGB CONC 33 g/dL (32-36); MEAN CORPUSCULAR VOLUME 97 fL (80-99); MEAN PLATELET VOLUME 9.7 fL (9.0-12.2); MONOCYTES # (AUTO) 0.5 10^3/uL (0.0-1.0); MONOCYTES % (AUTO) 9 % (0-12); NEUTROPHILS # (AUTO) 3.4 10^3/uL (1.8-7.8); NEUTROPHILS % (AUTO) 65 % (42-75); PLATELET COUNT 234 10^3/uL (130-400); WHITE BLOOD COUNT 5.2 10^3/uL (4.3-11.0)
[2020-08-07 09:51] LABS: ALBUMIN 4.2 GM/DL (3.2-4.5); BILIRUBIN,TOTAL 0.2 MG/DL (0.1-1.0); CALCIUM 9.3 MG/DL (8.5-10.1); CREATININE SERUM 1.11 MG/DL (0.60-1.30); POTASSIUM 4.3 MMOL/L (3.6-5.0); TOTAL PROTEIN 6.9 GM/DL (6.4-8.2)
[2020-09-18 09:41] LABS: BASOPHILS # (AUTO) 0.1 10^3/uL (0.0-0.1); BASOPHILS % (AUTO) 1 % (0-10); EOSINOPHILS # (AUTO) 0.3 10^3/uL (0.0-0.3); EOSINOPHILS % (AUTO) 4 % (0-10); HEMATOCRIT 41 % (35-52); HEMOGLOBIN 13.5 g/dL (11.5-16.0); LYMPHOCYTES # (AUTO) 1.2 10^3/uL (1.0-4.0); LYMPHOCYTES % (AUTO) 19 % (12-44); MEAN CORPUSCULAR HEMOGLOBIN 32 pg (25-34); MEAN CORPUSCULAR HGB CONC 33 g/dL (32-36); MEAN CORPUSCULAR VOLUME 97 fL (80-99); MEAN PLATELET VOLUME 9.6 fL (9.0-12.2); MONOCYTES # (AUTO) 0.4 10^3/uL (0.0-1.0); MONOCYTES % (AUTO) 6 % (0-12); NEUTROPHILS # (AUTO) 4.5 10^3/uL (1.8-7.8); NEUTROPHILS % (AUTO) 71 % (42-75); PLATELET COUNT 224 10^3/uL (130-400); WHITE BLOOD COUNT 6.4 10^3/uL (4.3-11.0)
[2020-09-18 10:02] LABS: ALBUMIN 4.2 GM/DL (3.2-4.5); BILIRUBIN,TOTAL 0.3 MG/DL (0.1-1.0); CALCIUM 9.4 MG/DL (8.5-10.1); CREATININE SERUM 1.16 MG/DL (0.60-1.30); POTASSIUM 4.4 MMOL/L (3.6-5.0); TOTAL PROTEIN 6.9 GM/DL (6.4-8.2)
[~2020-10-30 09:14] MED LIST changes: -ACYC400T PO; +ACYC400T21 PO; -BARIUM SUSPENSION 2.1% (VANILLA SILQ) 450 ML PO ONE; -CATHETER FLUSH 10 ML SYR IV PRN; -GADOBUTROL 10 MMOL/10 ML (GADAVIST) VIAL IV ONE; -HOLD METFORMIN - RECEIVED CONTRAST 20 ML VIAL IV SCH; -IOHEXOL 350 MG/ML 100 ML (OMNIPAQUE 350) VIAL IV ONE; -NS 100 ML (IVPB) BAG IV ONE
[2020-10-30 09:40] LABS: BASOPHILS % (AUTO) 1 % (0-10); EOSINOPHILS # (AUTO) 0.2 10^3/uL (0.0-0.3); EOSINOPHILS % (AUTO) 5 % (0-10); HEMATOCRIT 43 % (35-52); HEMOGLOBIN 14.1 g/dL (11.5-16.0); LYMPHOCYTES # (AUTO) 0.9 10^3/uL (1.0-4.0); LYMPHOCYTES % (AUTO) 17 % (12-44); MEAN CORPUSCULAR HEMOGLOBIN 32 pg (25-34); MEAN CORPUSCULAR HGB CONC 33 g/dL (32-36); MEAN CORPUSCULAR VOLUME 97 fL (80-99); MEAN PLATELET VOLUME 9.4 fL (9.0-12.2); MONOCYTES # (AUTO) 0.4 10^3/uL (0.0-1.0); MONOCYTES % (AUTO) 7 % (0-12); NEUTROPHILS # (AUTO) 3.5 10^3/uL (1.8-7.8); NEUTROPHILS % (AUTO) 70 % (42-75); PLATELET COUNT 232 10^3/uL (130-400)
[2020-10-30 09:55] LABS: ALBUMIN 4.3 GM/DL (3.2-4.5); BILIRUBIN,TOTAL 0.4 MG/DL (0.1-1.0); CALCIUM 9.4 MG/DL (8.5-10.1); CREATININE SERUM 1.11 MG/DL (0.60-1.30); POTASSIUM 4.3 MMOL/L (3.6-5.0); TOTAL PROTEIN 7.3 GM/DL (6.4-8.2)
== END 2020-11-05 | disposition home or self-care (01) ==
LOC: ONC 09:14
PROVIDERS: ATTEND Internal Medicine Hematology & Oncology
DX: C43.59 Malignant melanoma of other part of trunk (principal); C77.3 Secondary and unspecified malignant neoplasm of axilla and upper limb lymph nodes; C79.89 Secondary malignant neoplasm of other specified sites; I25.10 Atherosclerotic heart disease of native coronary artery without angina pectoris; I12.9 Hypertensive chronic kidney disease with stage 1 through stage 4 chronic kidney disease, or unspecified chronic kidney disease; N18.30 Chronic kidney disease, stage 3 unspecified; E78.5 Hyperlipidemia, unspecified; E03.9 Hypothyroidism, unspecified; Z79.899 Other long term (current) drug therapy; Z92.21 Personal history of antineoplastic chemotherapy; Z92.3 Personal history of irradiation; Z85.3 Personal history of malignant neoplasm of breast; Z98.890 Other specified postprocedural states
CPT/HCPCS: 80053; 83615; 85025; G0463; 36591

== ENCOUNTER → 2020-11-26 | Outpatient (CLI) | payer MEDICARE ==
[~2020-11-26] MED LIST changes: +CATHETER FLUSH 10 ML SYR IV PRN; +HOLD METFORMIN - RECEIVED CONTRAST 20 ML VIAL IV SCH; +IOHEXOL 350 MG/ML 100 ML (OMNIPAQUE 350) VIAL IV ONE; +NS 100 ML (IVPB) BAG IV ONE
--- NOTE | 2020-11-26 09:33 | Diagnostic Imaging Report ---
EXAMINATION: CT chest with intravenous contrast. TECHNIQUE: Multiple contiguous axial images were obtained through the chest after the uneventful administration of intravenous contrast. All CT scans use one or more of the following dose optimizing techniques: automated exposure control, MA and/or KvP adjustment based on patient size and exam type or iterative reconstruction. HISTORY: MALIGNANT NEOPLASM OF AXILLA UPPER LIMB LYMPH COMPARISON: CT chest 09/25/2020 FINDINGS: Thyroid: The thyroid is normal. Mediastinum: Heart size is normal without significant pericardial effusion. Calcifications of the aorta and coronary vessels. Thoracic aorta is normal in caliber. Right-sided Rvlc-F-Esqndkwq is present. No suspicious lymphadenopathy. Surgical changes from left axillary lymph node dissection. Lungs and airways: The lungs are clear without consolidation, pleural effusion, or pneumothorax. Stable 0.5 cm right lower lobe subpleural pulmonary nodule (series 3 image 86). Stable 0.4 cm left upper lobe pulmonary nodule. Stable 0.3 cm left lower lobe pulmonary nodule. The airways are normal. Upper abdomen: The gallbladder is surgically absent. Enhancing lesion within the spleen is unchanged. Mild biliary duct dilatation. Musculoskeletal: Surgical changes from median sternotomy and CABG. No suspicious osseous lesion or compression fracture. Stable subcentimeter nodule within the right breast. IMPRESSION: 1. No new findings of metastatic disease within the chest, abdomen, or pelvis. 2. Stable bilateral pulmonary nodules measuring 0.5 cm. Recommend continued attention on follow-up imaging. Dictated by: Dictated on workstation # [id number]
== END ==
LOC: RAD 08:15
PROVIDERS: ATTEND Nurse Practitioner Adult Health
DX: C77.3 Secondary and unspecified malignant neoplasm of axilla and upper limb lymph nodes (principal); R91.8 Other nonspecific abnormal finding of lung field
CPT/HCPCS: 71260

== ENCOUNTER → 2021-02-11 | Outpatient (CLI) | payer MEDICARE ==
[~2021-02-11] MED LIST changes: -CATHETER FLUSH 10 ML SYR IV PRN; -HOLD METFORMIN - RECEIVED CONTRAST 20 ML VIAL IV SCH; -IOHEXOL 350 MG/ML 100 ML (OMNIPAQUE 350) VIAL IV ONE; -NS 100 ML (IVPB) BAG IV ONE
== END ==
LOC: LABNPT 05:38
PROVIDERS: ATTEND Internal Medicine
DX: R11.2 Nausea with vomiting, unspecified (principal); R68.83 Chills (without fever); M79.10 Myalgia, unspecified site; Z20.822 Contact with and (suspected) exposure to COVID-19
CPT/HCPCS: 87635

== ENCOUNTER → 2021-02-25 | Outpatient (CLI) | payer MEDICARE ==
--- NOTE | 2021-02-25 15:24 | Diagnostic Imaging Report ---
PROCEDURE: CT abdomen and pelvis without contrast. TECHNIQUE: Multiple contiguous axial images were obtained through the abdomen and pelvis without the use of intravenous contrast. Auto Exposure Controls were utilized during the CT exam to meet ALARA standards for radiation dose reduction. INDICATION: Right lower quadrant pain and nausea. COMPARISON: Comparison is made with prior CT from 09/25/2020. FINDINGS: The lung bases are clear. The liver is unremarkable. Gallbladder is surgically absent. There is no biliary ductal dilatation. Pancreas and spleen are unremarkable. No adrenal mass is detected. No renal calculi or hydronephrosis is identified. Aorta is nonaneurysmal. Bowel loops are normal in caliber. There is moderate stool throughout the colon, particularly the ascending and transverse colon. No inflammatory changes are seen. There is no free fluid or fluid collection. There is no free air. The bladder is unremarkable. Uterus appears to be absent or atrophic. Bony structures are nonacute. IMPRESSION: 1. Moderate stool suggestive of constipation. No acute feature in the abdomen or pelvis is identified. Dictated by: Dictated on workstation # [id number]
== END ==
LOC: RAD 15:00
PROVIDERS: ATTEND Nurse Practitioner Family
DX: R10.31 Right lower quadrant pain (principal); R11.0 Nausea; Z90.49 Acquired absence of other specified parts of digestive tract
CPT/HCPCS: 74176

== ENCOUNTER 2021-03-06 10:53 | Outpatient (RCR) | payer MEDICARE ==
[2020-12-11 10:38] LABS: BASOPHILS # (AUTO) 0.1 10^3/uL (0.0-0.1); BASOPHILS % (AUTO) 1 % (0-10); EOSINOPHILS # (AUTO) 0.3 10^3/uL (0.0-0.3); EOSINOPHILS % (AUTO) 6 % (0-10); HEMATOCRIT 41 % (35-52); HEMOGLOBIN 13.3 g/dL (11.5-16.0); LYMPHOCYTES # (AUTO) 0.8 10^3/uL (1.0-4.0); LYMPHOCYTES % (AUTO) 16 % (12-44); MEAN CORPUSCULAR HEMOGLOBIN 32 pg (25-34); MEAN CORPUSCULAR HGB CONC 33 g/dL (32-36); MEAN CORPUSCULAR VOLUME 97 fL (80-99); MEAN PLATELET VOLUME 9.4 fL (9.0-12.2); MONOCYTES # (AUTO) 0.5 10^3/uL (0.0-1.0); MONOCYTES % (AUTO) 9 % (0-12); NEUTROPHILS # (AUTO) 3.4 10^3/uL (1.8-7.8); NEUTROPHILS % (AUTO) 66 % (42-75); PLATELET COUNT 231 10^3/uL (130-400); WHITE BLOOD COUNT 5.1 10^3/uL (4.3-11.0)
[2020-12-11 11:04] LABS: ALBUMIN 4.2 GM/DL (3.2-4.5); BILIRUBIN,TOTAL 0.4 MG/DL (0.1-1.0); CALCIUM 9.9 MG/DL (8.5-10.1); CREATININE SERUM 1.25 MG/DL (0.60-1.30)
[2021-01-22 11:35] LABS: BASOPHILS # (AUTO) 0.1 10^3/uL (0.0-0.1); BASOPHILS % (AUTO) 1 % (0-10); EOSINOPHILS # (AUTO) 0.3 10^3/uL (0.0-0.3); EOSINOPHILS % (AUTO) 5 % (0-10); HEMATOCRIT 41 % (35-52); HEMOGLOBIN 13.5 g/dL (11.5-16.0); LYMPHOCYTES # (AUTO) 0.9 10^3/uL (1.0-4.0); LYMPHOCYTES % (AUTO) 14 % (12-44); MEAN CORPUSCULAR HEMOGLOBIN 32 pg (25-34); MEAN CORPUSCULAR HGB CONC 33 g/dL (32-36); MEAN CORPUSCULAR VOLUME 97 fL (80-99); MEAN PLATELET VOLUME 9.5 fL (9.0-12.2); MONOCYTES # (AUTO) 0.5 10^3/uL (0.0-1.0); MONOCYTES % (AUTO) 8 % (0-12); NEUTROPHILS # (AUTO) 4.4 10^3/uL (1.8-7.8); NEUTROPHILS % (AUTO) 72 % (42-75); PLATELET COUNT 243 10^3/uL (130-400); WHITE BLOOD COUNT 6.1 10^3/uL (4.3-11.0)
[2021-01-22 12:14] LABS: ALBUMIN 4.1 GM/DL (3.2-4.5); BILIRUBIN,TOTAL 0.4 MG/DL (0.1-1.0); CALCIUM 9.8 MG/DL (8.5-10.1); CREATININE SERUM 1.3 MG/DL (0.60-1.30); POTASSIUM 4.3 MMOL/L (3.6-5.0)
[2021-03-06 11:19] LABS: BASOPHILS % (AUTO) 1 % (0-10); EOSINOPHILS # (AUTO) 0.4 10^3/uL (0.0-0.3); EOSINOPHILS % (AUTO) 7 % (0-10); HEMATOCRIT 37 % (35-52); HEMOGLOBIN 12.4 g/dL (11.5-16.0); LYMPHOCYTES # (AUTO) 0.9 10^3/uL (1.0-4.0); LYMPHOCYTES % (AUTO) 17 % (12-44); MEAN CORPUSCULAR HEMOGLOBIN 32 pg (25-34); MEAN CORPUSCULAR HGB CONC 33 g/dL (32-36); MEAN CORPUSCULAR VOLUME 96 fL (80-99); MEAN PLATELET VOLUME 9.3 fL (9.0-12.2); MONOCYTES # (AUTO) 0.6 10^3/uL (0.0-1.0); MONOCYTES % (AUTO) 10 % (0-12); NEUTROPHILS # (AUTO) 3.5 10^3/uL (1.8-7.8); NEUTROPHILS % (AUTO) 65 % (42-75); PLATELET COUNT 209 10^3/uL (130-400); WHITE BLOOD COUNT 5.4 10^3/uL (4.3-11.0)
[2021-03-06 11:45] LABS: ALBUMIN 3.7 GM/DL (3.2-4.5); BILIRUBIN,TOTAL 0.3 MG/DL (0.1-1.0); CALCIUM 9.3 MG/DL (8.5-10.1); CREATININE SERUM 1.24 MG/DL (0.60-1.30); POTASSIUM 4.2 MMOL/L (3.6-5.0); TOTAL PROTEIN 6.6 GM/DL (6.4-8.2)
== END 2021-03-11 | disposition home or self-care (01) ==
LOC: ONC 10:53
PROVIDERS: ATTEND Internal Medicine Hematology & Oncology
DX: C43.59 Malignant melanoma of other part of trunk (principal); C77.3 Secondary and unspecified malignant neoplasm of axilla and upper limb lymph nodes; C79.89 Secondary malignant neoplasm of other specified sites; I25.10 Atherosclerotic heart disease of native coronary artery without angina pectoris; I12.9 Hypertensive chronic kidney disease with stage 1 through stage 4 chronic kidney disease, or unspecified chronic kidney disease; N18.31 Chronic kidney disease, stage 3a; E78.5 Hyperlipidemia, unspecified; E03.9 Hypothyroidism, unspecified; Z79.899 Other long term (current) drug therapy; Z92.21 Personal history of antineoplastic chemotherapy; Z92.3 Personal history of irradiation; Z85.3 Personal history of malignant neoplasm of breast; Z98.890 Other specified postprocedural states; Z85.828 Personal history of other malignant neoplasm of skin; Z45.2 Encounter for adjustment and management of vascular access device
CPT/HCPCS: 80053; 83615; 85025; G0463; 36591; 96523

== ENCOUNTER → 2021-04-23 | Outpatient (CLI) | payer MEDICARE ==
--- NOTE | 2021-04-23 12:08 | Diagnostic Imaging Report ---
Indication: Routine screening. Comparison is made with prior mammogram from 04/22/2020 and 10/20/2016. 2-D and 3-D bilateral screening mammography was performed with CAD. Scattered fibroglandular densities are identified bilaterally. There are benign calcifications scattered throughout both breasts. No mass or malignant-appearing microcalcifications are seen. Axillae are unremarkable apart from multiple clips in the left axilla. IMPRESSION: BI-RADS Category 2 No mammographic features suspicious for malignancy are identified. ACR BI-RADS Category 2: Benign findings. Result letter will be mailed to the patient. Note: At least 10% of breast cancer is not imaged by mammography. Dictated by: Dictated on workstation # [id number]
== END ==
LOC: RAD 10:30
PROVIDERS: ATTEND Nurse Practitioner Adult Health
DX: Z12.31 Encounter for screening mammogram for malignant neoplasm of breast (principal)
CPT/HCPCS: 77063; 77067

== ENCOUNTER → 2021-07-07 | Outpatient (CLI) | payer MEDICARE ==
[~2021-07-07] MED LIST changes: -CITA10TA7 PO; +CITA10TA9 PO; -LISI-729 PO; +LISI5TAB20 PO
--- NOTE | 2021-07-07 14:23 | Diagnostic Imaging Report ---
INDICATION: Melanoma of the back. This study is performed for restaging. TECHNIQUE: The serum blood glucose level at the time of injection was 126 mg/dL. The patient was administered 14.2 mCi of F-18 FDG intravenously in the left antecubital location and whole body PET imaging was performed. A noncontrast CT was also performed for attenuation correction and anatomic correlation. COMPARISON: PET/CT study from 07/12/2017. FINDINGS: There is symmetric activity throughout the brain. There is a new hypermetabolic lymph node in the left supraclavicular location measuring approximately 17 mm in size with an SUV max of 6. No other hypermetabolic lymph nodes are detected. The mediastinum and nathaniel are unremarkable. The pulmonary parenchyma is unremarkable. There is physiologic activity throughout the GI and tracts of the abdomen and pelvis. The lower extremities are unremarkable. IMPRESSION: New hypermetabolic left supraclavicular lymph node when compared with the prior study from 07/12/2017. This is concerning for a metastatic lymph node. No other regions of hypermetabolism are identified. Dictated by: Dictated on workstation # [id number]
== END ==
LOC: RAD 09:00
PROVIDERS: ATTEND Internal Medicine Hematology & Oncology
DX: C43.59 Malignant melanoma of other part of trunk (principal); Z85.3 Personal history of malignant neoplasm of breast
CPT/HCPCS: 78816; A9552

== ENCOUNTER 2021-07-09 08:55 | Outpatient (RCR) | payer MEDICARE ==
[2021-04-16 11:10] LABS: BASOPHILS # (AUTO) 0.1 10^3/uL (0.0-0.1); BASOPHILS % (AUTO) 1 % (0-10); EOSINOPHILS # (AUTO) 0.2 10^3/uL (0.0-0.3); EOSINOPHILS % (AUTO) 5 % (0-10); HEMATOCRIT 40 % (35-52); HEMOGLOBIN 13.6 g/dL (11.5-16.0); LYMPHOCYTES # (AUTO) 0.7 10^3/uL (1.0-4.0); LYMPHOCYTES % (AUTO) 15 % (12-44); MEAN CORPUSCULAR HEMOGLOBIN 32 pg (25-34); MEAN CORPUSCULAR HGB CONC 34 g/dL (32-36); MEAN CORPUSCULAR VOLUME 95 fL (80-99); MEAN PLATELET VOLUME 9.6 fL (9.0-12.2); MONOCYTES # (AUTO) 0.4 10^3/uL (0.0-1.0); MONOCYTES % (AUTO) 8 % (0-12); NEUTROPHILS # (AUTO) 3.4 10^3/uL (1.8-7.8); NEUTROPHILS % (AUTO) 71 % (42-75); PLATELET COUNT 243 10^3/uL (130-400); WHITE BLOOD COUNT 4.9 10^3/uL (4.3-11.0)
[2021-04-16 11:31] LABS: BILIRUBIN,TOTAL 0.6 MG/DL (0.1-1.0); CALCIUM 9.9 MG/DL (8.5-10.1); CREATININE SERUM 1.5 MG/DL (0.60-1.30); POTASSIUM 4.3 MMOL/L (3.6-5.0)
[2021-05-28 09:18] LABS: BASOPHILS % (AUTO) 1 % (0-10); EOSINOPHILS # (AUTO) 0.3 10^3/uL (0.0-0.3); EOSINOPHILS % (AUTO) 5 % (0-10); HEMATOCRIT 41 % (35-52); HEMOGLOBIN 13.6 g/dL (11.5-16.0); LYMPHOCYTES # (AUTO) 0.8 10^3/uL (1.0-4.0); LYMPHOCYTES % (AUTO) 16 % (12-44); MEAN CORPUSCULAR HEMOGLOBIN 32 pg (25-34); MEAN CORPUSCULAR HGB CONC 33 g/dL (32-36); MEAN CORPUSCULAR VOLUME 96 fL (80-99); MEAN PLATELET VOLUME 9.9 fL (9.0-12.2); MONOCYTES # (AUTO) 0.6 10^3/uL (0.0-1.0); MONOCYTES % (AUTO) 12 % (0-12); NEUTROPHILS # (AUTO) 3.3 10^3/uL (1.8-7.8); NEUTROPHILS % (AUTO) 66 % (42-75); PLATELET COUNT 215 10^3/uL (130-400)
[2021-05-28 09:37] LABS: ALBUMIN 4.2 GM/DL (3.2-4.5); BILIRUBIN,TOTAL 0.3 MG/DL (0.1-1.0); CALCIUM 9.7 MG/DL (8.5-10.1); CREATININE SERUM 1.29 MG/DL (0.60-1.30); POTASSIUM 5.2 MMOL/L (3.6-5.0); TOTAL PROTEIN 7.3 GM/DL (6.4-8.2)
[2021-07-09 09:18] LABS: BASOPHILS # (AUTO) 0.1 10^3/uL (0.0-0.1); BASOPHILS % (AUTO) 1 % (0-10); EOSINOPHILS # (AUTO) 0.3 10^3/uL (0.0-0.3); EOSINOPHILS % (AUTO) 5 % (0-10); HEMATOCRIT 41 % (35-52); HEMOGLOBIN 13.6 g/dL (11.5-16.0); LYMPHOCYTES # (AUTO) 0.8 10^3/uL (1.0-4.0); LYMPHOCYTES % (AUTO) 15 % (12-44); MEAN CORPUSCULAR HEMOGLOBIN 32 pg (25-34); MEAN CORPUSCULAR HGB CONC 33 g/dL (32-36); MEAN CORPUSCULAR VOLUME 96 fL (80-99); MEAN PLATELET VOLUME 9.8 fL (9.0-12.2); MONOCYTES # (AUTO) 0.4 10^3/uL (0.0-1.0); MONOCYTES % (AUTO) 7 % (0-12); NEUTROPHILS % (AUTO) 71 % (42-75); PLATELET COUNT 229 10^3/uL (130-400); WHITE BLOOD COUNT 5.6 10^3/uL (4.3-11.0)
[2021-07-09 09:38] LABS: BILIRUBIN,TOTAL 0.5 MG/DL (0.1-1.0); CALCIUM 9.5 MG/DL (8.5-10.1); CREATININE SERUM 1.27 MG/DL (0.60-1.30); POTASSIUM 4.4 MMOL/L (3.6-5.0)
== END 2021-07-15 | disposition home or self-care (01) ==
LOC: ONC 08:55
PROVIDERS: ATTEND Internal Medicine Hematology & Oncology
DX: Z45.2 Encounter for adjustment and management of vascular access device (principal); C43.59 Malignant melanoma of other part of trunk; C77.3 Secondary and unspecified malignant neoplasm of axilla and upper limb lymph nodes; C79.89 Secondary malignant neoplasm of other specified sites; I25.10 Atherosclerotic heart disease of native coronary artery without angina pectoris; I12.9 Hypertensive chronic kidney disease with stage 1 through stage 4 chronic kidney disease, or unspecified chronic kidney disease; N18.31 Chronic kidney disease, stage 3a; E78.5 Hyperlipidemia, unspecified; E03.9 Hypothyroidism, unspecified; Z79.899 Other long term (current) drug therapy; Z92.21 Personal history of antineoplastic chemotherapy; Z92.3 Personal history of irradiation; Z85.3 Personal history of malignant neoplasm of breast; Z98.890 Other specified postprocedural states
CPT/HCPCS: 80053; 83615; 85025; G0463; 36591

== ENCOUNTER → 2021-07-15 | Day surgery (SDC) | payer MEDICARE ==
[~2021-07-15] MED LIST changes: +LIDOCAINE 1% INJ 20 ML 20 ML VIAL INJ ONE
--- NOTE | 2021-07-15 15:29 | Diagnostic Imaging Report ---
INDICATION: Left supraclavicular enlarged lymph node. Patient presents for ultrasound-guided biopsy. Correlation is made with the PET/CT study from 07/07/2021. Patient brought to the procedure room and placed on the table in the supine position. Ultrasound imaging of the left supraclavicular region was performed and evaluated appropriate entry site. Low left neck/supraclavicular region was prepped and draped in the usual sterile fashion. Small amount of 1% lidocaine utilized for local anesthesia. A total of 4 core biopsies were obtained of the enlarged hypoechoic mass in the left supraclavicular location utilizing a 18-gauge Temno needle. Needle was withdrawn, hemostasis was obtained. Patient tolerated procedure well, left heart in stable condition. IMPRESSION: Successful ultrasound-guided core biopsy of the enlarged lymph node left supraclavicular location. Pathology results are currently pending. Dictated by: Dictated on workstation # [id number]
== END ==
LOC: RAD 14:00
PROVIDERS: ATTEND Internal Medicine Hematology & Oncology
DX: C84.40 Peripheral T-cell lymphoma, not elsewhere classified, unspecified site (principal); R59.0 Localized enlarged lymph nodes
CPT/HCPCS: 76942

== ENCOUNTER → 2021-09-15 | Outpatient (CLI) | payer MEDICARE ==
[~2021-09-15] MED LIST changes: -LIDOCAINE 1% INJ 20 ML 20 ML VIAL INJ ONE
== END ==
LOC: CARD 14:30
PROVIDERS: ATTEND Internal Medicine Cardiovascular Disease
DX: I51.7 Cardiomegaly (principal); I34.8 Other nonrheumatic mitral valve disorders
CPT/HCPCS: 93306

== ENCOUNTER → 2021-11-24 | Outpatient (CLI) | payer MEDICARE ==
[~2021-11-24] MED LIST changes: +FEXO-338 PO; -FEXO-45 PO; -VENL150C PO; +VENL150C3 PO
--- NOTE | 2021-11-24 10:30 | Diagnostic Imaging Report ---
PROCEDURE: CT head without contrast. TECHNIQUE: Multiple contiguous axial images were obtained through the brain without the use of intravenous contrast. Auto Exposure Controls were utilized during the CT exam to meet ALARA standards for radiation dose reduction. INDICATION: Head injury. Nausea. COMPARISON: MRI brain without contrast 09/25/2020. FINDINGS: Moderate generalized parenchymal volume loss. Stable chronic lacunar infarct in the deep white matter the right frontal lobe. Prominent perivascular space in the left basal ganglia. No CT evidence of an acute territorial infarction. No intracranial hemorrhage, mass effect, hydrocephalus or extra-axial fluid collections. Osseous structures are intact. Visualized paranasal sinuses and mastoids are clear. IMPRESSION: No acute intracranial CT findings. Stable chronic findings as above. Dictated by: Dictated on workstation # [id number]
== END ==
LOC: RAD 10:00
PROVIDERS: ATTEND Nurse Practitioner Family
DX: S09.90XA Unspecified injury of head, initial encounter (principal); W19.XXXA Unspecified fall, initial encounter
CPT/HCPCS: 70450

== ENCOUNTER → 2022-02-01 | Day surgery (SDC) | payer MEDICARE ==
[~2022-02-01] MED LIST changes: +LIDOCAINE 1% INJ 20 ML VIAL INJ ONE
--- NOTE | 2022-02-01 14:19 | Diagnostic Imaging Report ---
Indication: Left supraclavicular mass biopsy. Study performed to evaluate for pneumothorax. Time of Exam: 2:00 p.m. Correlation is made with prior chest from 04/07/2019. Changes of median sternotomy and CABG are noted. Right chest wall port has tip overlying SVC right atrial junction. There are multiple surgical clips in the left axilla. Lungs are clear. No effusion is seen. There is no pneumothorax identified. Impression: No pneumothorax identified. Dictated by: Dictated on workstation # [id number]
--- NOTE | 2022-02-01 14:21 | Diagnostic Imaging Report ---
INDICATION: Left supraclavicular lymph node. Patient presents for ultrasound guided biopsy. DETAILS OF THE PROCEDURE: The patient was brought to the procedure room and placed on the table in the supine position. Ultrasound imaging of the left supraclavicular region was performed to evaluate for an appropriate entry site. The left supraclavicular region was prepped and draped in the usual sterile fashion. A small amount of 1% lidocaine was utilized for local anesthesia. A total of four core biopsies was made of the dominant mass in the lateral aspect of the supraclavicular region utilizing 14-gauge Achieve needles. Hemostasis was obtained. The patient tolerated the procedure well. IMPRESSION: Successful ultrasound guided core biopsy of the dominant mass in the left supraclavicular region. Dictated by: Dictated on workstation # [id number]
--- NOTE | 2022-02-01 14:21 | Diagnostic Imaging Report ---
INDICATION: Axillary lymphadenopathy. Patient brought to the procedure room and placed on the table in supine position. Ultrasound imaging of the left axilla was performed to evaluate appropriate entry site. Left axilla was prepped and draped in usual sterile fashion. Small amount of 1% lidocaine was utilized for local anesthesia. A total of four core biopsies were obtained of the dominant lymph node in the left axilla utilizing a 14-gauge Achieve needle. Hemostasis was obtained using manual compression. Patient tolerated the procedure well left the department in stable condition. IMPRESSION: Successful ultrasound-guided core biopsy of enlarged left axillary lymph node. Pathology results are currently pending. Dictated by: Dictated on workstation # [id number]
== END ==
LOC: RAD 13:00
PROVIDERS: ATTEND Internal Medicine Hematology & Oncology
DX: C84.40 Peripheral T-cell lymphoma, not elsewhere classified, unspecified site (principal)
CPT/HCPCS: 71045; 76942; 88185; 88307; 88341; 88342; 88360

== ENCOUNTER → 2022-05-19 | Outpatient (CLI) | payer MEDICARE ==
[~2022-05-19] MED LIST changes: -LIDOCAINE 1% INJ 20 ML VIAL INJ ONE
--- NOTE | 2022-05-19 17:46 | Diagnostic Imaging Report ---
CLINICAL INDICATIONS: Patient with no known injury. Patient started having pain in her foot. EXAM: X-ray of the left foot, 3 views. COMPARISON: None. FINDINGS: There is no acute fracture or dislocation. There is chronic appearing spurring of the base of the 5th proximal phalanx. There are hypertrophic calcaneal spurs and plantar attachment. There is spurring of the navicular bone dorsally. There is bony irregularity or chronic appearing erosion involving the medial aspect of the head of the 1st metatarsal bone. There is mild soft tissue swelling seen adjacent to the 1st MTP joint. IMPRESSION: 1: There is no evidence of acute fracture or dislocation. 2: There is questionable chronic bony erosion or spurring involving the medial aspect of the head of the 1st distal metatarsal bone. There is adjacent soft tissue swelling. 3: There is hypertrophic spurring of the base of the 5th proximal phalanx. 4: There is hypertrophic calcaneal spur at the plantar attachment. Dictated by: Dictated on workstation # [id number]
== END ==
LOC: RAD 15:24
PROVIDERS: ATTEND Internal Medicine
DX: M77.8 Other enthesopathies, not elsewhere classified (principal); M77.32 Calcaneal spur, left foot
CPT/HCPCS: 73630

== ENCOUNTER → 2022-07-16 | Outpatient (CLI) | payer MEDICARE ==
[~2022-07-16] MED LIST changes: +CLOP-31 PO; -CLOP75TA69 PO
--- NOTE | 2022-07-16 12:08 | Diagnostic Imaging Report ---
INDICATION: Routine screening. Comparison is made with prior mammogram to 04/23/2021 and 04/22/2020. 2-D and 3-D bilateral screening mammography was performed with CAD. Scattered fibroglandular densities are identified bilaterally. Postoperative changes right breast are noted. There are benign parenchymal and vascular calcifications throughout the right breast. The left breast appears stable. No new mass or malignant-appearing microcalcifications are seen. Surgical clips left axilla are again noted. IMPRESSION: No mammographic features suspicious for malignancy are identified. ACR BI-RADS Category 2: Benign findings. Result letter will be mailed to the patient. Note: At least 10% of breast cancer is not imaged by mammography. BI-RADS Category 2 Dictated by: Dictated on workstation # [id number]
== END ==
LOC: RAD 11:00
PROVIDERS: ATTEND Nurse Practitioner Family
DX: Z12.31 Encounter for screening mammogram for malignant neoplasm of breast (principal)
CPT/HCPCS: 77063; 77067

== ENCOUNTER → 2022-08-06 | Outpatient (CLI) | payer MEDICARE ==
[~2022-08-06] MED LIST changes: +CATHETER FLUSH 10 ML SYR IVP PRN; +REGADENOSON 0.4 MG/5 ML SYR (LEXISCAN) IV ONE
[2022-08-06 08:45] VITALS: BP 128/80
[2022-08-06 08:50] VITALS: BP 137/67
--- NOTE | 2022-08-12 15:19 | STRESS TEST ---
DATE OF SERVICE: 08/06/2022 RESTING AND POST REGADENOSON TECHNETIUM-99M TETROFOSMIN SPECT CT IMAGING CLINICAL DIAGNOSIS: Coronary artery disease. ORDERING PHYSICIAN: Dr. Hill. PRIMARY PHYSICIAN: Dr. Palumbo. Baseline images were carried out after injection of 10.25 mCi Technetium-99m Tetrofosmin. This is followed by 0.4 mg of regadenoson and 30 mCi of technetium-99m tetrofosmin for stress imaging. The electrocardiogram showed sinus rhythm at baseline. There was baseline ST segment abnormality, which became somewhat more prominent with regadenoson infusion. The patient did not report symptoms. Review of images at rest and following stress indicate a predominantly transient dyan-apical perfusion defect. Gated images show apical hypokinesis. Left ventricular ejection fraction appears to be mildly impaired. Left ventricular ejection fraction is calculated to be 44%. CONCLUSIONS: 1. This study is indicative of a moderate degree of anteroapical ischemia (SDS 7). 2. Apical hypokinesis. 3. Impairment in global left ventricular systolic function with a calculated ejection fraction of 44%. Job ID: [id number] DocumentID: [id number] Dictated Date: 08/12/2022 12:19:27 Color Dipper Date: 08/12/2022 15:18:00 Dictated By: SHAQ HILL MD; KENA; FACP; DAJAC; LESLIE
== END ==
LOC: CARD 07:30
PROVIDERS: ATTEND Internal Medicine Cardiovascular Disease
DX: I25.10 Atherosclerotic heart disease of native coronary artery without angina pectoris (principal)
CPT/HCPCS: 78452; 93017; A9502

== ENCOUNTER 2022-08-24 08:45 | Day surgery (SDC) | payer MEDICARE ==
[~2022-08-24] VITALS: Ht 175 cm; Wt 82.5 kg
[2022-08-24] VITALS (8 sets, daily range): BP systolic 125–138; BP diastolic 60–71
[~2022-08-24 08:45] MED LIST changes: -CATHETER FLUSH 10 ML SYR IVP PRN; -REGADENOSON 0.4 MG/5 ML SYR (LEXISCAN) IV ONE
[2022-08-24] MEDS ORDERED: HEParin (CATH LAB) 2,000 ML IV ONE (08:57)
[2022-08-24] MEDS ORDERED: LIDOCAINE 1% INJ 20 ML VIAL ONE (08:57)
[2022-08-24] MEDS ORDERED: NS IV 1000 ML 1,000 ML ONE (08:57)
[2022-08-24] MEDS ORDERED: NS IV 1000 ML 1,000 ML IV ONE (09:00)
[2022-08-24] MEDS ORDERED: fentaNYL INJ 100 MCG/2 ML AMP ONE (09:35)
[2022-08-24] MEDS ORDERED: MIDAZOLAM 5 MG/5 ML (VERSED) VIAL ONE (09:36)
[2022-08-24 09:37] LABS: HEMATOCRIT 35 % (35-52); HEMOGLOBIN 11.8 g/dL (11.5-16.0); MEAN CORPUSCULAR HEMOGLOBIN 33 pg (25-34); MEAN CORPUSCULAR HGB CONC 34 g/dL (32-36); MEAN CORPUSCULAR VOLUME 99 fL (80-99); MEAN PLATELET VOLUME 9.9 fL (9.0-12.2); PLATELET COUNT 155 10^3/uL (130-400); WHITE BLOOD COUNT 3.5 10^3/uL (4.3-11.0)
[2022-08-24] MEDS ORDERED: MTP25TSR PO (09:38)
[2022-08-24] MEDS ORDERED: ASPI-999 PO (09:38)
[2022-08-24] MEDS ORDERED: POTA10CA44 PO (09:38)
[2022-08-24] MEDS ORDERED: ISOS60TA63 PO (09:38)
[2022-08-24] MEDS ORDERED: LEVO100C4 PO (09:38)
[2022-08-24] MEDS ORDERED: AMLO-251 PO (09:38)
[2022-08-24] MEDS ORDERED: VENL-48 PO (09:38)
[2022-08-24 09:48] LABS: PROTHROMBIN TIME PATIENT 13.2 SEC (12.2-14.7)
[2022-08-24 09:55] LABS: ALBUMIN 3.8 GM/DL (3.2-4.5); BILIRUBIN,TOTAL 0.4 MG/DL (0.1-1.0); CALCIUM 9.7 MG/DL (8.5-10.1); CREATININE SERUM 1.09 MG/DL (0.60-1.30); TOTAL PROTEIN 6.3 GM/DL (6.4-8.2)
[2022-08-24] MEDS ORDERED: HEParin 1000 UNIT/ML (10ML VIAL) FOR BOLUS ONE (10:05)
[2022-08-24] MEDS ORDERED: NITRO DRIP 25000 MCG/D5W 0 ML IV ONE (10:05)
--- NOTE | 2022-08-24 11:19 | Cardiac Procedure Note-CS/ASA ---
Pre-Procedure Note Pre-Op Procedure Note Date of Available H&P: Aug 16, 2022 Date H&P Reviewed: Aug 24, 2022 Time H&P Reviewed: 09:30 History & Physical: H&P Reviewed, No changes noted Conscious Sedation Pre-Proced ASA Score 3 For ASA 3 and 4: Consider anesthesia and medical clearance. Also, for patients with a history of failed moderate sedation consider anesthesia. Airway Lungs Heart ASA score ASA 1: a normal healthy patient ASA 2: a patient with a mild systemic disease (mid diabetes, controlled hypertension, obesity ASA 3: a patient with a severe systemic disease that limits activity (angina, COPD, prior Myocardial infarction) ASA 4: a patient with an incapacitating disease that is a constant threat to life (CHF, renal failure) ASA 5: a moribund patient not expected to survive 24 hrs. (ruptured aneurysm) ASA 6: a declared brain- patient whose organs are being harvested. For emergent operations, add the letter E after the classification Mallampati Classification Grade 2 Sedation Plan Analgesia, Amnesia, Plan communicated to team members, Discussed options with patient/fam, Discussed risks with patient/fam The patient is an appropriate candidate to undergo the planned procedure, sedation, and anesthesia. The patient immediately re-assessed prior to indication. SHAQ JUNIOR MD FACP FAC CCDS Aug 24, 2022 11:19
[2022-08-24] MEDS ORDERED: NS IV 1000 ML 1,000 ML IV SCH (11:30)
[2022-08-24] MEDS ORDERED: PATIENT MAY USE OWN MEDS, ALL PO SCH (11:30)
[2022-08-24] MEDS ORDERED: ACETAMINOPHEN ER 650 MG (TYLENOL ARTHRITIS) PO PRN (11:30)
--- NOTE | 2022-08-24 13:29 | CARDIAC CATHETERIZATION ---
DATE OF SERVICE: 08/24/2022 CARDIAC CATHETERIZATION REPORT INDICATION: The patient is a 77-year-old lady with a history of coronary artery disease and coronary artery bypass surgery and subsequent percutaneous interventions. Lately, she has been having symptoms of chest discomfort. Myocardial perfusion imaging had indicated considerable anteroapical ischemia. Cardiac catheterization was carried out after having obtained an informed consent. DESCRIPTION OF PROCEDURE: She was brought to the cardiac catheterization laboratory in a fasting state. Right groin was prepared and draped in the usual sterile fashion. 1% lidocaine was used for local anesthesia. Modified Seldinger technique was used to advance a 6-Yoruba sheath in the right femoral artery. We used a 5-Yoruba JR4 catheter for angiography of the saphenous vein graft to the right coronary and a saphenous vein graft to the left anterior descending. Right coronary artery was not selectively engaged because it is known to be chronically proximally occluded. We then tried multiple catheters to engage the left coronary artery. All catheters were unsuccessful in engaging the artery. We were able to finally achieve a subselective angiogram of the left coronary system with a 6-Yoruba CLF3.5 guide catheter. This resulted in adequate views. The catheter was then removed and we carried out left heart catheterization with a 5-Yoruba pigtail catheter. Left ventricular angiography was performed. The catheter was pulled back and removed. Angiography of the right femoral artery was carried out through the sheath. Mynx was used to achieve hemostasis. She tolerated the procedure well. HEMODYNAMICS: Left ventricular end diastolic pressure following coronary angiography was 9 mmHg. There was no significant pressure gradient on pullback across the aortic valve. CORONARY ANGIOGRAPHY: Left main coronary artery has approximately 40% ostial stenosis and 95% distal stenosis. 95% distal stenosis also involves the ostia of the left anterior descending and the left circumflex arteries. Distally, the left anterior descending and in the left circumflex artery, there is diffuse moderate disease. The right coronary artery is known to be occluded in its proximal portion. SAPHENOUS VEIN GRAFT ANGIOGRAPHY: The superior graft is known to be a saphenous vein graft to left anterior descending and it is occluded at its ostium. The more caudal graft is to the distal right coronary artery. It is widely patent. There is good distal runoff. LEFT VENTRICULAR ANGIOGRAPHY: Left ventricular angiography was carried out in the right anterior oblique projection. There is anteroapical hypokinesis. Left ventricular ejection fraction is estimated to be 45-50%. CONCLUSION: 1. Coronary artery disease, primarily consisting of a 95-99% distal stenosis of the left main coronary and ostial stenosis of the left anterior descending and the left circumflex arteries. rest of the left anterior descending and left circumflex arteries have diffuse moderate disease. Right coronary artery is occluded in its proximal portion and has a widely patent graft to its distal portion. A saphenous vein graft to the left anterior descending artery is occluded at its ostium. 2. Normal left ventricular end-diastolic pressure. 3. Anteroapical hypokinesis and left ventricular ejection fraction of 45-50%. DISCUSSION RECOMMENDATIONS: The patient has critical stenosis of the distal left main and the ostia of the left anterior descending and the left circumflex arteries. We called Dr. Roque of the interventional cardiovascular services at [facility] who has kindly accepted the patient in transfer for consideration of intervention. Arrangements are being made at the time of this dictation. Job ID: [id number] DocumentID: [id number] Dictated Date: 08/24/2022 11:00:06 [employer] Operator Date: 08/24/2022 13:27:00 Dictated By: SHAQ JUNIOR MD; KENA; FACP; FACC;
[2022-08-24] MEDS ORDERED: ACYCLOVIR 400 MG TABLET (ZOVIRAX) PO SCH (21:00)
[2022-08-25] MEDS ORDERED: ASPIRIN 81 MG CHEW (CHILDREN'S ASA) PO SCH (09:00)
[2022-08-25] MEDS ORDERED: CLOPIDOGREL 75 MG (PLAVIX) TABLET PO SCH (09:00)
[2022-08-25] MEDS ORDERED: amLODIPine 10 MG (NORVASC) TAB PO SCH (09:00)
[2022-08-25] MEDS ORDERED: KCL 10 MEQ TAB (MICRO K) PO SCH (09:00)
[2022-08-25] MEDS ORDERED: ISOSORBIDE MONONITRATE 60 MG (IMDUR) TAB PO SCH (09:00)
[2022-08-25] MEDS ORDERED: polyethylene glycoL POWDER 17 GM (MIRALAX) PACK PO SCH (09:00)
[2022-08-25] MEDS ORDERED: HYOSCYAMINE 0.125 MG (LEVSIN) TAB PO SCH (09:00)
== END 2022-08-24 12:45 | disposition short-term general hospital, planned readmission (82) ==
LOC: CATH 08:45 → ICU 11:10 → CATH 12:45
PROVIDERS: ATTEND Internal Medicine Cardiovascular Disease
DX: I25.119 Atherosclerotic heart disease of native coronary artery with unspecified angina pectoris (principal); I12.9 Hypertensive chronic kidney disease with stage 1 through stage 4 chronic kidney disease, or unspecified chronic kidney disease; E78.2 Mixed hyperlipidemia; I65.23 Occlusion and stenosis of bilateral carotid arteries; I73.9 Peripheral vascular disease, unspecified; N18.30 Chronic kidney disease, stage 3 unspecified; Z85.72 Personal history of non-Hodgkin lymphomas; Z79.02 Long term (current) use of antithrombotics/antiplatelets; Z95.1 Presence of aortocoronary bypass graft; Z79.82 Long term (current) use of aspirin
CPT/HCPCS: 80053; 80061; 85027; 85610; 85730; 93005; 93459; C1760; C1769; C1887 ×2; C1894; 36415

== ENCOUNTER → 2022-10-15 | Outpatient (RCR) | payer MEDICARE ==
[~2022-10-15] MED LIST changes: +AMLO-251 PO; +ASPI-999 PO; +ISOS60TA63 PO; +LEVO100C4 PO; +POTA10CA44 PO; +VENL-48 PO
== END | disposition home or self-care (01) ==
LOC: CR 09-22 08:30
PROVIDERS: ATTEND Internal Medicine Cardiovascular Disease
DX: Z29.8 Encounter for other specified prophylactic measures (principal); Z95.5 Presence of coronary angioplasty implant and graft
CPT/HCPCS: 93798

== ENCOUNTER 2022-11-12 11:12 | Outpatient (RCR) | payer MEDICARE | END 2022-11-14 | disposition home or self-care (01) | LOC: CR 11:12 | PROVIDERS: ATTEND Internal Medicine Cardiovascular Disease | DX: Z29.8 Encounter for other specified prophylactic measures (principal); Z95.5 Presence of coronary angioplasty implant and graft | CPT/HCPCS: 93798 ==

== ENCOUNTER → 2022-12-15 | Outpatient (RCR) | payer MEDICARE | END | disposition home or self-care (01) | LOC: CR 11-15 07:54 | PROVIDERS: ATTEND Internal Medicine Cardiovascular Disease | DX: Z29.8 Encounter for other specified prophylactic measures (principal); Z95.5 Presence of coronary angioplasty implant and graft | CPT/HCPCS: 93798 ==

== ENCOUNTER 2022-12-24 10:59 | Outpatient (RCR) | payer MEDICARE | END 2023-01-14 | disposition home or self-care (01) | LOC: CR 10:59 | PROVIDERS: ATTEND Internal Medicine Cardiovascular Disease | DX: Z29.8 Encounter for other specified prophylactic measures (principal); Z95.5 Presence of coronary angioplasty implant and graft | CPT/HCPCS: 93798 ==